=== PATIENT | female | born 1935 | race Caucasian/White ===

== ENCOUNTER 2020-12-23 12:19 | Outpatient (RCR) | payer MEDICARE, SELFPAY ==
[2020-12-23] MEDS: COVID-19 VACC, MRNA(PFIZER)/PF 30 MCG/0.3 ML SYRINGE IM (11:43)
== END 2021-03-24 23:59 ==
LOC: IMMUN 12:19
PROVIDERS: PCP Family Medicine; Visit Provider Family Medicine
DX: Z23 Encounter for immunization (principal)
CPT/HCPCS: 0001A; 91300

== ENCOUNTER → 2021-07-22 | Outpatient (CLI) | payer MEDICARE, SELFPAY ==
[2021-07-22 15:43] LABS: Absolute Lymphocyte Count 1.56 X10^3/uL (0.83-4.51); Absolute Neutrophil Count 4.2 X10^3/uL (2.0-7.7); Basophil# 0.03 X10^3/uL; Basophil% 0.5 % (0-1); Eosinophil# 0.26 X10^3/uL; Eosinophils% 4.1 % (0-5); Hematocrit 38.4 % (37-47); Hemoglobin 12.7 g/dL (12.0-15.0); Lymphocyte # 1.56 X10^3/ul (0.83-4.51); Lymphocyte % 24.4 % (19-41); Mean Corp Hgb Conc 33.1 g/dL (32-36); Mean Corpuscular Hgb 28.9 pg (27.0-32.0); Mean Corpuscular Volume 87.5 fL (81-99); Mean Platelet Vol. 11.3 fl (6.2-12.0); Monocyte# 0.39 X10^3/uL; Monocyte% 6.1 % (0-10); NRBC Flagged by Analyzer 0 % (0-5); Neutrophil # 4.15 X10^3/uL (2.7-7.7); Neutrophil % 64.7 % (47-70); POSITIVE COUNT YES; Platelet Count 252 K/mm3 (150-450); RBC Distribution Width CV 12.6 % (11.6-14.6); RBC Distribution Width SD 40.6 fl (35.1-43.9); Red Blood Count 4.39 M/mm3 (4.2-5.4); White Blood Count 6.4 K/mm3 (4.4-11.0)
[2021-07-22 15:53] LABS: AST(SGOT) 15 U/L (15-37); Alanine Aminotransfer ALT/SGPT 14 U/L (13-56); Albumin, Serum 3.3 g/dL (3.2-5.0); Alkaline Phosphatase 60 U/L (45-117); Anion Gap 8 (5-15); BUN 19 mg/dL (7-18); BUN/Creat Ratio 17.6 RATIO (10-20); Calcium,Total 9.2 mg/dL (8.5-10.1); Chloride 96 mmol/L (98-107); Creatinine, Serum 1.08 mg/dL (0.55-1.02); EST Glomerular Filtration Rate 51 mL/min (>60); Est Glom Filt Rate - Afr Amer 62 mL/min (>60); Globulin 3.2 g/dL (2.2-4.2); Glucose 154 mg/dL (74-106); Potassium 2.9 mmol/L (3.5-5.1); Protein, Total 6.5 g/dL (6.4-8.2); Sodium Level 138 mmol/L (136-145)
[2021-07-22 15:55] LABS: Differential Indicated SCAN CRITERIA MET
[2021-07-22 15:58] LABS: Hemoglobin A1c 6.5 % (3.8-5.6)
[2021-07-22 16:59] LABS: Platelet Estimate ADEQUATE (ADEQ); Red Cell Morphology NORM C+C NORMAL (NORM C&C)
== END | disposition home or self-care (01) ==
LOC: LABSPEC 14:52
PROVIDERS: PCP Family Medicine; Referring Provider Family Medicine; Visit Provider Family Medicine
DX: E11.9 Type 2 diabetes mellitus without complications (principal)
CPT/HCPCS: 80053; 83036; 85025

== ENCOUNTER 2023-11-25 08:58 | Inpatient (IN) | payer MEDICARE, MEDICAID, SELFPAY ==
[2023-11-25] VITALS (11 sets, daily range): BP systolic 129–168; BP diastolic 59–84; PULSE 65–86; RESP 12–21; TEMP 36.2–37.1; O2SAT 93–100; BMI 37.9; BMI 37.0
--- NOTE | 2023-11-25 09:15 | RAD_ITS ---
STUDY: X-RAY - LEFT KNEE REASON FOR EXAM: Female, 88 years old. Injury. Patient fell out of chair yesterday, left ankle pain, swelling, discoloring. TECHNIQUE: 2 views of the left knee. COMPARISON: None. FINDINGS: There is diffuse osteopenia. There is a fracture of the lateral aspect of the lateral tibial plateau. There is also a nondisplaced fracture of the proximal fibular metadiaphysis. Normal visualized distal femur. Normal proximal tibiofibular articulation. Normal medial femorotibial compartment. Normal lateral femorotibial compartment. Normal patellofemoral articulation. There is a large joint effusion. There are atherosclerotic calcifications. RAD/Knee 1 or 2 Views IMPRESSION: Diffuse osteopenia. Fracture of the lateral aspect of the lateral tibial plateau. Nondisplaced fracture of the proximal fibular metadiaphysis. Large joint effusion. Electronically Signed: Mio Schroeder MD at 10:29 EST ,
--- NOTE | 2023-11-25 09:15 | RAD_ITS ---
STUDY: X-RAY - LEFT ANKLE REASON FOR EXAM: Female, 88 years old. Injury. TECHNIQUE: 3 views of the left ankle. COMPARISON: None. FINDINGS: There is a suspected fracture of the medial malleolus of the distal tibia. There is an oblique fracture of the distal fibula. Intact visualized talus and calcaneus. There are plantar and posterior calcaneal spurs. The visualized subtalar, talonavicular, calcaneocuboid and tarsal articulations are normal. There is soft tissue swelling around the ankle. RAD/Ankle min 3 Views IMPRESSION: Suspected fracture of the medial malleolus of the distal tibia. Oblique fracture of the distal fibula. Plantar and posterior calcaneal spurs. Soft tissue swelling around the ankle. Electronically Signed: Mio Schroeder MD at 10:32 EST ,
[2023-11-25] MEDS: Ondansetron 4 MG/2 ML Vial IV (10:14)
[2023-11-25] MEDS: fentaNYL 100 MCG/2 ML Ampul 50 MCG IV (10:14)
--- NOTE | 2023-11-25 10:15 | EDS_ITS ---
HPI History of Present Illness Chief Complaint: Lower Extremity Injury Informant: patient and EMS Narrative Narrative: Patient had a injury home, where she lives with her , injuring her left ankle and she also has some pain up to her left knee. This occurred last night, while she was attempting to get in to her [id number] chair, after which her usually uses her Michael lift to help her get into bed, etc. She does not walk. She transitions though and she can use her legs to stand and help her self get from a sitting position to standing with the assistance of this chair. She was attempting to get into it when she slipped, did not know she injured anything, called paramedics so that they could get a lift assist, and there were no issues. This morning, they noticed that her left ankle is swollen, bruised, and very painful. She is on no anticoagulants. She did not injure anything else but unable to stand or move the left leg due to the pain. States no prodromal symptoms that she was well prior to this. PFSH PFSH Home Medications carvedilol 3.125 mg tablet 3.125 mg PO Q12H 11/25/23 [History Last Taken 11/24/23] enalapril maleate 20 mg tablet 20 mg PO Q12H 11/25/23 [History Last Taken 11/24/23] fluticasone 500 mcg-salmeterol 50 mcg/dose blistr powdr for inhalation 1 inh inhalation Q12H 11/25/23 [History Last Taken 11/24/23] furosemide 40 mg tablet 40 mg PO DAILY 11/25/23 [History Last Taken 11/24/23] glimepiride 1 mg tablet 1 mg PO DAILY 11/25/23 [History Last Taken 11/24/23] hydralazine 25 mg tablet 25 mg PO Q8H 11/25/23 [History Last Taken 11/24/23] multivitamin (Daily Multi-Vitamin tablet) 1 tab PO DAILY 11/25/23 [History Last Taken 11/24/23] nystatin 100,000 unit/gram topical cream 1 applic topical DAILY 11/25/23 [H istory Last Taken Unknown] omeprazole 40 mg capsule,delayed release 40 mg PO DAILY 11/25/23 [History Last Taken 11/24/23] rosuvastatin 10 mg tablet 10 mg PO DAILY 11/25/23 [History Last Taken 11/24/23] Allergy/AdvReac Type Severity Reaction Status Date / Time acetaminophen [From Tylenol] Allergy Rash Verified 11/25/23 09:06 Penicillins Allergy Other Verified 11/25/23 09:[address] [facility] ED Constitutional Constitutional ED: Denies chills or fever(s) Eyes Eyes: Denies change in vision or diplopia ENT ENT ED: Denies ear pain, epistaxis, facial pain or rhinorrhea Cardiovascular Cardiovascular: Denies chest pain or palpitations Respiratory/Chest Respiratory/Chest: Denies cough or dyspnea Gastrointestinal Gastrointestinal: Denies abdominal pain, diarrhea, melena, nausea or vomiting Genitourinary Genitourinary ED: Denies dysuria or hematuria Musculoskeletal Musculoskeletal: Reports extremity pain; Denies back pain or neck pain Integumentary Denies abscess, Abrasions, laceration or rash Neurologic Neurologic: Denies confusion, headache(s), paresthesias or weakness EXAM Physical Exam Const Vital Signs: 11/25/23 09:00 Temperature 97.2 F L Temperature Source Temporal Pulse Rate 68 Respiratory Rate 21 H Blood Pressure 159/75 H Blood Pressure Mean 103 Pulse Ox 93 Oxygen Delivery Method Room Air Positive well nourished, well developed and obese General Appearance ED: well developed and NAD Nutritional Appearance: obese HEENT Reports TM's clear and nasal mucous membranes and turbinates normal atraumatic Face and Sinus: Negative for facial tenderness Tympanic Membrane ED: Yes TM's clear Eyes PERRL and EOMs intact bilaterally Visual Acuity: other Other Details: no entrapment or pain with extraocular mo vements Neck full ROM and supple General: Negative for tenderness Chest Wall inspection of chest normal and palpation of chest normal Chest: symmetrical chest wall rise; Negative for crepitus or tenderness Resp normal respiratory effort and clear to auscultation bilaterally Percussion: other equal BS bilat Cardio no murmurs Rate: regular rate Rhythm: regular rhythm GI normal to inspection, nondistended, normoactive bowel sounds, soft to palpation and non-tender Back/Spine normal ROM Cervical Spine: Negative for cervical spine tenderness Thoracic Spine / Upper Back: Negative for thoracic spinal tenderness Lumbar Spine / Lower Back: Negative for lumbar spinal tenderness Extremity Extremity Narrative: Significant swelling and ecchymosis along with diffuse tenderness left ankle. No gross deformity. Neurovascular intact distally with brisk cap refill but I cannot feel pulses because of the edema. There is no foot tenderness proper. She does have tenderness in the lateral aspect of the left knee and limited range of motion there. I am having trouble ranging her left hip to check it for pain due to pain in the knee and the ankle, however she does not have any pain or tenderness there, nor the pelvis. She can move the other 3 extremities without any pain anywhere. There is no laceration of the left lower extremity or bleeding externally. General Extremety ED: Yes tenderness Neuro oriented x3, CN's II-XII intact bilaterally, moves all extremities, no focal motor deficits and no sensory deficits noted Ania Coma Scale: document GCS findings Spontaneous Obeys Commands Oriented 15 Sensorium / Orientation: awake and alert Psych mental status grossly normal and thought process normal Skin no wounds Lesions: no lesions Rashes: no rashes MDM MDM MDM Narrative Medical decision making narrative: Three-view x-ray series of the left ankle shows a bimalleolar fracture, there is no significant displacement. 2 view x-ray series of the left knee shows a proximal fibula fracture, concerning for Maison[place]uve injury. Patient is not able to go home with this, she can barely move much less walk on her right lower extremity without bearing weight on the left. Preoperative testing was obtained and I discussed with orthopedics, Dr. Ochoa was on for unassigned patients. Discussed with him, he states he is happy to consult, this may actually be a patient thatends up being casted without surgery . Will admit. Splinted see the procedure note. Lab Data Attestation: I reviewed the patient's lab results. Labs: Laboratory Results - last 24 hr 11/25/23 10:31 WBC 13.0 H RBC 3.99 L Hgb 11.3 L Hct 34.7 L MCV 87.0 MCH 28.3 MCHC 32.6 RDW Std Deviation 41.4 RDW Coeff of Yasir 13.1 Plt Count 280 MPV 10.5 Immature Gran % (Auto) 0.300 Neut % (Auto) 80.4 H Lymph % (Auto) 11.7 L [place] % (Auto) 6.6 Eos % (Auto) 0.7 Baso % (Auto) 0.3 Absolute Neuts (auto) 10.4 H Absolute Lymphs (auto) 1.51 Nucleated RBC % 0 Sodium 138 Potassium 3.2 L Chloride 100 Carbon Dioxide 33.0 H Anion Gap 5 BUN 13 Creatinine 0.96 Est GFR (MDRD) Af Amer 70 Est GFR (MDRD) Non-Af 58 L BUN/Creatinine Ratio 13.5 Glucose 207 H Calcium 9.3 Radiography Diagnostic Testing: Clinical Impression(s) from Imaging Studies Ankle X-Ray 11/25/23 09:15 IMPRESSION: Suspected fracture of the medial malleolus of the distal tibia. Oblique fracture of the distal fibula. Plantar and posterior calcaneal spurs. Soft tissue swelling around the ankle. Electronically Signed: Mio Schroeder MD at 10:32 EST , Knee X-Ray 11/25/23 09:15 IMPRESSION: Diffuse osteopenia. Fracture of the lateral aspect of the lateral tibial plateau. Nondisplaced fracture of the proximal fibular metadiaphysis. Large joint effusion. Electronically Signed: Mio Schroeder MD at 10:29 EST , Chest X-Ray 11/25/23 10:45 IMPRESSION: Borderline cardiomegaly. The lungs are clear. Electronically Signed: Edgardo Lennon MD at 10:58 EST , Rhythm Strip Rhythm Strip: Sinus Rhythm Rate: 75 Ectopy: PVC(s) EKG Initial EKG: Attestation: I personally reviewed and interpreted this EKG as follows: Interpretation: Sinus Rhythm, No Acute Injury Pattern, LBBB and Inverted T-Waves (1, aVL only) Prior EKG tracings: not available for review Prior: No Prior Management Discussion w/another healthcare provider: Hospitalist and Test Manager (Elham Ochoa) Procedures Lower Extremity Splints Lower Extremity Splint: Orthoglass and Long leg (With sugar-tong) Splint Fabrication: Fabricated (Neurovascular intact distally after placement) Location: Left Discharge Plan Dx/Rx/DC Orders Clinical Impression: Bimalleolar fracture of left ankle, Closed Maisonneuve fracture of left fibula Disposition Disposition: Acute Care Hospital [facility]
[2023-11-25 10:45] LABS: Absolute Lymphocyte Count 1.51 X10^3/uL (0.83-4.51); Absolute Neutrophil Count 10.4 X10^3/uL (2.0-7.7); Basophil# 0.04 X10^3/uL; Basophil% 0.3 % (0-1); Eosinophil# 0.09 X10^3/uL; Eosinophils% 0.7 % (0-5); Hematocrit 34.7 % (37-47); Hemoglobin 11.3 g/dL (12.0-15.0); Lymphocyte # 1.51 X10^3/ul (0.83-4.51); Lymphocyte % 11.7 % (19-41); Mean Corp Hgb Conc 32.6 g/dL (32-36); Mean Corpuscular Hgb 28.3 pg (27.0-32.0); Mean Platelet Vol. 10.5 fl (6.2-12.0); Monocyte# 0.85 X10^3/uL; Monocyte% 6.6 % (0-10); NRBC Flagged by Analyzer 0 % (0-5); Neutrophil # 10.43 X10^3/uL (2.7-7.7); Neutrophil % 80.4 % (47-70); Platelet Count 280 K/mm3 (150-450); RBC Distribution Width CV 13.1 % (11.6-14.6); RBC Distribution Width SD 41.4 fl (35.1-43.9); Red Blood Count 3.99 M/mm3 (4.2-5.4)
--- NOTE | 2023-11-25 10:45 | RAD_ITS ---
STUDY: X-RAY CHEST REASON FOR EXAM: Female, 88 years old. Preop clearance TECHNIQUE: Single AP portable view of the chest. COMPARISON: None. FINDINGS: EKG electrodes are seen. The lungs are clear and expanded. There is no demonstrated pleural abnormality. There is borderline cardiomegaly. Normal mediastinum and augustina. Normal visualized pulmonary arteries. There is atherosclerotic calcification of the aortic arch with tortuosity. Normal visualized thoracic spine. There is degenerative osteoarthritis of the bilateral shoulders. There is no demonstrated abnormality of the visualized soft tissue structures of the upper abdomen. RAD/Chest 1 View (Portable) IMPRESSION: Borderline cardiomegaly. The lungs are clear. Electronically Signed: Edgardo Lennon MD at 10:58 EST ,
[2023-11-25 10:51] LABS: Anion Gap 5 (5-15); BUN 13 mg/dL (7-18); BUN/Creat Ratio 13.5 RATIO (10-20); Calcium,Total 9.3 mg/dL (8.5-10.1); Chloride 100 mmol/L (98-107); Creatinine, Serum 0.96 mg/dL (0.55-1.02); EST Glomerular Filtration Rate 58 mL/min (>60); Est Glom Filt Rate - Afr Amer 70 mL/min (>60); Glucose 207 mg/dL (74-106); Potassium 3.2 mmol/L (3.5-5.1); Sodium Level 138 mmol/L (136-145)
--- NOTE | 2023-11-25 10:52 | ED.RN ---
NO OLD EKG
--- NOTE | 2023-11-25 11:42 | PCM.HP.STD ---
HPI - General General Date of Admission: 11/25/23 Date of Service: 11/25/23 Chief Complaint: Left lower extremity swelling and pain HPI Narrative JEANNETTE PATEL, is a 88 F with multiple comorbidities Including obesity with BMI of 37, dyslipidemia and GERD, who is hardly ambulatory at home brought to the emergency department by the . Patient apparently fell a day prior to her admission was tried to get into her sit to stand chair. She apparently twisted her left ankle which was straightened by the . Patient however could not lift patient of the floor not had to call EMS to assist. later noticed significant swelling in the evening he did apply ice without much improvement decision was therefore made for patient to present to the emergency department. Imaging studies obtained in the ED did show diffuse osteopenia, fracture of the lateral aspect of the lateral tibial plateau. Nondisplaced fracture of the proximal fibular metadiaphysis. Large joint effusion. Suspected fracture of the medial malleolus of the distal tibia. Oblique fracture of the distal fibula. Plantar and posterior calcaneal spurs. Soft tissue swelling around the ankle. Patient underwent immobilization in the ED orthopedic surgeon on-call Dr. Toledo was notified prior to patient being admitted to regular nursing floor [facility] Medical History (Updated 11/25/23 @ 14:[address] Stevan Alexander MD) Anxiety Asthma Chest pain CHF (congestive heart failure) COPD (chronic obstructive pulmonary disease) Coronary artery disease DVT (deep venous thrombosis) Former smoker HTN (hypertension) Osteoporosis Stroke/cerebrovascular accident Home Medications albuterol sulfate 90 mcg/actuation aerosol inhaler 2 puff inhalation Q6H PRN shortness of breath or wheezing 11/25/23 [History Last Taken Unknown] carvedilol 3.125 mg tablet 3.125 mg PO Q12H 11/25/23 [History Last Taken 11/24/23] enalapril maleate 20 mg tablet 20 mg PO Q12H 11/25/23 [History Last Taken 11/24/23] fluticasone 500 mcg-salmeterol 50 mcg/dose blistr powdr for inhalation 1 inh inhalation Q12H 11/25/23 [History Last Taken 11/24/23] furosemide 40 mg tablet 40 mg PO DAILY 11/25/23 [History Last Taken 11/24/23] glimepiride 1 mg tablet 1 mg PO DAILY 11/25/23 [History Last Taken 11/24/23] multivitamin (Daily Multi-Vitamin tablet) 1 tab PO DAILY 11/25/23 [History Last Taken 11/24/23] nystatin 100,000 unit/gram topical cream 1 applic topical DAILY 11/25/23 [History Last Taken Unknown] omeprazole 40 mg capsule,delayed release 40 mg PO DAILY 11/25/23 [History Last Taken 11/24/23] rosuvastatin 10 mg tablet 10 mg PO DAILY 11/25/23 [History Last Taken 11/24/23] Allergy/AdvReac Type Severity Reaction Status Date / Time acetaminophen [From Tylenol] Allergy Rash Verified 11/25/23 09:06 Penicillins Allergy Other Verified 11/25/23 09:06 Surgical History (Updated 11/25/23 @ 13:45 by Catalina Avila) History of appendectomy Social History Smoking Status: Former smoker ROS ROS Narrative GENERAL: denies fever, chills, night sweats, weight loss, anorexia HEENT: denies headache, sinus congestion, or drainage, dysphagia RESPIRATORY: denies cough, sputum production, shortness of breath, dyspnea on exertion CARDIAC: denies chest pain, palpitations, orthopnea, PND GASTROINTESTINAL: denies abdominal pain, nausea, vomiting, melena, GENITOURINARY: denies dysuria, urgency, frequency, heamaturia EXTREMITY: denies swelling MUSCULOSKELETAL: Left ankle and knee pain and swelling NEUROLOGIC: denies focal numbness, weakness, tingling HEMATOLOGIC: denies easy bruising and/or hemorrhage INTEGUMENT: denies rashes PSYCHIATRIC: denies suicidal or homicidal ideation Vital Signs Vital Signs Vital Signs: 11/25/23 09:00 Temperature 97.2 F L Temperature Source Temporal Pulse Rate 68 Respiratory Rate 21 H Blood Pressure 159/75 H Blood Pressure Mean 103 Pulse Ox 93 Oxygen Delivery Method Room Air Physical Exam Narrative GENERAL: cooperative HEENT: Atraumatic; normocephalic EYES; Anicteric, Normal Conjunctiva NECK; supple, normal thyroid, RESPIRATORY: Diminished to auscultation CARDIOVASCULAR: Regular S1 S2, GI: soft, normoactive bowel sounds, : No Renal angle tenderness; EXTREMITIES: No edema, no clubbing, MUSCULOSKELETAL: Left lower extremity immobilized from the knee to the ankle NEURO: Awake; no lateralizing signs. SKIN: No Rash PSYCH; Flat affect Results Lab / Micro Data 11/25/23 10:31 11/25/23 10:31 Labs: Laboratory Results - last 24 hr 11/25/23 10:31: WBC 13.0 H, RBC 3.99 L, Hgb 11.3 L, Hct 34.7 L, MCV 87.0, MCH 28.3, MCHC 32.6, RDW Std Deviation 41.4, RDW Coeff of Yasir 13.1, Plt Count 280, MPV 10.5, Immature Gran % (Auto) 0.300, Neut % (Auto) 80.4 H, Lymph % (Auto) 11.7 L, [place] % (Auto) 6.6, Eos % (Auto) 0.7, Baso % (Auto) 0.3, Absolute Neuts (auto) 10.4 H, Absolute Lymphs (auto) 1.51, Nucleated RBC % 0, Sodium 138, Potassium 3.2 L, Chloride 100, Carbon Dioxide 33.0 H, Anion Gap 5, BUN 13, Creatinine 0.96, Est GFR (MDRD) Af Amer 70, Est GFR (MDRD) Non-Af 58 L, BUN/Creatinine Ratio 13.5, Glucose 207 H, Calcium 9.3 Rhythm Strip Rhythm Strip: Sinus Rhythm Rate: 75 Ectopy: PVC(s) Imaging Radiology Impression Ankle X-Ray 11/25/23 09:15 IMPRESSION: Suspected fracture of the medial malleolus of the distal tibia. Oblique fracture of the distal fibula. Plantar and posterior calcaneal spurs. Soft tissue swelling around the ankle. Electronically Signed: Mio Schroeder MD at 10:32 EST , Knee X-Ray 11/25/23 09:15 IMPRESSION: Diffuse osteopenia. Fracture of the lateral aspect of the lateral tibial plateau. Nondisplaced fracture of the proximal fibular metadiaphysis. Large joint effusion. Electronically Signed: Mio Schroeder MD at 10:29 EST , Chest X-Ray 11/25/23 10:45 IMPRESSION: Borderline cardiomegaly. The lungs are clear. Electronically Signed: Edgardo Lennon MD at 10:58 EST , Assessment & Plan Assessment/Plan (1) Bimalleolar fracture of left ankle: QUALIFIERS: Encounter type: initial encounter Fracture type: closed Qualified Code(s): S82.842A - Displaced bimalleolar fracture of left lower leg, initial encounter for closed fracture (2) Fracture of left tibial plafond with involvement of fibula: QUALIFIERS: Encounter type: initial encounter Fracture type: closed Qualified Code(s): S82.872A - Displaced pilon fracture of left tibia, initial encounter for closed fracture; S82.832A - Other fracture of upper and lower end of left fibula, initial encounter for closed fracture PLAN: Plan Patient is an 88-year-old lady admitted following a fall 1. Fall with left knee and ankle fracture ? Imaging studies demonstrated fracture of the lateral aspect of the lateral tibial plateau. Nondisplaced fracture of the proximal fibular metadiaphysis. Large joint effusion. Suspected fracture of the medial malleolus of the distal tibia. Oblique fracture of the distal fibula. Plantar and posterior calcaneal spurs. Soft tissue swelling around the ankle. Patient underwent immobilization in the ED orthopedic surgeon on-call Dr. Toledo was notified prior to patient being admitted to regular nursing floor 2. GERD ? On PPI 3. Dyslipidemia -Patient is on statin therapy, continued at home dose 4. Diabetes mellitus type II -patient's oral hypoglycemics held. Placed on long acting insulin, Accu-Cheks a.c. and at bedtime and covered with sliding scale insulin 5. Chronic congestive heart failure ? Suspected heart failure with preserved ejection fraction; Patient is on furosemide did continue 6. Mild intermittent asthma ? Patient is on bronchodilator treatment at home did continue 7. Class II obesity with BMI 37 ? Complicating care, weight loss advised 8. Hypertension - Blood pressure controlled, home medications continued with dose adjustment as needed 9. Hypokalemia ? Corrected per protocol 10. Mild anemia ? Secondary to anemia of chronic disorder monitoring H&H with plans to transfuse if patient becomes symptomatic or hemoglobin falls below 7 11. DVT prophylaxis ? SC heparin Time spent in the patient's overall evaluation,decision-making process, review of diagnostic data, adjustment of management, discussion with other providers, nursing nursing and ancillary staff involved in patient's care documentation, 75 Minutes Advance planning; did discuss with the patient and family regarding advanced directives as well as CODE STATUS. Did explain the various scenarios involved ( FULL CODE, DNR CCA, DNR CCA with no intubation, and DNR CC and what each meant) patient elected to remain full code with CPR and intubation if needed. Order was placed. Time spent on discussion 18 minutes. Charges/Coding Visit Charges Inpatient E&M: 51866 Init Hosp L3 Procedures Hospitalists Procedures: 42331 Advncd Care Plan 30 Min
--- OUTSIDE RECORDS SUMMARY | 2023-11-25 12:58 | XMS RPT_ITS | CCD ---
Author Name Unknown Address [address] [place] [address] Organization [facility] Care Team Providers Care Data Collection Associate Name Role Phone Kirby Dukes Primary Care Provider KIRBY DUKES Primary Care Unavailable ERNST, KIRBY Attending Unavailable ERNST, KIRBY Primary Care Unavailable LISSETTE BAER Attending Unavailable PETRILLA, KIRBY Primary Care Unavailable CANDY TORRES Attending Unavailable PETRILLA, KIRBY Primary Care Unavailable LOURDES LOW Attending Unavailable PETRILLA, KIRBY Attending Unavailable PETRILLA, KIRBY Primary Care Unavailable PETRILLA, KIRBY Primary Care Unavailable PETRIBETSYA, KIRBY Attending Unavailable PETRILLA, KIRBY Primary Care Unavailable PETRIBETSYA, KIRBY Primary Care Unavailable PETRIBETSYA, KIRBY Attending Unavailable PETRILLA, KIRBY Attending Unavailable PETRILLA, KIRBY Primary Care Unavailable PETRILLA, KIRBY Primary Care Unavailable PETRILLA, KIRBY Attending Unavailable Allergies Allergy Classification Reported Allergen(s) Allergy Type Date of Onset Reaction(s) Facility Acetaminophen (1 source) Acetaminophen Drug Allergy 02-26-20 15 Hives, Shortness Of Breath [facility] Aztreonam (1 source) Aztreonam Drug Allergy 11-05-19 16 [facility] Doxycycline (1 source) Doxycycline Drug Allergy 02-26-20 15 Hives [facility] Latex (1 source) Latex Substance Allergy 02-26-20 15 Hives [facility] nickel sulfate (1 source) nickel sulfate Drug Allergy 11-05-19 16 [facility] NSAIDs (1 source) celecoxib Drug Allergy 11-05-19 16 Other (See Comments) [facility] Work Phone: Opioid Agonists (1 source) Codeine Drug Allergy 02-26-20 15 Hives [facility] Penicillins (antibiotic) (1 source) Penicillins Drug Allergy 11-05-19 16 [facility] phenacetin (1 source) [facility] 11-05-[facility] Saccharin Drug Allergy 11-05-19 16 [facility] Sulfamethoxazole / Trimethoprim (1 source) Sulfamethoxazole / Trimethoprim Drug Allergy 02-26-20 15 Hives [facility] (5 sources) Acetaminophen Drug Allergy 02-26-20 15 Hives, Shortness Of Breath [place] (20 sources) Aztreonam Drug Allergy 11-05-19 16 [place] ([place] sources) celecoxib Drug Allergy 11-05-19 16 Other (See Comments) [place] ([place] sources) Codeine Drug Allergy 02-26-20 15 [place] ([place] sources) Doxycycline Drug Allergy 02-26-20 15 [place] ([place] sources[place] Latex Propensity to adverse reactions to drug 02-26-20 15 [place] ([place] sources) nickel sulfate Drug Allergy 11-05-19 16 [place] ([place] sources[place] Penicillins Propensity to adverse reactions to drug 11-05-19 16 [place] ([place] sources[place] Saccharin Drug Allergy 11-05-19 16 [place] ([place] sources[place] Sulfamethoxazole / Trimethoprim Drug Allergy 02-26-20 15 [place] (6 sources) Carbapenems Propensity to adverse reactions to drug 11-05-19 16 [place] ([place] sources[place] Amphetamines Propensity to adverse reactions to drug 11-05-19 16 [place] ([place] sources[place] Phenacetin Propensity to adverse reactions to drug 11-05-19 16 [place] ([place] sources[place] Propacetamol Propensity to adverse reactions to drug 11-05-19 16 [place]aphyl[place] ([place] sources) Acetaminophen Drug Allergy 02-26-20 15 Hives, Shortness of breath, Anaphylaxis [facility] (20 sources) Amphetamine Drug Allergy 01-21-20 23 [facility] (20 sources) Benzathine penicillin - chemical Allergy to substance 01-21-20 23 [facility] (20 sources) Carbamazepine Allergy to substance 02-15-20 17 [facility] (20 sources) celecoxib Drug Allergy 11-05-19 16 [facility] (20 sources) EPINEPHrine Drug Allergy 02-15-20 17 [facility] (20 sources) Latex Allergy to substance 02-26-20 15 Hives [facility] (20 sources) Morphine Drug Allergy 02-15-20 17 [facility] (20 sources) Penicillins Drug Allergy 11-05-19 16 [facility] (20 sources) Pseudoephedrine Drug Allergy 01-21-20 23 [facility] (20 sources) Sulfonamides (Antibiotic) Drug Allergy 02-15-20 17 [facility] (20 sources) Naqck-Uqmebyff-Ko Grass-Hydran Drug Allergy 02-15-20 17 [facility] (20 sources) Carbapenems Drug Intolerance 11-05-19 16 [facility] (20 sources) Phenacetin Propensity to adverse reactions 11-05-19 16 Anaphylaxis [facility] (20 sources) Shellfish-Derived Products Drug Allergy 02-15-20 17 Swelling [facility] (20 sources) Wound Dressings Drug Allergy 01-21-20 23 Rash [facility] (19 sources) Propacetamol Propensity to adverse reactions 11-05-19 16 Anaphylaxis [facility] Medications Current Medications Medication Drug Class(es) Dates Sig (Normalized) Sig (Original) [id number] 200 actuat albuterol 0.09 mg/actuat metered dose inhaler (20 sources) beta2-Adrenergic Agonist Start: 09-13-2023 take 2 puff(s) by inhalation every six hours as needed albuterol 108 (90 Base) MCG/ACT inhaler Indications: Pulmonary emphysema, unspecified emphysema type (HCC) Inhale 2 puffs every 6 hours as needed for shortness of breath for up to 30 doses. 18 g 11 09/13/2023 Active Completed/Discontinued Medications Medication Drug Class(es) Dates Sig (Normalized) Sig (Original) 10 ml calcium gluconate 100 mg/ml injection (2 sources) Start: 10-16-2020 End: 10-16-2020 calcium gluconate 10 % injection 1 g cefdinir 300 mg oral capsule (2 sources) Cephalosporin Antibacterial Start: 10-16-2020 End: 10-19-2020 cefdinir (OMNICEF) capsule 300 mg cloNIDine hydrochloride 0.1 mg oral tablet (3 sources) Central alpha-2 Adrenergic Agonist Start: 10-15-2020 End: 10-21-2020 cloNIDine (CATAPRES) 0.1 MG tablet Decrease to one bid 180 tablet 1 10/15/2020 10/21/2020 Discontinued (Stop Taking at Discharge) Problems Active Problems Problem Classification Problem Date Documented Da te Episodic/Chronic Acute and unspecified renal failure (3 sources) Acute injury of kidney; Translations: [ISA (acute kidney injury)] Onset: 10-16-2020 10-16-2020 Asthma (20 sources) Asthma; Translations: [Unspecified asthma, uncomplicated] Onset: 02-25-2017 02-25-2017 Chronic Chronic kidney disease (20 sources) Chronic kidney disease stage 3; Translations: [Stage 3 chronic kidney disease] Onset: 01-11-2022 Resolved: 01-20-2023 01-20-2022 Chronic Chronic kidney disease (2 sources) Chronic kidney disease; Translations: [Chronic kidney disease, stage 3a (HCC)] Onset: 08-02-2022 Chronic obstructive pulmonary disease and bronchiectasis (20 sources) Chronic obstructive lung disease; Translations: [Chronic obstructive pulmonary disease, unspecified] Onset: 02-25-2017 02-25-2017 Chronic Chronic ulcer of skin (11 sources) Pressure ulcer of sacral region; Translations: [Pressure ulcer of sacral region, unspecified stage] Onset: 07-19-2023 07-08-2023 Chronic Congestive heart failure; nonhypertensive (20 sources) Heart failure with reduced ejection fraction; Translations: [Diastolic heart failure] Onset: 03-17-2020 Resolved: 07-06-2021 10-16-2020 Chronic Diabetes mellitus with complications (20 sources) Type 2 diabetes mellitus; Translations: [Type 2 diabetes mellitus with diabetic chronic kidney disease] Onset: 01-20-2022 Resolved: 03-24-2023 01-20-2022 Chronic Diabetes mellitus without complication (20 sources) Type 2 diabetes mellitus without complication; Translations: [Type 2 diabetes mellitus] Onset: 10-17-2010 Resolved: 07-06-2021 02-25-2017 Chronic Disorders of lipid metabolism (20 sources) Hypercholesterolemia ; Translations: [Pure hypercholesterolemia , unspecified] Onset: 01-20-2023 01-20-2023 Chronic Essential hypertension (20 sources) Hypertensive disorder; Translations: [Essential (primary) hypertension] Onset: 10-16-2020 02-25-2017 Chronic Malaise and fatigue (12 sources) Asthenia; Translations: [Other malaise] Onset: 10-16-2020 Resolved: 07-06-2021 10-16-2020 Episodic Open wounds of head; neck; and trunk (2 sources) Unspecified open wound of right buttock, subsequent encounter; Translations: [Unspecified open wound of right buttock, subsequent encounter] Onset: 11-01-2023 Episodic Osteoarthritis (20 sources) Osteoarthritis; Translations: [Unspecified osteoarthritis, unspecified site] Onset: 02-25-2017 02-25-2017 Chronic Other diseases of kidney and ureters (1 source) Renal impairment; Translations: [Renal insufficiency] Episodic Other diseases of kidney and ureters (4 sources) Cyst of kidney; Translations: [Renal cyst] 02-25-2017 Other hereditary and degenerative nervous system conditions (5 sources) Mild cognitive impairment, so stated; Translations: [Mild cognitive impairment, so stated] Onset: 11-01-2023 07-19-2023 Chronic Other hereditary and degenerative nervous system conditions (8 sources) Impaired cognition; Translations: [Mild cognitive impairment, so stated] Onset: 11-01-2023 11-01-2023 Chronic Other lower respiratory disease (2 sources) Dyspnea on exertion; Translations: [WRIGHT (dyspnea on exertion)] Episodic Other nutritional; endocrine; and metabolic disorders (20 sources) Morbid obesity; Translations: [Morbid (severe) obesity due to excess calories] Onset: 03-28-2020 03-28-2020 Chronic Other nutritional; endocrine; and metabolic disorders (2 sources) Morbid (severe) obesity due to excess calories; Translations: [Morbid (severe) obesity due to excess calories (HCC)] Onset: 08-02-2022 Chronic Other upper respiratory disease (20 sources) Allergic rhinitis; Translations: [Allergic rhinitis, unspecified] Onset: 02-25-2017 02-25-2017 Chronic Pulmonary heart disease (20 sources) Pulmonary arterial hypertension; Translations: [Secondary pulmonary arterial hypertension] Onset: 03-17-2020 04-13-2020 Chronic Residual codes; unclassified (20 sources) Obstructive sleep apnea syndrome; Translations: [Obstructive sleep apnea (adult) (pediatric)] Onset: 01-11-2022 01-20-2022 Chronic Spondylosis; intervertebral disc disorders; other back problems (20 sources) Degeneration of lumbar intervertebral disc; Translations: [Degeneration of cervical intervertebral disc] Onset: 02-25-2017 Resolved: 03-24-2023 03-09-2019 Chronic Past or Other Problems Problem Classification Problem Date Documented Date Episodic/Chronic Acute and unspecified renal failure (2 sources) Acute injury of kidney; Translations: [Acute kidney failure, unspecified] Onset: 10-16-2020 Resolved: 07-06-2021 10-16-2020 Episodic Allergic reactions (20 sources) Eczema; Translations: [Dermatitis, unspecified] Onset: 02-25-2017 02-25-2017 Episodic Biliary tract disease (20 sources) Biliary calculus; Translations: [Calculus of gallbladder without cholecystitis without obstruction] Onset: 10-17-2010 02-25-2017 Episodic Diabetes mellitus without complication (6 sources) Impaired glucose tolerance; Translations: [Impaired glucose tolerance (oral)] Resolved: 10-28-2016 10-28-2016 Episodic Fluid and electrolyte disorders (10 sources) Metabolic acidosis; Translations: [Hyperkalemia] Onset: 10-16-2020 Resolved: 07-06-2021 10-16-2020 Episodic Hypertension with complications and secondary hypertension (6 sources) Renovascular hypertension; Translations: [Renovascular hypertension] Onset: 10-17-2015 Resolved: 02-27-2018 02-27-2018 Chronic Other and unspecified benign neoplasm (20 sources) History of polyp of colon; Translations: [Personal history of colonic polyps] Onset: 02-25-2017 02-25-2017 Episodic Other diseases of kidney and ureters (20 sources) Cyst of kidney; Translations: [Cyst of kidney, acquired] Onset: 02-25-2017 02-25-2017 Episodic Other female genital disorders (20 sources) H/O gynecological disorder; Translations: [Personal history of other diseases of the female genital tract] Onset: 02-25-2017 02-25-2017 Episodic Other non-traumatic joint disorders (5 sources) Shoulder pain; Translations: [Pain in left shoulder] Onset: 10-16-2020 Resolved: 07-06-2021 10-16-2020 Episodic Viral infection (20 sources) Disease caused by 2019-nCoV; Translations: [COVID-19] Onset: 07-02-2023 Resolved: 11-01-2023 07-19-2023 Episodic Results Test Name Value Interpretation Reference Range Facil ity Vital Signs Date Time Vital Sign Value Performing Clinician Faci mirlande 08-29-2023 13:39-0500 Body height 152.4 cm Candy Torres MD Work Phone: [facility] [place] 08-29-2023 13:39-0500 Body mass index (BMI) [Ratio] 36.13 kg/m2 Candy Torres MD Work Phone: [facility] 08-29-2023 13:39-0500 Body weight 83.92 kg Candy Torres MD Work Phone: [facility] 08-29-2023 13:39-0500 Diastolic blood pressure 70 mm[Hg] Candy Torres MD Work Phone: [facility] 08-29-2023 13:39-0500 Heart rate 57 /min Candy Torres MD Work Phone: [facility] 08-29-2023 13:39-0500 SaO2% (BldA) [Mass fraction] 93 % Candy Torres MD Work Phone: [facility] 08-29-2023 13:39-0500 Systolic blood pressure 140 mm[Hg] Candy Torres MD Work Phone: [facility] [place] 07-26-2023 10:06-0400 Body height 154.9 cm Lissette Keyur PA-C Work Phone: [facility] 07-26-2023 10:06-0400 Body mass index (BMI) [Ratio] 34.65 kg/m2 Lissette Keyur PA-C Work Phone: [facility] [place] 07-26-2023 10:06-0400 Body weight 83.19 kg Lissette Keyur PA-C Work Phone: [facility] [place] 07-26-2023 10:06-0400 Diastolic blood pressure 64 mm[Hg] Lissette Keyur PA-C Work Phone: [facility] 07-26-2023 10:06-0400 Heart rate 64 /min Lissette Keyur PA-C Work Phone: [facility] 07-26-2023 10:06-0400 Respiratory rate 16 /min Lissette Keyur PA-C Work Phone: [employer] 07-26-2023 10:06-0400 SaO2% (BldA) [Mass fraction] 93 % Lissette Keyur PA-C Work Phone: [employer] [place] 07-26-2023 10:06-0400 Systolic blood pressure 102 mm[Hg] Lissette Keyur PA-C Work Phone: [employer] [place] 07-19-2023 14:12-0400 Body height 154.9 cm Kirby Castellanosa DO Work Phone: [employer] 07-19-2023 14:12-0400 Body temperature 97.5 [degF] Kirby Dukes DO Work Phone: [employer] 07-19-2023 14:12-0400 Diastolic blood pressure 66 mm[Hg] Kirby Dukes DO Work Phone: [employer] 07-19-2023 14:12-0400 Heart rate 61 /min Kirby Dukes DO Work Phone: [employer] 07-19-2023 14:12-0400 SaO2% (BldA) [Mass fraction] 92 % Kirby Dukes DO Work Phone: [employer] [place] 07-19-2023 14:12-0400 Systolic blood pressure 110 mm[Hg] Kirby Dukes DO Work Phone: [employer] [place] 12-02-2020 20:32-0500 BP Diastolic 94 mm[Hg] JAROCHO PHILLIPS Work Phone: 12-02-2020 20:32-0500 BP Systolic 189 mm[Hg] JAROCHO BRANDONA Work Phone: 12-02-2020 20:32-0500 Pulse (Heart Rate) 61 /min JAROCHO PHILLIPS Work Phone: 12-02-2020 20:32-0500 Pulse Oximetry 96 % JAROCHO PHILLIPS Work Phone: 12-02-2020 17:23-0500 Body Temperature 97.11 [degF] JAROCHO PHILLIPS Work Phone: 12-02-2020 17:23-0500 Respiratory Rate 18 /min JAROCHO PHILLIPS Work Phone: 12-02-2020 17:17-0500 BMI (Body Mass Index) 35.35 kg/m2 JAROCHO Hughes [employer] Work Phone: 12-02-2020 17:17-0500 Body weight 82.1 kg JAROCHO Hughes [employer] Work Phone: 12-02-2020 17:17-0500 Height 152.4 cm JAROCHO Hughes [employer] Work Phone: 10-22-2020 11:25-0500 Body Temperature 97.11 [degF] [place] 10-22-2020 11:25-0500 BP Diastolic 86 mm[Hg] [place] 10-22-2020 11:25-0500 BP Systolic 172 mm[Hg] [place] 10-22-2020 11:25-0500 Pulse (Heart Rate) 65 /min [place] 10-22-2020 11:25-0500 Pulse Oximetry 98 % [place] 10-22-2020 11:25-0500 Respiratory Rate 20 /min [place] 10-22-2020 03:19-0500 BMI (Body Mass Index) 39.1 kg/m2 [place] 10-22-2020 03:19-0500 Body weight 87.8 kg [place] 10-16-2020 04:17-0500 Height 149.9 cm [place] Encounters Encounter Date Encounter Type Care Provider Facility Start: 11-21-2023 End: 11-21-2023 ambulatory KIRBY DUKES [facility] Start: 11-21-2023 End: 11-21-2023 Office outpatient visit 15 minutes Kirby Dukes DO Work Phone: [facility] Procedures Date Procedure Procedure Detail Performing Clinician Start: 09-13-2023 Adult depression scr eening assessment Kirby Dukes DO Work Phone: Start: 08-29-2023 Follow-up visit Follow-up CANDY TORRES Start: 07-26-2023 Ecg routine ecg w/le ast 12 lds trcg only w/o i&r Candy Torres MD Work Phone: Start: 09-16-2021 Lipid 1996 panel - S gonzalez or Plasma Kirby Dukes DO Work Phone: Start: 05-06-2021 Radiologic exam swal low function contrast study Kirby Dukes DO Work Phone: Start: 05-06-2021 LABORATORY COORDINATOR MODIFIED BARIUM SWALLOW STUDY (MBS) Kirby Dukes DO Work Phone: Start: 12-02-2020 Blood count complete auto&auto difrntl wbc Horacio Das Work Phone: Start: 12-02-2020 Assay of troponin quantitative Horacio Das Work Phone: Start: 12-02-2020 Comprehensive metabo lic panel Horacio Das Work Phone: Start: 12-02-2020 Radiologic exam ches t single view Horacio Das Work Phone: Start: 12-02-2020 Ecg routine ecg w/le ast 12 lds w/i&r Horacio Das Work Phone: Start: 10-22-2020 Gluc bld gluc mntr d ev cleared fda spec home use Imola K Osapay Work Phone: Start: 10-22-2020 Gluc bld gluc mntr d ev cleared fda spec home use Imola K Osapay Work Phone: Start: 10-22-2020 Assay of magnesium Nenae r Jose Work Phone: Start: 10-22-2020 [facility] Work [facility]: Start: 10-22-2020 Blood count complete auto&auto difrntl wbc Bren Acierno Work Phone: Start: 10-21-2020 Gluc bld gluc mntr d ev cleared fda spec home use Imola K Osapay Work Phone: Start: 10-21-2020 Gluc bld gluc mntr d ev cleared fda spec home use Imola K Osapay Work Phone: Start: 10-21-2020 Gluc bld gluc mntr d ev cleared fda spec home use Imola K Osapay Work Phone: Start: 10-21-2020 RESPIRATORY PANEL, MOLECULAR, WITH COVID-19 Bj Prattodi Work Phone: Start: 10-21-2020 Gluc bld gluc mntr d ev cleared fda spec home use Imola K Osapay Work Phone: Start: 10-21-2020 Assay of magnesium Ambe r Acierno Work Phone: Start: 10-21-2020 Basic metabolic pane l calcium total [facility] Work Phone: Start: 10-21-2020 Blood count complete auto&auto difrntl wbc Bren Acierno Work Phone: Start: 10-20-2020 Gluc bld gluc mntr d ev cleared fda spec home use Imola K Osapay Work Phone: Start: 10-20-2020 Gluc bld gluc mntr d ev cleared fda spec home use Imola K Osapay Work Phone: Start: 10-20-2020 Gluc bld gluc mntr d ev cleared fda spec home use Imola K Osapay Work Phone: Start: 10-20-2020 Gluc bld gluc mntr d ev cleared fda spec home use Imola K Osapay Work Phone: Start: 10-20-2020 Assay of magnesium Ambe r Acierno Work Phone: Start: 10-20-2020 Basic metabolic pane l calcium total Shay Hsu Work Phone: Start: 10-20-2020 Blood count complete auto&auto difrntl wbc Bren Acierno Work Phone: Start: 10-19-2020 Gluc bld gluc mntr d ev cleared fda spec home use Imola K Osapay Work Phone: Start: 10-19-2020 Basic metabolic pane l calcium total Delbert Diaz Work Phone: Start: 10-19-2020 Gluc bld gluc mntr d ev cleared fda spec home use Imola K Osapay Work Phone: Start: 10-19-2020 Gluc bld gluc mntr d ev cleared fda spec home use Imola K Osapay Work Phone: Start: 10-19-2020 Gluc bld gluc mntr d ev cleared fda spec home use Imola K Osapay Work Phone: Start: 10-19-2020 Assay of magnesium Ambe r Aciertrang Work Phone: Start: 10-19-2020 Basic metabolic pane l calcium total Delbert Diaz Work Phone: Start: 10-19-2020 Blood count complete auto&auto difrntl wbc Bren Garcia Work Phone: Start: 10-18-2020 Gluc bld gluc mntr d ev cleared fda spec home use Imola K Osapay Work Phone: Start: 10-18-2020 Gluc bld gluc mntr d ev cleared fda spec home use Imola K Osapay Work Phone: Start: 10-18-2020 Basic metabolic pane l calcium total Delbert Diaz Work Phone: Start: 10-18-2020 Gluc bld gluc mntr d ev cleared fda spec home use Imola K Osapay Work Phone: Start: 10-18-2020 Dup-scan xtr veins unilateral/limited study Delbert Diaz Work Phone: Start: 10-18-2020 Gluc bld gluc mntr d ev cleared fda spec home use Imola K Osapay Work Phone: Start: 10-18-2020 Gluc bld gluc mntr d ev cleared fda spec home use Imola K Osapay Work Phone: Start: 10-18-2020 Assay of magnesium Ambe r Acierno Work Phone: Start: 10-18-2020 Assay of phosphorus inorganic Dewey P Schmorteza Work Phone: Start: 10-18-2020 Basic metabolic pane l calcium total Bren Acierno Work Phone: Start: 10-18-2020 Blood count complete auto&auto difrntl wbc Bren [employer] Work Phone: Start: 10-18-2020 Calcium ionized Dewey P Apollo Work Phone: Start: 10-17-2020 Gluc bld gluc mntr d ev cleared fda spec home use Imola K Osapay Work Phone: Start: 10-17-2020 Gluc bld gluc mntr d ev cleared fda spec home use Imola K Osapay Work Phone: Start: 10-17-2020 Gluc bld gluc mntr d ev cleared fda spec home use Imola K Osapay Work Phone: Start: 10-17-2020 Basic metabolic pane l calcium total Bren Acierno Work Phone: Start: 10-17-2020 Gluc bld gluc mntr d ev cleared fda spec home use Ludwin Aly Work Phone: Start: 10-17-2020 Gluc bld gluc mntr d ev cleared fda spec home use Lourdes Manuel Work Phone: Start: 10-17-2020 Ecg routine ecg w/le ast 12 lds w/i&r Bren Acierno Work Phone: Start: 10-17-2020 Assay of blood/uric acid Evangelista Sue Work Phone: Start: 10-17-2020 Assay of ferritin Gareth Sue Work Phone: Start: 10-17-2020 Assay of folic acid serum Evangelista Sue Work Phone: Start: 10-17-2020 Assay of free thyroxine Evangelista Sue Work Phone: Start: 10-17-2020 Assay of haptoglobin quantitative Evangelista Sue Work Phone: Start: 10-17-2020 Assay of magnesium Nenae r Jose Work Phone: Start: 10-17-2020 Assay of phosphorus inorganic Dewey P Apollo Work Phone: Start: 10-17-2020 Assay of thyroid stimulating hormone tsh Evangelista Sue Work Phone: Start: 10-17-2020 Basic metabolic pane l calcium total Dewey P Schnick Work Phone: Start: 10-17-2020 Blood count complete auto&auto difrntl wbc Bren Jose Work Phone: Start: 10-17-2020 Calcium ionized Dewey P Schnick Work Phone: Start: 10-17-2020 Cyanocobalamin vitamin b-12 Evangelista Sue Work Phone: Start: 10-17-2020 Iron binding capacity A kalli Sue Work Phone: Start: 10-17-2020 Lactate dehydrogenase ldh Evangelista Sue Work Phone: Start: 10-17-2020 Gluc bld gluc mntr d ev cleared fda spec home use Ludwin PabloHeladio Sheeba Work Phone: Start: 10-17-2020 Basic metabolic pane l calcium total Dewey P Schnick Work Phone: Start: 10-16-2020 Gluc bld gluc mntr d ev cleared fda spec home use Ludwin Aly Work Phone: Start: 10-16-2020 Basic metabolic pane l calcium total Dewey P Schnick Work Phone: Start: 10-16-2020 Basic metabolic pane l calcium total Dewey P Schnick Work Phone: Start: 10-16-2020 Gluc bld gluc mntr d ev cleared fda spec home use Ludwin Aly Work Phone: Start: 10-16-2020 Basic metabolic pane l calcium total Dewey P Schnick Work Phone: Start: 10-16-2020 Gluc bld gluc mntr d ev cleared fda spec home use Lourdes Manuel Work Phone: Start: 10-16-2020 Assay of urine sodium T imothy P Schnick Work Phone: Start: 10-16-2020 Chloride urine Dewey P Schnick Work Phone: Start: 10-16-2020 Potassium urine Dewey P Schnick Work Phone: Start: 10-16-2020 Basic metabolic pane l calcium total Dewey P Schnick Work Phone: Start: 10-16-2020 Gluc bld gluc mntr d ev cleared fda spec home use Lourdes Manuel Work Phone: Start: 10-16-2020 Radex shoulder compl ete minimum 2 views Dewey P Schnick Work Phone: Start: 10-16-2020 Radiologic exam ches t single view Bren Acierno Work Phone: Start: 10-16-2020 Assay of lactate Timoth y P Schnick Work Phone: Start: 10-16-2020 Assay of magnesium Atif thy P Schnick Work Phone: Start: 10-16-2020 Assay of phosphorus inorganic Dewey P Schnick Work Phone: Start: 10-16-2020 Basic metabolic pane l calcium total Dewey P Schnick Work Phone: Start: 10-16-2020 Blood count complete auto&auto difrntl wbc Bren Acierno Work Phone: Start: 10-16-2020 Calcium ionized Dewey Bustillos Work Phone: Start: 10-16-2020 Hemoglobin glycosylated a1c Dewey Bustillos Work Phone: Start: 10-16-2020 Ketone bodies serum quantitative Dewey Bustillos Work Phone: Start: 10-16-2020 POCT ARTERIAL Ludwin Aly Work Phone: Start: 10-16-2020 ADD ON LAB TEST Dewey Bustillos Work Phone: Start: 10-16-2020 Ct abdomen & pelvis w/o contrast material Ludwin Aly Work Phone: Start: 10-16-2020 End: 10-16-2020 Gluc bld gluc mntr dev cleared fda spec home use Ludwin Aly Work Phone: Start: 10-16-2020 Culture bacterial quanttative colony count urine Dewey Bustillos Work Phone: Start: 10-16-2020 Urnls dip stick/tabl et rgnt auto w/o microscopy Dewey Bustillos Work Phone: Start: 10-16-2020 ADD ON LAB TEST Dewey Bustillos Work Phone: Start: 10-16-2020 Radiologic exam ches t single view Ludwin Aly Work Phone: Start: 10-16-2020 Gluc bld gluc mntr d ev cleared fda spec home use Ludwin Aly Work Phone: Start: 10-16-2020 Assay of magnesium Miri n Ledy Aly Work Phone: Start: 10-16-2020 Assay of troponin quantitative Ludwin Aly Work Phone: Start: 10-16-2020 Basic metabolic pane l calcium total Ludwin Aly Work Phone: Start: 10-16-2020 Hepatic function panel Ludwin Aly Work Phone: Start: 10-16-2020 Ecg routine ecg w/le ast 12 lds w/i&r Ludwin Aly Work Phone: Start: 04-08-2020 Echo tthrc r-t 2d w/wom-mode compl spec&colr d Kirby Dukes Work Phone: Start: 04-01-2020 Radiologic exam ches t 2 views Kirby Dukes Work Phone: Plan of Treatment Date Care Activity Detail Author Start: 10-13-2024 Medicare Annual Wellness (AWV) Medicare Annual Wellness (AWV) [facility] Start: 09-13-2024 Depression Screening Depression Screening [facility] Start: 08-16-2024 Creatinine measurement Creatinine Level [facility] Start: 08-16-2024 Potassium measurement Potassium Level [facility] Start: 01-21-2024 Creatinine measurement Creatinine Level [facility] Start: 01-21-2024 Potassium measurement Potassium Level [facility] Start: 12-14-2023 End: 12-14-2023 Patient encounter procedure 12/14/2023 1:30 PM EST Office Visit [facility] [address] [place] [address] Kirby Dukes, DO [address] [place] [address] [facility] Start: 12-06-2023 End: 12-06-2023 Patient encounter procedure 12/06/2023 2:15 PM EST Office Visit [facility] [address] [place] [address] Alysia Don, COURT REPORTER - MANAGER OF CORPORATE [address] [facility] [place] [address] [facility] Start: 11-22-2023 End: 11-22-2023 Patient encounter procedure 11/22/2023 2:15 PM EST Office Visit [facility] [address] [place] [address] Alysia Don, COURT REPORTER - MANAGER OF CORPORATE 1 [facility] [address] [place] [address] [facility] Start: 10-07-2023 End: 10-07-2023 Patient encounter procedure 10/07/2023 1:00 PM EST Appointment [facility] Non-Invasive Cardiology [address] [place] [address] Candy Torres MD [address] [place], [place] [id number] [facility] Card[facility] Start: 09-22-2023 Diabetic foot examination Diabetes: Foot Exam [facility] Start: 09-13-2023 End: 09-13-2023 Patient encounter procedure 09/13/2023 2:20 PM EST Office Visit [facility] [address] [place] [address] Lourdes Low PA-C [address] [place] [address] [facility] Start: 08-29-2023 End: 08-29-2023 Patient encounter procedure 08/29/2023 2:00 PM EST Office Visit [facility] [address] [place] [address] Candy Torres MD [address] [place], [place] [id number] [facility] Start: 08-29-2023 End: 08-29-2025 US Heart Transthoracic Transthoracic echocardiogram (TTE) complete with contrast, bubble, strain, and 3D PRN CV Echocardiography Routine Chronic systolic (congestive) heart failure (HCC) Expected: 08/29/2023 (Approximate), Expires: 08/29/2025 [facility] Work Phone: Immunizations Immunization Date Immunization Notes Care Provider Charles nicolealanna 07-19-2023 influenza, high dose seasonal, preservative-free Kirby Dukes DO Work Phone: [facility] 09-22-2022 influenza, high dose seasonal, preservative-free Kirby Dukes DO Work Phone: [facility] 09-22-2022 influenza virus vacc ine, unspecified formulation Kirby Dukes DO Work Phone: [facility] 03-11-2022 Covid-19, Pfizer Gra y Top, Do Not Dilute, (Age 12 Y+), Im, L Kirby Dukes DO Work Phone: [facility] 09-22-2021 Pfizer SARS-CoV-2 Vaccination Kirby CastellanosArcametrics Systems[employer] DO Work Phone: [facility] 07-30-2021 Influenza, FLUAD, (a ge 65 y+), Adjuvanted Kirby Dukes DO Work Phone: [facility] 12-23-2020 COVID-19, Pfizer, PF , 30mcg/0.3mL Kirby TaverasAntibe [employer]rapeuticssabrina DO Work Phone: [facility] 11-12-2020 COVID-19, Pfizer, PF , 30mcg/0.3mL Kirby Dukes DO [facility] Phone[facility] Work Phone: 07-21-2020 Influenza, FLUAD, (a ge 65 y+), Adjuvanted Kirby Castellanosa DO Work Phone: [facility] Work Phone: 07-21-2020 influenza, high dose seasonal, preservative-free Ludwin [facility] [place] 08-16-2019 Seasonal trivalent influenza vaccine, adjuvanted, preservative free Kirby Castellanosa DO Work Phone: [facility] Work Phone: 08-07-2018 Influenza Vaccine, unspecified formulation Kirby Dukes [facility] 08-07-2018 influenza, seasonal, injectable Kirby Dukes DO Work Phone: [facility] 08-07-2018 Seasonal trivalent influenza vaccine, adjuvanted, preservative free Kirby Dukes DO [facility] Phone[facility] Work Phone: 07-30-2017 Seasonal trivalent influenza vaccine, adjuvanted, preservative free Kirby Dukes DO [facility] Work Phone: 10-27-2015 pneumococcal conjuga te vaccine, 13 valent [facility] 09-14-2015 influenza, high dose seasonal, preservative-free Kirby Dukes DO [facility] Phone[facility] Work Phone: 09-14-2015 pneumococcal conjuga te vaccine, 13 valent Kirby Dukes DO Work Phone[facility] Work Phone: 08-27-2015 influenza virus vacc ine, unspecified formulation [facility] , [place] 08-27-2015 influenza virus vacc ine, whole virus Kirby Dukes DO Work Phone[facility] Work Phone: 08-19-2013 influenza virus vacc ine, unspecified formulation [facility] , [place] 06-22-2005 pneumococcal polysaccharide vaccine, 23 valent Kirby Ernst [facility] Payers Date Payer Category Payer Medicaid [id number] 2021 Medicaid MEDICAID - [facility] [place] [place] [id number] 2021-Present [address] [place] [address] Medicaid [id number] 2015 Stefan STONE RN [facility] [id number] 2015-Present [address] [place] [address] [id number] 2015 Medicare xxxxxxxxxxx [id number] 2001 Medicare [id number] 2001 Medicare MEDICARE MEDICAR E PART A AND B [id number] 2001-Present [address] [place] [address] Medicare [id number] Social History Date Type Detail Facility Start: 03-28-2020 End: 08-29-2023 Tobacco smoking status [facility] Former smoker [facility] Start: [birth year]-16-1957 End: 08-16-1994 History of tobacco use Current smoker [place] Start: 08-16-1957 End: 08-16-1994 History of tobacco use Cigarette [place] Start: 03-28-2020 End: 09-13-2023 Cigarettes smoked current (pack per day) - Reported [place] Start: 03-28-2020 End: 11-21-2023 Alcohol intake Current non-drinker of alcohol (finding) [place] Start: 03-28-2020 End: 05-05-2022 History SDOH Alcohol Frequency 1 [place] Start: 08-16-2019 End: 10-15-2020 History SDOH Social Connections Phone 2 [place] Start: 08-16-2019 History SDOH Social Connections Zoroastrian 3 [place] Start: 08-16-2019 History SDOH Physica l Activity DPW 0 [place] Start: 08-16-2019 End: 05-05-2022 History SDOH Financial 5 [place] Start: 1935 Sex [facility]igned At [facility] Exposure to SARS-CoV -2 (event) Unable to assess [facility] AYLA GALARZA Start: 12-02-2020 End: 08-29-2023 Tobacco use and exposure Never used [facility] Aguilera Start: 01-10-2023 End: 03-24-2023 Exposure to SARS-CoV-2 (event) Not sure [facility] AYLA GALARZA Start: 01-20-2023 End: 09-13-2023 Tobacco use panel [facility] Frequency of Alcohol Consumption Not on file [facility] Medical Equipment Procedure Code Equipment Code Equipment Origin al Text Equipment Identifier Dates by Other route 1 (one) time per week. Test once weekly E11.9 use Free Style Lite Test stripes. [id number] Start: 08-22-2023 Clinical Notes 10-21-2020 to 11-21-2023 Kirby Dukes, - 11/21/2023 12:30 PM ESTTelephone Encounter - Radha Baugh LPN - 11/17/2023 1:39 PM ESTTelephone Encounter - Radha Baugh AUTO DESIGN CHECKER - 11/17/2023 1:39 PM EST Note Date & Type Note Facility 11-21-2023 History of Present illness Narrative Images from the original note were not included. [facility] [address] [place] [address] [address] [facility] [address] Dept: [phone] Dept Loc: [phone] Patient was identified and seen today via Telehealth by agreement and consent. I used the following Telehealth technology: Audio and video capabilities. Patient location: Patient Location: Home. This patient encounter is appropriate and reasonable under the circumstances: too sick to leave home . The patient has been advised of the potential risks and limitations of this mode of treatment (including but not limited to the absence of in-person examination) and has agreed to be treated in a remote fashion in spite of them. Any and all of the patient's/patient's family's questions on this issue have been answered and I have made no promises or guarantees to the patient. The patient has also been advised to contact this office for worsening conditions or problems, and seek emergency medical treatment and/or call 911 if the patient deems either necessary. The patient stated that they are currently in the state [facility]. If the patient is a minor, permission has been obtained by the parent or guardian for the patient to receive medical care at this visit. Assessment/Plan Diagnoses and all orders for this visit: Pressure injury of skin of buttock, unspecified injury stage, unspecified laterality (Primary) Mild cognitive impairment Chronic systolic (congestive) heart failure (HCC) Type 2 diabetes mellitus with chronic kidney disease, without long-term current use of insulin, unspecified CKD stage (HCC) Debility Other orders - nystatin (Mycostatin) cream; Apply topically 2 times daily for 7 days. On the video patient was alert and a good color. She she was quiet and reserved that she always is. Had good color without pallor or cyanosis and has not send there is no edema. She was able to answer some questions with short answers. 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 Will reach out to [facility] for treatment of her sacral decubitus and overall health. No follow-ups on file. 3 months on diabetic care sooner as needed Subjective Halle Charlie Bette is a 88 y.o. who presents on the video for a remote visit. Chief complaint: No chief complaint on file. Painful buttock sore for months. HPI Elderly type II diabetic with decent control with history of COPD, CHF, cognitive loss and overall debility presents with her for a video conferencing. Recurrent bilateral buttock bedsore is not healing despite his care. Has tried Calmoseptine and antifungal's. 1 area was involved 4 months ago now involving both sides. About a quarter size is slightly painful. No obvious intense redness or induration or pus. is asking for more intensive aide assistance due to her overall debility of shortness of breath weakness and risk for dyspnea due to her heart failure and COPD. Mild cognitive loss is about the same. Glucose levels in the 1 50-200 range. Intermittent nausea and vomiting earlier in the month resolved. Had diarrhea also. Taking Pepto with good relief. She denies specific abdominal pain or dysphagia. No melena or mucus or blood. Takes omeprazole daily. History of gallstones but no right upper quadrant colicky pain. No recent antibiotic use. Difficulty getting around. Uses a walker and wheelchair. is very supportive but is presently not giving her the extra care she needs. Allergies Allergen Reactions Acetaminophen Anaphylaxis, Hives and Shortness of breath anaphylaxis Celecoxib ISA Phenacetin Anaphylaxis Propacetamol Anaphylaxis Amphetamine Other reaction(s): Unknown Amphetamines Other reaction(s): Unknown Aztreonam Other reaction(s): Unknown Xnotc-Ogixqikw-Aw Grass-Hydran Other reaction(s): Unknown Carbamazepine Other reaction(s): Unknown Carbapenems Tolerated cefdinir 09/2020 Codeine Hives Other reaction(s): Unknown Doxycycline Hives Epinephrine Other reaction(s): Unknown Latex Hives Other reaction(s): Unknown Morphine Other reaction(s): Unknown Nickel Other reaction(s): Unknown Penicillin G Benzathine Other reaction(s): Unknown Penicillins Tolerated cefdinir 09/2020 Pseudoephedrine Other reaction(s): Unknown Saccharin Other reaction(s): Unknown Shellfish-Derived Products Swelling Other reaction(s): Unknown Sulfa Antibiotics Other reaction(s): Unknown Other reaction(s): Unknown Sulfamethoxazole-Trimethoprim Hives Wound Dressings Rash [] PMH, allergies, and social history reviewed and updated as appropriate [] Medication list reviewed/updated [] Allergies reviewed/updated [] Problem list reviewed/updated [] Patient requests medication refills, see below for orders. Kirby Dukes DO 11/21/2023 12:49 PM documented in this encounter [facility] 11-17-2023 Telephone encounter Note was in today and set up with My Chart so he can do a Face to Face with doctor for patient. Appointment is being set up for patient. [facility] 11-17-2023 Miscellaneous Notes was in today and set up with My Chart so he can do a Face to Face with doctor for patient. Appointment is being set up for patient. Placed call to patient to discuss getting them set up to do a FaceTime appointment on his iphone so it will be a Face to Face appointment for patient to get approved for Home Care. Message left on voicemail to return call. Name of caller: Mica Contact phone number: [phone] Relationship to Patient: spouse/SO Provider: Dr Dukes Practice: [facility] Chief Complaint/Reason for Call: Caller stated he doesn't know how to work mychart and dosent have anyone available to help him. And he is unable to bring the patient in to office for the F2F. Please advise Best time of day caller can be reached: any Patient advised that office/PCP has 24-48 business hours to return their call: N/A Name of caller: Mica Contact phone number: [phone] Relationship to Patient: spouse/SO Provider: Practice: [facility] Chief Complaint/Reason for Call: Mica is requesting a call back in regards to questions about the face to face appointment. Please advise Best time of day caller can be reached: Any Patient advised that office/PCP has 24-48 business hours to return their call: Yes documented in this encounter [facility] 11-17-2023 Telephone encounter Note Placed call to patient to discuss getting them set up to do a FaceTime appointment on his iphone so it will be a Face to Face appointment for patient to get approved for Home Care. Message left on voicemail to return call. [facility] 11-16-2023 Telephone encounter Note Name of caller: Mica Contact phone number: [phone] Relationship to Patient: spouse/SO Provider: Dr Dukes Practice: [facility] Chief Complaint/Reason for Call: Caller stated he doesn't know how to work mychart and dosent have anyone available to help him. And he is unable to bring the patient in to office for the F2F. Please advise Best time of day caller can be reached: any Patient advised that office/PCP has 24-48 business hours to return their call: N/A [employer] 11-16-2023 Note Called patient and w as connected to , Radha has made several outreached on this issue. Left detailed message that patient has to be either seen face to face with Dr Dukes or scheduled for a VV and they Must have camera enabled this cannot be a telephone visit only. Please schedule patient accordingly if calling back [employer] [facility] 11-16-2023 History of Present illness Narrative Called patient and was connected to , Radha has made several outreached on this issue. Left detailed message that patient has to be either seen face to face with Dr Dukes or scheduled for a VV and they Must have camera enabled this cannot be a telephone visit only. Please schedule patient accordingly if calling back documented in this encounter [employer] 11-16-2023 Telephone encounter Note Name of caller: Mica Contact phone number: [phone] Relationship to Patient: spouse/SO Provider: Practice: [facility] Chief Complaint/Reason for Call: Mica is requesting a call back in regards to questions about the face to face appointment. Please advise Best time of day caller can be reached: Any Patient advised that office/PCP has 24-48 business hours to return their call: Yes [employer] 11-07-2023 Telephone encounter Note Rx loaded [facility] 11-07-2023 Miscellaneous Notes Rx loaded Ordering provider: Ernst Date of last office visit: 09/13/23 Date of next office visit: 12/14/23 Updated/Validated preferred pharmacy: Yes Patient instructed to contact the pharmacy prior to picking up the medication: Yes (1) Medication name: carvedilol Medication dosage: 3.125 mg (Miligrams Monthly quantity needed: 180 How many day supply requestin days Medication route: oral (PO) Medication administration time(s): 2 times a day (BID) If taking medication PRN, reason for taking medication: N/A If this is a controlled substance do you receive this or any other controlled medication from any other doctor or facility: No Date of last refill (see medication tab): 10/26/23 States new script is needed (2) Medication name: omeprazole Medication dosage: 40 mg (Miligrams Monthly quantity needed: 90 How many day supply requestin days Medication route: oral (PO) Medication administration time(s): daily If taking medication PRN, reason for taking medication: N/A If this is a controlled substance do you receive this or any other controlled medication from any other doctor or facility: No Date of last refill (see medication tab): 05/05/23 documented in this encounter [facility] 11-04-2023 Telephone encounter Note Ordering provider: Ernst Date of last office visit: 09/13/23 Date of next office visit: 12/14/23 Updated/Validated preferred pharmacy: Yes Patient instructed to contact the pharmacy prior to picking up the medication: Yes (1) Medication name: carvedilol Medication dosage: 3.125 mg (Miligrams Monthly quantity needed: 180 How many day supply requestin days Medication route: oral (PO) Medication administration time(s): 2 times a day (BID) If taking medication PRN, reason for taking medication: N/A If this is a controlled substance do you receive this or any other controlled medication from any other doctor or facility: No Date of last refill (see medication tab): 10/26/23 States new script is needed (2) Medication name: omeprazole Medication dosage: 40 mg (Miligrams Monthly quantity needed: 90 How many day supply requestin days Medication route: oral (PO) Medication administration time(s): daily If taking medication PRN, reason for taking medication: N/A If this is a controlled substance do you receive this or any other controlled medication from any other doctor or facility: No Date of last refill (see medication tab): 05/05/23 [facility] 11-01-2023 Note ----- Message from Judi Dukes DO sent at 11/01/2023 12:33 PM EST ----- Staff to post referral to [facility] medical group visiting nurse service for assessment and treatment of buttock decubitus, chronic debility due to COPD and CHF and mild cognitive loss. Today's virtual appointment should satisfy the [id number] evaluation. [facility] 11-01-2023 Telephone encounter Note Home Care nurse order pended to be signed. [facility] 11-01-2023 Miscellaneous Notes Home Care nurse order pended to be signed. documented in this encounter [facility] 10-26-2023 Telephone encounter Note Detailed message left on voicemail and can call back with any other questions. [facility] 10-26-2023 Miscellaneous Notes Detailed message left on voicemail and can call back with any other questions. Order pended to be signed for Home Care nurse. Name of caller: Mica Contact phone number: [phone] Relationship to Patient: spouse/SO Provider: Dr. Dukes [facility] Chief Complaint/Reason for Call: Mica called back, stated that the problems/ symptoms are that Pt has Open sores on bottom, also has large rash on groin area. Please advise Best time of day caller can be reached: ANY Patient advised that office/PCP has 24-48 business hours to return their call: Yes Placed call to patient to discuss questions of: For what symptoms or problems? Message left on voicemail to return call. Placed call to patient to discuss questions of: For what symptoms or problems? Message left on voicemail to return call. Name of caller: Mica Contact phone number: [phone] Relationship to Patient: spouse/SO Provider: Dr. Dukes Practice: [facility] Chief Complaint/Reason for Call: Mica calling in stating that he has requested a referral be placed for the pt to have a nurse come out to the home. Please Advise. Best time of day caller can be reached: ANY Patient advised that office/PCP has 24-48 business hours to return their call: No documented in this encounter [facility] 10-26-2023 Telephone encounter Note Order pended to be signed for Home Care nurse. [employer] 10-26-2023 Telephone encounter Note Name of caller: Mica Contact phone number: [phone] Relationship to Patient: spouse/SO Provider: Dr. Dukes Practice: [facility] Chief Complaint/Reason for Call: Mica called back, stated that the problems/ symptoms are that Pt has Open sores on bottom, also has large rash on groin area. Please advise Best time of day caller can be reached: ANY Patient advised that office/PCP has 24-48 business hours to return their call: Yes [facility] 10-25-2023 Telephone encounter Note Placed call to patient to discuss questions of: For what symptoms or problems? Message left on voicemail to return call. [facility] 10-24-2023 Telephone encounter Note Placed call to patient to discuss questions of: For what symptoms or problems? Message left on voicemail to return call. [facility] 10-21-2023 Telephone encounter Note Name of caller: Mica Contact phone number: [phone] Relationship to Patient: spouse/SO Provider: Dr. Dukes Practice: [facility] Chief Complaint/Reason for Call: Mica calling in stating that he has requested a referral be placed for the pt to have a nurse come out to the home. Please Advise. Best time of day caller can be reached: ANY Patient advised that office/PCP has 24-48 business hours to return their call: No [facility] [facility] [employer] 10-18-2023 Telephone encounter Note Left a detailed message on 's voicemail and can call us back with any other questions. Orders for Home Care nurse pended to be signed. [facility] 10-18-2023 Miscellaneous Notes Left a detailed message on 's voicemail and can call us back with any other questions. Orders for Home Care nurse pended to be signed. S: Patient spoke with [facility] nurse regarding groin rash and single buttocks open area. B: Onset of symptoms/concern 3 - 4 days for rash and ongoing single buttocks wound A: Patients states has a red itchy rash in the groin and lap fold area plus a single sore on buttocks that was closed and now reopened. No fever Home health and transportation assistance was removed September 15, 2023. Single buttocks wound was healed when they had a caregiver come to the home to bathe patient. Patient is weak and up with assist of two. He is the only one caring for her now. states he cannot put her in the car for an office visit. R: Patient declined office and VV visit. Requests office order home health caregiver. Patient advised to keep area clean and dry, check patient briefs at least every 3 hours, change and clean area when moist, apply antifungal cream or A and D ointment. Keep patient weight off of single buttock wound. Patient understands care advice. No further needs at this time. Patient instructed to call back with new or worsening symptoms. Reason for Disposition Jock Itch suspected (i.e., itchy rash on inner thighs near genital area) Female Protocols used: Rash or Redness - [id number]-ZH, Jock [id number]-BN documented in this encounter [facility] 10-18-2023 Telephone encounter Note S: Patient spoke with [facility] nurse regarding groin rash and single buttocks open area. B: Onset of symptoms/concern 3 - 4 days for rash and ongoing single buttocks wound A: Patients states has a red itchy rash in the groin and lap fold area plus a single sore on buttocks that was closed and now reopened. No fever Home health and transportation assistance was removed September 15, 2023. Single buttocks wound was healed when they had a caregiver come to the home to bathe patient. Patient is weak and up with assist of two. He is the only one caring for her now. states he cannot put her in the car for an office visit. R: Patient declined office and VV visit. Requests office order home health caregiver. Patient advised to keep area clean and dry, check patient briefs at least every 3 hours, change and clean area when moist, apply antifungal cream or A and D ointment. Keep patient weight off of single buttock wound. Patient understands care advice. No further needs at this time. Patient instructed to call back with new or worsening symptoms. Reason for Disposition Jock Itch suspected (i.e., itchy rash on inner thighs near genital area) Female Protocols used: Rash or Redness - [id number]-DPVFS-LF, Jock [id number] [facility] [employer] 09-26-2023 Telephone encounter Note Rx loaded [facility] [employer] 09-26-2023 Miscellaneous Notes Rx loaded Ordering provider: Dr. Dukes Date of last office visit: 09.13.23 Date of next office visit: 12.14.23 Updated/Validated preferred pharmacy: Yes Patient instructed to contact the pharmacy prior to picking up the medication: Yes (1) Medication name: furosemide (Lasix) 40 MG tablet Medication dosage: 40 mg (Miligrams Monthly quantity needed: 30 How many day supply requestin days Medication route: oral (PO) Medication administration time(s): daily If taking medication PRN, reason for taking medication: N/A If this is a controlled substance do you receive this or any other controlled medication from any other doctor or facility: No Date of last refill (see medication tab): 03.24.23 (2) Medication name: rosuvastatin (Crestor) 10 MG tablet Medication dosage: 10 mg (Miligrams Monthly quantity needed: 30 How many day supply requestin days Medication route: oral (PO) Medication administration time(s): bedtime (HS) If taking medication PRN, reason for taking medication: N/A If this is a controlled substance do you receive this or any other controlled medication from any other doctor or facility: No Date of last refill (see medication tab): 03.30.23 (3) Medication name: glimepiride (Amaryl) 1 MG tablet Medication dosage: 1 mg (Miligrams Monthly quantity needed: 30 How many day supply requestin days Medication route: oral (PO) Medication administration time(s): daily If taking medication PRN, reason for taking medication: N/A If this is a controlled substance do you receive this or any other controlled medication from any other doctor or facility: No Date of last refill (see medication tab): 05.05.23 documented in this encounter [facility] 09-26-2023 Telephone encounter Note Ordering provider: Dr. Dukes Date of last office visit: 09.13.23 Date of next office visit: 12.14.23 Updated/Validated preferred pharmacy: Yes Patient instructed to contact the pharmacy prior to picking up the medication: Yes (1) Medication name: furosemide (Lasix) 40 MG tablet Medication dosage: 40 mg (Miligrams Monthly quantity needed: 30 How many day supply requestin days Medication route: oral (PO) Medication administration time(s): daily If taking medication PRN, reason for taking medication: N/A If this is a controlled substance do you receive this or any other controlled medication from any other doctor or facility: No Date of last refill (see medication tab): 03.24.23 (2) Medication name: rosuvastatin (Crestor) 10 MG tablet Medication dosage: 10 mg (Miligrams Monthly quantity needed: 30 How many day supply requestin days Medication route: oral (PO) Medication administration time(s): bedtime (HS) If taking medication PRN, reason for taking medication: N/A If this is a controlled substance do you receive this or any other controlled medication from any other doctor or facility: No Date of last refill (see medication tab): 03.30.23 (3) Medication name: glimepiride (Amaryl) 1 MG tablet Medication dosage: 1 mg (Miligrams Monthly quantity needed: 30 How many day supply requestin days Medication route: oral (PO) Medication administration time(s): daily If taking medication PRN, reason for taking medication: N/A If this is a controlled substance do you receive this or any other controlled medication from any other doctor or facility: No Date of last refill (see medication tab): 05.05.23 [facility] 08-29-2023 History of Present illness Narrative [facility] [address] [facility] [address] Dept: [phone] Dept Visit type: Established : 1935 Chief Complaint: Chief Complaint Patient presents with Follow-up Congestive Heart Failure History of Present Illness: Halle Patel is a 87 y.o. female with a history of HFrEF (EF 35% per 03/2020 echo) ,hx of DVT and PE post-op 2010, hypertension, COPD, and diabetes. Patient was previously known to Dr Epps; last seen by Dr Epps 01/11/2022. She saw SCOTTIE Rain on 07/26/23 as her had an appointment and she presents today to establish care. She denies chest pain,sob,orthopnea or pnd. No syncope or presyncope. Past Medical History: Past Medical History: Diagnosis Date Allergic rhinitis Asthma Cholelithiases 2019 asx Colon cancer screening 06/2019 neg Cologuard COPD (chronic obstructive pulmonary disease) (HCC) 2011 Mild per PFTs- exsmoker since 1993 COVID-19 07/02/2023 Paxlovid rx DDD (degenerative disc disease), cervical Diastolic heart failure (HCC) 03/2020 EF 35 %- Supriya consult DVT (deep venous thrombosis) ([facility]) 06/2011 and PE post op oophorectomy Eczema Ex-smoker 1993 Gallstones 2010 asymptomatic H/O colonoscopy with polypectomy 2013 Dr. 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 PAH (pulmonary artery hypertension) (HCC) 03/2020 Renal cyst Type 2 diabetes mellitus (HCC) 2010 diet controlled till 2014, DR TREJO Past Surgical History Past Surgical History: Procedure Laterality Date APPENDECTOMY BREAST SURGERY Left 1979 breast bx BUNIONECTOMY Bilateral 1993 [place] CATARACT EXTRACTION W/ INTRAOCULAR LENS IMPLANT, BILATERAL [address] Connor -Small Polyp EXPLORATORY LAPAROTOMY 2010 Mass removal -Serous lesin vs adeno ca?? Post op DVT & PE EXPLORATORY LAPAROTOMY 2011 Abdominal Scar & Ventral Hernia Repair Dr. Norris TONSILLECTOMY (HISTORICAL) TOTAL ABDOMINAL HYSTERECTOMY 1986 Family History Family History Problem Relation Name Age of Onset Lung cancer Brother Sunil Baez age 79 mets to Brain from Lung, in 2018 Heart disease Brother Sunil Baez 65.00 CABG and defib /pacer High Blood Pressure Mother High Blood Pressure Sister Diabetes Brother Sunil Baez oral rx Lung cancer Mother age 79 Other (252[address]) Father TB at age 53 Social History Social History Tobacco Use Smoking status: Former Packs/day: 1 Types: Cigarettes Start date: 08/16/1958 Quit date: 08/16/1994 Years since quittin.0 Smokeless tobacco: Never Substance Use Topics Alcohol use: No Alcohol/week: 0.0 standard drinks of alcohol Drug use: Never Allergies: Allergies Allergen Reactions Acetaminophen Anaphylaxis, Hives and Shortness of breath anaphylaxis Celecoxib ISA Phenacetin Anaphylaxis Propacetamol Anaphylaxis Amphetamine Other reaction(s): Unknown Amphetamines Other reaction(s): Unknown Aztreonam Other reaction(s): Unknown Fecji-Vcpfrppw-Xs Grass-Hydran Other reaction(s): Unknown Carbamazepine Other reaction(s): Unknown Carbapenems Tolerated cefdinir 09/2020 Codeine Hives Other reaction(s): Unknown Doxycycline Hives Epinephrine Other reaction(s): Unknown Latex Hives Other reaction(s): Unknown Morphine Other reaction(s): Unknown Nickel Other reaction(s): Unknown Penicillin G Benzathine Other reaction(s): Unknown Penicillins Tolerated cefdinir 09/2020 Pseudoephedrine Other reaction(s): Unknown Saccharin Other reaction(s): Unknown Shellfish-Derived Products Swelling Other reaction(s): Unknown Sulfa Antibiotics Other reaction(s): Unknown Other reaction(s): Unknown Sulfamethoxazole-Trimethoprim Hives Wound Dressings Rash Medications: Current Outpatient Medications: albuterol 108 (90 Base) MCG/ACT inhaler, Inhale 2 puffs every 6 hours as needed for shortness of breath for up to 30 doses., Disp: 18 g, Rfl: 11 Ascorbic Acid (vitamin C) 1000 MG tablet, Take 1 tablet (1,000 mg) by mouth daily., Disp: 30 tablet, Rfl: 11 aspirin 81 MG EC tablet, Take 1 tablet by mouth every morning., Disp: , Rfl: carvedilol (Coreg) 3.125 MG tablet, Take 1 tablet (3.125 mg) by mouth in the morning and 1 tablet (3.125 mg) in the evening. Take with meals., Disp: 180 tablet, Rfl: 1 cholecalciferol (Vitamin D-3) 10 MCG (400 UNIT) capsule, 1 capsule Every 24 hours., Disp: , Rfl: Cranberry 1000 MG capsule, Take by mouth daily., Disp: , Rfl: enalapril (Vasotec) 20 MG tablet, Take 1 tablet (20 mg) by mouth 2 times daily., Disp: 180 tablet, Rfl: 1 Fluticasone-Salmeterol (Advair Diskus) 500-50 MCG/ACT aerosol powder , INHALE 1 PUFF INTO THE LUNGS IN THE MORNING AND 1 PUFF IN THE EVENING, Disp: 1 each, Rfl: 11 furosemide (Lasix) 40 MG tablet, Take 1 tablet (40 mg) by mouth daily., Disp: 90 tablet, Rfl: 1 glimepiride (Amaryl) 1 MG tablet, Take 1 tablet (1 mg) by mouth every morning (before breakfast)., Disp: 90 tablet, Rfl: 1 glucose blood test strip, by Other route 1 (one) time per week. Test once weekly E11.9 use Free Style Lite Test stripes., Disp: 100 strip, Rfl: 3 hydrALAZINE (Apresoline) 25 MG tablet, Take 1 tablet (25 mg) by mouth 3 times daily. (Patient taking differently: Take 25 mg by mouth in the morning and 25 mg in the evening.), Disp: 270 tablet, Rfl: 1 ipratropium-albuterol (Duo-Neb) 0.5-2.5 mg/3 mL nebulizer solution, Use unit dose 4 times daily routine, Disp: 360 mL, Rfl: 11 Nebulizers [facility] [place], Dispense 1 machine with appropriate tubing mask. Use 4 times daily with DuoNeb aerosol mixture, Disp: 1 Device, Rfl: 1 omeprazole (PriLOSEC) [address] capsule, Take 1 capsule (40 mg) by mouth every morning (before breakfast)., Disp: 90 capsule, Rfl: 1 polyethylene glycol, PEG, 3350 (Glycolax) 17 GM/SCOOP powder, Take 17 g by mouth Daily as needed., Disp: , Rfl: rosuvastatin (Crestor) 10 MG tablet, Take 1 tablet (10 mg) by mouth Nightly., Disp: 90 tablet, Rfl: 1 Review of Systems: Review of Systems Constitutional: Negative for activity change, chills, diaphoresis, fatigue and fever. HENT: Negative for nosebleeds and trouble swallowing. Eyes: Negative for discharge and visual disturbance. Respiratory: Negative for apnea, cough, chest tightness, shortness of breath and wheezing. Cardiovascular: Negative for chest pain, palpitations and leg swelling. Gastrointestinal: Negative for abdominal distention, abdominal pain, blood in stool, diarrhea, nausea and vomiting. Endocrine: Negative for cold intolerance and heat intolerance. Genitourinary: Negative for hematuria. Musculoskeletal: Negative for gait problem and myalgias. Skin: Negative for color change and rash. Neurological: Negative for dizziness, seizures, syncope, facial asymmetry, speech difficulty, weakness, light-headedness, numbness and headaches. Hematological: Does not bruise/bleed easily. Psychiatric/Behavioral: Negative for dysphoric mood. Physical Examination: Vitals: Vitals: 08/29/23 1339 BP: (!) 140/70 BP Location: Right arm Patient Position: Sitting BP Cuff Size: Adult Pulse: 57 SpO2: 93% Weight: 185 lb (83.9 kg) Height: 5' (1.524 m) Body mass index is 36.13 kg/m . Physical Exam Constitutional: Appearance: Normal appearance. HENT: Head: Normocephalic. Mouth/Throat: Pharynx: No oropharyngeal exudate. Eyes: General: No scleral icterus. Right eye: No discharge. Left eye: No discharge. Cardiovascular: Rate and Rhythm: Normal rate and regular rhythm. Heart sounds: No murmur heard. No gallop. Pulmonary: Effort: No respiratory distress. Abdominal: General: There is no distension. Tenderness: There is no abdominal tenderness. Musculoskeletal: General: Normal range of motion. Cervical back: Normal range of motion. Right lower leg: No edema. Left lower leg: No edema. Skin: General: Skin is warm and dry. Neurological: Mental Status: She is alert and oriented to person, place, and time. Laboratory Tests: Lab Results Component Value Date WBC 9.3 08/16/2023 HGB 12.5 08/16/2023 HCT 37.8 08/16/2023 MCV 89.4 08/16/2023 PLT 344 08/16/2023 Lab Results Component Value Date GLUCOSE 267 (H) 08/16/2023 CALCIUM 9.4 08/16/2023 NA 136 05/27/2022 K 3.3 (L) 05/27/2022 CO2 33 (H) 08/16/2023 CL 98 05/27/2022 BUN 18 08/16/2023 CREATININE 0.95 08/16/2023 @LASTCMP@ Lab Results Component Value Date CHOL 214 (A) 09/16/2021 Lab Results Component Value Date TRIG 208 (A) 09/16/2021 Lab Results Component Value Date HDL 46 09/16/2021 No results found for: LDLCALC NT PRO BNP Date Value Ref Range Status 05/27/2022 517 (H) 0 - 450 pg/mL Final Cardiac Tests: Last Echo 04/08/2020: SUMMARY: 1. Procedure narrative: Image quality was suboptimal. The study was technically limited due to body habitus and respiratory interference. Intravenous imaging enhancement (Definity) was administered to opacify the chamber and enhance Doppler signals. 2. Left ventricle: Systolic function is moderately decreased by visual assessment. The estimated ejection fraction is 35%. There are no regional wall motion abnormalities. Features are consistent with a pseudonormal left ventricular filling pattern, with concomitant abnormal relaxation and increased filling pressure (grade 2 diastolic dysfunction). 3. Right ventricle: The RV pressure during systole by Doppler is 53 mm Hg. 4. Left atrium: The atrium is mildly dilated. 5. Right atrium: Central venous pressure (est): 8 mm Hg. 6. Signs of increased volume and pulmonary hypertension and elevated left sided filling pressures. Assessment and Plan: HFrEF EF 35% per Echo 03/2020 [facility] class II She is currently on carvedilol, enalapril, hydralazine and lasix She is euvolemic. Of note, she has 24 allergies to various medications and hence I am hesitant to really add any medications now as she is feeling well. I will repeat an echo to see what her LVEF is now since last echo Is from 2019. If still remains low then we could consider addition of aldactone . Hypertension Controlled; mostly ok at home. Continue with current medication regimen RTC in 3 months documented in this encounter [facility] 08-24-2023 Telephone encounter Note Rx loaded Next ov 09/13/23 [facility] 08-24-2023 Miscellaneous Notes Rx loaded Next ov 09/13/23 documented in this encounter [facility] 08-09-2023 Telephone encounter Note Spoke with Amara from [facility]. All documentation has been received. No other information needed. [facility] 08-09-2023 Miscellaneous Notes Spoke with Amara from [facility]. All documentation has been received. No other information needed. Please assist. Pt had face to face on 07/19/23 Noted. Message released to patient as written. yes Patient's further questions if applicable: none Were all questions from office addressed or relayed to the patient from encounter: Yes- Mica called back and stated the appt 07/19 230 will work out with transportation for pt. Please advise Called patient and left a detailed message for them to return my call to get patient an appointment made sooner than her 07/28/23 for knee evaluation. Name of caller: Amara Contact phone number: [phone] Relationship to Patient: [facility] Provider: Dr. Dukes Practice: [facility] Chief Complaint/Reason for Call: Amara from [facility] called to inform the provider that the patient will need a face to face visit for documentation of the patient's knee for homecare. Amara stated that the patient has not been seen since 03/24/2023. Amara stated she will inform the . Please advise. Best time of day caller can be reached: Any Patient advised that office/PCP has 24-48 business hours to return their call: Yes documented in this encounter [facility] 08-08-2023 Telephone encounter Note Last OV:07/19/23 Scheduled:n/a [facility] 08-08-2023 Miscellaneous Notes Last OV:07/19/23 Scheduled:n/a Name of caller: Lilo Contact phone number: [phone] Relationship to Patient: Home health Provider: Dr Dukes Practice: [facility] Chief Complaint/Reason for Call: Caller requested the following be noted for provider -- [facility]. PT evaluate and treat. Mepilex and dressing to sacral area. Need wound care orders. Best time of day caller can be reached: AM Patient advised that office/PCP has 24-48 business hours to return their call: No documented in this encounter [facility] 08-05-2023 Telephone encounter Note Name of caller: Lilo Contact phone number: [phone] Relationship to Patient: Home health Provider: Dr Dukes Practice: [facility] Chief Complaint/Reason for Call: Caller requested the following be noted for provider -- [facility]. PT evaluate and treat. Mepilex and dressing to sacral area. Need wound care orders. Best time of day caller can be reached: AM Patient advised that office/PCP has 24-48 business hours to return their call: No [facility] 08-05-2023 Telephone encounter Note Orders pended for doctor signature [facility] 08-05-2023 Miscellaneous Notes Orders pended for doctor signature Please add to Home care per [facility] nurse: the orders do not have disciplines listed can you ask the Dr to add Nurse and PT and a diagnosis of COPD, CHF per his note has documented, please call Amara [phone] with any questions Please cancel yesterday's Home Health order and sign the new pended order. Thank you. documented in this encounter [facility] 08-04-2023 Telephone encounter Note Please add to Home care per [facility] nurse: the orders do not have disciplines listed can you ask the Dr to add Nurse and PT and a diagnosis of COPD, CHF per his note has documented, please call Amara [phone] with any questions Please cancel yesterday's Home Health order and sign the new pended order. Thank you. [facility] 08-03-2023 Telephone encounter Note Talked to [facility] nurse and she stated that is asking for patient to get an order for Home Healthcare. Please advise. Orders pending for signature. [facility] 08-03-2023 Miscellaneous Notes Talked to [facility] nurse and she stated that is asking for patient to get an order for Home Healthcare. Please advise. Orders pending for signature. documented in this encounter [facility] 07-28-2023 Telephone encounter Note Please assist. Pt had face to face on 07/19/23 [facility] 07-28-2023 Miscellaneous Notes Please assist. Pt had face to face on 07/19/23 Noted. Message released to patient as written. yes Patient's further questions if applicable: none Were all questions from office addressed or relayed to the patient from encounter: Yes- Mica called back and stated the appt 07/19 230 will work out with transportation for pt. Please advise Called patient and left a detailed message for them to return my call to get patient an appointment made sooner than her 07/28/23 for knee evaluation. Name of caller: Amara Contact phone number: [phone] Relationship to Patient: [facility] Provider: Dr. Dukes Practice: [facility] Chief Complaint/Reason for Call: Amara from [facility] called to inform the provider that the patient will need a face to face visit for documentation of the patient's knee for homecare. Amara stated that the patient has not been seen since 03/24/2023. Amara stated she will inform the . Please advise. Best time of day caller can be reached: Any Patient advised that office/PCP has 24-48 business hours to return their call: Yes documented in this encounter [facility] 07-26-2023 History of Present illness Narrative [facility] Note DATE of SERVICE:07/26/23 TIME of SERVICE: 10:19 AM Chief Complaint: Chief Complaint Patient presents with Follow-up History of PresentIllness: Halle Patel is a 87 y.o. female with a history of heart failure reduced ejection fraction ,hypertension, COPD, and diabetes. She has not been seen in the office since January 2021. She came in today with her who was recently admitted to the hospital. We saw her as well. Overall she seems stable. She is in a wheelchair here, and states she spends most of her time in a recliner at home. She sleeps in the recliner for comfort. She denies orthopnea or PND. She denies chest pain or shortness of breath. She has a health aide that comes to help with her care for 4 hours daily. Past Medical History: Past Medical History: Diagnosis Date Allergic rhinitis Asthma Cholelithiases 2019 asx Colon cancer screening 06/2019 neg Cologuard COPD (chronic obstructive pulmonary disease) ([facility]) 2011 Mild per PFTs- exsmoker since 1993 COVID-19 07/02/2023 Paxlovid rx DDD (degenerative disc disease), cervical Diastolic heart failure (HCC) 03/2020 EF 35 %- Supriya consult DVT (deep venous thrombosis) ([facility]) 06/2011 and PE post op oophorectomy Eczema Ex-smoker 1993 Gallstones 2010 asymptomatic H/O colonoscopy with polypectomy 2013 Dr. 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 PAH (pulmonary artery hypertension) ([facility]) 03/2020 Renal cyst Type 2 diabetes mellitus ([facility]) 2010 diet controlled till 2014, DR TREJO Past Surgical History Past Surgical History: Procedure Laterality Date APPENDECTOMY BREAST SURGERY Left 1979 breast bx BUNIONECTOMY Bilateral 1993 [facility] CATARACT EXTRACTION W/ INTRAOCULAR LENS IMPLANT, BILATERAL [address] Connor -Small Polyp EXPLORATORY LAPAROTOMY 2010 Mass removal -Serous lesin vs adeno ca?? Post op DVT & PE EXPLORATORY LAPAROTOMY 2011 Abdominal Scar & Ventral Hernia Repair Dr. Norris TONSILLECTOMY (HISTORICAL) TOTAL ABDOMINAL HYSTERECTOMY 1986 Family History Family History Problem Relation Name Age of Onset Lung cancer Brother Sunil Baez age 79 mets to Brain from Lung, in 2018 Heart disease Brother Sunil Baez 65.00 CABG and defib /pacer High Blood Pressure Mother High Blood Pressure Sister Diabetes Brother Sunil Baez oral rx Lung cancer Mother age 79 Other (98[address]) Father TB at age 53 Social History Social History Tobacco Use Smoking status: Former Packs/day: 1 Types: Cigarettes Start date: 08/16/1958 Quit date: 08/16/1994 Years since quittin.9 Smokeless tobacco: Never Substance Use Topics Alcohol use: No Alcohol/week: 0.0 standard drinks of alcohol Drug use: Never Allergies: Allergies Allergen Reactions Acetaminophen Hives, Shortness of breath and Anaphylaxis Other reaction(s): Unknown Other reaction(s): anaphylaxis Other reaction(s): anaphylaxis Other reaction(s): Unknown Celecoxib Other reaction(s): Other (See Comments), Other: See Comments, Unknown ISA ISA Other reaction(s): Other (See Comments), Other (See Comments) Other reaction(s): Unknown Phenacetin Anaphylaxis Propacetamol Anaphylaxis Amphetamine Other reaction(s): Unknown Amphetamines Other reaction(s): Unknown Aztreonam Other reaction(s): Unknown Other reaction(s): Unknown Other reaction(s): Unknown Other reaction(s): Unknown Tqqmn-Ygxgojme-Ji Grass-Hydran Other reaction(s): Unknown Carbamazepine Other reaction(s): Unknown Other reaction(s): Unknown Carbapenems Other reaction(s): Unknown Tolerated cefdinir 09/2020 Tolerated cefdinir 09/2020 Codeine Hives Other reaction(s): Unknown Other reaction(s): Unknown Other reaction(s): Unknown Other reaction(s): Unknown Doxycycline Hives Epinephrine Other reaction(s): Unknown Other reaction(s): Unknown Latex Hives Other reaction(s): Unknown Other reaction(s): Unknown Morphine Other reaction(s): Unknown Other reaction(s): Unknown Nickel Other reaction(s): Unknown Other reaction(s): Unknown Penicillin G Benzathine Other reaction(s): Unknown Penicillins Other reaction(s): Unknown Tolerated cefdinir 09/2020 Tolerated cefdinir 09/2020 Pseudoephedrine Other reaction(s): Unknown Saccharin Other reaction(s): Unknown Shellfish-Derived Products Swelling Other reaction(s): Unknown Sulfa Antibiotics Other reaction(s): Unknown Other reaction(s): Unknown Sulfamethoxazole-Trimethoprim Hives Wound Dressings Rash Medications: Current Outpatient Medications: albuterol 108 (90 Base) MCG/ACT inhaler, Inhale 2 puffs every 6 hours as needed for shortness of breath for up to 30 doses., Disp: 18 g, Rfl: 11 Ascorbic Acid (vitamin C) 1000 MG tablet, Take 1 tablet (1,000 mg) by mouth daily., Disp: 30 tablet, Rfl: 11 aspirin 81 MG EC tablet, Take 1 tablet by mouth every morning., Disp: , Rfl: carvedilol (Coreg) 3.125 MG tablet, Take 1 tablet (3.125 mg) by mouth in the morning and 1 tablet (3.125 mg) in the evening. Take with meals., Disp: 180 tablet, Rfl: 1 cholecalciferol (Vitamin D-3) 10 MCG (400 UNIT) capsule, 1 capsule Every 24 hours., Disp: , Rfl: enalapril (Vasotec) 20 MG tablet, Take 1 tablet (20 mg) by mouth 2 times daily., Disp: 180 tablet, Rfl: 1 Fluticasone-Salmeterol (Advair Diskus) 500-50 MCG/ACT aerosol powder , INHALE 1 PUFF INTO THE LUNGS IN THE MORNING AND 1 PUFF IN THE EVENING, Disp: 1 each, Rfl: 11 furosemide (Lasix) 40 MG tablet, Take 1 tablet (40 mg) by mouth daily., Disp: 90 tablet, Rfl: 1 glimepiride (Amaryl) 1 MG tablet, Take 1 tablet (1 mg) by mouth every morning (before breakfast)., Disp: 90 tablet, Rfl: 1 hydrALAZINE (Apresoline) 25 MG tablet, Take 1 tablet (25 mg) by mouth in the morning and 1 tablet (25 mg) at noon and 1 tablet (25 mg) before bedtime., Disp: 270 tablet, Rfl: 1 ipratropium-albuterol (Duo-Neb) 0.5-2.5 mg/3 mL nebulizer solution, Use unit dose 4 times daily routine, Disp: 360 mL, Rfl: 11 Nebulizers [facility] [place], Dispense 1 machine with appropriate tubing mask. Use 4 times daily with DuoNeb aerosol mixture, Disp: 1 Device, Rfl: 1 omeprazole (PriLOSEC) [address] capsule, Take 1 capsule (40 mg) by mouth every morning (before breakfast)., Disp: 90 capsule, Rfl: 1 polyethylene glycol, PEG, 3350 (Glycolax) 17 GM/SCOOP powder, Take 17 g by mouth daily., Disp: , Rfl: rosuvastatin (Crestor) 10 MG tablet, Take 1 tablet (10 mg) by mouth Nightly., Disp: 90 tablet, Rfl: 1 Review of Systems: Review of Systems Constitutional: Negative for chills, diaphoresis and fever. HENT: Negative for congestion. Eyes: Negative for visual disturbance. Respiratory: Negative for chest tightness and shortness of breath. Cardiovascular: Negative for chest pain and palpitations. Gastrointestinal: Negative for abdominal pain, constipation, diarrhea and nausea. Endocrine: Negative for cold intolerance and heat intolerance. Genitourinary: Negative for dysuria and hematuria. Musculoskeletal: Negative for arthralgias. Skin: Negative for rash. Neurological: Negative for dizziness and syncope. Physical Examination: Vitals: Vitals: 07/26/23 1006 BP: 102/64 BP Location: Left arm Patient Position: Sitting BP Cuff Size: Large adult Pulse: 64 Resp: 16 SpO2: 93% Weight: 183 lb 6.4 oz (83.2 kg) Height: 5' 1 (1.549 m) Body mass index is 34.65 kg/m . Physical Exam Constitutional: General: She is not in acute distress. Appearance: She is not diaphoretic. Comments: In wheelchair HENT: Head: Normocephalic. Eyes: General: Right eye: No discharge. Left eye: No discharge. Conjunctiva/sclera: Conjunctivae normal. Cardiovascular: Rate and Rhythm: Normal rate and regular rhythm. Pulmonary: Breath sounds: No wheezing or rales. Abdominal: General: Bowel sounds are normal. Palpations: Abdomen is soft. Musculoskeletal: Right lower leg: Edema present. Left lower leg: Edema present. Comments: Trace edema Skin: General: Skin is warm and dry. Findings: No erythema or rash. Neurological: Mental Status: She is oriented to person, place, and time. Psychiatric: Mood and Affect: Mood normal. Laboratory Tests: Lab Results Component Value Date WBC 9.0 01/20/2023 HGB 12.2 01/20/2023 HCT 36.2 01/20/2023 MCV 86.4 01/20/2023 PLT 325 01/20/2023 Lab Results Component Value Date GLUCOSE 216 (H) 01/20/2023 CALCIUM 9.4 01/20/2023 NA 136 05/27/2022 K 3.3 (L) 05/27/2022 CO2 31 01/20/2023 CL 98 05/27/2022 BUN 21 01/20/2023 CREATININE 1.10 (H) 01/20/2023 @LASTCMP@ Lab Results Component Value Date CHOL 214 (A) 09/16/2021 Lab Results Component Value Date TRIG 208 (A) 09/16/2021 Lab Results Component Value Date HDL 46 09/16/2021 No results found for: LDLCALC , LDLDIRECT No components found for: LVEF , LVEFMODE Assessment and Plan: Heart failure with reduced ejection fraction. Last echocardiogram was March 2020 noting an EF of 35%. She has been lost to care since January 2021. She has an appointment to establish with Dr. Torres on August 29. She presently appears euvolemic. She continues on carvedilol, enalapril, Lasix, and hydralazine. She has orders for a BMP through Dr. Dukes's office. Hypertension. Blood pressure is well controlled. At this time she will continue carvedilol, enalapril, and hydralazine. Again she has an order for BMP to be completed. Hyperlipidemia. She remains on Crestor therapy. This is monitored closely by Dr. Dukes's office. documented in this encounter [facility] 07-19-2023 History of Present illness Narrative Images from the original note were not included. [facility] [address] [place] [address] [address] [facility] [id number] Visit type: Established Patient Reason for Visit: face to face Assessment / Plan: Halle was seen today for face to face. Diagnoses and all orders for this visit: Pressure injury of skin of sacral region, unspecified injury stage (Primary) Comments: Recurrent but mild blanching. No open sores. Will benefit from home nursing and educin getting this patient turned to her sides, education for her and Type 2 diabetes mellitus without complication, without long-term current use of insulin ([facility]) ([facility]) Comments: Stable, continue glimepiride, urged to check her glucose once weekly Orders: - CBC auto differential; Future - Comprehensive metabolic panel; Future - Hemoglobin A1c; Future - CBC auto differential - Comprehensive metabolic panel - Hemoglobin A1c Chronic systolic (congestive) heart failure ([facility]) Comments: Stable, continue hydralazine, Lasix, Vasotec and carvedilol Pulmonary emphysema, unspecified emphysema type ([facility]) Comments: Stable, continue present meds including Advair, DuoNeb aerosols Hypercholesterolemia Comments: Stable, encouraged Crestor and low-fat meals Morbidly obese ([facility]) Comments: Urged to do range of motion exercises to prevent further decline in her overall health MCI (mild cognitive impairment) with memory loss Comments: Stable, continue all current meds Other orders - Ascorbic Acid (vitamin C) 1000 MG tablet; Take 1 tablet (1,000 mg) by mouth daily. - Flu vaccine, high dose seasonal, preservative free 35 minutes reviewing chart, patient exam and interview and discussion of diagnosis and treatment options with and patient. We will reach out to [facility] and hopefully they can get him some support. They have some financial restrictions but he is adamant about not putting her in a shelter. Subjective: Patient ID: Halle Patel is a 87 y.o. female. HPI obese ex-smoker with history of COPD, congestive heart failure, mild cognitive loss and well-controlled diabetes presents with her is concerned about ongoing pressure on her buttocks and sacrum. Intermittently there has been an open sore but that is presently closed. It always seems blue and pink. He would like that assessed and have home nursing into his home to help prevent overall decline of that area. Of note patient was COVID-positive and took Paxlovid therapy beginning August 01 but she improved quickly. Minimal cough and no green fever. No substantial shortness of breath or mental decline or diarrhea. Patient is very elderly obese and has stiff legs. Barely walks around the house. He is trying to do his best at home for her overall care. Rare fecal incontinence but some urinary incontinence. She wears adult diapers. Of note he is not checking glucose levels but her A1c has been stable and her weight is stable. Nutritionally she does pretty well. Review of Systems history of mild memory loss but overall has done fairly well she just gets stiff and aching does not want to move a lot. There is been no recurrent cough since her COVID. No vomiting or diarrhea. No abdominal pain. Her hip and back and knees are stiff. No NSAID use. No hallucinations or combativeness. Allergies Allergen Reactions Acetaminophen Hives, Shortness of breath and Anaphylaxis Other reaction(s): Unknown Other reaction(s): anaphylaxis Other reaction(s): anaphylaxis Other reaction(s): Unknown Celecoxib Other reaction(s): Other (See Comments), Other: See Comments, Unknown ISA ISA Other reaction(s): Other (See Comments), Other (See Comments) Other reaction(s): Unknown Phenacetin Anaphylaxis Propacetamol Anaphylaxis Amphetamine Other reaction(s): Unknown Amphetamines Other reaction(s): Unknown Aztreonam Other reaction(s): Unknown Other reaction(s): Unknown Other reaction(s): Unknown Other reaction(s): Unknown Qshja-Vfgamiqt-Co Grass-Hydran Other reaction(s): Unknown Carbamazepine Other reaction(s): Unknown Other reaction(s): Unknown Carbapenems Other reaction(s): Unknown Tolerated cefdinir 09/2020 Tolerated cefdinir 09/2020 Codeine Hives Other reaction(s): Unknown Other reaction(s): Unknown Other reaction(s): Unknown Other reaction(s): Unknown Doxycycline Hives Epinephrine Other reaction(s): Unknown Other reaction(s): Unknown Latex Hives Other reaction(s): Unknown Other reaction(s): Unknown Morphine Other reaction(s): Unknown Other reaction(s): Unknown Nickel Other reaction(s): Unknown Other reaction(s): Unknown Penicillin G Benzathine Other reaction(s): Unknown Penicillins Other reaction(s): Unknown Tolerated cefdinir 09/2020 Tolerated cefdinir 09/2020 Pseudoephedrine Other reaction(s): Unknown Saccharin Other reaction(s): Unknown Shellfish-Derived Products Swelling Other reaction(s): Unknown Sulfa Antibiotics Other reaction(s): Unknown Other reaction(s): Unknown Sulfamethoxazole-Trimethoprim Hives Wound Dressings Rash Current Outpatient Medications on File Prior to Visit Medication Sig Dispense Refill albuterol 108 (90 Base) MCG/ACT inhaler Inhale 2 puffs every 6 hours as needed for shortness of breath for up to 30 doses. 18 g 11 aspirin 81 MG EC tablet Take 1 tablet by mouth every morning. carvedilol (Coreg) 3.125 MG tablet Take 1 tablet (3.125 mg) by mouth in the morning and 1 tablet (3.125 mg) in the evening. Take with meals. 180 tablet 1 cholecalciferol (Vitamin D-3) 10 MCG (400 UNIT) capsule 1 capsule Every 24 hours. enalapril (Vasotec) 20 MG tablet Take 1 tablet (20 mg) by mouth 2 times daily. 180 tablet 1 Fluticasone-Salmeterol (Advair Diskus) 500-50 MCG/ACT aerosol powder INHALE 1 PUFF INTO THE LUNGS IN THE MORNING AND 1 PUFF IN THE EVENING 1 each 11 furosemide (Lasix) 40 MG tablet Take 1 tablet (40 mg) by mouth daily. 90 tablet 1 glimepiride (Amaryl) 1 MG tablet Take 1 tablet (1 mg) by mouth every morning (before breakfast). 90 tablet 1 hydrALAZINE (Apresoline) 25 MG tablet Take 1 tablet (25 mg) by mouth in the morning and 1 tablet (25 mg) at noon and 1 tablet (25 mg) before bedtime. 270 tablet 1 ipratropium-albuterol (Duo-Neb) 0.5-2.5 mg/3 mL nebulizer solution Use unit dose 4 times daily routine 360 mL 11 Nebulizers [facility] [place] Dispense 1 machine with appropriate tubing mask. Use 4 times daily with DuoNeb aerosol mixture 1 Device 1 omeprazole (PriLOSEC) [address] capsule Take 1 capsule (40 mg) by mouth every morning (before breakfast). 90 capsule 1 polyethylene glycol, PEG, 3350 (Glycolax) 17 GM/SCOOP powder Take 17 g by mouth daily. rosuvastatin (Crestor) 10 MG tablet Take 1 tablet (10 mg) by mouth Nightly. 90 tablet 1 No current facility-administered medications on file prior to visit. Patient Active Problem List Diagnosis Cholelithiasis Eczema DDD (degenerative disc disease), cervical Osteoarthritis Asthma Hypertension Renal cyst COPD (chronic obstructive pulmonary disease) (HCC) Type 2 diabetes mellitus without complication, without long-term current use of insulin (CMS/HCC) (HCC) Allergic rhinitis History of colonic polyps History of ovarian cyst Morbidly obese (HCC) PAH (pulmonary artery hypertension) (HCC) RAFAT (obstructive sleep apnea) Chronic systolic (congestive) heart failure (HCC) Stage 3 chronic kidney disease (HCC) Hypercholesterolemia COVID-19 Social History Tobacco Use Smoking status: Former Packs/day: 1 Types: Cigarettes Start date: 08/16/1958 Quit date: 08/16/1994 Years since quittin.9 Smokeless tobacco: Never Substance Use Topics Alcohol use: No Alcohol/week: 0.0 standard drinks of alcohol Past Surgical History: Procedure Laterality Date APPENDECTOMY BREAST SURGERY Left 1979 breast bx BUNIONECTOMY Bilateral 1993 [place] CATARACT EXTRACTION W/ INTRAOCULAR LENS IMPLANT, BILATERAL [address] Connor -Small Polyp EXPLORATORY LAPAROTOMY 2011 Mass removal -Serous lesin vs adeno ca?? Post op DVT & PE EXPLORATORY LAPAROTOMY 2012 Abdominal Scar & Ventral Hernia Repair Dr. Norris TONSILLECTOMY (HISTORICAL) TOTAL ABDOMINAL HYSTERECTOMY 1986 Family History Problem Relation Name Age of Onset Lung cancer Brother Sunil Baez age 79 mets to Brain from Lung, in 2019 Heart disease Brother Sunil Baez 65.00 CABG and defib /pacer High Blood Pressure Mother High Blood Pressure Sister Diabetes Brother Sunil Baez oral rx Lung cancer Mother age 79 Other ([address]) Father TB at age 53 Objective: BP 110/66 Pulse 61 Temp 36.4 C (97.5 F) (Temporal) Ht 5' 1 (1.549 m) SpO2 92% BMI 34.96 kg/m Physical Exam pleasant and cooperative. Nontoxic. Well-hydrated. Normal eardrums and oropharynx. No JVD adenopathy carotid bruits. Heart is regular without gallops or new murmurs or ectopy. Lungs have crackles bibasilar which is chronic. No egophony or wheezing. Abdomen obese nontender without pain hepatosplenomegaly or ascites. Extremities 1+ edema which is chronic. She can move her legs and feet and toes without unilateral neurologic deficit. She is able to stand but with 2 person assist. The sacrum or buttocks does not have any open sores. There is pale blue blanching and pinkness of the sacrum and buttock. No pustules erythema induration or vesicles. documented in this encounter [employer] 07-11-2023 Telephone encounter Note Noted. [employer] 07-11-2023 Telephone encounter Note Message released to patient as written. yes Patient's further questions if applicable: none Were all questions from office addressed or relayed to the patient from encounter: Yes- Mica called back and stated the appt 07/19 230 will work out with transportation for pt. [facility] Called patient and l eft a detailed message for them to return my call to get patient an appointment made sooner than her 07/28/23 for knee evaluation. [facility] 07-11-2023 Telephone encounter Note Called patient and left a detailed message for them to return my call to get patient an appointment made sooner than her 07/28/23 for knee evaluation. [facility] 07-08-2023 Telephone encounter Note Name of caller: Amara Contact phone number: [phone] Relationship to Patient: [facility] Provider: Dr. Dukes Practice: [facility] Chief Complaint/Reason for Call: Amara from [facility] called to inform the provider that the patient will need a face to face visit for documentation of the patient's knee for homecare. Amara stated that the patient has not been seen since 03/24/2023. Amara stated she will inform the . Please advise. Best time of day caller can be reached: Any Patient advised that office/PCP has 24-48 business hours to return their call: Yes [facility] 07-08-2023 Note Pt needs this home c are consultation for this pt for decubitus care till healed [facility] 07-08-2023 Telephone encounter Note Orders for home care to evaluate for wound are pended to be signed. [facility] 07-08-2023 Miscellaneous Notes Orders for home care to evaluate for wound are pended to be signed. Pt needs this home care consultation for this pt for decubitus care till healed documented in this encounter [facility] 07-08-2023 Telephone encounter Note Pt needs this home care consultation for this pt for decubitus care till healed [employer] 07-06-2023 Telephone encounter Note Name of caller: Alee Contact phone number: [phone] Relationship to Patient: patient and spouse Provider: Dr. Dukes Practice: [facility] Chief Complaint/Reason for Call: Alee called together and states Celi Lee has really helped but they both have Covid and he has been waiting for a call to have someone come out to see Halle. Mica stated yesterday a [facility] gentlemen came out but would not help Halle because she is not their patient yet. Mica is very concerned about getting his some help right away. See Nurse triage notes yesterday. Halle is getting better somewhat but does not know for sure. Please help with getting home health care. Best time of day caller can be reached: any Patient advised that office/PCP has 24-48 business hours to return their call: Yes [employer] [facility] 07-06-2023 Miscellaneous Notes Name of caller: Alee Contact phone number: [phone] Relationship to Patient: patient and spouse Provider: Dr. Dukes Practice: [facility] Chief Complaint/Reason for Call: Alee called together and states Celi Lee has really helped but they both have Covid and he has been waiting for a call to have someone come out to see Halle. Mica stated yesterday a [facility] gentlemen came out but would not help Halle because she is not their patient yet. Mica is very concerned about getting his some help right away. See Nurse triage notes yesterday. Halle is getting better somewhat but does not know for sure. Please help with getting home health care. Best time of day caller can be reached: any Patient advised that office/PCP has 24-48 business hours to return their call: Yes documented in this encounter [facility] 07-03-2023 Telephone encounter Note S: Patient's spoke with [facility] nurse regarding: tested positive for Covid today B: Onset of symptoms/concern: last night A: Pt's states pt tested positive for Covid today. Has been very fatigued, c/o upset stomach and some nausea. Denies chest pain, shortness of breath, vomiting. Current temp 98.6 F and O2 93%. R: Pt's aware of message to provider and call back. train caller paged. Per reymundo Christiansen to prescribed normal Paxlovid dose (300/100). Advised to hold Crestor x5 days while taking Paxlovid. Rx called into pt's pharmacy. Pt's called back and notified of rx and directions for Crestor. Advised to take OTC pain reliever for headache, fever as needed as directed. Encouraged increased water intake. Also advised pt of current CDC guidelines. Pt amendable to all advice. Advised pt's that if pt is not feeling better by the end of the 5 day course of medication, to call back. understands all care advice. No further needs at this time. Instructed to call back with questions or concerns. Per CDC guidelines, if you test + for COVID 19, should isolate/stay home for 5 days- you may end the isolation if have no symptoms after day 5 or if symptoms are improving and have been fever free for 24 hours ( without fever reducing medications), but you should wear a well fitted mask for an additional 5 days. If your symptoms are not improving or still with a fever continue at day 5 to isolate until symptoms do improve and you are fever free for 24 hours ( without fever reducing medications). Advised if develops severe/constant chest pain, unable to speak in sentences, confusion or sats below 90% should call 911 or go to ED immediately. Reason for Disposition [1] HIGH RISK for severe COVID complications (e.g., weak immune system, age > 64 years, obesity with BMI > 25, , chronic lung disease or other chronic medical condition) AND [2] COVID symptoms (e.g., cough, fever) (Exceptions: Already seen by PCP and no new or worsening symptoms.) Protocols used: Coronavirus (COVID-19) Diagnosed or [id number] [facility] 07-03-2023 Miscellaneous Notes S: Patient's spoke with [facility] nurse regarding: tested positive for Covid today B: Onset of symptoms/concern: last night A: Pt's states pt tested positive for Covid today. Has been very fatigued, c/o upset stomach and some nausea. Denies chest pain, shortness of breath, vomiting. Current temp 98.6 F and O2 93%. R: Pt's aware of message to provider and call back. train caller paged. Per Dr Dukes, ok to prescribed normal Paxlovid dose (300/100). Advised to hold Crestor x5 days while taking Paxlovid. Rx called into pt's pharmacy. Pt's called back and notified of rx and directions for Crestor. Advised to take OTC pain reliever for headache, fever as needed as directed. Encouraged increased water intake. Also advised pt of current CDC guidelines. Pt amendable to all advice. Advised pt's that if pt is not feeling better by the end of the 5 day course of medication, to call back. understands all care advice. No further needs at this time. Instructed to call back with questions or concerns. Per CDC guidelines, if you test + for COVID 19, should isolate/stay home for 5 days- you may end the isolation if have no symptoms after day 5 or if symptoms are improving and have been fever free for 24 hours ( without fever reducing medications), but you should wear a well fitted mask for an additional 5 days. If your symptoms are not improving or still with a fever continue at day 5 to isolate until symptoms do improve and you are fever free for 24 hours ( without fever reducing medications). Advised if develops severe/constant chest pain, unable to speak in sentences, confusion or sats below 90% should call 911 or go to ED immediately. Reason for Disposition [1] HIGH RISK for severe COVID complications (e.g., weak immune system, age > 64 years, obesity with BMI > 25, , chronic lung disease or other chronic medical condition) AND [2] COVID symptoms (e.g., cough, fever) (Exceptions: Already seen by PCP and no new or worsening symptoms.) Protocols used: Coronavirus (COVID-19) Diagnosed or [id number] documented in this encounter [facility] 06-01-2023 Telephone encounter Note Rx loaded For Handicap placard [facility] 06-01-2023 Miscellaneous Notes Rx loaded For Handicap placard documented in this encounter [facility] 05-05-2023 Telephone encounter Note Rx loaded [facility] 05-05-2023 Miscellaneous Notes Rx loaded Ordering provider: Ernst Date of last office visit: 03.24.23 Date of next office visit: 07.28.23 Updated/Validated preferred pharmacy: Yes Patient instructed to contact the pharmacy prior to picking up the medication: No (1) Medication name: carvedilol (Coreg) 3.125 MG tablet Medication dosage: 3.125 mg (Miligrams Monthly quantity needed: 60 How many day supply requestin year Medication route: oral (PO) Medication administration time(s): Take 1 tablet (3.125 mg) by mouth in the morning and 1 tablet (3.125 mg) in the evening. Take with meals If taking medication PRN, reason for taking medication: N/A If this is a controlled substance do you receive this or any other controlled medication from any other doctor or facility: No Date of last refill (see medication tab): 09.29.23 (2) Medication name: enalapril (Vasotec) 20 MG tablet Medication dosage: 20 mg (Miligrams Monthly quantity needed: 60 How many day supply requestin days Medication route: oral (PO) Medication administration time(s): Take 1 tablet (20 mg) by mouth in the morning and 1 tablet (20 mg) before bedtime If taking medication PRN, reason for taking medication: N/A If this is a controlled substance do you receive this or any other controlled medication from any other doctor or facility: No Date of last refill (see medication tab): (3) Medication name: glimepiride (Amaryl) 1 MG tablet Medication dosage: 1 mg (Miligrams Monthly quantity needed: 30 How many day supply requestin days Medication route: oral (PO) Medication administration time(s): daily If taking medication PRN, reason for taking medication: N/A If this is a controlled substance do you receive this or any other controlled medication from any other doctor or facility: Yes Date of last refill (see medication tab): 12.20.22 (4) Medication name: omeprazole (PriLOSEC) [address] capsule Medication dosage: 40 mg (Miligrams Monthly quantity needed: 30 How many day supply requestin days Medication route: oral (PO) Medication administration time(s): Take 1 capsule (40 mg) by mouth every morning (before breakfast)., If taking medication PRN, reason for taking medication: N/A If this is a controlled substance do you receive this or any other controlled medication from any other doctor or facility: No Date of last refill (see medication tab): 03.24.23 Rx for egg crate hand written out for doctor signature. Will reach out to Celi Howard for other assistance. Name of caller: MARIAN Contact phone number: [phone] Relationship to Patient: FRIEND Provider: DR. DUKES Practice: [facility] Chief Complaint/Reason for Call: MARIAN CALLING AND STATES SHE MOVED THE PATIENTS HOSPITAL BED TO THE LIVING ROOM BECAUSE SHE WAS SLEEPING IN THE CHAIR. MARIAN REQUESTING AN ORDER FOR AN EGG CRATE FOR HER BED AND CHAIR. MARIAN WOULD ALSO LIKE TO KNOW WHY THE PATIENT DOES NOT HAVE A ELECTRIC METER TESTER? PATIENT NEEDS AN AID AND THE [employer] AT [facility] STATES THERE IS NO ONE IN [facility] TO BE AN AID. MARIAN STATES SHE CAN NEVER GET A HOLD OF PASSPORT AND THEY NEVER CALL HER BACK. PLEASE ADVISE. Best time of day caller can be reached: ANY Patient advised that office/PCP has 24-48 business hours to return their call: NO documented in this encounter [facility] 05-05-2023 Telephone encounter Note Ordering provider: Ernst Date of last office visit: 03.24.23 Date of next office visit: 07.28.23 Updated/Validated preferred pharmacy: Yes Patient instructed to contact the pharmacy prior to picking up the medication: No (1) Medication name: carvedilol (Coreg) 3.125 MG tablet Medication dosage: 3.125 mg (Miligrams Monthly quantity needed: 60 How many day supply requestin year Medication route: oral (PO) Medication administration time(s): Take 1 tablet (3.125 mg) by mouth in the morning and 1 tablet (3.125 mg) in the evening. Take with meals If taking medication PRN, reason for taking medication: N/A If this is a controlled substance do you receive this or any other controlled medication from any other doctor or facility: No Date of last refill (see medication tab): 09.29.23 (2) Medication name: enalapril (Vasotec) 20 MG tablet Medication dosage: 20 mg (Miligrams Monthly quantity needed: 60 How many day supply requestin days Medication route: oral (PO) Medication administration time(s): Take 1 tablet (20 mg) by mouth in the morning and 1 tablet (20 mg) before bedtime If taking medication PRN, reason for taking medication: N/A If this is a controlled substance do you receive this or any other controlled medication from any other doctor or facility: No Date of last refill (see medication tab): (3) Medication name: glimepiride (Amaryl) 1 MG tablet Medication dosage: 1 mg (Miligrams Monthly quantity needed: 30 How many day supply requestin days Medication route: oral (PO) Medication administration time(s): daily If taking medication PRN, reason for taking medication: N/A If this is a controlled substance do you receive this or any other controlled medication from any other doctor or facility: Yes Date of last refill (see medication tab): 12.20.22 (4) Medication name: omeprazole (PriLOSEC) [address] capsule Medication dosage: 40 mg (Miligrams Monthly quantity needed: 30 How many day supply requestin days Medication route: oral (PO) Medication administration time(s): Take 1 capsule (40 mg) by mouth every morning (before breakfast)., If taking medication PRN, reason for taking medication: N/A If this is a controlled substance do you receive this or any other controlled medication from any other doctor or facility: No Date of last refill (see medication tab): 03.24.23 [facility] 05-04-2023 Telephone encounter Note Rx for egg crate hand written out for doctor signature. Will reach out to Celi Howard for other assistance. [facility] 05-04-2023 Telephone encounter Note Name of caller: MARIAN Contact phone number: [phone] Relationship to Patient: FRIEND Provider: DR. DUKES Practice: [facility] Chief Complaint/Reason for Call: MARIAN CALLING AND STATES SHE MOVED THE PATIENTS HOSPITAL BED TO THE LIVING ROOM BECAUSE SHE WAS SLEEPING IN THE CHAIR. MARIAN REQUESTING AN ORDER FOR AN EGG CRATE FOR HER BED AND CHAIR. MARIAN WOULD ALSO LIKE TO KNOW WHY THE PATIENT DOES NOT HAVE A ELECTRIC METER TESTER? PATIENT NEEDS AN AID AND THE [employer]ER AT [facility] STATES THERE IS NO ONE IN [facility] TO BE AN AID. MARIAN STATES SHE CAN NEVER GET A HOLD OF PASSPORT AND THEY NEVER CALL HER BACK. PLEASE ADVISE. Best time of day caller can be reached: ANY Patient advised that office/PCP has 24-48 business hours to return their call: NO [facility] 03-30-2023 Telephone encounter Note Rx loaded [facility] 03-30-2023 Miscellaneous Notes Rx loaded Medication name: rosuvastatin (Crestor) 10 MG tablet Medication dosage: 10 mg tablet Monthly quantity needed: 30 How many day supply requestin days Medication route: oral (PO) Medication administration time(s): daily If taking medication PRN, reason for taking medication: N/A If this is a controlled substance do you receive this or any other controlled medication from any other doctor or facility: No Ordering provider: Wes Dukes Date of last office visit: 03/17/23 Date of next office visit: 07/28/23 Date of last refill: (see medication tab): 09/22/22 Updated/Validated preferred pharmacy: Yes Patient instructed to contact the pharmacy prior to picking up the medication: Yes documented in this encounter [facility] 03-30-2023 Telephone encounter Note Medication name: rosuvastatin (Crestor) 10 MG tablet Medication dosage: 10 mg tablet Monthly quantity needed: 30 How many day supply requestin days Medication route: oral (PO) Medication administration time(s): daily If taking medication PRN, reason for taking medication: N/A If this is a controlled substance do you receive this or any other controlled medication from any other doctor or facility: No Ordering provider: Wes Dukes Date of last office visit: 03/17/23 Date of next office visit: 07/28/23 Date of last refill: (see medication tab): 09/22/22 Updated/Validated preferred pharmacy: Yes Patient instructed to contact the pharmacy prior to picking up the medication: Yes [facility] 03-17-2023 History of Present illness Narrative Spoke to patients spouse and he is picking up nebulizer today from pharmacy and will come to office for teaching. documented in this encounter [facility] 03-11-2023 Telephone encounter Note Talked to and he is in need of someone to help train him on how to use their Nebulizer machine for patient. They have been trying to get home healthcare but haven't been having much luck. [facility] 03-11-2023 Miscellaneous Notes Talked to and he is in need of someone to help train him on how to use their Nebulizer machine for patient. They have been trying to get home healthcare but haven't been having much luck. documented in this encounter [facility] 02-22-2023 Telephone encounter Note Last appointment 01/20/2023 , Next appointment is Visit date not found Last filled 05/27/22 #60 each with 5 refills [facility] 02-22-2023 Miscellaneous Notes Last appointment 01/20/2023 , Next appointment is Visit date not found Last filled 05/27/22 #60 each with 5 refills documented in this encounter [facility] 02-12-2023 Telephone encounter Note Orders faxed to [facility] 02-12-2023 Miscellaneous Notes Orders faxed to [facility] Order pended to be signed. Patient would like homecare. Pt called and wanted one of our nurses to come to his home to check out his wifes bruise that she has on her buttock. I told him we don't do that and that it sounds like she needs an at home agency to come out and access. Can we set that up it seems like she had [facility] at one time. Notify Mica at as to what we are going to do. documented in this encounter [facility] 02-11-2023 Telephone encounter Note Order pended to be signed. [facility] 02-11-2023 Telephone encounter Note Patient would like homecare. [facility] 02-11-2023 Telephone encounter Note Pt called and wanted one of our nurses to come to his home to check out his wifes bruise that she has on her buttock. I told him we don't do that and that it sounds like she needs an at home agency to come out and access. Can we set that up it seems like she had [facility] at one time. Notify Mica at as to what we are going to do. [facility] 02-07-2023 Telephone encounter Note Name of caller: Mica Contact phone number: [phone] Relationship to Patient: spouse/SO Provider: Dr Dukes Practice: [facility] Chief Complaint/Reason for Call: Caller is asking for a referral for [facility]. He stated that patient is in a wheelchair and just recently discovered a wound on right buttock. Patient c/o pain in that area. Please adivise. Best time of day caller can be reached: any Patient advised that office/PCP has 24-48 business hours to return their call: Yes [facility] 02-07-2023 Miscellaneous Notes Name of caller: Mica Contact phone number: [phone] Relationship to Patient: spouse/SO Provider: Dr Dukes Practice: [facility] Chief Complaint/Reason for Call: Caller is asking for a referral for [facility]. He stated that patient is in a wheelchair and just recently discovered a wound on right buttock. Patient c/o pain in that area. Please adivise. Best time of day caller can be reached: any Patient advised that office/PCP has 24-48 business hours to return their call: Yes documented in this encounter [facility] 11-30-2022 Note Referral was done to [facility] in [place] per 's request. Please verify with where pt want this referral to. Will need name and address. [facility] 11-08-2022 Telephone encounter Note refaxed [facility] 11-08-2022 Miscellaneous Notes refaxed Name of caller: Aimee Contact phone number: [phone] Relationship to Patient: From [facility] Provider: Ernst Practice: [facility] Chief Complaint/Reason for Call:Aimee says that Dr Dukes sent over a fax to them but they were not able to see most of the pages, please refax to [phone] Best time of day caller can be reached: Any Patient advised that office/PCP has 24-48 business hours to return their call: Yes documented in this encounter [facility] 11-05-2022 Telephone encounter Note Name of caller: Aimee Contact phone number: [phone] Relationship to Patient: From [facility] Provider: Ernst Practice: [facility] Chief Complaint/Reason for Call:Aimee says that Dr Dukes sent over a fax to them but they were not able to see most of the pages, please refax to [phone] Best time of day caller can be reached: Any Patient advised that office/PCP has 24-48 business hours to return their call: Yes [facility] 08-20-2021 Note HNO ID: [id number] Author: Donna Omalley PA-C Service: ? Author Type: Physician Birth Attendant Type: Progress Notes Filed: 08/20/2021 2:46 PM Note Text: CHIEF COMPLAINT: Patient presents with: Procedure Follow Up: Oropharyngeal dysphagia. EGD 07/24/21 HPI Accompanied by spouse Mica. Halle Patel is a 85 year old female PMHx positive for asthma, COPD, HF, HTN, PAH, DM II here today for Procedure Follow Up (Oropharyngeal dysphagia. EGD 07/24/21). EGD 07/21/2021 demonstrated chronic inflammation at GEJ w/o metaplasia. Includes that since procedure she has had improvement in dysphagia. BMs are currently one per day normal consistency, no blood. Taking Miralax every other day, prune juice with good relief. OV 06/18/2021 Accompanied by spouse Mica and sister in law. ? Halle Patel is a 85 year old female with PMHx positive for asthma, COPD, HF, HTN, PAH, DM II who presents for swallowing issues (cookie swallow 05/06/21). Patient's cookie swallow 05/06/2021 demonstrated findings of oropharyngeal dysphagia. Was recommended to see GI to obtain EGD to rule out possible esophageal narrowing/schatzki's rings. CBC from 03/04/2021 demonstrated mild anemia with Hgb at 11.9. CMP revealed evidence of CKD, decreased kidney function, hyponatremia, LFTs bili WNL. States she has had dysphagia with solids for several months. Admits to episodes of regurgitating phlegm . Feels as though foods are getting stuck in mid-esophagus. Takes Prilosec 40 mg daily for the past few months and feels as though this works well for GERD sx but has not been helping dysphagia. Takes Miralax every other day as every day was causing diarrhea. BMs are currently every other day, normal consistency, no blood. Also drinking prune juice. Denies regurgitation of solid foods, family hx of GI related cancers. ? Cookie swallow 05/06/2021 ? FINDINGS: Patient has?diminished oral bolus formation with tongue rocking. There is diminished propulsion of the disorganized oral bolus. There is laryngeal penetration with multiple consistencies transiently but no aspiration was witnessed. ? ? Current Outpatient Medications Medication Sig - ofloxacin (OCUFLOX) 0.3 % ophthalmic solution - PROLENSA 0.07 % drop - CRANBERRY FRUIT, BULK, MISC 4,200 mg once daily. - Ca comb no.1/vit D3/B6/FA/B12 (VITAMIN D3, CALCIUM CIT-PHOS, ORAL) Take 2,000 mg by mouth once daily. - hydrALAZINE (APRESOLINE) 25 mg tablet Increase to one tab 3 times a day - omeprazole (PRILOSEC) 40 mg capsule Take 40 mg by mouth. - albuterol HFA (PROVENTIL HFA, VENTOLIN HFA) 90 mcg/actuation inhaler Inhale 2 Puffs as instructed. - ascorbic acid, vitamin C, (VITAMIN C) 250 mg tablet Take 1,000 mg by mouth. - aspirin, enteric coated (ASPIRIN, ENTERIC COATED) 325 mg EC tablet Take 325 mg by mouth. - carvedilol (COREG) 6.25 mg tablet Take 6.25 mg by mouth. - cetirizine (ZYRTEC) 10 mg tablet Take 10 mg by mouth. - enalapril (VASOTEC) 20 mg tablet - fluticasone-salmeterol (ADVAIR, WIXELA) 250-50 mcg/dose inhaler Inhale 1 Puff as instructed. - FLOVENT HFA 44 mcg/actuation inhaler - furosemide (LASIX) 40 mg tablet Take 40 mg by mouth. - glimepiride (AMARYL) 1 mg tablet Take 1 mg by mouth. - polyethylene glycol 3350 (MIRALAX, GLYCOLAX) 17 gram/dose powder Take 17 g by mouth. No current facility-administered medications for this visit. ALLERGIES Allergen Reactions - Acetaminophen Hives, Shortness of Breath, Unknown Other reaction(s): anaphylaxis - Celecoxib Other: See Comments, Unknown ISA - Amphetamine Sulfate Unknown - Aztreonam Unknown Other reaction(s): Unknown - Uegtm-Agkclodz-Ed G* Unknown - Carbamazepine Unknown - Carbapenems Unknown Tolerated cefdinir 09/2020 - Codeine Hives, Unknown Other reaction(s): Unknown - Doxycycline Hives - Epinephrine Hcl Unknown - Latex Hives, Unknown - Morphine Sulfate Unknown - Nickel Unknown - Penicillins Unknown Tolerated cefdinir 09/2020 - Phenacetin Anaphylaxis - Propacetamol Anaphylaxis - Saccharin Unknown - Shellfish Containin* Swelling - Sulfa (Sulfonamide * Unknown Social History Tobacco Use - Smoking status: Former Smoker Packs/day: 1.00 Years: 37.00 Pack years: 37.00 Quit date: 1993 Years since quittin.8 - Smokeless tobacco: Never Used Vaping Use - Vaping Use: Never used Substance Use Topics - Alcohol use: Not Currently - Drug use: Never PAST MEDICAL HISTORY Diagnosis Date - Asthma - COPD (chronic obstructive pulmonary disease) (HCC) - Diastolic heart failure (HCC) - HTN (hypertension) - PAH (pulmonary artery hypertension) (HCC) - Type 2 diabetes (HCC) PAST SURGICAL HISTORY Procedure Laterality Date - APPENDECTOMY - COLONOSCOPY GEN ANES 01/14/2014 inflammatory polyp, hemorrhoids, pancolonic diverticulosis - EGD 07/24/2021 Grade A esophagitis - TOTAL ABDOM HYSTERECTOMY 1986 FAMILY HISTORY Problem Relation Age (more content not included)... [facility] 06-18-2021 Note HNO ID: [id number] Author: Donna Omalley PA-C Service: ? Author Type: Physician Birth Attendant Type: Progress Notes Filed: 06/18/2021 1:29 PM Note Text: CHIEF COMPLAINT: Patient presents with: swallowing issues: cookie swallow 05/06/21 HPI: Accompanied by spouse Mica and sister in law. Halle Patel is a 85 year old female with PMHx positive for asthma, COPD, HF, HTN, PAH, DM II who presents for swallowing issues (cookie swallow 05/06/21). Patient's cookie swallow 05/06/2021 demonstrated findings of oropharyngeal dysphagia. Was recommended to see GI to obtain EGD to rule out possible esophageal narrowing/schatzki's rings. CBC from 03/04/2021 demonstrated mild anemia with Hgb at 11.9. CMP revealed evidence of CKD, decreased kidney function, hyponatremia, LFTs bili WNL. States she has had dysphagia with solids for several months. Admits to episodes of regurgitating phlegm . Feels as though foods are getting stuck in mid-esophagus. Takes Prilosec 40 mg daily for the past few months and feels as though this works well for GERD sx but has not been helping dysphagia. Takes Miralax every other day as every day was causing diarrhea. BMs are currently every other day, normal consistency, no blood. Also drinking prune juice. Denies regurgitation of solid foods, family hx of GI related cancers. Cookie swallow 05/06/2021 FINDINGS: Patient has?diminished oral bolus formation with tongue rocking. There is diminished propulsion of the disorganized oral bolus. There is laryngeal penetration with multiple consistencies transiently but no aspiration was witnessed. Record Review: [facility] / Outside records reviewed. PAST MEDICAL HISTORY Diagnosis Date - Asthma - COPD (chronic obstructive pulmonary disease) (HCC) - Diastolic heart failure (HCC) - HTN (hypertension) - PAH (pulmonary artery hypertension) (HCC) - Type 2 diabetes (HCC) PAST SURGICAL HISTORY Procedure Laterality Date - APPENDECTOMY - COLONOSCOPY GEN ANES 01/14/2014 inflammatory polyp, hemorrhoids, pancolonic diverticulosis - TOTAL ABDOM HYSTERECTOMY 1986 Allergies: ALLERGIES Allergen Reactions - Acetaminophen Hives, Shortness of Breath, Unknown Other reaction(s): anaphylaxis - Celecoxib Other: See Comments, Unknown ISA - Amphetamine Sulfate Unknown - Aztreonam Unknown Other reaction(s): Unknown - Ybxxk-Fgkgyltu-Jk G* Unknown - Carbamazepine Unknown - Carbapenems Unknown Tolerated cefdinir 09/2020 - Codeine Hives, Unknown Other reaction(s): Unknown - Doxycycline Hives - Epinephrine Hcl Unknown - Latex Hives, Unknown - Morphine Sulfate Unknown - Nickel Unknown - Penicillins Unknown Tolerated cefdinir 09/2020 - Phenacetin Anaphylaxis - Propacetamol Anaphylaxis - Saccharin Unknown - Shellfish Containin* Swelling - Sulfa (Sulfonamide * Unknown Medications: hydrALAZINE (APRESOLINE) 25 mg tablet Increase to one tab 3 times a day omeprazole (PRILOSEC) 40 mg capsule Take 40 mg by mouth. albuterol HFA (PROVENTIL HFA, VENTOLIN HFA) 90 mcg/actuation inhaler Inhale 2 Puffs as instructed. ascorbic acid, vitamin C, (VITAMIN C) 250 mg tablet Take 1,000 mg by mouth. aspirin, enteric coated (ASPIRIN, ENTERIC COATED) 325 mg EC tablet Take 325 mg by mouth. carvedilol (COREG) 6.25 mg tablet Take 6.25 mg by mouth. cetirizine (ZYRTEC) 10 mg tablet Take 10 mg by mouth. chlorthalidone (HYGROTON) 50 mg tablet 1 tablet in the morning enalapril (VASOTEC) 20 mg tablet fluticasone-salmeterol (ADVAIR, WIXELA) 250-50 mcg/dose inhaler Inhale 1 Puff as instructed. FLOVENT HFA 44 mcg/actuation inhaler furosemide (LASIX) 40 mg tablet Take 40 mg by mouth. glimepiride (AMARYL) 1 mg tablet Take 1 mg by mouth. losartan (COZAAR) 50 mg tablet 1 tab polyethylene glycol 3350 (MIRALAX, GLYCOLAX) 17 gram/dose powder Take 17 g by mouth. spironolactone (ALDACTONE) 25 mg tablet Take 25 mg by mouth. FAMILY HISTORY Problem Relation Age of Onset - Colon Cancer No Family History Employer And Job Title: None on file Years Of Education Completed: Not specified Marital Status: Social History Tobacco Use - Smoking status: Former Smoker - Smokeless tobacco: Never Used Vaping Use - Vaping Use: Never used Substance Use Topics - Alcohol use: Not Currently - Drug use: Never Review of Systems: Review of Systems Respiratory: Positive for cough and shortness of breath. Cardiovascular: Positive for leg swelling. Gastrointestinal: Positive for constipation and vomiting. Gas, heartburn, trouble swallowing All other systems reviewed and are negative. Are you taking any blood thinners? No Physical Examination: BP 117/66 Ht 152.4 cm (5') Wt 80.7 kg (178 lb) BMI 34.76 kg/m? Physical Exam Constitutional: General: She is not in acute distress. Appearance: Normal appearance. She is normal weight. She is not ill-appearing, toxic-appearing or diaphoretic. HENT: Head: Normocephalic (more content not included)... [facility] 05-06-2021 History of Present illness Narrative Speech Language Pathology An OP Modified Barium Swallow Study (MBSS) evaluation was completed. The full Speech Pathology report is located under the Chart Review section of [facility]. Click on the Procedure tab to locate the Speech Pathologist MBSS results and recommendations titled LABORATORY COORDINATOR video swallow on this date. SHARI Ford M.A. [facility]-LABORATORY COORDINATOR documented in this encounter [facility] Work Phone: 10-22-2020 Note Hospitalist Discharg e Summary Halle Patel : 1935 Admit date: 10/15/2020 Discharge date: 10/22/2020 Admitting Physician: Lourdes Manuel MD Primary Care Physician: Kirby Dukes DO Visit Status: Admission Code Status: Full Code < today. Patient also hypokalemic so will replace prior to discharge>> Discharge Diagnoses: 1. Acute Severe Hyperkalemia - Resolved 2. Hyponatremia - Resolved 3. ISA 2/2 ATN (NSAIDs, SCOOBY, hypotension) 4. CKD stage 2/3 5. NAGMA - Resolved 6. Acute Respiratory Insufficiency s/s COPD - On room air 7. COPD 8. E.coli UTI 9. Anemia -Stable 10. Left arm pain/ swelling 11. HTN 12. HFrEF 13. DM II 14. Obesity Diagnosis Date ? Allergic rhinitis ? Asthma ? Colon cancer screening 06/2019 neg Cologuard ? COPD (chronic obstructive pulmonary disease) (HCC) 2011 Mild per PFTs- exsmoker since 1993 ? DDD (degenerative disc disease), cervical ? Diastolic heart failure (HCC) 03/2020 EF 35 %- [place] consult ? DVT (deep venous thrombosis) (HCC) 06/2011 and PE post op oophorectomy ? Eczema ? Ex-smoker 1993 ? Gallstones 2010 asymptomatic ? H/O colonoscopy with polypectomy 2013 Dr. Connor ? HFrEF (heart failure with reduced ejection fraction) ([facility]) ? 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 Hypertension 2010 TIA- 10/28 Ct Head , eeg & echo all WNL ? Osteoarthritis hip and knee, L/S spine. ? PAH (pulmonary artery hypertension) ([facility]) 03/2020 workup pnd ? Renal cyst ? Type 2 diabetes mellitus (HCC) 2010 diet controlled till 2014, DR TREJO Procedures: UE US, CT(abd,pelvis) Hospital Course: 85 year old female who was sent to ER for abnormal labs of K+ (8.2) and creatinine(2.65). Found to be hypotensive, hyperkalemic, and renal insufficiency. Admitted to ICU level of care. Stabilized and transferred to hospitalist service. Therapy recommended post acute care facility at discharge. See medication adjustments below in med rec.The patient is discharged in improved and stable condition. Consults: IP CONSULT TO NEPHROLOGY IP CONSULT TO PALLIATIVE CARE IP CONSULT TO HEM/ONC IP CONSULT TO CARDIOLOGY Discharge Instructions: Diet: DIET RENAL; Carb Control: 4 carb choices (60 gms)/meal Activity: as tolerated Recommended Outpatient Tests: repeat CBC and BMP in 3 days Disposition: Patient discharged in stable condition to SNF. Greater than 30 minutes spent discharging the patient and coming up with patient discharge plan. Vitals: BP (!) 148/58 Pulse 65 Temp 96.7 ?F (35.9 ?C) (Temporal) Resp 18 Ht 4' 11 (1.499 m) Wt 193 lb 9 oz (87.8 kg) SpO2 96% BMI 39.10 kg/m? Pulse Ox: SpO2 Av.4 % Min: 95 % Max: 96 % Supplemental O2: General appearance: No apparent distress, appears stated age and cooperative with exam HEENT: Normal cephalic, atraumatic without obvious deformity. Pupils equal, round, and reactive to light. Extra ocular muscles intact. Conjunctivae/corneas clear. Neck: Supple, with full range of motion. No jugular venous distention. Trachea midline. No lymphadenopathy. Respiratory: Normal respiratory effort. Clear to auscultation, bilaterally without Rales/Wheezes/Rhonchi. Cardiovascular: Regular rate and rhythm with normal S1/S2 without murmurs, rubs or gallops. Abdomen: Soft, non-tender, non-distended with normal bowel sounds. No rebound or guarding. Musculoskeletal: No clubbing, cyanosis or edema bilaterally. Full range of motion without deformity. Skin: Skin color, texture, turgor normal. No rashes or lesions. Neurologic: Neurovascularly intact without any focal sensory/motor deficits. Cranial nerves: II-XII intact, grossly non-focal. Discharge Medications: Halle Patel Home Medication Instructions RANDY:[id number] Printed on:10/22/20 8436 Medication Information albuterol sulfate HFA (PROVENTIL HFA) 108 (90 Base) MCG/ACT inhaler Inhale 2 puffs into the lungs every 6 hours as needed for Wheezing carvedilol (COREG) 6.25 MG tablet Take 1 tablet by mouth 2 times daily for 180 doses cetirizine (ZYRTEC) 10 MG tablet Take 10 mg by mouth daily Cholecalciferol (VITAMIN D-3 PO) Take 2,000 Units by mouth daily CRANBERRY FRUIT CONCENTRATE PO Take 4,200 mg by mouth daily enalapril (VASOTEC) 20 MG tablet take 1 tablet by mouth twice a day epoetin dave-epbx (RETACRIT) 44558 UNIT/ML SOLN injection Inject 1 mL into the skin every 7 days fluticasone (FLOVENT HFA) 44 MCG/ACT inhaler Inhale 2 puffs into the lungs 2 times daily furosemide (LASIX) 40 MG tablet Take 1 tablet by mouth daily Handicap Placard MISC by Does not apply route DX: knee osteoarthritis Duration: 5 years ipratropium-albuterol (DUONEB) 0.5-2.5 (3) MG/3ML SOLN nebulizer solution Inhale 3 mLs into the lungs every 4 hours as needed for Shortness of Breath Multiple Vitamin (MULTI-DAY VITAMINS PO) Take by mouth daily potassium (more content not included)... [facility] 10-21-2020 Note Hospitalist Discharg e Summary Halle Patel : 1935 Admit date: 10/15/2020 Discharge date: 10/21/2020 Admitting Physician: Lourdes Manuel MD Primary Care Physician: Kirby Dukes DO Visit Status: Admission Code Status: Full Code Discharge Diagnoses: 1. Acute Severe Hyperkalemia - Resolved 2. Hyponatremia - Resolved 3. ISA 2/2 ATN (NSAIDs, SCOOBY, hypotension) 4. NAGMA - Resolved 5. Acute Respiratory Insufficiency s/s COPD - On room air 6. COPD 7. E.coli UTI 8. Anemia -Stable 9. Left arm pain/ swelling 10. HTN 11. HFrEF 12. DM II 13. Obesity Diagnosis Date ? Allergic rhinitis ? Asthma ? Colon cancer screening 06/2019 neg Cologuard ? COPD (chronic obstructive pulmonary disease) ([facility]) 2011 Mild per PFTs- exsmoker since 1993 ? DDD (degenerative disc disease), cervical ? Diastolic heart failure (HCC) 03/2020 EF 35 %- Supriya consult ? DVT (deep venous thrombosis) ([facility]) 06/2011 and PE post op oophorectomy ? Eczema ? Ex-smoker 1993 ? Gallstones 2010 asymptomatic ? H/O colonoscopy with polypectomy 2013 Dr. Connor ? HFrEF (heart failure with reduced ejection fraction) ([facility]) ? 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 Hypertension 2011 TIA- 10/28 Ct Head , eeg & echo all WNL ? Osteoarthritis hip and knee, L/S spine. ? PAH (pulmonary artery hypertension) ([facility]) 03/2020 workup pnd ? Renal cyst ? Type 2 diabetes mellitus (HCC) 2010 diet controlled till 2014, DR TREJO Procedures: UE US, CT(abd,pelvis) Hospital Course: 85 year old female who was sent to ER for abnormal labs of K+ (8.2) and creatinine(2.65). Found to be hypotensive, hyperkalemic, and renal insufficiency. Admitted to ICU level of care. Stabilized and transferred to hospitalist service. Therapy recommended post acute care facility at discharge. See medication adjustments below in med rec.The patient is discharged in improved and stable condition. Consults: IP CONSULT TO NEPHROLOGY IP CONSULT TO PALLIATIVE CARE IP CONSULT TO HEM/ONC IP CONSULT TO CARDIOLOGY Discharge Instructions: Diet: DIET RENAL; Carb Control: 4 carb choices (60 gms)/meal Activity: as tolerated Recommended Outpatient Tests: repeat CBC and BMP in 3 days Disposition: Patient discharged in stable condition to SNF. Greater than 30 minutes spent discharging the patient and coming up with patient discharge plan. Vitals: BP 113/83 Pulse 77 Temp 98.5 ?F (36.9 ?C) (Temporal) Resp 20 Ht 4' 11 (1.499 m) Wt 196 lb 12.8 oz (89.3 kg) SpO2 92% BMI 39.75 kg/m? Pulse Ox: SpO2 Av.9 % Min: 90 % Max: 97 % Supplemental O2: General appearance: No apparent distress, appears stated age and cooperative with exam HEENT: Normal cephalic, atraumatic without obvious deformity. Pupils equal, round, and reactive to light. Extra ocular muscles intact. Conjunctivae/corneas clear. Neck: Supple, with full range of motion. No jugular venous distention. Trachea midline. No lymphadenopathy. Respiratory: Normal respiratory effort. Clear to auscultation, bilaterally without Rales/Wheezes/Rhonchi. Cardiovascular: Regular rate and rhythm with normal S1/S2 without murmurs, rubs or gallops. Abdomen: Soft, non-tender, non-distended with normal bowel sounds. No rebound or guarding. Musculoskeletal: No clubbing, cyanosis or edema bilaterally. Full range of motion without deformity. Skin: Skin color, texture, turgor normal. No rashes or lesions. Neurologic: Neurovascularly intact without any focal sensory/motor deficits. Cranial nerves: II-XII intact, grossly non-focal. Discharge Medications: Halle Patel Home Medication Instructions RANDY:[id number] Printed on:10/21/20 1031 Medication Information albuterol sulfate HFA (PROVENTIL HFA) 108 (90 Base) MCG/ACT inhaler Inhale 2 puffs into the lungs every 6 hours as needed for Wheezing carvedilol (COREG) 6.25 MG tablet Take 1 tablet by mouth 2 times daily for 180 doses cetirizine (ZYRTEC) 10 MG tablet Take 10 mg by mouth daily Cholecalciferol (VITAMIN D-3 PO) Take 2,000 Units by mouth daily CRANBERRY FRUIT CONCENTRATE PO Take 4,200 mg by mouth daily enalapril (VASOTEC) 20 MG tablet take 1 tablet by mouth twice a day epoetin dave-epbx (RETACRIT) 92660 UNIT/ML SOLN injection Inject 1 mL into the skin every 7 days fluticasone (FLOVENT HFA) 44 MCG/ACT inhaler Inhale 2 puffs into the lungs 2 times daily furosemide (LASIX) 40 MG tablet Take 1 tablet by mouth daily Handicap Placard MISC by Does not apply route DX: knee osteoarthritis Duration: 5 years ipratropium-albuterol (DUONEB) 0.5-2.5 (3) MG/3ML SOLN nebulizer solution Inhale 3 mLs into the lungs every 4 hours as needed for Shortness of Breath Multiple Vitamin (MULTI-DAY VITAMINS PO) Take by mouth daily Recommended Follow-up: Alysia oDn, COURT REPORTER - MANAGER OF CORPORATE [address] [address] (more content not included)... [facility] Diagnosis Pulmonary emphysema, unspecified emphysema type (HCC) [facility]* Diagnosis Pulmonary emphysema, unspecified emphysema type (HCC)- Primary Lumbar degenerative disc disease Chronic systolic (congestive) heart failure (HCC) documented [facility]* Diagnosis Morbidly obese (HCC)- Primary Morbid obesity Type 2 diabetes mellitus with chronic kidney disease, without long-term current use of insulin, unspecified CKD stage (HCC) Chronic systolic (congestive) heart failure (HCC) Pressure injury of skin of sacral region, unspecified injury stage Debility Unspecified debility documented in [facility] encounter [facility]* Diagnosis Pressure injury of skin of sacral region, unspecified injury stage- Primary Type 2 diabetes mellitus without complication, without long-term current use of insulin (CMS/HCC) (HCC) Chronic systolic (congestive) heart failure (HCC) Pulmonary emphysema, unspecified emphysema type (HCC) Hypercholesterolemia Pure hypercholesterolemia Morbidly obese (HCC) Morbid obesity MCI (mild cognitive impairment) with memory loss Mild cognitive impairment, so stated [facility]* Diagnosis Primary hypertension Unspecified essential hypertension [facility]* Diagnosis Chronic systolic (congestive) heart failure (HCC)- Primary Pressure injury of skin of sacral region, unspecified injury stage Type 2 diabetes mellitus without complication, without long-term current use of insulin ([facility]) (HCC) MCI (mild cognitive impairment) with memory loss Mild cognitive impairment, so stated documented [facility]* Diagnosis Debility Unspecified debility Chronic obstructive pulmonary disease, unspecified COPD type (HCC) Congestive heart failure, unspecified HF chronicity, unspecified heart failure type ([facility]) documented [facility]* Diagnosis Chronic systolic (congestive) heart failure (HCC)- Primary documented in this encounter [facility]* Diagnosis Pulmonary emphysema, unspecified emphysema type (HCC)- Primary Chronic systolic (congestive) heart failure (HCC) Pressure injury of skin, unspecified injury stage, unspecified location [facility]* Diagnosis Mild cognitive impairment- Primary Mild cognitive impairment, so stated Chronic systolic (congestive) heart failure (HCC) Debility Unspecified debility Pulmonary emphysema, unspecified emphysema type (HCC) Pressure injury of skin of right buttock, unspecified injury stage documented [facility]* Diagnosis Pressure injury of skin of buttock, unspecified injury stage, unspecified laterality- Primary Mild cognitive impairment Mild cognitive impairment, so stated Chronic systolic (congestive) heart failure (HCC) Type 2 diabetes mellitus with chronic kidney disease, without long-term current use of insulin, unspecified CKD stage ([facility]) Debility Unspecified debility documented in this encounter [facility] Diagnosis WRIGHT (dyspnea on exertion) Other dyspnea and respiratory abnormality Chronic obstructive pulmonary disease, unspecified COPD type ([facility]) Diagnosis WRIGHT (dyspnea on exertion) Other dyspnea and respiratory abnormality Diagnosis Hypertension, unspecified type- Primary Diagnosis Hyperkalemia- Primary Hyperpotassemia Renal insufficiency Unspecified disorder of kidney and ureter Hypertension Unspecified essential hypertension Type 2 diabetes mellitus (HCC) Type II or unspecified type diabetes mellitus without mention of complication, not stated as uncontrolled HFrEF (heart failure with reduced ejection fraction) ([facility]) Metabolic acidosis Acidosis ISA (acute kidney injury) (HCC) Acute kidney failure, unspecified Acute pain of left shoulder Debility Debility, unspecified Advance Directives No Advanced Directives Records FoundDocuments on File Type Date Recorded Patient Doctor Naturopathic Expl anation Advance Directives and Living Will Power of Registration Rep Documents on File Type Date Recorded Patient Doctor Naturopathic Expl anation Advance Directives and Living Will Power of Registration Rep Documents on File Type Date Recorded Patient Doctor Naturopathic Expl anation ACP-Advance Directive ACP-Power of Registration Rep Latest Code Status on File Code Status Date Activated Date Inactivated Comments Full Code 10/16/2020 4:55 AM 10/22/2020 4:52 PM Latest Code Status on File Code Status Date Activated Date Inactivated Comments Full Code 10/16/2020 4:55 AM Reason for Referral Status Reason Specialty Diagnoses / Procedures Referre d By Contact Referred To Contact [facility] Diagnoses WRIGHT (dyspnea on exertion) Procedures ECHO Complete 2D W Doppler W Color Kirby Dukse, DO [address] [place] [address] Specialty Diagnoses / Procedures Referred By Contac t Referred To Contact Home Health Services Diagnoses Chronic systolic (congestive) heart failure (HCC) Debility Pulmonary emphysema, unspecified emphysema type (HCC) Type 2 diabetes mellitus without complication, without long-term current use of insulin (CMS/HCC) (HCC) Procedures DC OFFICE/OUTPATIENT NEW HIGH MDM 60-74 MINUTES Kirby Dukes, DO [address] [place] [address] Referral ID Status Reason Start Date Expiration Date Visits Requested Visits Authorized [id number] Pending Review Specialty Services Required 02/11/2023 08/10/2023 [id number] Specialty Diagnoses / Procedures Referred By Contac t Referred To Contact Home Health Services / Alarm Signaler Diagnoses Morbidly obese (HCC) Type 2 diabetes mellitus with chronic kidney disease, without long-term current use of insulin, unspecified CKD stage (HCC) Chronic systolic (congestive) heart failure (HCC) Pressure injury of skin of sacral region, unspecified injury stage Debility Procedures DC OFFICE/OUTPATIENT NEW HIGH MDM 60-74 MINUTES Kirby Dukes F, DO [address] [place] [address] [phone] Referral ID Status Reason Start Date Expiration Date V isits Requested Visits Authorized [id number] Closed Specialty Services Required 07/08/2023 01/04/2024 [id number] Specialty Diagnoses / Procedures Referred By Contac t Referred To Contact Home Health Services Diagnoses Pressure injury of skin of sacral region, unspecified injury stage Procedures DC OFFICE/OUTPATIENT NEW [facility]IGH [facility] 60-74 MINUTES Kirby Dukes F, DO [address] [place] [address] Referral ID Status Reason Start Date Expiration Date Visits Requested Visits Authorized [id number] Pending Review Specialty Services Required 01/30/2024 [id number] Specialty Diagnoses / Procedures Referred By Contac t Referred To Contact Home Health Services / Alarm Signaler Diagnoses Debility Chronic obstructive pulmonary disease, unspecified COPD type (HCC) Congestive heart failure, unspecified HF chronicity, unspecified heart failure type (HCC) Procedures DC OFFICE/OUTPATIENT [facility] 60-74 MINUTES Kirby Dukes F, DO [address] [place] [phone] [phone] Referral ID Status Reason Start Date Expiration Date V isits Requested Visits Authorized [id number] Closed Specialty Services Required 08/05/2023 02/01/2024 [id number] Specialty Diagnoses / Procedures Referred By Contac t Referred To Contact Cardiology Diagnoses Chronic systolic (congestive) heart failure (HCC) Procedures Transthoracic echocardiogram (TTE) complete with contrast, bubble, strain, and 3D PRN DC ECHO TTHRC R-T 2D W/WOM-MODE COMPL SPEC&COLR D DC TTE W OR WO FOL WCON,Candy Zambrano MD [address] [place] [address] [place] [id number] Referral ID Status Reason Start Date Expiration Date V isits Requested Visits Authorized [id number] Pending Review 08/29/2023 08/28/2024 1 1 Specialty Diagnoses / Procedures Referred By Contac t Referred To Contact Home Health Services Diagnoses Pulmonary emphysema, unspecified emphysema type (HCC) Chronic systolic (congestive) heart failure (HCC) Pressure injury of skin, unspecified injury stage, unspecified location Procedures DC OFFICE/OUTPATIENT NEW HIGH MDM 60 MINUTES EmanuelKirby alva, [address] [place] [address] Referral ID Status Reason Start Date Expiration Date Visits Requested Visits Authorized [id number] Pending Review Specialty Services Required 10/26/2023 10/20/2024 [id number] Specialty Diagnoses / Procedures Referred By Adis milner Referred To Contact Home Health Services / Case Management Diagnoses Pressure injury of skin of right buttock, unspecified injury stage Procedures DC OFFICE/OUTPATIENT NEW HIGH MDM 60 MINUTES ErnstKirby, [address] [place] [address] [facility] Case Management [address] [place] [phone] Referral ID Status Reason Start Date Expiration Date Visits Requested Visits Authorized [id number] Pending Review Specialty Services Required 11/01/2023 10/26/[phone] Discharge Instructions * Instructions* Horacio Das PA - 12/02/2020 Please take medication as prescribed Please follow up with your Physicians as instructed in this discharge paperwork Thank you for choosing [facility] I appreciate your patience Please return to the emergency department if your symptoms worsen, or new symptoms develop as discussed * Attachments The following attachments cannot be sent through Care Everywhere. * Hypertension: General Info (Italian) documented in this encounter* Discharge Instr - Activity* Bj Castillo DO - 10/21/2020 10:30 AM EST As tolerated * Discharge Instr - Diet* Horacio Soto RN - 10/21/2020 10:30 AM EST ? Good nutrition is important when healing from an illness, injury, or surgery. Follow any nutrition recommendations given to you during your hospital stay. ? If you were given an oral nutrition supplement while in the hospital, continue to take this supplement at home. You can take it with meals, in-between meals, and/or before bedtime. These supplements can be purchased at most local grocery stores, pharmacies, and chain super-stores. ? If you have any questions about your diet or nutrition, call the hospital and ask for the dietitian. Renal Diet/Carb control * Discharge Instr - RADHA* Horacio Soto RN - 10/21/2020 10:30 AM EST Continuity of Care Form Patient Name: Halle Patel : 1935 Admit date: 10/15/2020 Discharge date: Code Status Order: Full Code Advance Directives: Advance Care Flowsheet Documentation Date/Time Healthcare Directive Type of Healthcare Directive Copy in Chart Healthcare Agent Appointed Healthcare Agent's Name Healthcare Agent's Phone Number 10/16/20 0635 No, patient does not have an advance directive for healthcare treatment -- -- -- -- -- Admitting Physician: Lourdes Manuel MD PCP: Kirby Dukes DO Discharging Nurse: Discharging Hospital Unit/Room#: 253/2532 Discharging Unit Phone Number: Emergency Contact: Extended Emergency Contact Information Primary Emergency Contact: Mica Patel [facility] Relation: Spouse Secondary Emergency Contact: Malika Persaud [facility] Relation: Child Past Surgical History: Past Surgical History: Procedure Laterality Date APPENDECTOMY BREAST SURGERY Left 1979 breast bx BUNIONECTOMY Bilateral 1993 [place] COLONOSCOPY 12/[address] Connor -Small Polyp HYSTERECTOMY, TOTAL ABDOMINAL 1987 LAPAROTOMY 2010 Mass removal -Serous lesin vs adeno ca?? Post op DVT & PE LAPAROTOMY 2011 Abdominal Scar & Ventral Hernia Repair Dr. Norris TONSILLECTOMY Immunization History: Immunization History Administered Date(s) Administered Influenza Vaccine, unspecified formulation 08/07/2018 Influenza Virus Vaccine 08/19/2013, 08/27/2015 Influenza, High Dose (Fluzone 65 yrs and older) 07/21/2020 Pneumococcal Conjugate 13-valent ([id number]) 10/27/2015 Pneumococcal Polysaccharide ([id number]) 06/22/2005 Active Problems: Patient Active Problem List Diagnosis Code Hypertension I10 COPD (chronic obstructive pulmonary disease) (HCC) J44.9 Allergic rhinitis J30.9 History of colonic polyps Z86.010 Renal cyst N28.1 History of ovarian cyst Z87.42 Osteoarthritis M19.90 Eczema L30.9 DDD (degenerative disc disease), cervical M50.30 Cholelithiasis K80.20 Asthma J45.909 Type 2 diabetes mellitus without complication, without long-term current use of insulin (HCC) E11.9 Lumbar degenerative disc disease M51.36 Type 2 diabetes mellitus ([facility]) E11.9 Morbidly obese ([facility]) E66.01 Diastolic heart failure ([facility]) I50.30 PAH (pulmonary artery hypertension) ([facility]) I27.21 Chronic systolic heart failure ([facility]) I50.22 Hyperkalemia E87.5 HFrEF (heart failure with reduced ejection fraction) ([facility]) I50.20 Metabolic acidosis E87.2 ISA (acute kidney injury) ([facility]) N17.9 Acute pain of left shoulder M25.512 Debility R53.81 Isolation/Infection: Isolation No Isolation Patient Infection Status Infection Onset Added Last Indicated Last Indicated By Review Planned Expiration Resolved Resolved By COVID-19 Rule Out 10/21/20 10/21/20 10/21/20 Respiratory Panel, Molecular, with COVID-19 (Restricted: peds pts or suitable admitted adults) (Ordered) 10/28/20 11/04/20 Nurse Assessment: Last Vital Signs: BP 113/83 Pulse 77 Temp 98.5 F (36.9 C) (Temporal) Resp 20 Ht 4' 11 (1.499 m) Wt 196 lb 12.8 oz (89.3 kg) SpO2 92% BMI 39.75 kg/m Last documented pain score (0-10 scale): Pain Level: 0 Last Weight: Wt Readings from Last 1 Encounters: 10/21/20 196 lb 12.8 oz (89.3 kg) Mental Status: oriented IV Access: - None Nursing Mobility/ADLs: Walking Assisted Transfer Assisted Bathing Assisted Dressing Assisted Toileting Assisted Feeding Independent Customer Advisor Independent Med Delivery whole and 1 pill at a time Wound Care Documentation and Therapy: Elimination: Continence: Bowel: Yes Bladder: No Urinary Catheter: None Colostomy/Ileostomy/Ileal Conduit: No Date of Last BM: 10/20/2020 Intake/Output Summary (Last 24 hours) at 10/21/2020 1030 Last data filed at 10/21/2020 0818 Gross per 24 hour Intake 500 ml Output 380 ml Net 120 ml I/O last 3 completed shifts: In: 320 [P.O.:320] Out: 380 [Urine:380] Safety Concerns: At Risk for Falls Impairments/Disabilities: None Nutrition Therapy: Current Nutrition Therapy: - Oral Diet: Carb Control 4 carbs/meal (1800kcals/day) and Renal Routes of Feeding: Oral Liquids: No Restrictions Daily Fluid Restriction: no Last Modified Barium Swallow with Video (Video Swallowing Test): not done Treatments at the Time of Hospital Discharge: Respiratory Treatments: Oxygen Therapy: is not on home oxygen therapy. Ventilator: - No ventilator support Rehab Therapies: Physical Therapy and Occupational Therapy Weight Bearing Status/Restrictions: No weight bearing restirctions Other Medical Equipment (for information only, NOT a DME order): rollator walker Other Treatments: Patient's personal belongings (please select all that are sent with patient): Dentures partials upper and lower, clothes, cell phone, rollator walker RN SIGNATURE: CASE MANAGEMENT/SOCIAL WORK SECTION Inpatient Status Date: Readmission Risk Assessment Score: Readmission Risk Risk of Unplanned Readmission: 16 Discharging to Facility/ Agency Name: [place] Address: [facility] D[facility] Facility (if applicable) Name: Address: Dialysis Schedule: Phone: Fax: [employer] Lab[employer]/Post Framer signature: PHYSICIAN SECTION Prognosis: Good Condition at Discharge: Stable Rehab Potential (if transferring to Rehab): Good Recommended Labs or Other Treatments After Discharge: CBC and BMP in 3 days Physician Certification: I certify the above information and transfer of Halle Patel is necessary for the continuing treatment of the diagnosis listed and that she requires Snf Facility for 30 days. Update Admission H&P: No change in H&P PHYSICIAN SIGNATURE: * Additional Instructions* Bj Castillo DO - 10/21/2020 GENERAL SIGNS AND SYMPTOMS GREEN ZONE: All Clear- Your Symptoms Are Under Control No recurrence of symptoms that led to hospitalization Able to do usual activities No fever No chest pain No shortness of breath This Means You Should: Continue taking your medications as prescribed Continue activity as tolerated Keep all doctor appointments YELLOW ZONE: Caution as Your Health may be Worsening Recurrence of symptoms that led to hospitalization Fever of 100 degrees or higher Increased fatigue or restlessness Intolerant side-effects of medications Uneasy feeling or that something is wrong This Means You Should: Call your doctor for further instructions RED ZONE: Medical Alert Severe or unrelieved shortness of breath at rest Unrelieved chest pain Confusion or you can't think clearly This Means You Should Call 911 Immediately documented in this encounter Hospital Course * Bj CastilloDO - 10/22/2020 8:33 AM EST Hospitalist Discharge Summary Halle Patel : 1935 Admit date: 10/15/2020 Discharge date: 10/22/2020 Admitting Physician: Lourdes Manuel MD Primary Care Physician: Kirby Dukes DO Visit Status: Admission Code Status: Full Code <<Discharge did not occur due to bed availability at facility. Should have a bed today. Patient also hypokalemic so will replace prior to discharge>> Discharge Diagnoses: 1. Acute Severe Hyperkalemia - Resolved 2. Hyponatremia - Resolved 3. ISA 2/2 ATN (NSAIDs, SCOOBY, hypotension) 4. NAGMA - Resolved 5. Acute Respiratory Insufficiency s/s COPD - On room air 6. COPD 7. E.coli UTI 8. Anemia -Stable 9. Left arm pain/ swelling 10. HTN 11. HFrEF 12. DM II 13. Obesity Diagnosis Date Allergic rhinitis Asthma Colon cancer screening 06/2019 neg Cologuard COPD (chronic obstructive pulmonary disease) ([facility]) 2011 Mild per PFTs- exsmoker since 1993 DDD (degenerative disc disease), cervical Diastolic heart failure (HCC) 03/2020 EF 35 %- Supriya consult DVT (deep venous thrombosis) ([facility]) 06/2011 and PE post op oophorectomy Eczema Ex-smoker 1993 Gallstones 2010 asymptomatic H/O colonoscopy with polypectomy 2013 Dr. 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 PAH (pulmonary artery hypertension) (HCC) 03/2020 workup pnd Renal cyst Type 2 diabetes mellitus (HCC) 2010 diet controlled till 2014, DR TREJO Procedures: UE US, CT(abd,pelvis) Hospital Course: 85 year old female who was sent to ER for abnormal labs of K+ (8.2) and creatinine(2.65). Found to be hypotensive, hyperkalemic, and renal insufficiency. Admitted to ICU level of care. Stabilized and transferred to hospitalist service. Therapy recommended post acute care facility at discharge. See medication adjustments below in med rec.The patient is discharged in improved and stable condition. Consults: IP CONSULT TO NEPHROLOGY IP CONSULT TO PALLIATIVE CARE IP CONSULT TO HEM/ONC IP CONSULT TO CARDIOLOGY Discharge Instructions: Diet: DIET RENAL; Carb Control: 4 carb choices (60 gms)/meal Activity: as tolerated Recommended Outpatient Tests: repeat CBC and BMP in 3 days Disposition: Patient discharged in stable condition to SNF. Greater than 30 minutes spent discharging the patient and coming up with patient discharge plan. Vitals: BP (!) 148/58 Pulse 65 Temp 96.7 F (35.9 C) (Temporal) Resp 18 Ht 4' 11 (1.499 m) Wt 193 lb 9 oz (87.8 kg) SpO2 96% BMI 39.10 kg/m Pulse Ox: SpO2 Av.4 % Min: 95 % Max: 96 % Supplemental O2: General appearance: No apparent distress, appears stated age and cooperative with exam HEENT: Normal cephalic, atraumatic without obvious deformity. Pupils equal, round, and reactive to light. Extra ocular muscles intact. Conjunctivae/corneas clear. Neck: Supple, with full range of motion. No jugular venous distention. Trachea midline. No lymphadenopathy. Respiratory: Normal respiratory effort. Clear to auscultation, bilaterally without Rales/Wheezes/Rhonchi. Cardiovascular: Regular rate and rhythm with normal S1/S2 without murmurs, rubs or gallops. Abdomen: Soft, non-tender, non-distended with normal bowel sounds. No rebound or guarding. Musculoskeletal: No clubbing, cyanosis or edema bilaterally. Full range of motion without deformity. Skin: Skin color, texture, turgor normal. No rashes or lesions. Neurologic: Neurovascularly intact without any focal sensory/motor deficits. Cranial nerves: II-XIIintact, grossly non-focal. Discharge Medications: Halle Patel Home Medication Instructions RANDY:[id number] Printed on:10/22/20 0763 Medication Information albuterol sulfate HFA (PROVENTIL HFA) 108 (90 Base) MCG/ACT inhaler Inhale 2 puffs into the lungs every 6 hours as needed for Wheezing carvedilol (COREG) 6.25 MG tablet Take 1 tablet by mouth 2 times daily for 180 doses cetirizine (ZYRTEC) 10 MG tablet Take 10 mg by mouth daily Cholecalciferol (VITAMIN D-3 PO) Take 2,000 Units by mouth daily CRANBERRY FRUIT CONCENTRATE PO Take 4,200 mg by mouth daily enalapril (VASOTEC) 20 MG tablet take 1 tablet by mouth twice a day epoetin dave-epbx (RETACRIT) 68444 UNIT/ML SOLN injection Inject 1 mL into the skin every 7 days fluticasone (FLOVENT HFA) 44 MCG/ACT inhaler Inhale 2 puffs into the lungs 2 times daily furosemide (LASIX) 40 MG tablet Take 1 tablet by mouth daily Handicap Placard MISC by Does not apply route DX: knee osteoarthritis Duration: 5 years ipratropium-albuterol (DUONEB) 0.5-2.5 (3) MG/3ML SOLN nebulizer solution Inhale 3 mLs into the lungs every 4 hours as needed for Shortness of Breath Multiple Vitamin (MULTI-DAY VITAMINS PO) Take by mouth daily potassium chloride (KLOR-CON M) 20 MEQ extended release tablet Take 1 tablet by mouth daily (with breakfast) Recommended Follow-up: Alysia Don, ARPAN - MANAGER OF CORPORATE [address] [facility] [id number] Go on 11/04/2020 cardiology follow-up at 9:45am Kirby Dukes DO [address] [place] [id number] In 1 week post hospital fu appt Shay Hsu MD [address] [place] [phone] Schedule an appointment as soon as possible for a visit in 3 weeks Acute kidney failure and high potassium CM [place] [address] [place] [phone] Readmission Risk Risk of Unplanned Readmission: 16 Complexity of Follow up: [] Moderate Complexity: follow up within 7-14 calendar days (22525) [x] Severe Complexity: follow up within 7 calendar days (67448) Follow up Testing, Pending results or Referrals at Transitional Care Visit: [x] yes [] no Instructions to MA: Please call patient on day after discharge (must document patient contacted within 2 business days of discharge). Follow up questions for MA: 1. Did you get medications filled and taking them as instructed from discharge? 2. Are you following your discharge instructions from your hospital stay? 3. Please confirm patient is scheduled for a follow up appointment within the above time frame. Signed: Bj Castillo DO Division of Hospitalist Medicine Inpatient Medical Services 10/22/2020, 8:33 AM * Bj Castillo DO - 10/21/2020 10:31 AM EST Hospitalist Discharge Summary Halle Patel : 1935 Admit date: 10/15/2020 Discharge date: 10/21/2020 Admitting Physician: Lourdes Manuel MD Primary Care Physician: Kirby Dukes DO Visit Status: Admission Code Status: Full Code Discharge Diagnoses: 1. Acute Severe Hyperkalemia - Resolved 2. Hyponatremia - Resolved 3. ISA 2/2 ATN (NSAIDs, SCOOBY, hypotension) 4. NAGMA - Resolved 5. Acute Respiratory Insufficiency s/s COPD - On room air 6. COPD 7. E.coli UTI 8. Anemia -Stable 9. Left arm pain/ swelling 10. HTN 11. HFrEF 12. DM II 13. Obesity Diagnosis Date Allergic rhinitis Asthma Colon cancer screening 06/2019 neg Cologuard COPD (chronic obstructive pulmonary disease) (HCC) 2011 Mild per PFTs- exsmoker since 1993 DDD (degenerative disc disease), cervical Diastolic heart failure (HCC) 03/2020 EF 35 %- Supriya consult DVT (deep venous thrombosis) ([facility]) 06/2011 and PE post op oophorectomy Eczema Ex-smoker 1993 Gallstones 2010 asymptomatic H/O colonoscopy with polypectomy 2013 Dr. 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 PAH (pulmonary artery hypertension) ([facility]) 03/2020 workup pnd Renal cyst Type 2 diabetes mellitus ([facility]) 2010 diet controlled till 2014, DR TREJO Procedures: UE US, CT(abd,pelvis) Hospital Course: 85 year old female who was sent to ER for abnormal labs of K+ (8.2) and creatinine(2.65). Found to be hypotensive, hyperkalemic, and renal insufficiency. Admitted to ICU level of care. Stabilized and transferred to hospitalist service. Therapy recommended post acute care facility at discharge. See medication adjustments below in med rec.The patient is discharged in improved and stable condition. Consults: IP CONSULT TO NEPHROLOGY IP CONSULT TO PALLIATIVE CARE IP CONSULT TO HEM/ONC IP CONSULT TO CARDIOLOGY Discharge Instructions: Diet: DIET RENAL; Carb Control: 4 carb choices (60 gms)/meal Activity: as tolerated Recommended Outpatient Tests: repeat CBC and BMP in 3 days Disposition: Patient discharged in stable condition to SNF. Greater than 30 minutes spent discharging the patient and coming up with patient discharge plan. Vitals: BP 113/83 Pulse 77 Temp 98.5 F (36.9 C) (Temporal) Resp 20 Ht 4' 11 (1.499 m) Wt196 lb 12.8 oz (89.3 kg) SpO2 92% BMI 39.75 kg/m Pulse Ox: SpO2 Av.9 % Min: 90 % Max: 97 % Supplemental O2: General appearance: No apparent distress, appears stated age and cooperative with exam HEENT: Normal cephalic, atraumatic without obvious deformity. Pupils equal, round, and reactive to light. Extra ocular muscles intact. Conjunctivae/corneas clear. Neck: Supple, with full range of motion. No jugular venous distention. Trachea midline. No lymphadenopathy. Respiratory: Normal respiratory effort. Clear to auscultation, bilaterally without Rales/Wheezes/Rhonchi. Cardiovascular: Regular rate and rhythm with normal S1/S2 without murmurs, rubs or gallops. Abdomen: Soft, non-tender, non-distended with normal bowel sounds. No rebound or guarding. Musculoskeletal: No clubbing, cyanosis or edema bilaterally. Full range of motion without deformity. Skin: Skin color, texture, turgor normal. No rashes or lesions. Neurologic: Neurovascularly intact without any focal sensory/motor deficits. Cranial nerves: II-XIIintact, grossly non-focal. Discharge Medications: Halle Patel Home Medication Instructions RANDY:[id number] Printed on:10/21/20 1031 Medication Information albuterol sulfate HFA (PROVENTIL HFA) 108 (90 Base) MCG/ACT inhaler Inhale 2 puffs into the lungs every 6 hours as needed for Wheezing carvedilol (COREG) 6.25 MG tablet Take 1 tablet by mouth 2 times daily for 180 doses cetirizine (ZYRTEC) 10 MG tablet Take 10 mg by mouth daily Cholecalciferol (VITAMIN D-3 PO) Take 2,000 Units by mouth daily CRANBERRY FRUIT CONCENTRATE PO Take 4,200 mg by mouth daily enalapril (VASOTEC) 20 MG tablet take 1 tablet by mouth twice a day epoetin dave-epbx (RETACRIT) 66428 UNIT/ML SOLN injection Inject 1 mL into the skin every 7 days fluticasone (FLOVENT HFA) 44 MCG/ACT inhaler Inhale 2 puffs into the lungs 2 times daily furosemide (LASIX) 40 MG tablet Take 1 tablet by mouth daily Handicap Placard MISC by Does not apply route DX: knee osteoarthritis Duration: 5 years ipratropium-albuterol (DUONEB) 0.5-2.5 (3) MG/3ML SOLN nebulizer solution Inhale 3 mLs into the lungs every 4 hours as needed for Shortness of Breath Multiple Vitamin (MULTI-DAY VITAMINS PO) Take by mouth daily Recommended Follow-up: Alysia Don, COURT REPORTER - MANAGER OF CORPORATE [address] [facility] [phone] Go on 11/04/2020 cardiology follow-up at 9:45am Kirby Dukes DO [address] [place] [address] In 1 week post hospital fu appt Readmission Risk Risk of Unplanned Readmission: 16 Complexity of Follow up: [] Moderate Complexity: follow up within 7-14 calendar days (22404) [x] Severe Complexity: follow up within 7 calendar days (09557) Follow up Testing, Pending results or Referrals at Transitional Care Visit: [x] yes [] no Instructions to MA: Please call patient on day after discharge (must document patient contacted within 2 business days of discharge). Follow up questions for MA: 1. Did you get medications filled and taking them as instructed from discharge? 2. Are you following your discharge instructions from your hospital stay? 3. Please confirm patient is scheduled for a follow up appointment within the above time frame. Signed: Bj Castillo DO [facility] Medical [facility] 10/21/2020, 10:31 AM documented in this encounter History of Present Illness * Horacio Soto RN - 10/22/2020 1:07 PM EST Report given to Aimee Melgar * Danelle Shay APRN - [facility] - 10/22/2020 11:46 AM EST CARDIOLOGY PROGRESS NOTE Chart and interval events reviewed. Reason for Visit HFrEF- f/u SUBJECTIVE: Halle Patel states feeling OK. She is sleepy but answers questions appropriately. She has no present complaints. She is awaiting a rehabilitation bed for discharge. SCHEDULED MEDICATIONS: enalapril 20 mg Oral BID potassium chloride 20 mEq Oral Daily with breakfast furosemide 40 mg Oral Daily carvedilol 6.25 mg Oral BID WC sodium chloride flush 10 mL Intravenous 2 times per day heparin (porcine) 5,000 Units Subcutaneous 3 times per day sodium chloride flush 10 mL Intracatheter Q8H epoetin dave-epbx 40,000 Units Subcutaneous Q7 Days polyethylene glycol 17 g Oral Daily insulin lispro 0-6 Units Subcutaneous TID WC ipratropium-albuterol 1 ampule Inhalation BID Active Problems: Hypertension Type 2 diabetes mellitus (HCC) Hyperkalemia HFrEF (heart failure with reduced ejection fraction) (HCC) Metabolic acidosis ISA (acute kidney injury) (HCC) Acute pain of left shoulder Debility Resolved Problems: * No resolved hospital problems. * Review of Systems: Review of Systems Constitutional: Negative for chills, diaphoresis and fever. Pt sleepy but appropriate, she is awaiting a Rehab bed for DC, appears deconditioned Respiratory: Negative for cough, shortness of breath and wheezing. Denies shortness of breath Cardiovascular: Negative for chest pain, palpitations and leg swelling. Denies chest pain or palpitations Gastrointestinal: Negative for abdominal distention, abdominal pain, blood in stool, constipation, diarrhea, nausea and vomiting. Genitourinary: Negative for hematuria. Neurological: Negative for dizziness and syncope. Denies dizziness or lightheadedness VITAL SIGNS: Vitals: 10/21/20 2317 10/22/20 0319 10/22/20 0741 10/22/20 1125 BP: (!) 149/74 (!) 150/75 (!) 148/58 (!) 172/86 Pulse: 70 64 65 65 Resp: 22 18 18 20 Temp: 97.1 F (36.2 C) 97.2 F (36.2 C) 96.7 F (35.9 C) 97.1 F (36.2 C) TempSrc: Temporal Temporal Temporal Temporal SpO2: 95% 96% 96% 98% Weight: 193 lb 9 oz (87.8 kg) Height: Intake/Output Summary (Last 24 hours) at 10/22/2020 1146 Last data filed at 10/22/2020 1036 Gross per 24 hour Intake 430 ml Output Net 430 ml Patient Vitals for the past 96 hrs (Last 3 readings): Weight 10/22/20 0319 193 lb 9 oz (87.8 kg) 10/21/20 0353 196 lb 12.8 oz (89.3 kg) 10/20/20 0436 196 lb 4.8 oz (89 kg) Physical Exam: Physical Exam Constitutional: General: She is not in acute distress. Appearance: Normal appearance. She is well-developed. She is not diaphoretic. Comments: Appears compensated HENT: Mouth/Throat: Pharynx: No oropharyngeal exudate. Eyes: General: No scleral icterus. Right eye: No discharge. Left eye: No discharge. Neck: Thyroid: No thyromegaly. Vascular: No JVD. Cardiovascular: Rate and Rhythm: Normal rate and regular rhythm. Chest Wall: PMI is not displaced. Pulses: Normal pulses. Heart sounds: Normal heart sounds. No murmur. No gallop. Comments: Regular, heart tones distant, no murmurs detected on exam Pulmonary: Effort: No accessory muscle usage or respiratory distress. Breath sounds: Normal breath sounds. Comments: Diminished anteriorly, clear Abdominal: General: Bowel sounds are normal. There is no distension or abdominal bruit. Palpations: Abdomen is soft. There is no shifting dullness or hepatomegaly. Tenderness: There is no abdominal tenderness. Comments: Obese, nondistended Musculoskeletal: Normal range of motion. Comments: Bilateral lower extremities are nonedematous Skin: General: Skin is warm and dry. Neurological: Mental Status: She is alert and oriented to person, place, and time. Data: Scheduled Meds: Reviewed Continuous Infusions: dextrose CBC: Recent Labs 10/21/20 0418 10/22/20 0452 WBC 14.4* 11.8* HGB 8.8* 8.4* HCT 26.1* 25.0* PLT 336 290 BMP: Recent Labs 10/21/20 0418 10/22/20 0452 NA 135 135 K 3.6 3.3* CL 99 101 CO2 31* 31* BUN 12 13 CREATININE 0.98 1.06 INR:No results for input(s): INR in the last 72 hours. No results for input(s): BNP in the last 72 hours. TSH: Lab Results Component Value Date TSH 2.501 10/17/2020 Cardiac Injury Profile: No results for input(s): CKTOTAL, CKMB, TROPONINI in the last 72 hours. Lipid Profile: Lab Results Component Value Date TRIG 108 06/23/2017 HDL 72 06/23/2017 CHOL 215 06/23/2017 EKG: See Report Telemetry Reviewed: SR- 61 Last Echo: 04/08/2020- SUMMARY: 1. Procedure narrative: Image quality was suboptimal. The study was technically limited due to body habitus and respiratory interference. Intravenous imaging enhancement (Definity) was administered to opacify the chamber and enhance Doppler signals. 2. Left ventricle: Systolic function is moderately decreased by visual assessment. The estimated ejection fraction is 35%. There are no regional wall motion abnormalities. Features are consistent with a pseudonormal left ventricular filling pattern, with concomitant abnormal relaxation and increased filling pressure (grade 2 diastolic dysfunction). 3. Right ventricle: The RV pressure during systole by Doppler is 53 mm Hg. 4. Left atrium: The atrium is mildly dilated. 5. Right atrium: Central venous pressure (est): 8 mm Hg. 6. Signs of increased volume and pulmonary hypertension and elevated left sided filling pressures. IMPRESSIONS/RECOMMENDATIONS: 1. HFrEF, uncertain etiology, EF 25-35%. Stage C, Class II. Euvolemic - Will continue present GDMT including Coreg 6.25 mg twice daily and lasix 40 mg daily - will remain off Aldactone, may consider starting in the outpatient setting - pt will continue to be encouraged regarding daily weights and how to recognize early s/s of heartfailure 2. ISA with hyperkalemia 2/2 ACEi, spironolactone, diuretics and NSAID use-improved - Creatinine 1.06 today - Peak Creatinine while admitted- 2.65 - will remain off aldactone for now as stated above - to remain off NSAIDS indefinitely - potassium now normal 3. HTN- Well controlled -labile at times, will continue to monitor outpatient 4. Disp- OK to DC from a Cardiac standpoint- f/u has been arranged Electronicallysigned by ARPAN Ceron CNP on 10/22/2020 at 11:46 AM * Alexander Baugh DTR - 10/22/2020 7:41 AM EST Nutrition update completed. Pt doing well with meals, continue to follow. * Raya Salmon OTA - 10/21/2020 2:52 PM EST Occupational Therapy Facility/Department: [facility] 2E TELEMETRY Daily Treatment Note NAME: Halle Patel : 1935 Date of Service: 10/21/2020 Discharge Recommendations: Subacute/Snf Facility Assessment Performance deficits / Impairments: Decreased functional mobility ;Decreased balance;Decreased safeawareness;Decreased ADL status;Decreased endurance;Decreased strength Assessment: Pt is progressing with her transfers, toileting and ADL goals. Pt declined attempting AE for LE dressing to increase independence since she has assist at home. Pt unsteady in standing andhad difficulty releasing the FWW for LE dressing and toileting tasks. Pt is expected to benefit from continued OT to increase strength and activity tolerance for ADL and transfer independence. Treatment Diagnosis: renal failure OT Education: OT Role;Plan of Care;Transfer Training;Equipment;ADL Adaptive Strategies Barriers to Learning: none. REQUIRES OT FOLLOW UP: Yes Activity Tolerance Activity Tolerance: Patient limited by fatigue Safety Devices Safety Devices in place: Yes Type of devices: All fall risk precautions in place;Gait belt;Patient at risk for falls;Call light within reach;Left in bed;Nurse notified Patient Diagnosis(es): The primary encounter diagnosis was Hyperkalemia. A diagnosis of Renal insufficiency was also pertinent to this visit. has a past medical history of Allergic rhinitis, Asthma, Colon cancer screening, COPD (chronic obstructive pulmonary disease) ([facility]), DDD (degenerative disc disease), cervical, Diastolic heart failure(HCC), DVT (deep venous thrombosis) ([facility]), Eczema, Ex-smoker, Gallstones, H/O colonoscopy with polypectomy, HFrEF (heart failure with reduced ejection fraction) ([facility]), History of ovarian cyst, Hypertension, Osteoarthritis, PAH (pulmonary artery hypertension) (HCC), Renal cyst, and Type 2 diabetes mellitus (HCC). has a past surgical history that includes Tonsillectomy; Appendectomy; Breast surgery (Left, 1979);Colonoscopy (12/2013); Hysterectomy, total abdominal (1986); Bunionectomy (Bilateral, 1993); laparotomy (2010); and laparotomy (2011). Restrictions Restrictions/Precautions Restrictions/Precautions: General Precautions, Fall Risk Required Braces or Orthoses?: No Subjective General Chart Reviewed: Yes Patient assessed for rehabilitation services?: Yes Family / Caregiver Present: No Subjective Subjective: Pt awake in bed and agreeable to OT. Pt states that she has belly pain that comes and goes . General Comment Comments: Nursing reports OK to treat. Pain Assessment Pain Assessment: 0-10 Pain Level: 2 Pain Type: Acute pain;Chronic pain Pain Location: Abdomen Pain Orientation: Lower Non-Pharmaceutical Pain Intervention(s): Ambulation/Increased Activity;Repositioned(once standing pt passed gas which relieved some of her pain) Response to Pain Intervention: Patient Satisfied Vital Signs Patient Currently in Pain: Yes Objective ADL UE Dressing: Minimal assistance(to doff/don gown while seated on BSC.) LE Dressing: Maximum assistance(to doff/don Depends. Pt unable to release the FWW to manage pants over hips and unable to reach her feet. Pt decline AE because she has help at home) Toileting: Maximum assistance(for clothing management and hygiene) Additional Comments: Pt able to stand to FWW with min assist during LE dressing and toileting taskstoday. However, pt unable to release the FWW to pull pants over hips or for toilet hygiene in standing for fear of falling and LOB. Pt has difficulty reaching her feet with pants and declined using AE as or aide assists at home. Pt fatigued easily with basic toileting today. Balance Sitting Balance: Supervision Standing Balance: Minimal assistance Standing Balance Time: 1-2 minutes Activity: LE ADLs, toileting tasks, marching in place Comment: Pt stood EOB and completed 5 shuffling marching steps with very little floor clearance with L>R. Pt unsteady in standing with each step. Pt also attempted to don pants and complete toilethygiene in standing without success. Pt unable to release the FWW for fear of falling and LOB Toilet Transfers Toilet - Technique: Stand step Equipment Used: Standard bedside commode Toilet Transfer: Minimal assistance Toilet Transfers Comments: Pt cued for hand placement with all transfers and required min assist torise from the bed and BSC to complete the transfer with FWW. Pt moved slowly with shuffling steps. Pt very unsteady Bed mobility Supine to Sit: Moderate assistance(to move BLE off the bed and to raise her trunk from the bed.) Sit to Supine: Moderate assistance(to raise BLE onto the bed) Scooting: Moderate assistance Comment: Pt denied dizziness with bed mobility and required cues for technique. Transfers Stand Step Transfers: Minimal assistance Sit to stand: Minimal assistance Stand to sit: Minimal assistance Transfer Comments: with FWW Plan Plan Specific instructions for Next Treatment: Address AE for LB dressing to improve independence. Current Treatment Recommendations: Safety Education & Training, Balance Training, Patient/Caregiver Education & Training, Self-Care / ADL, Functional Mobility Training, Endurance Training, Equipment Evaluation, Education, & procurement Plan Comment: POC and goals created in collaboration with pt. Goals Short term goals Time Frame for Short term goals: 4 visits Short term goal 1: Pt will perform functional mobility and transfers with CGA and FWW. Progressing Short term goal 2: Pt will perform bed mobility with Mod I. Progressing Short term goal 3: Pt will tolerate > 15 minutes of EOB activity. Not attempted today Short term goal 4: Pt will perform UB ADLs and self-care with Mod I. Not attempted today Short term goal 5: Pt will perform LB ADLs using AE as necessary with Mod I. Progressing Short term goal 6: Pt will perform toileting with Mod I. Progressing Short term goal 7: Pt will tolerate > 4 minutes of standing during functional activity. Progressing Patient Goals Patient goals : to get more independent Therapy Time Individual Concurrent Group Co-treatment Time In 1400 Time Out 1435 Minutes 35 Timed Code Treatment Minutes: 30 Minutes(2x ADL) SHERIDAN [place] * Evangelista Sue Jr., MD - 10/21/2020 1:42 PM EST Patient seen and chart reviewed. No bleed or thrombosis. Remains afebrile. Baseline mentation. Examotherwise stable X 5 systems. Hgb increased to 8.8 WBC 14.4 K ANC 11,700 Platelets 336 K Creatinine0.98 GFR 53 cc/min. K + 3.6 Ongoing arrangements for ECF, hopefully, completed today. Will give 2nddose of Venofer today. Discussed with patient and rn staffing. Total visit time > 35 minutes. * Shay Hsu MD - 10/21/2020 12:44 PM EST [facility] Progress Note Subjective/ 85 y.o. year old female who we are seeing in consultation for ISA. Made good urine. NAEON Some SOB +. Denies any new issues. ROS otherwise negative. No change in pfsh. Objective/ Vitals: 10/21/20 0315 10/21/20 0353 10/21/20 0725 10/21/20 1137 BP: 125/82 113/83 (!) 145/73 Pulse: 76 77 74 Resp: 18 24 Temp: 96.1 F (35.6 C) 98.5 F (36.9 C) 97.1 F (36.2 C) TempSrc: Temporal Temporal Temporal SpO2: 90% 92% 95% Weight: 196 lb 12.8 oz (89.3 kg) Height: 24HR INTAKE/OUTPUT: Intake/Output Summary (Last 24 hours) at 10/21/2020 1244 Last data filed at 10/21/2020 0818 Gross per 24 hour Intake 500 ml Output 380 ml Net 120 ml Constitutional: Alert, awake, no apparent distress Head: AT NC Neck: No JVD, no thyromegaly Cardiovascular: S1, S2 without m/r/g Respiratory: Reduced BS at b/l bases posteriorly, no wheezing Abdomen: soft, nt Ext: 1+ b/l LE edema, no tremor. Current Facility-Administered Medications Medication Dose Route Frequency Provider Last Rate Last Admin enalapril (VASOTEC) tablet 20 mg 20 mg Oral BID Lissette Baer PA-C 20 mg at 10/21/20 0751 potassium chloride (KLOR-CON M) extended release tablet 20 mEq 20 mEq Oral Daily with breakfast Shay Hsu MD 20 mEq at 10/21/20 0752 furosemide (LASIX) tablet 40 mg 40 mg Oral Daily Shay Hsu MD 40 mg at 10/21/20 0953 carvedilol (COREG) tablet 6.25 mg 6.25 mg Oral BID Amari Melvin, DO 6.25 mg at 10/21/20 0752 glucose (GLUTOSE) 40 % oral gel 15 g 15 g Oral PRN Bren Acierno, COURT REPORTER - MANAGER OF CORPORATE dextrose 50 % IV solution 12.5 g Intravenous PRN Bren Acierno, COURT REPORTER - MANAGER OF CORPORATE glucagon (rDNA) injection 1 mg 1 mg Intramuscular PRN Bren Acierno, COURT REPORTER - MANAGER OF CORPORATE dextrose 5 % solution 100 mL/hr Intravenous PRN Bren Acierno, COURT REPORTER - MANAGER OF CORPORATE sodium chloride flush 0.9 % injection 10 mL 10 mL Intravenous 2 times per day Bren Acierno, COURT REPORTER -MANAGER OF CORPORATE 10 mL at 10/21/20 0751 sodium chloride flush 0.9 % injection 10 mL 10 mL Intravenous PRN Bren Acierno, COURT REPORTER - MANAGER OF CORPORATE heparin (porcine) injection 5,000 Units 5,000 Units Subcutaneous 3 times per day Bren Jose COURT REPORTER - MANAGER OF CORPORATE 5,000 Units at 10/21/20 0549 albuterol (PROVENTIL) nebulizer solution 2.5 mg 2.5 mg Nebulization Q6H PRN Bren Acierno, COURT REPORTER - MANAGER OF CORPORATE sodium chloride flush 0.9 % injection 10 mL 10 mL Intracatheter Q8H Bren Acierno, COURT REPORTER - MANAGER OF CORPORATE 10 mLat 10/21/20 0935 sodium chloride flush 0.9 % injection 10 mL 10 mL Intracatheter PRN Bren Aciertrang, COURT REPORTER - MANAGER OF CORPORATE epoetin dave-epbx (RETACRIT) injection 40,000 Units 40,000 Units Subcutaneous Q7 Days Bren Jose COURT REPORTER - MANAGER OF CORPORATE 40,000 Units at 10/16/20 1342 polyethylene glycol (GLYCOLAX) packet 17 g 17 g Oral Daily Bren Jose, COURT REPORTER - MANAGER OF CORPORATE 17 g at 10/21/20 0753 insulin lispro (HUMALOG) injection vial 0-6 Units 0-6 Units Subcutaneous TID WC Bren Garcia COURT REPORTER- MANAGER OF CORPORATE 1 Units at 10/20/20 1328 ipratropium-albuterol (DUONEB) nebulizer solution 1 ampule 1 ampule Inhalation Q4H PRN Bren Acdwain COURT REPORTER - MANAGER OF CORPORATE ipratropium-albuterol (DUONEB) nebulizer solution 1 ampule 1 ampule Inhalation BID Bren Jose COURT REPORTER - MANAGER OF CORPORATE 1 ampule at 10/20/20 2333 dextrose Data/ Recent Labs 10/19/20 0337 10/20/20 0412 10/21/20 0418 WBC 11.5* 14.8* 14.4* HGB 8.6* 8.6* 8.8* HCT 25.6* 26.1* 26.1* MCV 89.3 89.4 89.4 PLT 316 312 336 Recent Labs 10/19/20 0337 10/19/20 1715 10/20/20 0412 10/21/20 0418 NA 136 136 134* 135 K 3.3* 3.7 3.3* 3.6 CL 101 100 100 99 CO2 32* 28 28 31* GLUCOSE 129* 124* 133* 136* MG 1.5* -- 1.4* 1.3* BUN 26* 19 15 12 CREATININE 1.15 1.08 1.03 0.98 Assessment/ 1. Acute severe hyperkalemia. 2. ISA 2/2 ATN (hypotension, nsaids, scooby, diuresis) 3. NAGMA 4. 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 Hyponatremia- improving. 6. Obesity BMI 36 7. Bradycardia. 8. Anemia. Plan/ Cr stable. C/w lasix Lasix should keep hyperkalemia in check. Needs to be avoiding nsaids (indefinitely) and be cautiouswith K supplementation. Eventually may start spironolactone as well. May need reduction in lasix to 20mg qday when spironolactone eventually started. Okay to use additional diuretic prn (I/V lasix 40mg prn) for resp distress if needed here. Complicated MDM. No hydronephrosis on CT abd/pelvis. Will follow Okay to discharge from renal standpoint. Shay Hsu MD [facility] * Rachel Menon APRN - MANAGER OF CORPORATE - 10/21/2020 11:27 AM EST Palliative Progress Note Chief Complaint: Halle Patel is a 85 y.o. female who was sent in for abnormal labs of K and creatinine. Assessment/Plan Assessment/Plan Goals of care Pt is alert and oriented and able to make her own medical decisions Pt has chosen to remain a full code - potential complications have been explained to pt Pt has chosen to go to a facility for additional therapy needs. Abnormal electrolytes - resolved Hyperkalemia 8.0, Hyponatremia 130 Management per primary and nephrology Anemia Pt is [employer] and does not want to have any blood products Hematology following ISA - resolved 10-16 CT abd showed no contour abnormality or renal lesion, no calculi, hydronephrosis or ureteral dilation Avoid nephrotoxic medication Keep MAP >65 Nephrology following Left shoulder pain XR shoulder was negative for osseous abnormality. 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 HFrEF 03/2020 ECHO showed EF 35% Management per HICU At risk for constipation Pt has a history of constipation at home, using MIralax daily Debility Pt uses walker and wheelchair at home PT/OT following Pt to dc to SNF Palliative Care Encounter Full code -per pt and spouse Explained palliative medicine and its philosophy as well as the differences with palliative and hospice services Ongoing counseling of patient and family regarding diagnoses of heart failure , Determining prognosis in serious illness of heart failure COVID-19 Risk Screening Tool: Has patient been tested for COVID-19 this admission? no Is the patient admitted from a nursing facility? no Has the patient been in close contact with a COVID-19 positive patient? unknown COVID-19 ROS: Fever no Cough no Shortness of Breath no Myalgia no Loss of Taste/Smell no Diarrhea/GI Symptoms no If yes, to any of the above questions and patient has not had a negative test this admission consider COVID-19 testing. Active Hospital Problems Diagnosis Date Noted Hyperkalemia [E87.5] 10/16/2020 HFrEF (heart failure with reduced ejection fraction) ([facility]) [I50.20] 10/16/2020 Metabolic acidosis [E87.2] 10/16/2020 ISA (acute kidney injury) ([facility]) [N17.9] 10/16/2020 Acute pain of left shoulder [M25.512] 10/16/2020 Debility [R53.81] 10/16/2020 Hypertension [I10] Type 2 diabetes mellitus (HCC) [E11.9] 10/17/2010 Greater than 51% of time spent, total 35 minutes in counseling and coordination of care at the bedside and calls to spouse and daughter x2 each regarding Goals of Care and See Above Discharge planning: SNF Patient meets criteria for general inpatient hospice care including the following: N/A- Palliative Care Patient Referrals to: none today Discussed patient and the plan of care with the other IDT membersof Palliative Care, and with Patient and Floor Nurse I have discussed the patient's case and plan of care with my collaborating physician Dr. Kendrick Subjective: Brief History 85 year old female who was sent to ER for abnormal labs of K+ (8.2) and creatinine(2.65). She has been having weakness, nausea and fatigue for a few days prior to admission. ER- XRC showed no acute abnormality. Found to be hypotensive, hyperkalemic, and renal insufficiency. Admitted to ICU level of care. Medical history includes DM, HTM, ISA hx, asthma, COPD, former smoker (quit 1993), PAH, OA with hips, knees and lumbar sacral spine, HFrEF -35% 03/2020, and obesity. Palliative medicine has beenconsulted for goals of care. 10-21-2020 KN95 mask worn through this visit along with protective eyewear Met with pt at bedside this am. She a/o x3. No c/o pain, no sob, no anxiety, no insomnia. Pt reports discharging to SNF for additional rehab. Initially she wanted to return home but tells me her spouse would not be able to care for her as he isnt well himself. Will sign off today as goals are clear, code status clarified and she has no unmanaged symptoms Pain Assessment (If Pain Scale >0) No pain Goals of care:Live Longer, Improve or Maintain Function/Quality of Life, Remain at Home, Preserve [place]/Autonomy/Control and Continue Current Management Advance Directives: full code spouse to call in with living Surrogate: Spouse Prognosis: unknown Spiritualassessment: No spiritual distress identified Bereavement and grief: Grief Issues Not Identified Past Medical History: Diagnosis Date Allergic rhinitis Asthma Colon cancer screening 06/2019 neg Cologuard COPD (chronic obstructive pulmonary disease) ([facility]) 2011 Mild per PFTs- exsmoker since 1993 DDD (degenerative disc disease), cervical Diastolic heart failure ([facility]) 03/2020 EF 35 %- [place] consult DVT (deep venous thrombosis) ([facility]) 06/2011 and PE post op oophorectomy Eczema Ex-smoker 1993 Gallstones 2010 asymptomatic H/O colonoscopy with polypectomy 2013 Dr. 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 PAH (pulmonary artery hypertension) ([facility]) 03/2020 workup pnd Renal cyst Type 2 diabetes mellitus ([facility]) 2010 diet controlled till 2014, DR TREJO Past Surgical History: Procedure Laterality Date APPENDECTOMY BREAST SURGERY Left 1979 breast bx BUNIONECTOMY Bilateral 1993 [place] COLONOSCOPY 12/[address] Connor -Small Polyp HYSTERECTOMY, TOTAL ABDOMINAL 1987 LAPAROTOMY 2010 Mass removal -Serous lesin vs adeno ca?? Post op DVT & PE LAPAROTOMY 2012 Abdominal Scar & Ventral Hernia Repair Dr. Norris TONSILLECTOMY Family History Problem Relation Age of Onset High Blood Pressure Mother Lung Cancer Mother age 79 Other Father TB at age 53 High Blood Pressure Sister Heart Disease Brother 65 CABG and defib /pacer Diabetes Brother oral rx Lung Cancer Brother ? mets to Brain from Lung, age 78 in 07/05 Allergies Allergen Reactions Latex Hives Acetaminophen Hives and Shortness Of Breath Other reaction(s): anaphylaxis Amphetamines Aztreonam Other reaction(s): Unknown Bactrim [Sulfamethoxazole-Trimethoprim] Hives Carbapenems Tolerated cefdinir 09/2020 Celecoxib Other reaction(s): Unknown Codeine Hives Other reaction(s): Unknown Doxycycline Hives Nickel Pcn [Penicillins] Tolerated cefdinir 09/2020 Phenacetin Propacetamol Saccharin ROS: See palliative care ROS/ESAS below; see HPI Family Meeting: Participants:No Family Meeting Held Today Family meeting was held to discuss: Objective: Physical Exam BP 113/83 Pulse 77 Temp 98.5 F (36.9 C) (Temporal) Resp 20 Ht 4' 11 (1.499 m) Wt 196 lb 12.8 oz (89.3 kg) SpO2 92% BMI 39.75 kg/m Physical Exam Vitals signs and nursing note reviewed. Constitutional: Appearance: Normal appearance. HENT: Head: Atraumatic. Nose: Nose normal. Mouth/Throat: Mouth: Mucous membranes are dry. Eyes: General: Right eye: No discharge. Left eye: No discharge. Neck: Musculoskeletal: Normal range of motion. Cardiovascular: Rate and Rhythm: Bradycardia present. Pulses: Normal pulses. Pulmonary: Effort: Pulmonary effort is normal. Abdominal: Palpations: Abdomen is soft. Musculoskeletal: Comments: Uses walker and w/c at home Skin: General: Skin is warm and dry. Neurological: Mental Status: She is alert and oriented to person, place, and time. Psychiatric: Mood and Affect: Mood normal. Behavior: Behavior normal. Behavior is cooperative. Thought Content: Thought content normal. Delano Symptom Assessment Score Delano Score Pain Score 0 Tiredness Score 4 Nausea Score 0 Depression Score 0 Anxiety Score 0 Drowsiness Score 0 Anorexia Score (0= eating well, 10= not eating) 4 Wellbeing Score (10= worst sense of well-being) 2 Constipation 0 Dyspnea Score (0= no shortness of breath) 0 FLACC Scale (For Pain Assessment of the Non-Verbal Patient) Pt is verbal CurrentMedications: Inpatient medications reviewed: yes Home Medications reviewed: yes 24 Hour PRN Meds: no PRN medications in 24 hours Results/Verification of Data Review Objective data reviewed: labs, images, records, medication use, vitals and chart Data in Support of Terminal Illness: Halle Patel is a 85 y.o. female who was seen for [id number] on 10/16/20 who is hospice appropriate with an expected prognosis of 6 months or less due to the following: Not applicable * Danelle Shay APRN - CNP - 10/21/2020 10:59 AM EST CARDIOLOGY PROGRESS NOTE Chart and interval events reviewed. Reason for Visit CHF- f/u SUBJECTIVE: Halle Patel states feeling OK, denies SOB, but states she now has a cough. Denies chest pain or palpitations. SCHEDULED MEDICATIONS: enalapril 20 mg Oral BID potassium chloride 20 mEq Oral Daily with breakfast furosemide 40 mg Oral Daily carvedilol 6.25 mg Oral BID WC sodium chloride flush 10 mL Intravenous 2 times per day heparin (porcine) 5,000 Units Subcutaneous 3 times per day sodium chloride flush 10 mL Intracatheter Q8H epoetin dave-epbx 40,000 Units Subcutaneous Q7 Days polyethylene glycol 17 g Oral Daily insulin lispro 0-6 Units Subcutaneous TID WC ipratropium-albuterol 1 ampule Inhalation BID Active Problems: Hypertension Type 2 diabetes mellitus (HCC) Hyperkalemia HFrEF (heart failure with reduced ejection fraction) ([facility]) Metabolic acidosis ISA (acute kidney injury) ([facility]) Acute pain of left shoulder Debility Resolved Problems: * No resolved hospital problems. * Review of Systems: Review of Systems Constitutional: Negative for chills, diaphoresis and fever. Pt states feeling OK Respiratory: Negative for cough, shortness of breath and wheezing. Denies specific symptoms of SOB, but now has a cough at times which she states is new since her admission. States she is trying to cough up phlem Cardiovascular: Negative for chest pain, palpitations and leg swelling. Denies CP or palpitations Gastrointestinal: Negative for abdominal pain, blood in stool, constipation, diarrhea, nausea and vomiting. Genitourinary: Negative for hematuria. Musculoskeletal: Positive for back pain. States she has chronic low back pain Neurological: Negative for dizziness and syncope. Denies dizziness or light headedness VITAL SIGNS: Vitals: 10/20/20 2349 10/21/20 0315 10/21/20 0353 10/21/20 0725 BP: (!) 170/72 125/82 113/83 Pulse: 70 76 77 Resp: 18 18 20 Temp: 97.1 F (36.2 C) 96.1 F (35.6 C) 98.5 F (36.9 C) TempSrc: Temporal Temporal Temporal SpO2: 97% 90% 92% Weight: 196 lb 12.8 oz (89.3 kg) Height: Intake/Output Summary (Last 24 hours) at 10/21/2020 1059 Last data filed at 10/21/2020 0818 Gross per 24 hour Intake 500 ml Output 380 ml Net 120 ml Patient Vitals for the past 96 hrs (Last 3 readings): Weight 10/21/20 0353 196 lb 12.8 oz (89.3 kg) 10/20/20 0436 196 lb 4.8 oz (89 kg) 10/19/20 0259 195 lb 14.4 oz (88.9 kg) Physical Exam: Physical Exam Constitutional: General: She is not in acute distress. Appearance: Normal appearance. She is well-developed. She is not diaphoretic. HENT: Mouth/Throat: Pharynx: No oropharyngeal exudate. Eyes: General: No scleral icterus. Right eye: No discharge. Left eye: No discharge. Neck: Thyroid: No thyromegaly. Vascular: No JVD. Cardiovascular: Rate and Rhythm: Normal rate and regular rhythm. Chest Wall: PMI is not displaced. Pulses: Normal pulses. Heart sounds: Normal heart sounds. No murmur. No gallop. Comments: Denies CP or palpitations Pulmonary: Effort: No accessory muscle usage or respiratory distress. Breath sounds: Normal breath sounds. Comments: Clear, mildly diminished bilateral bases Abdominal: General: Bowel sounds are normal. There is no distension or abdominal bruit. Palpations: Abdomen is soft. There is no shifting dullness or hepatomegaly. Tenderness: There is no abdominal tenderness. Comments: Soft, obese, nondistended Musculoskeletal: Normal range of motion. Comments: BLE are nonedmatous Skin: General: Skin is warm and dry. Neurological: Mental Status: She is alert and oriented to person, place, and time. Data: Scheduled Meds: Reviewed Continuous Infusions: dextrose CBC: Recent Labs 10/20/20 0412 10/21/208 WBC 14.8* 14.4* HGB 8.6* 8.8* HCT 26.1* 26.1* PLT 312 336 BMP: Recent Labs 10/20/20 0412 10/21/208 NA 134* 135 K 3.3* 3.6 CL 100 99 CO2 28 31* BUN 15 12 CREATININE 1.03 0.98 INR:No results for input(s): INR in the last 72 hours. No results for input(s): BNP in the last 72 hours. TSH: Lab Results Component Value Date TSH 2.501 10/17/2020 Cardiac Injury Profile: No results for input(s): CKTOTAL, CKMB, TROPONINI in the last 72 hours. Lipid Profile: Lab Results Component Value Date TRIG 108 06/23/2017 HDL 72 06/23/2017 CHOL 215 06/23/2017 EKG: See Report Telemetry Reviewed: SR- 79 bpm Echo: 04/08/2020- SUMMARY: 1. Procedure narrative: Image quality was suboptimal. The study was technically limited due to body habitus and respiratory interference. Intravenous imaging enhancement (Definity) was administered to opacify the chamber and enhance Doppler signals. 2. Left ventricle: Systolic function is moderately decreased by visual assessment. The estimated ejection fraction is 35%. There are no regional wall motion abnormalities. Features are consistent with a pseudonormal left ventricular filling pattern, with concomitant abnormal relaxation and increased filling pressure (grade 2 diastolic dysfunction). 3. Right ventricle: The RV pressure during systole by Doppler is 53 mm Hg. 4. Left atrium: The atrium is mildly dilated. 5. Right atrium: Central venous pressure (est): 8 mm Hg. 6. Signs of increased volume and pulmonary hypertension and elevated left sided filling pressures. IMPRESSIONS/RECOMMENDATIONS: 1. HFrEF, uncertain etiology, EF 25-35%. Stage C, Class II. Euvolemic. - enalapril increased yesterday to 20 mg BID- will continue - Coreg 6.25 mg twice daily and lasix 40 mg daily continues - will remain off aldactone for now- will consider starting when seen and evaluated out patient. - will continue to encourage daily weights and how to recognize early s/s of heart failure 2. ISA with hyperkalemia 2/2 ACEi, spironolactone, diuretics and NSAID use-improved - today creatinine 0.98 - baseline creatinine 0.7 - peak creatinine 2.65 - will continue to monitor with resuming ACEi - will remain off aldactone for now as stated above - to remain off NSAIDS indefinitely - potassium now normal 3. HTN- Well controlled -labile at times, will continue to monitor outpatient 4. Disp- OK to DC from a Cardiac standpoint- f/u has been arranged - pt is presently being ruled out for COVID prior to DC Electronicallysigned by ARPAN Ceron CNP on 10/21/2020 at 10:59 AM * Shay Hsu MD - 10/20/2020 5:59 PM EST [facility] Progress Note Subjective/ 85 y.o. year old female who we are seeing in consultation for ISA. Made good urine. NAEON Some SOB +. ROS otherwise negative. No change in pfsh. Objective/ Vitals: 10/20/20 0743 10/20/20 1101 10/20/20 1125 10/20/20 1454 BP: 116/71 (!) 142/75 124/75 Pulse: 69 68 70 Resp: 20 20 20 Temp: 96.4 F (35.8 C) 97 F (36.1 C) 98.4 F (36.9 C) TempSrc: Temporal Temporal Temporal SpO2: 94% 96% 94% 93% Weight: Height: 24HR INTAKE/OUTPUT: Intake/Output Summary (Last 24 hours) at 10/20/2020 1759 Last data filed at 10/20/2020 1750 Gross per 24 hour Intake 420 ml Output 200 ml Net 220 ml Constitutional: Alert, awake, no apparent distress Head: AT NC Neck: No JVD, no thyromegaly Cardiovascular: S1, S2 without m/r/g Respiratory: Reduced BS at b/l bases posteriorly, no wheezing Abdomen: soft, nt Ext: 1+ b/l LE edema, no tremor. Current Facility-Administered Medications Medication Dose Route Frequency Provider Last Rate Last Admin enalapril (VASOTEC) tablet 20 mg 20 mg Oral BID Lissette Baer PA-C potassium chloride (KLOR-CON M) extended release tablet 20 mEq 20 mEq Oral Daily with breakfast Shay Hsu MD 20 mEq at 10/20/20 1338 furosemide (LASIX) tablet 20 mg 20 mg Oral Daily Shay Hsu MD 20 mg at 10/20/20 0834 carvedilol (COREG) tablet 6.25 mg 6.25 mg Oral BID Amari Melvin DO 6.25 mg at 10/20/20 1736 glucose (GLUTOSE) 40 % oral gel 15 g 15 g Oral PRN Bren Acierno, COURT REPORTER - MANAGER OF CORPORATE dextrose 50 % IV solution 12.5 g Intravenous PRN Bren Acierno, COURT REPORTER - MANAGER OF CORPORATE glucagon (rDNA) injection 1 mg 1 mg Intramuscular PRN Bren Acierno, COURT REPORTER - MANAGER OF CORPORATE dextrose 5 % solution 100 mL/hr Intravenous PRN Bren Acierno, COURT REPORTER - MANAGER OF CORPORATE sodium chloride flush 0.9 % injection 10 mL 10 mL Intravenous 2 times per day Bren Acierno, COURT REPORTER -MANAGER OF CORPORATE 10 mL at 10/20/20 0835 sodium chloride flush 0.9 % injection 10 mL 10 mL Intravenous PRN Bren Acierno, COURT REPORTER - MANAGER OF CORPORATE heparin (porcine) injection 5,000 Units 5,000 Units Subcutaneous 3 times per day Bren Acierno, COURT REPORTER - MANAGER OF CORPORATE 5,000 Units at 10/20/20 1523 albuterol (PROVENTIL) nebulizer solution 2.5 mg 2.5 mg Nebulization Q6H PRN Bren Acierno, COURT REPORTER - MANAGER OF CORPORATE sodium chloride flush 0.9 % injection 10 mL 10 mL Intracatheter Q8H Bren Acierno, COURT REPORTER - MANAGER OF CORPORATE 10 mLat 10/20/20 1738 sodium chloride flush 0.9 % injection 10 mL 10 mL Intracatheter PRN Bren Acierno, COURT REPORTER - MANAGER OF CORPORATE epoetin dave-epbx (RETACRIT) injection 40,000 Units 40,000 Units Subcutaneous Q7 Days Bren Acierno, COURT REPORTER - MANAGER OF CORPORATE 40,000 Units at 10/16/20 1342 polyethylene glycol (GLYCOLAX) packet 17 g 17 g Oral Daily ARPAN Foster CNP 17 g at 10/20/20 0833 insulin lispro (HUMALOG) injection vial 0-6 Units 0-6 Units Subcutaneous TID WC ROB Foster MANAGER OF CORPORATE 1 Units at 10/20/20 1328 ipratropium-albuterol (DUONEB) nebulizer solution 1 ampule 1 ampule Inhalation Q4H PRN Bren Garcia APRN - MANAGER OF CORPORATE ipratropium-albuterol (DUONEB) nebulizer solution 1 ampule 1 ampule Inhalation BID ARPAN Foster CNP 1 ampule at 10/20/20 1101 dextrose Data/ Recent Labs 10/18/20 0514 10/19/20 0337 10/20/20 0412 WBC 8.8 11.5* 14.8* HGB 8.6* 8.6* 8.6* HCT 25.1* 25.6* 26.1* MCV 88.8 89.3 89.4 PLT 287 316 312 Recent Labs 10/18/20 0514 10/18/20 0514 10/19/20 0337 10/19/20 1715 10/20/20 0412 NA 139 < > 136 136 134* K 3.9 < > 3.3* 3.7 3.3* CL 104 < > 101 100 100 CO2 31* < > 32* 28 28 GLUCOSE 106* < > 129* 124* 133* PHOS 3.7 -- -- -- -- MG 1.7 -- 1.5* -- 1.4* BUN 37* < > 26* 19 15 CREATININE 1.36* < > 1.15 1.08 1.03 < > = values in this interval not displayed. Assessment/ 1. Acute severe hyperkalemia. 2. ISA 2/2 ATN (hypotension, nsaids, scooby, diuresis) 3. NAGMA 4. 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 Hyponatremia- improving. 6. Obesity BMI 36 7. Bradycardia. 8. Anemia. Plan/ Cr stable. Increase Lasix po Okay with SCOOBY Inhibitor, noted started by cardiology Lasix should keep hyperkalemia in check. Needs to be avoiding nsaids (indefinitely) and be cautiouswith K supplementation. Eventually may start spironolactone as well. May need reduction in lasix to 20mg qday when spironolactone eventually started. Okay to use additional diuretic prn (I/V lasix 40mg prn) for resp distress if needed. Complicated MDM. No hydronephrosis on CT abd/pelvis. Will follow D/w Dr. Diaz with IMS. Shay Hsu MD [facility] * Evangelista Sue Jr., MD - 10/20/2020 10:58 AM EST Patient seen and chart reviewed. No current bleed or thrombosis. Remains afebrile. Baseline mentation. Exam stable X 5 systems. Hgb unchanged at 8.6 WBC 14.8 K ANC 12,100 Platelets 312 K Creatinine down to 1.03 GFR 49.9 cc/min. Tentative plan is discharge to [facility] for rehab. Will give 2nd dose of Venofer prior to transfer. Discussed with patient and rn staffing. Will continue to monitor. Total visit time > 35 minutes. * Lissette Baer PA-C - 10/20/2020 7:32 AM EST CARDIOLOGY PROGRESS NOTE Chart and interval events reviewed. Reason for Visit follow-up HF and ISA SUBJECTIVE: Halle Patel states she wants to go home. Understands she would benefit from short term rehab and seems willing. Denies chest pain or dyspnea. SCHEDULED MEDICATIONS: enalapril 10 mg Oral BID furosemide 20 mg Oral Daily carvedilol 6.25 mg Oral BID WC sodium chloride flush 10 mL Intravenous 2 times per day heparin (porcine) 5,000 Units Subcutaneous 3 times per day sodium chloride flush 10 mL Intracatheter Q8H epoetin dave-epbx 40,000 Units Subcutaneous Q7 Days polyethylene glycol 17 g Oral Daily insulin lispro 0-6 Units Subcutaneous TID WC ipratropium-albuterol 1 ampule Inhalation BID Active Problems: Hypertension Type 2 diabetes mellitus (HCC) Hyperkalemia HFrEF (heart failure with reduced ejection fraction) (HCC) Metabolic acidosis ISA (acute kidney injury) (HCC) Acute pain of left shoulder Debility Resolved Problems: * No resolved hospital problems. * Review of Systems: Review of Systems Constitutional: Negative for chills, diaphoresis and fever. HENT: Negative for congestion. Eyes: Negative for visual disturbance. Respiratory: Negative for chest tightness and shortness of breath. Cardiovascular: Negative for chest pain and leg swelling. Gastrointestinal: Negative for abdominal pain, constipation, diarrhea and nausea. Endocrine: Negative for cold intolerance and heat intolerance. Genitourinary: Negative for dysuria and hematuria. Musculoskeletal: Negative for arthralgias. Skin: Negative for rash. Neurological: Negative for dizziness and syncope. VITAL SIGNS: Vitals: 10/19/20 2338 10/20/20 0102 10/20/20 0252 10/20/20 0436 BP: (!) 161/84 (!) 155/79 Pulse: 72 72 77 Resp: 18 16 Temp: 98.6 F (37 C) 98.6 F (37 C) TempSrc: Temporal Temporal Temporal SpO2: 93% 96% Weight: 196 lb 4.8 oz (89 kg) Height: Intake/Output Summary (Last 24 hours) at 10/20/2020 0732 Last data filed at 10/19/2020 2300 Gross per 24 hour Intake 400 ml Output 200 ml Net 200 ml Patient Vitals for the past 96 hrs (Last 3 readings): Weight 10/20/20 0436 196 lb 4.8 oz (89 kg) 10/19/20 0259 195 lb 14.4 oz (88.9 kg) 10/18/20 0311 188 lb 14.4 oz (85.7 kg) Physical Exam: Physical Exam Vitals signs reviewed. Constitutional: General: She is not in acute distress. Appearance: Normal appearance. She is well-developed. She is obese. HENT: Head: Normocephalic and atraumatic. Eyes: General: No scleral icterus. Extraocular Movements: Extraocular movements intact. Neck: Musculoskeletal: Normal range of motion and neck supple. Vascular: No hepatojugular reflux or JVD. Cardiovascular: Rate and Rhythm: Normal rate and regular rhythm. Pulses: Dorsalis pedis pulses are 2+ on the right side and 2+ on the left side. Posterior tibial pulses are 2+ on the right side and 2+ on the left side. Heart sounds: S1 normal and S2 normal. Heart sounds are distant. No murmur. No friction rub. No gallop. No S3 or S4 sounds. Pulmonary: Effort: No accessory muscle usage or respiratory distress. Breath sounds: Normal breath sounds. No wheezing, rhonchi or rales. Abdominal: General: Bowel sounds are normal. There is no distension. Palpations: Abdomen is soft. Tenderness: There is no abdominal tenderness. Musculoskeletal: Normal range of motion. Right lower leg: Edema present. Left lower leg: Edema present. Comments: Trace LE edema Skin: General: Skin is warm and dry. Coloration: Skin is not pale. Findings: No erythema or rash. Neurological: Mental Status: She is alert and oriented to person, place, and time. Data: Scheduled Meds: Reviewed Continuous Infusions: dextrose CBC: Recent Labs 10/19/20 0337 10/20/20 0412 WBC 11.5* 14.8* HGB 8.6* 8.6* HCT 25.6* 26.1* PLT 316 312 BMP: Recent Labs 10/19/20 1715 10/20/20 0412 NA 136 134* K 3.7 3.3* CL 100 100 CO2 28 28 BUN 19 15 CREATININE 1.08 1.03 INR:No results for input(s): INR in the last 72 hours. No results for input(s): BNP in the last 72 hours. TSH: Lab Results Component Value Date TSH 2.501 10/17/2020 Cardiac Injury Profile: No results for input(s): CKTOTAL, CKMB, TROPONINI in the last 72 hours. Lipid Profile: Lab Results Component Value Date TRIG 108 06/23/2017 HDL 72 06/23/2017 CHOL 215 06/23/2017 EKG: See Report Telemetry Reviewed: SR Echo: See Report Echo: 04/08/2020 1. Procedure narrative: Image quality was suboptimal. The study was technically limited due to body habitus and respiratory interference. Intravenous imaging enhancement (Definity) was administered to opacify the chamber and enhance Doppler signals. 2. Left ventricle: Systolic function is moderately decreased by visual assessment. The estimated ejection fraction is 35%. There are no regional wall motion abnormalities. Features are consistent with a pseudonormal left ventricular filling pattern, with concomitant abnormal relaxation and increased filling pressure (grade 2 diastolic dysfunction). 3. Right ventricle: The RV pressure during systole by Doppler is 53 mm Hg. 4. Left atrium: The atrium is mildly dilated. 5. Right atrium: Central venous pressure (est): 8 mm Hg. 6. Signs of increased volume and pulmonary hypertension and elevated left sided filling pressures. IMPRESSIONS/RECOMMENDATIONS: HFrEF, uncertain etiology, EF 25-35%. Stage C, Class II. Euvolemic. - continue coreg - Back on enalapril 10 mg po BID, will increase to 20 mg po bid - close monitoring of renal fxn and K - hydralazine/nitrates stopped when SCOOBY resumed - add spironolactone as OP if renal function/K+ remains stable - continue po lasix ISA with hyperkalemia 2/2 ACEi, spironolactone, diuretics and NSAID use - baseline creatinine 0.7 - peak creatinine 2.65 - creatinine today 1.03 (continues to improve) - ACEi resumed - no NSAIDS - K+ normalized HTN. BP labile - continue current meds Dispo: ok to discharge from cardiology standpoint. We will follow while she remains in the hospitalto titrate HF meds. Outpatient follow-up arranged with ONDINA Borja on 11/04/2020 at 9:45am Electronicallysigned by Lissette Baer PA-C on 10/20/2020 at 7:32 AM * Delbert Diaz MD - 10/20/2020 7:30 AM EST Hospitalist Progress Note 10/20/2020 7:30 AM [phone]: Please page hi [phone] for patient care issues. [phone]: Please page [facility] Hospitalist for any issues. Subjective: Admit Date: 10/15/2020 PCP: Kirby Dukes DO Interval History: No complaints today. Sitting in bed and seen with cardiology. PT understands she is weak and is now open to SNF. Requests somewhere in [place]. No overnight issues. Denies chest pain, sob, abdominal pain, nausea, vomiting, diarrhea, constipation, fevers, or chills. DIET RENAL; Carb Control: 4 carb choices (60 gms)/meal Patient Vitals for the past 96 hrs (Last 3 readings): Weight 10/20/20 0436 196 lb 4.8 oz (89 kg) 10/19/20 0259 195 lb 14.4 oz (88.9 kg) 10/18/20 0311 188 lb 14.4 oz (85.7 kg) In: 100 [P.O.:100] Out: 200 [Urine:200] Medications: dextrose enalapril 10 mg Oral BID furosemide 20 mg Oral Daily carvedilol 6.25 mg Oral BID WC sodium chloride flush 10 mL Intravenous 2 times per day heparin (porcine) 5,000 Units Subcutaneous 3 times per day sodium chloride flush 10 mL Intracatheter Q8H epoetin dave-epbx 40,000 Units Subcutaneous Q7 Days polyethylene glycol 17 g Oral Daily insulin lispro 0-6 Units Subcutaneous TID WC ipratropium-albuterol 1 ampule Inhalation BID LABS: CBC: Recent Labs 10/18/20 0514 10/19/20 0337 10/20/20 0412 WBC 8.8 11.5* 14.8* RBC 2.83* 2.87* 2.92* HGB 8.6* 8.6* 8.6* HCT 25.1* 25.6* 26.1* MCV 88.8 89.3 89.4 RDW 13.3 13.3 13.5 PLT 287 316 312 BMP: Recent Labs 10/19/20 0337 10/19/20 1715 10/20/20 0412 NA 136 136 134* K 3.3* 3.7 3.3* CL 101 100 100 CO2 32* 28 28 BUN 26* 19 15 CREATININE 1.15 1.08 1.03 GLUCOSE 129* 124* 133* CALCIUM 8.2* 8.4 8.5 ANIONGAP 4 7 6 LIVER PROFILE: No results for input(s): AST, ALT, BILITOT, ALKPHOS, LABALBU, PROT in the last 72 hours. PT/INR: No results for input(s): PROTIME, INR in the last 72 hours. CARDIAC ENZYMES: No results for input(s): TROPONINI in the last 72 hours. Procalcitonin: No results found for: PROCAL Glucose: Recent Labs 10/18/20 1941 10/19/20 0757 10/19/20 1143 10/19/20 1628 10/19/20201210/20/20 0718 POCGLU 168* 134* 167* 130* 177* 134* Objective: Vitals: BP (!) 155/79 Pulse 77 Temp 98.6 F (37 C) (Temporal) Resp 16 Ht 4' 11 (1.499 m) Wt 196 lb 4.8 oz (89 kg) SpO2 96% BMI 39.65 kg/m Pulse Ox: SpO2 Av.3 % Min: 93 % Max: 98 % Supplemental O2: General appearance: No apparent distress, appears stated age and cooperative with exam; Obese elderly female HEENT: Normal cephalic, atraumatic without obvious deformity. Pupils equal, round, and reactive to light. Extra ocular muscles intact. Conjunctivae/corneas clear. Neck: Supple, with full range of motion. No jugular venous distention. Trachea midline. No lymphadenopathy. Respiratory: Normal respiratory effort. Clear to auscultation, bilaterally without Rales/Wheezes/Rhonchi. Cardiovascular: Regular rate and rhythm with normal S1/S2 without murmurs, rubs or gallops. Abdomen: Soft, non-tender, non-distended with normal bowel sounds. No rebound or guarding. Musculoskeletal: No clubbing, cyanosis or edema bilaterally. Full range of motion without deformity. Skin: Left arm swollen with pain around previous IV sites; Otherwise, Skin color, texture, turgor normal. No rashes or lesions. Neurologic: Neurovascularly intact without any focal sensory/motor deficits. Cranial nerves: II-XIIintact, grossly non-focal. Assessment 1. Acute Severe Hyperkalemia - Resolved; Nephrology following; Now Hypokalemic; Minimal replacementdosing per Nephrology 2. Hyponatremia - Resolved 3. ISA 2/2 ATN (NSAIDs, SCOOBY, hypotension) - Nephrology following; Lasix today; SCOOBY resumed 4. NAGMA - Resolved 5. Acute Respiratory Insufficiency s/s COPD - On room air 6. COPD 7. E.coli UTI - Cefdinir for 3 days 8. Anemia -Stable 9. Left arm pain/ swelling - US without DVT/ phlebitis; Pain control 10. HTN 11. HFrEF 12. DM II 13. Obesity Diagnosis Date Allergic rhinitis Asthma Colon cancer screening 06/2019 neg Cologuard COPD (chronic obstructive pulmonary disease) ([facility]) 2011 Mild per PFTs- exsmoker since 1993 DDD (degenerative disc disease), cervical Diastolic heart failure ([facility]) 03/2020 EF 35 %- Supriya consult DVT (deep venous thrombosis) ([facility]) 06/2011 and PE post op oophorectomy Eczema Ex-smoker 1993 Gallstones 2010 asymptomatic H/O colonoscopy with polypectomy 2013 Dr. 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 PAH (pulmonary artery hypertension) ([facility]) 03/2020 workup pnd Renal cyst Type 2 diabetes mellitus ([facility]) 2010 diet controlled till 2014, DR TREJO Plan - Replace K - Placement - Adjust medications -am labs, replace lytes prn -increase activity -DVT prophylaxis: [] Lovenox [x] Heparin [] SCDs [x] Encourage ambulation [] Already on Anticoagulation Advance Directive: Full Code Discharge plannin-48 hours; If able to place somewhere in [place] ([facility] first choice) Delbert Diaz MD Division of Hospitalist Medicine Inpatient Medical Services PAGER: [phone] * Shay Hsu MD - 10/19/2020 7:03 PM EST [facility] Nephrology Progress Note Subjective/ 85 y.o. year old female who we are seeing in consultation for ISA. Made good urine. NAEON Some SOB +. ROS otherwise negative. No change in pfsh. Objective/ Vitals: 10/19/20 0732 10/19/20 1030 10/19/20 1049 10/19/20 1516 BP: (!) 155/82 (!) 165/78 (!) 176/78 Pulse: 75 66 68 Resp: 20 18 20 24 Temp: 98.9 F (37.2 C) 97.3 F (36.3 C) 96.8 F (36 C) TempSrc: Temporal Temporal Temporal SpO2: 95% 96% 96% 98% Weight: Height: 24HR INTAKE/OUTPUT: Intake/Output Summary (Last 24 hours) at 10/19/2020 1903 Last data filed at 10/19/2020 0859 Gross per 24 hour Intake 300 ml Output 400 ml Net -100 ml Constitutional: Alert, awake, no apparent distress Head: AT NC Neck: No JVD, no thyromegaly Cardiovascular: S1, S2 without m/r/g Respiratory: Reduced BS at b/l bases posteriorly, no wheezing Abdomen: soft, nt Ext: 1+ b/l LE edema, no tremor. Current Facility-Administered Medications Medication Dose Route Frequency Provider Last Rate Last Admin enalapril (VASOTEC) tablet 10 mg 10 mg Oral BID Alysia Don APRN - [facility] 10 mg at 10/19/20 0912 furosemide (LASIX) tablet 20 mg 20 mg Oral Daily Shay Hsu MD 20 mg at 10/19/20 0816 carvedilol (COREG) tablet 6.25 mg 6.25 mg Oral BID Amari Melvin DO 6.25 mg at 10/19/20 1714 glucose (GLUTOSE) 40 % oral gel 15 g 15 g Oral PRN Bren Aciertrang, COURT REPORTER - MANAGER OF CORPORATE dextrose 50 % IV solution 12.5 g Intravenous PRN Bren Acierno, COURT REPORTER - MANAGER OF CORPORATE glucagon (rDNA) injection 1 mg 1 mg Intramuscular PRN Bren Acierno, COURT REPORTER - MANAGER OF CORPORATE dextrose 5 % solution 100 mL/hr Intravenous PRN Bren Acierno, COURT REPORTER - MANAGER OF CORPORATE sodium chloride flush 0.9 % injection 10 mL 10 mL Intravenous 2 times per day Bren Acierno, COURT REPORTER -MANAGER OF CORPORATE 10 mL at 10/19/20 0816 sodium chloride flush 0.9 % injection 10 mL 10 mL Intravenous PRN Bren Acierno, COURT REPORTER - MANAGER OF CORPORATE heparin (porcine) injection 5,000 Units 5,000 Units Subcutaneous 3 times per day Bren Acierno, COURT REPORTER - MANAGER OF CORPORATE 5,000 Units at 10/19/20 1430 albuterol (PROVENTIL) nebulizer solution 2.5 mg 2.5 mg Nebulization Q6H PRN Bren Acierno, COURT REPORTER - MANAGER OF CORPORATE sodium chloride flush 0.9 % injection 10 mL 10 mL Intracatheter Q8H Bren Acierno, COURT REPORTER - MANAGER OF CORPORATE 10 mLat 10/18/20 1505 sodium chloride flush 0.9 % injection 10 mL 10 mL Intracatheter PRN Bren Garcia APRN - [facility] epoetin dave-epbx (RETACRIT) injection 40,000 Units 40,000 Units Subcutaneous Q7 Days Bren SHANTA GarciaN - MANAGER OF CORPORATE 40,000 Units at 10/16/20 1342 polyethylene glycol (GLYCOLAX) packet 17 g 17 g Oral Daily Bren ARPAN Garcia - MANAGER OF CORPORATE 17 g at 10/19/20 0816 insulin lispro (HUMALOG) injection vial 0-6 Units 0-6 Units Subcutaneous TID WC Bren Garcia APRN- MANAGER OF CORPORATE 1 Units at 10/19/20 1325 ipratropium-albuterol (DUONEB) nebulizer solution 1 ampule 1 ampule Inhalation Q4H PRN Bren Garcia APRN - [facility] ipratropium-albuterol (DUONEB) nebulizer solution 1 ampule 1 ampule Inhalation BID Bren Garcia APRN - [facility] 1 ampule at 10/19/20 1030 dextrose Data/ Recent Labs 10/17/20 0608 10/18/20 0514 10/19/20 0337 WBC 7.2 8.8 11.5* HGB 8.7* 8.6* 8.6* HCT 26.2* 25.1* 25.6* MCV 89.2 88.8 89.3 PLT 266 287 316 Recent Labs 10/17/20 0608 10/17/20 0608 10/18/20 0514 10/18/20 1522 10/19/20 0337 10/19/20 1715 NA 137 < > 139 137 136 136 K 5.7* < > 3.9 3.8 3.3* 3.7 CL 105 < > 104 102 101 100 CO2 27 < > 31* 33* 32* 28 GLUCOSE 99 < > 106* 130* 129* 124* PHOS 4.3 -- 3.7 -- -- -- MG 1.7 -- 1.7 -- 1.5* -- BUN 55* < > 37* 33* 26* 19 CREATININE 1.67* < > 1.36* 1.25 1.15 1.08 < > = values in this interval not displayed. Assessment/ 1. Acute severe hyperkalemia. 2. ISA 2/2 ATN (hypotension, nsaids, scooby, diuresis) 3. NAGMA 4. 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 Hyponatremia- improving. 6. Obesity BMI 36 7. Bradycardia. 8. Anemia. Plan/ Cr stable. C/w lasix, may need to up titrate. Okay with SCOOBY Inhibitor, noted started by cardiology Lasix should keep hyperkalemia in check. Needs to be avoiding nsaids (indefinitely) and be cautiouswith K supplementation. Eventually may start spironolactone as well. Okay to use additional diuretic prn (I/V lasix 40mg prn) for resp distress if needed. Complicated MDM. No hydronephrosis on CT abd/pelvis. Will follow Shay Hsu MD [facility] * Catherine Hoffmann, OT - 10/19/2020 3:10 PM EST Occupational Therapy Occupational Therapy Initial Assessment Date: 10/19/2020 Patient Name: Halle Patel : 1935 Date of Service: 10/19/2020 Discharge Recommendations: Subacute/Snf Facility OT Equipment Recommendations Equipment Needed: (TBD at next level of care) Assessment Performance deficits / Impairments: Decreased functional mobility ;Decreased balance;Decreased safeawareness;Decreased ADL status;Decreased endurance Assessment: Pt arrived at ED on 10/15/ routine blood work findings of renal failure. Prior to admission, pt lived with spouse and required assistance with ADLs and IADLs. Pt reported having a WELDING MACHINE OPERATOR GAS 2/wk to assist with bathing. Pt used a rollator for mobility. Upon eval, pt required Max A for LB ADLs and Mod A for functional mobility with FWW. Mod-Max A was required for bed mobility this date. Ptis expected to benefit from skilled services to increase independence with ADLs and functional mobility. Pt agreeable to recommendation of SNF for d/c. Treatment Diagnosis: renal failure Prognosis: Fair Decision Making: Medium Complexity History: Pt arrived at ED on 10/15 d/t routine blood work findings of renal failure. Exam: AM-PAC Assistance / Modification: MAX OT Education: OT Role;Plan of Care;Transfer Training Patient Education: Pt receptive to education and POC. Barriers to Learning: none. REQUIRES OT FOLLOW UP: Yes Activity Tolerance Activity Tolerance: Patient limited by fatigue Safety Devices Safety Devices in place: Yes Type of devices: All fall risk precautions in place;Gait belt;Patient at risk for falls;Call light within reach;Left in bed;Nurse notified Patient Diagnosis(es): The primary encounter diagnosis was Hyperkalemia. A diagnosis of Renal insufficiency was also pertinent to this visit. has a past medical history of Allergic rhinitis, Asthma, Colon cancer screening, COPD (chronic obstructive pulmonary disease) (HCC), DDD (degenerative disc disease), cervical, Diastolic heart failure(HCC), DVT (deep venous thrombosis) (HCC), Eczema, Ex-smoker, Gallstones, H/O colonoscopy with polypectomy, HFrEF (heart failure with reduced ejection fraction) (HCC), History of ovarian cyst, Hypertension, Osteoarthritis, PAH (pulmonary artery hypertension) (HCC), Renal cyst, and Type 2 diabetes mellitus (HCC). has a past surgical history that includes Tonsillectomy; Appendectomy; Breast surgery (Left, 1979);Colonoscopy (12/2013); Hysterectomy, total abdominal (1986); Bunionectomy (Bilateral, 1993); laparotomy (2010); and laparotomy (2011). Treatment Diagnosis: renal failure Restrictions Restrictions/Precautions Restrictions/Precautions: General Precautions, Fall Risk Required Braces or Orthoses?: No Subjective General Chart Reviewed: Yes Patient assessed for rehabilitation services?: Yes Family / Caregiver Present: No Subjective Subjective: Pt in bed upon arrival, agreeable to OT eval. General Comment Comments: Per NSG, pt OK to see. Patient Currently in Pain: Denies Vital Signs Patient Currently in Pain: Denies Social/Functional History Social/Functional History Lives With: Spouse Type of Home: Trailer Home Layout: One level Home Access: Ramped entrance Bathroom Shower/Tub: Tub/Shower unit Bathroom Toilet: Standard Bathroom Equipment: Grab bars in shower, Grab bars around toilet, Shower chair Bathroom Accessibility: Accessible Home Equipment: Rolling walker(Transport WC.) Receives Help From: Family ADL Assistance: Needs assistance Homemaking Assistance: Needs assistance Homemaking Responsibilities: No Ambulation Assistance: Needs assistance Transfer Assistance: Needs assistance Active Computing Architect: No Additional Comments: Pt reports that her will help her with whatever she needs and that a WELDING MACHINE OPERATOR GAS comes twice per week to assist with bathing. Objective Vision: Impaired Vision Exceptions: Wears glasses at all times Hearing: Within functional limits Orientation Overall Orientation Status: Within Functional Limits Observation/Palpation Posture: Fair Observation: No lines or tubes. Balance Sitting Balance: Stand by assistance Standing Balance: Minimal assistance Standing Balance Time: ~ 1 minute Activity: Static standing at bedside Comment: Pt stood at bedside with Min A, FWW, and VCs for posture. Functional Mobility Functional - Mobility Device: Rolling Walker Activity: Other(A few steps at bedside) Assist Level: Moderate assistance Functional Mobility Comments: Prior to functional mobility, pt received education regarding hand placement for walker safety. Pt then walked a few steps at bedside using a FWW with Mod A progressing to Min A. Pt steps were small shuffles and pt required Mod encouragement to perform the task. Additionally, pt required additional time. No overt LOB this date. ADL Feeding: Independent Grooming: Setup(bed-level) UE Bathing: Minimal assistance LE Bathing: Maximum assistance UE Dressing: Minimal assistance LE Dressing: Maximum assistance Toileting: Maximum assistance Additional Comments: Pt reported that the WELDING MACHINE OPERATOR GAS helps her with bathing at home. During eval, pt sat at EOB and attempted to don pants. Pt unable to thread B LEs and required assistance to don pants over hips when standing at FWW d/t balance deficits resulting in inability to remove hands from walker.Overall, pt required Max A for LB dressing this date. Bed mobility Rolling to Left: Moderate assistance Rolling to Right: Moderate assistance Supine to Sit: Maximum assistance Sit to Supine: Maximum assistance Scooting: Moderate assistance Comment: Pt required assistance to move B LEs and some assistance to position trunk requiring overall Max A for supine to sit. Once seated at EOB pt was able use therapist's hand to scoot forward resulting in Mod A. When attempting to reposition in bed, pt performed rolling requiring Mod A and use of therapists hand/bed rail. Transfers Sit to stand: Moderate assistance Stand to sit: Minimal assistance Transfer Comments: Pt required Mod A to perform sit to stand with FWW. Pt attempted to sit prematurely and impulsively however was redirected with VCs. No c/o dizziness with positional changes. Cognition Overall Cognitive Status: Exceptions Arousal/Alertness: Appropriate responses to stimuli Following Commands: Follows all commands without difficulty Attention Span: Appears intact Memory: Appears intact Safety Judgement: Decreased awareness of need for safety Problem Solving: Assistance required to identify errors made;Assistance required to correct errors made;Decreased awareness of errors Insights: Fully aware of deficits Initiation: Does not require cues Sequencing: Does not require cues Cognition Comment: Pt was provided with pants that were inside-out. Pt required VC to notice the problem. Pt attempted to fix the problem but was unsuccessful requiring physical assistance. Perception Overall Perceptual Status: WFL Sensation Overall Sensation Status: WFL(no c/o numbness or tingling.) LUE AROM (degrees) LUE AROM : WNL Left Hand AROM (degrees) Left Hand AROM: WNL Right Hand PROM (degrees) Right Hand PROM: WNL Right Hand AROM (degrees) Right Hand AROM: WNL LUE Strength Gross LUE Strength: WFL RUE Strength Gross RUE Strength: WFL Plan Plan 4 visits Specific instructions for Next Treatment: Address AE for LB dressing to improve independence. Current Treatment Recommendations: Safety Education & Training, Balance Training, Patient/Caregiver Education & Training, Self-Care / ADL, Functional Mobility Training, Endurance Training, Equipment Evaluation, Education, & procurement Plan Comment: POC and goals created in collaboration with pt. AM-PAC Score [facility] Inpatient Daily Activity Raw Score: 12 (10/19/201509) [facility] Inpatient ADL T-Scale Score : 30.6 (10/19/201509) ADL Inpatient [facility] 0-100% Score: 66.57 (10/19/201509) ADL Inpatient [facility] G-Code Modifier : CL (10/19/201509) Goals Short term goals Time Frame for Short term goals: 4 visits Short term goal 1: Pt will perform functional mobility and transfers with CGA and FWW. Short term goal 2: Pt will perform bed mobility with Mod I. Short term goal 3: Pt will tolerate > 15 minutes of EOB activity. Short term goal 4: Pt will perform UB ADLs and self-care with Mod I. Short term goal 5: Pt will perform LB ADLs using AE as necessary with Mod I. Short term goal 6: Pt will perform toileting with Mod I. Short term goal 7: Pt will tolerate > 4 minutes of standing during functional activity. Patient Goals Patient goals : to get more independent Therapy Time Individual Concurrent Group Co-treatment Time In 1415 Time Out 1429 Minutes 14 Patient's occupational therapy plan of care supervision is transferred to Inpatient Therapy Services Department Occupational Therapist Cahterine Hoffmann OT * Merlyn Robertson RN - 10/19/2020 2:14 PM EST Pt gives permission to discuss plan of care and medical information with sister in law, Anita. SW sister in law, she feels that pt would benefit from rehab to get stronger before going home. May call her with any questions or to discuss plan [phone]. Merlyn * Evangelista Sue Jr., MD - 10/19/2020 12:23 PM EST Patient seen and chart reviewed. No current bleed or thrombosis. Remains afebrile. Baseline mentation. Exam stable X 5 systems. Hgb 8.6 WBC 11.5 K ANC 8,800 Platelets 316 K Creatinine 1.15 GFR 43.6 cc/min K+ 3.3 LUE Venous Doppler is negative for DVT. Tolerated Venofer without incident. Discussed with patient and rn staffing. Will continue to monitor. Total visit time > 35 minutes. * Ting Rene, PT - 10/19/2020 10:31 AM EST Physical Therapy Facility/Department: [facility] 2E TELEMETRY Initial Assessment NAME: Halle Patel : 1935 Date of Service: 10/19/2020 Discharge Recommendations: Subacute/Snf Facility PT Equipment Recommendations Equipment Needed: No Assessment Assessment: Halle presents with impaired strength, endurance, posture, and balance, with associatedfunctional limitations to bed mobility, transfers, and gait. Her condition is evolving and requiresskilled PT to address functional limitations. Prognosis: Good Decision Making: Medium Complexity PT Education: Goals;PT Role;Plan of Care;General Safety Barriers to Learning: None. REQUIRES PT FOLLOW UP: Yes Activity Tolerance Activity Tolerance: Patient limited by endurance Patient Diagnosis(es): The primary encounter diagnosis was Hyperkalemia. A diagnosis of Renal insufficiency was also pertinent to this visit. has a past medical history of Allergic rhinitis, Asthma, Colon cancer screening, COPD (chronic obstructive pulmonary disease) (HCC), DDD (degenerative disc disease), cervical, Diastolic heart failure(HCC), DVT (deep venous thrombosis) (HCC), Eczema, Ex-smoker, Gallstones, H/O colonoscopy with polypectomy, HFrEF (heart failure with reduced ejection fraction) (HCC), History of ovarian cyst, Hypertension, Osteoarthritis, PAH (pulmonary artery hypertension) (HCC), Renal cyst, and Type 2 diabetes mellitus (HCC). has a past surgical history that includes Tonsillectomy; Appendectomy; Breast surgery (Left, 1979);Colonoscopy (12/2013); Hysterectomy, total abdominal (1986); Bunionectomy (Bilateral, 1993); laparotomy (2010); and laparotomy (2011). Restrictions Restrictions/Precautions Restrictions/Precautions: General Precautions, Fall Risk Required Braces or Orthoses?: No Vision/Hearing Vision: Impaired Vision Exceptions: Wears glasses at all times Hearing: Within functional limits Subjective General Chart Reviewed: Yes Patient assessed for rehabilitation services?: Yes Family / Caregiver Present: No Follows Commands: Within Functional Limits Subjective Subjective: Halle was pleasent and agreeable to PT evaluation. Orientation Orientation Overall Orientation Status: Within Normal Limits Social/Functional History Social/Functional History Lives With: Spouse Type of Home: Trailer Home Layout: One level Home Access: Ramped entrance Bathroom Shower/Tub: Tub/Shower unit Bathroom Toilet: Standard Bathroom Equipment: Grab bars in shower Bathroom Accessibility: Accessible Home Equipment: Rolling walker(Transport WC.) Receives Help From: Family ADL Assistance: Needs assistance Homemaking Assistance: Needs assistance Homemaking Responsibilities: No Ambulation Assistance: Needs assistance Transfer Assistance: Needs assistance Active Computing Architect: No Cognition Cognition Overall Cognitive Status: [facility] Objective Observation/Palpation Posture: Fair AROM RLE (degrees) RLE AROM: WFL AROM LLE (degrees) LLE AROM : WFL Strength RLE Comment: 3-/5 Strength LLE Comment: 3-/5 Tone RLE RLE Tone: Normotonic Tone LLE LLE Tone: Normotonic Motor Control Gross Motor?: WNL Sensation Overall Sensation Status: [facility] Bed mobility Rolling to Left: Moderate assistance Rolling to Right: Moderate assistance Supine to Sit: Moderate assistance Sit to Supine: Moderate assistance Scooting: Moderate assistance Transfers Sit to Stand: Moderate Assistance Stand to sit: Moderate Assistance Bed to Chair: Moderate assistance Comment: Bed to BSC using FWW. Ambulation Ambulation?: No Stairs/Curb Stairs?: No Balance Posture: Fair Sitting - Static: Fair;+ Sitting - Dynamic: Fair;+ Standing - Static: Fair Standing - Dynamic: Fair Plan Plan Times per week: 5 Times per day: Daily Plan weeks: 1 Current Treatment Recommendations: Strengthening, Transfer Training, Endurance Training, Neuromuscular Re-education, Patient/Caregiver Education & Training, Safety Education & Training, Functional Mobility Training, Balance Training, Gait Training, Home Exercise Program Safety Devices Type of devices: All fall risk precautions in place, Nurse notified, Patient at risk for falls, Bedalarm in place, Left in bed, Call light within reach Restraints Initially in place: No Goals and/or treatment plan was established in collaboration with Halle. Plan of Care supervision transferred to Rehab Service Department Physical Therapist. AM-PAC Score [facility] Inpatient Mobility Raw Score : 10 (10/19/20 1026) AM-PAC Inpatient T-Scale Score : 32.29 (10/19/20 1026) Mobility Inpatient CMS 0-100% Score: 76.75 (10/19/20 1026) Mobility Inpatient CMS G-Code Modifier : CL (10/19/201025) Goals Short term goals Time Frame for Short term goals: 1 week. Short term goal 1: Halle will perform all bed mobility with minimum assistance. Short term goal 2: Halle will perform all transfers with minimum assistance. Short term goal 3: Halle will ambulate 10 feet using a FWW with maximum assistance. Patient Goals Patient goals : Would like to go home. Therapy Time Individual Concurrent Group Co-treatment Time In 0815 Time Out 0830 Minutes 15 Rene Maguire PT * Delbert Diaz MD - 10/19/2020 7:22 AM EST Hospitalist Progress Note 10/19/2020 7:22 AM [phone]: Please page hi [phone] for patient care issues. [phone]: Please page IMS night Hospitalist for any issues. Subjective: Admit Date: 10/15/2020 PCP: Kirby Dukes DO Interval History: No complaints today. Discussed US findings with patient. No overnight issues. Denies chest pain, sob, abdominal pain, nausea, vomiting, diarrhea, constipation, fevers, or chills. DIET RENAL; Carb Control: 4 carb choices (60 gms)/meal Patient Vitals for the past 96 hrs (Last 3 readings): Weight 10/19/20 0259 195 lb 14.4 oz (88.9 kg) 10/18/20 0311 188 lb 14.4 oz (85.7 kg) 10/16/20 0417 183 lb (83 kg) In: 240 [P.O.:240] Out: 600 [Urine:600] Medications: dextrose enalapril 10 mg Oral BID furosemide 20 mg Oral Daily carvedilol 6.25 mg Oral BID WC sodium chloride flush 10 mL Intravenous 2 times per day heparin (porcine) 5,000 Units Subcutaneous 3 times per day sodium chloride flush 10 mL Intracatheter Q8H epoetin dave-epbx 40,000 Units Subcutaneous Q7 Days cefdinir 300 mg Oral Daily polyethylene glycol 17 g Oral Daily insulin lispro 0-6 Units Subcutaneous TID WC ipratropium-albuterol 1 ampule Inhalation BID LABS: CBC: Recent Labs 10/17/20 0608 10/18/20 0514 10/19/20 0337 WBC 7.2 8.8 11.5* RBC 2.93* 2.83* 2.87* HGB 8.7* 8.6* 8.6* HCT 26.2* 25.1* 25.6* MCV 89.2 88.8 89.3 RDW 13.1 13.3 13.3 PLT 266 287 316 BMP: Recent Labs 10/18/20 0514 10/18/20 1522 10/19/20 0337 NA 139 137 136 K 3.9 3.8 3.3* CL 104 102 101 CO2 31* 33* 32* BUN 37* 33* 26* CREATININE 1.36* 1.25 1.15 GLUCOSE 106* 130* 129* CALCIUM 8.3* 8.1* 8.2* ANIONGAP 4 2 4 LIVER PROFILE: No results for input(s): AST, ALT, BILITOT, ALKPHOS, LABALBU, PROT in the last 72 hours. PT/INR: No results for input(s): PROTIME, INR in the last 72 hours. CARDIAC ENZYMES: No results for input(s): TROPONINI in the last 72 hours. Procalcitonin: No results found for: PROCAL Glucose: Recent Labs 10/17/20 1947 10/18/20 0718 10/18/20 1157 10/18/20 1439 10/18/20 1642 10/18/20 194 POCGLU 188* 116* 199* 146* 156* 168* Objective: Vitals: BP (!) 164/75 Pulse 77 Temp 99.5 F (37.5 C) (Temporal) Resp 20 Ht 4' 11 (1.499 m) Wt 195 lb 14.4 oz (88.9 kg) SpO2 92% BMI 39.57 kg/m Pulse Ox: SpO2 Av.9 % Min: 92 % Max: 98 % Supplemental O2: General appearance: No apparent distress, appears stated age and cooperative with exam; Obese elderly female HEENT: Normal cephalic, atraumatic without obvious deformity. Pupils equal, round, and reactive to light. Extra ocular muscles intact. Conjunctivae/corneas clear. Neck: Supple, with full range of motion. No jugular venous distention. Trachea midline. No lymphadenopathy. Respiratory: Normal respiratory effort. Clear to auscultation, bilaterally without Rales/Wheezes/Rhonchi. Cardiovascular: Regular rate and rhythm with normal S1/S2 without murmurs, rubs or gallops. Abdomen: Soft, non-tender, non-distended with normal bowel sounds. No rebound or guarding. Musculoskeletal: No clubbing, cyanosis or edema bilaterally. Full range of motion without deformity. Skin: Left arm swollen with pain around previous IV sites; Otherwise, Skin color, texture, turgor normal. No rashes or lesions. Neurologic: Neurovascularly intact without any focal sensory/motor deficits. Cranial nerves: II-XIIintact, grossly non-focal. Assessment 1. Acute Severe Hyperkalemia - Resolved; Nephrology following; Now Hypokalemic 2. Hyponatremia - Resolved 3. ISA 2/2 ATN (NSAIDs, SCOOBY, hypotension) - Nephrology following; Lasix today; SCOOBY resumed 4. NAGMA - Resolved 5. Acute Respiratory Insufficiency s/s COPD - On room air 6. COPD 7. E.coli UTI - Cefdinir for 3 days 8. Anemia -Stable 9. Left arm pain/ swelling - US without DVT/ phlebitis; Pain control 10. HTN 11. HFrEF 12. DM II 13. Obesity Diagnosis Date Allergic rhinitis Asthma Colon cancer screening 06/2019 neg Cologuard COPD (chronic obstructive pulmonary disease) ([facility]) 2011 Mild per PFTs- exsmoker since 1993 DDD (degenerative disc disease), cervical Diastolic heart failure ([facility]) 03/2020 EF 35 %- Supriya consult DVT (deep venous thrombosis) ([facility]) 06/2011 and PE post op oophorectomy Eczema Ex-smoker 1993 Gallstones 2010 asymptomatic H/O colonoscopy with polypectomy 2013 Dr. 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 PAH (pulmonary artery hypertension) ([facility]) 03/2020 workup pnd Renal cyst Type 2 diabetes mellitus ([facility]) 2010 diet controlled till 2014, DR TREJO Plan - Replace K - PT/OT - Placement? - Adjust medications -am labs, replace lytes prn -increase activity -DVT prophylaxis: [] Lovenox [x] Heparin [] SCDs [x] Encourage ambulation [] Already on Anticoagulation Advance Directive: Full Code Discharge planning: TBD Delbert Diaz MD Division of Hospitalist Medicine Inpatient Medical Services PAGER: [phone] * Alysia Don APRN - MANAGER OF CORPORATE - 10/19/2020 7:22 AM EST CARDIOLOGY PROGRESS NOTE Chart and interval events reviewed. Reason for Visit follow-up HF and ISA SUBJECTIVE: Halle Patel states I am ready to get out of here . Denies CP, SPB, PND, orthopnea,edema, palpitations, syncope. Only complaint is difficulty urinating. SCHEDULED MEDICATIONS: enalapril 10 mg Oral BID furosemide 20 mg Oral Daily carvedilol 6.25 mg Oral BID WC sodium chloride flush 10 mL Intravenous 2 times per day heparin (porcine) 5,000 Units Subcutaneous 3 times per day sodium chloride flush 10 mL Intracatheter Q8H epoetin dave-epbx 40,000 Units Subcutaneous Q7 Days cefdinir 300 mg Oral Daily polyethylene glycol 17 g Oral Daily insulin lispro 0-6 Units Subcutaneous TID WC ipratropium-albuterol 1 ampule Inhalation BID Active Problems: Hypertension Type 2 diabetes mellitus (HCC) Hyperkalemia HFrEF (heart failure with reduced ejection fraction) ([facility]) Metabolic acidosis ISA (acute kidney injury) ([facility]) Acute pain of left shoulder Debility Resolved Problems: * No resolved hospital problems. * Review of Systems: Review of Systems Constitutional: Negative for activity change, appetite change, fever and unexpected weight change. Rarely walking, uses walker HENT: Negative for congestion and mouth sores. Eyes: Negative for visual disturbance. Respiratory: Negative for choking, shortness of breath and wheezing. Cardiovascular: Negative for chest pain, palpitations and leg swelling. Gastrointestinal: Negative for diarrhea and vomiting. Genitourinary: Positive for difficulty urinating. Negative for dysuria and frequency. Musculoskeletal: Positive for arthralgias and back pain. Skin: Negative for rash and wound. Neurological: Negative for weakness. VITAL SIGNS: Vitals: 10/18/20 1939 10/18/20 2237 10/18/20 2347 10/19/20 0259 BP: (!) 147/73 (!) 142/96 (!) 164/75 Pulse: 71 72 77 Resp: 20 16 18 20 Temp: 98.7 F (37.1 C) 98.7 F (37.1 C) 99.5 F (37.5 C) TempSrc: Temporal Temporal Temporal SpO2: 96% 96% 94% 92% Weight: 195 lb 14.4 oz (88.9 kg) Height: Intake/Output Summary (Last 24 hours) at 10/19/2020 0722 Last data filed at 10/18/2020 2139 Gross per 24 hour Intake 600 ml Output 600 ml Net 0 ml Patient Vitals for the past 96 hrs (Last 3 readings): Weight 10/19/20 0259 195 lb 14.4 oz (88.9 kg) 10/18/20 0311 188 lb 14.4 oz (85.7 kg) 10/16/20 0417 183 lb (83 kg) Physical Exam: Physical Exam Vitals signs reviewed. Constitutional: General: She is not in acute distress. Appearance: Normal appearance. She is well-developed. She is obese. HENT: Head: Normocephalic and atraumatic. Eyes: General: No scleral icterus. Extraocular Movements: Extraocular movements intact. Neck: Musculoskeletal: Normal range of motion and neck supple. Vascular: No hepatojugular reflux or JVD. Cardiovascular: Rate and Rhythm: Normal rate and regular rhythm. Pulses: Dorsalis pedis pulses are 2+ on the right side and 2+ on the left side. Posterior tibial pulses are 2+ on the right side and 2+ on the left side. Heart sounds: S1 normal and S2 normal. Heart sounds are distant. No murmur. No friction rub. No gallop. No S3 or S4 sounds. Pulmonary: Effort: No accessory muscle usage or respiratory distress. Breath sounds: Normal breath sounds. No wheezing, rhonchi or rales. Abdominal: General: Bowel sounds are normal. There is no distension. Palpations: Abdomen is soft. Tenderness: There is no abdominal tenderness. Musculoskeletal: Normal range of motion. Right lower leg: No edema. Left lower leg: No edema. Skin: General: Skin is warm and dry. Coloration: Skin is not pale. Findings: No erythema or rash. Neurological: Mental Status: She is alert and oriented to person, place, and time. Data: Scheduled Meds: Reviewed Continuous Infusions: dextrose CBC: Recent Labs 10/18/20 0514 10/19/20 0337 WBC 8.8 11.5* HGB 8.6* 8.6* HCT 25.1* 25.6* PLT 287 316 BMP: Recent Labs 10/18/20 1522 10/19/20 0337 NA 137 136 K 3.8 3.3* CL 102 101 CO2 33* 32* BUN 33* 26* CREATININE 1.25 1.15 INR:No results for input(s): INR in the last 72 hours. No results for input(s): BNP in the last 72 hours. TSH: Lab Results Component Value Date TSH 2.501 10/17/2020 Cardiac Injury Profile: No results for input(s): CKTOTAL, CKMB, TROPONINI in the last 72 hours. Lipid Profile: Lab Results Component Value Date TRIG 108 06/23/2017 HDL 72 06/23/2017 CHOL 215 06/23/2017 EKG: See Report Telemetry Reviewed: SR Echo: See Report Echo: 04/08/2020 1. Procedure narrative: Image quality was suboptimal. The study was technically limited due to body habitus and respiratory interference. Intravenous imaging enhancement (Definity) was administered to opacify the chamber and enhance Doppler signals. 2. Left ventricle: Systolic function is moderately decreased by visual assessment. The estimated ejection fraction is 35%. There are no regional wall motion abnormalities. Features are consistent with a pseudonormal left ventricular filling pattern, with concomitant abnormal relaxation and increased filling pressure (grade 2 diastolic dysfunction). 3. Right ventricle: The RV pressure during systole by Doppler is 53 mm Hg. 4. Left atrium: The atrium is mildly dilated. 5. Right atrium: Central venous pressure (est): 8 mm Hg. 6. Signs of increased volume and pulmonary hypertension and elevated left sided filling pressures. IMPRESSIONS/RECOMMENDATIONS: HFrEF, uncertain etiology, EF 25-35%. Stage C, Class II. Euvolemic. - continue coreg - resume enalapril per nephrology, will start 10 mg po BID and titrate according to BP - stop hydralazine/nitrates - add spironolactone as OP if renal function/K+ remains stable - continue po lasix ISA with hyperkalemia 2/2 ACEi, spironolactone, diuretics and NSAID use - baseline creatinine 0.7 - peak creatinine 2.65 - creatinine today 1.15 (continues to improve) - Ok to resume ACEi per nephrology (see above) - no NSAIDS - K+ normalized HTN. BP labile - continue current meds Dispo: ok to discharge from cardiology standpoint. We will follow while she remains in the hospitalto titrate HF meds. Outpatient follow-up arranged with ONDINA Borja on 11/04/2020 at 9:45am Electronicallysigned by ARPAN Fitzpatrick CNP on 10/19/2020 at 7:22 AM * Evangelista Sue Jr., MD - 10/18/2020 2:00 PM EST Hematology/Oncology Attending Progress Note SUBJECTIVE: Patient seen and chart reviewed. No current bleed or thrombosis. Clinically better today. More alert with less confusion. OBJECTIVE BP 135/64 Pulse 63 Temp 97.4 F (36.3 C) (Temporal) Resp 18 Ht 4' 11 (1.499 m) Wt 188 lb 14.4 oz (85.7 kg) SpO2 98% BMI 38.15 kg/m Physical CONSTITUTIONAL: fatigued NECK: Supple, symmetrical, trachea midline, no adenopathy, thyroid symmetric, not enlarged and no tenderness, skin normal HEMATOLOGIC/LYMPHATICS: no cervical lymphadenopathy and no supraclavicular lymphadenopathy LUNGS: no increased work of breathing CARDIOVASCULAR: bradycardic with regular rhythm ABDOMEN: soft, distended and tenderness noted diffusely NEUROLOGIC: No focal signs. SKIN: no rashes Data Lab Results Component Value Date WBC 8.8 10/18/2020 HGB 8.6 (L) 10/18/2020 HCT 25.1 (L) 10/18/2020 MCV 88.8 10/18/2020 PLT 287 10/18/2020 Lab Results Component Value Date FERRITIN 233 10/17/2020 Lab Results Component Value Date IRON 98 10/17/2020 TIBC 295 10/17/2020 FERRITIN 233 10/17/2020 Lab Results Component Value Date [id number] 788 10/17/2020 Lab Results Component Value Date FOLATE >20.0 10/17/2020 Free T4 0.86 TSH 2.501 Uric Acid 5.3 Haptoglobin 120.8 LDH 327 ASSESSMENT AND PLAN No hemolysis. Tolerated Erythropoietin without incident. Will give Venofer today. Discussed with patient and rn staffing. Will continue to monitor. Total visit time > 35 minutes. * Shay Hsu MD - 10/18/2020 12:35 PM EST [facility] Progress Note Subjective/ 85 y.o. year old female who we are seeing in consultation for ISA. Made good urine. NAEON Some SOB +. ROS otherwise negative. No change in pfsh. Objective/ Vitals: 10/18/20 0311 10/18/20 0818 10/18/20 0903 10/18/20 1146 BP: 108/75 (!) 146/63 135/64 Pulse: 64 62 63 Resp: 26 18 18 18 Temp: 97.2 F (36.2 C) 97.3 F (36.3 C) 97.4 F (36.3 C) TempSrc: Temporal Temporal Temporal SpO2: 93% 96% 97% 98% Weight: 188 lb 14.4 oz (85.7 kg) Height: 24HR INTAKE/OUTPUT: Intake/Output Summary (Last 24 hours) at 10/18/2020 1235 Last data filed at 10/18/2020 1038 Gross per 24 hour Intake 360 ml Output 500 ml Net -140 ml Constitutional: Alert, awake, no apparent distress Head: AT NC Neck: No JVD, no thyromegaly Cardiovascular: S1, S2 without m/r/g Respiratory: Reduced BS at b/l bases posteriorly, no wheezing Abdomen: soft, nt Ext: No b/l LE edema, no tremor. Current Facility-Administered Medications Medication Dose Route Frequency Provider Last Rate Last Admin hydrALAZINE (APRESOLINE) tablet 25 mg 25 mg Oral 3 times per day Amari Melvin, DO 25 mg at 10/18/20 0500 isosorbide mononitrate (IMDUR) extended release tablet 30 mg 30 mg Oral Daily Amari Melvin, DO 30 mg at 10/18/20 0839 carvedilol (COREG) tablet 6.25 mg 6.25 mg Oral BID WC Amari Sorensontrstefanieo, DO 6.25 mg at 10/18/20 0839 glucose (GLUTOSE) 40 % oral gel 15 g 15 g Oral PRN Dewey P Apollo, COURT REPORTER - MANAGER OF CORPORATE dextrose 50 % IV solution 12.5 g Intravenous PRN Dewey P Apollo, COURT REPORTER - MANAGER OF CORPORATE glucagon (rDNA) injection 1 mg 1 mg Intramuscular PRN Deweyarmando Bustillos COURT REPORTER - MANAGER OF CORPORATE dextrose 5 % solution 100 mL/hr Intravenous PRN Dewey P Apollo COURT REPORTER - MANAGER OF CORPORATE sodium chloride flush 0.9 % injection 10 mL 10 mL Intravenous 2 times per day Dewey P Apollo COURT REPORTER - MANAGER OF CORPORATE 10 mL at 10/18/20 0841 sodium chloride flush 0.9 % injection 10 mL 10 mL Intravenous PRN DeweyARPAN Betancourt CNP heparin (porcine) injection 5,000 Units 5,000 Units Subcutaneous 3 times per day ARPAN Allison CNP 5,000 Units at 10/18/20 0500 albuterol (PROVENTIL) nebulizer solution 2.5 mg 2.5 mg Nebulization Q6H PRN ROB Allison CNP sodium chloride flush 0.9 % injection 10 mL 10 mL Intracatheter Q8H Bren Garcia APRN - MANAGER OF CORPORATE 10 mLat 10/17/20 1735 sodium chloride flush 0.9 % injection 10 mL 10 mL Intracatheter PRN ARPAN Foster CNP epoetin dave-epbx (RETACRIT) injection 40,000 Units 40,000 Units Subcutaneous Q7 Days Evangelista Cuevas MD 40,000 Units at 10/16/20 1342 cefdinir (OMNICEF) capsule 300 mg 300 mg Oral Daily Bren Garcia APRN - MANAGER OF CORPORATE 300 mg at 10/18/20 0840 polyethylene glycol (GLYCOLAX) packet 17 g 17 g Oral Daily Rachel Menon APRN - MANAGER OF CORPORATE 17 g at 10/18/20 0840 insulin lispro (HUMALOG) injection vial 0-6 Units 0-6 Units Subcutaneous TID WC Bren Garcia APRN- MANAGER OF CORPORATE 1 Units at 10/17/20 1247 ipratropium-albuterol (DUONEB) nebulizer solution 1 ampule 1 ampule Inhalation Q4H PRN Bren Garcia APRN - MANAGER OF CORPORATE ipratropium-albuterol (DUONEB) nebulizer solution 1 ampule 1 ampule Inhalation BID Bren Garcia APRN - MANAGER OF CORPORATE 1 ampule at 10/18/20 0859 dextrose Data/ Recent Labs 10/16/20 0719 10/17/20 0608 10/18/20 0514 WBC 7.4 7.2 8.8 HGB 8.1* 8.7* 8.6* HCT 24.6* 26.2* 25.1* MCV 89.0 89.2 88.8 PLT 278 266 287 Recent Labs 10/16/20 0719 10/16/20 0719 10/17/20 0608 10/17/20 1435 10/18/20 0514 NA 140 < > 137 139 139 K 6.4* < > 5.7* 4.9 3.9 CL 108* < > 105 104 104 CO2 22 < > 27 32* 31* GLUCOSE 147* < > 99 117* 106* PHOS 4.4 -- 4.3 -- 3.7 MG 1.7 -- 1.7 -- 1.7 BUN 63* < > 55* 45* 37* CREATININE 2.07* < > 1.67* 1.46* 1.36* < > = values in this interval not displayed. Assessment/ 1. Acute severe hyperkalemia. 2. ISA 2/2 ATN (hypotension, nsaids, scooby, diuresis) 3. NAGMA 4. 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 Hyponatremia- improving. 6. Obesity BMI 36 7. Bradycardia. 8. Anemia. Plan/ K and cr continues to improve. Overall better HR and BP as well. Start low dose lasix 20mg qday. Given okay BP, can start SCOOBY inhibitor as well if desired by cardiology. Lasix should keep hyperkalemia in check. Needs to be avoiding nsaids (indefinitely) and be cautiouswith K supplementation. Eventually may start spironolactone as well. / Okay to use additional diuretic prn (I/V lasix 40mg prn) for resp distress if needed. Complicated MDM. No hydronephrosis on CT abd/pelvis. Will follow Shay Hsu MD [facility] * Delbert Diaz MD - 10/18/2020 8:51 AM EST Hospitalist Progress Note 10/18/2020 8:51 AM [phone]: Please page hi [phone] for patient care issues. [phone]: Please page [facility] night Hospitalist for any issues. Subjective: Admit Date: 10/15/2020 PCP: Kirby Dukes DO Interval History: Transferred out of ICU yesterday. Doing well. Complaining of pain and swelling inthe left arm. No overnight issues. Denies chest pain, sob, abdominal pain, nausea, vomiting, diarrhea, constipation, fevers, or chills. DIET RENAL; Carb Control: 4 carb choices (60 gms)/meal Patient Vitals for the past 96 hrs (Last 3 readings): Weight 10/18/20 0311 188 lb 14.4 oz (85.7 kg) 10/16/20 0417 183 lb (83 kg) 10/15/20 2357 183 lb (83 kg) In: - Out: 500 [Urine:500] Medications: dextrose hydrALAZINE 25 mg Oral 3 times per day isosorbide mononitrate 30 mg Oral Daily carvedilol 6.25 mg Oral BID WC sodium chloride flush 10 mL Intravenous 2 times per day heparin (porcine) 5,000 Units Subcutaneous 3 times per day sodium chloride flush 10 mL Intracatheter Q8H epoetin dave-epbx 40,000 Units Subcutaneous Q7 Days cefdinir 300 mg Oral Daily polyethylene glycol 17 g Oral Daily insulin lispro 0-6 Units Subcutaneous TID WC ipratropium-albuterol 1 ampule Inhalation BID LABS: CBC: Recent Labs 10/16/20 0719 10/17/20 0608 10/18/20 0514 WBC 7.4 7.2 8.8 RBC 2.76* 2.93* 2.83* HGB 8.1* 8.7* 8.6* HCT 24.6* 26.2* 25.1* MCV 89.0 89.2 88.8 RDW 13.2 13.1 13.3 PLT 278 266 287 BMP: Recent Labs 10/17/20 0608 10/17/20 1435 10/18/20 0514 NA 137 139 139 K 5.7* 4.9 3.9 CL 105 104 104 CO2 27 32* 31* BUN 55* 45* 37* CREATININE 1.67* 1.46* 1.36* GLUCOSE 99 117* 106* CALCIUM 8.2* 8.3* 8.3* ANIONGAP 5 3 4 LIVER PROFILE: Recent Labs 10/15/20 1436 10/16/20 0029 AST 18 22 ALT 10 10 BILITOT 0.3 0.2 ALKPHOS 56 57 LABALBU 3.9 3.6 PROT 6.5 6.3 PT/INR: No results for input(s): PROTIME, INR in the last 72 hours. CARDIAC ENZYMES: Recent Labs 10/16/20 0029 TROPONINI <0.012 Procalcitonin: No results found for: PROCAL Glucose: Recent Labs 10/17/20 0731 10/17/20 1149 10/17/20 1620 10/17/20 1723 10/17/20 1947 10/18/20 0718 POCGLU 109* 156* 106* 119* 188* 116* Objective: Vitals: BP (!) 146/63 Pulse 62 Temp 97.3 F (36.3 C) (Temporal) Resp 18 Ht 4' 11 (1.499 m) Wt 188 lb 14.4 oz (85.7 kg) SpO2 96% BMI 38.15 kg/m Pulse Ox: SpO2 Av.3 % Min: 93 % Max: 99 % Supplemental O2: General appearance: No apparent distress, appears stated age and cooperative with exam; Obese elderly female HEENT: Normal cephalic, atraumatic without obvious deformity. Pupils equal, round, and reactive to light. Extra ocular muscles intact. Conjunctivae/corneas clear. Neck: Supple, with full range of motion. No jugular venous distention. Trachea midline. No lymphadenopathy. Respiratory: Normal respiratory effort. Clear to auscultation, bilaterally without Rales/Wheezes/Rhonchi. Cardiovascular: Regular rate and rhythm with normal S1/S2 without murmurs, rubs or gallops. Abdomen: Soft, non-tender, non-distended with normal bowel sounds. No rebound or guarding. Musculoskeletal: No clubbing, cyanosis or edema bilaterally. Full range of motion without deformity. Skin: Left arm swollen with pain around previous IV sites; Otherwise, Skin color, texture, turgor normal. No rashes or lesions. Neurologic: Neurovascularly intact without any focal sensory/motor deficits. Cranial nerves: II-XIIintact, grossly non-focal. Assessment 1. Acute Severe Hyperkalemia - Resolved; Nephrology following 2. Hyponatremia - Resolved 3. ISA 2/2 ATN (NSAIDs, SCOOBY, hypotension) - Nephrology following; Lasix today; SCOOBY when cardiology approves 4. NAGMA - Resolved 5. Acute Respiratory Insufficiency s/s COPD - On room air 6. COPD 7. E.coli UTI - Cefdinir for 3 days 8. Anemia -Stable 9. Left arm pain/ swelling - Check LUE US for phlebitis/ DVT 10. HTN 11. HFrEF 12. DM II 13. Obesity Diagnosis Date Allergic rhinitis Asthma Colon cancer screening 06/2019 neg Cologuard COPD (chronic obstructive pulmonary disease) ([facility]) 2011 Mild per PFTs- exsmoker since 1993 DDD (degenerative disc disease), cervical Diastolic heart failure ([facility]) 03/2020 EF 35 %- Supriya consult DVT (deep venous thrombosis) ([facility]) 06/2011 and PE post op oophorectomy Eczema Ex-smoker 1993 Gallstones 2010 asymptomatic H/O colonoscopy with polypectomy 2013 Dr. 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 PAH (pulmonary artery hypertension) ([facility]) 03/2020 workup pnd Renal cyst Type 2 diabetes mellitus ([facility]) 2010 diet controlled till 2014, DR MAYA HILL Doppler - PT/OT - Adjust medications -am labs, replace lytes prn -increase activity -DVT prophylaxis: [] Lovenox [x] Heparin [] SCDs [x] Encourage ambulation [] Already on Anticoagulation Advance Directive: Full Code Discharge plannin-48 hours Delbert Diaz MD Division of Hospitalist Medicine Inpatient Medical Services PAGER: [phone] * Alysia Don, ARPAN - MANAGER OF CORPORATE - 10/18/2020 8:39 AM EST CARDIOLOGY PROGRESS NOTE Chart and interval events reviewed. Reason for Visit follow-up HF, ISA SUBJECTIVE: Halle Patel states she has some mild lower abdominal pain this morning with gurgling . DeniesCP, SOB, PND, orthopnea, edema, palpitations, syncope. SCHEDULED MEDICATIONS: hydrALAZINE 25 mg Oral 3 times per day isosorbide mononitrate 30 mg Oral Daily carvedilol 6.25 mg Oral BID WC sodium chloride flush 10 mL Intravenous 2 times per day heparin (porcine) 5,000 Units Subcutaneous 3 times per day sodium chloride flush 10 mL Intracatheter Q8H epoetin dave-epbx 40,000 Units Subcutaneous Q7 Days cefdinir 300 mg Oral Daily polyethylene glycol 17 g Oral Daily insulin lispro 0-6 Units Subcutaneous TID ipratropium-albuterol 1 ampule Inhalation BID Active Problems: Hypertension Type 2 diabetes mellitus ([facility]) Hyperkalemia HFrEF (heart failure with reduced ejection fraction) ([facility]) Metabolic acidosis ISA (acute kidney injury) ([facility]) Acute pain of left shoulder Debility Resolved Problems: * No resolved hospital problems. * Review of Systems: Review of Systems Constitutional: Negative for activity change, appetite change, fever and unexpected weight change. Rarely walking, uses walker HENT: Negative for congestion and mouth sores. Eyes: Negative for visual disturbance. Respiratory: Negative for choking, shortness of breath and wheezing. Cardiovascular: Negative for chest pain, palpitations and leg swelling. Gastrointestinal: Negative for diarrhea and vomiting. Genitourinary: Positive for frequency. Negative for dysuria. Musculoskeletal: Positive for arthralgias and back pain. Skin: Negative for rash and wound. Neurological: Positive for weakness. VITAL SIGNS: Vitals: 10/17/20 2126 10/18/20 0003 10/18/20 0311 10/18/20 0818 BP: (!) 145/57 108/75 (!) 146/63 Pulse: 59 64 62 Resp: 20 26 18 Temp: 97.2 F (36.2 C) 97.2 F (36.2 C) 97.3 F (36.3 C) TempSrc: Temporal Temporal Temporal SpO2: 95% 93% 93% 96% Weight: 188 lb 14.4 oz (85.7 kg) Height: Intake/Output Summary (Last 24 hours) at 10/18/2020 0839 Last data filed at 10/18/2020 0526 Gross per 24 hour Intake 2184 ml Output 750 ml Net 1434 ml Patient Vitals for the past 96 hrs (Last 3 readings): Weight 10/18/20 0311 188 lb 14.4 oz (85.7 kg) 10/16/20 0417 183 lb (83 kg) 10/15/20 2357 183 lb (83 kg) Physical Exam: Physical Exam Vitals signs reviewed. Constitutional: General: She is not in acute distress. Appearance: Normal appearance. She is well-developed. She is obese. HENT: Head: Normocephalic and atraumatic. Eyes: General: No scleral icterus. Extraocular Movements: Extraocular movements intact. Neck: Musculoskeletal: Normal range of motion and neck supple. Vascular: No hepatojugular reflux or JVD. Cardiovascular: Rate and Rhythm: Normal rate and regular rhythm. Pulses: Dorsalis pedis pulses are 2+ on the right side and 2+ on the left side. Posterior tibial pulses are 2+ on the right side and 2+ on the left side. Heart sounds: S1 normal and S2 normal. Heart sounds are distant. No murmur. No friction rub. No gallop. No S3 or S4 sounds. Pulmonary: Effort: No accessory muscle usage or respiratory distress. Breath sounds: Normal breath sounds. No wheezing, rhonchi or rales. Abdominal: General: Bowel sounds are normal. There is no distension. Palpations: Abdomen is soft. Tenderness: There is no abdominal tenderness. Musculoskeletal: Normal range of motion. Right lower leg: No edema. Left lower leg: No edema. Skin: General: Skin is warm and dry. Coloration: Skin is not pale. Findings: No erythema or rash. Neurological: Mental Status: She is alert and oriented to person, place, and time. Data: Scheduled Meds: Reviewed Continuous Infusions: dextrose CBC: Recent Labs 10/17/20 0608 10/18/20 0514 WBC 7.2 8.8 HGB 8.7* 8.6* HCT 26.2* 25.1* PLT 266 287 BMP: Recent Labs 10/17/20 1435 10/18/20 0514 NA 139 139 K 4.9 3.9 CL 104 104 CO2 32* 31* BUN 45* 37* CREATININE 1.46* 1.36* INR:No results for input(s): INR in the last 72 hours. No results for input(s): BNP in the last 72 hours. TSH: Lab Results Component Value Date TSH 2.501 10/17/2020 Cardiac Injury Profile: Recent Labs 10/16/20 0029 TROPONINI <0.012 Lipid Profile: Lab Results Component Value Date TRIG 108 06/23/2017 HDL 72 06/23/2017 CHOL 215 06/23/2017 EKG: See Report Telemetry Reviewed: SR/SB Echo: 04/08/2020 1. Procedure narrative: Image quality was suboptimal. The study was technically limited due to body habitus and respiratory interference. Intravenous imaging enhancement (Definity) was administered to opacify the chamber and enhance Doppler signals. 2. Left ventricle: Systolic function is moderately decreased by visual assessment. The estimated ejection fraction is 35%. There are no regional wall motion abnormalities. Features are consistent with a pseudonormal left ventricular filling pattern, with concomitant abnormal relaxation and increased filling pressure (grade 2 diastolic dysfunction). 3. Right ventricle: The RV pressure during systole by Doppler is 53 mm Hg. 4. Left atrium: The atrium is mildly dilated. 5. Right atrium: Central venous pressure (est): 8 mm Hg. 6. Signs of increased volume and pulmonary hypertension and elevated left sided filling pressures. IMPRESSIONS/RECOMMENDATIONS: HFrEF, uncertain etiology, EF 25-35%. Stage C, Class II. Euvolemic. - continue coreg - continue hydralazine/nitrates - continue to hold lasix ISA with hyperkalemia 2/2 ACEi, spironolactone, diuretics and NSAID use - baseline creatinien 0.7 - peak creatinine 2.65 - creatinine today 1.36 (continues to improve) - continue to hold nephrotoxic agents - may consider adding back ACEi/spironolactone and diuretics as OP - no NSAIDS - continue hydralazine/nitrates - K+ normalized HTN. BP labile - continue current meds Dispo: will continue to follow Electronicallysigned by ARPAN Fitzpatrick CNP on 10/18/2020 at 8:39 AM * Reyna Najera RN - 10/17/2020 11:50 AM EST Report called to KETAN Ramos. Transfer to [facility] at this time. * Shay Hsu MD - 10/17/2020 11:47 AM EST [facility] Nephrology Progress Note Subjective/ 85 y.o. year old female who we are seeing in consultation for ISA. Made good urine. Vomiting x1 earlier today. Some SOB +. ROS otherwise negative. No change in pfsh. Objective/ Vitals: 10/17/20 0303 10/17/20 0700 10/17/20 1024 10/17/20 1101 BP: 106/77 Pulse: 57 Resp: 17 19 Temp: 98.2 F (36.8 C) 98.3 F (36.8 C) 98.1 F (36.7 C) TempSrc: Oral Oral Oral SpO2: 95% 99% Weight: Height: 24HR INTAKE/OUTPUT: Intake/Output Summary (Last 24 hours) at 10/17/2020 1147 Last data filed at 10/17/2020 1111 Gross per 24 hour Intake 4273 ml Output 2245 ml Net 2028 ml Constitutional: Alert, awake, no apparent distress Head: AT NC Neck: No JVD, no thyromegaly Cardiovascular: S1, S2 without m/r/g Respiratory: Reduced BS at b/l bases posteriorly, no wheezing Abdomen: soft, nt Ext: No b/l LE edema, no tremor. Current Facility-Administered Medications Medication Dose Route Frequency Provider Last Rate Last Admin glucose (GLUTOSE) 40 % oral gel 15 g 15 g Oral PRN Dewey Bustillos, COURT REPORTER - MANAGER OF CORPORATE dextrose 50 % IV solution 12.5 g Intravenous PRN Dewey Bustillos, COURT REPORTER - MANAGER OF CORPORATE glucagon (rDNA) injection 1 mg 1 mg Intramuscular PRN Dewey P Apollo, COURT REPORTER - MANAGER OF CORPORATE dextrose 5 % solution 100 mL/hr Intravenous PRN Dewey P Apollo COURT REPORTER - MANAGER OF CORPORATE sodium chloride flush 0.9 % injection 10 mL 10 mL Intravenous 2 times per day Deweyarmando Bustillos, COURT REPORTER - MANAGER OF CORPORATE 10 mL at 10/17/20 0740 sodium chloride flush 0.9 % injection 10 mL 10 mL Intravenous PRN Dewey Bustillos COURT REPORTER - MANAGER OF CORPORATE heparin (porcine) injection 5,000 Units 5,000 Units Subcutaneous 3 times per day Dewey Bustillos,COURT REPORTER - MANAGER OF CORPORATE 5,000 Units at 10/17/20 0612 albuterol (PROVENTIL) nebulizer solution 2.5 mg 2.5 mg Nebulization Q6H PRN Dewey Bustillos, COURT REPORTER- MANAGER OF CORPORATE sodium chloride flush 0.9 % injection 10 mL 10 mL Intracatheter Q8H Bren Acierno, COURT REPORTER - MANAGER OF CORPORATE 10 mLat 10/17/20 0738 sodium chloride flush 0.9 % injection 10 mL 10 mL Intracatheter PRN Bren Acierno, COURT REPORTER - MANAGER OF CORPORATE epoetin dave-epbx (RETACRIT) injection 40,000 Units 40,000 Units Subcutaneous Q7 Days Evangelista Cuevas MD 40,000 Units at 10/16/20 1342 cefdinir (OMNICEF) capsule 300 mg 300 mg Oral Daily Bren Howedwain COURT REPORTER - MANAGER OF CORPORATE 300 mg at 10/17/20 0751 polyethylene glycol (GLYCOLAX) packet 17 g 17 g Oral Daily Rachel Menon COURT REPORTER - MANAGER OF CORPORATE 17 g at 10/17/20 0948 insulin lispro (HUMALOG) injection vial 0-6 Units 0-6 Units Subcutaneous TID Bren Acierno, COURT REPORTER- MANAGER OF CORPORATE ipratropium-albuterol (DUONEB) nebulizer solution 1 ampule 1 ampule Inhalation Q4H PRN Bren Acierno, COURT REPORTER - MANAGER OF CORPORATE ipratropium-albuterol (DUONEB) nebulizer solution 1 ampule 1 ampule Inhalation BID Bren HoweierSHANTA costelloN - MANAGER OF CORPORATE 1 ampule at 10/17/20 1024 dextrose Data/ Recent Labs 10/15/20 1436 10/16/20 0719 10/17/20 0608 WBC 8.1 7.4 7.2 HGB 9.8* 8.1* 8.7* HCT 29.7* 24.6* 26.2* MCV 91.9 89.0 89.2 PLT 334 278 266 Recent Labs 10/16/20 0029 10/16/20 0719 10/16/20 0719 10/16/20 2211 10/17/20 0203 10/17/20 0608 NA 130* 140 < > 137 137 137 K 8.0* 6.4* < > 5.4* 5.4* 5.7* CL 108* 108* < > 104 104 105 CO2 16* 22 < > 29 29 27 GLUCOSE 87 147* < > 88 96 99 PHOS -- 4.4 -- -- -- 4.3 MG 2.0 1.7 -- -- -- 1.7 BUN 69* 63* < > 62* 57* 55* CREATININE 2.56* 2.07* < > 1.88* 1.82* 1.67* < > = values in this interval not displayed. Assessment/ 1. Acute severe hyperkalemia. 2. ISA 2/2 ATN (hypotension, nsaids, scooby, diuresis) 3. NAGMA 4. 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 Hyponatremia- improving. 6. Obesity BMI 36 7. Bradycardia. 8. Anemia. Plan/ K levels improving with medical management but still high. Repeating bicarb, kayexalate, insulin today for hyperkalemia. Got IVF since admission, appears to be starting to go into CHF. D/C IVF. D/C garcia catheter. Okay to diuretic prn (I/V lasix 40mg prn) for resp distress if needed. D/w ICU and patient's RN. Okay to transfer to the floors. Complicated MDM. No hydronephrosis on CT abd/pelvis. Will follow Shya Hsu MD [facility] * Alirio Monique MD - 10/17/2020 9:50 AM EST Patient transferred out of ICU onto hospitalist service. * Bren Garcia APRN - CNP - 10/17/2020 9:47 AM EST ICU TRANSFER CHECKLIST Transfer Med Reconciliation (resume home meds if able, convert to PO if able) Complete Antibiotics (name, indication, duration, convert to PO if able) Yes, addressed in today's progress note--for UTI Steroid (indication, duration, convert to PO if able) None Anticipated [place] Medications (ICU initiated) or Dose Changes and Indication No Permanently Discontinued Home Medications and Reason for medication contraindication No Garcia Catheter (please remove if able) Yes, indication accurate I&Os Central Line (please remove if able) No Transfer Discussed with: Dr. Monique ([facility]) If additional questions for ICU team within 24 hours of ICU transfer, page for clarifications. * Bren Garcia APRN - CNP - 10/17/2020 9:30 AM EST CRITICAL CARE DAILY PROGRESS NOTE Admit Date: 10/15/2020 PCP: Kirby Dukes DO Subjective Interval History: 85 yo F with PMHx DM2, HFrEF (35% 03/2020), prev ISA, COPD, HTN, Jehovah's wtinesspresented to PCP 10/15 for a medication check & lab work. Pt was hypotensive in office and coreg & clonidine were decreased at that time. Pt called and told to go to ED for ISA/Hyperkalemia. In ED Cr 2. 65, K+ 8.2, and pt bradycardic with HR 40s. Pt admitted to ICU for Acute renal failure with nephro c/s. EVENTS OF LAST 24 HOURS: Kidney fx improving, making good UO. Pt did pull out left IJ CVC last night while asleep per nursing--no complications thus far. Pt resting in bed denies pain, cp, palpitations, SOB at present. . Diet: DIET RENAL; Carb Control: 4 carb choices (60 gms)/meal Medications: Scheduled Meds: sodium chloride flush 10 mL Intravenous 2 times per day heparin (porcine) 5,000 Units Subcutaneous 3 times per day sodium chloride flush 10 mL Intracatheter Q8H epoetin dave-epbx 40,000 Units Subcutaneous Q7 Days cefdinir 300 mg Oral Daily polyethylene glycol 17 g Oral Daily insulin lispro 0-6 Units Subcutaneous TID WC ipratropium-albuterol 1 ampule Inhalation BID Continuous Infusions: dextrose sodium chloride 100 mL/hr at 10/16/20 2310 Objective: Vitals: BP 106/77 Pulse 57 Temp 98.3 F (36.8 C) (Oral) Resp 17 Ht 4' 11 (1.499 m) Wt 183lb (83 kg) SpO2 95% BMI 36.96 kg/m Intake/Output Summary (Last 24 hours) at 10/17/2020 0930 Last data filed at 10/17/2020 0809 Gross per 24 hour Intake 2089 ml Output 2345 ml Net -256 ml Date 10/16/20 0701 - 10/17/20 0700 10/17/20 0701 - 10/18/20 0700 Shift 5407-1174 5482-0064 5386-6299 24 Hour Total 9791-1097 7685-7764 5276-9304 24 Hour Total INTAKE P.O. 225 100 325 I.V. 1732 22 1754 10 10 Shift Total 9732 342 3809 10 10 OUTPUT Urine 9246 150 3204 2670 200 200 Shift Total 3054 211 1839 2670 200 200 [facility] 722 -313 -1000 -591 -190 -190 [facility] I/O: -1.4L Results: ABG: Recent Labs 10/16/20 0719 10/17/20 0608 PH 7.27* 7.37 CBC: Recent Labs 10/16/20 0719 10/17/20 0608 WBC 7.4 7.2 HGB 8.1* 8.7* PLT 278 266 BMP: Recent Labs 10/16/20 2211 10/17/20 0203 10/17/20 0608 NA 137 137 137 K 5.4* 5.4* 5.7* CL 104 104 105 CO2 29 29 27 BUN 62* 57* 55* CREATININE 1.88* 1.82* 1.67* GLUCOSE 88 96 99 . Ionized Calcium: Lab Results Component Value Date IONCA 4.30 10/17/2020 IONCA 4.70 10/16/2020 Hepatic: Recent Labs 10/15/20 1436 10/16/20 0029 AST 18 22 ALT 10 10 BILITOT 0.3 0.2 ALKPHOS 56 57 Troponin: Recent Labs 10/16/20 0029 TROPONINI <0.012 Lactate: Lab Results Component Value Date LACTA 0.8 10/16/2020 UA: Recent Labs 10/16/20 0209 COLORU Yellow WBCUA >100* RBCUA 11-25* BACTERIA Moderate* LEUKOCYTESUR 500* UROBILINOGEN Normal BILIRUBINUR Negative GLUCOSEU Normal AMORPHOUS Few* CULTURES: 10/16 Urine Cx: Pending Physical Exam Constitutional: Appearance: She is obese. Comments: Obese elderly female resting in bed in [facility] HENT: Head: Normocephalic and atraumatic. Nose: Nose normal. Mouth/Throat: Mouth: Mucous membranes are dry. Eyes: General: No scleral icterus. Pupils: Pupils are equal, round, and reactive to light. Neck: Musculoskeletal: Normal range of motion and neck supple. Cardiovascular: Rate and Rhythm: Regular rhythm. Bradycardia present. Heart sounds: No murmur. No friction rub. No gallop. Comments: No edema noted Pulmonary: Comments: CTA throughout lung menon, no use of accessory muscles on NC. Abdominal: General: Abdomen is flat. Bowel sounds are normal. Hernia: No hernia is present. Musculoskeletal: Comments: No digital clubbing, no cyanosis, CR<3secs Neurological: Mental Status: She is alert. Psychiatric: Comments: A&Ox3. Calm and cooperative Films: CXR: Results for orders placed during the hospital encounter of 10/15/20 XR CHEST PORTABLE Narrative Patient Name: HALLE PATEL Diagnostic Radiology ACCESSION EXAM DATE/TIME PROCEDURE ORDERING PROVIDER [id number] 10/16/2020 00:59 EST CR Chest Portable MD ALY KEVIN G CPT code 85385 Reason For Exam (CR Chest Portable) heart failure Report PORTABLE CHEST CLINICAL INDICATION: Heart failure TECHNIQUE: Portable AP COMPARISON: 04/01/2020 FINDINGS: Exam quality: EKG leads obscure small portions of the chest. The heart size is normal. Uncoiling of the thoracic aorta is noted. The lungs are clear. Costophrenic angles are sharp. Degenerative changes noted about the thoracic spine and shoulders. IMPRESSION: No acute abnormality Report Dictated on Workstation: [id number]-[id number] --- Final --- Dictating Physician: MD LAUREANO JEFFREY Signed Date and Time: 10/16/2020 1:12 am Signed by: MD LAUREANO JEFFREY Transcribed Date and Time: 10/16/2020 1:13 ECHO 04/08/20: 1. Procedure narrative: Image quality was suboptimal. The study was technically limited due to body habitus and respiratory interference. Intravenous imaging enhancement (Definity) was administered to opacify the chamber and enhance Doppler signals. 2. Left ventricle: Systolic function is moderately decreased by visual assessment. The estimated ejection fraction is 35%. There are no regional wall motion abnormalities. Features are consistent with a pseudonormal left ventricular filling pattern, with concomitant abnormal relaxation and increased filling pressure (grade 2 diastolic dysfunction). 3. Right ventricle: The RV pressure during systole by Doppler is 53 mm Hg. 4. Left atrium: The atrium is mildly dilated. 5. Right atrium: Central venous pressure (est): 8 mm Hg. 6. Signs of increased volume and pulmonary hypertension and elevated left sided filling pressures. CT A/P 10/16: 1. Cholelithiasis 2. No other acute abnormality throughout the abdomen and pelvis Assessment and Plan: ISA/Hyperkalemia/NAGMA/Hx ISA in past- Baseline Cr 0.62 in April. Insult likely 2/2 HF & DM meds+ daily Ibuprofen. Cr, K+, Bicarb all improving. Decrease MIVF to 75ml/hr, bmps to q8hrs, holding home meds, nephro following. Resp Insufficiency/Hx COPD- Stable on 2Lnc--Wean as able, cont prn meds Bradycardia- Improving. Likely 2/2 Home meds--hold at present. TSH nml. EKG with SB with wide QRS--in Jun 05 had wide qrs as well. Repeat EKG this AM unchanged. UTI- UA with 500 leuks, neg nitrates, mod bacteria. Per IDS change antibx to cefdinir x3 days (through 10/19/20). UC pending. Anemia: Nc/Nc- Hgb 8.7--hgb 11.4 on admit but was very dry at that time. No S&S of active bleeding. Pt is Denominational-- hem/onc following pt started on weekly epogen. Irons studies stable. Left shoulder pain- Per pt fall ~1months ago and has pain ever since. Has decreased ROM on exam. Films with no acute processes Hx HTN/HFrEF- Most recent ECHO 03/2020 with EF 35%, grade 2 DD, pHTN. 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 Will reconsult cards for medication adjust upon restarting Hx DM2- BGT controlled at present <180. Cont SSI & hold home amaryl. Hgb A1C 6.0. FEN- Tolerating PO diet without N/V. Replace electrolytes prn DVT prophy- heparin sq, scds Debility- Walker/wheelchair usage at home. PT/OT Obesity- BMI 36. Educated on need for weight loss reduction in order to optimize overall health. Code Status-full code at present. PC c/s--appreciate recs Dispo-Improving, transfer to tele today Plan discussed with Dr. Teran Associated attestation - Chino Teran MD - 10/17/2020 11:04 AM EST I have evaluated the patient and reviewed the case with the RELIGIOUS EDUCATOR. I agree with the current plan of care including the workup, evaluation, management, and diagnosis. Care plan has been discussed. I independently examined and evaluated the patient. The documentation below has been reviewed and edited as needed to reflect the findings of my evaluation. ISA/Severe hyperkalemia/NAGMA- Improving with IVF-Discussed with nephrology- Kayexalate-monitor BMP UTI-On PO ABX COPD- bd DM II-Monitor BS HTN/HFrEF(EF 35%)-hold antihypertensives due to lowish blood pressures, monitor blood pressure closely Anemia, normochromic normocytic hemoglobin is 8.1, probably hemodilution patient is a Yarsani * Alexander Baugh DTR - 10/17/2020 8:19 AM EST Nutrition rescreen complete. Pt assigned a level one for nutrition care. * Chela Brown, [facility] - 10/16/2020 9:30 PM EST Patient Evaluation Form The patient is currently receiving DUONEB Q4H Points 0 1 2 3 4 Points Totals Pulmonary Status (-/+) History Smoking history < 20 pack years Smoking history > 20 pack years Pulmonary Disorder (acute or chronic) Severe or Chronic with Exacerbation 3 Surgical Status No Surgery Trach PEG General Surgery Lower Abdominal Thoracic or Upper Abdominal Thoracic with Pulmonary Disorder 0 Chest X-ray Clear None Ordered Chronic Changes CXR results Pending Infiltrates, atelectasis, pleural effusion, or edema Infiltrates in more than one lobe Infiltrate + Atelectasis, &/or pleural effusion 0 Respiratory Pattern Regular, RR = 12-20 Increased, RR = 21-25 WRIGHT, irregular, or RR = 26-30 Decreased FEV1 or RR = 31-35 Severe SOB, used of of accessory muscles, or RR = > 35 0 Mental Status Alert, oriented, cooperative Confused, but follows commands Lethargic or un-able to follow commands Obtunded Comatose 0 Breath Sounds Clear to auscultation Decreased unilaterally or in bases only Decreased bilaterally Crackles or intermittent wheezes Wheezes 2 Cough Strong, spontaneous, & nonproductive Strong, spontaneous, & productive Weak, nonproductive Weak, productive or with wheezes No spontaneous cough or may require suctioning 0 Level of Activity Ambulatory Ambulatory with Assist Non-ambulatroy Paraplegic Quadriplegic 1 Triage 1 > 20 pts Triage 2 16-20 pts Triage 3 11- 15 pts Triage 4 6 - 10 pts Triage 5 0 - 5 pts TOTAL POINTS = 6 Triage Score = 4 Changing Therapy to DUONEB BID and PRN * Shyamdwain Bren, [facility] - MANAGER OF CORPORATE - 10/16/2020 12:13 PM EST CRITICAL CARE DAILY PROGRESS NOTE Admit Date: 10/15/2020 PCP: Kirby Dukes DO Subjective Interval History: 85 yo F with PMHx DM2, HFrEF (35% 03/2020), prev ISA, COPD, HTN, Jehovah's wtinesspresented to PCP 10/15 for a medication check & lab work. Pt was hypotensive in office and coreg & clonidine were decreased at that time. Pt called and told to go to ED for ISA/Hyperkalemia. In ED Cr 2. 65, K+ 8.2, and pt bradycardic with HR 40s. Pt admitted to ICU for Acute renal failure with nephro c/s on bicarb gtt. EVENTS OF LAST 24 HOURS: Hyperkalemia & acidosis improving this AM with good UO. Pt resting in bed denies CP, palpitations, SOB, lightheadedness, dizziness at present. Diet: DIET RENAL; Carb Control: 4 carb choices (60 gms)/meal Medications: Scheduled Meds: sodium chloride flush 10 mL Intravenous 2 times per day heparin (porcine) 5,000 Units Subcutaneous 3 times per day insulin lispro 0-6 Units Subcutaneous TID WC insulin lispro 0-3 Units Subcutaneous Nightly sodium chloride flush 10 mL Intracatheter Q8H cefdinir 300 mg Oral Daily epoetin dave-epbx 40,000 Units Subcutaneous Q7 Days Continuous Infusions: dextrose sodium chloride Objective: Vitals: BP (!) 122/90 Pulse 58 Temp 97.8 F (36.6 C) (Oral) Resp 14 Ht 4' 11 (1.499 m) Wt183 lb (83 kg) SpO2 95% BMI 36.96 kg/m Intake/Output Summary (Last 24 hours) at 10/16/2020 1214 Last data filed at 10/16/2020 1101 Gross per 24 hour Intake Output 1750 ml Net -1750 ml Date 10/15/20 0701 - 10/16/20 0700 10/16/20 0701 - 10/17/20 0700 Shift 0451-6307 4054-8989 1043-3681 24 Hour Total 9001-4113 4703-9541 9049-0063 24 Hour Total INTAKE Shift Total OUTPUT Urine 875 875 875 875 Shift Total 875 875 875 875 NET -875 -875 -875 -875 Invasive Lines: CVC Left IJ TLC (Placed 10/16) Results: ABG: Recent Labs 10/16/20 0719 PH 7.27* CBC: Recent Labs 10/15/20 1436 10/16/20 0719 WBC 8.1 7.4 HGB 9.8* 8.1* PLT 334 278 BMP: Recent Labs 10/16/20 0029 10/16/20 0719 10/16/20 1103 NA 130* 140 137 K 8.0* 6.4* 5.4* CL 108* 108* 101 CO2 16* 22 28 BUN 69* 63* 64* CREATININE 2.56* 2.07* 2.08* GLUCOSE 87 147* 231* . Ionized Calcium: Lab Results Component Value Date IONCA 4.70 10/16/2020 Hepatic: Recent Labs 10/15/20 1436 10/16/20 0029 AST 18 22 ALT 10 10 BILITOT 0.3 0.2 ALKPHOS 56 57 Troponin: Recent Labs 10/16/20 0029 TROPONINI <0.012 Lactate: Lab Results Component Value Date LACTA 0.8 10/16/2020 UA: Recent Labs 10/16/20 0209 COLORU Yellow WBCUA >100* RBCUA 11-25* BACTERIA Moderate* LEUKOCYTESUR 500* UROBILINOGEN Normal BILIRUBINUR Negative GLUCOSEU Normal AMORPHOUS Few* CULTURES: 10/16 Urine Cx: Pending Physical Exam Constitutional: Appearance: She is obese. Comments: Obese elderly female resting in bed in NAD HENT: Head: Normocephalic and atraumatic. Nose: Nose normal. Mouth/Throat: Mouth: Mucous membranes are dry. Eyes: General: No scleral icterus. Pupils: Pupils are equal, round, and reactive to light. Neck: Musculoskeletal: Normal range of motion and neck supple. Cardiovascular: Rate and Rhythm: Regular rhythm. Bradycardia present. Heart sounds: No murmur. No friction rub. No gallop. Comments: No edema noted Pulmonary: Comments: CTA throughout lung menon, no use of accessory muscles on NC. Abdominal: General: Abdomen is flat. Bowel sounds are normal. Hernia: No hernia is present. Musculoskeletal: Comments: No digital clubbing, no cyanosis, CR<3secs Neurological: Mental Status: She is alert. Psychiatric: Comments: A&Ox3. Calm and cooperative Films: CXR: Results for orders placed during the hospital encounter of 10/15/20 XR CHEST PORTABLE Narrative Patient Name: HALLE PATEL Diagnostic Radiology ACCESSION EXAM DATE/TIME PROCEDURE ORDERING PROVIDER [id number] 10/16/2020 00:59 EST CR Chest Portable MD ALY KEVIN G CPT code 59992 Reason For Exam (CR Chest Portable) heart failure Report PORTABLE CHEST CLINICAL INDICATION: Heart failure TECHNIQUE: Portable AP COMPARISON: 04/01/2020 FINDINGS: Exam quality: EKG leads obscure small portions of the chest. The heart size is normal. Uncoiling of the thoracic aorta is noted. The lungs are clear. Costophrenic angles are sharp. Degenerative changes noted about the thoracic spine and shoulders. IMPRESSION: No acute abnormality Report Dictated on Workstation: [facility]-REMOTE --- Final --- Dictating Physician: MD LAUREANO JEFFREY Signed Date and Time: 10/16/2020 1:12 am Signed by: MD LAUREANO JEFFREY Transcribed Date and Time: 10/16/2020 1:13 ECHO 04/08/20: 1. Procedure narrative: Image quality was suboptimal. The study was technically limited due to body habitus and respiratory interference. Intravenous imaging enhancement (Definity) was administered to opacify the chamber and enhance Doppler signals. 2. Left ventricle: Systolic function is moderately decreased by visual assessment. The estimated ejection fraction is 35%. There are no regional wall motion abnormalities. Features are consistent with a pseudonormal left ventricular filling pattern, with concomitant abnormal relaxation and increased filling pressure (grade 2 diastolic dysfunction). 3. Right ventricle: The RV pressure during systole by Doppler is 53 mm Hg. 4. Left atrium: The atrium is mildly dilated. 5. Right atrium: Central venous pressure (est): 8 mm Hg. 6. Signs of increased volume and pulmonary hypertension and elevated left sided filling pressures. CT A/P 10/16: 1. Cholelithiasis 2. No other acute abnormality throughout the abdomen and pelvis Assessment and Plan: ISA/Hyperkalemia/NAGMA/Hx ISA in past- Baseline Cr 0.62 in April. Insult likely 2/2 HF & DM meds+ daily Ibuprofen. Cr, K+, Bicarb all improving. Check urine gap/lyts, change MIVF to NS, continue serial bmps, holding home meds, nephro following-- Likely will not need HD if continues to improve Resp Insufficiency/Hx COPD- Stable on 2Lnc--Wean as able, cont prn meds Bradycardia- likely 2/2 Home meds--hold at present, check tsh/uric acid. EKG with SB with wide QRS--in Jun 05 had wide qrs, HR 64. Repeat EKG in AM. UTI- UA with 500 leuks, neg nitrates, mod bacteria. Per IDS change antibx to cefdinir x3 days. UC pending. Anemia: Nc/Nc- Hgb 8.1--hgb 11.4 on admit but was very dry at that time. No S&S of active bleeding. Pt is Denominational--c/s hem/onc on opinion for ?Epogen. Check iron studies, haptoglobin, folate Left shoulder pain- Per pt fall ~1months ago and has pain ever since. Has decreased ROM on exam. F/u on films Hx HTN/HFrEF- Most recent ECHO 03/2020 with EF 35%, grade 2 DD, pHTN. 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 Hx DM2- BGT uncontrolled at present >180. Increase to moderate SSI. Continue to hold home amaryl. Hgb A1C 6.0. FEN- Tolerating PO diet without N/V. Replace electrolytes prn DVT prophy- heparin sq, scds Debility- Walker/wheelchair usage at home. PT/OT Obesity- BMI 36. Educated on need for weight loss reduction in order to optimize overall health. Code Status-full code at present. PC c/s--appreciate recs Dispo- Pt to remain in icu for ongoing care Plan discussed with Dr. Teran Associated attestation - Chino Teran MD - 10/16/2020 3:07 PM EST I have evaluated the patient and reviewed the case with the RELIGIOUS EDUCATOR. I agree with the current plan of care including the workup, evaluation, management, and diagnosis. Care plan has been discussed. I independently examined and evaluated the patient. The documentation below has been reviewed and edited as needed to reflect the findings of my evaluation. Issues ISA/Severe hyperkalemia/NAGMA- Improving with IVF-Discussed with nephrology UTI-On PO ABX COPD- bd DM II-Monitor BS HTN/HFrEF(EF 35%)-hold antihypertensives due to lowish blood pressures, monitor blood pressure closely Anemia, normochromic normocytic hemoglobin is 8.1, probably hemodilution L patient is a Yarsani if further disease degrees and he will hemoglobin may consider Epogen if okay with patient documented in this encounter Summary Purpose Family History No Family History Records FoundNo Family History Records FoundNo Family History Records FoundNo Family History Records FoundNo Family History Records Found Additional Source Comments Reason for Visit (unrecogniz ed section and content) Reason Comments Other abnormal labs Reason Onset Date Comments Other 11/05/2022 Reason Onset Date Comments OTHER 02/07/2023 Reason Onset Date Comments home healthaid nurse 02/11/2023 Reason Comments Med Refill Reason Onset Date Comments Copd Outreach 03/11/2023 Reason Onset Date Comments Med Refill 03/30/2023 Reason Onset Date Comments Med Refill 05/04/2023 Reason Onset Date Comments Med Refill 06/01/2023 Reason Onset Date Comments really needs home care help since January has been working 07/06/2023 Reason Comments face to face Reason Comments Follow-up Reason Onset Date Comments Appointment 07/08/2023 Reason Onset Date Comments Orders 08/03/2023 Reason Onset Date Comments Orders 08/04/2023 Reason Onset Date Comments Med Refill 08/24/2023 Reason Comments Follow-up Congestive Heart Failure Reason Onset Date Comments Med Refill 09/26/2023 Reason Onset Date Comments Rash 10/18/2023 Reason Onset Date Comments Referral 10/21/2023 Reason Onset Date Comments Med Refill 11/04/2023 Reason Onset Date Comments Epidemic Concern 07/03/2023 Reason Onset Date Comments Appointment 11/16/2023 Ordered Prescriptions (unrec ognized section and content) INFORMATION SOURCE (unrecogn ized section and content) DATE CREATED AUTHOR AUTHOR'S ORGANIZ ATION 10/01/2021 [facility] DATE CREATED AUTHOR AUTHOR'S ORGANIZ ATION 11/18/2021 [facility] DATE CREATED AUTHOR AUTHOR'S ORGANIZ ATION 06/12/2022 [facility] DATE CREATED AUTHOR AUTHOR'S ORGANIZ ATION 11/22/2023 [facility] Care Teams (unrecognized sec tion and content) Data Collection Associate Relationship Specialty Start Date End Date Kirby Dukes, DO [address] [place] [address] PCP - General 03/17/19 Data Collection Associate Relationship Specialty Start Date End Date Ernst Kirby Rossi, DO [address] [place] [address] PCP - General 03/17/19 Data Collection Associate Relationship Specialty Start Date End Date Ernst Kirby Enid, DO [address] [place] [address] PCP - General 03/17/19 Data Collection Associate Relationship Specialty Start Date End Date Kirby Dukes, DO [address] [place] [address] PCP - General 03/17/19 Data Collection Associate Relationship Specialty Start Date End Date Kirby Dukes, DO [address] [place] [address] PCP - General 03/17/19 Data Collection Associate Relationship Specialty Start Date End Date Kirby Dukes DO [address] [place] [address] PCP - General 03/17/19 Data Collection Associate Relationship Specialty Start Date End Date Kiryb Dukes DO [address] [place] [address] PCP - General 03/17/19 Data Collection Associate Relationship Specialty Start Date End Date Kirby Dukes, [address] [place] [address] PCP - General 03/17/19 Data Collection Associate Relationship Specialty Start Date End Date Kirby Dukes, [address] [place] [address] PCP - General 03/17/19 Data Collection Associate Relationship Specialty Start Date End Date Kirby Dukes, [address] [place] [address] PCP - General 03/17/19 Data Collection Associate Relationship Specialty Start Date End Date Kirby Dukes DO [address] [place] [address] PCP - General 03/17/19 Data Collection Associate Relationship Specialty Start Date End Date Kirby Dukes, [address] [place] [address] PCP - General 03/17/19 Data Collection Associate Relationship Specialty Start Date End Date Kirby Dukes, [address] [place] [address] PCP - General 03/17/19 Data Collection Associate Relationship Specialty Start Date End Date Kirby Dukes, DO [address] [place] [address] PCP - General 03/17/19 Data Collection Associate Relationship Specialty Start Date End Date Kirby Dukes, DO [address] [place] [phone] PCP - General 03/17/19 Data Collection Associate Relationship Specialty Start Date End Date Kirby Dukes, DO [address] [place] [phone] PCP - General 03/17/19 Data Collection Associate Relationship Specialty Start Date End Date Kirby Dukes, DO [address] [place] [phone] PCP - General 03/17/19 Data Collection Associate Relationship Specialty Start Date End Date Kirby Dukes, DO [address] [place] [phone] PCP - General 03/17/19 Data Collection Associate Relationship Specialty Start Date End Date Kirby Dukes, DO [address] [place] [phone] PCP - General 03/17/19 Data Collection Associate Relationship Specialty Start Date End Date Kirby Dukes DO [address] [place] [phone] PCP - General 03/17/19 Data Collection Associate Relationship Specialty Start Date End Date Kirby Dukes DO [address] [place] [address] PCP - General 03/17/19 Data Collection Associate Relationship Specialty Start Date End Date Kirby Dukes DO [address] [place] [address] PCP - General 03/17/19 Data Collection Associate Relationship Specialty Start Date End Date Kirby Dukes DO [address] [place] [phone] PCP - General 03/17/19 Data Collection Associate Relationship Specialty Start Date End Date Kirby Dukes DO [address] [place] [phone] PCP - General 03/17/19 Data Collection Associate Relationship Specialty Start Date End Date Kirby Dukes DO [address] [place] [phone] PCP - General 03/17/19 FOR RECORDS PERTAINING TO PATIENTS WHO ARE OR HAVE BEEN ENROLLED IN A CHEMICAL DEPENDENCY/SUBSTANCEABUSE PROGRAM, SOME INFORMATION MAY BE OMITTED. This clinical summary was aggregated from multiple sources. Caution should be exercised in using it in the provision of clinical care. This summary normalizes information from multiple sources, and as a consequence, information in this document may materially change the coding, format and clinical context of patient data. In addition, data may be omitted in some cases. CLINICAL DECISIONS SHOULD BE BASED ON THE PRIMARY CLINICAL RECORDS. [facility], [employer] [facility]. provides no warranty or guarantee of the accuracy or completeness of information in this document.
[2023-11-25] MEDS: hydrALAZINE 25 MG Tablet PO ×2 (14:09→21:28)
[2023-11-25] MEDS: Potassium Chloride Oral Tablet 20 MEQ 40 MEQ PO (14:09)
[2023-11-25] MEDS: Lisinopril 20 MG Tablet PO ×2 (14:09→21:28)
[2023-11-25] MEDS: Albuterol 2.5 MG/3 ML VIAL.NEB. INHALATION ×2 (14:27→19:19)
--- NOTE | 2023-11-25 14:29 | CPS ---
Pt was wheezing in throat. RT does not hear wheezing in lungs
--- NOTE | 2023-11-25 14:47 | CASEMGMT ---
RN CM Face to Face with patient for initial transition planning/care coordination assessment. RN CM introduced self and role at [facility]. Patient lying in bed, alert and oriented, at bedside. Patient and willing to participate in assessment and are able to answer all questions appropriately. Care providers, pharmacy, and demographics verified. wishes for patient to discharge home, will monitor for HHC vs SNF pending course of treatment and progress with therapy. states he has no further needs or concerns at this time. CM to follow for discharge planning needs that may arise. PCP: Ernst Specialists: Nabor Alvarez Mold Maker Helper; Preferred Pharmacy: [facility] Insurance: [employer] Prescription Benefit: yes Living Will/HPOA: yes, Kaiden Amos LNOK: , daughter Living Arrangements: Patient lives with in a mobile home with ramp to enter. assists patient with ADLs. Transportation: , [place] [facility]: Patient has shower chair, BSC, lift chair, grab bars., rollator, transport wheelchair, electric wheelchair, pulse ox, glucometer, and sit to stand. [facility] Patient [facility]. Disposition Plan: TBD, anticipate HHC vs SNF pending course or treatment and progress with therapy. Jessica ANGELES, RN, CM
--- NOTE | 2023-11-25 15:11 | CASEMGMT ---
Social Work Pt has services through [facility]. Phone call to the coverage line at [facility] and updated Stevan on pt's admission. Pt's nurse wound care is Yareli Ashton. Pt has home health aid services through [facility] thru for 4 hours and 5 hours on Tuesday. Pt also have 7 home delivered meals a week and an emergency response system. Pt has been approved for [facility], but uncertain if she attends. SW to update [facility] at time of discharge. LIONEL Galvan
[2023-11-25] MEDS: Carvedilol 3.125 MG TABLET PO (16:31)
[2023-11-25] MEDS: Insulin Lispro 100 UNIT/ML INSULN.PEN SC (16:32)
[2023-11-25] MEDS: Insulin Glargine-YFGN 100 UNIT/ML Pen 10 UNIT SC (16:32)
[2023-11-25 16:45] LABS: Bedside Glucose 241 mg/dL (74-106)
[2023-11-25] MEDS: Ibuprofen 600 MG Tablet PO (18:38)
[2023-11-25] MEDS: Budesonide Respules 0.5 MG/2 ML AMPUL.NEB. INHALATION (19:19)
[2023-11-25] MEDS: oxyCODONE 5 MG Tablet 10 MG PO (20:30)
[2023-11-25] MEDS: Heparin Injection (Vial) 5,000 UNIT/ML VIAL 5000 UNIT SC (21:30)
[2023-11-25] MEDS: Atorvastatin Calcium 20 MG Tablet PO (21:31)
[2023-11-25 22:27] LABS: Bedside Glucose 142 mg/dL (74-106)
[2023-11-26] VITALS (11 sets, daily range): BP systolic 106–138; BP diastolic 46–62; PULSE 53–66; RESP 16–19; TEMP 36.3–37.3; O2SAT 90–99; BMI 37.2
[2023-11-26] MEDS: hydrALAZINE 25 MG Tablet PO ×2 (05:31→22:10)
[2023-11-26] MEDS: Insulin Lispro 100 UNIT/ML INSULN.PEN SC ×4 (06:39→22:11)
[2023-11-26 06:58] LABS: Bedside Glucose 165 mg/dL (74-106)
[2023-11-26] MEDS: Budesonide Respules 0.5 MG/2 ML AMPUL.NEB. INHALATION ×2 (07:29→19:32)
[2023-11-26] MEDS: Albuterol 2.5 MG/3 ML VIAL.NEB. INHALATION ×3 (07:29→19:32)
--- NOTE | 2023-11-26 08:20 | PCM.PN.HOSP ---
Reason for Visit Reason for Visit: Diagnoses Other fracture of upper and lower end of left fibula, initial encounter for closed fracture (11/25/23) Displaced bimalleolar fracture of left lower leg, initial encounter for closed fracture (11/25/23) Displaced pilon fracture of left tibia, initial encounter for closed fracture (11/25/23) Subjective Subjective Patient seen breathing is more labored than the day prior. Auscultation of the lungs demonstrated bilateral crackles. Requested for checks x-ray. Patient potassium is 3.2 additional replacement given Objective Data Objective Data Vital Signs: Vital Signs Temp Pulse Resp BP Pulse Ox O2 Del Method O2 Flow Rate 97.4 F L 53 L 19 H 138/56 H 99 Nasal Cannula 2 11/26/23 02:40 11/26/23 07:22 11/26/23 07:22 11/26/23 05:31 11/26/23 07:22 11/26/23 07:22 11/26/23 07:22 Oxygen Flow Rate (L/min) 2 Oxygen Delivery Method Nasal Cannula Weight: 86 kg Body Mass Index (BMI) 37.2 Intake & Output: Intake and Output for Last 24 Hours 11/24/23 11/25/23 11/26/23 23:59 23:59 23:59 Intake Total 250 / 250 Output Total 350 / 500 200 / 200 Balance -350 / -350 50 / 50 Lab / Micro Data 11/25/23 10:31 11/25/23 10:31 Labs: Laboratory Results - last 24 hr 11/25/23 10:31: WBC 13.0 H, RBC 3.99 L, Hgb 11.3 L, Hct 34.7 L, MCV 87.0, MCH 28.3, MCHC 32.6, RDW Std Deviation 41.4, RDW Coeff of Yasir 13.1, Plt Count 280, MPV 10.5, Immature Gran % (Auto) 0.300, Neut % (Auto) 80.4 H, Lymph % (Auto) 11.7 L, Whiteside % (Auto) 6.6, Eos % (Auto) 0.7, Baso % (Auto) 0.3, Absolute Neuts (auto) 10.4 H, Absolute Lymphs (auto) 1.51, Nucleated RBC % 0, Sodium 138, Potassium 3.2 L, Chloride 100, Carbon Dioxide 33.0 H, Anion Gap 5, BUN 13, Creatinine 0.96, Est GFR (MDRD) Af Amer 70, Est GFR (MDRD) Non-Af 58 L, BUN/Creatinine Ratio 13.5, Glucose 207 H, Calcium 9.3 11/25/23 16:23: POC Glucose 241 H 11/25/23 21:34: POC Glucose 142 H 11/26/23 06:38: POC Glucose 165 H Radiography Diagnostic Testing: Radiology Impression Ankle X-Ray 11/25/23 09:15 IMPRESSION: Suspected fracture of the medial malleolus of the distal tibia. Oblique fracture of the distal fibula. Plantar and posterior calcaneal spurs. Soft tissue swelling around the ankle. Electronically Signed: Mio Schroeder MD at 10:32 EST , Knee X-Ray 11/25/23 09:15 IMPRESSION: Diffuse osteopenia. Fracture of the lateral aspect of the lateral tibial plateau. Nondisplaced fracture of the proximal fibular metadiaphysis. Large joint effusion. Electronically Signed: Mio Schroeder MD at 10:29 EST , Chest X-Ray 11/25/23 10:45 IMPRESSION: Borderline cardiomegaly. The lungs are clear. Electronically Signed: Edgardo Lennon MD at 10:58 EST , Rhythm Strip Rhythm Strip: Sinus Rhythm Rate: 75 Ectopy: PVC(s) Physical Exam Narrative GENERAL: cooperative HEENT: Atraumatic; normocephalic EYES; Anicteric, Normal Conjunctiva NECK; supple, normal thyroid, RESPIRATORY: Diminished to auscultation with bilateral crackles CARDIOVASCULAR: Regular S1 S2, GI: soft, normoactive bowel sounds, : No Renal angle tenderness; EXTREMITIES: edema, no clubbing, MUSCULOSKELETAL: Left lower extremity immobilized from the knee to the ankle NEURO: Awake; no lateralizing signs. SKIN: No Rash PSYCH; Flat affect Assessment & Plan Assessment/Plan (1) Bimalleolar fracture of left ankle: QUALIFIERS: Encounter type: initial encounter Fracture type: closed Qualified Code(s): S82.842A - Displaced bimalleolar fracture of left lower leg, initial encounter for closed fracture (2) Fracture of left tibial plafond with involvement of fibula: QUALIFIERS: Encounter type: initial encounter Fracture type: closed Qualified Code(s): S82.872A - Displaced pilon fracture of left tibia, initial encounter for closed fracture; S82.832A - Other fracture of upper and lower end of left fibula, initial encounter for closed fracture PLAN: Plan Patient is an 88-year-old lady admitted following a fall 1. Fall with left knee and ankle fracture ? Imaging studies demonstrated fracture of the lateral aspect of the lateral tibial plateau. Nondisplaced fracture of the proximal fibular metadiaphysis. Large joint effusion. Suspected fracture of the medial malleolus of the distal tibia. Oblique fracture of the distal fibula. Plantar and posterior calcaneal spurs. Soft tissue swelling around the ankle. Patient underwent immobilization in the ED orthopedic surgeon on-call Dr. Toeldo was notified prior to patient being admitted to regular nursing floor 11/26/2023; patient pain relatively well-controlled awaiting Ortho consult 2. GERD ? On PPI 3. Dyslipidemia -Patient is on statin therapy, continued at home dose 4. Diabetes mellitus type II -patient's oral hypoglycemics held. Placed on long acting insulin, Accu-Cheks a.c. and at bedtime and covered with sliding scale insulin 5. Acute on chronic chronic congestive heart failure ? Suspected heart failure with preserved ejection fraction; Patient is on furosemide did continue ? 11/26/2023 patient appears to be in acute congestive heart failure, IV Lasix given. Ordered checks x-ray and a 2D echo 6. Mild intermittent asthma ? Patient is on bronchodilator treatment at home did continue 7. Class II obesity with BMI 37 ? Complicating care, weight loss advised 8. Hypertension - Blood pressure controlled, home medications continued with dose adjustment as needed 9. Hypokalemia ? Corrected per protocol ? 11/26/2023; potassium 3.2 additional replacement given 10. Mild anemia ? Secondary to anemia of chronic disorder monitoring H&H with plans to transfuse if patient becomes symptomatic or hemoglobin falls below 7 11. DVT prophylaxis ? SC heparin Time spent in the patient's overall evaluation,decision-making process, review of diagnostic data, adjustment of management, discussion with other providers, nursing nursing and ancillary staff involved in patient's care documentation, 50 Charges/Coding Visit Charges Inpatient E&M: 75857 Subs Hosp L3
--- NOTE | 2023-11-26 08:27 | ECHOCS_ITS ---
Reason For Study: CONGESTIVE HEART FAILURE Procedure This was a 2D Doppler, Color Flow transthoracic echocardiogram. The study was technically difficult. Patient was scanned in supine position during reflux assessment. Contrast injection was performed. Exam performed portable in patient room. Left Ventricle Normal LV size. Mild concentric left ventricular hypertrophy. The left ventricular ejection fraction is 55 %. Normal diastology for age. Right Ventricle Normal right ventricle. Atria The left and right atria are normal. Mitral Valve Mild focal mitral valve calcification. Trivial mitral valve insufficiency. Tricuspid Valve Mild tricuspid valve insufficiency. Right ventricular systolic pressure estimated to be 40 mmHg. Aortic Valve Mild focal aortic valve calcification. There is no aortic stenosis. No aortic valve insufficiency. Pulmonic Valve The pulmonic valve is not well visualized. Great Vessels Normal sized aortic root. Pericardium/Pleural No pericardial effusion. Medication Diluted definity 2ml given slow IV push to enhance endocardial definition. MMode/2D Measurements & Calculations LVIDd: 4.3 cm IVSd: 1.2 cm LVOT diam: 2.0 cm LVIDs: 2.8 cm LVPWd: 1.1 cm RVDd: 3.2 cm FS: 35.0 % LVOT area: 3.2 cm2 Ao root diam: 3.0 cm LAV(MOD-bp): 41.2 ml LVAd ap4: 26.0 cm2 LAV(MOD-bp) Indexed: 22.6 ml/m2 LVLd ap4: 7.5 cm LAV(MOD-sp2): 37.1 ml EDV(MOD-sp4): 76.3 ml LAV(MOD-sp4): 39.4 ml EDV(sp4-el): 76.2 ml LVAs ap4: 15.8 cm2 LVLs ap4: 6.4 cm ESV(MOD-sp4): 34.0 ml ESV(sp4-el): 33.5 ml EF(MOD-sp4): 55.4 % EF(sp4-el): 56.1 % LVAd ap2: 30.6 cm2 SV(MOD-sp4): 42.3 ml SV(MOD-sp2): 59.3 ml LVLd ap2: 8.1 cm EDV(MOD-sp2): 97.0 ml EDV(sp2-el): 98.4 ml LVAs ap2: 17.2 cm2 LVLs ap2: 6.9 cm ESV(MOD-sp2): 37.7 ml ESV(sp2-el): 36.6 ml EF(MOD-sp2): 61.1 % SV(sp4-el): 42.8 ml LA dimension(2D): 3.7 cm LA A4 area: 16.7 cm2 RA A4 area: 17.8 cm2 TAPSE: 2.2 cm Time Measurements MV dec time: 0.29 sec Doppler Measurements & Calculations MV E max luis: 67.1 cm/sec Lat Peak E' Luis: 6.9 cm/sec Med Peak E' Luis: 9.2 cm/sec MV A max luis: 77.4 cm/sec E/E' lat: 9.8 E/E' med: 7.3 MV E/A: 0.87 Ao V2 max: 138.4 cm/sec LV V1 max: 106.9 cm/sec MV dec slope: 231.4 cm/sec2 Ao max P.7 mmHg LV V1 max P.6 mmHg Ao V2 mean: 97.8 cm/sec LV V1 mean P.6 mmHg Ao mean P.2 mmHg LV V1 mean: 78.2 cm/sec Ao V2 VTI: 30.1 cm LV V1 VTI: 23.2 cm AV (velocity ratio): 0.77 DANIEL(I,D): 2.4 cm2 DANIEL(V,D): 2.4 cm2 SV(LVOT): 73.4 ml PA V2 max: 89.0 cm/sec TR max luis: 253.0 cm/sec PA max PG (full): 0.99 mmHg TR max P.6 mmHg ECHO/Echo Complete W/ Contrast Interpretation Summary Mild concentric left ventricular hypertrophy. The left ventricular ejection fraction is 55 %. Mild tricuspid valve insufficiency. Right ventricular systolic pressure estimated to be 40 mmHg. The study was technically difficult. Ordering Physician: Stevan Alexander Performed By: Carolyn Etienne RDCS
[2023-11-26 08:47] LABS: Absolute Neutrophil Count 8.2 X10^3/uL (2.0-7.7); Basophil# 0.05 X10^3/uL; Basophil% 0.5 % (0-1); Eosinophil# 0.29 X10^3/uL; Eosinophils% 2.6 % (0-5); Hemoglobin 10.1 g/dL (12.0-15.0); Lymphocyte % 16.2 % (19-41); Mean Corp Hgb Conc 32.6 g/dL (32-36); Mean Corpuscular Hgb 29.6 pg (27.0-32.0); Mean Corpuscular Volume 90.9 fL (81-99); Mean Platelet Vol. 10.7 fl (6.2-12.0); Monocyte# 0.72 X10^3/uL; Monocyte% 6.5 % (0-10); NRBC Flagged by Analyzer 0 % (0-5); Neutrophil # 8.21 X10^3/uL (2.7-7.7); Neutrophil % 73.9 % (47-70); Platelet Count 241 K/mm3 (150-450); RBC Distribution Width CV 13.2 % (11.6-14.6); RBC Distribution Width SD 43.8 fl (35.1-43.9); Red Blood Count 3.41 M/mm3 (4.2-5.4); White Blood Count 11.1 K/mm3 (4.4-11.0)
[2023-11-26] MEDS: Carvedilol 3.125 MG TABLET PO (08:51)
[2023-11-26] MEDS: Multivitamins,Therapeutic Tablet 1 TABLET PO (08:52)
[2023-11-26] MEDS: Lisinopril 20 MG Tablet PO ×2 (08:52→22:11)
[2023-11-26] MEDS: Pantoprazole Sodium 40 MG Tablet PO (08:52)
[2023-11-26] MEDS: Heparin Injection (Vial) 5,000 UNIT/ML VIAL 5000 UNIT SC ×2 (08:52→22:10)
[2023-11-26] MEDS: Insulin Glargine-YFGN 100 UNIT/ML Pen 10 UNIT SC ×2 (08:56→17:53)
[2023-11-26] MEDS: Potassium Chloride Oral Tablet 20 MEQ 40 MEQ PO (08:56)
[2023-11-26] MEDS: Furosemide 100 MG/10 ML Vial 60 MG IV (08:56)
[2023-11-26 09:00] LABS: Anion Gap 4 (5-15); BUN 15 mg/dL (7-18); BUN/Creat Ratio 13.8 RATIO (10-20); Calcium,Total 9.1 mg/dL (8.5-10.1); Chloride 103 mmol/L (98-107); Creatinine, Serum 1.09 mg/dL (0.55-1.02); EST Glomerular Filtration Rate 51 mL/min (>60); Est Glom Filt Rate - Afr Amer 61 mL/min (>60); Estimated Creatinine Clearance 35.42 ml/min; Glucose 171 mg/dL (74-106); Magnesium 2.3 mg/dL (1.6-2.6); Potassium 3.6 mmol/L (3.5-5.1); Sodium Level 139 mmol/L (136-145)
[2023-11-26] MEDS: Nystatin Ointment 1 APPLIC TOPICAL (09:03)
--- NOTE | 2023-11-26 09:38 | RAD_ITS ---
HISTORY: CHF. TECHNIQUE: XR Chest 1 View. COMPARISON: Prior day. FINDINGS: LINES/TUBES: None. CARDIOMEDIASTINAL BORDERS: Stable. LUNGS: Mild bibasilar atelectasis or pulmonary vascular congestion. PLEURA: No pleural effusion or pneumothorax. RAD/Chest 1 View (Portable) IMPRESSION: No significant interval change. Electronically Signed: Althea Pascal MD at 11:54 EST ,
[2023-11-26 11:31] LABS: Bedside Glucose 175 mg/dL (74-106)
[2023-11-26] MEDS: Senna/Docusate Sodium 1 Tablet 2 TABLET PO (14:19)
[2023-11-26 16:36] LABS: Bedside Glucose 203 mg/dL (74-106)
[2023-11-26] MEDS: Potassium Chloride Oral Tablet 20 MEQ PO (17:53)
[2023-11-26 21:26] LABS: Bedside Glucose 152 mg/dL (74-106)
[2023-11-26] MEDS: Atorvastatin Calcium 20 MG Tablet PO (22:11)
[2023-11-27] VITALS (15 sets, daily range): BP systolic 96–143; BP diastolic 44–60; PULSE 63–71; RESP 16–20; TEMP 36.8–37.4; O2SAT 87–98; BMI 36.9
[2023-11-27] MEDS: HYDROmorphone 1 MG/ML Syringe IV (04:39)
[2023-11-27] MEDS: Insulin Lispro 100 UNIT/ML INSULN.PEN SC ×4 (06:27→22:09)
[2023-11-27] MEDS: hydrALAZINE 25 MG Tablet PO ×3 (06:29→22:08)
[2023-11-27] MEDS: Albuterol 2.5 MG/3 ML VIAL.NEB. INHALATION ×3 (06:53→19:43)
[2023-11-27] MEDS: Budesonide Respules 0.5 MG/2 ML AMPUL.NEB. INHALATION ×2 (06:53→19:43)
[2023-11-27 07:10] LABS: Bedside Glucose 199 mg/dL (74-106)
--- NOTE | 2023-11-27 07:25 | PCM.PN.HOSP ---
Reason for Visit Reason for Visit: Diagnoses Other fracture of upper and lower end of left fibula, initial encounter for closed fracture (11/25/23) Displaced bimalleolar fracture of left lower leg, initial encounter for closed fracture (11/25/23) Displaced pilon fracture of left tibia, initial encounter for closed fracture (11/25/23) Subjective Subjective Patient seen breathing improved. Chest x-ray the day prior demonstrated vascular congestion. 2D echo demonstrated mild concentric left ventricular hypertrophy with EF of 55% and RVSP of 40 mmHg. Patient seen in consultation by Dr. Toledo, ecommended nonoperative treatment for her fractures Objective Data Objective Data Vital Signs: Vital Signs Temp Pulse Resp BP Pulse Ox O2 Del Method O2 Flow Rate 98.4 F 71 18 107/60 94 Nasal Cannula 2 11/27/23 01:05 11/27/23 06:53 11/27/23 06:53 11/27/23 06:29 11/27/23 06:53 11/27/23 06:53 11/27/23 03:00 Oxygen Flow Rate (L/min) 2 Oxygen Delivery Method Nasal Cannula Weight: 85.4 kg Body Mass Index (BMI) 36.9 Intake & Output: Intake and Output for Last 24 Hours 11/25/23 11/26/23 11/27/23 23:59 23:59 23:59 Intake Total 1300 / 1300 200 / 200 Output Total 350 / 500 750 / 750 400 / 400 Balance -350 / -350 550 / 550 -200 / -200 Lab / Micro Data 11/27/23 06:17 11/27/23 06:27 Labs: Laboratory Results - last 24 hr 11/26/23 08:01: WBC 11.1 H, RBC 3.41 L, Hgb 10.1 L, Hct 31.0 L, MCV 90.9, MCH 29.6, MCHC 32.6, RDW Std Deviation 43.8, RDW Coeff of Yasir 13.2, Plt Count 241, MPV 10.7, Immature Gran % (Auto) 0.300, Neut % (Auto) 73.9 H, Lymph % (Auto) 16.2 L, Garrard % (Auto) 6.5, Eos % (Auto) 2.6, Baso % (Auto) 0.5, Absolute Neuts (auto) 8.2 H, Absolute Lymphs (auto) 1.80, Nucleated RBC % 0, Sodium 139, Potassium 3.6, Chloride 103, Carbon Dioxide 32.0, Anion Gap 4 L, BUN 15, Creatinine 1.09 H, Estim Creat Clear Calc 35.42, Est GFR (MDRD) Af Amer 61, Est GFR (MDRD) Non-Af 51 L, BUN/Creatinine Ratio 13.8, Glucose 171 H, Calcium 9.1, Magnesium 2.3 11/26/23 11:11: POC Glucose 175 H 11/26/23 16:17: POC Glucose 203 H 11/26/23 21:08: POC Glucose 152 H 11/27/23 06:23: POC Glucose 199 H Radiography Diagnostic Testing: Radiology Impression Echocardiogram 11/26/23 08:27 Interpretation Summary Mild concentric left ventricular hypertrophy. The left ventricular ejection fraction is 55 %. Mild tricuspid valve insufficiency. Right ventricular systolic pressure estimated to be 40 mmHg. The study was technically difficult. Ordering Physician: Stevan Alexander Performed By: Carolyn Etienne [facility] Chest X-Ray 11/26/23 09:38 IMPRESSION: No significant interval change. Electronically Signed: Althea Pascal MD at 11:54 EST , Rhythm Strip Rhythm Strip: Sinus Rhythm Rate: 75 Ectopy: PVC(s) Physical Exam Narrative GENERAL: cooperative HEENT: Atraumatic; normocephalic EYES; Anicteric, Normal Conjunctiva NECK; supple, normal thyroid, RESPIRATORY: Diminished to auscultation with bilateral crackles CARDIOVASCULAR: Regular S1 S2, GI: soft, normoactive bowel sounds, : No Renal angle tenderness; EXTREMITIES: edema, no clubbing, MUSCULOSKELETAL: Left lower extremity immobilized from the knee to the ankle NEURO: Awake; no lateralizing signs. SKIN: No Rash PSYCH; Flat affect Assessment & Plan Assessment/Plan (1) Bimalleolar fracture of left ankle: QUALIFIERS: Encounter type: initial encounter Fracture type: closed Qualified Code(s): S82.842A - Displaced bimalleolar fracture of left lower leg, initial encounter for closed fracture (2) Fracture of left tibial plafond with involvement of fibula: QUALIFIERS: Encounter type: initial encounter Fracture type: closed Qualified Code(s): S82.872A - Displaced pilon fracture of left tibia, initial encounter for closed fracture; S82.832A - Other fracture of upper and lower end of left fibula, initial encounter for closed fracture PLAN: Plan Patient is an 88-year-old lady admitted following a fall 1. Fall with left knee and ankle fracture ? Imaging studies demonstrated fracture of the lateral aspect of the lateral tibial plateau. Nondisplaced fracture of the proximal fibular metadiaphysis. Large joint effusion. Suspected fracture of the medial malleolus of the distal tibia. Oblique fracture of the distal fibula. Plantar and posterior calcaneal spurs. Soft tissue swelling around the ankle. Patient underwent immobilization in the ED orthopedic surgeon on-call Dr. Toledo was notified prior to patient being admitted to regular nursing floor 11/26/2023; patient pain relatively well-controlled awaiting Ortho consult ? 11/27/2023; patient was seen by Dr. Toledo recommended nonsurgical treatment. 2. GERD ? On PPI 3. Dyslipidemia -Patient is on statin therapy, continued at home dose 4. Diabetes mellitus type II -patient's oral hypoglycemics held. Placed on long acting insulin, Accu-Cheks a.c. and at bedtime and covered with sliding scale insulin 5. Acute on chronic chronic congestive heart failure ? Suspected heart failure with preserved ejection fraction; Patient is on furosemide did continue ? 11/26/2023 patient appears to be in acute congestive heart failure, IV Lasix given. Ordered chest x-ray and a 2D echo ? 11/27/2022;Mild concentric left ventricular hypertrophy. The left ventricular ejection fraction is 55 %. Mild tricuspid valve insufficiency. Right ventricular systolic pressure estimated to be 40 mmHg. 6. Mild intermittent asthma ? Patient is on bronchodilator treatment at home did continue 7. Class II obesity with BMI 37 ? Complicating care, weight loss advised 8. Hypertension - Blood pressure controlled, home medications continued with dose adjustment as needed 9. Hypokalemia ? Corrected per protocol ? 11/26/2023; potassium 3.2 additional replacement given 10. Mild anemia ? Secondary to anemia of chronic disorder monitoring H&H with plans to transfuse if patient becomes symptomatic or hemoglobin falls below 7 11. DVT prophylaxis ? SC heparin Time spent in the patient's overall evaluation,decision-making process, review of diagnostic data, adjustment of management, discussion with other providers, nursing nursing and ancillary staff involved in patient's care documentation, 35 minutes Charges/Coding Visit Charges Inpatient E&M: 59928 Subs Hosp L2
[2023-11-27 07:33] LABS: Absolute Lymphocyte Count 1.94 X10^3/uL (0.83-4.51); Absolute Neutrophil Count 8.4 X10^3/uL (2.0-7.7); Basophil# 0.04 X10^3/uL; Basophil% 0.3 % (0-1); Eosinophil# 0.38 X10^3/uL; Eosinophils% 3.3 % (0-5); Hematocrit 31.1 % (37-47); Lymphocyte # 1.94 X10^3/ul (0.83-4.51); Lymphocyte % 16.8 % (19-41); Mean Corp Hgb Conc 32.2 g/dL (32-36); Mean Corpuscular Hgb 28.9 pg (27.0-32.0); Mean Corpuscular Volume 89.9 fL (81-99); Mean Platelet Vol. 10.9 fl (6.2-12.0); Monocyte# 0.71 X10^3/uL; Monocyte% 6.1 % (0-10); NRBC Flagged by Analyzer 0 % (0-5); Neutrophil # 8.44 X10^3/uL (2.7-7.7); Neutrophil % 73.1 % (47-70); Platelet Count 270 K/mm3 (150-450); RBC Distribution Width CV 13.2 % (11.6-14.6); RBC Distribution Width SD 43.7 fl (35.1-43.9); Red Blood Count 3.46 M/mm3 (4.2-5.4); White Blood Count 11.6 K/mm3 (4.4-11.0)
[2023-11-27] MEDS: Furosemide 40 MG Tablet PO (07:51)
[2023-11-27] MEDS: Pantoprazole Sodium 40 MG Tablet PO (07:51)
[2023-11-27] MEDS: Multivitamins,Therapeutic Tablet 1 TABLET PO (07:51)
[2023-11-27] MEDS: Nystatin Ointment 1 APPLIC TOPICAL (07:51)
[2023-11-27] MEDS: Heparin Injection (Vial) 5,000 UNIT/ML VIAL 5000 UNIT SC ×2 (07:51→22:09)
[2023-11-27] MEDS: Insulin Glargine-YFGN 100 UNIT/ML Pen 10 UNIT SC ×2 (07:52→17:24)
[2023-11-27] MEDS: Potassium Chloride Oral Tablet 20 MEQ PO ×2 (07:54→17:23)
[2023-11-27 08:09] LABS: Anion Gap 6 (5-15); BUN 26 mg/dL (7-18); BUN/Creat Ratio 24.1 RATIO (10-20); Calcium,Total 8.7 mg/dL (8.5-10.1); Chloride 100 mmol/L (98-107); Creatinine, Serum 1.08 mg/dL (0.55-1.02); EST Glomerular Filtration Rate 51 mL/min (>60); Est Glom Filt Rate - Afr Amer 62 mL/min (>60); Estimated Creatinine Clearance 35.61 ml/min; Glucose 193 mg/dL (74-106); Sodium Level 138 mmol/L (136-145)
--- NOTE | 2023-11-27 09:52 | CON.PCM.OR_ITS ---
HPI Consult Data Date of Consult: 11/27/23 HPI Narrative HPI Narrative: JEANNETTE PATEL, is a 88 [address] [facility] ED after a fall at home. her states that she is essentially a non-ambulator who is primarily bedfast. They use a lift at home to transfer her. 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 At this time she reports left ankle and knee pain. [facility] Medical History (Updated 11/27/23 @ 10:[address] Delbert Toledo, ) Anxiety Asthma Chest pain CHF (congestive heart failure) COPD (chronic obstructive pulmonary disease) Coronary artery disease DVT (deep venous thrombosis) Former smoker HTN (hypertension) Osteoporosis Stroke/cerebrovascular accident Home Medications albuterol sulfate 90 mcg/actuation aerosol inhaler 2 puff inhalation Q6H PRN shortness of breath or wheezing 11/25/23 [History Last Taken Unknown] carvedilol 3.125 mg tablet 3.125 mg PO Q12H 11/25/23 [History Last Taken 11/24/23] enalapril maleate 20 mg tablet 20 mg PO Q12H 11/25/23 [History Last Taken 11/24/23] fluticasone 500 mcg-salmeterol 50 mcg/dose blistr powdr for inhalation 1 inh inhalation Q12H 11/25/23 [History Last Taken 11/24/23] furosemide 40 mg tablet 40 mg PO DAILY 11/25/23 [History Last Taken 11/24/23] glimepiride 1 mg tablet 1 mg PO DAILY 11/25/23 [History Last Taken 11/24/23] multivitamin (Daily Multi-Vitamin tablet) 1 tab PO DAILY 11/25/23 [History Last Taken 11/24/23] nystatin 100,000 unit/gram topical cream 1 applic topical DAILY 11/25/23 [History Last Taken Unknown] omeprazole 40 mg capsule,delayed release 40 mg PO DAILY 11/25/23 [History Last Taken 11/24/23] rosuvastatin 10 mg tablet 10 mg PO DAILY 11/25/23 [History Last Taken 11/24/23] Allergy/AdvReac Type Severity Reaction Status Date / Time acetaminophen [From Tylenol] Allergy Rash Verified 11/25/23 09:06 Penicillins Allergy Other Verified 11/25/23 09:06 Surgical History (Updated 11/25/23 @ 13:45 by Catalina Avila) History of appendectomy Social History Smoking Status: Former smoker ROS Musculoskeletal Musculoskeletal: Reports as per HPI Neurologic Neurologic: Reports as per HPI Vital Signs Vital Signs Vital Signs: 11/26/23 11:29 11/26/23 12:57 11/26/23 15:17 Temperature 98.2 F Temperature Source Oral Pulse Rate 58 L 56 L Pulse Strength Respiratory Rate 16 17 Respiratory Effort Normal Respiratory Depth Normal Respiratory Pattern Normal Normal Blood Pressure 106/49 L Blood Pressure Mean 68 Blood Pressure Source Monitor Blood Pressure Position Semi-Fowlers Blood Pressure Location Right Arm Pulse Ox 98 Oxygen Delivery Method Nasal Cannula Nasal Cannula Oxygen Flow Rate (L/min) 2 2 11/26/23 15:17 11/26/23 15:21 11/26/23 19:35 Temperature 98.5 F Temperature Source Oral Pulse Rate 62 63 Pulse Strength Respiratory Rate 16 16 Respiratory Effort Respiratory Depth Respiratory Pattern Normal Blood Pressure 106/52 L Blood Pressure Mean 70 Blood Pressure Source Monitor Blood Pressure Position Semi-Fowlers Blood Pressure Location Right Arm Pulse Ox 99 90 Oxygen Delivery Method Room Air Room Air Oxygen Flow Rate (L/min) 11/26/23 19:35 11/26/23 19:46 11/26/23 19:56 Temperature 99.2 F H Temperature Source Oral Pulse Rate 66 Pulse Strength Respiratory Rate 16 Respiratory Effort Normal Respiratory Depth Normal Respiratory Pattern Normal Blood Pressure 118/55 L Blood Pressure Mean 76 Blood Pressure Source Monitor Blood Pressure Position Semi-Fowlers Blood Pressure Location Right Arm Pulse Ox 97 99 Oxygen Delivery Method Nasal Cannula Room Air Nasal Cannula Oxygen Flow Rate (L/min) 1 1 11/26/23 22:10 11/26/23 22:00 11/27/23 01:00 Temperature 98.4 F Temperature Source Oral Pulse Rate 66 64 Pulse Strength Normal (2+) Respiratory Rate 16 Respiratory Effort Respiratory Depth Respiratory Pattern Blood Pressure 118/55 L 120/48 L Blood Pressure Mean 72 Blood Pressure Source Monitor Blood Pressure Position Semi-Fowlers Blood Pressure Location Right Arm Pulse Ox 87 Oxygen Delivery Method Room Air Oxygen Flow Rate (L/min) 11/27/23 01:05 11/27/23 03:00 11/27/23 06:29 Temperature 98.4 F Temperature Source Oral Pulse Rate 64 67 Pulse Strength Respiratory Rate 16 Respiratory Effort Normal Respiratory Depth Normal Respiratory Pattern Normal Blood Pressure 120/48 L 107/60 Blood Pressure Mean 72 Blood Pressure Source Monitor Blood Pressure Position Semi-Fowlers Blood Pressure Location Right Arm Pulse Ox 95 Oxygen Delivery Method Nasal Cannula Nasal Cannula Oxygen Flow Rate (L/min) 2 2 11/27/23 06:53 11/27/23 06:53 11/27/23 08:42 Temperature 99.4 F H Temperature Source Oral Pulse Rate 71 66 Pulse Strength Respiratory Rate 18 16 Respiratory Effort Respiratory Depth Respiratory Pattern Normal Blood Pressure 96/44 L Blood Pressure Mean 61 Blood Pressure Source Monitor Blood Pressure Position Semi-Fowlers Blood Pressure Location Left Arm Pulse Ox 94 95 Oxygen Delivery Method Nasal Cannula Nasal Cannula Oxygen Flow Rate (L/min) 2 11/27/23 08:42 11/27/23 08:42 Temperature Temperature Source Pulse Rate Pulse Strength Normal (2+) Respiratory Rate Respiratory Effort Normal Respiratory Depth Normal Respiratory Pattern Normal Blood Pressure Blood Pressure Mean Blood Pressure Source Blood Pressure Position Blood Pressure Location Pulse Ox Oxygen Delivery Method Nasal Cannula Oxygen Flow Rate (L/min) 2 Weight Weight: 188 lb 4.396 oz Body Mass Index (BMI) 36.9 Physical Exam Eyes PERRL and EOMs intact bilaterally Lymph Lymphatic: no lymphadenopathy noted Resp normal respiratory effort Cardio regular rate Extremity Extremity Narrative: LLE splinted at knee and ankle secondary to fracture. She has moderate pain to palpation at the knee and ankle. ROM not tested due to splint and known fracture. Neuro CN's II-XII intact bilaterally Psych Mood & Affect: anxious Lab / Micro Data 11/27/23 06:17 11/27/23 06:27 Labs: Laboratory Results - last 24 hr 11/26/23 11:11: POC Glucose 175 H 11/26/23 16:17: POC Glucose 203 H 11/26/23 21:08: POC Glucose 152 H 11/27/23 06:17: WBC 11.6 H, RBC 3.46 L, Hgb 10.0 L, Hct 31.1 L, MCV 89.9, MCH 28.9, MCHC 32.2, RDW Std Deviation 43.7, RDW Coeff of Yasir 13.2, Plt Count 270, MPV 10.9, Immature Gran % (Auto) 0.400, Neut % (Auto) 73.1 H, Lymph % (Auto) 16.8 L, [place] % (Auto) 6.1, Eos % (Auto) 3.3, Baso % (Auto) 0.3, Absolute Neuts (auto) 8.4 H, Absolute Lymphs (auto) 1.94, Nucleated RBC % 0 11/27/23 06:23: POC Glucose 199 H 11/27/23 06:27: Sodium 138, Potassium 4.0, Chloride 100, Carbon Dioxide 32.0, Anion Gap 6, BUN 26 H, Creatinine 1.08 H, Estim Creat Clear Calc 35.61, Est GFR (MDRD) Af Amer 62, Est GFR (MDRD) Non-Af 51 L, BUN/Creatinine Ratio 24.1 H, Glucose 193 H, Calcium 8.7 Rhythm Strip Rhythm Strip: Sinus Rhythm Rate: 75 Ectopy: PVC(s) Imaging Radiology Impression Echocardiogram 11/26/23 08:27 Interpretation Summary Mild concentric left ventricular hypertrophy. The left ventricular ejection fraction is 55 %. Mild tricuspid valve insufficiency. Right ventricular systolic pressure estimated to be 40 mmHg. The study was technically difficult. Ordering Physician: Stevan Alexander Performed By: Carolyn Etienne, [facility] Chest X-Ray 11/26/23 09:38 IMPRESSION: No significant interval change. Electronically Signed: Althea Pascal MD at 11:54 EST , Assessment & Plan Assessment/Plan (1) Fracture of left tibial plafond with involvement of fibula: QUALIFIERS: Encounter type: initial encounter Fracture type: closed Qualified Code(s): S82.872A - Displaced pilon fracture of left tibia, initial encounter for closed fracture; S82.832A - Other fracture of upper and lower end of left fibula, initial encounter for closed fracture (2) Closed Maisonneuve fracture of left fibula: QUALIFIERS: Encounter type: initial encounter Fracture alignment: displaced Qualified Code(s): S82.862A - Displaced Maisonneuve's fracture of left leg, initial encounter for closed fracture (3) Bimalleolar fracture of left ankle: QUALIFIERS: Encounter type: initial encounter Fracture type: closed Qualified Code(s): S82.842A - Displaced bimalleolar fracture of left lower leg, initial encounter for closed fracture (4) Tibial plateau fracture, left: PLAN: Plan Given the minimal displacement of her fractures and other underlying medical conditions, I recommend non-operative treatment for these fractures. I recommend a PT consult for transfers with TTWB on the leftI recommend an OT consult for ADLs. Maintain current splint and DVT prophylaxis as ordered by the admitting physician. I recommend X-Rays of the left ankle and left knee on 12/12/2023 to assess position of the fractures.
[2023-11-27 11:34] LABS: Bedside Glucose 224 mg/dL (74-106)
[2023-11-27 17:06] LABS: Bedside Glucose 180 mg/dL (74-106)
[2023-11-27] MEDS: Carvedilol 3.125 MG TABLET PO (17:23)
[2023-11-27] MEDS: Atorvastatin Calcium 20 MG Tablet PO (22:09)
[2023-11-27] MEDS: Lisinopril 20 MG Tablet PO (22:10)
[2023-11-27] MEDS: 0.9% Saline Lock 10 ML Syringe IV (22:11)
[2023-11-27 23:01] LABS: Bedside Glucose 186 mg/dL (74-106)
[2023-11-28] VITALS (12 sets, daily range): BP systolic 95–122; BP diastolic 38–56; PULSE 58–70; RESP 14–20; TEMP 36.6–37.1; O2SAT 82–98; BMI 36.6
[2023-11-28] MEDS: oxyCODONE 5 MG Tablet 10 MG PO ×2 (01:39→19:50)
[2023-11-28] MEDS: Ibuprofen 600 MG Tablet PO ×2 (05:29→20:50)
[2023-11-28] MEDS: hydrALAZINE 25 MG Tablet PO (05:30)
[2023-11-28] MEDS: Insulin Lispro 100 UNIT/ML INSULN.PEN SC ×4 (06:04→20:55)
[2023-11-28] MEDS: 0.9% Saline Lock 10 ML Syringe IV (06:05)
[2023-11-28] MEDS: Budesonide Respules 0.5 MG/2 ML AMPUL.NEB. INHALATION ×2 (07:09→19:16)
[2023-11-28] MEDS: Albuterol 2.5 MG/3 ML VIAL.NEB. INHALATION ×2 (07:09→19:17)
[2023-11-28 07:13] LABS: Bedside Glucose 180 mg/dL (74-106)
[2023-11-28 07:45] LABS: Absolute Lymphocyte Count 1.77 X10^3/uL (0.83-4.51); Absolute Neutrophil Count 5.9 X10^3/uL (2.0-7.7); Basophil# 0.03 X10^3/uL; Basophil% 0.4 % (0-1); Eosinophil# 0.29 X10^3/uL; Eosinophils% 3.4 % (0-5); Hematocrit 31.2 % (37-47); Hemoglobin 9.8 g/dL (12.0-15.0); Lymphocyte # 1.77 X10^3/ul (0.83-4.51); Lymphocyte % 20.7 % (19-41); Mean Corp Hgb Conc 31.4 g/dL (32-36); Mean Corpuscular Hgb 28.1 pg (27.0-32.0); Mean Corpuscular Volume 89.4 fL (81-99); Mean Platelet Vol. 10.8 fl (6.2-12.0); Monocyte# 0.57 X10^3/uL; Monocyte% 6.7 % (0-10); NRBC Flagged by Analyzer 0 % (0-5); Neutrophil # 5.87 X10^3/uL (2.7-7.7); Neutrophil % 68.4 % (47-70); Platelet Count 258 K/mm3 (150-450); RBC Distribution Width SD 42.5 fl (35.1-43.9); Red Blood Count 3.49 M/mm3 (4.2-5.4); White Blood Count 8.6 K/mm3 (4.4-11.0)
[2023-11-28 08:35] LABS: Anion Gap 7 (5-15); BUN 26 mg/dL (7-18); BUN/Creat Ratio 23.6 RATIO (10-20); Calcium,Total 9.5 mg/dL (8.5-10.1); Chloride 99 mmol/L (98-107); EST Glomerular Filtration Rate 50 mL/min (>60); Est Glom Filt Rate - Afr Amer 60 mL/min (>60); Estimated Creatinine Clearance 34.78 ml/min; Glucose 176 mg/dL (74-106); Potassium 3.8 mmol/L (3.5-5.1); Sodium Level 138 mmol/L (136-145)
[2023-11-28] MEDS: Heparin Injection (Vial) 5,000 UNIT/ML VIAL 5000 UNIT SC ×2 (09:07→20:51)
[2023-11-28] MEDS: Nystatin Ointment 1 APPLIC TOPICAL (09:07)
[2023-11-28] MEDS: Multivitamins,Therapeutic Tablet 1 TABLET PO ×2 (09:11→09:30)
[2023-11-28] MEDS: Potassium Chloride Oral Tablet 20 MEQ PO ×2 (09:12→17:31)
[2023-11-28] MEDS: Insulin Glargine-YFGN 100 UNIT/ML Pen 10 UNIT SC ×2 (09:14→17:30)
[2023-11-28] MEDS: Pantoprazole Sodium 40 MG Tablet PO (09:14)
[2023-11-28] MEDS: Senna/Docusate Sodium 1 Tablet 2 TABLET PO (09:30)
[2023-11-28] MEDS: Carvedilol 3.125 MG TABLET PO ×2 (09:31→17:30)
[2023-11-28] MEDS: Furosemide 40 MG Tablet PO (09:33)
--- NOTE | 2023-11-28 11:42 | CASEMGMT ---
Social Work SW spoke w/pt's in the room as pt is sleeping. We spoke about d/c plan. agreeable for pt to go somewhere for rehab. He would like a referral sent to [facility]. SW did provide to a list via [facility] of penitentiary facilities in network w/insurance, pt's preferred geographic area, and complete w/quality and resource use data. SW explained we will send referral to [facility], but if they are not able to take pt may need more choices. states understanding. Frances, d/c land planner, will send referral. JUNI Obrien
--- NOTE | 2023-11-28 11:49 | CASEMGMT ---
Addendum entered by Frances Gómez 11/28/23 14:03: Referral declined by [facility] d/t no bed availability. SW updated. Frances Gómez, Discharge Planning Asst. Original Note: Discharge Planning Referral sent via [facility] to [facility]. Frances Gómez, Discharge Planning Asst.
[2023-11-28 12:45] LABS: Bedside Glucose 204 mg/dL (74-106)
--- NOTE | 2023-11-28 14:16 | PN.ORTHO_ITS ---
Subjective Subjective Patient lying in bed sleeping. Patient's at her bedside. Patient easy to awake. Patient has no complaints at this time. Patient has painful with any movement of her leg. Objective Data Objective Data Vital Signs: Vital Signs Temp Pulse Resp BP Pulse Ox O2 Del Method O2 Flow Rate 97.8 F 58 L 14 95/38 L 97 Nasal Cannula 2 11/28/23 08:57 11/28/23 08:57 11/28/23 08:57 11/28/23 08:57 11/28/23 08:57 11/28/23 08:57 11/28/23 13:00 FiO2 97 11/28/23 08:42 Oxygen Flow Rate (L/min) 2 Oxygen Delivery Method Nasal Cannula Weight: 84.6 kg Body Mass Index (BMI) 36.6 Intake & Output: Intake and Output for Last 24 Hours 11/26/23 11/27/23 11/28/23 23:59 23:59 23:59 Intake Total 1300 / 1300 1650 / 1650 120 / 120 Output Total 750 / 750 1800 / 1800 1250 / 1250 Balance 550 / 550 -150 / -150 -1130 / -1130 Lab / Micro Data 11/28/23 06:32 11/28/23 06:32 Labs: Laboratory Results - last 24 hr 11/27/23 15:34: POC Glucose 180 H 11/27/23 21:59: POC Glucose 186 H 11/28/23 06:02: POC Glucose 180 H 11/28/23 06:32: WBC 8.6, RBC 3.49 L, Hgb 9.8 L, Hct 31.2 L, MCV 89.4, MCH 28.1, MCHC 31.4 L, RDW Std Deviation 42.5, RDW Coeff of Yasir 13.0, Plt Count 258, MPV 10.8, Immature Gran % (Auto) 0.400, Neut % (Auto) 68.4, Lymph % (Auto) 20.7, [place] % (Auto) 6.7, Eos % (Auto) 3.4, Baso % (Auto) 0.4, Absolute Neuts (auto) 5.9, Absolute Lymphs (auto) 1.77, Nucleated RBC % 0, Sodium 138, Potassium 3.8, Chloride 99, Carbon Dioxide 32.0, Anion Gap 7, BUN 26 H, Creatinine 1.10 H, Estim Creat Clear Calc 34.78, Est GFR (MDRD) Af Amer 60, Est GFR (MDRD) Non-Af 50 L, BUN/Creatinine Ratio 23.6 H, Glucose 176 H, Calcium 9.5 11/28/23 12:21: POC Glucose 204 H Rhythm Strip Rhythm Strip: Sinus Rhythm Rate: 75 Ectopy: PVC(s) Physical Exam Narrative Patient sleeping in bed. Easy to awake. Patient complains of pain with any motion of the left leg. Patient is in a full leg posterior splint. Patient has good cap refill in toes. Const General Appearance: cooperative Eyes PERRL Resp normal respiratory effort Extremity normal capillary refill Assessment & Plan Assessment/Plan (1) Tibial plateau fracture, left: QUALIFIERS: Encounter type: subsequent encounter Fracture type: closed PLAN: 1. Continue all pain medications as prescribed. 2. Continue ice to left knee and ankle. 3. Patient splint will be changed into a knee immobilizer and pneumatic foam walking boot for the ankle. 4. Patient is otherwise orthopedically stable. (2) Fracture of left tibial plafond with involvement of fibula: QUALIFIERS: Encounter type: initial encounter Fracture type: closed Qualified Code(s): S82.872A - Displaced pilon fracture of left tibia, initial encounter for closed fracture; S82.832A - Other fracture of upper and lower end of left fibula, initial encounter for closed fracture (3) Closed Maisonneuve fracture of left fibula: QUALIFIERS: Encounter type: initial encounter Fracture alignment: displaced Qualified Code(s): S82.862A - Displaced Maisonneuve's fracture of left leg, initial encounter for closed fracture (4) Bimalleolar fracture of left ankle: QUALIFIERS: Encounter type: initial encounter Fracture type: kali sed Qualified Code(s): S82.842A - Displaced bimalleolar fracture of left lower leg, initial encounter for closed fracture
--- NOTE | 2023-11-28 15:01 | CHAPLAIN ---
Type of Pastoral Visit _x__ Initial Visit ___ Follow-up Visit ___ On-call Visit ___ General Patient Visit ___ Spiritual Assessment ___ Family Conference ___ Bereavement ___ Rapid Response ___ Code Blue ___ Other (describe below) Pastoral Care Referral From ___ Patient _x__ Family ___ Nurse ___ Physician ___ Grails Web Application Developer ___ Banquet Manager ___ Other (describe below) Sacrament/Intervention _x__ Active listening ___ Anointing ___ Adventism ___ Bereavement ___ Communion ___ Angelita exploration ___ ___ Life review ___ Prayer ___ Reconciliation ___ Sacrament of Sick _x__ Supportive presence ___ Wedding ___ Other (describe below) Pastoral Comments patient appears to be sleeping and spouse is awake in the chair; offer of support to spouse and the patient awakens; spouse does most of the talking and pt goes in and out of sleep during the visit; spouse is concerned for pt's care 'after her stroke two years ago' and not much improvement; pt admits to pain in her areas of injury; spouse wants support for pt's meal times and the decision about where to go next; pt gets support from her Mosque community; time given to listen and offer respectful care;
--- NOTE | 2023-11-28 15:23 | CASEMGMT ---
Discharge Planning VM left for patients to request additional snf preference. Awaiting response. Frances Gómez, Discharge Planning Asst.
[2023-11-28 17:17] LABS: Bedside Glucose 199 mg/dL (74-106)
--- NOTE | 2023-11-28 18:03 | PCM.PN.HOSP ---
Reason for Visit Reason for Visit: Diagnoses Displaced bicondylar fracture of left tibia, initial encounter for closed fracture (11/25/23) Other fracture of upper and lower end of left fibula, initial encounter for closed fracture (11/25/23) Displaced bimalleolar fracture of left lower leg, initial encounter for closed fracture (11/25/23) Displaced Maisonneuve's fracture of left leg, initial encounter for closed fracture (11/25/23) Displaced pilon fracture of left tibia, initial encounter for closed fracture (11/25/23) Subjective Subjective Patient was seen and examined today, she does not complain of any left leg pain at rest today. We are currently awaiting for insurance approval for for the patient to go to an extended care facility for short-term rehab services. Objective Data Objective Data Vital Signs: Vital Signs Temp Pulse Resp BP Pulse Ox O2 Del Method O2 Flow Rate 98.1 F 61 20 H 115/53 L 98 Nasal Cannula 2 11/28/23 15:11 11/28/23 15:11 11/28/23 15:11 11/28/23 15:11 11/28/23 15:11 11/28/23 15:11 11/28/23 15:11 FiO2 2 11/28/23 15:04 Oxygen Flow Rate (L/min) 2 Oxygen Delivery Method Nasal Cannula Weight: 84.6 kg Body Mass Index (BMI) 36.6 Intake & Output: Intake and Output for Last 24 Hours 11/26/23 11/27/23 11/28/23 23:59 23:59 23:59 Intake Total 1300 / 1300 1650 / 1650 120 / 120 Output Total 750 / 750 1800 / 1800 1250 / 1250 Balance 550 / 550 -150 / -150 -1130 / -1130 Lab / Micro Data 11/28/23 06:32 11/28/23 06:32 Labs: Laboratory Results - last 24 hr 11/27/23 21:59: POC Glucose 186 H 11/28/23 06:02: POC Glucose 180 H 11/28/23 06:32: WBC 8.6, RBC 3.49 L, Hgb 9.8 L, Hct 31.2 L, MCV 89.4, MCH 28.1, MCHC 31.4 L, RDW Std Deviation 42.5, RDW Coeff of Yasir 13.0, Plt Count 258, MPV 10.8, Immature Gran % (Auto) 0.400, Neut % (Auto) 68.4, Lymph % (Auto) 20.7, [place] % (Auto) 6.7, Eos % (Auto) 3.4, Baso % (Auto) 0.4, Absolute Neuts (auto) 5.9, Absolute Lymphs (auto) 1.77, Nucleated RBC % 0, Sodium 138, Potassium 3.8, Chloride 99, Carbon Dioxide 32.0, Anion Gap 7, BUN 26 H, Creatinine 1.10 H, Estim Creat Clear Calc 34.78, Est GFR (MDRD) Af Amer 60, Est GFR (MDRD) Non-Af 50 L, BUN/Creatinine Ratio 23.6 H, Glucose 176 H, Calcium 9.5 11/28/23 12:21: POC Glucose 204 H 11/28/23 16:59: POC Glucose 199 H Rhythm Strip Rhythm Strip: Sinus Rhythm Rate: 75 Ectopy: PVC(s) Physical Exam Const alert, oriented x3, no apparent distress and average body habitus General Appearance: cooperative, well kempt and well developed Orientation / Consciousness: awake, oriented to person, oriented to place and oriented to time HEENT normocephalic, head/scalp atraumatic and moist oral mucous membranes Eyes PERRL, EOMs intact bilaterally and conjunctivae normal Neck supple, no JVD, thyroid normal and no carotid bruits General: trachea midline Resp normal respiratory effort, no retractions, no use of accessory muscles and clear to auscultation bilaterally Auscultation: Negative for rales, rhonchi or wheezes Cardio regular rate, regular rhythm, S1 normal heart sound, S2 normal heart sound, no murmurs, no rub and no gallops GI normal to inspection, nondistended, normoactive bowel sounds, soft to palpation, non-tender and non-distended Extremity no clubbing, cyanosis or edema Skin no rashes or lesions noted General Skin Exam: no breakdown Neuro oriented x3, CN's II-XII intact bilaterally, no focal motor deficits and no sensory deficits noted Sensorium / Orientation: awake and alert Speech: speech normal Psych affect normal Assessment & Plan Assessment/Plan (1) Tibial plateau fracture, left: QUALIFIERS: Encounter type: subsequent encounter Fracture type: closed PLAN: Plan 1. Left tibial plateau fracture-this is nondisplaced and no surgery is planned for this fracture. Patient will need short-term placement in a penitentiary facility for short-term skilled services. #2 fracture of the medial malleolus of the left distal tibia, oblique fracture of the left distal fibula-continued immobility of the area, no surgery is planned for her ankle fracture #3 essential hypertension-patient will remain on current medication #4 type 2 diabetes-patient will remain on sliding scale insulin per fingerstick blood sugars #5 hyperlipidemia-patient is on Crestor Total clinical time spent by myself addressing the patient's medical issues, reviewing all of her data, and collaborating with patient's care team: 25 minutes Charges/Coding Visit Charges Inpatient E&M: 18446 Subs Hosp L1
[2023-11-28] MEDS: Atorvastatin Calcium 20 MG Tablet PO (20:51)
[2023-11-28 21:16] LABS: Bedside Glucose 259 mg/dL (74-106)
[2023-11-29] VITALS (11 sets, daily range): BP systolic 115–162; BP diastolic 48–71; PULSE 49–66; RESP 16–22; TEMP 35.9–37.1; O2SAT 98–100; BMI 37.9
[2023-11-29 01:34] LABS: Bedside Glucose 211 mg/dL (74-106)
[2023-11-29] MEDS: Insulin Lispro 100 UNIT/ML INSULN.PEN SC ×4 (06:54→20:17)
[2023-11-29] MEDS: Insulin Glargine-YFGN 100 UNIT/ML Pen 10 UNIT SC ×2 (06:55→16:40)
[2023-11-29] MEDS: Albuterol 2.5 MG/3 ML VIAL.NEB. INHALATION ×3 (07:02→19:25)
[2023-11-29] MEDS: Budesonide Respules 0.5 MG/2 ML AMPUL.NEB. INHALATION ×2 (07:06→19:25)
[2023-11-29 07:17] LABS: Bedside Glucose 171 mg/dL (74-106)
[2023-11-29] MEDS: 0.9% Saline Lock 10 ML Syringe IV ×4 (07:40→21:34)
[2023-11-29] MEDS: HYDROmorphone 1 MG/ML Syringe IV (07:40)
--- NOTE | 2023-11-29 07:48 | NURSING ---
PRN dilaudid given to pt before applying air cast to manage pain. Cast applied.
--- NOTE | 2023-11-29 07:53 | PN.ORTHO_ITS ---
Subjective Subjective Patient lying in bed sleeping. Patient easy to awake. Patient reports her pain has been well-managed. She does feel the splint has been very uncomfortable. Denies any calf pain. Denies chest pain, shortness of breath, or any other complaint. Objective Data Objective Data Vital Signs: Vital Signs Temp Pulse Resp BP Pulse Ox O2 Del Method O2 Flow Rate 96.7 F L 59 L 16 162/71 H 100 Nasal Cannula 2 11/29/23 07:35 11/29/23 07:35 11/29/23 07:35 11/29/23 07:35 11/29/23 07:35 11/29/23 07:35 11/29/23 07:35 FiO2 2 11/28/23 15:04 Oxygen Flow Rate (L/min) 2 Oxygen Delivery Method Nasal Cannula Weight: 87.7 kg Body Mass Index (BMI) 37.9 Intake & Output: Intake and Output for Last 24 Hours 11/27/23 11/28/23 11/29/23 23:59 23:59 23:59 Intake Total 1650 / 1650 920 / 920 Output Total 1800 / 1800 1750 / 1750 900 / 900 Balance -150 / -150 -830 / -830 -900 / -900 Lab / Micro Data 11/28/23 06:32 11/28/23 06:32 Labs: Laboratory Results - last 24 hr 11/28/23 06:32: Sodium 138, Potassium 3.8, Chloride 99, Carbon Dioxide 32.0, Anion Gap 7, BUN 26 H, Creatinine 1.10 H, Estim Creat Clear Calc 34.78, Est GFR (MDRD) Af Amer 60, Est GFR (MDRD) Non-Af 50 L, BUN/Creatinine Ratio 23.6 H, Glu cose 176 H, Calcium 9.5 11/28/23 12:21: POC Glucose 204 H 11/28/23 16:59: POC Glucose 199 H 11/28/23 20:55: POC Glucose 259 H 11/29/23 01:15: POC Glucose 211 H 11/29/23 06:53: POC Glucose 171 H Rhythm Strip Rhythm Strip: Sinus Rhythm Rate: 75 Ectopy: PVC(s) Physical Exam Narrative Patient lying in bed sleeping was easy to awake. Patient was alert. Pleasant. Patient's left leg was in a modified posterior splint and sugar-tong type splint placed by the emergency department. It was noted patient did have no padding on the splint material. There was no tissue breakdown appreciated when the splint was removed. Patient did have noted swelling with protrusion of tissue between the splints. Patient's knee was then approximate 10 degree flexion. Patient had no calf tenderness. Patient was exquisitely tender to palpation over the proximal fibula. Patient also had noted swelling and ecchymosis of the ankle with tenderness over the distal fibular region. Patient did have good posterior tibial pulse. Patient has good sensation to the plantar surface of her foot and was able to move her toes without pain. Patient was placed into a well-padded knee immobilizer with the knee in extension. Patient was also placed into a Aircast with a cotton sleeve placed prior to placement of the Aircast. Patient tolerated this very well. This provided excellent immobilization of the ankle. Patient's leg was elevated a blanket was placed under the distal calf ankle allowing the heel to be off the bed and the leg in extension. Patient states this made her knee feel much better. Post splinting neurovascular she was otherwise intact. Const alert and oriented x3 General Appearance: cooperative Eyes PERRL Resp normal respiratory effort Effort and Inspection: able to speak in complete sentences Extremity normal capillary refill Skin no rashes or lesions noted Neuro CN's II-XII intact bilaterally Psych mental status grossly normal and affect normal Assessment & Plan Assessment/Plan (1) Tibial plateau fracture, left: QUALIFIERS: Encounter type: subsequent encounter Fracture type: closed PLAN: 1. Continue all pain medications as prescribed 2. Continue anticoagulation for DVT prophylaxis as directed by medicine 3. Patient to remain nonweightbearing 4. Ice to knee and ankle 5. Patient is to wear the knee immobilizer Aircast at all times except for personal hygiene. 6. Patient is orthopedically stable 7. Patient to follow-up with Dr. Toledo in 2 weeks 8. Patient be discharged to ECF when cleared with medicine (2) Fracture of left tibial plafond with involvement of fibula: QUALIFIERS: Encounter type: initial encounter Fracture type: closed Qualified Code(s): S82.872A - Displaced pilon fracture of left tibia, initial encounter for closed fracture; S82.832A - Other fracture of upper and lower end of left fibula, initial encounter for closed fracture (3) Bimalleolar fracture of left ankle: QUALIFIERS: Encounter type: initial encounter Fracture type: closed Qualified Code(s): S82.842A - Displaced bimalleolar fracture of left lower leg, initial encounter for closed fracture
--- NOTE | 2023-11-29 09:02 | CASEMGMT ---
Addendum entered by Frances Gómez 11/29/23 10:56: Patient was accepted by [facility]. [facility] declined d/t no bed availability. updated and left for patients . Frances Gómez, Discharge Planning Asst. Original Note: Discharge Planning Referral sent via [facility] to [facility]. Frances Gómez, Discharge Planning Asst.
[2023-11-29] MEDS: Carvedilol 3.125 MG TABLET PO ×2 (09:51→16:51)
[2023-11-29] MEDS: Furosemide 40 MG Tablet PO (09:52)
[2023-11-29] MEDS: Potassium Chloride Oral Tablet 20 MEQ PO ×2 (09:52→16:39)
[2023-11-29] MEDS: Heparin Injection (Vial) 5,000 UNIT/ML VIAL 5000 UNIT SC ×2 (09:53→20:17)
[2023-11-29] MEDS: Nystatin Ointment 1 APPLIC TOPICAL (09:53)
[2023-11-29] MEDS: Pantoprazole Sodium 40 MG Tablet PO (09:54)
[2023-11-29] MEDS: Ondansetron 4 MG/2 ML Vial IV ×2 (10:08→13:00)
[2023-11-29] MEDS: Lactulose 20 GM/30 ML UDC 30 GM PO (11:20)
[2023-11-29] MEDS: Bisacodyl 5 MG Tablet 10 MG PO (11:21)
[2023-11-29 11:47] LABS: Bedside Glucose 197 mg/dL (74-106)
--- NOTE | 2023-11-29 12:21 | CASEMGMT ---
Social Work [facility] accepted pt, SW let and pt know, both agreeable. SW will let physician know. JUNI Obrien
--- NOTE | 2023-11-29 14:44 | PCM.TXEXTCAR ---
Diet Diet Order/Speech Therapy: 11/25/23 13:27 Diet: Consistent Carb - Calorie Controlled Food consistency:: Easy to Chew Liquid Consistency:: Regular/Thin Dietary Modifications:: Cardiac / Heart Healthy Diet Comments: distant supervision How many daily calories?: 1600 calorie Routine Orders/Code Status O2 Liters per Minute: 2 O2 Frequency: Continuous Keep PO Greater than or Equal to (%): 88 Routine Lab Work: - (Fingerstick blood sugars AC nightly, Humalog subcu per sliding scale: 200-250: 5 units, 251-300: 8 units, 301-350: 12 units) Code Status: Full Code Wound(s) Lt ankle fracture non-surgical: Wound Type: fracture non-surgical Therapies Weight Bearing: Non weight bearing (Left leg) Physical Therapy: Eval and Treat Occupational Therapy: Eval and Treat Problem/Diagnosis (1) Tibial plateau fracture, left: Status: Acute Code(s): S82.142A - Displaced bicondylar fracture of left tibia, initial encounter for closed fracture (2) Fracture of left tibial plafond with involvement of fibula: Status: Acute Code(s): S82.872A - Displaced pilon fracture of left tibia, initial encounter for closed fracture; S82.832A - Other fracture of upper and lower end of left fibula, initial encounter for closed fracture (3) Bimalleolar fracture of left ankle: Status: Acute Code(s): S82.842A - Displaced bimalleolar fracture of left lower leg, initial encounter for closed fracture Plan 1. Left tibial plateau fracture-this is nondisplaced and no surgery is planned for this fracture. Patient will need short-term placement in a [place] [facility] facility for short-term skilled services. #2 fracture of the medial malleolus of the left distal tibia, oblique fracture of the left distal fibula-continued immobility of the area, no surgery is planned for her ankle fracture #3 essential hypertension-patient will remain on current medication #4 type 2 diabetes-patient will remain on sliding scale insulin per fingerstick blood sugars #5 hyperlipidemia-patient is on Crestor Total clinical time spent by myself addressing the patient's medical issues, reviewing all of her data, and collaborating with patient's care team: 25 minutes Allergies/Procedures Done in Hospital Allergies acetaminophen [From Tylenol] Allergy (Verified 11/25/23 09:06) Rash Penicillins Allergy (Verified 11/25/23 09:06) Other puffs me up Procedures: None Type of Care/Length of Stay Estimated LOS: Convalescent Care Less Than 30 days Type of Care Needed: Skilled Rehab Potential: Good Prognosis: Good Additional Orders/Day of Discharge H&P will serve as current which was dated: 11/25/23 Day of Discharge: 11/29/23 Dietary and Speech Recommendations Dietitian Recommendations/Changes: Will adjust diet to 1600 calorie, consistent carbohydrate; cardiac/sodium-restricted with [id number] food/thin liquids and supervised meals. Fluid Restriction as needed per physician. ONS if PO declines below 50% meals. Discharge Plan Admission Admit Date/Time: 11/25/23 12:18 Primary Reason for Your Visit: Left tibial plateau fracture, fracture of the left ankle Attending Provider: Sami Carney Primary Care Provider: Kirby Dukes Consulting Providers: Delbert Toledo; Stevan Alexander Instructions Additional Instructions / Restrictions: Ice to knee and ankle as needed, patient to wear knee immobilizer Aircast at all times except for personal hygiene, patient is to remain nonweightbearing left leg Discharge Orders/Prescriptions Prescriptions: New heparin (porcine) 5,000 unit/mL Solution 5,000 unit subcut Q12 Qty: 1 0RF alum-mag hydroxide-simeth [Mag-Al Plus Extra Strength] 400-400-40 mg/5 mL Suspension 30 ml PO Q6H PRN PRN (Reason: Gastric Burning) Qty: 0 0RF oxycodone 5 mg Tablet 10 mg PO Q4H PRN PRN (Reason: Pain Score 4-10) 2 Days Qty: 10 0RF insulin glargine-yfgn 100 unit/mL (3 mL) Insulin Pen 10 unit subcut DINNER Qty: 0 0RF insulin glargine-yfgn 100 unit/mL (3 mL) Insulin Pen 10 unit subcut BREAKFAST Qty: 0 0RF sennosides-docusate sodium [Stool Softener-Stimulant Laxat] 8.6-50 mg Tablet 2 tab PO BID PRN PRN (Reason: Constipation) Qty: 0 0RF potassium chloride 20 mEq Tablet,Er Particles/Crystals 20 meq PO BIDCM Qty: 0 0RF ondansetron HCl 8 mg tablet 8 mg PO Q6H PRN PRN (Reason: nausea and vomiting) Qty: 1 0RF Continued carvedilol 3.125 mg tablet 3.125 mg PO Q12H enalapril maleate 20 mg tablet 20 mg PO Q12H fluticasone propion-salmeterol 500-50 mcg/dose blister with device 1 inh INHALATION Q12H furosemide 40 mg tablet 40 mg PO DAILY nystatin 100,000 unit/gram cream 1 applic TOPICAL DAILY omeprazole 40 mg capsule,delayed release(DR/EC) 40 mg PO DAILY rosuvastatin 10 mg tablet 10 mg PO DAILY multivitamin [Daily Multi-Vitamin] Tablet 1 tab PO DAILY albuterol sulfate 90 mcg/actuation HFA aerosol inhaler 2 puff INHALATION Q6H PRN (Reason: shortness of breath or wheezing) Patient Comments: inhale 2 puffs by mouth and INTO THE LUNGS every 6 hours if needed Discontinued glimepiride 1 mg tablet 1 mg PO DAILY Referrals / Follow Up: Kirby Dukes DO [Primary Care Provider] - Delbert Toledo DO [Med Staff - Active Staff] - See Referral Note (In 2 weeks) Disposition Disposition (needs filled in before D/C Order can be placed): Retirement Facility (1) Tibial plateau fracture, left Qualifiers: Encounter type: subsequent encounter Fracture type: closed (2) Fracture of left tibial plafond with involvement of fibula Qualifiers: Encounter type: initial encounter Fracture type: closed Qualified Code(s): S82.872A - Displaced pilon fracture of left tibia, initial encounter for closed fracture; S82.832A - Other fracture of upper and lower end of left fibula, initial encounter for closed fracture (3) Bimalleolar fracture of left ankle Qualifiers: Encounter type: initial encounter Fracture type: closed Qualified Code(s): S82.842A - Displaced bimalleolar fracture of left lower leg, initial encounter for closed fracture
[2023-11-29] MEDS: Ibuprofen 600 MG Tablet PO ×2 (14:59→21:33)
--- NOTE | 2023-11-29 15:03 | CASEMGMT ---
Social Work SW spoke w/physician, he is going to send pt to [facility] today. SW called pt's , message left to let him know that pt is going to go to [facility] today. SW will try again once transport is set up. JUNI Obrien
--- NOTE | 2023-11-29 15:16 | PCM.DC.SUM ---
Providers Date of Admission: 11/25/23 Date of Discharge: 11/29/23 Primary Care Physician: Dr. Kirby Dukes, Consultations 11/25/23 13:27 Consult: Orthopedics Routine Consulting Provider: Delbert Toledo Reason for Consult: Left tibial plateau fracture EMERGENT Consult: No MD Notified: Yes Date Notified: 11/25/23 Time Notified: 12:27 Method of Notification: ED Physician Initiated Reason For Visit: LEFT ANKLE FRACTURE Diagnosis Discharge Diagnosis (1) Tibial plateau fracture, left: Status: Acute Code(s): S82.142A - Displaced bicondylar fracture of left tibia, initial encounter for closed fracture Qualifiers: Encounter type: subsequent encounter Fracture type: closed (2) Fracture of left tibial plafond with involvement of fibula: Status: Acute Code(s): S82.872A - Displaced pilon fracture of left tibia, initial encounter for closed fracture; S82.832A - Other fracture of upper and lower end of left fibula, initial encounter for closed fracture Qualifiers: Encounter type: initial encounter Fracture type: closed Qualified Code(s): S82.872A - Displaced pilon fracture of left tibia, initial encounter for closed fracture; S82.832A - Other fracture of upper and lower end of left fibula, initial encounter for closed fracture (3) Bimalleolar fracture of left ankle: Status: Acute Code(s): S82.842A - Displaced bimalleolar fracture of left lower leg, initial encounter for closed fracture Qualifiers: Encounter type: initial encounter Fracture type: closed Qualified Code(s): S82.842A - Displaced bimalleolar fracture of left lower leg, initial encounter for closed fracture Plan 1. Left tibial plateau fracture-this is nondisplaced and no surgery is planned for this fracture. Patient will [facility] for [facility]-term skilled services. #2 fracture of the medial malleolus of the left distal tibia, oblique fracture of the left distal fibula-continued immobility of the area, no surgery is planned for her ankle fracture #3 essential hypertension-patient will remain on current medication #4 type 2 diabetes-patient will remain on sliding scale insulin per fingerstick blood sugars #5 hyperlipidemia-patient is on Crestor #6 achalasia #7 acute duodenitis #8 acute gastritis Total clinical time spent by myself addressing the patient's medical issues, reviewing all of her data, and collaborating with patient's care team: 25 minutes Medications at Discharge Home Medications albuterol sulfate 90 mcg/actuation aerosol inhaler 2 puff inhalation Q6H PRN shortness of breath or wheezing 11/25/23 carvedilol 3.125 mg tablet 3.125 mg PO Q12H 11/25/23 enalapril maleate 20 mg tablet 20 mg PO Q12H 11/25/23 fluticasone 500 mcg-salmeterol 50 mcg/dose blistr powdr for inhalation 1 inh inhalation Q12H 11/25/23 furosemide 40 mg tablet 40 mg PO DAILY 11/25/23 multivitamin (Daily Multi-Vitamin tablet) 1 tab PO DAILY 11/25/23 nystatin 100,000 unit/gram topical cream 1 applic topical DAILY 11/25/23 omeprazole 40 mg capsule,delayed release 40 mg PO DAILY 11/25/23 rosuvastatin 10 mg tablet 10 mg PO DAILY 11/25/23 aluminum-mag hydroxide-simethicone 400 mg-400 mg-40 mg/5 mL oral susp (Mag-Al Plus Extra Strength) 30 ml PO Q6H PRN PRN Gastric Burning #0 mL 11/29/23 heparin (porcine) 5,000 unit/mL injection solution 5,000 unit subcut Q12 #1 mL 11/29/23 insulin glargine-yfgn 100 unit/mL (3 mL) subcutaneous pen 10 unit (0.1 mL) subcut BREAKFAST #0 mL 11/29/23 insulin glargine-yfgn 100 unit/mL (3 mL) subcutaneous pen 10 unit (0.1 mL) subcut DINNER #0 mL 11/29/23 ondansetron HCl 8 mg tablet 8 mg PO Q6H PRN PRN nausea and vomiting #1 TAB 11/29/23 oxycodone 5 mg tablet 10 mg (2 x 5 mg) PO Q4H PRN PRN Pain Score 4-10 2 days #10 tabs 11/29/23 potassium chloride 20 mEq tablet,extended release(part/cryst) 20 meq PO BIDCM #0 tabs 11/29/23 sennosides 8.6 mg-docusate sodium 50 mg tablet (Stool Softener-Stimulant Laxative) 2 tab PO BID PRN PRN Constipation #0 tabs 02/13/24 Hospital Course Operations None Procedures 2-D Echocardiogram and EGD Summary of Care Provided Minutes Spent on Discharge: 33 Hospital Course: This 88-year-old white female was seen in the emergency room at [facility] after she sustained a fall injuring her left ankle and left knee, this happened while the patient was trying to transition to sit in a chair.. The fall had occurred the night before, patient does not normally ambulate however. Workup in the ER included x-rays which showed a bimalleolar fracture and a tibial plateau fracture on the left. Patient was not able to be discharged home and was admitted to [place] [address] and seen by PT and OT, she was also seen by orthopedic surgery who felt that she did not need surgical intervention due to the fact that she was nonambulatory at baseline. Arrangements were made for the patient to go to a skilled care facility. Patient underwent an EGD due to complaints of intermittent persistent vomiting, it showed acute gastritis and acute duodenitis, there is abnormal esophageal motility suspicious for achalasia and the patient's esophagus was dilated. On 11/29/2023, patient was seen and examined:alert and no apparent distress General Appearance: cooperative, well kempt and well developed Orientation / Consciousness: awake, oriented to person and oriented to place HEENT normocephalic, head/scalp atraumatic and moist oral mucous membranes Eyes PERRL, EOMs intact bilaterally and conjunctivae normal Neck supple, no JVD, thyroid normal and no carotid bruits General: trachea midline Resp normal respiratory effort, no retractions, no use of accessory muscles and clear to auscultation bilaterally Auscultation: Negative for rales, rhonchi or wheezes Cardio regular rate, regular rhythm, S1 normal heart sound, S2 normal heart sound, no murmurs, no rub and no gallops GI normal to inspection, nondistended, normoactive bowel sounds, soft to palpation, non-tender and non-distended Extremity no clubbing, cyanosis or edema Skin no rashes or lesions noted General Skin Exam: no breakdown Neuro CN's II-XII intact bilaterally, no focal motor deficits and no sensory deficits noted Sensorium / Orientation: awake and alert Speech: speech normal Psych affect normal Patient was discharged to skilled care facility on 12/01/2023 in stable condition Weight / BMI Weight Weight: 87.7 kg Body Mass Index (BMI) 37.9 ABG / Lab / Microbiology Data 11/28/23 06:32 11/28/23 06:32 Laboratory: Laboratory Results - last 24 hr 11/28/23 16:59: POC Glucose 199 H 11/28/23 20:55: POC Glucose 259 H 11/29/23 01:15: POC Glucose 211 H 11/29/23 06:53: POC Glucose 171 H 11/29/23 11:24: POC Glucose 197 H Meaningful Use Info Meaningful Use Diagnoses (Choose all that apply): None applicable Discharge Plan Admission Admit Date/Time: 11/25/23 12:18 Primary Reason for Your Visit: Left tibial plateau fracture, fracture of the left ankle Attending Provider: Sami Carney Primary Care Provider: Kirby Dukes Consulting Providers: Delbert Toledo; Stevan Alexander Instructions Additional Instructions / Restrictions: Ice to knee and ankle as needed, patient to wear knee immobilizer Aircast at all times except for personal hygiene, patient is to remain nonweightbearing left leg Discharge Orders/Prescriptions Prescriptions: New heparin (porcine) 5,000 unit/mL Solution 5,000 unit subcut Q12 Qty: 1 0RF alum-mag hydroxide-simeth [Mag-Al Plus Extra Strength] 400-400-40 mg/5 mL Suspension 30 ml PO Q6H PRN PRN (Reason: Gastric Burning) Qty: 0 0RF oxycodone 5 mg Tablet 10 mg PO Q4H PRN PRN (Reason: Pain Score 4-10) 2 Days Qty: 10 0RF insulin glargine-yfgn 100 unit/mL (3 mL) Insulin Pen 10 unit subcut DINNER Qty: 0 0RF insulin glargine-yfgn 100 unit/mL (3 mL) Insulin Pen 10 unit subcut BREAKFAST Qty: 0 0RF sennosides-docusate sodium [Stool Softener-Stimulant Laxat] 8.6-50 mg Tablet 2 tab PO BID PRN PRN (Reason: Constipation) Qty: 0 0RF potassium chloride 20 mEq Tablet,Er Particles/Crystals 20 meq PO BIDCM Qty: 0 0RF ondansetron HCl 8 mg tablet 8 mg PO Q6H PRN PRN (Reason: nausea and vomiting) Qty: 1 0RF Continued carvedilol 3.125 mg tablet 3.125 mg PO Q12H enalapril maleate 20 mg tablet 20 mg PO Q12H fluticasone propion-salmeterol 500-50 mcg/dose blister with device 1 inh INHALATION Q12H furosemide 40 mg tablet 40 mg PO DAILY nystatin 100,000 unit/gram cream 1 applic TOPICAL DAILY omeprazole 40 mg capsule,delayed release(DR/EC) 40 mg PO DAILY rosuvastatin 10 mg tablet 10 mg PO DAILY multivitamin [Daily Multi-Vitamin] Tablet 1 tab PO DAILY albuterol sulfate 90 mcg/actuation HFA aerosol inhaler 2 puff INHALATION Q6H PRN (Reason: shortness of breath or wheezing) Patient Comments: inhale 2 puffs by mouth and INTO THE LUNGS every 6 hours if needed Discontinued glimepiride 1 mg tablet 1 mg PO DAILY Referrals / Follow Up: Kirby Dukes DO [Primary Care Provider] - Delbert Toledo DO [Med Staff - Active Staff] - See Referral Note (In 2 weeks) Disposition Disposition (needs filled in before D/C Order can be placed): Senior Living Facility Charges/Coding Visit Charges Inpatient E&M: 53514 Disch Hosp >30min
--- NOTE | 2023-11-29 15:58 | PHA.DC.MR.R ---
Pharmacy [place] Med Reconciliation Pharmacy Service has performed discharge medication reconciliation for this patient. The patient's discharge medication list was reviewed for discrepancies and discrepancies were resolved. Medications at Discharge Home Medications albuterol sulfate 90 mcg/actuation aerosol inhaler 2 puff inhalation Q6H PRN shortness of breath or wheezing 11/25/23 carvedilol 3.125 mg tablet 3.125 mg PO Q12H 11/25/23 enalapril maleate 20 mg tablet 20 mg PO Q12H 11/25/23 fluticasone 500 mcg-salmeterol 50 mcg/dose blistr powdr for inhalation 1 inh inhalation Q12H 11/25/23 furosemide 40 mg tablet 40 mg PO DAILY 11/25/23 multivitamin (Daily Multi-Vitamin tablet) 1 tab PO DAILY 11/25/23 nystatin 100,000 unit/gram topical cream 1 applic topical DAILY 11/25/23 omeprazole 40 mg capsule,delayed release 40 mg PO DAILY 11/25/23 rosuvastatin 10 mg tablet 10 mg PO DAILY 11/25/23 aluminum-mag hydroxide-simethicone 400 mg-400 mg-40 mg/5 mL oral susp (Mag-Al Plus Extra Strength) 30 ml PO Q6H PRN PRN Gastric Burning #0 mL 11/29/23 heparin (porcine) 5,000 unit/mL injection solution 5,000 unit subcut Q12 #1 mL 11/29/23 insulin glargine-yfgn 100 unit/mL (3 mL) subcutaneous pen 10 unit (0.1 mL) subcut BREAKFAST #0 mL 11/29/23 insulin glargine-yfgn 100 unit/mL (3 mL) subcutaneous pen 10 unit (0.1 mL) subcut DINNER #0 mL 11/29/23 ondansetron HCl 8 mg tablet 8 mg PO Q6H PRN PRN nausea and vomiting #1 TAB 11/29/23 oxycodone 5 mg tablet 10 mg (2 x 5 mg) PO Q4H PRN PRN Pain Score 4-10 2 days #10 tabs 11/29/23 potassium chloride 20 mEq tablet,extended release(part/cryst) 20 meq PO BIDCM #0 tabs 11/29/23 sennosides 8.6 mg-docusate sodium 50 mg tablet (Stool Softener-Stimulant Laxative) 2 tab PO BID PRN PRN Constipation #0 tabs 11/29/23
--- NOTE | 2023-11-29 16:04 | CASEMGMT ---
Addendum entered by Dori Darling 11/29/23 16:19: Social Work SW did get a hold of daughter and let her know pt is not being discharged today. JUNI Obrien Original Note: Social Work SW completed the hospital exemption in [facility], set up 5pm ambulance. SW let pt know time of transport. SW called to let him know pt will be discharged today. not in agreement w/discharge. SW asked physician to call , he did, discharge delayed at this time and pt to have an EGD tomorrow. SW called pt's daughter earlier to let her know pt would be discharged, SW called her back to let her know she is not getting discharged today, got her voicemail that was not set up. SW cancelled transport, let pt know that she is not going today. MARGO also sent a message to [facility] in [facility] stating pt is not going today. JUNI Obrien
--- NOTE | 2023-11-29 16:09 | PCM.PN.HOSP ---
Reason for Visit Reason for Visit: Diagnoses Displaced bicondylar fracture of left tibia, initial encounter for closed fracture (11/25/23) Other fracture of upper and lower end of left fibula, initial encounter for closed fracture (11/25/23) Displaced bimalleolar fracture of left lower leg, initial encounter for closed fracture (11/25/23) Displaced Maisonneuve's fracture of left leg, initial encounter for closed fracture (11/25/23) Displaced pilon fracture of left tibia, initial encounter for closed fracture (11/25/23) Subjective Subjective Patient was seen and examined today, I talked to her by phone today, her is concerned because she has had episodic vomiting over the last 3 to 4 weeks, he states he was not able to bring her into her doctor's office because of transportation issues, he did not tell me why he did not take her to the emergency room for evaluation however. After discussion with him, I elected to keep her in the hospital and have gastroenterology see her for possible EGD in case she has esophageal stenosis or neoplasm in the esophagus. Objective Data Objective Data Vital Signs: Vital Signs Temp Pulse Resp BP Pulse Ox O2 Del Method O2 Flow Rate 97.7 F L 55 L 16 115/48 L 98 Nasal Cannula 2 11/29/23 14:58 11/29/23 14:58 11/29/23 14:58 11/29/23 14:58 11/29/23 15:39 11/29/23 14:59 11/29/23 15:39 FiO2 2 11/28/23 15:04 Oxygen Flow Rate (L/min) 2 Oxygen Delivery Method Nasal Cannula Weight: 87.7 kg Body Mass Index (BMI) 37.9 Intake & Output: Intake and Output for Last 24 Hours 11/27/23 11/28/23 11/29/23 23:59 23:59 23:59 Intake Total 1650 / 1650 920 / 920 Output Total 1800 / 1800 1750 / 1750 1200 / 1200 Balance -150 / -150 -830 / -830 -1200 / -1200 Lab / Micro Data 11/28/23 06:32 11/28/23 06:32 Labs: Laboratory Results - last 24 hr 11/28/23 16:59: POC Glucose 199 H 11/28/23 20:55: POC Glucose 259 H 11/29/23 01:15: POC Glucose 211 H 11/29/23 06:53: POC Glucose 171 H 11/29/23 11:24: POC Glucose 197 H Rhythm Strip Rhythm Strip: Sinus Rhythm Rate: 75 Ectopy: PVC(s) Physical Exam Const alert and no apparent distress General Appearance: cooperative, well kempt and well developed Orientation / Consciousness: awake, oriented to person and oriented to place HEENT normocephalic, head/scalp atraumatic and moist oral mucous membranes Eyes PERRL, EOMs intact bilaterally and conjunctivae normal Neck supple, no JVD, thyroid normal and no carotid bruits General: trachea midline Resp normal respiratory effort, no retractions, no use of accessory muscles and clear to auscultation bilaterally Auscultation: Negative for rales, rhonchi or wheezes Cardio regular rate, regular rhythm, S1 normal heart sound, S2 normal heart sound, no murmurs, no rub and no gallops GI normal to inspection, nondistended, normoactive bowel sounds, soft to palpation, non-tender and non-distended Extremity no clubbing, cyanosis or edema Skin no rashes or lesions noted General Skin Exam: no breakdown Neuro CN's II-XII intact bilaterally, no focal motor deficits and no sensory deficits noted Sensorium / Orientation: awake and alert Speech: speech normal Psych affect normal Assessment & Plan Assessment/Plan (1) Tibial plateau fracture, left: QUALIFIERS: Encounter type: subsequent encounter Fracture type: closed (2) Fracture of left tibial plafond with involvement of fibula: QUALIFIERS: Encounter type: initial encounter Fracture type: closed Qualified Code(s): S82.872A - Displaced pilon fracture of left tibia, initial encounter for closed fracture; S82.832A - Other fracture of upper and lower end of left fibula, initial encounter for closed fracture (3) Bimalleolar fracture of left ankle: QUALIFIERS: Encounter type: initial encounter Fracture type: closed Qualified Code(s): S82.842A - Displaced bimalleolar fracture of left lower leg, initial encounter for closed fracture PLAN: Plan 1. Left tibial plateau fracture-this is nondisplaced and no surgery is planned for this fracture. Patient will need short-term placement in a group home facility for short-term skilled services. #2 fracture of the medial malleolus of the left distal tibia, oblique fracture of the left distal fibula-continued immobility of the area, no surgery is planned for her ankle fracture #3 essential hypertension-patient will remain on current medication #4 type 2 diabetes-patient will remain on sliding scale insulin per fingerstick blood sugars #5 hyperlipidemia-patient is on Crestor #6 episodic nausea and vomiting over the last several weeks-I will change the patient's diet to clear liquids and have gastroenterology see the patient for possible EGD, her senior living transfer will be on hold at this point. Patient is on a PPI currently. Total clinical time spent by myself addressing the patient's medical issues, reviewing all of her data, and collaborating with patient's care team: 25 minutes Charges/Coding Visit Charges Inpatient E&M: 59779 Subs Hosp L1
[2023-11-29 16:57] LABS: Bedside Glucose 195 mg/dL (74-106)
[2023-11-29] MEDS: oxyCODONE 5 MG Tablet 10 MG PO (17:52)
[2023-11-29] MEDS: Atorvastatin Calcium 20 MG Tablet PO (20:17)
[2023-11-29 20:36] LABS: Bedside Glucose 156 mg/dL (74-106)
[2023-11-30] VITALS (10 sets, daily range): BP systolic 105–143; BP diastolic 42–82; PULSE 52–59; RESP 16–18; TEMP 36.6–37.2; O2SAT 85–99; BMI 38.1
[2023-11-30] MEDS: Budesonide Respules 0.5 MG/2 ML AMPUL.NEB. INHALATION ×2 (07:12→19:20)
[2023-11-30] MEDS: Albuterol 2.5 MG/3 ML VIAL.NEB. INHALATION ×3 (07:12→19:20)
[2023-11-30 07:25] LABS: Bedside Glucose 137 mg/dL (74-106)
[2023-11-30] MEDS: Carvedilol 3.125 MG TABLET PO ×2 (08:15→16:36)
[2023-11-30] MEDS: Nystatin Ointment 1 APPLIC TOPICAL (08:15)
[2023-11-30] MEDS: Furosemide 40 MG Tablet PO (08:15)
[2023-11-30] MEDS: Multivitamins,Therapeutic Tablet 1 TABLET PO (08:15)
[2023-11-30] MEDS: Pantoprazole Sodium 40 MG Tablet PO (08:15)
[2023-11-30] MEDS: Insulin Glargine-YFGN 100 UNIT/ML Pen 10 UNIT SC ×2 (08:16→16:36)
[2023-11-30] MEDS: Heparin Injection (Vial) 5,000 UNIT/ML VIAL 5000 UNIT SC ×2 (08:16→22:42)
[2023-11-30] MEDS: Potassium Chloride Oral Tablet 20 MEQ PO ×2 (08:20→16:36)
[2023-11-30 11:43] LABS: Bedside Glucose 186 mg/dL (74-106)
--- NOTE | 2023-11-30 17:01 | EX.PCM.CON.G ---
HPI Consult Data Date of Consult: 11/30/23 HPI Narrative Reason for Consultation: Nausea vomiting with esophageal dysphagia HPI Narrative: JEANNETTE PATEL, is a 88 F with multiple comorbidities Including obesity with BMI of 37, dyslipidemia and GERD, who is hardly ambulatory at home brought to the emergency department by the . Patient apparently fell a day prior to her admission was tried to get into her sit to stand chair. She apparently twisted her left ankle which was straightened by the . Patient however could not lift patient of the floor not had to call EMS to assist. later noticed significant swelling in the evening he did apply ice without much improvement decision was therefore made for patient to present to the emergency department. Imaging studies obtained in the ED did show diffuse osteopenia, fracture of the lateral aspect of the lateral tibial plateau . Nondisplaced fracture of the proximal fibular metadiaphysis. Large joint effusion. Suspected fracture of the medial malleolus of the distal tibia. Oblique fracture of the distal fibula. Plantar and posterior calcaneal spurs. Soft tissue swelling around the ankle. Patient underwent immobilization in the ED orthopedic surgeon on-call Dr. Toledo was notified prior to patient being admitted to regular nursing floor. She was seen by orthopedic surgery and a nonsurgical treatment was recommended for tibial plateau fracture and fracture of the fibula. I was asked to see her due to some intermittent nausea vomiting that she experiences. [facility] Medical History (Updated 11/30/23 @ 17:[address] Velasquez Friend, DO) Anxiety Asthma Chest pain CHF (congestive heart failure) COPD (chronic obstructive pulmonary disease) Coronary artery disease DVT (deep venous thrombosis) Former smoker HTN (hypertension) Osteoporosis Stroke/cerebrovascular accident Home Medications albuterol sulfate 90 mcg/actuation aerosol inhaler 2 puff inhalation Q6H PRN shortness of breath or wheezing 11/25/23 [History Last Taken Unknown] carvedilol 3.125 mg tablet 3.125 mg PO Q12H 11/25/23 [History Last Taken 11/24/23] enalapril maleate 20 mg tablet 20 mg PO Q12H 11/25/23 [History Last Taken 11/24/23] fluticasone 500 mcg-salmeterol 50 mcg/dose blistr powdr for inhalation 1 inh inhalation Q12H 11/25/23 [History Last Taken 11/24/23] furosemide 40 mg tablet 40 mg PO DAILY 11/25/23 [History Last Taken 11/24/23] multivitamin (Daily Multi-Vitamin tablet) 1 tab PO DAILY 11/25/23 [History Last Taken 11/24/23] nystatin 100,000 unit/gram topical cream 1 applic topical DAILY 11/25/23 [History Last Taken Unknown] omeprazole 40 mg capsule,delayed release 40 mg PO DAILY 11/25/23 [History Last Taken 11/24/23] rosuvastatin 10 mg tablet 10 mg PO DAILY 11/25/23 [History Last Taken 11/24/23] aluminum-mag hydroxide-simethicone 400 mg-400 mg-40 mg/5 mL oral susp (Mag-Al Plus Extra Strength) 30 ml PO Q6H PRN PRN Gastric Burning #0 mL 11/29/23 [Rx Last Taken Unknown] heparin (porcine) 5,000 unit/mL injection solution 5,000 unit subcut Q12 #1 mL 11/29/23 [Rx Last Taken Unknown] insulin glargine-yfgn 100 unit/mL (3 mL) subcutaneous pen 10 unit (0.1 mL) subcut BREAKFAST #0 mL 11/29/23 [Rx Last Taken Unknown] insulin glargine-yfgn 100 unit/mL (3 mL) subcutaneous pen 10 unit (0.1 mL) subcut DINNER #0 mL 11/29/23 [Rx Last Taken Unknown] ondansetron HCl 8 mg tablet 8 mg PO Q6H PRN PRN nausea and vomiting #1 TAB 11/29/23 [Rx Last Taken Unknown] oxycodone 5 mg tablet 10 mg (2 x 5 mg) PO Q4H PRN PRN Pain Score 4-10 2 days #10 tabs 11/29/23 [Rx Last Taken Unknown] potassium chloride 20 mEq tablet,extended release(part/cryst) 20 meq PO BIDCM #0 tabs 11/29/23 [Rx Last Taken Unknown] sennosides 8.6 mg-docusate sodium 50 mg tablet (Stool Softener-Stimulant Laxative) 2 tab PO BID PRN PRN Constipation #0 tabs 11/29/23 [Rx Last Taken Unknown] Allergy/AdvReac Type Severity Reaction Status Date / Time acetaminophen [From Tylenol] Allergy Rash Verified 11/25/23 09:06 Penicillins Allergy Other Verified 11/25/23 09:06 Surgical History (Updated 11/25/23 @ 13:45 by Catalina Avila) History of appendectomy Social History Smoking Status: Former smoker ROS ROS Narrative GENERAL: denies fever, chills, night sweats, weight loss, anorexia HEENT: denies headache, sinus congestion, or drainage, dysphagia RESPIRATORY: denies cough, sputum production, shortness of breath, dyspnea on exertion CARDIAC: denies chest pain, palpitations, orthopnea, PND GASTROINTESTINAL: denies abdominal pain, nausea, vomiting, melena, GENITOURINARY: denies dysuria, urgency, frequency, heamaturia EXTREMITY: denies swelling MUSCULOSKELETAL: Left ankle and knee pain and swelling NEUROLOGIC: denies focal numbness, weakness, tingling HEMATOLOGIC: denies easy bruising and/or hemorrhage INTEGUMENT: denies rashes PSYCHIATRIC: denies suicidal or homicidal ideation Physical Exam Const alert and no apparent distress General Appearance: cooperative, well kempt and well developed Orientation / Consciousness: awake, oriented to person and oriented to place HEENT normocephalic, head/scalp atraumatic and moist oral mucous membranes Eyes PERRL, EOMs intact bilaterally and conjunctivae normal Neck supple, no JVD, thyroid normal and no carotid bruits General: trachea midline Resp normal respiratory effort, no retractions, no use of accessory muscles and clear to auscultation bilaterally Auscultation: Negative for rales, rhonchi or wheezes Cardio regular rate, regular rhythm, S1 normal heart sound, S2 normal heart sound, no murmurs, no rub and no gallops GI normal to inspection, nondistended, normoactive bowel sounds, soft to palpation, non-tender and non-distended Extremity no clubbing, cyanosis or edema Skin no rashes or lesions noted General Skin Exam: no breakdown Neuro CN's II-XII intact bilaterally, no focal motor deficits and no sensory deficits noted Sensorium / Orientation: awake and alert Speech: speech normal Psych affect normal Lab / Micro Data 11/28/23 06:32 11/28/23 06:32 Labs: Laboratory Results - last 24 hr 11/29/23 20:16: POC Glucose 156 H 11/30/23 06:57: POC Glucose 137 H 11/30/23 11:22: POC Glucose 186 H Rhythm Strip Rhythm Strip: Sinus Rhythm Rate: 75 Ectopy: PVC(s) Assessment & Plan Assessment/Plan (1) Nausea & vomiting: (2) Dysphagia: PLAN: Plan 88-year-old with multiple medical problems including gastroesophageal reflux disease, COPD, high blood pressure, hypercholesterolemia and a recent tib-fib fracture whose had prolonged episodes of nausea vomiting along with some intermittent esophageal dysphagia. After looking at her chest x-ray she does have a hiatal hernia which could be contributing to her symptoms and actually causing intermittent esophageal dysphagia through esophageal stricture. Also give diagnosis does include eosinophilic esophagitis, or esophagitis, Schatzki's ring, gastritis, duodenitis, gastroparesis. She should undergo an upper endoscopy for evaluation of her upper GI tract. Please give as needed p.o. and we will do an upper endoscopy on 12/01/2023. Charges/Coding Visit Charges Inpatient E&M: 81669 Init Hosp L3
[2023-11-30 17:06] LABS: Bedside Glucose 120 mg/dL (74-106)
--- NOTE | 2023-11-30 19:10 | PN.HOSP_ITS ---
Reason for Visit Reason for Visit: Diagnoses Nausea with vomiting, unspecified (11/25/23) Dysphagia, unspecified (11/25/23) Displaced bicondylar fracture of left tibia, initial encounter for closed fracture (11/25/23) Other fracture of upper and lower end of left fibula, initial encounter for closed fracture (11/25/23) Displaced bimalleolar fracture of left lower leg, initial encounter for closed fracture (11/25/23) Displaced Maisonneuve's fracture of left leg, initial encounter for closed fracture (11/25/23) Displaced pilon fracture of left tibia, initial encounter for closed fracture (11/25/23) Subjective Subjective Patient was seen and examined today, I talked briefly with her who was in the room at the time my examination. Patient was not able to undergo an EGD today, it will be performed tomorrow. Patient has no complaints of nausea and vomiting this morning. Objective Data Objective Data Vital Signs: Vital Signs Temp Pulse Resp BP Pulse Ox O2 Del Method O2 Flow Rate 98.5 F 59 L 18 118/45 L 97 Nasal Cannula 2 11/30/23 14:49 11/30/23 14:49 11/30/23 14:49 11/30/23 14:49 11/30/23 14:49 11/30/23 14:49 11/30/23 14:49 FiO2 2 11/28/23 15:04 Oxygen Flow Rate (L/min) 2 Oxygen Delivery Method Nasal Cannula Weight: 88.1 kg Body Mass Index (BMI) 38.1 Intake & Output: Intake and Output for Last 24 Hours 11/28/23 11/29/23 11/30/23 23:59 23:59 23:59 Intake Total 920 / 920 Output Total 1750 / 1750 1350 / 1600 1200 / 1200 Balance -830 / -830 -1350 / -1600 -1200 / -1200 Lab / Micro Data 11/28/23 06:32 11/28/23 06:32 Labs: Laboratory Results - last 24 hr 11/29/23 20:16: POC Glucose 156 H 11/30/23 06:57: POC Glucose 137 H 11/30/23 11:22: POC Glucose 186 H 11/30/23 16:32: POC Glucose 120 H Rhythm Strip Rhythm Strip: Sinus Rhythm Rate: 75 Ectopy: PVC(s) Physical Exam Narrative alert and no apparent distress General Appearance: cooperative, well kempt and well developed Orientation / Consciousness: awake, oriented to person and oriented to place HEENT normocephalic, head/scalp atraumatic and moist oral mucous membranes Eyes PERRL, EOMs intact bilaterally and conjunctivae normal Neck supple, no JVD, thyroid normal and no carotid bruits General: trachea midline Resp normal respiratory effort, no retractions, no use of accessory muscles and clear to auscultation bilaterally Auscultation: Negative for rales, rhonchi or wheezes Cardio regular rate, regular rhythm, S1 normal heart sound, S2 normal heart sound, no murmurs, no rub and no gallops GI normal to inspection, nondistended, normoactive bowel sounds, soft to palpation, non-tender and non-distended Extremity no clubbing, cyanosis or edema Skin no rashes or lesions noted General Skin Exam: no breakdown Neuro CN's II-XII intact bilaterally, no focal motor deficits and no sensory deficits noted Sensorium / Orientation: awake and alert Speech: speech normal Psych affect normal Assessment & Plan Assessment/Plan (1) Tibial plateau fracture, left: QUALIFIERS: Encounter type: subsequent encounter Fracture type: closed (2) Fracture of left tibial plafond with involvement of fibula: QUALIFIERS: Encounter type: initial encounter Fracture type: closed Qualified Code(s): S82.872A - Displaced pilon fracture of left tibia, initial encounter for closed fracture; S82.832A - Other fracture of upper and lower end of left fibula, initial encounter for closed fracture (3) Bimalleolar fracture of left ankle: QUALIFIERS: Encounter type: initial encounter Fracture type: closed Qualified Code(s): S82.842A - Displaced bimalleolar fracture of left lower leg, initial encounter for closed fracture PLAN: Plan 1. Left tibial plateau fracture-this is nondisplaced and no surgery is planned for this fracture. Patient will need short-term placement in a nursing home facility for short-term skilled services. #2 fracture of the medial malleolus of the left distal tibia, oblique fracture of the left distal fibula-continued immobility of the area, no surgery is planned for her ankle fracture #3 essential hypertension-patient will remain on current medication #4 type 2 diabetes-patient will remain on sliding scale insulin per fingerstick blood sugars #5 hyperlipidemia-patient is on Crestor #6 episodic nausea and vomiting over the last several weeks-patient remains on a PPI at this time and clear liquids, she will have an EGD performed tomorrow Total clinical time spent by myself addressing the patient's medical issues, reviewing all of her data, and collaborating with patient's care team: 25 minutes Charges/Coding Visit Charges Inpatient E&M: 96706 Subs Hosp L1
[2023-11-30] MEDS: Atorvastatin Calcium 20 MG Tablet PO (22:42)
[2023-11-30] MEDS: oxyCODONE 5 MG Tablet 10 MG PO (22:46)
[2023-11-30 23:17] LABS: Bedside Glucose 134 mg/dL (74-106)
[2023-12-01] VITALS (12 sets, daily range): BP systolic 87–151; BP diastolic 46–68; PULSE 56–69; RESP 16–18; TEMP 36.1–37.1; O2SAT 94–100; BMI 36.6; BMI 36.3
[2023-12-01] MEDS: Albuterol 2.5 MG/3 ML VIAL.NEB. INHALATION ×2 (07:00→13:50)
[2023-12-01] MEDS: Budesonide Respules 0.5 MG/2 ML AMPUL.NEB. INHALATION (07:00)
[2023-12-01 07:16] LABS: Bedside Glucose 159 mg/dL (74-106)
[2023-12-01] MEDS: oxyCODONE 5 MG Tablet 10 MG PO (07:25)
[2023-12-01] MEDS: Pantoprazole Sodium 40 MG Tablet PO (08:08)
[2023-12-01] MEDS: Lactated Ringers 1,000 ML 15 ML IV (11:46)
[2023-12-01 11:51] LABS: Bedside Glucose 174 mg/dL (74-106)
--- NOTE | 2023-12-01 12:45 | IMM_PTH ---
PATHOLOGY RESULTS PATIENT: JEANNETTE PATEL LOC: MS3 U#:[id number] AGE/SX: 88/F ROOM: [facility] RE11/25/[address]: Dr. Sami Carney DO : 1935 BED: 1 DIS: 12/01/2023 SPEC #: [id number] RECD: 12/01/23 14:17 STATUS: JOSE REQ #: [id number] MEGHA: 12/01/23 12:[address]: Ron Land DEPT: IMMUNOHISTOCHEMISTRY RECD BY: More Ol[place] ENTERED: 12/01/23 14:18 SP TYPE: IMMUNO OTHR DR: MD Dr. Kirby Sams DO Dr. Michael Knapic, DO Dr. Sami Carney, Tissues: Stomach, NOS Procedures: H Pylori (initial) PHYSICIAN & INSTITUTION [place] [id number] SPECIMEN INFORMATION: Tissue Source: A - Gastric body Clinical Info: Dysphagia, nausea and vomiting Specimen Number: [id number] CPT code: 08186 METHODOLOGY: Deparaffinized sections of prefer/formalin-fixed tissue or PAP/DQ stained slides are incubated with monoclonal/polyclonal antibodies/oligonucleotide probes. Localization is made via biotin free immunoperoxidase method. Appropriate controls are performed and reacted as expected. Results on target cell population are indicated in the following table: RESULTS: ANTIBODY / CLONE RESULT Block A H Pylori (polyclonal) negative These tests were developed and their performance characteristics determined by [facility]. They may not have been cleared or approved by the U.S. Food and Drug Administration. The FDA has determined that such clearance or approval is not necessary. The above immunohistochemical/dualISH markers are ordered and reviewed by the Pathologist. INTERPRETATION: A. Gastric body, biopsy: Negative for Helicobacter pylori organisms. NIKKI:lorenzo 12/05/2023
--- NOTE | 2023-12-01 12:45 | EGD_PTH ---
PATHOLOGY RESULTS PATIENT: JEANNETTE PATEL LOC: MS3 U#:[id number] AGE/SX: 88/F ROOM: [facility] RE11/25/[address]: Dr. Sami Carney DO : 1935 BED: 1 DIS: 12/01/2023 SPEC #: [id number] RECD: 12/01/23 13:22 STATUS: JOSE HICKEY #: [id number] MEGHA: 12/01/23 12:[address]: Ron Land DEPT: SURGICAL PATHOLOGY RECD BY: Shaniqua Ayala ENTERED: 12/01/23 13:43 SP TYPE: EGD BIOPSY OTHR DR: MD Dr. Kirby Sams DO Dr. Michael Knapic, DO Dr. Mark Tereletsky, Tissues: Gastric mucous membrane Duodenum, NOS Procedures: Surgery Specimen Level IV Comments: @ Ordering doctor for SUIV edited from to @ by MANJULA at 12/01/23 1418 @ Submitting doctor edited from to @ by MANJULA at 12/01/23 1418 HEADER OPERATION: EGD with dilation with biopsy PRE-OP DIAGNOSIS: Dysphagia, nausea and vomiting TISSUE SUBMITTED: A - Gastric body, B - Duodenum biopsy MICROSCOPIC DIAGNOSIS A. Gastric body, biopsy: Mild gastritis. See microscopic description and comment. B. Duodenum, biopsy: Fragments of duodenal mucosa with focal villous blunting and mild nonspecific chronic inflammation. SJ:lorenzo 12/05/2023 COMMENT A. The results of immunohistochemistry for Helicobacter pylori will be reported separately ([id number]). MICROSCOPIC DESCRIPTION Slides are reviewed. A. The specimen shows fragments of gastric mucosa with chronic inflammatory cell infiltrates in the lamina propria consisting of lymphocytes and plasma cells, consistent with mild chronic gastritis. GROSS DESCRIPTION A - Received in fixative is one container labeled with the patient's name and designated gastric body. The specimen consists of two irregular fragments of light childers soft tissue that in aggregate measure 0.8 x 0.2 x 0.1 cm. The specimen is totally submitted in one cassette. B - Received in fixative is one container labeled with the patient's name and designated duodenum biopsy. The specimen consists of one irregular fragment of light childers soft tissue that measures 0.3 x 0.3 x 0.1 cm. The specimen is totally submitted in one cassette. SJ/bl 12/01/23 TC:3 CPT: 22704 x2
--- NOTE | 2023-12-01 13:20 | OP.CCLET_ITS ---
12/01/2023 Kirby Dukes Re : Upper GI endoscopy procedure for Halle Amos Dear Ernst This procedure was performed on November. My impressions and recommendations are as follows: Impressions : - Abnormal esophageal motility, suspicious for achalasia. Dilated. - Acute gastritis. Biopsied. - Acute duodenitis. Biopsied. Recommendations : - Await pathology results. - Continue present medications. My findings are described in the full procedure note, which is enclosed. If I can be of further assistance, please feel free to contact me at . Sincerely, Ron Land, 12/01/2023 1:19:42 PM This report has been signed electronically.
--- NOTE | 2023-12-01 13:20 | OP.EGD_ITS ---
Patient Name: Halle Amos Procedure Date: 12/01/2023 12:18 PM Date of : 1935 Age: 88 Procedure: Upper GI endoscopy Indications: Dysphagia Providers: Ron Land DO Medicines: Monitored Anesthesia Care Patient Profile: This is an 88 year old female. Refer to note in patient chart for documentation of history and physical. Patient has symptoms of acute dysphagia, dysphagia with both liquids and solids and chronic nausea. Complications: No immediate complications. Procedure: Pre-Anesthesia Assessment: - Prior to the procedure, a History and Physical was performed, and patient medications and allergies were reviewed. The patient is competent. The risks and benefits of the procedure and the sedation options and risks were discussed with the patient. All questions were answered and informed consent was obtained. Patient identification and proposed procedure were verified in the pre-procedure area. Mental Status Examination: alert and oriented. Airway Examination: normal oropharyngeal airway and neck mobility. Respiratory Examination: clear to auscultation. CV Examination: normal. Prophylactic Antibiotics: The patient does not require prophylactic antibiotics. Prior Anticoagulants: The patient has taken no anticoagulant or antiplatelet agents. ASA Grade Assessment: III - A patient with severe systemic disease. After reviewing the risks and benefits, the patient was deemed in satisfactory condition to undergo the procedure. The anesthesia plan was to use monitored anesthesia care (MAC). Immediately prior to administration of medications, the patient was re-assessed for adequacy to receive sedatives. The heart rate, respiratory rate, oxygen saturations, blood pressure, adequacy of pulmonary ventilation, and response to care were monitored throughout the procedure. The physical status of the patient was re-assessed after the procedure. After obtaining informed consent, the endoscope was passed under direct vision. Throughout the procedure, the patient's blood pressure, pulse, and oxygen saturations were monitored continuously. The gastroscope was introduced through the mouth, and advanced to the second part of duodenum. The upper GI endoscopy was accomplished with ease. The patient tolerated the procedure well. Scope In: 12:27:32 PM Scope Out: 12:32:08 PM Total Procedure Duration Time 0 hours 4 minutes 36 seconds Findings: Abnormal motility was noted at the cricopharyngeus. The cricopharyngeus was abnormal. There is spasticity of the esophageal body. The distal esophagus/lower esophageal sphincter is spastic, but gives up passage to the endoscope. Tertiary peristaltic waves are noted. A guidewire was placed and the scope was withdrawn. Dilation was performed with a Savary dilator with no resistance at 45 Fr. A guidewire was placed and the scope was withdrawn. Dilation was performed with a Savary dilator with no resistance at 51 Fr. The dilation site was examined following endoscope reinsertion and showed moderate mucosal disruption. Estimated blood loss was minimal. Localized moderate inflammation characterized by erosions and erythema was found in the gastric body. Biopsies were taken with a cold forceps for histology. Verification of patient identification for the specimen was done. Biopsies were taken with a cold forceps for Helicobacter pylori testing. Verification of patient identification for the specimen was done. Estimated blood loss was minimal. Localized moderate inflammation characterized by congestion (edema), erosions and erythema was found in the duodenal bulb. Biopsies were taken with a cold forceps for histology. Impression: - Abnormal esophageal motility, suspicious for achalasia. Dilated. - Acute gastritis. Biopsied. - Acute duodenitis. Biopsied. Recommendation: - Await pathology results. - Continue present medications. Procedure Code(s): --- Professional --- 77717, Esophagogastroduodenoscopy, flexible, transoral; with insertion of guide wire followed by passage of dilator(s) through esophagus over guide wire 24984, 59,51, Esophagogastroduodenoscopy, flexible, transoral; with biopsy, single or multiple CPT copyright 2021 [employer]. All rights reserved. The codes documented in this report are preliminary and upon clinical coder review may be revised to meet current compliance requirements. Ron Land DO 12/01/2023 1:19:42 PM This report has been signed electronically. Number of Addenda: 0 Note Initiated On: 12/01/2023 12:18 PM
--- NOTE | 2023-12-01 14:21 | TREXTCAR_ITS ---
Diet Diet Order/Speech Therapy: 12/01/23 13:51 Carb [Diet: Carbohydrate Controlled]-1600 minesh Food consistency:: Soft & Bite Sized Dietary Modifications:: Cardiac / Heart Healthy Consistent Carbohydrate Is pt able to select menu?: No Diet Comments: distant supervision Routine Orders/Code Status O2 Liters per Minute: 2 O2 Frequency: Continuous Keep PO Greater than or Equal to (%): 88 Routine Lab Work: - (Fingerstick blood sugars AC nightly, Humalog subcu per sliding scale: 200-250: 5 units, 251-300: 8 units, 301-350: 12 units) Code Status: Full Code Wound(s) Lt ankle fracture non-surgical: Wound Type: fracture non-surgical Blister L Groin: Wound Type: Blister-Intact Blister Left buttock x 2: Wound Type: Blister Therapies Weight Bearing: Non weight bearing (left leg) Physical Therapy: Eval and Treat Occupational Therapy: Eval and Treat Problem/Diagnosis (1) Tibial plateau fracture, left: Status: Acute Code(s): S82.142A - Displaced bicondylar fracture of left tibia, initial encounter for closed fracture (2) Fracture of left tibial plafond with involvement of fibula: Status: Acute Code(s): S82.872A - Displaced pilon fracture of left tibia, initial encounter for closed fracture; S82.832A - Other fracture of upper and lower end of left fibula, initial encounter for closed fracture (3) Bimalleolar fracture of left ankle: Status: Acute Code(s): S82.842A - Displaced bimalleolar fracture of left lower leg, initial encounter for closed fracture Plan 1. Left tibial plateau fracture-this is nondisplaced and no surgery is planned for this fracture. Patient will need short-term placement in a half-way facility for short-term skilled services. #2 fracture of the medial malleolus of the left distal tibia, oblique fracture of the left distal fibula-continued immobility of the area, no surgery is planned for her ankle fracture #3 essential hypertension-patient will remain on current medication #4 type 2 diabetes-patient will remain on sliding scale insulin per fingerstick blood sugars #5 hyperlipidemia-patient is on Crestor #6 episodic nausea and vomiting over the last several weeks-patient remains on a PPI at this time and clear liquids, she will have an EGD performed tomorrow #7 Achalasia-esophagus dilated with endoscopy #8 Duodenitis and gastritis Total clinical time spent by myself addressing the patient's medical issues, reviewing all of her data, and collaborating with patient's care team: 25 minutes Allergies/Procedures Done in Hospital Allergies acetaminophen [From Tylenol] Allergy (Verified 11/25/23 09:06) Rash Penicillins Allergy (Verified 11/25/23 09:06) Other puffs me up Procedures: EGD (With esophageal dilation) Type of Care/Length of Stay Estimated LOS: Convalescent Care Less Than 30 days Type of Care Needed: Skilled Rehab Potential: Good Prognosis: Good Additional Orders/Day of Discharge H&P will serve as current which was dated: 11/25/23 Day of Discharge: 11/29/23 Dietary and Speech Recommendations Dietitian Recommendations/Changes: Will adjust diet to 1600 calorie, consistent carbohydrate; cardiac/sodium-restricted with [id number] food/thin liquids and supervised meals. Fluid Restriction as needed per physician. ONS if PO declines below 50% meals. Discharge Plan Admission Admit Date/Time: 11/25/23 12:18 Primary Reason for Your Visit: Left tibial plateau fracture, fracture of the left ankle Attending Provider: Sami Carney Primary Care Provider: Kirby Dukes Consulting Providers: Delbert Toledo; Stevan Alexander Instructions Additional Instructions / Restrictions: Ice to knee and ankle as needed, patient to wear knee immobilizer Aircast at all times except for personal hygiene, patient is to remain nonweightbearing left leg Discharge Orders/Prescriptions Prescriptions: New heparin (porcine) 5,000 unit/mL Solution 5,000 unit subcut Q12 Qty: 1 0RF alum-mag hydroxide-simeth [Mag-Al Plus Extra Strength] 400-400-40 mg/5 mL Suspension 30 ml PO Q6H PRN PRN (Reason: Gastric Burning) Qty: 0 0RF oxycodone 5 mg Tablet 10 mg PO Q4H PRN PRN (Reason: Pain Score 4-10) 2 Days Qty: 10 0RF insulin glargine-yfgn 100 unit/mL (3 mL) Insulin Pen 10 unit subcut DINNER Qty: 0 0RF insulin glargine-yfgn 100 unit/mL (3 mL) Insulin Pen 10 unit subcut BREAKFAST Qty: 0 0RF sennosides-docusate sodium [Stool Softener-Stimulant Laxat] 8.6-50 mg Tablet 2 tab PO BID PRN PRN (Reason: Constipation) Qty: 0 0RF potassium chloride 20 mEq Tablet,Er Particles/Crystals 20 meq PO BIDCM Qty: 0 0RF ondansetron HCl 8 mg tablet 8 mg PO Q6H PRN PRN (Reason: nausea and vomiting) Qty: 1 0RF Continued carvedilol 3.125 mg tablet 3.125 mg PO Q12H enalapril maleate 20 mg tablet 20 mg PO Q12H fluticasone propion-salmeterol 500-50 mcg/dose blister with device 1 inh INHALATION Q12H furosemide 40 mg tablet 40 mg PO DAILY nystatin 100,000 unit/gram cream 1 applic TOPICAL DAILY omeprazole 40 mg capsule,delayed release(DR/EC) 40 mg PO DAILY rosuvastatin 10 mg tablet 10 mg PO DAILY multivitamin [Daily Multi-Vitamin] Tablet 1 tab PO DAILY albuterol sulfate 90 mcg/actuation HFA aerosol inhaler 2 puff INHALATION Q6H PRN (Reason: shortness of breath or wheezing) Patient Comments: inhale 2 puffs by mouth and INTO THE LUNGS every 6 hours if needed Discontinued glimepiride 1 mg tablet 1 mg PO DAILY Referrals / Follow Up: Kirby Dukes DO [Primary Care Provider] - Delbert Toledo DO [Med Staff - Active Staff] - See Referral Note (In 2 weeks) Disposition Disposition (needs filled in before D/C Order can be placed): [facility] (1) Tibial plateau fracture, left Qualifiers: Encounter type: subsequent encounter Fracture type: closed (2) Fracture of left tibial plafond with involvement of fibula Qualifiers: Encounter type: initial encounter Fracture type: closed Qualified Code(s): S82.872A - Displaced pilon fracture of left tibia, initial encounter for closed fracture; S82.832A - Other fracture of upper and lower end of left fibula, initial encounter for closed fracture (3) Bimalleolar fracture of left ankle Qualifiers: Encounter type: initial encounter Fracture type: closed Qualified Code(s): S82.842A - Displaced bimalleolar fracture of left lower leg, initial encounter for closed fracture
--- NOTE | 2023-12-01 14:31 | DS.PCM_ITS ---
Providers Date of Admission: 11/25/23 Date of Discharge: 12/01/23 Primary Care Physician: Dr. Kirby Dukes, Consultations 11/25/23 13:27 Consult: Orthopedics Routine Consulting Provider: Delbert Toledo Reason for Consult: Left tibial plateau fracture EMERGENT Consult: No Notified: Yes Date Notified: 11/25/23 Time Notified: 12:27 Method of Notification: ED Physician Initiated 11/29/23 16:00 Consult: Gastroenterology Routine Consulting Provider: [facility] Reason for Consult: need for EGD, episodic vomiting times 4 weeks, trouble swallowing EMERGENT Consult: No MD Notified: Yes Date Notified: 11/29/23 Time Notified: 18:29 Method of Notification: Text Reason For Visit: LEFT ANKLE FRACTURE Diagnosis Discharge Diagnosis (1) Tibial plateau fracture, left: Status: Acute Code(s): S82.142A - Displaced bicondylar fracture of left tibia, initial encounter for closed fracture Qualifiers: Encounter type: subsequent encounter Fracture type: closed (2) Fracture of left tibial plafond with involvement of fibula: Status: Acute Code(s): S82.872A - Displaced pilon fracture of left tibia, initial encounter for closed fracture; S82.832A - Other fracture of upper and lower end of left fibula, initial encounter for closed fracture Qualifiers: Encounter type: initial encounter Fracture type: closed Qualified Code(s): S82.872A - Displaced pilon fracture of left tibia, initial encounter for closed fracture; S82.832A - Other fracture of upper and lower end of left fibula, initial encounter for closed fracture (3) Bimalleolar fracture of left ankle: Status: Acute Code(s): S82.842A - Displaced bimalleolar fracture of left lower leg, initial encounter for closed fracture Qualifiers: Encounter type: initial encounter Fracture type: closed Qualified Code(s): S82.842A - Displaced bimalleolar fracture of left lower leg, initial encounter for closed fracture Plan 1. Left tibial plateau fracture-this is nondisplaced and no surgery is planned for this fracture. Patient will need short-term placement in a half-way facility for short-term skilled services. #2 fracture of the medial malleolus of the left distal tibia, oblique fracture of the left distal fibula-continued immobility of the area, no surgery is planned for her ankle fracture #3 essential hypertension-patient will remain on current medication #4 type 2 diabetes-patient will remain on sliding scale insulin per fingerstick blood sugars #5 hyperlipidemia-patient is on Crestor #6 episodic nausea and vomiting over the last several weeks-patient remains on a PPI at this time and clear liquids, she will have an EGD performed tomorrow #7 Achalasia-esophagus dilated with endoscopy #8 Duodenitis and gastritis Total clinical time spent by myself addressing the patient's medical issues, reviewing all of her data, and collaborating with patient's care team: 25 minutes Medications at Discharge Home Medications albuterol sulfate 90 mcg/actuation aerosol inhaler 2 puff inhalation Q6H PRN shortness of breath or wheezing 11/25/23 carvedilol 3.125 mg tablet 3.125 mg PO Q12H 11/25/23 enalapril maleate 20 mg tablet 20 mg PO Q12H 11/25/23 fluticasone 500 mcg-salmeterol 50 mcg/dose blistr powdr for inhalation 1 inh inhalation Q12H 11/25/23 furosemide 40 mg tablet 40 mg PO DAILY 11/25/23 multivitamin (Daily Multi-Vitamin tablet) 1 tab PO DAILY 11/25/23 nystatin 100,000 unit/gram topical cream 1 applic topical DAILY 11/25/23 omeprazole 40 mg capsule,delayed release 40 mg PO DAILY 11/25/23 rosuvastatin 10 mg tablet 10 mg PO DAILY 11/25/23 aluminum-mag hydroxide-simethicone 400 mg-400 mg-40 mg/5 mL oral susp (Mag-Al Plus Extra Strength) 30 ml PO Q6H PRN PRN Gastric Burning #0 mL 11/29/23 heparin (porcine) 5,000 unit/mL injection solution 5,000 unit subcut Q12 #1 mL 11/29/23 insulin glargine-yfgn 100 unit/mL (3 mL) subcutaneous pen 10 unit (0.1 mL) subcut BREAKFAST #0 mL 11/29/23 insulin glargine-yfgn 100 unit/mL (3 mL) subcutaneous pen 10 unit (0.1 mL) subcut DINNER #0 mL 11/29/23 ondansetron HCl 8 mg tablet 8 mg PO Q6H PRN PRN nausea and vomiting #1 TAB 11/29/23 oxycodone 5 mg tablet 10 mg (2 x 5 mg) PO Q4H PRN PRN Pain Score 4-10 2 days #10 tabs 11/29/23 potassium chloride 20 mEq tablet,extended release(part/cryst) 20 meq PO BIDCM #0 tabs 11/29/23 sennosides 8.6 mg-docusate sodium 50 mg tablet (Stool Softener-Stimulant Laxative) 2 tab PO BID PRN PRN Constipation #0 tabs 11/29/23 Hospital Course Operations None Procedures None Weight / BMI Weight Weight: 84.567 kg Body Mass Index (BMI) 36.3 ABG / Lab / Microbiology Data 11/28/23 06:32 11/28/23 06:32 Laboratory: Laboratory Results - last 24 hr 11/30/23 16:32: POC Glucose 120 H 11/30/23 22:28: POC Glucose 134 H 12/01/23 06:59: POC Glucose 159 H 12/01/23 11:20: POC Glucose 174 H Discharge Plan Admission Admit Date/Time: 11/25/23 12:18 Primary Reason for Your Visit: Left tibial plateau fracture, fracture of the left ankle Attending Provider: Sami Carney Primary Care Provider: Kirby Dukes Consulting Providers: Delbert Toledo; Stevan Alexander Instructions Additional Instructions / Restrictions: Ice to knee and ankle as needed, patient to wear knee immobilizer Aircast at all times except for personal hygiene, patient is to remain nonweightbearing left leg Discharge Orders/Prescriptions Prescriptions: New heparin (porcine) 5,000 unit/mL Solution 5,000 unit subcut Q12 Qty: 1 0RF alum-mag hydroxide-simeth [Mag-Al Plus Extra Strength] 400-400-40 mg/5 mL Suspension 30 ml PO Q6H PRN PRN (Reason: Gastric Burning) Qty: 0 0RF oxycodone 5 mg Tablet 10 mg PO Q4H PRN PRN (Reason: Pain Score 4-10) 2 Days Qty: 10 0RF insulin glargine-yfgn 100 unit/mL (3 mL) Insulin Pen 10 unit subcut DINNER Qty: 0 0RF insulin glargine-yfgn 100 unit/mL (3 mL) Insulin Pen 10 unit subcut BREAKFAST Qty: 0 0RF sennosides-docusate sodium [Stool Softener-Stimulant Laxat] 8.6-50 mg Tablet 2 tab PO BID PRN PRN (Reason: Constipation) Qty: 0 0RF potassium chloride 20 mEq Tablet,Er Particles/Crystals 20 meq PO BIDCM Qty: 0 0RF ondansetron HCl 8 mg tablet 8 mg PO Q6H PRN PRN (Reason: nausea and vomiting) Qty: 1 0RF Continued carvedilol 3.125 mg tablet 3.125 mg PO Q12H enalapril maleate 20 mg tablet 20 mg PO Q12H fluticasone propion-salmeterol 500-50 mcg/dose blister with device 1 inh INHALATION Q12H furosemide 40 mg tablet 40 mg PO DAILY nystatin 100,000 unit/gram cream 1 applic TOPICAL DAILY omeprazole 40 mg capsule,delayed release(DR/EC) 40 mg PO DAILY rosuvastatin 10 mg tablet 10 mg PO DAILY multivitamin [Daily Multi-Vitamin] Tablet 1 tab PO DAILY albuterol sulfate 90 mcg/actuation HFA aerosol inhaler 2 puff INHALATION Q6H PRN (Reason: shortness of breath or wheezing) Patient Comments: inhale 2 puffs by mouth and INTO THE LUNGS every 6 hours if needed Discontinued glimepiride 1 mg tablet 1 mg PO DAILY Referrals / Follow Up: Kirby Dukes DO [Primary Care Provider] - Delbert Toledo DO [Med Staff - Active Staff] - See Referral Note (In 2 weeks) Disposition Disposition (needs filled in before D/C Order can be placed): [facility]
--- NOTE | 2023-12-01 15:19 | PHA.DC_ITS ---
Pharmacy ID Med Reconciliation Pharmacy Service has performed discharge medication reconciliation for this patient upon transfer to [facility]. The patient's discharge medication list was reviewed for discrepancies and discrepancies were resolved. Medications at Discharge Home Medications albuterol sulfate 90 mcg/actuation aerosol inhaler 2 puff inhalation Q6H PRN shortness of breath or wheezing 11/25/23 carvedilol 3.125 mg tablet 3.125 mg PO Q12H 11/25/23 enalapril maleate 20 mg tablet 20 mg PO Q12H 11/25/23 fluticasone 500 mcg-salmeterol 50 mcg/dose blistr powdr for inhalation 1 inh inhalation Q12H 11/25/23 furosemide 40 mg tablet 40 mg PO DAILY 11/25/23 multivitamin (Daily Multi-Vitamin tablet) 1 tab PO DAILY 11/25/23 nystatin 100,000 unit/gram topical cream 1 applic topical DAILY 11/25/23 omeprazole 40 mg capsule,delayed release 40 mg PO DAILY 11/25/23 rosuvastatin 10 mg tablet 10 mg PO DAILY 11/25/23 aluminum-mag hydroxide-simethicone 400 mg-400 mg-40 mg/5 mL oral susp (Mag-Al Plus Extra Strength) 30 ml PO Q6H PRN PRN Gastric Burning #0 mL 11/29/23 heparin (porcine) 5,000 unit/mL injection solution 5,000 unit subcut Q12 #1 mL 11/29/23 insulin glargine-yfgn 100 unit/mL (3 mL) subcutaneous pen 10 unit (0.1 mL) subcut BREAKFAST #0 mL 11/29/23 insulin glargine-yfgn 100 unit/mL (3 mL) subcutaneous pen 10 unit (0.1 mL) subcut DINNER #0 mL 11/29/23 ondansetron HCl 8 mg tablet 8 mg PO Q6H PRN PRN nausea and vomiting #1 TAB 11/29/23 oxycodone 5 mg tablet 10 mg (2 x 5 mg) PO Q4H PRN PRN Pain Score 4-10 2 days #10 tabs 11/29/23 potassium chloride 20 mEq tablet,extended release(part/cryst) 20 meq PO BIDCM #0 tabs 11/29/23 sennosides 8.6 mg-docusate sodium 50 mg tablet (Stool Softener-Stimulant Laxative) 2 tab PO BID PRN PRN Constipation #0 tabs 11/29/23
--- NOTE | 2023-12-01 15:20 | CASEMGMT ---
Social Work Per physician, pt is ready for discharge today. Discharge orders and completed 7000 sent to [facility] via [facility]. 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 Pt's spouse, nurse and [facility] notified of discharge time. Disposition: [facility], skilled level of care under convalescent stay LIONEL Galvan
[2023-12-01] MEDS: Insulin Glargine-YFGN 100 UNIT/ML Pen 10 UNIT SC (16:23)
[2023-12-01] MEDS: Insulin Lispro 100 UNIT/ML INSULN.PEN SC (16:23)
[2023-12-01] MEDS: Carvedilol 3.125 MG TABLET PO (16:24)
[2023-12-01] MEDS: Potassium Chloride Oral Tablet 20 MEQ PO (16:25)
[2023-12-01 16:48] LABS: Bedside Glucose 166 mg/dL (74-106)
--- NOTE | 2023-12-01 17:20 | EX.PCM.PN.GI ---
Subjective Subjective Patient is doing very well. She has minimal pain in her fractured leg. She denies any chest pain or shortness of breath. Objective Data Objective Data Vital Signs: Vital Signs Temp Pulse Resp BP Pulse Ox O2 Del Method O2 Flow Rate 97.5 F L 58 L 16 116/55 L 100 Nasal Cannula 2 12/01/23 13:22 12/01/23 13:50 12/01/23 13:50 12/01/23 13:22 12/01/23 13:22 12/01/23 13:22 12/01/23 13:22 FiO2 2 11/28/23 15:04 Oxygen Flow Rate (L/min) 2 Oxygen Delivery Method Nasal Cannula Weight: 186 lb 7 oz Body Mass Index (BMI) 36.3 Intake & Output: Intake and Output for Last 24 Hours 11/29/23 11/30/23 12/01/23 23:59 23:59 23:59 Intake Total 25 / 25 Output Total 1350 / 1600 1450 / 1450 450 / 450 Balance -1350 / -1600 -1450 / -1450 -425 / -425 Lab / Micro Data 11/28/23 06:32 11/28/23 06:32 Labs: Laboratory Results - last 24 hr 11/30/23 22:28: POC Glucose 134 H 12/01/23 06:59: POC Glucose 159 H 12/01/23 11:20: POC Glucose 174 H 12/01/23 16:20: POC Glucose 166 H Rhythm Strip Rhythm Strip: Sinus Rhythm Rate: 75 Ectopy: PVC(s) Assessment & Plan Assessment/Plan (1) Nausea & vomiting: (2) Dysphagia: PLAN: Plan 88-year-old with multiple medical problems including gastroesophageal reflux disease, COPD, high blood pressure, hypercholesterolemia and a recent tib-fib fracture whose had prolonged episodes of nausea vomiting along with some intermittent esophageal dysphagia. After looking at her chest x-ray she does have a hiatal hernia which could be contributing to her symptoms and actually causing intermittent esophageal dysphagia through esophageal stricture. Also give diagnosis does include eosinophilic esophagitis, or esophagitis, Schatzki's ring, gastritis, duodenitis, gastroparesis. She should undergo an upper endoscopy for evaluation of her upper GI tract. Please give as needed p.o. and we will do an upper endoscopy on 12/01/2023. -Gastroesophageal reflux disease with esophageal stricture. She is status post dilation without any nausea vomiting or diarrhea. She is doing well and is able to take in more substantial food on a daily basis.
== END 2023-12-01 20:05 | disposition skilled nursing facility (03) | DRG 563 ==
LOC: ED 11:48 → MS3 12:32
PROVIDERS: Internal Medicine Gastroenterology; Admitting Provider Internal Medicine; Emergency Provider Emergency Medicine; PCP Family Medicine; Visit Provider Internal Medicine
PROC: 0DJ08ZZ Inspection of Upper Intestinal Tract, Via Natural or Artificial Opening Endoscopic (ICD-10-PCS; CPT 43235; principal; 2023-12-01 12:40)
DX: S82.832A Other fracture of upper and lower end of left fibula, initial encounter for closed fracture (principal); I69.352 Hemiplegia and hemiparesis following cerebral infarction affecting left dominant side; K22.0 Achalasia of cardia; I11.0 Hypertensive heart disease with heart failure; E11.9 Type 2 diabetes mellitus without complications; D64.9 Anemia, unspecified; E66.9 Obesity, unspecified; I50.9 Heart failure, unspecified; J44.9 Chronic obstructive pulmonary disease, unspecified; Z79.4 Long term (current) use of insulin; S82.872A Displaced pilon fracture of left tibia, initial encounter for closed fracture; S82.142A Displaced bicondylar fracture of left tibia, initial encounter for closed fracture; W17.89XA Other fall from one level to another, initial encounter; S82.842A Displaced bimalleolar fracture of left lower leg, initial encounter for closed fracture; I25.10 Atherosclerotic heart disease of native coronary artery without angina pectoris; E87.6 Hypokalemia; J45.20 Mild intermittent asthma, uncomplicated; K44.9 Diaphragmatic hernia without obstruction or gangrene; E78.00 Pure hypercholesterolemia, unspecified; K29.80 Duodenitis without bleeding; K29.00 Acute gastritis without bleeding; I69.398 Other sequelae of cerebral infarction; S82.862A Displaced Maisonneuve's fracture of left leg, initial encounter for closed fracture; R11.2 Nausea with vomiting, unspecified; K22.89 Other specified disease of esophagus; K21.00 Gastro-esophageal reflux disease with esophagitis, without bleeding; Z79.84 Long term (current) use of oral hypoglycemic drugs; Z87.891 Personal history of nicotine dependence; R13.10 Dysphagia, unspecified; Z68.37 Body mass index [BMI] 37.0-37.9, adult; Z79.899 Other long term (current) drug therapy; Z79.51 Long term (current) use of inhaled steroids
CPT/HCPCS: 36415; 71045; 73560; 73610; 80048; 82962; 83735; 85025; 88305; 88342; 92526; 92610; 93005; 93306; 94640; 94668; 94762; 97162; 97166; 97530; 97535; 99284; J7120; Q9957; A4216; C1769; C8929; J1940; J2405

== ENCOUNTER 2023-12-27 17:02 | Inpatient (IN) | payer MEDICARE, MEDICAID, SELFPAY ==
[2023-12-27] VITALS (9 sets, daily range): BP systolic 113–128; BP diastolic 60–93; PULSE 71–89; RESP 18–30; TEMP 36.4–37.2; O2SAT 87–99; BMI 37.3; BMI 34.6
[2023-12-27] MEDS: Ondansetron 4 MG/2 ML Vial IV (17:31)
[2023-12-27 17:50] LABS: Absolute Lymphocyte Count 1.13 X10^3/uL (0.83-4.51); Absolute Neutrophil Count 22.6 X10^3/uL (2.0-7.7); Basophil# 0.04 X10^3/uL; Basophil% 0.2 % (0-1); Hematocrit 35.6 % (37-47); Hemoglobin 11.8 g/dL (12.0-15.0); Lymphocyte # 1.13 X10^3/ul (0.83-4.51); Lymphocyte % 4.3 % (19-41); Mean Corp Hgb Conc 33.1 g/dL (32-36); Mean Corpuscular Hgb 28.9 pg (27.0-32.0); Mean Platelet Vol. 10.5 fl (6.2-12.0); Monocyte# 2.31 X10^3/uL; Monocyte% 8.8 % (0-10); NRBC Flagged by Analyzer 0 % (0-5); Neutrophil # 22.64 X10^3/uL (2.7-7.7); Neutrophil % 86.3 % (47-70); POSITIVE DIFFERENTIAL YES; Platelet Count 326 K/mm3 (150-450); RBC Distribution Width CV 14.1 % (11.6-14.6); RBC Distribution Width SD 45.1 fl (35.1-43.9); Red Blood Count 4.09 M/mm3 (4.2-5.4); White Blood Count 26.2 K/mm3 (4.4-11.0)
[2023-12-27 17:52] LABS: Differential Indicated SCAN CRITERIA MET
--- NOTE | 2023-12-27 18:04 | RAD_ITS ---
INDICATION: DISTENTION,NAUSEA VOMITING EXAMINATION/TECHNIQUE: X-RAY - 5 views XR Abdomen Series W/ Chest 1 View COMPARISON: FINDINGS: --Chest: LINES/DEVICES: None. LUNGS: No consolidation, edema or effusion. Interstitial prominence. No pneumothorax. MEDIASTINUM AND CARDIOVASCULAR STRUCTURES: Cardiac silhouette not enlarged. Central airways and mediastinal contour are unremarkable. BONES AND SOFT TISSUES: No acute findings. Degenerative vertebral changes. --Abdomen: BOWEL GAS PATTERN: Non-obstructive. No bowel or stomach distention. Mild colonic fecal retention. FREE AIR: None visualized. ORGANOMEGALY: Not seen. CALCIFICATIONS: No abnormal calcifications observed. RAD/Acute Abdomen Inc Chest IMPRESSION: No sign of bowel obstruction. Mild colonic fecal retention. Electronically Signed: Cezar Webber DO at 19:06 EDT ,
[2023-12-27 18:14] LABS: ALB/GLOB Ratio 0.9 RATIO (0.9-2.4); AST(SGOT) 14 U/L (15-37); Alanine Aminotransfer ALT/SGPT 18 U/L (13-56); Albumin, Serum 3.2 g/dL (3.2-5.0); Alkaline Phosphatase 81 U/L (45-117); Anion Gap 8 (5-15); BUN 27 mg/dL (7-18); BUN/Creat Ratio 20.3 RATIO (10-20); Calcium,Total 9.3 mg/dL (8.5-10.1); Chloride 98 mmol/L (98-107); Creatinine, Serum 1.33 mg/dL (0.55-1.02); EST Glomerular Filtration Rate 40 mL/min (>60); Est Glom Filt Rate - Afr Amer 49 mL/min (>60); Estimated Creatinine Clearance 29.18 ml/min; Globulin 3.6 g/dL (2.2-4.2); Glucose 270 mg/dL (74-106); Potassium 4.6 mmol/L (3.5-5.1); Protein, Total 6.8 g/dL (6.4-8.2); Sodium Level 132 mmol/L (136-145)
--- NOTE | 2023-12-27 18:30 | CT_ITS ---
STUDY: CT ABDOMEN AND PELVIS WITH CONTRAST REASON FOR EXAM: Female, 88 years old. Distention, nausea and vomiting, WBC 26,000 RADIATION DOSAGE (If Supplied By Facility): CTDIvol = ( 18.12 ) mGy, DLP = ( 1155.58 ) mGycm TECHNIQUE: Transaxial images were obtained from the dome of the diaphragm to the symphysis pubis without oral contrast. IV 100mL Isovue-370 was administered. Sagittal and coronal images were reconstructed. Individualized dose optimization techniques were used for this CT. COMPARISON: None. FINDINGS: The visualized lung bases are unremarkable. The visualized portions of the heart are within normal limits. Normal liver. Distended gallbladder with cholelithiasis and edematous gallbladder wall/pericholecystic fluid. Mild pericholecystic mesenteric stranding. No significant dilatation of the extrahepatic biliary system. Normal spleen. Normal pancreas. Normal bilateral adrenal glands. Normal right kidney. Normal left kidney. Normal visualized stomach. Normal small intestine. Fecal retention in the colon with moderate distention of the rectum. The appendix is not visualized. Calcified abdominal aorta. Normal inferior vena cava. 2 cm node in the left retroperitoneum. Normal urinary bladder. Right adnexal 3.7 cm cystic lesion. Mild pelvic fluid. Normal abdominal wall. Normal osseous structures. CT/Abdomen/Pelvis W IV Cont ONLY IMPRESSION: Distended gallbladder with cholelithiasis and edematous gallbladder wall/pericholecystic fluid. Mild pericholecystic mesenteric stranding. Cholecystitis is suspected in the proper clinical settings. Fecal retention with distention of the rectum. Right adnexal cystic lesion. Mild pelvic flow. Left retroperitoneal prominent node. Electronically Signed: Cezar Webber DO at 19:35 EDT ,
--- NOTE | 2023-12-27 18:31 | EDS_ITS ---
HPI HPI - GI History of Present Illness Chief Complaint: Nausea/Vomiting Detail of Chief Complaint: Nausea and vomiting. EMS in transfer sheet. Left ankle pain per patient Informant: patient, spouse/S.O. and SNF Abdominal Pain/Flank Pain Onset: Today (Nausea and vomiting) Context: Sudden Onset Timing: Intermittent Quality: Aching Location: Epigastric Current Severity: Gone Maximum Severity: Moderate Worsened by: - (Uncertain. Patient is not a good informant) Relieved by: - (Uncertain) Nausea/Vomiting/Emesis GI Symptom: Positive for Nausea and Vomiting Onset: Today Quality: Negative for Nonbilious, Blood streaks, Coffee ground or Hematemesis Diarrhea/Melena/Hematochezia GI Symptom: Negative for Diarrhea, Melena or Hematochezia Associated Symptoms LMP: Not applicable Narrative Narrative: Patient is an 88-year-old woman who resides at a nursing facility. She was transferred from nursing facility from [facility] after sustaining a pilon fracture and bimalleolar fracture that was treated nonoperatively. She is not a good informant. Her chief complaint is ankle pain. She denied nausea or vomiting even though [facility]. states she has had problems with her memory for approximately 4 months. She She denies headache visual ocular auditory symptoms. She denies chest pain. She denies shortness of breath. She denies abdominal pain. Denies nausea or vomiting. She denies urologic symptoms. She does complain of ankle pain. Prior similar symptoms: No Recent Illness/Hospitalization: Yes PFSH PFSH Medical History Anxiety Asthma Chest pain CHF (congestive heart failure) COPD (chronic obstructive pulmonary disease) Coronary artery disease DVT (deep venous thrombosis) Former smoker HTN (hypertension) Osteoporosis Stroke/cerebrovascular accident Home Medications albuterol sulfate 90 mcg/actuation aerosol inhaler 2 puff inhalation Q6H PRN shortness of breath or wheezing 11/25/23 [History Last Taken Unknown] carvedilol 3.125 mg tablet 3.125 mg PO Q12H 11/25/23 [History Last Taken 12/27/23] enalapril maleate 20 mg tablet 20 mg PO Q12H 11/25/23 [History Last Taken 0 12/27/23] fluticasone 500 mcg-salmeterol 50 mcg/dose blistr powdr for inhalation 1 inh inhalation Q12H 11/25/23 [History Last Taken 11/24/23] furosemide 40 mg tablet 40 mg PO DAILY 11/25/23 [History Last Taken 12/27/23] multivitamin (Daily Multi-Vitamin tablet) 1 tab PO DAILY 11/25/23 [History Last Taken 12/27/23] nystatin 100,000 unit/gram topical cream 1 applic topical DAILY 11/25/23 [History Last Taken 12/27/23] omeprazole 40 mg capsule,delayed release 40 mg PO DAILY 11/25/23 [History Last Taken 11/24/23] aluminum-mag hydroxide-simethicone 400 mg-400 mg-40 mg/5 mL oral susp (Mag-Al Plus Extra Strength) 30 ml PO Q6H PRN PRN Gastric Burning #0 mL 11/29/23 [Rx Last Taken Unknown] heparin (porcine) 5,000 unit/mL injection solution 5,000 unit subcut Q12 #1 mL 11/29/23 [Rx Last Taken 12/27/23] insulin glargine-yfgn 100 unit/mL (3 mL) subcutaneous pen 10 unit (0.1 mL) subcut BREAKFAST #0 mL 11/29/23 [Rx Last Taken 12/27/23] insulin glargine-yfgn 100 unit/mL (3 mL) subcutaneous pen 10 unit (0.1 mL) subcut DINNER #0 mL 11/29/23 [Rx Last Taken 12/26/23] ondansetron HCl 8 mg tablet 8 mg PO Q6H PRN PRN nausea and vomiting #1 TAB 11/29/23 [Rx Last Taken 12/27/23] oxycodone 5 mg tablet 10 mg (2 x 5 mg) PO Q4H PRN PRN Pain Score 4-10 2 days #10 tabs 11/29/23 [Rx Last Taken 12/27/23] potassium chloride 20 mEq tablet,extended release(part/cryst) 20 meq PO BIDCM #0 tabs 11/29/23 [Rx Last Taken 12/27/23] sennosides 8.6 mg-docusate sodium 50 mg tablet (Stool Softener-Stimulant Laxative) 2 tab PO BID PRN PRN Constipation #0 tabs 11/29/23 [Rx Last Taken 12/27/23] atorvastatin 20 mg tablet 20 mg PO QHS 12/27/23 [History Last Taken 12/26/23] bisacodyl 10 mg rectal suppository 10 mg ND DAILY PRN constipation 12/27/23 [History Last Taken 12/26/23] Allergy/AdvReac Type Severity Reaction Status Date / Time acetaminophen [From Tylenol] Allergy Rash Verified 11/25/23 09:06 Penicillins Allergy Other Verified 11/25/23 09:06 Surgical History History of appendectomy Social History household members: spouse housing: senior living Smoking Status: Former smoker ROS ROS ED Review of Systems ROS Unobtainable: due to mental status EXAM Physical Exam Const Vital Signs: 12/27/23 17:06 12/27/23 17:06 12/27/23 19:03 Temperature 97.8 F 97.8 F Temperature Source Temporal Temporal Pulse Rate 89 79 Respiratory Rate 25 H 18 30 H Blood Pressure 113/77 113/77 122/63 H Blood Pressure Mean 89 89 82 Pulse Ox 93 93 91 Oxygen Delivery Method Room Air Room Air Room Air Oxygen Flow Rate (L/min) 12/27/23 20:55 Temperature Temperature Source Pulse Rate 76 Respiratory Rate 29 H Blood Pressure 125/72 H Blood Pressure Mean 89 Pulse Ox 98 Oxygen Delivery Method Nasal Cannula Oxygen Flow Rate (L/min) 2 Positive well nourished, well developed and obese General Appearance ED: well developed, NAD and pallor Nutritional Appearance: obese HEENT Reports TM's clear and dry mucous membranes normocephalic and atraumatic Tympanic Membrane ED: Yes TM's clear Mouth ED: Yes dry mucous membranes Mouth: dry mucous membranes Eyes PERRL and EOMs intact bilaterally General Eye ED: Negative for pale conjunctiva or scleral icterus Neck no lymphadenopathy, supple and no JVD Resp normal respiratory effort and clear to auscultation bilaterally Cardio regular rate, regular rhythm, S1 normal heart sound, S2 normal heart sound and no murmurs GI no masses; Negative for non-tender or non-distended GI Narrative: There is tympany to percussion. There is pain palpation the epigastric area. Inspection: abdominal distention Auscultation: hyperactive bowel sounds Palpation: soft and tender epigastric; Negative for guarding, rigid, hepatomegaly, splenomegaly, hernia, mass, pulsatile mass or rebound tenderness present Back/Spine no CVA tenderness Extremity full ROM General Extremety ED: Yes edema General Extremity: edema Neuro CN's II-XII intact bilaterally and moves all extremities Sensorium / Orientation: oriented to person and confused; Negative for alert or oriented to time Psych Mood & Affect: depressed Skin no wounds General Skin Exam: pallor; Negative for jaundice Lesions: no lesions Rashes: no rashes MDM MDM MDM Narrative Medical decision making narrative: Need to evaluate for metabolic or infectious cause. With patient having recent dilation of her esophagus due to achalasia and the fact that she is now nauseous with vomiting and distention prior abdominal surgery obtain x-ray to assess for notice of gas pattern versus obstructive pattern. White count was obtained to assess white count as well as differential. Renal function was obtained in the event that a CAT scan is needed. Lab Data Attestation: I reviewed the patient's lab results. Lab results narrative: White count is elevated 26.2 thousand with shift. There is no bandemia. She does have mild anemia with an H&H 11.8 and 35.6 with normal indices. Comprehensive metabolic panel is marked for BUN 27 creatinine 1.33 which is the patient's baseline. Glucose is elevated 270 with a normal CO2 anion gap. Transaminases, bilirubin and alkaline phosphatase are normal. Labs: Laboratory Results - last 24 hr 12/27/23 17:31 WBC 26.2 H RBC 4.09 L Hgb 11.8 L Hct 35.6 L MCV 87.0 MCH 28.9 MCHC 33.1 RDW Std Deviation 45.1 H RDW Coeff of Yasir 14.1 Plt Count 326 MPV 10.5 Immature Gran % (Auto) 0.400 Neut % (Auto) 86.3 H Lymph % (Auto) 4.3 L [place] % (Auto) 8.8 Eos % (Auto) 0.0 Baso % (Auto) 0.2 Absolute Neuts (auto) 22.6 H Absolute Lymphs (auto) 1.13 Nucleated RBC % 0 Differential Comment SCANNED Diff Path Review May foll Sodium 132 L Potassium 4.6 Chloride 98 Carbon Dioxide 26.0 Anion Gap 8 BUN 27 H Creatinine 1.33 H Estim Creat Clear Calc 29.18 Est GFR (MDRD) Af Amer 49 L Est GFR (MDRD) Non-Af 40 L BUN/Creatinine Ratio 20.3 H Glucose 270 H Calcium 9.3 Total Bilirubin 0.90 AST 14 L ALT 18 Alkaline Phosphatase 81 Total Protein 6.8 Albumin 3.2 Globulin 3.6 Albumin/Globulin Ratio 0.9 Radiography Chest X-Ray - ED: Read by ED Physician (Three-view x-ray of the abdomen reveals no severe gas pattern with slight increase in fecal matter. Chest portion is unremarkable. There is no evidence of pneumo peritoneum. This was then plan reviewed interpreted by me at 06/03/2029.) Diagnostic Testing: Clinical Impression(s) from Imaging Studies Acute Abdomen Series 12/27/23 18:04 IMPRESSION: No sign of bowel obstruction. Mild colonic fecal retention. Electronically Signed: Cezar Webber DO at 19:06 EDT , Abdomen/Pelvis CT 12/27/23 18:30 IMPRESSION: Distended gallbladder with cholelithiasis and edematous gallbladder wall/pericholecystic fluid. Mild pericholecystic mesenteric stranding. Cholecystitis is suspected in the proper clinical settings. Fecal retention with distention of the rectum. Right adnexal cystic lesion. Mild pelvic flow. Left retroperitoneal prominent node. Electronically Signed: Cezar Webber DO at 19:35 EDT , Management Discussion w/another healthcare provider: Hospitalist and [facility] Specialist (Dr. Herrera saw patient. She declined surgery. She preferred to be treated with a 2. He is requesting that patient be admitted to medicine. He will contact Dr. Newsome. I will page him as well.) Treatment and Re-Evaluation :: With a white count of 26.2 thousand abdominal distention nonseptic x-ray of the abdomen will obtain CT. CT reveals evidence of acute cholecystitis. Patient is not on an oral anticoagulant. She is on heparin. Subcu heparin can be reversed with protamine if needed. Because of her white count being elevated she was treated with meropenem. She is not oriented to tell me what her reaction is.. Will have surgeon on-call Dr. Javier burgos. Discharge Plan Dx/Rx/DC Orders Clinical Impression: Acute calculous cholecystitis, Bimalleolar fracture of left ankle, Tibial plateau fracture, left, Nausea & vomiting, Sepsis with acute organ dysfunction without septic shock, Current use of anticoagulant therapy Disposition Disposition: Acute Care Hospital [facility]
[2023-12-27 18:37] LABS: Differential Comment SCANNED
[2023-12-27] MEDS: VIAFLEX IV (18:44)
[2023-12-27] MEDS: NORMAL SALINE IV (18:44)
--- NOTE | 2023-12-27 20:00 | US_ITS ---
INDICATION: Cholelithiasis on CAT scan, need to evaluate the c EXAMINATION: Ultrasound US Abdomen RUQ (limited) TECHNIQUE: Luong-scale and color Doppler imaging was performed of the abdomen. COMPARISON: FINDINGS: LIVER: There is normal echotexture measuring 20.6 cm. No focal hepatic lesion. No intrahepatic biliary ductal dilatation. There is no free fluid. GALLBLADDER AND BILIARY TREE: Moderately distended gallbladder with cholelithiasis and mild sludge. No pericholecystic fluid. Gallbladder wall thickening is demonstrated measuring 6 mm. The proximal common bile duct measures 7, which is borderline in size. SONOGRAPHIC TRAORE''S SIGN: Positive. PANCREAS: Limited visualization of the pancreas. No pancreatic ductal dilatation. RIGHT KIDNEY: 10.0 x 3.9 x 4.5 cm. The cortex is 15 mm. There is no hydronephrosis. No shadowing calculus, focal lesion, or perinephric collection is demonstrated. VESSELS: Submitted longitudinal images of the intra-abdominal aorta demonstrate no gross abnormalities and are unremarkable. The IVC is patent. US/Gallbladder IMPRESSION: Moderately distended gallbladder with cholelithiasis and sludge. There is wall thickening of the gallbladder. Positive sonographic Traore''s sign. Electronically Signed: Cezar Webber DO at 21:56 EDT Reading Location ID and State: [facility] / [place] Tel [phone], Service support ,
--- NOTE | 2023-12-27 20:44 | HP.PCM.HOS_ITS ---
[facility] - General General Date of Admission: 12/27/23 Date of Service: 12/27/23 Chief Complaint: Nausea and Vomiting. HPI Narrative JEANNETTE AMOS, is a 88 F with a past medical history of essential hypertension, hyperlipidemia, obesity; with BMI of 37.4 this admission, DM-2; of unknown control, CAD, history of DVT, history of CHF, chronic Left hemiparesis; with patient non-ambulatory for the past three years, poor memory for the past ~4 mon ths, history of tobacco abuse; with subsequent asthma/COPD, history of ventral hernia; s/p repair with mesh, history of open appendectomy, GERD; with recent history of esophageal dilation due to achalasia, osteoporosis, OA and recent history of a tibial plateau/bimalleolar fracture; being treated non-operatively with patient currently residing at [facility] who presents to [facility] ER complaining of nausea and vomiting. Mrs. Amos is not a fully-reliable historian at this time so information was gathered from chart, medical staff and computer. According to the records she began to have nausea and vomiting earlier today with intermittent abdominal pain focused in the epigastrium and RUQ. There is no report of fever, hypotension or other significant complaint other than ankle pain which is chronic. In the ER her CT scan of the abdomen and pelvis was positive for a distended gallbladder with cholelithiasis and pericholecystic fluid consistent with Acute Calculous Cholecystitis along with fecal retention with distention of the rectum complicated by severe leukocytosis of 26.2 present on admission complicated by clinical evidence of acute delirium in the setting of suspected chronic dementia with remote CVA and residual Left hemiparesis with the hospitalist service asked to admit and help to medically optimize this very high surgical risk patient with recommendation made to pursue cholecystostomy drain at with CT scan of the head pending to confirm evidence of previous CVA. She was then admitted to the general medical floor for ongoing care for a stay that is expected to be greater than 48 hours. [facility] Medical History Anxiety Asthma Chest pain CHF (congestive heart failure) COPD (chronic obstructive pulmonary disease) Coronary artery disease DVT (deep venous thrombosis) Former smoker HTN (hypertension) Osteoporosis Stroke/cerebrovascular accident Home Medications albuterol sulfate 90 mcg/actuation aerosol inhaler 2 puff inhalation Q6H PRN shortness of breath or wheezing 11/25/23 [History Last Taken Unknown] carvedilol 3.125 mg tablet 3.125 mg PO Q12H 11/25/23 [History Last Taken 12/27/23] enalapril maleate 20 mg tablet 20 mg PO Q12H 11/25/23 [History Last Taken 12/26] fluticasone 500 mcg-salmeterol 50 mcg/dose blistr powdr for inhalation 1 inh inhalation Q12H 11/25/23 [History Last Taken 11/24/23] furosemide 40 mg tablet 40 mg PO DAILY 11/25/23 [History Last Taken 12/27/23] multivitamin (Daily Multi-Vitamin tablet) 1 tab PO DAILY 11/25/23 [History Last Taken 12/27/23] nystatin 100,000 unit/gram topical cream 1 applic topical DAILY 11/25/23 [History Last Taken 12/27/23] omeprazole 40 mg capsule,delayed release 40 mg PO DAILY 11/25/23 [History Last Taken 11/24/23] aluminum-mag hydroxide-simethicone 400 mg-400 mg-40 mg/5 mL oral susp (Mag-Al Plus Extra Strength) 30 ml PO Q6H PRN PRN Gastric Burning #0 mL 11/29/23 [Rx Last Taken Unknown] heparin (porcine) 5,000 unit/mL injection solution 5,000 unit subcut Q12 #1 mL 11/29/23 [Rx Last Taken 12/27/23] insulin glargine-yfgn 100 unit/mL (3 mL) subcutaneous pen 10 unit (0.1 mL) subcut BREAKFAST #0 mL 11/29/23 [Rx Last Taken 12/27/23] insulin glargine-yfgn 100 unit/mL (3 mL) subcutaneous pen 10 unit (0.1 mL) subcut DINNER #0 mL 11/29/23 [Rx Last Taken 12/26/23] ondansetron HCl 8 mg tablet 8 mg PO Q6H PRN PRN nausea and vomiting #1 TAB 11/29/23 [Rx Last Taken 12/27/23] oxycodone 5 mg tablet 10 mg (2 x 5 mg) PO Q4H PRN PRN Pain Score 4-10 2 days #10 tabs 11/29/23 [Rx Last Taken 12/27/23] potassium chloride 20 mEq tablet,extended release(part/cryst) 20 meq PO BIDCM #0 tabs 11/29/23 [Rx Last Taken 12/27/23] sennosides 8.6 mg-docusate sodium 50 mg tablet (Stool Softener-Stimulant Laxative) 2 tab PO BID PRN PRN Constipation #0 tabs 11/29/23 [Rx Last Taken 12/27/23] atorvastatin 20 mg tablet 20 mg PO QHS 12/27/23 [History Last Taken 12/26/23] bisacodyl 10 mg rectal suppository 10 mg GA DAILY PRN constipation 12/27/23 [History Last Taken 12/26/23] Allergy/AdvReac Type Severity Reaction Status Date / Time acetaminophen [From Tylenol] Allergy Rash Verified 11/25/23 09:06 Penicillins Allergy Other Verified 11/25/23 09:06 Surgical History History of appendectomy Social History household members: spouse housing: custodial Smoking Status: Former smoker ROS ROS Narrative Full ROS was not possible due to patient's acute delirium in the setting of likely chronic dementia. Review of Systems ROS Unobtainable: due to encephalopathy Vital Signs Vital Signs Vital Signs: 12/27/23 17:06 12/27/23 17:06 12/27/23 19:03 Temperature 97.8 F 97.8 F Temperature Source Temporal Temporal Pulse Rate 89 79 Respiratory Rate 25 H 18 30 H Blood Pressure 113/77 113/77 122/63 H Blood Pressure Mean 89 89 82 Pulse Ox 93 93 91 Oxygen Delivery Method Room Air Room Air Room Air Weight Weight: 191 lb 5.78 oz Body Mass Index (BMI) 37.3 Physical Exam Const alert Constitutional Narrative: Severely obese. Orientation / Consciousness: confused HEENT normocephalic, head/scalp atraumatic and hearing grossly normal bilaterally HEENT Narrative: Mucous membranes dry. Eyes PERRL and EOMs intact bilaterally Neck no lymphadenopathy Resp normal respiratory effort, no retractions and no use of accessory muscles Cardio regular rate and regular rhythm GI GI Narrative: RUQ TTP with positive Traore's sign. Extremity no clubbing, cyanosis or edema Skin Skin Narrative: Patient has no evidence of rash. Neuro CN's II-XII intact bilaterally Sensorium / Orientation: awake, alert and oriented to person Speech: speech normal Psych affect normal Results Medical Records Data Attestation: I reviewed the patient's medical records Lab / Micro Data Attestation: I reviewed the patient's lab results. 12/27/23 17:31 12/27/23 17:31 Labs: Laboratory Results - last 24 hr 12/27/23 17:31: WBC 26.2 H, RBC 4.09 L, Hgb 11.8 L, Hct 35.6 L, MCV 87.0, MCH 2 8.9, MCHC 33.1, RDW Std Deviation 45.1 H, RDW Coeff of Yasir 14.1, Plt Count 326, MPV 10.5, Immature Gran % (Auto) 0.400, Neut % (Auto) 86.3 H, Lymph % (Auto) 4.3 L, Dillingham % (Auto) 8.8, Eos % (Auto) 0.0, Baso % (Auto) 0.2, Absolute Neuts (auto) 22.6 H, Absolute Lymphs (auto) 1.13, Nucleated RBC % 0, Differential Comment SCANNED, Diff Path Review February, Sodium 132 L, Potassium 4.6, Chloride 98, Carbon Dioxide 26.0, Anion Gap 8, BUN 27 H, Creatinine 1.33 H, Estim Creat Clear Calc 29.18, Est GFR (MDRD) Af Amer 49 L, Est GFR (MDRD) Non-Af 40 L, BUN/Creatinine Ratio 20.3 H, Glucose 270 H, Calcium 9.3, Total Bilirubin 0.90, AST 14 L, ALT 18, Alkaline Phosphatase 81, Total Protein 6.8, Albumin 3.2, Globulin 3.6, Albumin/Globulin Ratio 0.9 Imaging Radiology Impression Acute Abdomen Series 12/27/23 18:04 IMPRESSION: No sign of bowel obstruction. Mild colonic fecal retention. Electronically Signed: Cezar Webber DO at 19:06 EDT , Abdomen/Pelvis CT 12/27/23 18:30 IMPRESSION: Distended gallbladder with cholelithiasis and edematous gallbladder wall/pericholecystic fluid. Mild pericholecystic mesenteric stranding. Cholecystitis is suspected in the proper clinical settings. Fecal retention with distention of the rectum. Right adnexal cystic lesion. Mild pelvic flow. Left retroperitoneal prominent node. Electronically Signed: Cezar Webber DO at 19:35 EDT , [facility] Imaging Services [address] [place] [id number] Brain/Head without Contrast MR#: [id number] Acct: [id number] Name: JEANNETTE AMOS Rep #: [id number] : 1935 F 88 From: Cezar Webber DO PCP: Dr. Kirby Dukes DO Status: ADM IN Study: Brain/Head without Contrast Date of Exam: 12/27/23 Exam# [id number] Ordering Dr: Stevan Quijano DO STUDY: CT BRAIN WITHOUT CONTRAST REASON FOR EXAM: Female, 88 years old. Altered Mental Status RADIATION DOSAGE (If Supplied By Facility): CTDIvol = ( 44.99 ) mGy, DLP = ( 748.30 ) mGycm TECHNIQUE: Transaxial CT imaging of the brain was performed without administration of intravenous contrast material. Individualized dose optimization techniques were used for this CT. COMPARISON: No relevant priors. FINDINGS: Normal soft tissue structures. Normal calvarium. Prominent ventricles and extra-axial spaces with atrophy. Old right occipital infarct. Bilateral white matter microangiopathy ischemic changes of the cerebral hemispheres. Old lacunar infarct in the right basal ganglia. Normal thalami. Normal brainstem. Normal cerebellum. There is no intracranial hemorrhage. There are no findings of an acute ischemic infarction. Normal visualized paranasal sinuses. Possible right otitis media and right mastoiditis. CT/Brain/Head without Contrast IMPRESSION: Old right occipital infarct and age-related changes of the brain. Electronically Signed: Cezar Webber DO at 23:17 EDT Reading Location ID and State: [facility] / [place] Tel [phone], Service support , CC: Dr. Stevan Quijano, DO; Dr. Kirby Dukes DO ~ Retort Operator: Signed Assessment & Plan Assessment/Plan (1) Acute calculous cholecystitis: (2) Nausea & vomiting: QUALIFIERS: Vomiting type: unspecified Qualified Code(s): R11.2 - Nausea with vomiting, unspecified (3) Altered mental status: QUALIFIERS: Altered mental status type: transient alteration of awareness Qualified Code(s): R40.4 - Transient alteration of awareness (4) Tibial plateau fracture, left: QUALIFIERS: Encounter type: subsequent encounter Fracture healing: with delayed healing Fracture type: closed Qualified Code(s): S82.142G - Displaced bicondylar fracture of left tibia, subsequent encounter for closed fracture with delayed healing (5) Fracture of left tibial plafond with involvement of fibula: QUALIFIERS: Encounter type: initial encounter Fracture type: closed Qualified Code(s): S82.872A - Displaced pilon fracture of left tibia, initial encounter for closed fracture; S82.832A - Other fracture of upper and lower end of left fibula, initial encounter for closed fracture (6) Bimalleolar fracture of left ankle: QUALIFIERS: Encounter type: initial encounter Fracture type: closed Qualified Code(s): S82.842A - Displaced bimalleolar fracture of left lower leg, initial encounter for closed fracture PLAN: Plan 1. Acute Calculous Cholecystitis along with fecal retention with distention of the rectum complicated by severe leukocytosis of 26.2 present on admission - Admit to general medical floor. Continue broad-spectrum antibiotics and await culture and sensitivity data. Patient refusing surgery so we will refer to IR for cholecystostomy drain placement this admission with help appreciated in advance. 2. Intractable Nausea and Vomiting attributable to #1 - Give IV Zofran prn nausea/vomiting and place on aspiration precautions. 3. Acute delirium in the setting of suspected chronic dementia with remote CVA and residual Left hemiparesis with patient non-ambulatory for the past ~3 years and confused for the past ~4 months compounding #1 & #2 - Checked CT scan of the head to confirm suspicion of old CVA with evidence of old Right occipital CVA. Check TSH, B12 and Folate levels to evaluate for potentially reversible causes of confusion. Minimize TAX MANAGER CPA-active medications. Otherwise continue supportive care and monitor for improvement. 4. Recent history of a tibial plateau/bimalleolar fracture; being treated non- operatively with patient currently residing at [facility] and non-ambulatory at baseline - Stable. PT/OT and Case Management to consult and treat on-rounds in the AM with help appreciated in advance. 5. Essential hypertension - Hold scheduled antihypertensives in light of #1. Give IV Hydralazine prn for systolic blood pressure > 160 mm Hg. 6. Hyperlipidemia - Resume statin when patient can reliably tolerate oral intake. 7. Obesity; with BMI of 37.4 this admission - Weight loss will be recommended. 8. DM-2; of unknown control - Keep NPO for now. FSBS q. 6 hours plus lowest intensity SSI. Check HgbA1c. 9. CAD - Stable. Serialize troponin. 10. History of DVT - Noted. 11. History of CHF - Stable. 12. History of tobacco abuse; with subsequent asthma/COPD - Stable and without evidence of acute flare. Give nebulizers prn. 13. History of ventral hernia; s/p repair with mesh - Noted. 14. History of open appendectomy - Noted. 15. GERD; with recent history of esophageal dilation due to achalasia - Stable. Continue PPI IV. 16. Osteoporosis - Stable. 17. OA - Noted. 18. DVT prophylaxis - Heparin 5,000 units sq TID. Total time: Approximately 55 minutes. Charges/Coding Visit Charges Inpatient E&M: 71345 Init Hosp L2
--- NOTE | 2023-12-27 20:44 | PCM.HP.STD ---
[facility] - General General Date of Service: 12/27/23 Chief Complaint: Nausea and vomiting HPI Narrative JEANNETTE PATEL, is a 88 F who presents to [facility] from [facility] where she is recovering from a tibial plateau fracture undergoing nonoperative management. She presents today with her . He states that his has experienced nausea and vomiting for the last 2 to 3 months. He shares that he initially reported this to providers last month during her admission and workup for her lower extremity fracture and this resulted in an upper endoscopy investigation with Dr. Land of gastroenterology. Mr. Guevara shares that he was never told the results firsthand but thereafter learned that his likely had a hiatal hernia. He shares that today's presentation is occasioned by recurrent vomiting at mealtime at her nursing facility. He also shares that she has complained of her stomach hurting for the last 4 to 5 months. He was unable to get greater detail because he shares that his has been confused for roughly that same time. He has a difficult time truly assessing what she understands and what she has lost memory for. In addition to her confusion he reports that his has intermittently been requiring supplemental oxygen and she is requiring it at today's visit. Beyond the above changes Mr. Guevara reports that his is nonambulatory and the last time she walked was at least 3 years ago. He states her left side is like she had a stroke and that she has weakness of both her left upper extremity as well as her left lower extremity. He has been trying to use mobility aids to maneuver her at home but after her fracture she became too much for him to handle. Patient's ER workup was notable for CBC with leukocytosis of greater than 26,000. CT imaging of the abdomen pelvis is performed showing a distended and edematous gallbladder suggestive of cholecystitis with a gallstone located in the gallbladder infundibulum. Additional findings include significant fecal impaction of the rectum. Patient's surgical history includes section, oophorectomy, ventral hernia repair with mesh, and open appendectomy. [facility] Medical History Anxiety Asthma Chest pain CHF (congestive heart failure) COPD (chronic obstructive pulmonary disease) Coronary artery disease DVT (deep venous thrombosis) Former smoker HTN (hypertension) Osteoporosis Stroke/cerebrovascular accident Home Medications albuterol sulfate 90 mcg/actuation aerosol inhaler 2 puff inhalation Q6H PRN shortness of breath or wheezing 11/25/23 [History Last Taken Unknown] carvedilol 3.125 mg tablet 3.125 mg PO Q12H 11/25/23 [History Last Taken 12/27/23] enalapril maleate 20 mg tablet 20 mg PO Q12H 11/25/23 [History Last Taken 12/27/23] fluticasone 500 mcg-salmeterol 50 mcg/dose blistr powdr for inhalation 1 inh inhalation Q12H 11/25/23 [History Last Taken 11/24/23] furosemide 40 mg tablet 40 mg PO DAILY 11/25/23 [History Last Taken 12/27/23] multivitamin (Daily Multi-Vitamin tablet) 1 tab PO DAILY 11/25/23 [History Last Taken 12/27/23] nystatin 100,000 unit/gram topical cream 1 applic topical DAILY 11/25/23 [History Last Taken 12/27/23] omeprazole 40 mg capsule,delayed release 40 mg PO DAILY 11/25/23 [History Last Taken 11/24/23] aluminum-mag hydroxide-simethicone 400 mg-400 mg-40 mg/5 mL oral susp (Mag-Al Plus Extra Strength) 30 ml PO Q6H PRN PRN Gastric Burning #0 mL 11/29/23 [Rx Last Taken Unknown] heparin (porcine) 5,000 unit/mL injection solution 5,000 unit subcut Q12 #1 mL 11/29/23 [Rx Last Taken 12/27/23] insulin glargine-yfgn 100 unit/mL (3 mL) subcutaneous pen 10 unit (0.1 mL) subcut BREAKFAST #0 mL 11/29/23 [Rx Last Taken 12/27/23] insulin glargine-yfgn 100 unit/mL (3 mL) subcutaneous pen 10 unit (0.1 mL) subcut DINNER #0 mL 11/29/23 [Rx Last Taken 12/26/23] ondansetron HCl 8 mg tablet 8 mg PO Q6H PRN PRN nausea and vomiting #1 TAB 11/29/23 [Rx Last Taken 12/27/23] oxycodone 5 mg tablet 10 mg (2 x 5 mg) PO Q4H PRN PRN Pain Score 4-10 2 days #10 tabs 11/29/23 [Rx Last Taken 12/27/23] potassium chloride 20 mEq tablet,extended release(part/cryst) 20 meq PO BIDCM #0 tabs 11/29/23 [Rx Last Taken 12/27/23] sennosides 8.6 mg-docusate sodium 50 mg tablet (Stool Softener-Stimulant Laxative) 2 tab PO BID PRN PRN Constipation #0 tabs 11/29/23 [Rx Last Taken 12/27/23] atorvastatin 20 mg tablet 20 mg PO QHS 12/27/23 [History Last Taken 12/26/23] bisacodyl 10 mg rectal suppository 10 mg DE DAILY PRN constipation 12/27/23 [History Last Taken 12/26/23] Allergy/AdvReac Type Severity Reaction Status Date / Time acetaminophen [From Tylenol] Allergy Rash Verified 11/25/23 09:06 Penicillins Allergy Other Verified 11/25/23 09:06 Surgical History History of appendectomy Social History (Updated 12/27/23 @ 19:[address] Abhay Miller MD) household members: spouse housing: half-way Smoking Status: Former smoker Vital Signs Vital Signs Vital Signs: 12/27/23 17:06 12/27/23 17:06 12/27/23 19:03 Temperature 97.8 F 97.8 F Temperature Source Temporal Temporal Pulse Rate 89 79 Respiratory Rate 25 H 18 30 H Blood Pressure 113/77 113/77 122/63 H Blood Pressure Mean 89 89 82 Pulse Ox 93 93 91 Oxygen Delivery Method Room Air Room Air Room Air Weight Weight: 191 lb 5.78 oz Body Mass Index (BMI) 37.3 Physical Exam Const alert Constitutional Narrative: Oriented to person and place Resp Resp Narrative: Tachypneic and breathy with responses GI GI Narrative: Distended with bruising across much of the abdomen, midline laparotomy scar (with some visible suture spitting), lower Pfannenstiel scar, Gabriel-Nikolas incision in the right lower quadrant all well-healed. Right upper quadrant tenderness with positive Traore sign Inspection: abdominal distention Palpation: tender Results Lab / Micro Data 12/27/23 17:31 12/27/23 17:31 Labs: Laboratory Results - last 24 hr 12/27/23 17:31: WBC 26.2 H, RBC 4.09 L, Hgb 11.8 L, Hct 35.6 L, MCV 87.0, MCH 28.9, MCHC 33.1, RDW Std Deviation 45.1 H, RDW Coeff of Yasir 14.1, Plt Count 326, MPV 10.5, Immature Gran % (Auto) 0.400, Neut % (Auto) 86.3 H, Lymph % (Auto) 4.3 L, Young % (Auto) 8.8, Eos % (Auto) 0.0, Baso % (Auto) 0.2, Absolute Neuts (auto) 22.6 H, Absolute Lymphs (auto) 1.13, Nucleated RBC % 0, Differential Comment SCANNED, Diff Path Review February, Sodium 132 L, Potassium 4.6, Chloride 98, Carbon Dioxide 26.0, Anion Gap 8, BUN 27 H, Creatinine 1.33 H, Estim Creat Clear Calc 29.18, Est GFR (MDRD) Af Amer 49 L, Est GFR (MDRD) Non-Af 40 L, BUN/Creatinine Ratio 20.3 H, Glucose 270 H, Calcium 9.3, Total Bilirubin 0.90, AST 14 L, ALT 18, Alkaline Phosphatase 81, Total Protein 6.8, Albumin 3.2, Globulin 3.6, Albumin/Globulin Ratio 0.9 Imaging Radiology Impression Acute Abdomen Series 12/27/23 18:04 IMPRESSION: No sign of bowel obstruction. Mild colonic fecal retention. Electronically Signed: Cezar Webber DO at 19:06 EDT , Abdomen/Pelvis CT 12/27/23 18:30 IMPRESSION: Distended gallbladder with cholelithiasis and edematous gallbladder wall/pericholecystic fluid. Mild pericholecystic mesenteric stranding. Cholecystitis is suspected in the proper clinical settings. Fecal retention with distention of the rectum. Right adnexal cystic lesion. Mild pelvic flow. Left retroperitoneal prominent node. Electronically Signed: Cezar Webber DO at 19:35 EDT , Assessment & Plan Assessment/Plan (1) Acute calculous cholecystitis: PLAN: Patient is an 88-year-old female with multiple comorbidities currently recovering from the orthopedic injury of her lower extremity who presents with signs and symptoms of acute calculus cholecystitis. I held a lengthy conversation with both her and her regarding her history, her diagnosis, and proposed treatment options. Based on her frailty and numerous comorbidities I find her a rather prohibitive operative candidate and it is my recommendation that she consider percutaneous cholecystostomy. Prior to my independent evaluation I applied patient's metrics to the new prescription surgical risk calculator and found her to be at least a 17% risk for serious complication following surgery and over an 87% rate of functional decline. These are likely underestimates as patient's history detailed further systemic this function than initially anticipated. After explaining the risks and benefits of both treatment options is patient's wish to avoid surgery and proceed with cholecystostomy as recommended. For the interim would recommend admission with IV antibiotic therapy and n.p.o. past midnight. Patient is now pending a formal ultrasound in addition to her CAT scan imaging to better evaluate her biliary tree. Additionally, patient presents with signs of fecal impaction and recommend a bowel regimen to begin to address this latter issue as well. Will continue to follow. Charges/Coding Visit Charges Inpatient E&M: 15622 Subs Hosp L2
[2023-12-27] MEDS: Meropenem 1 GM in 0.9% Normal Saline (100mL MB+) 100 ML IV (20:48)
--- NOTE | 2023-12-27 22:06 | CT_ITS ---
STUDY: CT BRAIN WITHOUT CONTRAST REASON FOR EXAM: Female, 88 years old. Altered Mental Status RADIATION DOSAGE (If Supplied By Facility): CTDIvol = ( 44.99 ) mGy, DLP = ( 748.30 ) mGycm TECHNIQUE: Transaxial CT imaging of the brain was performed without administration of intravenous contrast material. Individualized dose optimization techniques were used for this CT. COMPARISON: No relevant priors. FINDINGS: Normal soft tissue structures. Normal calvarium. Prominent ventricles and extra-axial spaces with atrophy. Old right occipital infarct. Bilateral white matter microangiopathy ischemic changes of the cerebral hemispheres. Old lacunar infarct in the right basal ganglia. Normal thalami. Normal brainstem. Normal cerebellum. There is no intracranial hemorrhage. There are no findings of an acute ischemic infarction. Normal visualized paranasal sinuses. Possible right otitis media and right mastoiditis. CT/Brain/Head without Contrast IMPRESSION: Old right occipital infarct and age-related changes of the brain. Electronically Signed: Cezar Webber DO at 23:17 EDT ,
[2023-12-27] MEDS: 0.9% Saline Lock 10 ML Syringe IV (23:09)
[2023-12-27] MEDS: Heparin Injection (Vial) 5,000 UNIT/ML VIAL 5000 UNIT SC (23:09)
[2023-12-27 23:10] LABS: Hemoglobin A1c 7.4 % (3.8-5.6)
[2023-12-27] MEDS: Insulin Lispro 100 UNIT/ML INSULN.PEN SC (23:12)
[2023-12-27] MEDS: 0.9% Normal Saline (1000mL) 1,000 ML 75 ML IV (23:18)
[2023-12-28] VITALS (65 sets, daily range): BP systolic 72–159; BP diastolic 25–81; PULSE 74–107; RESP 14–32; TEMP 36.2–37.1; O2SAT 89–100; BMI 34.8
[2023-12-28 00:50] LABS: Bedside Glucose 199 mg/dL (74-106)
--- NOTE | 2023-12-28 06:00 | EKG12_ITS ---
Test Reason : AM EKG Blood Pressure : / mmHG Vent. Rate : 085 BPM Atrial Rate : 085 BPM P-R Int : 206 ms QRS Dur : 140 ms QT Int : 394 ms P-R-T Axes : 080 -63 077 degrees QTc Int : 468 ms Sinus rhythm with occasional Premature ventricular complexes Left bundle branch block Abnormal ECG When compared with ECG of 25-NOV-2023 10:23, Premature ventricular complexes are now Present Aberrant conduction is no longer Present Confirmed by BERRY GARCIA, QUYNH ([id number]), editor producer CASSANDRA DIAZ ([id number]) on 12/29/2023 6:28:24 AM Referred By: ELEANOR Confirmed By:QUYNH SMART MD
[2023-12-28] MEDS: Insulin Lispro 100 UNIT/ML INSULN.PEN SC ×2 (06:29→20:35)
[2023-12-28] MEDS: Heparin Injection (Vial) 5,000 UNIT/ML VIAL 5000 UNIT SC ×2 (06:29→20:31)
[2023-12-28] MEDS: Budesonide Respules 0.5 MG/2 ML AMPUL.NEB. INHALATION ×2 (07:19→19:12)
[2023-12-28] MEDS: Albuterol 2.5 MG/3 ML VIAL.NEB. INHALATION ×3 (07:20→19:12)
[2023-12-28 07:32] LABS: Absolute Lymphocyte Count 1.06 X10^3/uL (0.83-4.51); Absolute Neutrophil Count 24.7 X10^3/uL (2.0-7.7); Basophil# 0.06 X10^3/uL; Basophil% 0.2 % (0-1); Hematocrit 32.8 % (37-47); Hemoglobin 10.8 g/dL (12.0-15.0); Lymphocyte # 1.06 X10^3/ul (0.83-4.51); Lymphocyte % 3.8 % (19-41); Mean Corp Hgb Conc 32.9 g/dL (32-36); Mean Corpuscular Hgb 28.8 pg (27.0-32.0); Mean Corpuscular Volume 87.5 fL (81-99); Mean Platelet Vol. 10.5 fl (6.2-12.0); Monocyte% 7.1 % (0-10); NRBC Flagged by Analyzer 0 % (0-5); Neutrophil # 24.73 X10^3/uL (2.7-7.7); Neutrophil % 87.9 % (47-70); POSITIVE DIFFERENTIAL YES; Platelet Count 270 K/mm3 (150-450); RBC Distribution Width CV 14.5 % (11.6-14.6); RBC Distribution Width SD 46.5 fl (35.1-43.9); Red Blood Count 3.75 M/mm3 (4.2-5.4); White Blood Count 28.1 K/mm3 (4.4-11.0)
[2023-12-28 07:38] LABS: Differential Indicated SCAN CRITERIA MET
[2023-12-28 07:51] LABS: Bedside Glucose 186 mg/dL (74-106)
--- NOTE | 2023-12-28 08:05 | PN.SURG_ITS ---
Subjective Subjective Patient seen and examined during AM rounds. She is found resting in bed. She reports that her abdominal pain is not necessarily better than yesterday. She has been held n.p.o. since midnight for possible procedure today. Objective Data Objective Data Vital Signs: Vital Signs Temp Pulse Resp BP Pulse Ox O2 Del Method O2 Flow Rate 98.7 F 85 18 130/70 H 99 Nasal Cannula 2 12/28/23 04:27 12/28/23 05:57 12/28/23 04:27 12/28/23 04:27 12/28/23 05:57 12/28/23 05:57 12/28/23 05:57 Oxygen Flow Rate (L/min) 2 Oxygen Delivery Method Nasal Cannula Weight: 177 lb 7.554 oz Body Mass Index (BMI) 34.8 Intake & Output: Intake and Output for Last 24 Hours 12/26/23 12/27/23 12/28/23 23:59 23:59 23:59 Intake Total 260 / 260 120 / 120 Output Total 300 / 300 Balance 260 / 260 -180 / -180 Lab / Micro Data 12/28/23 07:10 12/28/23 07:10 Labs: Laboratory Results - last 24 hr 12/27/23 17:31: WBC 26.2 H, RBC 4.09 L, Hgb 11.8 L, Hct 35.6 L, MCV 87.0, MCH 28.9, MCHC 33.1, RDW Std Deviation 45.1 H, RDW Coeff of Yasir 14.1, Plt Count 326, MPV 10.5, Immature Gran % (Auto) 0.400, Neut % (Auto) 86.3 H, Lymph % (Auto) 4.3 L, Forest % (Auto) 8.8, Eos % (Auto) 0.0, Baso % (Auto) 0.2, Absolute Neuts (auto) 22.6 H, Absolute Lymphs (auto) 1.13, Nucleated RBC % 0, Differential Comment SCANNED, Diff Path Review February, Sodium 132 L, Potassium 4.6, Chloride 98, Carbon Dioxide 26.0, Anion Gap 8, BUN 27 H, Creatinine 1.33 H, Estim Creat Clear Calc 29.18, Est GFR (MDRD) Af Amer 49 L, Est GFR (MDRD) Non-Af 40 L, BUN/Creati nine Ratio 20.3 H, Glucose 270 H, Hemoglobin A1c 7.4 H, Calcium 9.3, Total Bilirubin 0.90, AST 14 L, ALT 18, Alkaline Phosphatase 81, Total Protein 6.8, Albumin 3.2, Globulin 3.6, Albumin/Globulin Ratio 0.9, Folate 28.50 12/27/23 23:07: POC Glucose 199 H 12/28/23 06:27: POC Glucose 186 H 12/28/23 07:10: WBC 28.1 H, RBC 3.75 L, Hgb 10.8 L, Hct 32.8 L, MCV 87.5, MCH 28.8, MCHC 32.9, RDW Std Deviation 46.5 H, RDW Coeff of Yasir 14.5, Plt Count 270, MPV 10.5, Immature Gran % (Auto) 1.000 H, Neut % (Auto) 87.9 H, Lymph % (Auto) 3.8 L, Forest % (Auto) 7.1, Eos % (Auto) 0.0, Baso % (Auto) 0.2, Absolute Neuts (auto) 24.7 H, Absolute Lymphs (auto) 1.06, Nucleated RBC % 0 Radiography Diagnostic Testing: Radiology Impression Acute Abdomen Series 12/27/23 18:04 IMPRESSION: No sign of bowel obstruction. Mild colonic fecal retention. Electronically Signed: Cezar Webber DO at 19:06 EDT , Abdomen/Pelvis CT 12/27/23 18:30 IMPRESSION: Distended gallbladder with cholelithiasis and edematous gallbladder wall/pericholecystic fluid. Mild pericholecystic mesenteric stranding. Cholecystitis is suspected in the proper clinical settings. Fecal retention with distention of the rectum. Right adnexal cystic lesion. Mild pelvic flow. Left retroperitoneal prominent node. Electronically Signed: Cezar Webber DO at 19:35 EDT , Gallbladder Ultrasound 12/27/23 20:00 IMPRESSION: Moderately distended gallbladder with cholelithiasis and sludge. There is wall thickening of the gallbladder. Positive sonographic Traore''s sign. 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 Electronically Signed: Cezar Webber DO at 23:17 EDT , Physical Exam Const Constitutional Narrative: Patient is oriented to person, place, and time but she does not immediately provide her attention when questioned GI GI Narrative: Patient's abdomen remains modestly distended, soft, and tender to palpation in the right upper quadrant with positive Traore sign. Assessment & Plan Assessment/Plan (1) Acute calculous cholecystitis: PLAN: Patient is hospital day 2 for admission for acute cholecystitis. She was admitted overnight with complaints of months of abdominal pain, nausea, and vomiting. Patient is both elderly and frail from many years of being nonambulatory/experiencing declining neurologic status as well as a recent orthopedic injury for which she is undergoing nonoperative management. Additionally she has a rather complex past surgical history inclusive of at least 4 significant open operations. Taken together, patient is a very high risk surgical candidate and I thus discussed nonoperative management with percutaneous cholecystostomy tube. Upon this discussion of procedural risks and treatment recommendations patient and her readily excepted recommendation to proceed with cholecystostomy tube. Radiology consult is pending. PT/INR was obtained this morning to confirm patient's appropriateness for procedure. Will continue to follow to manage this issue. In the meantime, as stated in consultation, recommend ongoing bowel regimen given significant fecal impaction seen on CT imaging. Charges/Coding Visit Charges Inpatient E&M: 17824 Subs Hosp L2
[2023-12-28 08:09] LABS: Vitamin B12 415 pg/mL (211-911)
--- NOTE | 2023-12-28 08:43 | PCM.PN.HOSP ---
Reason for Visit Reason for Visit: Nausea and vomiting Subjective Subjective Patient is an 88-year-old white female who presented to the emergency department at [facility] from [facility] where she was recovering from a tibial plateau fracture undergoing nonoperative management. Her presented to the emergency department with her and reported that his had been experiencing some nausea and vomiting for about 2 to 3 months intermittently. She had an EGD done on 12/01/2023 that showed abnormal esophageal motility that was suspicious for achalasia and dilation was performed, acute gastritis and acute duodenitis. Biopsies were taken and pathology is consistent with inflammation of the gastric body and focal villous blunting and mild nonspecific chronic inflammation in the duodenum. H. pylori was negative. He reported that her recurrent vomiting typically occurs at mealtime while she has been at the nursing facility and she is complained of some stomach pain for about 4 to 5 months. Greater detail has been difficult as she has some dementia with memory loss. She has been nonambulatory for about 3 years and reports that she has some left-sided weakness in the upper and lower extremity which has chronically been a problem. She had been trying to use mobility aids at home to maneuver her but after her fracture she became too much for him to handle and went to the nursing facility. Vital signs on presentation showed a temperature of 97.8, blood pressure was 113/77, respiratory was 25 and oxygen saturations were 93% on room air however her oxygen has required up titration to 2.5 L due to worsening oxygen saturations. CBC showed a leukocytosis with a white count of 26.8, anemia with a hemoglobin of 11.8, and a left shift with an 86.3% neutrophilia. Her chemistry panel showed hyponatremia with a sodium of 132, elevated serum creatinine at 1.33 which appears to be her baseline and hyperglycemia with a blood sugar of 270. We did obtain a hemoglobin A1c of 7.4 so her acute elevation of glucose is likely related to acute stress from illness. Her liver functions and bilirubin were normal. Alk phos was normal. B12 and folate were unremarkable. Acute abdominal series was unremarkable other than showing some mild colonic fecal retention. CT of the abdomen pelvis showed a distended gallbladder with cholelithiasis and an edematous gallbladder wall/pericholecystic fluid and mild pericholestatic mesenteric stranding with suspected cholecystitis, fecal retention in the rectum and a left retroperitoneal prominent lymph node. Gallbladder ultrasound was then obtained and demonstrated a moderately distended gallbladder with cholelithiasis and sludge as well as gallbladder thickening and a positive sonographic Traore sign. CT of the brain shows an old right occipital infarct and age-related changes but was otherwise unremarkable for any acute findings. Diagnosis is acute calculus cholecystitis and she was seen by general surgery who recommended percutaneous cholecystostomy tube in interventional radiology. Patient is confused and lying flat in bed. No nausea or vomiting recently. Does complain of right upper quadrant pain on abdominal examination. has not yet arrived. Objective Data Objective Data Vital Signs: Vital Signs Temp Pulse Resp BP Pulse Ox O2 Del Method O2 Flow Rate 98.7 F 85 18 130/70 H 99 Nasal Cannula 2 12/28/23 04:27 12/28/23 05:57 12/28/23 04:27 12/28/23 04:27 12/28/23 05:57 12/28/23 05:57 12/28/23 05:57 Oxygen Flow Rate (L/min) 2 Oxygen Delivery Method Nasal Cannula Weight: 80.5 kg Body Mass Index (BMI) 34.8 Intake & Output: Intake and Output for Last 24 Hours 12/26/23 12/27/23 12/28/23 23:59 23:59 23:59 Intake Total 260 / 260 120 / 120 Output Total 300 / 300 Balance 260 / 260 -180 / -180 Lab / Micro Data 12/28/23 07:10 12/28/23 07:10 Labs: Laboratory Results - last 24 hr 12/27/23 17:31: WBC 26.2 H, RBC 4.09 L, Hgb 11.8 L, Hct 35.6 L, MCV 87.0, MCH 28.9, MCHC 33.1, RDW Std Deviation 45.1 H, RDW Coeff of Yasir 14.1, Plt Count 326, MPV 10.5, Immature Gran % (Auto) 0.400, Neut % (Auto) 86.3 H, Lymph % (Auto) 4.3 L, Robeson % (Auto) 8.8, Eos % (Auto) 0.0, Baso % (Auto) 0.2, Absolute Neuts (auto) 22.6 H, Absolute Lymphs (auto) 1.13, Nucleated RBC % 0, Differential Comment SCANNED, Diff Path Review February, Sodium 132 L, Potassium 4.6, Chloride 98, Carbon Dioxide 26.0, Anion Gap 8, BUN 27 H, Creatinine 1.33 H, Estim Creat Clear Calc 29.18, Est GFR (MDRD) Af Amer 49 L, Est GFR (MDRD) Non-Af 40 L, BUN/Creatinine Ratio 20.3 H, Glucose 270 H, Hemoglobin A1c 7.4 H, Calcium 9.3, Total Bilirubin 0.90, AST 14 L, ALT 18, Alkaline Phosphatase 81, Total Protein 6.8, Albumin 3.2, Globulin 3.6, Albumin/Globulin Ratio 0.9, Folate 28.50 12/27/23 23:07: POC Glucose 199 H 12/28/23 06:27: POC Glucose 186 H 12/28/23 07:10: WBC 28.1 H, RBC 3.75 L, Hgb 10.8 L, Hct 32.8 L, MCV 87.5, MCH 28.8, MCHC 32.9, RDW Std Deviation 46.5 H, RDW Coeff of Yasir 14.5, Plt Count 270, MPV 10.5, Immature Gran % (Auto) 1.000 H, Neut % (Auto) 87.9 H, Lymph % (Auto) 3.8 L, Robeson % (Auto) 7.1, Eos % (Auto) 0.0, Baso % (Auto) 0.2, Absolute Neuts (auto) 24.7 H, Absolute Lymphs (auto) 1.06, Nucleated RBC % 0, Diff Path Review May foll, Vitamin B12 415 Radiography Diagnostic Testing: Radiology Impression Acute Abdomen Series 12/27/23 18:04 IMPRESSION: No sign of bowel obstruction. Mild colonic fecal retention. Electronically Signed: Cezar Webber DO at 19:06 EDT Reading Location ID and State: [facility] / [place] Tel [phone], Service support , Abdomen/Pelvis CT 12/27/23 18:30 IMPRESSION: Distended gallbladder with cholelithiasis and edematous gallbladder wall/pericholecystic fluid. Mild pericholecystic mesenteric stranding. Cholecystitis is suspected in the proper clinical settings. Fecal retention with distention of the rectum. Right adnexal cystic lesion. Mild pelvic flow. Left retroperitoneal prominent node. Electronically Signed: Cezar Webber DO at 19:35 EDT , Gallbladder Ultrasound 12/27/23 20:00 IMPRESSION: Moderately distended gallbladder with cholelithiasis and sludge. There is wall thickening of the gallbladder. Positive sonographic Traore''s sign. 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 Electronically Signed: Cezar Webber DO at 23:17 EDT , Physical Exam Const alert and no apparent distress; Negative for average body habitus or healthy appearing Constitutional Narrative: Obese, elderly, white female, lying flat in bed, currently appears comfortable, confused, nontoxic, chronically ill-appearing HEENT head/scalp atraumatic HEENT Narrative: Dentition is poor, Mallampati is 3, no thrush Head and Scalp: normocephalic Resp normal respiratory effort, no retractions, no use of accessory muscles and clear to auscultation bilaterally Resp Narrative: Diminished at bases bilaterally Auscultation: Negative for rales, rhonchi or wheezes Cardio regular rate, regular rhythm, S1 normal heart sound, S2 normal heart sound, no murmurs, no rub, no gallops and no clicks GI normal to inspection, nondistended, normoactive bowel sounds and soft to palpation GI Narrative: Tenderness on right upper quadrant palpation Extremity no clubbing, cyanosis or edema Extremity Narrative: Pedal pulses are 2+, radial pulses are 2+ Neuro Neuro Narrative: Patient with focalized weakness on left side both upper and lower extremity Sensorium / Orientation: awake, alert and oriented to person Speech: speech normal Psych Psych Narrative: Affect is flat Assessment & Plan Assessment/Plan (1) Acute calculous cholecystitis: (2) Altered mental status: QUALIFIERS: Altered mental status type: transient alteration of awareness Qualified Code(s): R40.4 - Transient alteration of awareness (3) Leukocytosis: (4) Tibial plateau fracture, left: QUALIFIERS: Encounter type: subsequent encounter Fracture healing: with delayed healing Fracture type: closed Qualified Code(s): S82.142G - Displaced bicondylar fracture of left tibia, subsequent encounter for closed fracture with delayed healing (5) Nausea & vomiting: QUALIFIERS: Vomiting type: unspecified Qualified Code(s): R11.2 - Nausea with vomiting, unspecified (6) Dysphagia: PLAN: Plan Acute calculus cholecystitis with nausea and vomiting -Continue meropenem -PERC Shruti tube is pending and IR -Continue IV fluids but decrease rate to 50 cc/h -As needed pain medication -As needed antiemetics -N.p.o. 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 once able Toxic/metabolic encephalopathy on chronic dementia -Likely related to the above -Suspect possible vascular dementia with previous strokes -CT of the brain does showed old infarct -TSH is pending -B12 and folate are unremarkable -Will add low-dose risperidone at night to help with sundowning and agitation Anemia chronic normocytic -Mild and appears to be chronic and stable at this time -Continue to monitor Constipation -Continue ordered bowel regimen DM-2 -Fairly well-controlled with a hemoglobin A1c of 7.4 on admission -Acute elevation is likely related to acute illness -Continue 6 units of basal insulin -SSI every 6 for now -Accu-Cheks as ordered HTN/HPL/CAD -Hold home atorvastatin -Continue home carvedilol -Hold home enalapril -Hold home Lasix Debility/nonambulatory at baseline/tibial plateau fracture -PT/OT consultation for bed mobility -Will likely need placement again at discharge CKD stage IIIb -Serum creatinine appears to be stable -Will continue to hold Lasix for now -Gentle hydration as patient is n.p.o. -Avoid nephrotoxins as able -Continue to monitor Obesity -BMI 37.7 -Recommend weight loss -Complicates treatment, prognosis, outcomes DVT prophylaxis -Continue subcu heparin CODE STATUS -Listed as full code but unverified -Will have to have further discussion with patient/family is overall goals of care seem more consistent with DNR CCA--> patient is not able to make this decision had not yet arrived at the bedside will discuss when he arrives Charges/Coding Visit Charges Inpatient E&M: 06526 Subs Hosp L2
--- NOTE | 2023-12-28 08:50 | WOUNDNOTE ---
wound photo: sacrum
[2023-12-28 08:55] LABS: ALB/GLOB Ratio 0.7 RATIO (0.9-2.4); AST(SGOT) 10 U/L (15-37); Alanine Aminotransfer ALT/SGPT 15 U/L (13-56); Albumin, Serum 2.6 g/dL (3.2-5.0); Alkaline Phosphatase 74 U/L (45-117); Anion Gap 10 (5-15); BUN 25 mg/dL (7-18); BUN/Creat Ratio 20.3 RATIO (10-20); Calcium,Total 8.7 mg/dL (8.5-10.1); Chloride 102 mmol/L (98-107); Creatinine, Serum 1.23 mg/dL (0.55-1.02); EST Glomerular Filtration Rate 44 mL/min (>60); Est Glom Filt Rate - Afr Amer 53 mL/min (>60); Estimated Creatinine Clearance 30.27 ml/min; Globulin 3.5 g/dL (2.2-4.2); Glucose 188 mg/dL (74-106); Magnesium 1.6 mg/dL (1.6-2.6); Phosphorus 3.6 mg/dL (2.5-4.9); Potassium 3.9 mmol/L (3.5-5.1); Protein, Total 6.1 g/dL (6.4-8.2); Sodium Level 136 mmol/L (136-145); Thyroid Stim Hormone (TSH) 1.19 uIU/mL (0.358-3.74)
[2023-12-28 09:30] LABS: International Normalized Ratio 1.4; Prothrombin Time (Protime)PT. 16.7 SECONDS (11.7-14.9)
[2023-12-28] MEDS: Pantoprazole Sodium 40 MG in 0.9% Normal Saline (100mL MB+) 100 ML 330 MG IV (09:53)
[2023-12-28] MEDS: Meropenem 1 GM in 0.9% Normal Saline (100mL MB+) 100 ML IV ×2 (09:56→20:31)
[2023-12-28] MEDS: 0.9% Normal Saline (250mL Bag) 250 ML 15 ML IV (11:20)
[2023-12-28] MEDS: Midazolam 2 MG/2 ML Syringe IV ×2 (11:24→11:42)
[2023-12-28] MEDS: fentaNYL 100 MCG/2 ML Ampul IV ×2 (11:27→11:41)
[2023-12-28] MEDS: Lidocaine 2% (20 ml mdv) 20 ML Vial INFILT (11:32)
--- NOTE | 2023-12-28 12:00 | PCM.OP.PRO ---
Procedure Report Date of Procedure: 12/28/23 Assessment & Plan Assessment/Plan (1) Acute calculous cholecystitis: PLAN: PROCEDURE: CT DIRECTED PERCUTANEOUS CHOLECYSTOSTOMY DRAINAGE, PERITONEAL ORDERING PROVIDER: Didi Almaraz PA-C INDICATION: Female, 88 years old. Cholecystitis. PROVIDER: ONDINA Matta CONSENT: Written informed consent was obtained having explained the risks, benefits and alternatives in detail with the patient's POA, her , who accepted the risks and agreed to proceed. Laboratory review and clinical assessment was performed. The patient's last dose of subcutaneous heparin was 12/28/23 0629. SIR Guidelines recommend a 4 hour hold time prior to a high bleeding risk procedure, and a hold time of 8 hours following. Procedure start time was 1124. Hold order has been entered. PRE-PROCEDURE SEDATION ASSESSMENT: Current history and physical dictated by referring physician and reviewed. No clinical changes since date of exam. Patient has an ASA Class of 3. PROCEDURAL SEDATION PROTOCOL: The Drugs used were: 2 mg Versed, IV, and 50 mcg Fentanyl, IV. The sedation time was: 26 minutes, starting at 1124 and terminated at 1150. The procedural sedation protocol was independently monitored by the department nurse. RADIATION DOSAGE (If Supplied By Facility): CTDIvol = 19.79 mGy, DLP = 1059.37 mGycm Individualized dose optimization techniques were used for this CT. CONSENT: Written informed consent was obtained having explained the risks, benefits and alternatives in detail with the patient who accepted the risks and agreed to proceed. Laboratory review and clinical assessment was performed. TECHNIQUE: CT sections were made through the abdomen and pelvis revealing acute cholecystitis and dilated gallbladder. The skin surface was prepped with betadine and draped in a sterile fashion. Puncture of this collection was performed with a 5 Argentine catheter and brown fluid began to drain. Placement was confirmed with image documentation. The drainage catheter was then inserted into the collection and formed into position by the pigtail fastener. Additional fluid was aspirated for a total of approximately 130 ml of viscous, dark brown colored fluid. A Iglesia-Henry drain was attached to the catheter, and the catheter was secured with a StayFIX dress to allow for continued drainage. Followup CT sections reveals good position of the catheter. IMPRESSION: 1. CT directed drainage of dilated gallbladder with drain placement using CT image guidance and image documentation as described. 2. Procedural Sedation protocol utilized with independent monitoring by the department nurse. Procedures Radiology Radiology US Procedures: Other Procedure See Report (Percutaneous Cholecystostomy Tube Placement 09349)
[2023-12-28] MEDS: fentaNYL 100 MCG/2 ML Ampul 25 MCG IV (12:08)
--- NOTE | 2023-12-28 12:14 | CASEMGMT ---
Discharge Planning Updates sent via [facility] to [facility]. Frances Gómez, Discharge Planning Asst.
[2023-12-28] MEDS: Naloxone 0.4 MG/ML Syringe IV (12:38)
--- NOTE | 2023-12-28 12:40 | CT_ITS ---
STUDY: CT ABDOMEN AND PELVIS WITHOUT CONTRAST REASON FOR EXAM: Female, 88 years old. Percutaneous cholecystostomy. RADIATION DOSAGE (If Supplied By Facility): CTDIvol = ( 20.59 ) mGy, DLP = ( 1188.46 ) mGycm TECHNIQUE: Transaxial images were obtained from the dome of the diaphragm to the symphysis pubis without oral contrast, and without intravenous contrast. Sagittal and coronal images were reconstructed. Individualized dose optimization techniques were used for this CT. COMPARISON: None. FINDINGS: Under direct CT guidance, a percutaneous cholecystostomy catheter was placed. Solitary gallstone. CT/Abdomen/Pelvis without Cont IMPRESSION: Successful percutaneous cholecystostomy. Electronically Signed: Edgardo Lennon MD at 13:04 EDT ,
[2023-12-28] MEDS: 0.9% Normal Saline (1000mL) 1,000 ML 999 ML IV ×3 (13:30→16:18)
[2023-12-28 14:00] LABS: Allen Test Positive; Base Excess -6 mmol/L (-2 to +2); Bicarbonate 18.9 mmol/L (22-26); Blood Gas Specimen Type ART; Mode Not entered; O2 Delivery Device Cannula; PO2 77 mmHG (75-100); SITE R Radial; SO2 95 % (95-99); Total Carbon Dioxide 20 mmol/L; pCO2 32.4 mmHg (35-45); pH 7.37 (7.35-7.45)
[2023-12-28 14:20] LABS: Absolute Lymphocyte Count 0.14 X10^3/uL (0.83-4.51); Absolute Neutrophil Count 10.9 X10^3/uL (2.0-7.7); Basophil# 0.04 X10^3/uL; Basophil% 0.4 % (0-1); Hematocrit 34.4 % (37-47); Hemoglobin 10.7 g/dL (12.0-15.0); Lymphocyte # 0.14 X10^3/ul (0.83-4.51); Lymphocyte % 1.2 % (19-41); Mean Corp Hgb Conc 31.1 g/dL (32-36); Mean Corpuscular Hgb 28.1 pg (27.0-32.0); Mean Corpuscular Volume 90.3 fL (81-99); Mean Platelet Vol. 10.4 fl (6.2-12.0); Monocyte# 0.07 X10^3/uL; Monocyte% 0.6 % (0-10); NRBC Flagged by Analyzer 0 % (0-5); Neutrophil # 10.91 X10^3/uL (2.7-7.7); Neutrophil % 97.2 % (47-70); POSITIVE DIFFERENTIAL YES; POSITIVE MORPHOLOGY YES; Platelet Count 235 K/mm3 (150-450); RBC Distribution Width CV 14.6 % (11.6-14.6); RBC Distribution Width SD 48.1 fl (35.1-43.9); Red Blood Count 3.81 M/mm3 (4.2-5.4); White Blood Count 11.2 K/mm3 (4.4-11.0)
[2023-12-28 14:23] LABS: Differential Indicated SCAN CRITERIA MET
--- NOTE | 2023-12-28 14:25 | NURSING ---
At approx 1222 KETAN Chaney consulted [facility] for pt becoming tachycardic and having snoring respirations. Pt's left hand was clenched. [facility] orders Narcan (see MAR) and CT imaging.
--- NOTE | 2023-12-28 14:31 | CASEMGMT ---
Social Work Pt is admitted from [facility]. They are able to accept pt back and pt was at the facility under her Medicare Skilled Benefit. Pt is out of room today at procedure. SW will followup with pt and family tomorrow to confirm plans to return to [facility]. LIONEL Galvan
[2023-12-28 14:45] LABS: ALB/GLOB Ratio 0.7 RATIO (0.9-2.4); AST(SGOT) 16 U/L (15-37); Alanine Aminotransfer ALT/SGPT 18 U/L (13-56); Albumin, Serum 2.4 g/dL (3.2-5.0); Alkaline Phosphatase 148 U/L (45-117); Anion Gap 10 (5-15); BUN 25 mg/dL (7-18); BUN/Creat Ratio 15.7 RATIO (10-20); Calcium,Total 8.3 mg/dL (8.5-10.1); Chloride 105 mmol/L (98-107); Creatinine, Serum 1.59 mg/dL (0.55-1.02); EST Glomerular Filtration Rate 33 mL/min (>60); Est Glom Filt Rate - Afr Amer 40 mL/min (>60); Estimated Creatinine Clearance 23.41 ml/min; Globulin 3.4 g/dL (2.2-4.2); Glucose 185 mg/dL (74-106); Protein, Total 5.8 g/dL (6.4-8.2); Sodium Level 137 mmol/L (136-145)
[2023-12-28 15:08] LABS: Lactic Acid 3.9 mmol/L (0.4-1.9)
--- NOTE | 2023-12-28 15:12 | PCM.HOSP.N ---
Hospitalist Note Percutaneous colostomy tube was placed and the patient decompensated following having hypotension, increased lethargy and she developed an elevated lactic acidosis. She was given IV fluids bolus at 30 cc/kg of actual body weight. She is already receiving IV antibiotics and this will continue. I suspect seeding after drain placement due to infected gallbladder. We will cycle her lactate and see how she responds IV fluids if she has not fluid responsive hypotension she will likely need pressors. Will hold home blood pressure medicine. and daughter were at the bedside and updated. When I arrived, the was giving her water despite being told no to do so by the nursing staff. I explained to the daughter and that I am concerned that she is aspirating and that is why she is probably fluctuating with her O2 requirements at the assisted. I also discussed the resultant sepsis after the perc beto drain placement and the overall POC. Code status was discussed and explained what would occur in the event of a respiratory or cardiac arrest and that with her being very sick, her overall chronic medical conditions, and her severe debility she is at risk for this to happen and they elected to make her a DNR CCA without intubation. The order was placed. Sepsis Attestation Sepsis Alert: Yes Sepsis Attestation: Agree w/Sepsis Date exam was performed: 12/28/23 Time exam was performed: 13:45 Possible Source of Sepsis: GI tract/intra-abdominal Sepsis Organ Dysfunction Criteria Present: SBP < 90 mmHg or MAP < 65 mmHg, Lactic Acid > 2 mmol/L and New/Unexplained change in mental status Fluid Resuscitation Fluid resuscitation indicated?: Yes Fluid Resuscitation ordered: 30 ml/kg fluid bolus ordered Amount of fluid ordered: 2,500
[2023-12-28 15:32] LABS: Differential Comment SCANNED
[2023-12-28 16:18] LABS: Bedside Glucose 142 mg/dL (74-106)
[2023-12-28] MEDS: Lactulose 20 GM/30 ML UDC 10 GM PO (16:31)
--- NOTE | 2023-12-28 16:40 | NURSING ---
All documentation by Samina SHARIF reviewed by nursing scheduler Joellen Gabriel RN
[2023-12-28 18:17] LABS: Reflex Lactate? Y
--- NOTE | 2023-12-28 18:33 | PCM.HOSP.N ---
Sepsis Attestation Sepsis Note Date exam was performed: 12/28/23 Time exam was performed: 18:33 Sepsis Attestation: Sepsis re-evaluation was performed Response to fluids: Non Fluid responsive hypotension and Vasopressors started (levophed)
[2023-12-28] MEDS: Norepinephrine 8 MG in 0.9% Normal Saline (250mL Bag) 242 ML 9.4 MG CONT INF (18:34)
[2023-12-28 19:50] LABS: Lactic Acid 3.8 mmol/L (0.4-1.9)
[2023-12-28] MEDS: Menthol/Lanolin/Calamine/Znox 113 GM Tube 1 APPLIC TOPICAL (20:31)
[2023-12-28 20:56] LABS: Bedside Glucose 185 mg/dL (74-106)
[2023-12-29] VITALS (46 sets, daily range): BP systolic 81–132; BP diastolic 38–76; PULSE 63–86; RESP 16–25; TEMP 36.6–37.8; O2SAT 92–100; BMI 37.0
[2023-12-29 04:34] LABS: Absolute Neutrophil Count 22.5 X10^3/uL (2.0-7.7); Basophil# 0.07 X10^3/uL; Basophil% 0.3 % (0-1); Eosinophils% 0.8 % (0-5); Hematocrit 30.8 % (37-47); Hemoglobin 9.7 g/dL (12.0-15.0); Lymphocyte % 3.2 % (19-41); Mean Corp Hgb Conc 31.5 g/dL (32-36); Mean Corpuscular Hgb 28.5 pg (27.0-32.0); Mean Corpuscular Volume 90.6 fL (81-99); Mean Platelet Vol. 10.4 fl (6.2-12.0); Monocyte# 1.29 X10^3/uL; Monocyte% 5.1 % (0-10); NRBC Flagged by Analyzer 0 % (0-5); Neutrophil # 22.45 X10^3/uL (2.7-7.7); Neutrophil % 89.2 % (47-70); POSITIVE DIFFERENTIAL YES; Platelet Count 233 K/mm3 (150-450); RBC Distribution Width CV 14.6 % (11.6-14.6); RBC Distribution Width SD 49.1 fl (35.1-43.9); White Blood Count 25.2 K/mm3 (4.4-11.0)
[2023-12-29 04:40] LABS: Differential Indicated SCAN CRITERIA MET
[2023-12-29 04:52] LABS: ALB/GLOB Ratio 0.7 RATIO (0.9-2.4); AST(SGOT) 21 U/L (15-37); Alanine Aminotransfer ALT/SGPT 21 U/L (13-56); Albumin, Serum 2.3 g/dL (3.2-5.0); Alkaline Phosphatase 100 U/L (45-117); Anion Gap 10 (5-15); BUN 33 mg/dL (7-18); BUN/Creat Ratio 16.9 RATIO (10-20); Calcium,Total 8.1 mg/dL (8.5-10.1); Chloride 109 mmol/L (98-107); Creatinine, Serum 1.95 mg/dL (0.55-1.02); EST Glomerular Filtration Rate 26 mL/min (>60); Est Glom Filt Rate - Afr Amer 31 mL/min (>60); Estimated Creatinine Clearance 19.09 ml/min; Globulin 3.4 g/dL (2.2-4.2); Glucose 198 mg/dL (74-106); Magnesium 1.5 mg/dL (1.6-2.6); Phosphorus 4.7 mg/dL (2.5-4.9); Potassium 3.5 mmol/L (3.5-5.1); Protein, Total 5.7 g/dL (6.4-8.2); Sodium Level 141 mmol/L (136-145)
[2023-12-29] MEDS: Magnesium Sulfate 4gm/100mL 4 GM/100 ML IV.SOLN. IV (05:55)
[2023-12-29] MEDS: Heparin Injection (Vial) 5,000 UNIT/ML VIAL 5000 UNIT SC ×3 (05:55→20:13)
--- NOTE | 2023-12-29 06:42 | CON.PCM.CC_ITS ---
Assessment & Plan Assessment/Plan (1) Acute calculous cholecystitis: (2) Altered mental status: QUALIFIERS: Altered mental status type: transient alteration of awareness Qualified Code(s): R40.4 - Transient alteration of awareness (3) Septic shock: PLAN: Plan RECOMMENDATIONS: 1. Continue empiric antibiotics pending cultures 2. Wean oxygen and pressors as tolerated 3. Swallow evaluation 4. Encourage pulmonary recruitment such as incentive spirometer IMPRESSIONS: 1. Septic shock secondary to acute calculus cholecystitis Cultures are currently pending. Clinical suspicion for bacteremia following drain placement. Patient has stabilized at this time. Patient is on appropriate antibiotics. Surgery has been involved, but patient reportedly has refused any surgical interventions. Continue pain medications as necessary. 2. Chronic hypoxic respiratory insufficiency Unclear etiology. Patient does have some dementia, so atelectasis may be an issue. Patient also recently diagnosed with achalasia and this could be leading to mild aspiration. Patient appears to be stable on 2 L/min at this time. Given goals of therapy, it is unclear if patient would require an extensive outpatient workup, but this can be discussed once patient stabilizes. 3. Toxic/metabolic encephalopathy on chronic dementia Workup is currently pending. Patient does have a slightly decreased magnesium that will be replaced. Patient does have chronic kidney disease increasing risk for toxic metabolites. Patient does have previous strokes, so vascular dementia would also be a concern. 4. Diabetes mellitus type 2/hypertension/hyperlipidemia/CAD/debility/recent falls/fracture/CKD stage IIIb Complicates care, management, recovery and prognosis. Blood sugars are adequate at this time. Antihypertensives have been held secondary to problem #1. Conservative therapy for fractures will be continued. HPI Consult Data Date of Consult: 12/29/23 HPI Narrative HPI Narrative: JEANNETTE PATEL is an 88 F, with past medical history listed below, who presents to [facility] on 12/27/2023 secondary to nausea and vomiting. Patient reportedly resides in a nursing facility after sustaining a pilon and bimalleolar fracture that was treated conservatively. Patient reportedly has issues with memory and was not able to provide much additional history. Per ER report, patient was transported by nursing facility secondary to nausea and vomiting. In the ER, patient was afebrile and tolerating room air. Patient was normotensive at 113/77. Laboratory data showed a white blood cell count of 26.2, hemoglobin of 11.8 and platelets of 326. Patient did have a left shift noted. Chemistry showed a bicarbonate of 26, creatinine of 1.3 and a glucose of 270. Liver enzymes were relatively normal. An x-ray of the abdomen showed mild fecal retention. A subsequent CT of the abdomen showed a distended gallbladder that was edematous with pericolic fluid and stranding. There was discussion a bout going for cholecystectomy, but patient refused surgery. Patient was admitted to the [facility] unit for further evaluation. Yesterday on [facility], patient had a cholecystostomy tube placed and had significant hypotension following the procedure, so she was transferred to the intensive care unit for further evaluation. Patient has been on pressors for the majority of her time in the intensive care unit, but this is improving. Patient is a very poor informant and not able to provide much additional information. Patient is reporting a dry mouth. Nursing had reported that there was some concerns about her swallow. Patient is not reporting significant nausea or vomiting, but does have abdominal pain. Review of systems was limited secondary to patient's baseline mental status. Patient does wake up easily, but then falls asleep [facility] Medical History Anemia Anxiety Asthma Chest pain CHF (congestive heart failure) COPD (chronic obstructive pulmonary disease) Coronary artery disease DVT (deep venous thrombosis) Former smoker HTN (hypertension) Osteoporosis Stroke/cerebrovascular accident Home Medications albuterol sulfate 90 mcg/actuation aerosol inhaler 2 puff inhalation Q6H PRN shortness of breath or wheezing 11/25/23 [History Last Taken Unknown] carvedilol 3.125 mg tablet 3.125 mg PO Q12H 11/25/23 [History Last Taken 12/27/23] enalapril maleate 20 mg tablet 20 mg PO Q12H 11/25/23 [History Last Taken 12/27/23] fluticasone 500 mcg-salmeterol 50 mcg/dose blistr powdr for inhalation 1 inh inhalation Q12H 11/25/23 [History Last Taken 11/24/23] furosemide 40 mg tablet 40 mg PO DAILY 11/25/23 [History Last Taken 12/27/23] multivitamin (Daily Multi-Vitamin tablet) 1 tab PO DAILY 11/25/23 [History Last Taken 12/27/23] nystatin 100,000 unit/gram topical cream 1 applic topical DAILY 11/25/23 [History Last Taken 12/27/23] omeprazole 40 mg capsule,delayed release 40 mg PO DAILY 11/25/23 [History Last Taken 11/24/23] aluminum-mag hydroxide-simethicone 400 mg-400 mg-40 mg/5 mL oral susp (Mag-Al Plus Extra Strength) 30 ml PO Q6H PRN PRN Gastric Burning #0 mL 11/29/23 [Rx Last Taken Unknown] heparin (porcine) 5,000 unit/mL injection solution 5,000 unit subcut Q12 #1 mL 11/29/23 [Rx Last Taken 12/27/23] insulin glargine-yfgn 100 unit/mL (3 mL) subcutaneous pen 10 unit (0.1 mL) subcut BREAKFAST #0 mL 11/29/23 [Rx Last Taken 12/27/23] insulin glargine-yfgn 100 unit/mL (3 mL) subcutaneous pen 10 unit (0.1 mL) subcut DINNER #0 mL 11/29/23 [Rx Last Taken 12/26/23] ondansetron HCl 8 mg tablet 8 mg PO Q6H PRN PRN nausea and vomiting #1 TAB 11/29/23 [Rx Last Taken 12/27/23] oxycodone 5 mg tablet 10 mg (2 x 5 mg) PO Q4H PRN PRN Pain Score 4-10 2 days #10 tabs 11/29/23 [Rx Last Taken 12/27/23] potassium chloride 20 mEq tablet,extended release(part/cryst) 20 meq PO BIDCM #0 tabs 11/29/23 [Rx Last Taken 12/27/23] sennosides 8.6 mg-docusate sodium 50 mg tablet (Stool Softener-Stimulant Laxative) 2 tab PO BID PRN PRN Constipation #0 tabs 11/29/23 [Rx Last Taken 12/27/23] atorvastatin 20 mg tablet 20 mg PO QHS 12/27/23 [History Last Taken 12/26/23] bisacodyl 10 mg rectal suppository 10 mg ND DAILY PRN constipation 12/27/23 [History Last Taken 12/26/23] Allergy/AdvReac Type Severity Reaction Status Date / Time acetaminophen [From Tylenol] Allergy Rash Verified 11/25/23 09:06 Penicillins Allergy Other Verified 11/25/23 09:06 Surgical History History of appendectomy Social History household members: spouse housing: [facility] Smoking Status: Former smoker ROS ROS Narrative See HPI Review of Systems ROS Unobtainable: due to mental status Physical Exam Const alert and no apparent distress Constitutional Narrative: Obese. Oriented to self only. HEENT normocephalic and head/scalp atraumatic HEENT Narrative: Mallampati 3. Poor dentition. Dry mucous membranes Head and Scalp: normocephalic Eyes PERRL, EOMs intact bilaterally and conjunctivae normal Neck full ROM Resp normal respiratory effort, no retractions, no use of accessory muscles and clear to auscultation bilaterally Resp Narrative: Diminished at bases bilaterally Auscultation: Negative for rales, rhonchi or wheezes Cardio regular rate, regular rhythm, S1 normal heart sound, S2 normal heart sound, no murmurs, no rub, no gallops and no clicks GI normal to inspection, nondistended, normoactive bowel sounds and soft to palpation GI Narrative: Tenderness on right upper quadrant palpation. Drain appears to be in good position with serosanguineous output Extremity no clubbing, cyanosis or edema Skin no rashes or lesions noted Neuro Neuro Narrative: Patient with focalized weakness on left side both upper and lower extremity Speech: speech normal Psych Mood & Affect: flat affect Medical Records Data Attestation: I reviewed the patient's medical records Medical records narrative: Patient did have an echocardiogram in November 2023 showing an EF of 55% with normal diastology for age. Patient did have an elevated pulmonary artery pressure of 40 mmHg along with mild focal aortic valve calcification. Patient's baseline creatinine appears to be approximately 1.2-1.3 most recently, but did have a creatinine around 1 in November. Patient does not have any previous culture results to suggest MDRO. Patient did have an EGD in November showing abnormal esophageal motility that was suspicious for achalasia along with acute gastritis and duodenitis. Biopsies showed no H. pylori, but chronic inflammation. Lab / Micro Data Attestation: I reviewed the patient's lab results. 12/29/23 04:25 12/29/23 04:25 Labs: Laboratory Results - last 24 hr 12/28/23 06:27: POC Glucose 186 H 12/28/23 07:10: WBC 28.1 H, RBC 3.75 L, Hgb 10.8 L, Hct 32.8 L, MCV 87.5, MCH 28.8, MCHC 32.9, RDW Std Deviation 46.5 H, RDW Coeff of Yasir 14.5, Plt Count 270, MPV 10.5, Immature Gran % (Auto) 1.000 H, Neut % (Auto) 87.9 H, Lymph % (Auto) 3.8 L, Morton % (Auto) 7.1, Eos % (Auto) 0.0, Baso % (Auto) 0.2, Absolute Neuts (auto) 24.7 H, Absolute Lymphs (auto) 1.06, Nucleated RBC % 0, Diff Path Review February, Sodium 136, Potassium 3.9, Chloride 102, Carbon Dioxide 24.0, Anion Gap 10, BUN 25 H, Creatinine 1.23 H, Estim Creat Clear Calc 30.27, Est GFR (MDRD) Af Amer 53 L, Est GFR (MDRD) Non-Af 44 L, BUN/Creatinine Ratio 20.3 H, Glucose 188 H, Calcium 8.7, Phosphorus 3.6, Magnesium 1.6, Total Bilirubin 0.80, AST 10 L, ALT 15, Alkaline Phosphatase 74, Total Protein 6.1 L, Albumin 2.6 L, Globulin 3.5, Albumin/Globulin Ratio 0.7 L, Vitamin B12 415, TSH 1.19 12/28/23 08:50: PT 16.7 H, INR 1.4 12/28/23 14:05: WBC 11.2 H, RBC 3.81 L, Hgb 10.7 L, Hct 34.4 L, MCV 90.3, MCH 28.1, MCHC 31.1 L D, RDW Std Deviation 48.1 H, RDW Coeff of Yasir 14.6, Plt Count 235, MPV 10.4, Immature Gran % (Auto) 0.600, Neut % (Auto) 97.2 H, Lymph % (Auto) 1.2 L, Morton % (Auto) 0.6, Eos % (Auto) 0.0, Baso % (Auto) 0.4, Absolute Neuts (auto) 10.9 H, Absolute Lymphs (auto) 0.14 L, Nucleated RBC % 0, Differential Comment SCANNED, Sodium 137, Potassium 4.0, Chloride 105, Carbon Dioxide 22.0, Anion Gap 10, BUN 25 H, Creatinine 1.59 H, Estim Creat Clear Calc 23.41, Est GFR (MDRD) Af Amer 40 L, Est GFR (MDRD) Non-Af 33 L, BUN/Creatinine Ratio 15.7, Glucose 185 H, Lactic Acid 3.9 H*, Calcium 8.3 L, Total Bilirubin 0.80, AST 16, ALT 18, Alkaline Phosphatase 148 H, Total Protein 5.8 L, Albumin 2.4 L, Globulin 3.4, Albumin/Globulin Ratio 0.7 L 12/28/23 16:00: POC Glucose 142 H 12/28/23 18:40: Lactic Acid 3.8 H* 12/28/23 20:34: POC Glucose 185 H 12/29/23 04:25: WBC 25.2 H, RBC 3.40 L, Hgb 9.7 L, Hct 30.8 L, MCV 90.6, MCH 28.5, MCHC 31.5 L, RDW Std Deviation 49.1 H, RDW Coeff of Yasir 14.6, Plt Count 233, MPV 10.4, Immature Gran % (Auto) 1.400 H, Neut % (Auto) 89.2 H, Lymph % (Auto) 3.2 L, Morton % (Auto) 5.1, Eos % (Auto) 0.8, Baso % (Auto) 0.3, Absolute Neuts (auto) 22.5 H, Absolute Lymphs (auto) 0.80 L, Nucleated RBC % 0, Sodium 141, Potassium 3.5, Chloride 109 H, Carbon Dioxide 22.0, Anion Gap 10, BUN 33 H, Creatinine 1.95 H, Estim Creat Clear Calc 19.09, Est GFR (MDRD) Af Amer 31 L, Est GFR (MDRD) Non-Af 26 L, BUN/Creatinine Ratio 16.9, Glucose 198 H, Calcium 8.1 L, Phosphorus 4.7, Magnesium 1.5 L, Total Bilirubin 0.50, AST 21, ALT 21, Alkaline Phosphatase 100, Total Protein 5.7 L, Albumin 2.3 L, Globulin 3.4, Albumin/Globulin Ratio 0.7 L ABG Data ABG results: ABG 12/28/23 13:55 Specimen Type ART Sample Site R Radial pH 7.37 Bicarbonate Actual 18.9 L Total CO2 20 Base Excess -6 L O2 Saturation 95 O2 % 3.0 ABG pCO2 32.4 L ABG pO2 77 Corby Test Positive O2 Delivery Device Cannula Vent Mode Not entered Attestation: I personally reviewed and interpreted this ABG as follows: (Mild metabolic acidosis with partial respiratory compensation and an increased AA gradient) Imaging Radiology Impression Acute Abdomen Series 12/27/23 18:04 IMPRESSION: No sign of bowel obstruction. Mild colonic fecal retention. Electronically Signed: Cezar Webber DO at 19:06 EDT , Abdomen/Pelvis CT 12/27/23 18:30 IMPRESSION: Distended gallbladder with cholelithiasis and edematous gallbladder wall/pericholecystic fluid. Mild pericholecystic mesenteric stranding. Cholecystitis is suspected in the proper clinical settings. Fecal retention with distention of the rectum. Right adnexal cystic lesion. Mild pelvic flow. Left retroperitoneal prominent node. Electronically Signed: Cezar Webber DO at 19:35 EDT , Gallbladder Ultrasound 12/27/23 20:00 IMPRESSION: Moderately distended gallbladder with cholelithiasis and sludge. There is wall thickening of the gallbladder. Positive sonographic Traore''s sign. 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 Electronically Signed: Cezar Webber DO at 23:17 EDT , Abdomen/Pelvis CT 12/28/23 12:40 IMPRESSION: Successful percutaneous cholecystostomy. Electronically Signed: Edgardo Lennon MD at 13:04 EDT , Charges/Coding Visit Charges Inpatient E&M: 60353 Init Hosp L3
[2023-12-29] MEDS: Albuterol 2.5 MG/3 ML VIAL.NEB. INHALATION ×3 (07:07→19:45)
[2023-12-29] MEDS: Budesonide Respules 0.5 MG/2 ML AMPUL.NEB. INHALATION ×2 (07:07→19:45)
--- NOTE | 2023-12-29 07:31 | PN.SURG_ITS ---
Subjective Subjective Patient seen and examined during AM rounds. She is found sitting upright in bed. Yesterday she required transfer to the ICU due to hemodynamic instability following cholecystostomy tube placement. Today she reports ongoing abdominal pain, but also reports thirst and an appetite. She denies any bowel movements o vernight Objective Data Objective Data Vital Signs: Vital Signs Temp Pulse Resp BP Pulse Ox O2 Del Method O2 Flow Rate 99.0 F 72 19 H 92/60 99 Nasal Cannula 3 12/29/23 05:00 12/29/23 07:08 12/29/23 07:08 12/29/23 07:00 12/29/23 07:08 12/29/23 07:08 12/29/23 07:08 Oxygen Flow Rate (L/min) 3 Oxygen Delivery Method Nasal Cannula Weight: 188 lb 14.978 oz Body Mass Index (BMI) 37.0 Intake & Output: Intake and Output for Last 24 Hours 12/27/23 12/28/23 12/29/23 23:59 23:59 23:59 Intake Total 260 / 260 4369.72 / 4388.52 223.88 / 223.88 Output Total 635 / 635 0 / 0 Balance 260 / 260 3734.72 / 3753.52 223.88 / 223.88 Lab / Micro Data 12/29/23 04:25 12/29/23 04:25 Labs: Laboratory Results - last 24 hr 12/28/23 06:27: POC Glucose 186 H 12/28/23 07:10: WBC 28.1 H, RBC 3.75 L, Hgb 10.8 L, Hct 32.8 L, MCV 87.5, MCH 28.8, MCHC 32.9, RDW Std Deviation 46.5 H, RDW Coeff of Yasir 14.5, Plt Count 270, MPV 10.5, Immature Gran % (Auto) 1.000 H, Neut % (Auto) 87.9 H, Lymph % (Auto) 3.8 L, Coleman % (Auto) 7.1, Eos % (Auto) 0.0, Baso % (Auto) 0.2, Absolute Neuts (auto) 24.7 H, Absolute Lymphs (auto) 1.06, Nucleated RBC % 0, Diff Path Review February, Sodium 136, Potassium 3.9, Chloride 102, Carbon Dioxide 24.0, Anion Gap 10, BUN 25 H, Creatinine 1.23 H, Estim Creat Clear Calc 30.27, Est GFR (MDR D) Af Amer 53 L, Est GFR (MDRD) Non-Af 44 L, BUN/Creatinine Ratio 20.3 H, Glucose 188 H, Calcium 8.7, Phosphorus 3.6, Magnesium 1.6, Total Bilirubin 0.80, AST 10 L, ALT 15, Alkaline Phosphatase 74, Total Protein 6.1 L, Albumin 2.6 L, Globulin 3.5, Albumin/Globulin Ratio 0.7 L, Vitamin B12 415, TSH 1.19 12/28/23 08:50: PT 16.7 H, INR 1.4 12/28/23 14:05: WBC 11.2 H, RBC 3.81 L, Hgb 10.7 L, Hct 34.4 L, MCV 90.3, MCH 28.1, MCHC 31.1 L D, RDW Std Deviation 48.1 H, RDW Coeff of Yasir 14.6, Plt Count 235, MPV 10.4, Immature Gran % (Auto) 0.600, Neut % (Auto) 97.2 H, Lymph % (Auto) 1.2 L, Coleman % (Auto) 0.6, Eos % (Auto) 0.0, Baso % (Auto) 0.4, Absolute Neuts (auto) 10.9 H, Absolute Lymphs (auto) 0.14 L, Nucleated RBC % 0, Differe ntial Comment SCANNED, Sodium 137, Potassium 4.0, Chloride 105, Carbon Dioxide 22.0, Anion Gap 10, BUN 25 H, Creatinine 1.59 H, Estim Creat Clear Calc 23.41, Est GFR (MDRD) Af Amer 40 L, Est GFR (MDRD) Non-Af 33 L, BUN/Creatinine Ratio 15.7, Glucose 185 H, Lactic Acid 3.9 H*, Calcium 8.3 L, Total Bilirubin 0.80, AST 16, ALT 18, Alkaline Phosphatase 148 H, Total Protein 5.8 L, Albumin 2.4 L, Globulin 3.4, Albumin/Globulin Ratio 0.7 L 12/28/23 16:00: POC Glucose 142 H 12/28/23 18:40: Lactic Acid 3.8 H* 12/28/23 20:34: POC Glucose 185 H 12/29/23 04:25: WBC 25.2 H, RBC 3.40 L, Hgb 9.7 L, Hct 30.8 L, MCV 90.6, MCH 28.5, MCHC 31.5 L, RDW Std Deviation 49.1 H, RDW Coeff of Yasir 14.6, Plt Count 233, MPV 10.4, Immature Gran % (Auto) 1.400 H, Neut % (Auto) 89.2 H, Lymph % (Auto) 3.2 L, Coleman % (Auto) 5.1, Eos % (Auto) 0.8, Baso % (Auto) 0.3, Absolute Neuts (auto) 22.5 H, Absolute Lymphs (auto) 0.80 L, Nucleated RBC % 0, Sodium 141, Potassium 3.5, Chloride 109 H, Carbon Dioxide 22.0, Anion Gap 10, BUN 33 H, Creatinine 1.95 H, Estim Creat Clear Calc 19.09, Est GFR (MDRD) Af Amer 31 L, Est GFR (MDRD) Non-Af 26 L, BUN/Creatinine Ratio 16.9, Glucose 198 H, Calcium 8.1 L, Phosphorus 4.7, Magnesium 1.5 L, Total Bilirubin 0.50, AST 21, ALT 21, Alkaline Phosphatase 100, Total Protein 5.7 L, Albumin 2.3 L, Globulin 3.4, Albumin/Globulin Ratio 0.7 L ABG Data ABG results: ABG 12/28/23 13:55 Specimen Type ART Sample Site R Radial pH 7.37 Bicarbonate Actual 18.9 L Total CO2 20 Base Excess -6 L O2 Saturation 95 O2 % 3.0 ABG pCO2 32.4 L ABG pO2 77 Corby Test Positive O2 Delivery Device Cannula Vent Mode Not entered Radiography Diagnostic Testing: Radiology Impression Acute Abdomen Series 12/27/23 18:04 IMPRESSION: No sign of bowel obstruction. Mild colonic fecal retention. Electronically Signed: Cezar Webber DO at 19:06 EDT Reading Location ID and State: [facility] / [place] Tel [phone], Service support , Abdomen/Pelvis CT 12/27/23 18:30 IMPRESSION: Distended gallbladder with cholelithiasis and edematous gallbladder wall/pericholecystic fluid. Mild pericholecystic mesenteric stranding. Cholecystitis is suspected in the proper clinical settings. Fecal retention with distention of the rectum. Right adnexal cystic lesion. Mild pelvic flow. Left retroperitoneal prominent node. Electronically Signed: Cezar WebebrDO at 19:35 EDT , Gallbladder Ultrasound 12/27/23 20:00 IMPRESSION: Moderately distended gallbladder with cholelithiasis and sludge. There is wall thickening of the gallbladder. Positive sonographic Traore''s sign. 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 Electronically Signed: Cezar Webber DO at 23:17 EDT , Abdomen/Pelvis CT 12/28/23 12:40 IMPRESSION: Successful percutaneous cholecystostomy. Electronically Signed: Edgardo Lennon MD at 13:04 EDT , Physical Exam Const Constitutional Narrative: Oriented to person and place Resp normal respiratory effort Resp Narrative: Currently receiving a nebulized breathing treatment GI GI Narrative: Moderately distended, soft, tender to palpation about the cholecystostomy tube exit site in the right upper quadrant. Cholecystostomy tube is draining brown bile. There is no evidence of clots within the tubing Assessment & Plan Assessment/Plan (1) Acute calculous cholecystitis: PLAN: Patient is hospital day 3 for admission for acute cholecystitis. Yesterday she underwent percutaneous cholecystostomy tube placement, but post procedurally required transfer to the ICU due to hemodynamic instability and evidence of sepsis. Tube placement was confirmed with a formal CT and upon my independent review I agree with the radiologic interpretation that the placement was successful. Today the tube continues to drain bile appropriately. Pressor support initiated yesterday is weaned today. Patient is also less tachypneic appearing. She denies any improvement in her abdominal exam, but clinically does look improved. Given the fluid resuscitation patient received during her period of hypotension her hemoglobin is not markedly decreased. A workup is ongoing for patient's aspiration risk, but if she remains both hemodynamically stable and improved from a respiratory standpoint I would recommend reinitiation of a diet as approved by speech therapy. Additionally, treatment should continue for patient's significant constipation and I have requested a soapsuds enema. Patient is noted to be somewhat oliguric with evidence of acute kidney injury. Agree with orders by hospitalist service to place a Garcia for accurate ins and outs monitoring. Charges/Coding Visit Charges Inpatient E&M: 33878 Subs Hosp L2
[2023-12-29 08:38] LABS: Bedside Glucose 149 mg/dL (74-106)
--- NOTE | 2023-12-29 08:47 | PN.HOSP_ITS ---
Reason for Visit Reason for Visit: Abdominal pain/nausea/vomiting Subjective Subjective No significant issues overnight. The patient was able to be weaned off Levophed early this morning and clinically is doing better. Stating she is having some abdominal pain today at the drain site. No significant urine output overnight however patient has a pure wick. Will place Garcia. Objective Data Objective Data Vital Signs: Vital Signs Temp Pulse Resp BP Pulse Ox O2 Del Method O2 Flow Rate 99.0 F 72 19 H 92/60 99 Nasal Cannula 3 12/29/23 05:00 12/29/23 07:08 12/29/23 07:08 12/29/23 07:00 12/29/23 07:08 12/29/23 07:08 12/29/23 07:08 Oxygen Flow Rate (L/min) 3 Oxygen Delivery Method Nasal Cannula Weight: 85.7 kg Body Mass Index (BMI) 37.0 Intake & Output: Intake and Output for Last 24 Hours 12/27/23 12/28/23 12/29/23 23:59 23:59 23:59 Intake Total 260 / 260 4369.72 / 4388.52 223.88 / 223.88 Output Total 635 / 635 0 / 0 Balance 260 / 260 3734.72 / 3753.52 223.88 / 223.88 Lab / Micro Data 12/29/23 04:25 12/29/23 04:25 Labs: Laboratory Results - last 24 hr 12/28/23 07:10: Sodium 136, Potassium 3.9, Chloride 102, Carbon Dioxide 24.0, Anion Gap 10, BUN 25 H, Creatinine 1.23 H, Estim Creat Clear Calc 30.27, Est GFR (MDRD) Af Amer 53 L, Est GFR (MDRD) Non-Af 44 L, BUN/Creatinine Ratio 20.3 H, Glucose 188 H, Calcium 8.7, Phosphorus 3.6, Magnesium 1.6, Total Bilirubin 0.80, AST 10 L, ALT 15, Alkaline Phosphatase 74, Total Protein 6.1 L, Albumin 2.6 L, Globulin 3.5, Albumin/Globulin Ratio 0.7 L, TSH 1.19 12/28/23 08:50: PT 16.7 H, INR 1.4 12/28/23 14:05: WBC 11.2 H, RBC 3.81 L, Hgb 10.7 L, Hct 34.4 L, MCV 90.3, MCH 28.1, MCHC 31.1 L D, RDW Std Deviation 48.1 H, RDW Coeff of Yasir 14.6, Plt Count 235, MPV 10.4, Immature Gran % (Auto) 0.600, Neut % (Auto) 97.2 H, Lymph % (Auto) 1.2 L, [place] % (Auto) 0.6, Eos % (Auto) 0.0, Baso % (Auto) 0.4, Absolute Neuts (auto) 10.9 H, Absolute Lymphs (auto) 0.14 L, Nucleated RBC % 0, Differential Comment SCANNED, Sodium 137, Potassium 4.0, Chloride 105, Carbon Dioxide 22.0, Anion Gap 10, BUN 25 H, Creatinine 1.59 H, Estim Creat Clear Calc 23.41, Est GFR (MDRD) Af Amer 40 L, Est GFR (MDRD) Non-Af 33 L, BUN/Creatinine Ratio 15.7, Glucose 185 H, Lactic Acid 3.9 H*, Calcium 8.3 L, Total Bilirubin 0.80, AST 16, ALT 18, Alkaline Phosphatase 148 H, Total Protein 5.8 L, Albumin 2.4 L, Globulin 3.4, Albumin/Globulin Ratio 0.7 L 12/28/23 16:00: POC Glucose 142 H 12/28/23 18:40: Lactic Acid 3.8 H* 12/28/23 20:34: POC Glucose 185 H 12/29/23 04:25: WBC 25.2 H, RBC 3.40 L, Hgb 9.7 L, Hct 30.8 L, MCV 90.6, MCH 28.5, MCHC 31.5 L, RDW Std Deviation 49.1 H, RDW Coeff of Yasir 14.6, Plt Count 233, MPV 10.4, Immature Gran % (Auto) 1.400 H, Neut % (Auto) 89.2 H, Lymph % (Au to) 3.2 L, [place] % (Auto) 5.1, Eos % (Auto) 0.8, Baso % (Auto) 0.3, Absolute N euts (auto) 22.5 H, Absolute Lymphs (auto) 0.80 L, Nucleated RBC % 0, Sodium 141, Potassium 3.5, Chloride 109 H, Carbon Dioxide 22.0, Anion Gap 10, BUN 33 H, Creatinine 1.95 H, Estim Creat Clear Calc 19.09, Est GFR (MDRD) Af Amer 31 L, Est GFR (MDRD) Non-Af 26 L, BUN/Creatinine Ratio 16.9, Glucose 198 H, Calcium 8. 1 L, Phosphorus 4.7, Magnesium 1.5 L, Total Bilirubin 0.50, AST 21, ALT 21, Alkaline Phosphatase 100, Total Protein 5.7 L, Albumin 2.3 L, Globulin 3.4, Albumin/Globulin Ratio 0.7 L 12/29/23 07:59: POC Glucose 149 H ABG Data ABG results: ABG 12/28/23 13:55 Specimen Type ART Sample Site R Radial pH 7.37 Bicarbonate Actual 18.9 L Total CO2 20 Base Excess -6 L O2 Saturation 95 O2 % 3.0 ABG pCO2 32.4 L ABG pO2 77 [place] Test Positive O2 Delivery Device Cannula Vent Mode Not entered Radiography Diagnostic Testing: Radiology Impression Acute Abdomen Series 12/27/23 18:04 IMPRESSION: No sign of bowel obstruction. Mild colonic fecal retention. Electronically Signed: Cezar Webber DO at 19:06 EDT , Abdomen/Pelvis CT 12/27/23 18:30 IMPRESSION: Distended gallbladder with cholelithiasis and edematous gallbladder wall/pericholecystic fluid. Mild pericholecystic mesenteric stranding. Cholecystitis is suspected in the proper clinical settings. Fecal retention with distention of the rectum. Right adnexal cystic lesion. Mild pelvic flow. Left retroperitoneal prominent node. Electronically Signed: Cezar Webber DO at 19:35 EDT , Gallbladder Ultrasound 12/27/23 20:00 IMPRESSION: Moderately distended gallbladder with cholelithiasis and sludge. There is wall thickening of the gallbladder. Positive sonographic Traore''s sign. 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 Electronically Signed: Cezar Webber at 23:17 EDT , Abdomen/Pelvis CT 12/28/23 12:40 IMPRESSION: Successful percutaneous cholecystostomy. Electronically Signed: Edgardo Lennon MD at 13:04 EDT , Physical Exam Const alert and no apparent distress; Negative for average body habitus or healthy appearing Constitutional Narrative: Ill-appearing obese, elderly, white female, sitting up in bed currently appears comfortable, confused, nontoxic, chronically ill-appearing, general surgery physician at bedside Orientation / Consciousness: confused HEENT normocephalic and head/scalp atraumatic HEENT Narrative: Mild hearing loss, Mallampati 3-4, no thrush Resp normal respiratory effort, no retractions, no use of accessory muscles and clear to auscultation bilaterally Resp Narrative: Diminished at bases bilaterally Auscultation: Negative for rales, rhonchi or wheezes Cardio regular rate, regular rhythm, S1 normal heart sound, S2 normal heart sound, no murmurs, no rub, no gallops and no clicks GI normal to inspection, nondistended, normoactive bowel sounds and soft to palpation GI Narrative: Tenderness on right upper quadrant palpation, drain in place which is currently empty Extremity no clubbing, cyanosis or edema Extremity Narrative: Pedal pulses are 2+, radial pulses are 2+ Skin Skin Narrative: Neuro Neuro Narrative: Patient with focalized weakness on left side both upper and lower extremity Sensorium / Orientation: awake, alert and oriented to person Speech: speech normal Psych Psych Narrative: Affect is flat, patient appears fatigued Assessment & Plan Assessment/Plan (1) Acute calculous cholecystitis: (2) Altered mental status: QUALIFIERS: Altered mental status type: transient alteration of awareness Qualified Code(s): R40.4 - Transient alteration of awareness (3) Leukocytosis: (4) Tibial plateau fracture, left: QUALIFIERS: Encounter type: subsequent encounter Fracture type: closed Fracture healing: with delayed healing Qualified Code(s): S82.142G - Displaced bicondylar fracture of left tibia, subsequent encounter for closed fracture with delayed healing (5) Nausea & vomiting: QUALIFIERS: Vomiting type: unspecified Qualified Code(s): R11.2 - Nausea with vomiting, unspecified (6) Dysphagia: (7) Septic shock: (8) Hypomagnesemia: PLAN: Plan Septic shock secondary to acute calculus cholecystitis with nausea and vomiting -Patient had SIRS response that deteriorated to septic shock after PERC Shruti tube was placed -Patient was fluid resuscitated at 30 cc/kg of body weight but required initiation of pressors -Patient was on Levophed 10 throughout most of the night but was able to be weaned and now off as of 615 this morning -Continue meropenem -Hold IV fluids for now -As needed pain medication -As needed antiemetics -N.p.o. for now -Surgery is following-appreciate input ISA on CKD stage IIIb secondary to ischemic ATN from hypotension -Baseline serum creatinine appears to run between 1.1 and 1.3 -Now up to 1.95 -Continue to hold antihypertensives -Will hold off on fluids for now as she has received a marked amount of fluids -Place Garcia catheter -Current no need for renal replacement therapy but will continue to monitor and consult nephrology if her creatinine continues to worsen without plateauing and trending back down -Avoid nephrotoxins as able -Continue to monitor Leukocytosis -Likely related to the above -Blood cultures are pending -Gallbladder cultures are pending -Continue antibiotics Chronic hypoxia secondary to suspected aspiration -Oxygen requirements have been fluctuating in the nursing facility -Currently stable on 2 to 3 L nasal cannula -Continue to monitor -Speech therapy consultation as I highly suspect her respiratory status at [facility] is related to chronic aspiration Dysphagia and achalasia -Dilation done on EGD from November 2023 -Recommend outpatient follow-up -Will have speech therapy see patient - reports she was on a mechanical soft thin liquid diet at the facility Hypomagnesemia -IV replacement given -Repeat in a.m. Gastritis/duodenitis -This too was recognized and EGD -Continue PPI IV for now and transition to p.o. once able Toxic/metabolic encephalopathy on chronic dementia -Likely related to the above -Suspect possible vascular dementia with previous strokes -CT of the brain does showed old infarct -TSH is pending -B12 and folate are unremarkable -Will add low-dose risperidone at night to help with sundowning and agitation Anemia chronic normocytic -Patient with 1 g drop in the last 24 hours however she has received significant mount of fluid and I suspect this is hemodilution -Will continue to monitor but should improve if hemodilution is the etiology -Repeat CBC in a.m. Constipation -Continue ordered bowel regimen as ordered by general surgery DM-2 -Fairly well-controlled with a hemoglobin A1c of 7.4 on admission -Acute elevation is likely related to acute illness -Increase basal insulin to 10 units -SSI every 6 for now -Accu-Cheks as ordered HTN/HPL/CAD -Hold home atorvastatin -Continue home carvedilol -Hold home enalapril -Hold home Lasix Debility/nonambulatory at baseline/tibial plateau fracture -PT/OT consultation for bed mobility -Will likely need placement again at discharge Obesity -BMI 37.7 -Recommend weight loss -Complicates treatment, prognosis, outcomes DVT prophylaxis -Continue subcu heparin CODE STATUS -DNR CCA per discussion yesterday with family Charges/Coding Visit Charges Inpatient E&M: 62163 Subs Hosp L2
[2023-12-29] MEDS: Bisacodyl 10 MG Suppository RC (09:29)
[2023-12-29] MEDS: Nystatin Ointment 1 APPLIC TOPICAL (09:29)
[2023-12-29] MEDS: Menthol/Lanolin/Calamine/Znox 113 GM Tube 1 APPLIC TOPICAL ×2 (09:29→20:13)
--- NOTE | 2023-12-29 09:59 | CASEMGMT ---
Social Work Pt is admitted from [facility]. Updates sent to [facility] and pt can return and is currently there under Medicare Skilled benefit. Phone call to pt's spouse Kaiden Amos and discussed discharge plan. Per Kaiden, pt will return to [facility] when medically ready. Plan: Return to [facility], when medically ready LIONEL Galvan
[2023-12-29] MEDS: Pantoprazole Sodium 40 MG in 0.9% Normal Saline (100mL MB+) 100 ML 330 MG IV (10:03)
[2023-12-29] MEDS: 0.9% Saline Lock 10 ML Syringe IV (10:04)
[2023-12-29] MEDS: Meropenem 500 MG in 0.9% Normal Saline (50mL MB+) 50 ML 100 MG IV ×2 (10:28→20:14)
[2023-12-29 11:27] LABS: Bedside Glucose 146 mg/dL (74-106)
[2023-12-29] MEDS: oxyCODONE 5 MG Tablet PO ×2 (11:44→20:14)
[2023-12-29] MEDS: Lidocaine 1% (20 ml mdv) 20 ML Vial 5 ML INFILT (13:33)
[2023-12-29] MEDS: Midodrine HCl 5 MG Tablet 10 MG PO (16:09)
[2023-12-29 16:33] LABS: Bedside Glucose 138 mg/dL (74-106)
[2023-12-29] MEDS: RisperiDONE 0.5 MG Tablet PO (20:14)
[2023-12-29] MEDS: Insulin Lispro 100 UNIT/ML INSULN.PEN SC (20:17)
[2023-12-29] MEDS: Norepinephrine 8 MG in 0.9% Normal Saline (250mL Bag) 242 ML 5.6 MG CONT INF (20:27)
[2023-12-29 20:48] LABS: Bedside Glucose 165 mg/dL (74-106)
[2023-12-30] VITALS (37 sets, daily range): BP systolic 92–153; BP diastolic 45–69; PULSE 51–76; RESP 11–23; TEMP 36.3–37.4; O2SAT 87–98; BMI 36.6
[2023-12-30 03:54] LABS: Absolute Lymphocyte Count 0.91 X10^3/uL (0.83-4.51); Absolute Neutrophil Count 13.5 X10^3/uL (2.0-7.7); Basophil# 0.04 X10^3/uL; Basophil% 0.3 % (0-1); Eosinophil# 0.12 X10^3/uL; Eosinophils% 0.8 % (0-5); Hematocrit 29.1 % (37-47); Hemoglobin 9.4 g/dL (12.0-15.0); Lymphocyte # 0.91 X10^3/ul (0.83-4.51); Lymphocyte % 5.8 % (19-41); Mean Corp Hgb Conc 32.3 g/dL (32-36); Mean Corpuscular Hgb 28.5 pg (27.0-32.0); Mean Corpuscular Volume 88.2 fL (81-99); Mean Platelet Vol. 10.8 fl (6.2-12.0); Monocyte# 0.98 X10^3/uL; Monocyte% 6.3 % (0-10); NRBC Flagged by Analyzer 0 % (0-5); Neutrophil # 13.47 X10^3/uL (2.7-7.7); Neutrophil % 86.1 % (47-70); Platelet Count 255 K/mm3 (150-450); RBC Distribution Width CV 14.6 % (11.6-14.6); RBC Distribution Width SD 47.1 fl (35.1-43.9); White Blood Count 15.6 K/mm3 (4.4-11.0)
[2023-12-30 04:12] LABS: ALB/GLOB Ratio 0.7 RATIO (0.9-2.4); AST(SGOT) 19 U/L (15-37); Alanine Aminotransfer ALT/SGPT 21 U/L (13-56); Albumin, Serum 2.2 g/dL (3.2-5.0); Alkaline Phosphatase 88 U/L (45-117); Anion Gap 10 (5-15); BUN 41 mg/dL (7-18); BUN/Creat Ratio 26.1 RATIO (10-20); Calcium,Total 8.3 mg/dL (8.5-10.1); Chloride 110 mmol/L (98-107); Creatinine, Serum 1.57 mg/dL (0.55-1.02); EST Glomerular Filtration Rate 33 mL/min (>60); Est Glom Filt Rate - Afr Amer 40 mL/min (>60); Estimated Creatinine Clearance 24.54 ml/min; Globulin 3.3 g/dL (2.2-4.2); Glucose 145 mg/dL (74-106); Magnesium 2.9 mg/dL (1.6-2.6); Potassium 3.6 mmol/L (3.5-5.1); Protein, Total 5.5 g/dL (6.4-8.2); Sodium Level 141 mmol/L (136-145)
[2023-12-30] MEDS: Heparin Injection (Vial) 5,000 UNIT/ML VIAL 5000 UNIT SC ×3 (05:46→20:22)
--- NOTE | 2023-12-30 06:36 | PCM.PN.INT ---
Assessment & Plan Assessment/Plan (1) Acute calculous cholecystitis: (2) Altered mental status: QUALIFIERS: Altered mental status type: transient alteration of awareness Qualified Code(s): R40.4 - Transient alteration of awareness (3) Septic shock: PLAN: Plan RECOMMENDATIONS: 1. Continue empiric antibiotics pending cultures 2. Wean oxygen and pressors as tolerated 3. Swallow study later today with possible advancement of diet 4. Encourage pulmonary recruitment such as incentive spirometer IMPRESSIONS: 1. Septic shock secondary to acute calculus cholecystitis Cultures are currently pending, but growing gram-negative's. Clinical suspicion for bacteremia following drain placement. Patient has stabilized at this time. Patient is on appropriate antibiotics. Anticipate recurrent need for pressors secondary to manipulation of drain. Continue pain medications as necessary. Leukocytosis is much improved compared to yesterday. 2. Chronic hypoxic respiratory insufficiency Unclear etiology. Patient does have some dementia, so atelectasis may be an issue. Patient also recently diagnosed with achalasia and this could be leading to mild aspiration. Patient appears to be stable on minimal nasal cannula oxygen at this time. Given goals of therapy, it is unclear if patient would require an extensive outpatient workup, but this can be discussed once patient stabilizes. 3. Toxic/metabolic encephalopathy on chronic dementia Workup is currently pending. Magnesium has been repleted. Patient does have chronic kidney disease increasing risk for toxic metabolites. Patient does have previous strokes, so vascular dementia would also be a concern. 4. Diabetes mellitus type 2/hypertension/hyperlipidemia/CAD/debility/recent falls/fracture/CKD stage IIIb Complicates care, management, recovery and prognosis. Blood sugars are adequate at this time. Antihypertensives have been held secondary to problem #1. Conservative therapy for fractures will be continued. Creatinine has improved with supportive hemodynamics. Glucoses are acceptable at this time TIME: 32 minutes critical care time spent addressing patient's septic shock, hypoxia, encephalopathy, diabetes mellitus, review of all data and collaboration with care team Subjective Subjective Patient did okay overnight. Patient did have a manipulation of the Evelyn tube yesterday with resultant hypotension. Patient still on Levophed this morning. Patient reporting right upper quadrant abdominal pain with no significant change compared to yesterday. Nursing had reported some concerns of coughing associated with sips, so she has been n.p.o. overnight awaiting speech therapy evaluation. Patient is reporting a dry mouth. Objective Data Objective Data Vital Signs: Vital Signs Temp Pulse Resp BP Pulse Ox O2 Del Method O2 Flow Rate 36.7 C 61 15 110/52 L 95 Nasal Cannula 1 12/30/23 06:00 12/30/23 06:00 12/30/23 06:00 12/30/23 06:00 12/30/23 06:00 12/30/23 06:00 12/30/23 06:00 Oxygen Flow Rate (L/min) 1 Oxygen Delivery Method Nasal Cannula Weight: 84.5 kg Body Mass Index (BMI) 36.6 Intake & Output: Intake and Output for Last 24 Hours 12/28/23 12/29/23 12/30/23 23:59 23:59 23:59 Intake Total 4369.72 / 4388.52 768.16 / 773.76 39.2 / 39.2 Output Total 635 / 635 620 / 620 595 / 595 Balance 3734.72 / 3753.52 148.16 / 153.76 -555.8 / -555.8 Lab / Micro Data Attestation: I reviewed the patient's lab results. 12/30/23 03:40 12/30/23 03:40 Labs: Laboratory Results - last 24 hr 12/29/23 07:59: POC Glucose 149 H 12/29/23 11:09: POC Glucose 146 H 12/29/23 16:07: POC Glucose 138 H 12/29/23 20:17: POC Glucose 165 H 12/30/23 03:40: WBC 15.6 H, RBC 3.30 L, Hgb 9.4 L, Hct 29.1 L, MCV 88.2, MCH 28.5, MCHC 32.3, RDW Std Deviation 47.1 H, RDW Coeff of Yasir 14.6, Plt Count 255, MPV 10.8, Immature Gran % (Auto) 0.700, Neut % (Auto) 86.1 H, Lymph % (Auto) 5.8 L, [place] % (Auto) 6.3, Eos % (Auto) 0.8, Baso % (Auto) 0.3, Absolute Neuts (auto) 13.5 H, Absolute Lymphs (auto) 0.91, Nucleated RBC % 0, Sodium 141, Potassium 3.6, Chloride 110 H, Carbon Dioxide 21.0, Anion Gap 10, BUN 41 H, Creatinine 1.57 H, Estim Creat Clear Calc 24.54, Est GFR (MDRD) Af Amer 40 L, Est GFR (MDRD) Non-Af 33 L, BUN/Creatinine Ratio 26.1 H, Glucose 145 H, Calcium 8.3 L, Magnesium 2.9 H, Total Bilirubin 0.50, AST 19, ALT 21, Alkaline Phosphatase 88, Total Protein 5.5 L, Albumin 2.2 L, Globulin 3.3, Albumin/Globulin Ratio 0.7 L Micro: Microbiology 12/28/23 11:50 [facility] Drainage Gram Stain - Final 12/28/23 11:50 [facility] Drainage Wound Culture - Preliminary GNR lactose slitter service and setter Physical Exam Const alert and no apparent distress Constitutional Narrative: Obese. Oriented to self only. Asking for water frequently HEENT normocephalic and head/scalp atraumatic Eyes PERRL, EOMs intact bilaterally and conjunctivae normal Neck full ROM Resp normal respiratory effort, no retractions, no use of accessory muscles and clear to auscultation bilaterally Resp Narrative: Diminished at bases bilaterally Auscultation: Negative for rales, rhonchi or wheezes Cardio regular rate, regular rhythm, S1 normal heart sound, S2 normal heart sound, no murmurs, no rub, no gallops and no clicks GI normal to inspection, nondistended, normoactive bowel sounds and soft to palpation GI Narrative: Tenderness on right upper quadrant palpation. Drain appears to be in good position with serosanguineous output Extremity no clubbing, cyanosis or edema Skin no rashes or lesions noted Neuro Neuro Narrative: Patient with focalized weakness on left side both upper and lower extremity Speech: speech normal Psych Mood & Affect: flat affect Charges/Coding Procedures Hospitalists Procedures: 30525 Critical Care 1st Hr
[2023-12-30] MEDS: Budesonide Respules 0.5 MG/2 ML AMPUL.NEB. INHALATION ×2 (06:40→19:11)
[2023-12-30] MEDS: Albuterol 2.5 MG/3 ML VIAL.NEB. INHALATION ×3 (06:40→19:11)
--- NOTE | 2023-12-30 08:21 | PCM.PN.HOSP ---
Reason for Visit Reason for Visit: Abdominal pain/nausea/vomiting Subjective Subjective No issues overnight. Patient did end up back on Levophed yesterday afternoon but is currently only at 2-3 mics per minute. White count is trending down. We did add some midodrine hopefully this helps get her off pressors. Modified barium swallow planned for today. Patient is asking for some ice as she states her mouth is dry. We will have nursing clean out her mouth to moisten it for her until we can allow her to eat. Hoping to start some sort of diet later today. Patient denying any significant abdominal pain at this time. Objective Data Objective Data Vital Signs: Vital Signs Temp Pulse Resp BP Pulse Ox O2 Del Method O2 Flow Rate 98.0 F 63 14 142/54 H 92 Room Air 1 12/30/23 06:00 12/30/23 07:00 12/30/23 07:00 12/30/23 07:00 12/30/23 07:00 12/30/23 07:00 12/30/23 06:00 Oxygen Flow Rate (L/min) 1 Oxygen Delivery Method Room Air Weight: 84.5 kg Body Mass Index (BMI) 36.6 Intake & Output: Intake and Output for Last 24 Hours 12/28/23 12/29/23 12/30/23 23:59 23:59 23:59 Intake Total 4369.72 / 4388.52 768.16 / 773.76 44.8 / 44.8 Output Total 635 / 635 620 / 620 595 / 595 Balance 3734.72 / 3753.52 148.16 / 153.76 -550.2 / -550.2 Lab / Micro Data 12/30/23 03:40 12/30/23 03:40 Labs: Laboratory Results - last 24 hr 12/29/23 07:59: POC Glucose 149 H 12/29/23 11:09: POC Glucose 146 H 12/29/23 16:07: POC Glucose 138 H 12/29/23 20:17: POC Glucose 165 H 12/30/23 03:40: WBC 15.6 H, RBC 3.30 L, Hgb 9.4 L, Hct 29.1 L, MCV 88.2, MCH 28.5, MCHC 32.3, RDW Std Deviation 47.1 H, RDW Coeff of Yasir 14.6, Plt Count 255, MPV 10.8, Immature Gran % (Auto) 0.700, Neut % (Auto) 86.1 H, Lymph % (Auto) 5.8 L, [place] % (Auto) 6.3, Eos % (Auto) 0.8, Baso % (Auto) 0.3, Absolute Neuts (auto) 13.5 H, Absolute Lymphs (auto) 0.91, Nucleated RBC % 0, Sodium 141, Potassium 3.6, Chloride 110 H, Carbon Dioxide 21.0, Anion Gap 10, BUN 41 H, Creatinine 1.57 H, Estim Creat Clear Calc 24.54, Est GFR (MDRD) Af Amer 40 L, Est GFR (MDRD) Non-Af 33 L, BUN/Creatinine Ratio 26.1 H, Glucose 145 H, Calcium 8.3 L, Magnesium 2.9 H, Total Bilirubin 0.50, AST 19, ALT 21, Alkaline Phosphatase 88, Total Protein 5.5 L, Albumin 2.2 L, Globulin 3.3, Albumin/Globulin Ratio 0.7 L Micro: Microbiology 12/27/23 20:07 Blood Culture (Wb) - Left Hand Blood Culture - Preliminary No growth in 48 hours. 12/28/23 11:50 Iglesia Henry Drainage Gram Stain - Final 12/28/23 11:50 Iglesia Ehnry Drainage Wound Culture - Preliminary GNR lactose director of strategic sales 12/28/23 11:50 Iglesia Henry Drainage Anaerobic Culture - Preliminary Physical Exam Const alert and no apparent distress; Negative for average body habitus or healthy appearing Constitutional Narrative: Obese, elderly, white female, sitting up in bed, general surgeon at bedside, patient appears brighter and appears as if she is feeling much better, looks comfortable at this time, nontoxic Orientation / Consciousness: confused HEENT normocephalic, head/scalp atraumatic and hearing grossly normal bilaterally Eyes PERRL and EOMs intact bilaterally Neck no lymphadenopathy Resp normal respiratory effort, no retractions, no use of accessory muscles and clear to auscultation bilaterally Resp Narrative: Diminished at bases bilaterally Auscultation: Negative for rales, rhonchi or wheezes Cardio regular rate, regular rhythm, S1 normal heart sound, S2 normal heart sound, no murmurs, no rub, no gallops and no clicks GI normal to inspection, nondistended, normoactive bowel sounds and soft to palpation GI Narrative: Tenderness on right upper quadrant palpation, drain in place which is currently empty Extremity no clubbing, cyanosis or edema Extremity Narrative: Pedal pulses are 2+, radial pulses are 2+ Skin Skin Narrative: Neuro CN's II-XII intact bilaterally Neuro Narrative: Patient with focalized weakness on left side both upper and lower extremity Sensorium / Orientation: awake, alert and oriented to person Speech: speech normal Psych affect normal Psych Narrative: Affect is flat, patient appears fatigued Assessment & Plan Assessment/Plan (1) Acute calculous cholecystitis: (2) Altered mental status: QUALIFIERS: Altered mental status type: transient alteration of awareness Qualified Code(s): R40.4 - Transient alteration of awareness (3) Leukocytosis: (4) Tibial plateau fracture, left: QUALIFIERS: Encounter type: subsequent encounter Fracture healing: with delayed healing Fracture type: closed Qualified Code(s): S82.142G - Displaced bicondylar fracture of left tibia, subsequent encounter for closed fracture with delayed healing (5) Nausea & vomiting: QUALIFIERS: Vomiting type: unspecified Qualified Code(s): R11.2 - Nausea with vomiting, unspecified (6) Dysphagia: (7) Septic shock: (8) Hypomagnesemia: PLAN: Plan Septic shock secondary to acute calculus cholecystitis with nausea and vomiting -Patient had SIRS response that deteriorated to septic shock after PERC Shruti tube was placed -Patient was fluid resuscitated at 30 cc/kg of body weight but required initiation of pressors -Patient was off Levophed some yesterday however had to be restarted in the afternoon -Currently on 3 mcg/min -Midodrine 10 mg 3 times daily added yesterday to assist getting off pressors -Continue meropenem -As needed pain medication -As needed antiemetics -N.p.o. until can find a safe diet -Surgery is following-appreciate input ISA on CKD stage IIIb secondary to ischemic ATN from hypotension -Baseline serum creatinine appears to run between 1.1 and 1.3 -1.95 yesterday but now trending down and 1.57 today -Continue to hold antihypertensives -Try to keep maps above 65 -Continue Garcia catheter for now -Avoid nephrotoxins as able -Continue to monitor Leukocytosis -Trending down -Blood cultures are pending -Gallbladder cultures are pending -Continue antibiotics Chronic hypoxia secondary to suspected aspiration -Oxygen requirements have been fluctuating in the nursing facility -Patient has been weaned to room air at 92% at this time -Continue to monitor -Suspect aspiration is likely a component Dysphagia and achalasia -Dilation done on EGD from November 2023 -Recommend outpatient follow-up -Speech therapy is following -Plan for MBS today Hypomagnesemia -Resolved Gastritis/duodenitis -Continue PPI IV for now and transition to p.o. once able Toxic/metabolic encephalopathy on chronic dementia -Likely related to the above -Mental status seems to be improving significantly -Suspect possible vascular dementia with previous strokes -CT of the brain does showed old infarct -TSH was within normal limits -B12 and folate are unremarkable -Continue risperidone Anemia chronic normocytic -Patient with 1 g drop in the last 24 hours however she has received significant mount of fluid and I suspect this is hemodilution -Will continue to monitor but should improve if hemodilution is the etiology -Repeat CBC in a.m. Constipation -Continue ordered bowel regimen as ordered by general surgery -No significant bowel movement as of yet DM-2 -Fairly well-controlled with a hemoglobin A1c of 7.4 on admission -Acute elevation is likely related to acute illness--> a.m. fasting sugar was 145 this morning -Continue basal insulin at 10 units -SSI every 6 for now -Accu-Cheks as ordered HTN/HPL/CAD -Hold home atorvastatin -hold carvedilol -Hold home enalapril -Hold home Lasix Debility/nonambulatory at baseline/tibial plateau fracture -PT/OT following -Will likely need placement again at discharge Obesity -BMI 36.4 -Recommend weight loss -Complicates treatment, prognosis, outcomes DVT prophylaxis -Continue subcu heparin CODE STATUS -DNR CCA per discussion with family Charges/Coding Visit Charges Inpatient E&M: 77084 Subs Hosp L2
--- NOTE | 2023-12-30 08:29 | PCM.PN.SRG ---
Subjective Subjective Patient seen and examined during AM rounds. She is found resting in bed but easily arouses. She reports that her abdominal discomfort is improved. She is uncertain whether or not she had a bowel movement overnight. She complains of dry mouth and thirst. Objective Data Objective Data Vital Signs: Vital Signs Temp Pulse Resp BP Pulse Ox O2 Del Method O2 Flow Rate 98.0 F 63 14 142/54 H 92 Room Air 1 12/30/23 06:00 12/30/23 07:00 12/30/23 07:00 12/30/23 07:00 12/30/23 07:00 12/30/23 07:00 12/30/23 06:00 Oxygen Flow Rate (L/min) 1 Oxygen Delivery Method Room Air Weight: 186 lb 4.65 oz Body Mass Index (BMI) 36.6 Intake & Output: Intake and Output for Last 24 Hours 12/28/23 12/29/23 12/30/23 23:59 23:59 23:59 Intake Total 4369.72 / 4388.52 768.16 / 773.76 44.8 / 44.8 Output Total 635 / 635 620 / 620 595 / 595 Balance 3734.72 / 3753.52 148.16 / 153.76 -550.2 / -550.2 Lab / Micro Data 12/30/23 03:40 12/30/23 03:40 Labs: Laboratory Results - last 24 hr 12/29/23 07:59: POC Glucose 149 H 12/29/23 11:09: POC Glucose 146 H 12/29/23 16:07: POC Glucose 138 H 12/29/23 20:17: POC Glucose 165 H 12/30/23 03:40: WBC 15.6 H, RBC 3.30 L, Hgb 9.4 L, Hct 29.1 L, MCV 88.2, MCH 28.5, MCHC 32.3, RDW Std Deviation 47.1 H, RDW Coeff of Yasir 14.6, Plt Count 255, MPV 10.8, Immature Gran % (Auto) 0.700, Neut % (Auto) 86.1 H, Lymph % (Auto) 5.8 L, [place] % (Auto) 6.3, Eos % (Auto) 0.8, Baso % (Auto) 0.3, Absolute Neuts (auto) 13.5 H, Absolute Lymphs (auto) 0.91, Nucleated RBC % 0, Sodium 141, Potassium 3.6, Chloride 110 H, Carbon Dioxide 21.0, Anion Gap 10, BUN 41 H, Creatinine 1.57 H, Estim Creat Clear Calc 24.54, Est GFR (MDRD) Af Amer 40 L, Est GFR (MDRD) Non-Af 33 L, BUN/Creatinine Ratio 26.1 H, Glucose 145 H, Calcium 8.3 L, Magnesium 2.9 H, Total Bilirubin 0.50, AST 19, ALT 21, Alkaline Phosphatase 88, Total Protein 5.5 L, Albumin 2.2 L, Globulin 3.3, Albumin/Globulin Ratio 0.7 L Micro: Microbiology 12/27/23 20:07 Blood Culture (Wb) - Left Hand Blood Culture - Preliminary No growth in 48 hours. 12/28/23 11:50 Iglesia Henry Drainage Gram Stain - Final 12/28/23 11:50 Iglesia Henry Drainage Wound Culture - Preliminary GNR lactose music manager 12/28/23 11:50 Iglesia Hnery Drainage Anaerobic Culture - Preliminary Physical Exam Const no apparent distress Constitutional Narrative: Oriented to person and place Resp normal respiratory effort Resp Narrative: Nasal cannula in place GI GI Narrative: Somewhat improved abdominal distention, soft, decreased tenderness to palpation?particularly about cholecystostomy tube drain site in the right upper quadrant. Here the drain continues to actively drain thin brown?yellow bile. There are no kinks in the catheter and it remains affixed to the patient's abdominal wall with silk suture. Assessment & Plan Assessment/Plan (1) Acute calculous cholecystitis: PLAN: Patient is hospital day 4 for admission for acute cholecystitis. Yesterday her cholecystostomy tube was interrogated for minimal drainage and some clot in the tubing. I found the tubing to be kinked at the site of the patient's dressing so dressing was taken down and the tubing was secured at the skin with a suture. Today the drain appears to be well-functioning and patient reports improvements of her abdominal discomfort. She is uncertain as to whether or not she has had any further bowel activity but from the charting it does not appear that the main impaction of stool has moved through the lower GI tract. Pressor support was required at a lower dose overnight but patient's maps are improved today. Patient has pending a modified barium swallow with speech therapy today. Would recommend resuming maximum diet allowed by this swallow evaluation following this study. Kidney function is improved and patient continues to make clear urine. ? Follow-up speech therapy recommendations for diet and advance as tolerated ? Continue bowel regimen ? Continue vigilance around patient's cholecystostomy tube both with patient positioning to avoid accidental dislodgment and with simple monitoring for ongoing drainage Charges/Coding Visit Charges Inpatient E&M: 08916 [facility] Hosp L2
[2023-12-30] MEDS: Midodrine HCl 5 MG Tablet 10 MG PO ×3 (08:41→16:29)
[2023-12-30] MEDS: Menthol/Lanolin/Calamine/Znox 113 GM Tube 1 APPLIC TOPICAL ×2 (08:43→20:22)
[2023-12-30] MEDS: Nystatin Ointment 1 APPLIC TOPICAL (08:44)
[2023-12-30] MEDS: oxyCODONE 5 MG Tablet PO ×2 (08:49→13:28)
[2023-12-30] MEDS: Bisacodyl 10 MG Suppository RC (08:51)
--- NOTE | 2023-12-30 09:38 | ST.MBS ---
Modified Barium Swallow Patient Information Study Date: 12/30/23 Study Time: 13:00 Direct Billable Minutes: 95 Total Minutes procedure & reportin Diagnosis: Dysphagia R13.10, COPD J44.9 Referring Physician: Gabino Mercado Reason for Referral: Objectively assess swallow function, assess risk for aspiration, and determine recommendations for least restrictive diet textures and compensatory strategies to improve safety of swallow. Medical History: PMH: Anxiety, Asthma, Chest pain, CHF, COPD, Coronary artery disease, DVT, Former smoker, HTN, Osteoporosis, Hx of CVA, HLD, chronic Left hemiparesis, Hx of of ventral hernia, GERD, recent Hx of esophageal dilation d/t achalasia, recent Hx of a tibial plateau/bimalleolar fracture Patient presented to [facility] ED on 12/27/2023 with nausea and vomiting that started late afternoon on 12/27/2023 with intermittent abdominal pain. Pt is reported to have poor memory for the past ~4 months. D/t pt not being a reliable historian, medical information was gathered from charts and medical staff. Pt's abdomen and pelvis CT scan was positive for a distended gallbladder with cholelithiasis and pericholecystic fluid consistent with Acute Calculous Cholecystitis. Her abdomen and pelvis CT also revealed fecal retention with distention of the rectum complicated by severe leukocytosis complicated by acute delirium d/t suspected chronic dementia. Pt was admitted to the general medical floor 3 and had cholecystostomy tube placed 12/28/2023. Pt later admitted to ICU for further evaluation. ST was consulted for swallowing difficulty. BSE completed 12/29/23 with recommendation for NPO with sips and chips with plan for MBSS today. Per night assistant RN, patient was not tolerating sips and chips - she was made strict NPO prior to MBSS. Current Diet Ordered: NPO Mental Status: WNL Respiratory Status: Oxygenating on 2L/M nasal cannula Penetration-Aspiration Scale Penetration-Aspiration Scale: OBJECTIVE ASSESSMENT OF SWALLOW FUNCTION (QUANTITATIVE ? PER TRIAL): PENETRATION / ASPIRATION SCALE (CARRASCO): 1 = does not enter airway 2 = enters airway/above vocal folds/ejected 3 = enters airway/above vocal folds/not ejected 4 = enters airway/contacts vocal folds/ejected 5 = enters airway/contacts vocal folds/not ejected 6 = enters airway/below vocal folds/ejected 7 = enters airway/below vocal folds/not ejected despite effort 8 = enters airway/below vocal folds/no effort VIDEOFLOROSCOPIC SCALE SCORE (CARRASCO): Grade I = aspiration of material that has penetrated into the laryngeal vestibule, intact cough reflex Grade II = aspiration < 10 % of the bolus, intact cough reflex Grade III = aspiration of < 10 % of the bolus, reduced cough reflex or aspiration of > 10 % of the bolus, intact cough reflex Grade IV = aspiration of > 10 % of the bolus, reduced cough reflex Penetration-Aspiration Scale Score Thin Liquid via teaspoon: Result: 4= enters airway/contacts vocal folds/ejected Thin Liquid via teaspoon Trial 2: Result: 5= enters airways/contacts vocal folds/not ejected Thin Liquid via small single sip: cup: Result: 3= enters airways/above vocal folds/not ejected [place] Thick Liquid via small single sip: cup: Result: 2= enter airway/above vocal folds/ejected Pudding via teaspoon: Result: 5= enters airways/contacts vocal folds/not ejected Comment: Esophageal screen - Pudding retention in the upper esophagus. 1/4 Cookie: Result: 1= does not enter airway Thin Liquid via single sip: straw: Result: 2= enter airway/above vocal folds/ejected Comment: Cued cough and re-swallow. Cough was somewhat effective; however, patient was unable to re-swallow. Thin Liquid via single sip: straw Effortful swallow: Result: 3= enters airways/above vocal folds/not ejected Oral Phase Labial Seal: Escape progressing to mid-chin Tongue Control During Bolus Hold: Posterior escape of less than half of bolus Bolus Preparation/Mastication: Disorganized chewing/mashing with solid pieces of bolus unchewed (very prolonged mastication with >1/4 cookie) Bolus Transport/Lingual Motion: Repetitive/disorganized tongue motion Oral Residue: Residue collection on oral structures Pharyngeal Phase Initiation of Pharyngeal Swallow: Bolus head in pyriforms Soft Palate Elevation: Trace column of contrast/air between soft palate and pharyngeal wall Laryngeal Elevation: Partial superior movement thyroid cart/partial apprx aryt-epig petiole Anterior Hyoid Excursion: Partial anterior movement Epiglottic Movement: Partial inversion Laryngeal Vestibule Closure at Height of Swallow: Incomplete; narrow column of air/contrast in laryngeal vestibule Pharyngeal Stripping Wave: Present - diminished Pharyngoesophageal Segment Opening: Parital distension and partial duration; parital obstruction of flow Tongue Base Retraction: Wide column of contrast between tongue base & post. pharyngeal wall Pharyngeal Residue: Collection of residue within or on pharyngeal structures Esophageal Phase Esophageal Clearance: Esophageal retention Diagnosis/Impression Diagnosis: Moderate oropharyngeal dysphagia R13.12 Impression: The oral phase is primarily marked by... -Decreased labial closure evidenced by anterior loss escaping beyond mid-chin.? -Decreased bolus control with <1/2 of the bolus spilling posteriorly to the pyriforms prior to swallow onset observed with thin liquids especially. -Repetitive and disorganized tongue motion for A-P transport. -Mild oral residue after the swallow with large sips, which mostly cleared with independent initiation of a second swallow as needed. -Disorganized, slowed, but complete mastication of cookie trial. ? The pharyngeal phase is primarily marked by... -Decreased airway closure during the swallow due to mildly decreased anterior hyoid excursion, partial epiglottic inversion, and mildly decreased laryngeal elevation. -Moderately decreased tongue base retraction, mildly decreased UES opening/duration, and mildly decreased pharyngeal stripping wave with resulting mild-moderate pharyngeal residues after the swallow. -Consistent laryngeal penetration across thin and nectar thick liquid consistencies. Thin liquid trials did not reliably eject from the laryngeal vestibule after the swallow. Use of effortful swallow with thin liquids by cup was effective in decreasing the residues remaining in the laryngeal vestibule after the swallow. Use of cough and re-swallow was somewhat effective in decreasing residues remaining in the laryngeal vestibule to trace amounts. -Cannot definitively rule out aspiration for all of the above mentioned trials due to patient's body habitus. ? The esophageal phase is primarily marked by... -Mild esophageal retention of pudding in upper esophagus. Recommendations Diet: Puree Textures and Thin Liquids Compensatory Strategies: Small Bites, Small Sips (Effortful swallows), Slow Rate, Alternate bites/solids and sips/liquids, Sitting upright and Remain sitting upright for 30 minutes after PO intake Supervision: 1:1 Close Supervision (Ok for ice chips after oral care unsupervised) Recommend Repeat Modified Barium Swallow: TBD Need for Skilled Speech Therapy Services: Yes Comment: -Train the patient in use of strategies to decrease risk for aspiration. -Ongoing assessment of diet tolerance of recommended textures. -Train the patient oropharyngeal exercise program to improve bolus control, airway closure, and pharyngeal motility (lingual resistance, CTAR, Dara, Effortful). Education Completed: 1. Described result of evaluation. and 2. Pt understands evaluation & agrees with goals and treatment plan. Status Active ST Patient: Active Contact Information [facility] Speech Therapy:: Holli Mendez M.A. [facility] APPLICATION ARCHITECT? Speech-Language Pathologist?? [place] [id number]?? [place] [address]?? [email or web address]?? [phone]
[2023-12-30] MEDS: Pantoprazole Sodium 40 MG in 0.9% Normal Saline (100mL MB+) 100 ML 330 MG IV (09:39)
[2023-12-30] MEDS: Meropenem 500 MG in 0.9% Normal Saline (50mL MB+) 50 ML 100 MG IV ×2 (10:45→20:21)
[2023-12-30] MEDS: 0.9% Saline Lock 10 ML Syringe IV (10:52)
[2023-12-30 12:56] LABS: Pathologist Review Reviewed
[2023-12-30 12:57] LABS: Bedside Glucose 166 mg/dL (74-106)
[2023-12-30 12:59] LABS: Pathologist Review Reviewed
[2023-12-30] MEDS: Insulin Lispro 100 UNIT/ML INSULN.PEN SC ×2 (13:27→20:24)
--- NOTE | 2023-12-30 16:45 | RAD_ITS ---
STUDY: X-RAY - ABDOMEN/PELVIS REASON FOR EXAM: Female, 88 years old. Abd distention/constipation TECHNIQUE: Single AP view of the abdomen / pelvis. COMPARISON: CT scan 12/28/2023. FINDINGS: Normal visualized lung bases. Stable right mid abdominal percutaneous drain. Contrast seen in the GI tract from the stomach through the rectosigmoid with no dilated loops of bowel or evidence for obstruction. The visualized liver, spleen and kidneys are grossly normal in size and morphology. Normal soft tissue structures. Normal visualized osseous structures. RAD/Abdomen Single View IMPRESSION: No gross acute abnormality. No dilated loops of bowel or evidence for obstruction. Electronically Signed: Jared More MD at 18:08 EDT ,
[2023-12-30 16:49] LABS: Bedside Glucose 148 mg/dL (74-106)
[2023-12-30] MEDS: 0.9% Normal Saline (250mL Bag) 250 ML 15 ML IV (18:07)
[2023-12-30] MEDS: RisperiDONE 0.5 MG Tablet PO (20:22)
[2023-12-30 20:45] LABS: Bedside Glucose 152 mg/dL (74-106)
[2023-12-31] VITALS (22 sets, daily range): BP systolic 99–161; BP diastolic 45–75; PULSE 52–73; RESP 12–18; TEMP 36.1–36.9; O2SAT 93–100; BMI 36.1
[2023-12-31 03:36] LABS: Absolute Lymphocyte Count 1.12 X10^3/uL (0.83-4.51); Absolute Neutrophil Count 7.8 X10^3/uL (2.0-7.7); Basophil# 0.02 X10^3/uL; Basophil% 0.2 % (0-1); Eosinophil# 0.26 X10^3/uL; Eosinophils% 2.6 % (0-5); Hematocrit 27.4 % (37-47); Hemoglobin 8.9 g/dL (12.0-15.0); Lymphocyte # 1.12 X10^3/ul (0.83-4.51); Lymphocyte % 11.4 % (19-41); Mean Corp Hgb Conc 32.5 g/dL (32-36); Mean Corpuscular Hgb 28.5 pg (27.0-32.0); Mean Corpuscular Volume 87.8 fL (81-99); Mean Platelet Vol. 10.5 fl (6.2-12.0); Monocyte# 0.63 X10^3/uL; Monocyte% 6.4 % (0-10); NRBC Flagged by Analyzer 0 % (0-5); Neutrophil # 7.76 X10^3/uL (2.7-7.7); Neutrophil % 79.1 % (47-70); Platelet Count 233 K/mm3 (150-450); RBC Distribution Width CV 14.5 % (11.6-14.6); RBC Distribution Width SD 46.5 fl (35.1-43.9); Red Blood Count 3.12 M/mm3 (4.2-5.4); White Blood Count 9.8 K/mm3 (4.4-11.0)
[2023-12-31 03:55] LABS: ALB/GLOB Ratio 0.7 RATIO (0.9-2.4); AST(SGOT) 14 U/L (15-37); Alanine Aminotransfer ALT/SGPT 17 U/L (13-56); Albumin, Serum 2.1 g/dL (3.2-5.0); Alkaline Phosphatase 74 U/L (45-117); Anion Gap 5 (5-15); BUN 40 mg/dL (7-18); BUN/Creat Ratio 35.4 RATIO (10-20); Calcium,Total 8.2 mg/dL (8.5-10.1); Chloride 110 mmol/L (98-107); Creatinine, Serum 1.13 mg/dL (0.55-1.02); EST Glomerular Filtration Rate 48 mL/min (>60); Est Glom Filt Rate - Afr Amer 59 mL/min (>60); Estimated Creatinine Clearance 33.83 ml/min; Globulin 3.1 g/dL (2.2-4.2); Glucose 119 mg/dL (74-106); Magnesium 2.7 mg/dL (1.6-2.6); Potassium 3.3 mmol/L (3.5-5.1); Protein, Total 5.2 g/dL (6.4-8.2); Sodium Level 140 mmol/L (136-145)
[2023-12-31] MEDS: Heparin Injection (Vial) 5,000 UNIT/ML VIAL 5000 UNIT SC ×3 (05:07→21:31)
[2023-12-31 06:44] LABS: Bedside Glucose 106 mg/dL (74-106)
[2023-12-31] MEDS: Budesonide Respules 0.5 MG/2 ML AMPUL.NEB. INHALATION ×2 (07:09→20:25)
[2023-12-31] MEDS: Albuterol 2.5 MG/3 ML VIAL.NEB. INHALATION ×2 (07:09→13:47)
--- NOTE | 2023-12-31 09:59 | PCM.PN.TICU ---
Objective Data Objective Data Vital Signs: Vital Signs Last response Temperature 36.2 C L 12/31/23 07:00 Temperature Source Core 12/31/23 07:00 Pulse Rate 60 12/31/23 07:09 Pulse Strength Weak (1+) 12/30/23 19:48 Respiratory Rate 18 12/31/23 07:09 Respiratory Effort Normal, Non-Labored 12/31/23 03:35 Respiratory Depth Normal 12/31/23 03:35 Respiratory Pattern Normal 12/31/23 03:35 Blood Pressure 120/55 L 12/31/23 07:00 Blood Pressure Mean 76 12/31/23 07:00 Blood Pressure Source Monitor 12/31/23 07:00 Blood Pressure Position Semi-Fowlers 12/31/23 07:00 Blood Pressure Location Right Arm 12/31/23 07:00 Pulse Ox 96 12/31/23 07:09 Oxygen Delivery Method Nasal Cannula 12/31/23 07:09 Oxygen Flow Rate (L/min) 1 12/31/23 07:09 I&O: I&O Last 24 Hours 12/30/23 12/30/23 12/31/23 11:59 23:59 11:59 Intake Total 340.96 / 880.96 540 / 880.96 120 / 120 Output Total 880 / 1395 515 / 1395 480 / 480 Balance -539.04 / -514.04 25 / -514.04 -360 / -360 I&O: Total Stay 12/27/23 17:02 thru 12/31/23 08:00 Intake Total 6398.84 Output Total 3130 Balance 3268.84 Current Meds Ordered / Administered: Current meds ordered / Administered Generic Name Dose Route Start Last Admin Trade Name Freq PRN Reason Stop Dose Admin Albuterol Sulfate 2.5 mg 12/27/23 22:16 Albuterol 2.5 Mg/3 Ml Vial.Neb. INHALATION Q4H PRN PRN shortness of breath or wheezing Albuterol Sulfate 2.5 mg 12/27/23 22:30 12/31/23 07:09 Albuterol 2.5 Mg/3 Ml Vial.Neb. INHALATION 2.5 mg Q6HWA.RT DAVE Administration Bisacodyl 10 mg 12/29/23 10:00 12/30/23 08:51 Bisacodyl 10 Mg Suppository RC 10 mg DAILY DAVE Administration Budesonide 0.5 mg 12/27/23 22:30 12/31/23 07:09 Budesonide Respules 0.5 Mg/2 Ml Ampul.Neb. INHALATION 0.5 mg Q12H.RT DAVE Administration Calamine/Phenol 1 applic 12/28/23 10:00 12/30/23 20:22 Menthol/Lanolin/Calamine/Znox 113 Gm Tube TOPICAL 1 applic BID DAVE Administration Protocol Dextrose 0 gm 12/27/23 22:06 Dextrose 50%-Water 25 Gm/50 Ml Disp.Syrin IV X1 PRN HYPOGLYCEMIA Protocol Glucagon 1 mg 12/27/23 22:06 Glucagon 1 Mg/Ml Syringe IM X1 PRN HYPOGLYCEMIA Heparin Sodium (Porcine) 5,000 unit 12/27/23 22:06 12/31/23 05:07 Heparin Injection (Vial) 5,000 Unit/Ml Vial SC 5,000 unit Q8 DAVE Administration Pantoprazole Sodium 40 mg/ 110 mls @ 330 mls/hr 12/28/23 10:00 12/30/23 10:59 Sodium Chloride IV Infused Q24 DAVE Infusion Sodium Chloride 1,000 mls @ 50 mls/hr 12/27/23 22:06 12/28/23 13:00 IV Infused .Q20H DAVE Infusion Sodium Chloride 250 mls @ 15 mls/hr 12/27/23 22:07 IV .[id number] PRN Additional IVPB Infusion Sodium Chloride 250 mls @ 15 mls/hr 12/27/23 22:07 12/30/23 18:07 IV 15 mls/hr .[id number] PRN Administration Saline Flush Norepinephrine Bitartrate 8 mg 250 mls @ 9.375 mls/hr 12/28/23 15:15 12/30/23 16:52 / Sodium Chloride CONT INF Not Given .[id number] DAVE Protocol 5 MCG/MIN Meropenem 500 mg/ Sodium 60 mls @ 100 mls/hr 12/29/23 10:00 12/30/23 21:02 Chloride IV Infused Q12 DAVE Infusion Insulin Glargine 10 unit 12/29/23 17:00 12/30/23 16:29 Insulin Glargine-Yfgn 100 Unit/Ml Pen SC Not Given [facility] Insulin Human Lispro 0 unit 12/27/23 22:06 12/31/23 06:25 Insulin Lispro 100 Unit/Ml Insuln.Pen SC Not Given ACHS [facility] Protocol Midodrine 10 mg 12/29/23 17:00 12/30/23 16:29 Midodrine Hcl 5 Mg Tablet PO 10 mg TIDCM DAVE Administration Multivitamins 1 tablet 12/28/23 08:00 12/30/23 07:48 Multivitamins,Therapeutic Tablet PO [facility] Naloxone HCl 0.02 mg 12/28/23 12:30 12/28/23 12:38 Naloxone 0.4 Mg/Ml Syringe IV 0.02 mg Q2M PRN Administration Respirations <10 per minute Nystatin 1 applic 12/30/23 14:55 Nystatin Ointment TOPICAL DAILY PRN RASH/TOPICAL IRRITATION Ondansetron HCl 4 mg 12/27/23 22:06 Ondansetron 4 Mg/2 Ml Vial IV Q8H PRN PRN NAUSEA/VOMITING Oxycodone HCl 5 mg 12/29/23 11:17 12/30/23 13:28 Oxycodone 5 Mg Tablet PO 5 mg Q4H PRN PRN Administration Pain Score 6-10 Risperidone 0.5 mg 12/28/23 22:00 12/30/23 20:22 Risperidone 0.5 Mg Tablet PO 0.5 mg QHS [facility] Administration Protocol Sodium Chloride 10 - 40 ml 12/27/23 22:07 12/30/23 10:52 0.9% Saline Lock 10 Ml Syringe IV 40 ml UD PRN Administration SALINE FLUSH Lab / Micro Data 12/31/23 03:25 12/31/23 03:25 Labs: Laboratory Results - last 24 hr 12/27/23 17:31: Diff Path Review Reviewed 12/28/23 07:10: Diff Path Review Reviewed 12/30/23 12:40: POC Glucose 166 H 12/30/23 16:27: POC Glucose 148 H 12/30/23 20:24: POC Glucose 152 H 12/31/23 03:25: WBC 9.8, RBC 3.12 L, Hgb 8.9 L, Hct 27.4 L, MCV 87.8, MCH 28.5, MCHC 32.5, RDW Std Deviation 46.5 H, RDW Coeff of Yasir 14.5, Plt Count 233, MPV 10.5, Immature Gran % (Auto) 0.300, Neut % (Auto) 79.1 H, Lymph % (Auto) 11.4 L, [place] % (Auto) 6.4, Eos % (Auto) 2.6, Baso % (Auto) 0.2, Absolute Neuts (auto) 7.8 H, Absolute Lymphs (auto) 1.12, Nucleated RBC % 0, Sodium 140, Potassium 3.3 L, Chloride 110 H, Carbon Dioxide 25.0, Anion Gap 5, BUN 40 H, Creatinine 1.13 H, Estim Creat Clear Calc 33.83, Est GFR (MDRD) Af Amer 59 L, Est GFR (MDRD) Non-Af 48 L, BUN/Creatinine Ratio 35.4 H, Glucose 119 H, Calcium 8.2 L, Phosphorus 4.0, Magnesium 2.7 H, Total Bilirubin 0.40, AST 14 L, ALT 17, Alkaline Phosphatase 74, Total Protein 5.2 L, Albumin 2.1 L, Globulin 3.1, Albumin/Globulin Ratio 0.7 L 12/31/23 06:24: POC Glucose 106 Micro: Microbiology 12/28/23 11:50 Iglesia Henry Drainage Gram Stain - Final 12/28/23 11:50 Iglesia Henry Drainage Wound Culture - Final Enterobacter cloacae complex 12/28/23 11:50 Iglesia Henry Drainage Anaerobic Culture - Final No anaerobic bacteria isolated. 12/27/23 20:07 Blood Culture (Wb) - Left Hand Blood Culture - Preliminary No growth in 48 hours. Imaging Radiology Impression KUB X-Ray 12/30/23 16:45 IMPRESSION: No gross acute abnormality. No dilated loops of bowel or evidence for obstruction. Electronically Signed: Jared More MD at 18:08 EDT , Assessment and Plan . Assessment and plan: No acute events. BP 160s this AM. Doing well and denies N/V/abd pain. C-tube still draining well. Nonambulatory at baseline. PE: General: Well developed, obese chronically ill appearing female in no distress HEENT: anicteric Sclera, nl nose; supple neck, no masses Cardiovascular: S1/S2; No rubs, gallops; no displaced PM Respiratory: diminished; no crackles, wheezes, or rhonchi Abdominal: Non-tender; Non distended; hypoBS x 4; No Hepatosplenomegaly Extremities: Warm, well perfused; No clubbing, cyanosis; LLE heavy dressing/brace Skin: intact, no focal rashes Neurological: awake/alert; no new focal deficits appreciated Psych: pleasant affect; baseline dementia A/P: #Septic shock #Acute calculous cholecystitis #Acute encephalopathy #Dementia #Chronic bedbound status #Diabetes mellitus type 2/hypertension/hyperlipidemia/CAD/debility/recent falls/fracture/CKD stage IIIb -On/off low dose pressors after c-tube placement but hemodynamics appear much more stable now; can hold midodrine given AM vitals -Continue empiric antibiotics pending cultures; surgery on board & managing C-tube; pt is not surgical candidate -Wean oxygen and pressors as tolerated --> on 1L with sats 100% while awake but reportedly desats into low 80s/high 70s while sleeping; outpatient sleep study if appropriate otherwise wean to keep sats ~90-92%, encourage freq IS use, mobilize to chair or chair-like position in bed to minimize atelectasis/PNA risks -SP swallow study; diet per ST recommendations; chronic achalasia at baseline and will remain high risk for aspiration -Ortho recommendations re: LLE fractures -Insulin as needed for BG control -Strict I/Os Pt can be downgraded from my stand point. Will sign off but available as needed. The entirety of this encounter was completed via telemedicine.
[2023-12-31] MEDS: Multivitamins,Therapeutic Tablet 1 TABLET PO (10:41)
[2023-12-31] MEDS: Bisacodyl 10 MG Suppository RC (10:42)
[2023-12-31] MEDS: Pantoprazole Sodium 40 MG in 0.9% Normal Saline (100mL MB+) 100 ML 330 MG IV (11:00)
[2023-12-31] MEDS: Meropenem 500 MG in 0.9% Normal Saline (50mL MB+) 50 ML 100 MG IV ×2 (11:00→21:22)
[2023-12-31] MEDS: oxyCODONE 5 MG Tablet PO ×2 (11:07→22:27)
[2023-12-31] MEDS: Menthol/Lanolin/Calamine/Znox 113 GM Tube 1 APPLIC TOPICAL ×2 (13:08→21:32)
[2023-12-31] MEDS: Insulin Lispro 100 UNIT/ML INSULN.PEN SC ×2 (13:09→21:31)
--- NOTE | 2023-12-31 13:44 | PN.SURG_ITS ---
Subjective Subjective Patient seen and examined during AM rounds. She is found sitting upright in bed. She does not initially turn her head when I arrived to the room but does respond with addressed directly. Nursing and denies any events overnight. Objective Data Objective Data Vital Signs: Vital Signs Temp Pulse Resp BP Pulse Ox O2 Del Method O2 Flow Rate 97.2 F L 60 18 120/55 L 99 Nasal Cannula 1 12/31/23 07:00 12/31/23 07:09 12/31/23 07:09 12/31/23 07:00 12/31/23 12:50 12/31/23 07:09 12/31/23 07:09 Oxygen Flow Rate (L/min) 1 Oxygen Delivery Method Nasal Cannula Weight: 183 lb 13.848 oz Body Mass Index (BMI) 36.1 Intake & Output: Intake and Output for Last 24 Hours 12/29/23 12/30/23 12/31/23 23:59 23:59 23:59 Intake Total 768.16 / 773.76 880.96 / 880.96 120 / 120 Output Total 620 / 620 1395 / 1395 480 / 480 Balance 148.16 / 153.76 -514.04 / -514.04 -360 / -360 Lab / Micro Data 12/31/23 03:25 12/31/23 03:25 Labs: Laboratory Results - last 24 hr 12/30/23 16:27: POC Glucose 148 H 12/30/23 20:24: POC Glucose 152 H 12/31/23 03:25: WBC 9.8, RBC 3.12 L, Hgb 8.9 L, Hct 27.4 L, MCV 87.8, MCH 28.5, MCHC 32.5, RDW Std Deviation 46.5 H, RDW Coeff of Yasir 14.5, Plt Count 233, MPV 10.5, Immature Gran % (Auto) 0.300, Neut % (Auto) 79.1 H, Lymph % (Auto) 11.4 L, [place] % (Auto) 6.4, Eos % (Auto) 2.6, Baso % (Auto) 0.2, Absolute Neuts (auto) 7.8 H, Absolute Lymphs (auto) 1.12, Nucleated RBC % 0, Sodium 140, Potassium 3.3 L, Chloride 110 H, Carbon Dioxide 25.0, Anion Gap 5, BUN 40 H, Creatinine 1.13 H , Estim Creat Clear Calc 33.83, Est GFR (MDRD) Af Amer 59 L, Est GFR (MDRD) Non- Af 48 L, BUN/Creatinine Ratio 35.4 H, Glucose 119 H, Calcium 8.2 L, Phosphorus 4.0, Magnesium 2.7 H, Total Bilirubin 0.40, AST 14 L, ALT 17, Alkaline Phosphatase 74, Total Protein 5.2 L, Albumin 2.1 L, Globulin 3.1, Albumin/Globulin Ratio 0.7 L 12/31/23 06:24: POC Glucose 106 Micro: Microbiology 12/28/23 11:50 Iglesia Henry Drainage Gram Stain - Final 12/28/23 11:50 Iglesia Henry Drainage Wound Culture - Final Enterobacter cloacae complex 12/28/23 11:50 Iglesia Henry Drainage Anaerobic Culture - Final No anaerobic bacteria isolated. 12/27/23 20:07 Blood Culture (Wb) - Left Hand Blood Culture - Preliminary No growth in 48 hours. Radiography Diagnostic Testing: Radiology Impression KUB X-Ray 12/30/23 16:45 IMPRESSION: No gross acute abnormality. No dilated loops of bowel or evidence for obstruction. Electronically Signed: Jared More MD at 18:08 EDT , Physical Exam Const Constitutional Narrative: Oriented to person and place Resp normal respiratory effort Resp Narrative: Room air GI GI Narrative: Mildly improved abdominal distention and decreased tenderness on exam. There is no significant tenderness today about patient's cholecystostomy tube which is draining clear bile. Unfortunately there was some kinking noted in the tubing given its present configuration Assessment & Plan Assessment/Plan (1) Acute calculous cholecystitis: PLAN: Patient is hospital day 5 for admission for acute cholecystitis. Today patient's cholecystostomy tube remains draining well apart from having to kristen ect some kinking of the tubing. Her abdominal exam is much improved about this site. Yesterday nursing noted several additional bowel movements and patient's abdominal distention is improved today. She tried to objectively follow this KUB was obtained yesterday without significant finding of stool impaction. Pressor support was weaned yesterday morning and has not been required since. Patient is making slow progress with her diet as she was initially reluctant to eat for nursing. Kidney function is improved and patient continues to make clear urine. ? Continue vigilance around patient's cholecystostomy tube both with patient positioning to avoid accidental dislodgment and with simple monitoring for ongoing drainage Remainder of care per primary team
[2023-12-31 15:26] LABS: Bedside Glucose 160 mg/dL (74-106)
--- NOTE | 2023-12-31 15:55 | PN.HOSP_ITS ---
Reason for Visit Reason for Visit: Diagnoses Sepsis, unspecified organism (12/27/23) Elevated white blood cell count, unspecified (12/27/23) Hypomagnesemia (12/27/23) Calculus of gallbladder with acute cholecystitis without obstruction (12/27/23) Nausea with vomiting, unspecified (12/27/23) Dysphagia, unspecified (12/27/23) Transient alteration of awareness (12/27/23) Altered mental status, unspecified (12/27/23) Severe sepsis with septic shock (12/27/23) Displaced bicondylar fracture of left tibia, initial encounter for closed fracture (12/27/23) Displaced bicondylar fracture of left tibia, subsequent encounter for closed fracture with delayed healing (12/27/23) Other fracture of upper and lower end of left fibula, initial encounter for closed fracture (12/27/23) Displaced bimalleolar fracture of left lower leg, initial encounter for closed fracture (12/27/23) Displaced pilon fracture of left tibia, initial encounter for closed fracture (12/27/23) Subjective Subjective Patient was seen and examined today, she is currently on room air, I changed her status to [employer] 3 9 telemetry today. I talked briefly with her today who was present at the time of my examination. It appears the patient saw Dr. Toledo in November for her left ankle fracture, I will check on her follow-up visit at his office when she goes back to the extended care facility this coming week. I talked briefly with Dr. Herrera concerning her medical status, she appears to be doing well and has no abdominal discomfort at the time my examination. Objective Data Objective Data Vital Signs: Vital Signs Temp Pulse Resp BP Pulse Ox O2 Del Method O2 Flow Rate 97.2 F L 61 17 120/55 L 99 Room Air 1 12/31/23 07:00 12/31/23 13:49 12/31/23 13:49 12/31/23 07:00 12/31/23 13:49 12/31/23 13:49 12/31/23 07:09 Oxygen Flow Rate (L/min) 1 Oxygen Delivery Method Room Air Weight: 83.4 kg Body Mass Index (BMI) 36.1 Intake & Output: Intake and Output for Last 24 Hours 12/29/23 12/30/23 12/31/23 23:59 23:59 23:59 Intake Total 768.16 / 773.76 880.96 / 880.96 120 / 120 Output Total 620 / 620 1395 / 1395 480 / 480 Balance 148.16 / 153.76 -514.04 / -514.04 -360 / -360 Lab / Micro Data 12/31/23 03:25 12/31/23 03:25 Labs: Laboratory Results - last 24 hr 12/30/23 16:27: POC Glucose 148 H 12/30/23 20:24: POC Glucose 152 H 12/31/23 03:25: WBC 9.8, RBC 3.12 L, Hgb 8.9 L, Hct 27.4 L, MCV 87.8, MCH 28.5, MCHC 32.5, RDW Std Deviation 46.5 H, RDW Coeff of Yasir 14.5, Plt Count 233, MPV 10.5, Immature Gran % (Auto) 0.300, Neut % (Auto) 79.1 H, Lymph % (Auto) 11.4 L, [place] % (Auto) 6.4, Eos % (Auto) 2.6, Baso % (Auto) 0.2, Absolute Neuts (auto) 7.8 H, Absolute Lymphs (auto) 1.12, Nucleated RBC % 0, Sodium 140, Potassium 3.3 L, Chloride 110 H, Carbon Dioxide 25.0, Anion Gap 5, BUN 40 H, Creatinine 1.13 H , Estim Creat Clear Calc 33.83, Est GFR (MDRD) Af Amer 59 L, Est GFR (MDRD) Non- Af 48 L, BUN/Creatinine Ratio 35.4 H, Glucose 119 H, Calcium 8.2 L, Phosphorus 4.0, Magnesium 2.7 H, Total Bilirubin 0.40, AST 14 L, ALT 17, Alkaline Phosphatase 74, Total Protein 5.2 L, Albumin 2.1 L, Globulin 3.1, Albumin/Globulin Ratio 0.7 L 12/31/23 06:24: POC Glucose 106 12/31/23 13:06: POC Glucose 160 H Micro: Microbiology 12/28/23 11:50 Iglesia Henry Drainage Gram Stain - Final 12/28/23 11:50 [facility]les[facility] Henry Drainage Wound Culture - Final Enterobacter cloacae complex 12/28/23 11:50 Iglesia Henry Drainage Anaerobic Culture - Final No anaerobic bacteria isolated. 12/27/23 20:07 Blood Culture (Wb) - Left Hand Blood Culture - Preliminary No growth in 48 hours. Radiography Diagnostic Testing: Radiology Impression KUB X-Ray 12/30/23 16:45 IMPRESSION: No gross acute abnormality. No dilated loops of bowel or evidence for obstruction. Electronically Signed: Jared More MD at 18:08 EDT , Physical Exam Const alert, oriented x3 and no apparent distress General Appearance: cooperative, well kempt and well developed Orientation / Consciousness: awake, oriented to person, oriented to place and oriented to time HEENT normocephalic, head/scalp atraumatic and moist oral mucous membranes Eyes PERRL, EOMs intact bilaterally and conjunctivae normal Neck supple, no JVD, thyroid normal and no carotid bruits General: trachea midline Resp normal respiratory effort, no retractions and clear to auscultation bilaterally Auscultation: Negative for rales, rhonchi or wheezes Cardio regular rate, regular rhythm, S1 normal heart sound, S2 normal heart sound, no murmurs, no rub and no gallops GI normal to inspection, nondistended, normoactive bowel sounds, soft to palpation, non-tender and non-distended Extremity no clubbing, cyanosis or edema Skin no rashes or lesions noted General Skin Exam: no breakdown Neuro oriented x3, CN's II-XII intact bilaterally, moves all extremities, no focal motor deficits and no sensory deficits noted Sensorium / Orientation: awake and alert Speech: speech normal Psych affect normal Assessment & Plan Assessment/Plan (1) Septic shock: PLAN: Plan 1. Septic shock secondary to acute calculous cholecystitis-patient again has a cholecystostomy tube, she is no longer any pressors, continue present antibiotic coverage #2 acute calculous cholecystitis-surgery is participating in her care, continue present antibiotic coverage #3 recent tibial plateau fracture with bimalleolar fracture of the left ankle and closed fracture of the left fibula-treatment is nonsurgical at this point, nursing reported some abrasions underneath her leg immobilizer, I will have the wound nurse see the patient in consultation to examine these areas #4 generalized debility-patient will need to return to half-way facility at the conclusion of her hospitalization here #5 type 2 diabetes-patient's blood sugars will be monitored, sliding scale insulin will be administered as needed #6 essential hypertension-patient's blood pressure medications are being held at this time, blood pressure will be monitored and medicines may need to be started in the near future again #7 hyperlipidemia-patient will resume her atorvastatin Total clinical time spent by myself addressing the patient's medical issues, reviewing all of her data, and collaborating with patient's care team: 50 minutes Charges/Coding Visit Charges Inpatient E&M: 19380 Subs Hosp L3
[2023-12-31 17:23] LABS: Bedside Glucose 147 mg/dL (74-106)
[2023-12-31] MEDS: 0.9% Normal Saline (250mL Bag) 250 ML 15 ML IV (21:22)
[2023-12-31] MEDS: Atorvastatin Calcium 20 MG Tablet PO (21:31)
[2023-12-31] MEDS: RisperiDONE 0.5 MG Tablet PO (21:31)
[2023-12-31 22:22] LABS: Bedside Glucose 153 mg/dL (74-106)
[2024-01-01 01:00] VITALS: BP 143/65; PULSE 72; RESP 18; TEMP 36.6; O2SAT 97
[2024-01-01] MEDS: Heparin Injection (Vial) 5,000 UNIT/ML VIAL 5000 UNIT SC ×3 (06:15→21:20)
[2024-01-01 06:41] LABS: Bedside Glucose 120 mg/dL (74-106)
[2024-01-01 06:57] VITALS: PULSE 72; RESP 20; O2SAT 92
[2024-01-01] MEDS: Budesonide Respules 0.5 MG/2 ML AMPUL.NEB. INHALATION ×2 (06:57→20:12)
--- NOTE | 2024-01-01 09:09 | PCM.PN.SRG ---
Subjective Subjective Patient seen and examined during AM rounds. She is found sitting upright in bed. She greets me upon entry to the room, but states she knows only that she is in [facility] and is uncertain what led her to be here. She reports improvements in her abdominal discomfort. Objective Data Objective Data Vital Signs: Vital Signs Temp Pulse Resp BP Pulse Ox O2 Del Method O2 Flow Rate 97.8 F 72 20 H 143/65 H 92 Room Air 1 01/01/24 01:00 01/01/24 06:57 01/01/24 06:57 01/01/24 01:00 01/01/24 06:57 01/01/24 06:57 12/31/23 08:00 Oxygen Flow Rate (L/min) 1 Oxygen Delivery Method Room Air Weight: 183 lb 13.848 oz Body Mass Index (BMI) 36.1 Intake & Output: Intake and Output for Last 24 Hours 12/30/23 12/31/23 01/01/24 23:59 23:59 23:59 Intake Total 880.96 / 880.96 920 / 920 Output Total 1395 / 1395 710 / 760 80 / 80 Balance -514.04 / -514.04 210 / 160 -80 / -80 Lab / Micro Data 12/31/23 03:25 12/31/23 03:25 Labs: Laboratory Results - last 24 hr 12/31/23 13:06: POC Glucose 160 H 12/31/23 17:06: POC Glucose 147 H 12/31/23 21:30: POC Glucose 153 H 01/01/24 06:14: POC Glucose 120 H Micro: Microbiology 12/28/23 11:50 Iglesia Henry Drainage Gram Stain - Final 12/28/23 11:50 Iglesia Henry Drainage Wound Culture - Final Enterobacter cloacae complex 12/28/23 11:50 Igles[facility] Henry Drainage Anaerobic Culture - Final No anaerobic bacteria isolated. 12/27/23 20:07 Blood Culture (Wb) - Left Hand Blood Culture - Preliminary No growth in 48 hours. Physical Exam Const Constitutional Narrative: Oriented to person and place only Resp normal respiratory effort GI GI Narrative: Mild distention, soft, reports tenderness to palpation?particularly of the right upper quadrant. Here there is a cholecystostomy tube that is actively draining transparent brown?yellow bile Assessment & Plan Assessment/Plan (1) Acute calculous cholecystitis: PLAN: Patient is hospital day 6 for admission for acute cholecystitis. Today patient's cholecystostomy tube remains draining well apart from, again, having to correct some kinking of the tubing. Her abdominal exam remained stable. Patient was transition from the ICU to the [facility] floor yesterday and appears to be overall clinically stable. ? Continue vigilance around patient's cholecystostomy tube both with patient positioning to avoid accidental dislodgment and with simple monitoring for ongoing drainage. This tube would appear to be destination therapy for patient and should be planned for this indefinite duration of therapy. ? Could consider discontinuation of antibiotic therapy since patient has had 5 days since presumed source control with placement of her cholecystostomy Remainder of care per primary team Charges/Coding Visit Charges Inpatient E&M: 64585 [facility] Hosp L2
[2024-01-01] MEDS: Pantoprazole Sodium 40 MG in 0.9% Normal Saline (100mL MB+) 100 ML 330 MG IV (09:35)
[2024-01-01 09:37] VITALS: BP 124/56; PULSE 70; RESP 18; TEMP 36.9; O2SAT 93
[2024-01-01] MEDS: Bisacodyl 10 MG Suppository RC (09:46)
[2024-01-01] MEDS: Multivitamins,Therapeutic Tablet 1 TABLET PO (09:46)
[2024-01-01] MEDS: Menthol/Lanolin/Calamine/Znox 113 GM Tube 1 APPLIC TOPICAL ×2 (09:46→21:20)
[2024-01-01] MEDS: Meropenem 500 MG in 0.9% Normal Saline (50mL MB+) 50 ML 100 MG IV ×2 (09:52→21:20)
[2024-01-01] MEDS: oxyCODONE 5 MG Tablet PO (10:41)
[2024-01-01 12:19] LABS: Bedside Glucose 142 mg/dL (74-106)
[2024-01-01 14:53] VITALS: BP 136/61; PULSE 94; RESP 18; TEMP 36.6; O2SAT 94
[2024-01-01 17:22] LABS: Bedside Glucose 139 mg/dL (74-106)
--- NOTE | 2024-01-01 18:38 | PN.HOSP_ITS ---
Reason for Visit Reason for Visit: Diagnoses Sepsis, unspecified organism (12/27/23) Elevated white blood cell count, unspecified (12/27/23) Hypomagnesemia (12/27/23) Calculus of gallbladder with acute cholecystitis without obstruction (12/27/23) Nausea with vomiting, unspecified (12/27/23) Dysphagia, unspecified (12/27/23) Transient alteration of awareness (12/27/23) Altered mental status, unspecified (12/27/23) Severe sepsis with septic shock (12/27/23) Displaced bicondylar fracture of left tibia, initial encounter for closed fracture (12/27/23) Displaced bicondylar fracture of left tibia, subsequent encounter for closed fracture with delayed healing (12/27/23) Other fracture of upper and lower end of left fibula, initial encounter for closed fracture (12/27/23) Displaced bimalleolar fracture of left lower leg, initial encounter for closed fracture (12/27/23) Displaced pilon fracture of left tibia, initial encounter for closed fracture (12/27/23) Subjective Subjective Patient was seen and examined today, she does not appear to be in any distress from pain, I talked briefly with her who was in the room today. Objective Data Objective Data Vital Signs: Vital Signs Temp Pulse Resp BP Pulse Ox O2 Del Method O2 Flow Rate 98 F 94 18 136/61 H 94 Room Air 1 01/01/24 14:53 01/01/24 14:53 01/01/24 14:53 01/01/24 14:53 01/01/24 14:53 01/01/24 14:53 12/31/23 08:00 Oxygen Flow Rate (L/min) 1 Oxygen Delivery Method Room Air Weight: 83.4 kg Body Mass Index (BMI) 36.1 Intake & Output: Intake and Output for Last 24 Hours 12/30/23 12/31/23 01/01/24 23:59 23:59 23:59 Intake Total 880.96 / 880.96 920 / 920 358 / 358 Output Total 1395 / 1395 710 / 760 230 / 230 Balance -514.04 / -514.04 210 / 160 128 / 128 Lab / Micro Data 12/31/23 03:25 12/31/23 03:25 Labs: Laboratory Results - last 24 hr 12/31/23 21:30: POC Glucose 153 H 01/01/24 06:14: POC Glucose 120 H 01/01/24 11:59: POC Glucose 142 H 01/01/24 17:02: POC Glucose 139 H Micro: Microbiology 12/28/23 11:50 Iglesia Henry Drainage Gram Stain - Final 12/28/23 11:50 Iglesia Henry Drainage Wound Culture - Final Enterobacter cloacae complex 12/28/23 11:50 Iglesia Henry Drainage Anaerobic Culture - Final No anaerobic bacteria isolated. 12/27/23 20:07 Blood Culture (Wb) - Left Hand Blood Culture - Preliminary No growth in 48 hours. Physical Exam Narrative alert and no apparent distress General Appearance: cooperative, well kempt and well developed Orientation / Consciousness: awake, oriented to person, oriented to place HEENT normocephalic, head/scalp atraumatic and moist oral mucous membranes Eyes PERRL, EOMs intact bilaterally and conjunctivae normal Neck supple, no JVD, thyroid normal and no carotid bruits General: trachea midline Resp normal respiratory effort, no retractions and clear to auscultation bilaterally Auscultation: Negative for rales, rhonchi or wheezes Cardio regular rate, regular rhythm, S1 normal heart sound, S2 normal heart sound, no murmurs, no rub and no gallops GI normal to inspection, nondistended, normoactive bowel sounds, soft to palpation, non-tender and non-distended Extremity no clubbing, cyanosis or edema Skin no rashes Neuro CN's II-XII intact bilaterally, moves all extremities, no focal motor deficits and no sensory deficits noted Sensorium / Orientation: awake and alert Speech: speech normal Psych affect normal Assessment & Plan Assessment/Plan (1) Acute calculous cholecystitis: (2) Septic shock: PLAN: Plan 1. Septic shock secondary to acute calculous cholecystitis-drainage from the patient's Iglesia-Henry tube grew out Enterobacter cloacae I which is susceptible to many antibiotics, patient remains on meropenem at this time, I will obtain labs in the morning on the patient #2 acute calculous cholecystitis-surgery is participating in her care, continue present antibiotic coverage #3 recent tibial plateau fracture with bimalleolar fracture of the left ankle and closed fracture of the left fibula-treatment is nonsurgical at this point, nursing reported some abrasions underneath her leg immobilizer, wound nurse will see the patient tomorrow. #4 generalized debility-patient will need to return to group home facility at the conclusion of her hospitalization here #5 type 2 diabetes-patient's blood sugars will be monitored, sliding scale insulin will be administered as needed #6 essential hypertension-patient's blood pressure medications are being held at this time, blood pressure will be monitored and medicines may need to be started in the near future again #7 hyperlipidemia-patient will resume her atorvastatin Total clinical time spent by myself addressing the patient's medical issues, reviewing all of her data, and collaborating with patient's care team: 35 minutes Charges/Coding Visit Charges Inpatient E&M: 80224 Subs Hosp L2
[2024-01-01 20:12] VITALS: PULSE 66; RESP 16
[2024-01-01 20:30] VITALS: BP 154/75; PULSE 66; RESP 18; TEMP 36.6; O2SAT 99
[2024-01-01] MEDS: 0.9% Saline Lock 10 ML Syringe IV (21:20)
[2024-01-01] MEDS: Atorvastatin Calcium 20 MG Tablet PO (21:21)
[2024-01-01] MEDS: RisperiDONE 0.5 MG Tablet PO (21:21)
[2024-01-01 21:45] LABS: Bedside Glucose 149 mg/dL (74-106)
[2024-01-02 02:20] VITALS: BP 153/71; PULSE 67; RESP 16; TEMP 36.6; O2SAT 95
[2024-01-02 03:36] VITALS: BMI 35.9
[2024-01-02] MEDS: Heparin Injection (Vial) 5,000 UNIT/ML VIAL 5000 UNIT SC ×2 (05:54→15:09)
[2024-01-02 06:19] LABS: Bedside Glucose 144 mg/dL (74-106)
[2024-01-02 07:16] VITALS: PULSE 68; RESP 18; O2SAT 98
[2024-01-02] MEDS: Budesonide Respules 0.5 MG/2 ML AMPUL.NEB. INHALATION ×2 (07:16→19:26)
[2024-01-02 08:09] VITALS: BP 153/69; PULSE 64; RESP 16; TEMP 36.3; O2SAT 99
[2024-01-02] MEDS: Multivitamins,Therapeutic Tablet 1 TABLET PO (08:23)
--- NOTE | 2024-01-02 09:09 | PCM.PN.SRG ---
Subjective Subjective Patient evaluated resting comfortably in bed. She denies any abdominal pain/discomfort this morning. Objective Data Objective Data Vital Signs: Vital Signs Temp Pulse Resp BP Pulse Ox O2 Del Method O2 Flow Rate 97.3 F L 64 16 153/69 H 99 Room Air 1 01/02/24 08:09 01/02/24 08:09 01/02/24 08:09 01/02/24 08:09 01/02/24 08:09 01/02/24 08:09 12/31/23 08:00 Oxygen Flow Rate (L/min) 1 Oxygen Delivery Method Room Air Weight: 183 lb 3.266 oz Body Mass Index (BMI) 35.9 Intake & Output: Intake and Output for Last 24 Hours 12/31/23 01/01/24 01/02/24 23:59 23:59 23:59 Intake Total 920 / 920 418 / 418 Output Total 710 / 760 230 / 890 940 / 940 Balance 210 / 160 188 / -472 -940 / -940 Lab / Micro Data 12/31/23 03:25 12/31/23 03:25 Labs: Laboratory Results - last 24 hr 01/01/24 11:59: POC Glucose 142 H 01/01/24 17:02: POC Glucose 139 H 01/01/24 21:24: POC Glucose 149 H 01/02/24 05:54: POC Glucose 144 H Micro: Microbiology 12/27/23 20:07 Blood Culture (Wb) - Left Hand Blood Culture - Final No growth in 5 days. 12/28/23 11:50 Iglesia Henry Drainage Gram Stain - Final 12/28/23 11:50 Iglesia Henry Drainage Wound Culture - Final Enterobacter cloacae complex 12/28/23 11:50 Iglesia Henry Drainage Anaerobic Culture - Final No anaerobic bacteria isolated. Physical Exam GI GI Narrative: Abdomen- soft, non-tender. HAYDEN intact with no kink. Serous fluid noted within the bulb. No pain to palpation. Assessment & Plan Assessment/Plan (1) Acute calculous cholecystitis: PLAN: Plan I have evaluated this patient in conjunction with Dr. Herrera. Patient seems to be improving Patient is surgically stable to be discharged to the detention She will need a follow-up appointment in [address] Javier BLAKE drain will need to be emptied daily or more often and amount of drainage recorded Charges/Coding Visit Charges Inpatient E&M: 26814 Subs Hosp L1
[2024-01-02] MEDS: Meropenem 500 MG in 0.9% Normal Saline (50mL MB+) 50 ML 100 MG IV (10:06)
[2024-01-02] MEDS: Menthol/Lanolin/Calamine/Znox 113 GM Tube 1 APPLIC TOPICAL (10:10)
[2024-01-02] MEDS: Bisacodyl 10 MG Suppository RC (10:28)
[2024-01-02] MEDS: Pantoprazole Sodium 40 MG in 0.9% Normal Saline (100mL MB+) 100 ML 330 MG IV (11:06)
[2024-01-02] MEDS: Insulin Lispro 100 UNIT/ML INSULN.PEN SC (11:09)
[2024-01-02 11:31] LABS: Bedside Glucose 154 mg/dL (74-106)
--- NOTE | 2024-01-02 12:56 | CASEMGMT ---
Discharge Planning Updates sent to [facility] via [facility]. Frances Gómez, Discharge Planning Asst.
[2024-01-02 15:02] VITALS: BP 151/57; PULSE 66; RESP 16; TEMP 36.6; O2SAT 97
--- NOTE | 2024-01-02 15:54 | TREXTCAR_ITS ---
Diet Diet Order/Speech Therapy: 12/30/23 10:39 Diet: Regular - General Food consistency:: Pureed Liquid Consistency:: Regular/Thin Is pt able to select menu?: No Diet Comments: SMALL SIPS W/ EFFORTFUL SWALLOW, Direct supervision Routine Orders/Code Status Code Status: DNRCC-A (no intubation) Wound(s) R buttock: Wound Type: Pressure Injury sacrum: Wound Type: Pressure Injury L ankle/foot: Wound Type: Pressure Injury Therapies Weight Bearing: Non weight bearing (Left leg) Physical Therapy: Eval and Treat Occupational Therapy: Eval and Treat Problem/Diagnosis (1) Acute calculous cholecystitis: Status: Acute Code(s): K80.00 - Calculus of gallbladder with acute cholecystitis without obstruction Plan 1. Septic shock secondary to acute calculous cholecystitis-drainage from the patient's Iglesia-Henry tube grew out Enterobacter cloacae I which is ruiz sceptible to many antibiotics, patient remains on meropenem at this time, I will obtain labs in the morning on the patient #2 acute calculous cholecystitis-surgery is participating in her care, continue present antibiotic coverage #3 recent tibial plateau fracture with bimalleolar fracture of the left ankle and closed fracture of the left fibula-treatment is nonsurgical at this point, nursing reported some abrasions underneath her leg immobilizer, wound nurse will see the patient tomorrow. #4 generalized debility-patient will need to return to longterm facility at the conclusion of her hospitalization here #5 type 2 diabetes-patient's blood sugars will be monitored, sliding scale insulin will be administered as needed #6 essential hypertension-patient's blood pressure medications are being held at this time, blood pressure will be monitored and medicines may need to be started in the near future again #7 hyperlipidemia-patient will resume her atorvastatin Total clinical time spent by myself addressing the patient's medical issues, reviewing all of her data, and collaborating with patient's care team: 35 minutes Allergies/Procedures Done in Hospital Allergies acetaminophen [From Tylenol] Allergy (Verified 11/25/23 09:06) Rash Penicillins Allergy (Verified 11/25/23 09:06) Other puffs me up Procedures: - (CT directed percutaneous cholecystostomy drainage) Type of Care/Length of Stay Estimated LOS: Convalescent Care Less Than 30 days Type of Care Needed: Skilled Rehab Potential: Fair Prognosis: Fair Additional Orders/Day of Discharge H&P will serve as current which was dated: 12/27/23 Day of Discharge: 01/02/24 Dietary and Speech Recommendations Dietitian Recommendations/Changes: Continue regular diet, texture/consistency per [employer]; Will add 4 oz ensure plus high protein 4x/day w/ medpass for increased nutrition if consumed. Discharge Plan Admission Admit Date/Time: 12/27/23 21:38 Primary Reason for Your Visit: Cholecystitis Attending Provider: Sami Carney Primary Care Provider: Kirby Dukes Consulting Providers: Stevan Quijano; Cady Schroeder; Edgardo Lennon Instructions Additional Instructions / Restrictions: Empty Iglesia-Henry tube every 8 hours and monitor amount of drainage Patient is to wear the knee immobilizer Aircast at all times except for personal hygiene Discharge Orders/Prescriptions Prescriptions: New oxycodone 5 mg Tablet 5 mg PO Q4H PRN PRN (Reason: Pain Score 6-10) 2 Days Qty: 6 0RF insulin lispro [Humalog KwikPen Insulin] 100 unit/mL Insulin Pen See Protocol subcut ACHS Qty: 1 0RF Protocol: 3. Sliding Scale Insulin Med Dosing Condition: 150-189 mg/dl = 1 unit Condition: 190-229 mg/dl = 2 units Condition: 230-269 mg/dl = 3 units Condition: 270-309 mg/dl = 4 units Condition: 310-349 mg/dl = 5 units Condition: 350-399 mg/dl = 6 units Condition: 400-449 mg/dl = 7 units Condition: Greater than 449 call physician Protocol Text: - Use for Total Daily Dose of Insulin 37-55 units - Obsese, infected, or steroid patients MEDIUM DOSING ALGORITHIM menthol-zinc oxide [Calmoseptine] 0.44-20.6 % Ointment 1 applic topical BID Qty: 0 0RF Protocol: *Topical Application Instructions APPLICATION INSTRUCTIONS: buttocks Ensure Plus High Protein 0.08 gram-1.5 kcal/mL Liquid 120 ml PO 4X/DAY Qty: 0 0RF risperidone 0.5 mg Tablet 0.5 mg PO QHS Qty: 0 0RF lisinopril 10 mg tablet 10 mg PO DAILY Qty: 1 0RF metformin 500 mg tablet 500 mg PO BID Qty: 1 0RF Continued carvedilol 3.125 mg tablet 3.125 mg PO Q12H fluticasone propion-salmeterol 500-50 mcg/dose blister with device 1 inh INHALATION Q12H furosemide 40 mg tablet 40 mg PO DAILY nystatin 100,000 unit/gram cream 1 applic TOPICAL DAILY omeprazole 40 mg capsule,delayed release(DR/EC) 40 mg PO DAILY multivitamin [Daily Multi-Vitamin] Tablet 1 tab PO DAILY albuterol sulfate 90 mcg/actuation HFA aerosol inhaler 2 puff INHALATION Q6H PRN (Reason: shortness of breath or wheezing) Patient Comments: inhale 2 puffs by mouth and INTO THE LUNGS every 6 hours if needed heparin (porcine) 5,000 unit/mL Solution 5,000 unit subcut Q12 Qty: 1 0RF potassium chloride 20 mEq Tablet,Er Particles/Crystals 20 meq PO BIDCM Qty: 0 0RF ondansetron HCl 8 mg tablet 8 mg PO Q6H PRN PRN (Reason: nausea and vomiting) Qty: 1 0RF atorvastatin 20 mg tablet 20 mg PO QHS bisacodyl 10 mg suppository 10 mg [place] DAILY PRN (Reason: constipation) Discontinued enalapril maleate 20 mg tablet 20 mg PO Q12H alum-mag hydroxide-simeth [Mag-Al Plus Extra Strength] 400-400-40 mg/5 mL Suspension 30 ml PO Q6H PRN PRN (Reason: Gastric Burning) Qty: 0 0RF oxycodone 5 mg Tablet 10 mg PO Q4H PRN PRN (Reason: Pain Score 4-10) 2 Days Qty: 10 0RF insulin glargine-yfgn 100 unit/mL (3 mL) Insulin Pen 10 unit subcut DINNER Qty: 0 0RF insulin glargine-yfgn 100 unit/mL (3 mL) Insulin Pen 10 unit subcut BREAKFAST Qty: 0 0RF sennosides-docusate sodium [Stool Softener-Stimulant Laxat] 8.6-50 mg Tablet 2 tab PO BID PRN PRN (Reason: Constipation) Qty: 0 0RF Referrals / Follow Up: Kirby Dukes DO [Primary Care Provider] - Delbert Herrera MD [Med Staff - Active Staff] - See Referral Note (In 2 weeks- call for appointment) Delbert Toledo DO [Med Staff - Active Staff] - See Referral Note (Call to follow-up with Gerber Randall in the office and confirm the date of follow-up, and appointment should already be scheduled, if not, make the appointment for 2 weeks) Disposition Disposition (needs filled in before D/C Order can be placed): [facility] Facility
--- NOTE | 2024-01-02 16:19 | DS.PCM_ITS ---
Providers Date of Admission: 12/27/23 Date of Discharge: 01/02/24 Primary Care Physician: Dr. Kirby Dukes, Consultations 12/27/23 23:38 Consult: Onc/Wound/hydroelectric operator Routine Comment: Reason for Consult:: pressure injury on R buttock 12/28/23 05:35 Consult: Interventional Radiology Routine Consulting Provider: Edgardo Lennon Reason for Consult: Acute Cholecystitis with need for Cholecystostomy Drain EMERGENT Consult: No MD Notified: Yes Date Notified: 12/28/23 Time Notified: 08:53 Method of Notification: Answering Service Method of Consult:: In-Person Comments:: talked with [facility] dental resident 12/28/23 15:15 Consult: [place] / Pulmonary Medicine Routine Consulting Provider: Intensivists/Pulmonary Med Reason for Consult: sepsis EMERGENT Consult: No MD Notified: Yes Date Notified: 12/28/23 Time Notified: 15:16 Method of Notification: Verbal Reason For Visit: ACALCULOUS CHOLECYSTITIS, FECAL IMPACTION, N/V+ Diagnosis Discharge Diagnosis (1) Acute calculous cholecystitis: Status: Acute Code(s): K80.00 - Calculus of gallbladder with acute cholecystitis without obstruction Plan 1. Septic shock secondary to acute calculous cholecystitis-drainage from the patient's Iglesia-Henry tube grew out Enterobacter cloacae I which is susceptible to many antibiotics, patient remains on meropenem at this time, I will obtain labs in the morning on the patient #2 acute calculous cholecystitis-surgery is participating in her care, continue present antibiotic coverage #3 recent tibial plateau fracture with bimalleolar fracture of the left ankle and closed fracture of the left fibula-treatment is nonsurgical at this point, nursing reported some abrasions underneath her leg immobilizer, wound nurse will see the patient tomorrow. #4 generalized debility-patient will need to return to senior living facility at the conclusion of her hospitalization here #5 type 2 diabetes-patient's blood sugars will be monitored, sliding scale insulin will be administered as needed #6 essential hypertension-patient's blood pressure medications are being held at this time, blood pressure will be monitored and medicines may need to be started in the near future again #7 hyperlipidemia-patient will resume her atorvastatin Total clinical time spent by myself addressing the patient's medical issues, reviewing all of her data, and collaborating with patient's care team: 35 minutes Medications at Discharge Home Medications albuterol sulfate 90 mcg/actuation aerosol inhaler 2 puff inhalation Q6H PRN shortness of breath or wheezing 11/25/23 carvedilol 3.125 mg tablet 3.125 mg PO Q12H 11/25/23 fluticasone 500 mcg-salmeterol 50 mcg/dose blistr powdr for inhalation 1 inh inhalation Q12H 11/25/23 furosemide 40 mg tablet 40 mg PO DAILY 11/25/23 multivitamin (Daily Multi-Vitamin tablet) 1 tab PO DAILY 11/25/23 nystatin 100,000 unit/gram topical cream 1 applic topical DAILY 11/25/23 omeprazole 40 mg capsule,delayed release 40 mg PO DAILY 11/25/23 heparin (porcine) 5,000 unit/mL injection solution 5,000 unit subcut Q12 #1 mL 11/29/23 ondansetron HCl 8 mg tablet 8 mg PO Q6H PRN PRN nausea and vomiting #1 TAB 11/29/23 potassium chloride 20 mEq tablet,extended release(part/cryst) 20 meq PO BIDCM #0 tabs 11/29/23 atorvastatin 20 mg tablet 20 mg PO QHS 12/27/23 bisacodyl 10 mg rectal suppository 10 mg VA DAILY PRN constipation 12/27/23 food supplemt, lactose-reduced 0.08 gram-1.5 kcal/mL oral liquid (Ensure Plus High Protein) 120 ml PO 4X/DAY #0 mL 01/02/24 insulin lispro 100 unit/mL subcutaneous pen (Humalog KwikPen (U-100) Insulin) See Protocol subcut ACHS #1 mL 01/02/24 lisinopril 10 mg tablet 10 mg PO DAILY #1 TAB 01/02/24 menthol 0.44 %-zinc oxide 20.6 % topical ointment (Calmoseptine) 1 applic topical BID #0 grams 01/02/24 metformin 500 mg tablet 500 mg PO BID #1 TAB 01/02/24 oxycodone 5 mg tablet 5 mg PO Q4H PRN PRN Pain Score 6-10 2 days #6 tabs 01/02/24 risperidone 0.5 mg tablet 0.5 mg PO QHS #0 tabs 01/02/24 Hospital Course Operations None Procedures - (Cholecystostomy tube insertion percutaneously) Summary of Care Provided Minutes Spent on Discharge: 32 Hospital Course: This 88-year-old white female was seen in the emergency room at [facility] after being transferred from a senior living facility due to nausea and vomiting. Patient also complained of intermittent abdominal pain in the epigastrium and right upper quadrant. Workup in the emergency room included a CT scan of the abdomen and pelvis that was positive for distended gallbladder with cholelithiasis and pericholecystic fluid consistent with acute calculus cholecystitis along with fecal retention with distention of the rectum. White blood cell count was elevated at 26.2, general surgery was consulted to see the patient by the emergency room physician, patient was admitted to [facility] initially and kept on IV antibiotics. Patient had a cholecystostomy tube placed and afterwards had significant hypotension so she was transferred to the ICU unit and seen by critical care. Patient was felt to have septic shock. Patient stabilized in the ICU, she was seen by PT and OT, and transferred out to the medical floor for further care, on 01/02/2024, patient was seen and examined: alert and no apparent distress General Appearance: cooperative, well kempt and well developed Orientation / Consciousness: awake, oriented to person, oriented to place HEENT normocephalic, head/scalp atraumatic and moist oral mucous membranes Eyes PERRL, EOMs intact bilaterally and conjunctivae normal Neck supple, no JVD, thyroid normal and no carotid bruits General: trachea midline Resp normal respiratory effort, no retractions and clear to auscultation bilaterally Auscultation: Negative for rales, rhonchi or wheezes Cardio regular rate, regular rhythm, S1 normal heart sound, S2 normal heart sound, no murmurs, no rub and no gallops GI normal to inspection, nondistended, normoactive bowel sounds, soft to palpation, non-tender and non-distended Extremity no clubbing, cyanosis or edema Skin no rashes Neuro CN's II-XII intact bilaterally, moves all extremities, no focal motor deficits and no sensory deficits noted Sensorium / Orientation: awake and alert Speech: speech normal Psych affect normal On 01/02/2024, patient appears stable for discharge to her extended care facility for further care Weight / BMI Weight Weight: 83.1 kg Body Mass Index (BMI) 35.9 ABG / Lab / Microbiology Data 12/31/23 03:25 12/31/23 03:25 Laboratory: Laboratory Results - last 24 hr 01/01/24 17:02: POC Glucose 139 H 01/01/24 21:24: POC Glucose 149 H 01/02/24 05:54: POC Glucose 144 H 01/02/24 11:07: POC Glucose 154 H Microbiology: Microbiology 12/27/23 20:07 Blood Culture (Wb) - Left Hand Blood Culture - Final No growth in 5 days. 12/28/23 11:50 Iglesia Henry Drainage Gram Stain - Final 12/28/23 11:50 Iglesia Henry Drainage Wound Culture - Final Enterobacter cloacae complex 12/28/23 11:50 Iglesia Henry Drainage Anaerobic Culture - Final No anaerobic bacteria isolated. Meaningful Use Info Meaningful Use Diagnoses (Choose all that apply): None applicable Discharge Plan Admission Admit Date/Time: 12/27/23 21:38 Primary Reason for Your Visit: Cholecystitis Attending Provider: Sami Carney Primary Care Provider: Kirby Dukes Consulting Providers: Stevan Quijano; Cady Schroeder; Edgardo Lennon Instructions Additional Instructions / Restrictions: Empty Iglesia-Henry tube every 8 hours and monitor amount of drainage Patient is to wear the knee immobilizer Aircast at all times except for personal hygiene Discharge Orders/Prescriptions Prescriptions: New oxycodone 5 mg Tablet 5 mg PO Q4H PRN PRN (Reason: Pain Score 6-10) 2 Days Qty: 6 0RF insulin lispro [Humalog KwikPen Insulin] 100 unit/mL Insulin Pen See Protocol subcut ACHS Qty: 1 0RF Protocol: 3. Sliding Scale Insulin Med Dosing Condition: 150-189 mg/dl = 1 unit Condition: 190-229 mg/dl = 2 units Condition: 230-269 mg/dl = 3 units Condition: 270-309 mg/dl = 4 units Condition: 310-349 mg/dl = 5 units Condition: 350-399 mg/dl = 6 units Condition: 400-449 mg/dl = 7 units Condition: Greater than 449 call physician Protocol Text: - Use for Total Daily Dose of Insulin 37-55 units - Obsese, infected, or steroid patients MEDIUM DOSING ALGORITHIM menthol-zinc oxide [Calmoseptine] 0.44-20.6 % Ointment 1 applic topical BID Qty: 0 0RF Protocol: *Topical Application Instructions APPLICATION INSTRUCTIONS: buttocks Ensure Plus High Protein 0.08 gram-1.5 kcal/mL Liquid 120 ml PO 4X/DAY Qty: 0 0RF risperidone 0.5 mg Tablet 0.5 mg PO QHS Qty: 0 0RF lisinopril 10 mg tablet 10 mg PO DAILY Qty: 1 0RF metformin 500 mg tablet 500 mg PO BID Qty: 1 0RF Continued carvedilol 3.125 mg tablet 3.125 mg PO Q12H fluticasone propion-salmeterol 500-50 mcg/dose blister with device 1 inh INHALATION Q12H furosemide 40 mg tablet 40 mg PO DAILY nystatin 100,000 unit/gram cream 1 applic TOPICAL DAILY omeprazole 40 mg capsule,delayed release(DR/EC) 40 mg PO DAILY multivitamin [Daily Multi-Vitamin] Tablet 1 tab PO DAILY albuterol sulfate 90 mcg/actuation HFA aerosol inhaler 2 puff INHALATION Q6H PRN (Reason: shortness of breath or wheezing) Patient Comments: inhale 2 puffs by mouth and INTO THE LUNGS every 6 hours if needed heparin (porcine) 5,000 unit/mL Solution 5,000 unit subcut Q12 Qty: 1 0RF potassium chloride 20 mEq Tablet,Er Particles/Crystals 20 meq PO BIDCM Qty: 0 0RF ondansetron HCl 8 mg tablet 8 mg PO Q6H PRN PRN (Reason: nausea and vomiting) Qty: 1 0RF atorvastatin 20 mg tablet 20 mg PO QHS bisacodyl 10 mg suppository 10 mg VA DAILY PRN (Reason: constipation) Discontinued enalapril maleate 20 mg tablet 20 mg PO Q12H alum-mag hydroxide-simeth [Mag-Al Plus Extra Strength] 400-400-40 mg/5 mL Suspension 30 ml PO Q6H PRN PRN (Reason: Gastric Burning) Qty: 0 0RF oxycodone 5 mg Tablet 10 mg PO Q4H PRN PRN (Reason: Pain Score 4-10) 2 Days Qty: 10 0RF insulin glargine-yfgn 100 unit/mL (3 mL) Insulin Pen 10 unit subcut DINNER Qty: 0 0RF insulin glargine-yfgn 100 unit/mL (3 mL) Insulin Pen 10 unit subcut BREAKFAST Qty: 0 0RF sennosides-docusate sodium [Stool Softener-Stimulant Laxat] 8.6-50 mg Tablet 2 tab PO BID PRN PRN (Reason: Constipation) Qty: 0 0RF Referrals / Follow Up: Kirby Dukes DO [Primary Care Provider] - Delbert Herrera MD [Med Staff - Active Staff] - See Referral Note (In 2 weeks- call for appointment) Delbert Toledo DO [Med Staff - Active Staff] - See Referral Note (Call to follow-up with Gerber Randall in the office and confirm the date of follow-up, and appointment should already be scheduled, if not, make the appointment for 2 weeks) Disposition Disposition (needs filled in before D/C Order can be placed): Senior Living Facility Charges/Coding Visit Charges Inpatient E&M: 38134 Disch Hosp >30min
--- NOTE | 2024-01-02 16:59 | CASEMGMT ---
Social Work _er
--- NOTE | 2024-01-02 17:00 | CASEMGMT ---
Social Work Per physician, pt is ready for dc today. Phone call to [facility] notifying that pt will return today. Green sheet placed on chart to facilitate discharge. Disposition: Return to [facility], skilled level of care LIONEL Galvan
[2024-01-02 19:30] VITALS: PULSE 76; RESP 18; O2SAT 97
[2024-01-02 19:45] VITALS: BP 159/63; PULSE 78; RESP 20; TEMP 36.9; O2SAT 99
[2024-01-02 20:16] LABS: Bedside Glucose 121 mg/dL (74-106)
== END 2024-01-02 20:00 | DRG 871 ==
LOC: ED 20:44 → MS3 21:45 → ICU 12-28 15:21 → MS3 01-02 16:19
PROVIDERS: Internal Medicine; Physician Assistant; Admitting Provider Internal Medicine; Emergency Provider Emergency Medicine; PCP Family Medicine; Visit Provider Internal Medicine
DX: A41.9 Sepsis, unspecified organism (principal); G92.8 Other toxic encephalopathy; N17.0 Acute kidney failure with tubular necrosis; R65.21 Severe sepsis with septic shock; K80.00 Calculus of gallbladder with acute cholecystitis without obstruction; I13.0 Hypertensive heart and chronic kidney disease with heart failure and stage 1 through stage 4 chronic kidney disease, or unspecified chronic kidney disease; I69.354 Hemiplegia and hemiparesis following cerebral infarction affecting left non-dominant side; E87.20 Acidosis, unspecified; F03.90 Unspecified dementia, unspecified severity, without behavioral disturbance, psychotic disturbance, mood disturbance, and anxiety; J44.9 Chronic obstructive pulmonary disease, unspecified; E11.22 Type 2 diabetes mellitus with diabetic chronic kidney disease; N18.32 Chronic kidney disease, stage 3b; I50.9 Heart failure, unspecified; Z79.4 Long term (current) use of insulin; D64.9 Anemia, unspecified; E78.5 Hyperlipidemia, unspecified; I25.10 Atherosclerotic heart disease of native coronary artery without angina pectoris; K21.9 Gastro-esophageal reflux disease without esophagitis; M19.90 Unspecified osteoarthritis, unspecified site; K29.70 Gastritis, unspecified, without bleeding; K29.80 Duodenitis without bleeding; E83.42 Hypomagnesemia; K59.00 Constipation, unspecified; M81.0 Age-related osteoporosis without current pathological fracture; Z87.891 Personal history of nicotine dependence; S82.142D Displaced bicondylar fracture of left tibia, subsequent encounter for closed fracture with routine healing; R13.10 Dysphagia, unspecified; Z66 Do not resuscitate; Z79.01 Long term (current) use of anticoagulants; R09.02 Hypoxemia; R53.81 Other malaise; S82.142G Displaced bicondylar fracture of left tibia, subsequent encounter for closed fracture with delayed healing
CPT/HCPCS: 20501; 36415; 36600; 70450; 74018; 74022; 74176; 74177; 74230; 76705; 77012; 80053; 82607; 82746; 82803; 82962; 83036; 83605; 83735; 84100; 84443; 85025; 85610; 87040; 87070; 87075; 87077; 87186; 87205; 92526; 92610; 92611; 93005; 94640; 94668; 97110; 97162; 97166; 97530; 97535; 99156; 99285; J2185; J7030; J7050; Q9967; A4216; J2310; J2405

== ENCOUNTER 2024-01-24 14:13 | Inpatient (IN) | payer MEDICARE, MEDICAID, SELFPAY ==
[2024-01-24] VITALS (9 sets, daily range): BP systolic 103–146; BP diastolic 54–86; PULSE 61–75; RESP 16–28; TEMP 36.4–36.6; O2SAT 95–100; BMI 35.6
[2024-01-24] MEDS: 0.9% Normal Saline (1000mL) 1,000 ML 1000 ML IV (14:55)
[2024-01-24 14:59] LABS: Absolute Lymphocyte Count 1.59 X10^3/uL (0.83-4.51); Absolute Neutrophil Count 8.7 X10^3/uL (2.0-7.7); Basophil# 0.04 X10^3/uL; Basophil% 0.3 % (0-1); Eosinophils% 2.6 % (0-5); Hematocrit 32.6 % (37-47); Hemoglobin 10.5 g/dL (12.0-15.0); Lymphocyte # 1.59 X10^3/ul (0.83-4.51); Lymphocyte % 13.9 % (19-41); Mean Corp Hgb Conc 32.2 g/dL (32-36); Mean Corpuscular Hgb 28.6 pg (27.0-32.0); Mean Corpuscular Volume 88.8 fL (81-99); Mean Platelet Vol. 10.3 fl (6.2-12.0); Monocyte# 0.77 X10^3/uL; Monocyte% 6.7 % (0-10); NRBC Flagged by Analyzer 0 % (0-5); Neutrophil # 8.71 X10^3/uL (2.7-7.7); Neutrophil % 76.2 % (47-70); Platelet Count 356 K/mm3 (150-450); RBC Distribution Width CV 14.3 % (11.6-14.6); RBC Distribution Width SD 46.5 fl (35.1-43.9); Red Blood Count 3.67 M/mm3 (4.2-5.4); White Blood Count 11.5 K/mm3 (4.4-11.0)
[2024-01-24 15:21] LABS: AST(SGOT) 17 U/L (15-37); Alanine Aminotransfer ALT/SGPT 15 U/L (13-56); Albumin, Serum 3.2 g/dL (3.2-5.0); Alkaline Phosphatase 76 U/L (45-117); Anion Gap 7 (5-15); BUN 23 mg/dL (7-18); BUN/Creat Ratio 23.1 RATIO (10-20); Calcium,Total 9.5 mg/dL (8.5-10.1); Chloride 97 mmol/L (98-107); EST Glomerular Filtration Rate 56 mL/min (>60); Est Glom Filt Rate - Afr Amer 68 mL/min (>60); Globulin 3.6 g/dL (2.2-4.2); Glucose 163 mg/dL (74-106); Lipase 40 U/L (13-75); Potassium 4.5 mmol/L (3.5-5.1); Protein, Total 6.8 g/dL (6.4-8.2); Sodium Level 132 mmol/L (136-145)
[2024-01-24] MEDS: Morphine 4 MG/ML Syringe IV ×2 (15:27→17:30)
[2024-01-24] MEDS: Ondansetron 4 MG/2 ML Vial IV (15:27)
--- NOTE | 2024-01-24 15:42 | CT_ITS ---
EXAM: CT ABDOMEN AND PELVIS WITH INTRAVENOUS CONTRAST CLINICAL INDICATION: cholecystostomy tube TECHNIQUE: Helically acquired images were obtained of the abdomen and pelvis with intravenous contrast. This CT exam was performed using one or more of the following dose reduction techniques: automated exposure control, adjustment of the mA and/or kV according to patient size, and/or use of iterative reconstruction technique. CONTRAST: IV 100mL Isovue-370 COMPARISON: 12/28/2023 FINDINGS: LOWER THORAX: Unremarkable. Lung bases are clear. No cardiomegaly. No significant pericardial effusion. ABDOMEN: LIVER: Unremarkable. Homogeneous. No focal mass. GALLBLADDER AND BILE DUCTS: See below. PANCREAS: Unremarkable. No focal cystic or solid mass. SPLEEN: Unremarkable. Normal size without focal cystic or solid mass. ADRENALS: Unremarkable. No nodules. KIDNEYS AND URETERS: Unremarkable. Normal renal size and position. No hydronephrosis. STOMACH AND BOWEL: See below. PELVIS: APPENDIX: No evidence of acute appendicitis. BLADDER: Unremarkable. REPRODUCTIVE: Unremarkable as visualized. No mass. ABDOMEN and PELVIS: INTRAPERITONEAL SPACE: Unremarkable. No ascites or other fluid collection. No free air. BONES/JOINTS: Unremarkable. No suspicious lytic or blastic abnormality. SOFT TISSUES: Unremarkable. No discrete abdominal or pelvic wall hernia. VASCULATURE: Unremarkable. Abdominal aorta is non-dilated. LYMPH NODES: Unremarkable. No enlarged lymph nodes. TUBES, LINES AND DEVICES: There is a cholecystostomy in place. Signed there is stool seen throughout the colon compatible with constipation. There is a large amount stool in the distal sigmoid colon and rectum compatible with fecal impaction. CT/Abdomen/Pelvis W IV Cont ONLY IMPRESSION: 1. Cholecystostomy tube in stable position. There has been no significant change from the reference exam. 2. Large amount of stool in rectum compatible with fecal impaction. There is also stool seen throughout the colon compatible with constipation. Electronically Signed: Suleman Carolina MD at 16:42 EDT ,
--- NOTE | 2024-01-24 15:42 | EDS_ITS ---
HPI HPI - GI History of Present Illness Chief Complaint: Abd Pain Narrative Narrative: 88-year-old female with abdominal pain. She has a history of cholecystitis. She had a cholecystostomy tube placed by Dr. Herrera about a month ago. Followed up about 4 days ago and was doing well but notes over the last couple days she has increased pain. She states that her tube is kinked. She does not know when exactly it became kinked. She does equate it to be worsening pain. No fevers or chills. No nausea or vomiting. PFSH PFS Medical History Anemia Anxiety Asthma Chest pain CHF (congestive heart failure) COPD (chronic obstructive pulmonary disease) Coronary artery disease DVT (deep venous thrombosis) Former smoker HTN (hypertension) Osteoporosis Stroke/cerebrovascular accident Home Medications albuterol sulfate 90 mcg/actuation aerosol inhaler 2 puff inhalation Q6H PRN s hortness of breath or wheezing 11/25/23 [History Last Taken Unknown] carvedilol 3.125 mg tablet 3.125 mg PO Q12H 11/25/23 [History Last Taken 12/27/23] fluticasone 500 mcg-salmeterol 50 mcg/dose blistr powdr for inhalation 1 inh inhalation Q12H 11/25/23 [History Last Taken 11/24/23] furosemide 40 mg tablet 40 mg PO DAILY 11/25/23 [History Last Taken 12/27/23] multivitamin (Daily Multi-Vitamin tablet) 1 tab PO DAILY 11/25/23 [History Last Taken 12/27/23] nystatin 100,000 unit/gram topical cream 1 applic topical DAILY 11/25/23 [History Last Taken 12/27/23] omeprazole 40 mg capsule,delayed release 40 mg PO DAILY 11/25/23 [History Last Taken 11/24/23] heparin (porcine) 5,000 unit/mL injection solution 5,000 unit subcut Q12 #1 mL 11/29/23 [Rx Last Taken 12/27/23] ondansetron HCl 8 mg tablet 8 mg PO Q6H PRN PRN nausea and vomiting #1 TAB 11/29/23 [Rx Last Taken 12/27/23] atorvastatin 20 mg tablet 20 mg PO QHS 12/27/23 [History Last Taken 12/26/23] bisacodyl 10 mg rectal suppository 10 mg NC DAILY PRN constipation 12/27/23 [History Last Taken 12/26/23] insulin lispro 100 unit/mL subcutaneous pen (Humalog KwikPen (U-100) Insulin) See Protocol subcut ACHS #1 mL 01/02/24 [Rx Last Taken Unknown] lisinopril 10 mg tablet 10 mg PO DAILY #1 TAB 01/02/24 [Rx Last Taken Unknown] menthol 0.44 %-zinc oxide 20.6 % topical ointment (Calmoseptine) 1 applic topical BID #0 grams 01/02/24 [Rx Last Taken Unknown] metformin 500 mg tablet 500 mg PO BID #1 TAB 01/02/24 [Rx Last Taken Unknown] ascorbic acid (vitamin C) 1,000 mg tablet (Vitamin C) 1,000 mg PO DAILY 01/24/24 [History Last Taken Unknown] potassium chloride 20 mEq tablet,extended release(part/cryst) 20 meq PO DAILY 01/24/24 [History Last Taken Unknown] Allergy/AdvReac Type Severity Reaction Status Date / Time acetaminophen [From Tylenol] Allergy Rash Verified 01/24/24 14:40 amphetamine Allergy PT UNSURE Verified 01/24/24 14:40 OF REACTION aztreonam Allergy PT UNSURE Verified 01/24/24 14:40 OF REACTION carbamazepine Allergy PT UNSURE Verified 01/24/24 14:40 OF REACTION Carbapenems Allergy PT UNSURE Verified 01/24/24 14:40 OF REACTION celecoxib Allergy PT UNSURE Verified 01/24/24 14:40 OF REACTION codeine Allergy PT UNSURE Verified 01/24/24 14:40 OF REACTION doxycycline Allergy PT UNSURE Verified 01/24/24 14:40 OF REACTION epinephrine Allergy PT UNSURE Verified 01/24/24 14:40 OF REACTION latex Allergy PT UNSURE Verified 01/24/24 14:40 OF REACTION nickel Allergy PT UNSURE Verified 01/24/24 14:40 OF REACTION Penicillins Allergy Other Verified 01/24/24 14:40 pseudoephedrine Allergy PT UNSURE Verified 01/24/24 14:40 OF REACTION saccharin Allergy PT UNSURE Verified 01/24/24 14:40 OF REACTION Sulfa (Sulfonamide Allergy PT UNSURE Verified 01/24/24 14:40 Antibiotics) OF REACTION sulfamethoxazole Allergy PT UNSURE Verified 01/24/24 14:40 [From OF REACTION Sulfamethoxazole-Trimethoprim] trimethoprim Allergy PT UNSURE Verified 01/24/24 14:40 [From OF REACTION Sulfamethoxazole-Trimethoprim] Surgical History History of appendectomy Social History household members: spouse housing: long-term Smoking Status: Former smoker ROS ROS ED Constitutional Constitutional ED: Denies chills, fever(s) or sweats Eyes Eyes: Denies blurry vision or change in vision ENT ENT ED: Denies ear pain or sore throat Cardiovascular Cardiovascular: Denies chest pain, palpitations or racing heartbeat Respiratory/Chest Respiratory/Chest: Denies cough, dyspnea or sputum Gastrointestinal Gastrointestinal: Reports abdominal pain; Denies constipation, diarrhea, nausea or vomiting Genitourinary Genitourinary ED: Denies dysuria, hematuria or urinary frequency Musculoskeletal Musculoskeletal: Denies arthralgias, myalgias or neck pain Integumentary Denies abscess, Abrasions or rash Neurologic Neurologic: Denies headache(s), paresthesias or weakness Psychiatric Psychiatric: Denies anxiety, depression, suicidal ideation or suicidal thoughts Endocrine Endocrinology: Denies polydipsia or polyuria EXAM Physical Exam Const Vital Signs: 01/24/24 14:15 01/24/24 14:17 01/24/24 15:17 Temperature 98 F 98 F 98 F Temperature Source Oral Oral Oral Pulse Rate 69 69 75 Respiratory Rate 20 H 20 H 28 H Blood Pressure 135/58 H 135/58 H 132/70 H Blood Pressure Mean 83 83 90 Pulse Ox 96 96 98 Oxygen Delivery Method Nasal Cannula Nasal Cannula Room Air Oxygen Flow Rate (L/min) 3 3 01/24/24 16:00 Temperature 98 F Temperature Source Oral Pulse Rate 71 Respiratory Rate 19 H Blood Pressure 146/70 H Blood Pressure Mean 95 Pulse Ox 95 Oxygen Delivery Method Nasal Cannula Oxygen Flow Rate (L/min) 3 General Appearance ED: Negative for pallor HEENT Reports normocephalic, head/scalp atraumatic and moist mucous membranes Eyes PERRL and EOMs intact bilaterally Neck no lymphadenopathy and supple Chest Wall inspection of chest normal and palpation of chest normal Resp normal respiratory effort and clear to auscultation bilaterally Auscultation: Negative for rales, rhonchi or wheezes Cardio regular rate and regular rhythm GI GI Narrative: Cholecystostomy tube is kinked in [address] No drainage. No cellulitic change around the site of insertion. Palpation: tender RLQ Narrative: Deferred Back/Spine no CVA tenderness General Back: Negative for CVA tenderness Cervical Spine: Negative for cervical spine tenderness Extremity normal to inspection General Extremety ED: Yes edema and tenderness General Extremity: edema Neuro oriented x3 and CN's II-XII intact bilaterally Sensorium / Orientation: alert Motor Exam: strength 5/5 throughout Psych mental status grossly normal Attitude: No agitated Skin no rashes or lesions noted and no wounds General Skin Exam: Negative for jaundice or pallor MDM MDM MDM Narrative Medical decision making narrative: Patient presenting with pink cholecystostomy tube. Lab work was obtained to rule out infection. CBC to obtain white blood cell count, hemoglobin complaints. CMP to assess liver function and renal function, lites, glucose. Lipase to assess for pancreatitis. Patient given morphine, Zofran. Discussed the case with Dr. Elmore who came to evaluate the patient and unkinked the tube and noted that when he flushed it there was maru pus coming out of it. He recommended CT of the abdomen pelvis, Cipro/Flagyl, admission to medicine. CT of the abdomen pelvis shows good placement of the cholecystostomy tube and there is no other acute abnormalities other than constipation and surgery did order some stool softeners/laxatives. Lactic acid was elevated 2.8 which is nonspecific. Discussed with hospitalist for admission. Impression: 1. Abdominal pain 2. Cholecystostomy care Lab Data Attestation: I reviewed the patient's lab results. Labs: Laboratory Results - last 24 hr 01/24/24 01/24/24 14:49 15:02 WBC 11.5 H RBC 3.67 L Hgb 10.5 L Hct 32.6 L MCV 88.8 MCH 28.6 MCHC 32.2 RDW Std Deviation 46.5 H RDW Coeff of Yasir 14.3 Plt Count 356 MPV 10.3 Immature Gran % (Auto) 0.300 Neut % (Auto) 76.2 H Lymph % (Auto) 13.9 L Imperial % (Auto) 6.7 Eos % (Auto) 2.6 Baso % (Auto) 0.3 Absolute Neuts (auto) 8.7 H Absolute Lymphs (auto) 1.59 Nucleated RBC % 0 Sodium 132 L Potassium 4.5 Chloride 97 L Carbon Dioxide 28.0 Anion Gap 7 BUN 23 H Creatinine 1.00 Est GFR (MDRD) Af Amer 68 Est GFR (MDRD) Non-Af 56 L BUN/Creatinine Ratio 23.1 H Glucose 163 H Lactic Acid 2.8 H* Calcium 9.5 Total Bilirubin 0.40 Direct Bilirubin 0.10 AST 17 ALT 15 Alkaline Phosphatase 76 Total Protein 6.8 Albumin 3.2 Globulin 3.6 Lipase 40 Radiography Diagnostic Testing: Clinical Impression(s) from Imaging Studies Abdomen/Pelvis CT 01/24/24 15:42 IMPRESSION: 1. Cholecystostomy tube in stable position. There has been no significant change from the reference exam. 2. Large amount of stool in rectum compatible with fecal impaction. There is also stool seen throughout the colon compatible with constipation. Electronically Signed: Suleman Carolina MD at 16:42 EDT , Discharge Plan Disposition Disposition: Acute Care Hospital [facility] Discharge Date/Time: 01/24/24 17:46
[2024-01-24 15:58] LABS: Lactic Acid 2.8 mmol/L (0.4-1.9)
--- NOTE | 2024-01-24 16:01 | CON.PCM.SX_ITS ---
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 When I was called down the tube was kinked around the sut ures several times. When I straightened it out and untwisted everything purulent material started draining from the drain. I asked the emergency room to order CT scan. The patient can likely be admitted to medicine as long as the tube is in the gallbladder and started on antibiotics. She can have a full liquid diet. Will consult IR in the morning to see if they want to change the tube out over a guidewire and resuture. I will also notify Dr. Herrera who is back tomorrow. Abram Elmore MD Pager: [facility] [address] [place] [address], [address] [place] [address] Office: HPI Consult Data Date of Consult: 01/24/24 HPI Narrative HPI Narrative: JEANNETTE PATEL, is a 88 F who presents with increasing right upper quadrant pain. The patient was seen [address] Herrera in the office for cholecystostomy tube and tube cholangiogram was planned. She reports 2 days ago her right upper quadrant pain began to worsen. She denies nausea or vomiting or fevers or chills. [facility] Medical History Anemia Anxiety Asthma Chest pain CHF (congestive heart failure) COPD (chronic obstructive pulmonary disease) Coronary artery disease DVT (deep venous thrombosis) Former smoker HTN (hypertension) Osteoporosis Stroke/cerebrovascular accident Home Medications albuterol sulfate 90 mcg/actuation aerosol inhaler 2 puff inhalation Q6H PRN shortness of breath or wheezing 11/25/23 [History Last Taken Unknown] carvedilol 3.125 mg tablet 3.125 mg PO Q12H 11/25/23 [History Last Taken 12/27/23] fluticasone 500 mcg-salmeterol 50 mcg/dose blistr powdr for inhalation 1 inh inhalation Q12H 11/25/23 [History Last Taken 11/24/23] furosemide 40 mg tablet 40 mg PO DAILY 11/25/23 [History Last Taken 12/27/23] multivitamin (Daily Multi-Vitamin tablet) 1 tab PO DAILY 11/25/23 [History Last Taken 12/27/23] nystatin 100,000 unit/gram topical cream 1 applic topical DAILY 11/25/23 [History Last Taken 12/27/23] omeprazole 40 mg capsule,delayed release 40 mg PO DAILY 11/25/23 [History Last Taken 11/24/23] heparin (porcine) 5,000 unit/mL injection solution 5,000 unit subcut Q12 #1 mL 11/29/23 [Rx Last Taken 12/27/23] ondansetron HCl 8 mg tablet 8 mg PO Q6H PRN PRN nausea and vomiting #1 TAB 11/29/23 [Rx Last Taken 12/27/23] potassium chloride 20 mEq tablet,extended release(part/cryst) 20 meq PO BIDCM #0 tabs 11/29/23 [Rx Last Taken 12/27/23] atorvastatin 20 mg tablet 20 mg PO QHS 12/27/23 [History Last Taken 12/26/23] bisacodyl 10 mg rectal suppository 10 mg IN DAILY PRN constipation 12/27/23 [History Last Taken 12/26/23] food supplemt, lactose-reduced 0.08 gram-1.5 kcal/mL oral liquid (Ensure Plus High Protein) 120 ml PO 4X/DAY #0 mL 01/02/24 [Rx Last Taken Unknown] insulin lispro 100 unit/mL subcutaneous pen (Humalog KwikPen (U-100) Insulin) See Protocol subcut ACHS #1 mL 01/02/24 [Rx Last Taken Unknown] lisinopril 10 mg tablet 10 mg PO DAILY #1 TAB 01/02/24 [Rx Last Taken Unknown] menthol 0.44 %-zinc oxide 20.6 % topical ointment (Calmoseptine) 1 applic topical BID #0 grams 01/02/24 [Rx Last Taken Unknown] metformin 500 mg tablet 500 mg PO BID #1 TAB 01/02/24 [Rx Last Taken Unknown] oxycodone 5 mg tablet 5 mg PO Q4H PRN PRN Pain Score 6-10 2 days #6 tabs 01/02/24 [Rx Last Taken Unknown] risperidone 0.5 mg tablet 0.5 mg PO QHS #0 tabs 01/02/24 [Rx Last Taken Unknown] Allergy/AdvReac Type Severity Reaction Status Date / Time acetaminophen [From Tylenol] Allergy Rash Verified 01/24/24 14:40 amphetamine Allergy PT UNSURE Verified 01/24/24 14:40 OF REACTION aztreonam Allergy PT UNSURE Verified 01/24/24 14:40 OF REACTION carbamazepine Allergy PT UNSURE Verified 01/24/24 14:40 OF REACTION Carbapenems Allergy PT UNSURE Verified 01/24/24 14:40 OF REACTION celecoxib Allergy PT UNSURE Verified 01/24/24 14:40 OF REACTION codeine Allergy PT UNSURE Verified 01/24/24 14:40 OF REACTION doxycycline Allergy PT UNSURE Verified 01/24/24 14:40 OF REACTION epinephrine Allergy PT UNSURE Verified 01/24/24 14:40 OF REACTION latex Allergy PT UNSURE Verified 01/24/24 14:40 OF REACTION nickel Allergy PT UNSURE Verified 01/24/24 14:40 OF REACTION Penicillins Allergy Other Verified 01/24/24 14:40 pseudoephedrine Allergy PT UNSURE Verified 01/24/24 14:40 OF REACTION saccharin Allergy PT UNSURE Verified 01/24/24 14:40 OF REACTION Sulfa (Sulfonamide Allergy PT UNSURE Verified 01/24/24 14:40 Antibiotics) OF REACTION sulfamethoxazole Allergy PT UNSURE Verified 01/24/24 14:40 [From OF REACTION Sulfamethoxazole-Trimethoprim] trimethoprim Allergy PT UNSURE Verified 01/24/24 14:40 [From OF REACTION Sulfamethoxazole-Trimethoprim] Surgical History History of appendectomy Social History household members: spouse housing: prison Smoking Status: Former smoker ROS Constitutional Constitutional: Denies anorexia or chills Eyes Eyes: Denies blurry vision ENT HEENT: Denies abnormal hearing Cardiovascular Cardiovascular: Denies chest pain Respiratory/Chest Respiratory/Chest: Denies cough or dyspnea Gastrointestinal Gastrointestinal: Reports abdominal pain; Denies nausea or vomiting Musculoskeletal Musculoskeletal: Denies abnormal gait Integumentary Integumentary: Denies jaundice Neurologic Neurologic: Denies abnormal gait Physical Exam Const oriented x3 and no apparent distress HEENT normocephalic Eyes PERRL Resp Resp Narrative: Seems short of breath Cardio Rate: regular rate Rhythm: regular rhythm GI soft to palpation Palpation: tender RUQ Extremity normal to inspection Lab / Micro Data 01/24/24 14:49 01/24/24 14:49 Labs: Laboratory Results - last 24 hr 01/24/24 14:49: WBC 11.5 H, RBC 3.67 L, Hgb 10.5 L, Hct 32.6 L, MCV 88.8, MCH 28.6, MCHC 32.2, RDW Std Deviation 46.5 H, RDW Coeff of Yasir 14.3, Plt Count 356, MPV 10.3, Immature Gran % (Auto) 0.300, Neut % (Auto) 76.2 H, Lymph % (Auto) 13.9 L, [place] % (Auto) 6.7, Eos % (Auto) 2.6, Baso % (Auto) 0.3, Absolute Neuts (auto) 8.7 H, Absolute Lymphs (auto) 1.59, Nucleated RBC % 0, Sodium 132 L, Potassium 4.5, Chloride 97 L, Carbon Dioxide 28.0, Anion Gap 7, BUN 23 H, Creatinine 1.00, Est GFR (MDRD) Af Amer 68, Est GFR (MDRD) Non-Af 56 L, BUN/Creatinine Ratio 23.1 H, Glucose 163 H, Calcium 9.5, Total Bilirubin 0.40, Direct Bilirubin 0.10, AST 17, ALT 15, Alkaline Phosphatase 76, Total Protein 6.8, Albumin 3.2, Globulin 3.6, Lipase 40 01/24/24 15:02: Lactic Acid 2.8 H*
[2024-01-24] MEDS: metroNIDAZOLE 500 MG/100 ML BAG 100 MG IV (16:29)
--- NOTE | 2024-01-24 16:33 | ED.RN ---
Pty has pressure wound, about the size of a dime, on coccyx. Pt states she feels painful with repositioning
--- NOTE | 2024-01-24 16:48 | ED.RN ---
Update given to [facility] about pt admission.
--- NOTE | 2024-01-24 17:18 | ED.RN ---
Pt soft stool x2 and passing gas. Enema held due to pt passing stool.
[2024-01-24] MEDS: Ciprofloxacin 400 MG/200 ML BAG 200 MG IV (17:32)
[2024-01-24] MEDS: Fleet Enema 133 ML RC ×2 (17:34→22:00)
[2024-01-24 19:11] LABS: Reflex Lactate? Y
--- NOTE | 2024-01-24 19:42 | PCM.HP.STD ---
HPI - General General Date of Admission: 01/24/24 HPI Narrative JEANNETTE PATEL, is a 88 F who [facility] with increasing right upper quadrant abdominal pain was found to have a leukocytosis on admission to the ER. She does have a history of a cholecystostomy tube secondary to acute cholecystitis on 12/28/2023. On arrival to the ER it does appear that her cholecystostomy tube was kinked on the outside of her abdomen and when it was straightened out and adjusted there appeared to be purulent drainage. Her previous culture demonstrated Enterobacter. General surgery was consulted and felt that this could potentially be adjusted in IR with either a new cholecystostomy tube or repositioning of the current tube [facility] Medical History Anemia Anxiety Asthma Chest pain CHF (congestive heart failure) COPD (chronic obstructive pulmonary disease) Coronary artery disease DVT (deep venous thrombosis) Former smoker HTN (hypertension) Osteoporosis Stroke/cerebrovascular accident Home Medications albuterol sulfate 90 mcg/actuation aerosol inhaler 2 puff inhalation Q6H PRN shortness of breath or wheezing 11/25/23 [History Last Taken Unknown] carvedilol 3.125 mg tablet 3.125 mg PO Q12H 11/25/23 [History Last Taken 12/27/23] fluticasone 500 mcg-salmeterol 50 mcg/dose blistr powdr for inhalation 1 inh inhalation Q12H 11/25/23 [History Last Taken 11/24/23] furosemide 40 mg tablet 40 mg PO DAILY 11/25/23 [History Last Taken 12/27/23] multivitamin (Daily Multi-Vitamin tablet) 1 tab PO DAILY 11/25/23 [History Last Taken 12/27/23] nystatin 100,000 unit/gram topical cream 1 applic topical DAILY 11/25/23 [History Last Taken 12/27/23] omeprazole 40 mg capsule,delayed release 40 mg PO DAILY 11/25/23 [History Last Taken 11/24/23] heparin (porcine) 5,000 unit/mL injection solution 5,000 unit subcut Q12 #1 mL 11/29/23 [Rx Last Taken 12/27/23] ondansetron HCl 8 mg tablet 8 mg PO Q6H PRN PRN nausea and vomiting #1 TAB 11/29/23 [Rx Last Taken 12/27/23] atorvastatin 20 mg tablet 20 mg PO QHS 12/27/23 [History Last Taken 12/26/23] bisacodyl 10 mg rectal suppository 10 mg SC DAILY PRN constipation 12/27/23 [History Last Taken 12/26/23] insulin lispro 100 unit/mL subcutaneous pen (Humalog KwikPen (U-100) Insulin) See Protocol subcut ACHS #1 mL 01/02/24 [Rx Last Taken Unknown] lisinopril 10 mg tablet 10 mg PO DAILY #1 TAB 01/02/24 [Rx Last Taken Unknown] menthol 0.44 %-zinc oxide 20.6 % topical ointment (Calmoseptine) 1 applic topical BID #0 grams 01/02/24 [Rx Last Taken Unknown] metformin 500 mg tablet 500 mg PO BID #1 TAB 01/02/24 [Rx Last Taken Unknown] ascorbic acid (vitamin C) 1,000 mg tablet (Vitamin C) 1,000 mg PO DAILY 01/24/24 [History Last Taken Unknown] potassium chloride 20 mEq tablet,extended release(part/cryst) 20 meq PO DAILY 01/24/24 [History Last Taken Unknown] Allergy/AdvReac Type Severity Reaction Status Date / Time acetaminophen [From Tylenol] Allergy Rash Verified 01/24/24 14:40 amphetamine Allergy PT UNSURE Verified 01/24/24 14:40 OF REACTION aztreonam Allergy PT UNSURE Verified 01/24/24 14:40 OF REACTION carbamazepine Allergy PT UNSURE Verified 01/24/24 14:40 OF REACTION Carbapenems Allergy PT UNSURE Verified 01/24/24 14:40 OF REACTION celecoxib Allergy PT UNSURE Verified 01/24/24 14:40 OF REACTION codeine Allergy PT UNSURE Verified 01/24/24 14:40 OF REACTION doxycycline Allergy PT UNSURE Verified 01/24/24 14:40 OF REACTION epinephrine Allergy PT UNSURE Verified 01/24/24 14:40 OF REACTION latex Allergy PT UNSURE Verified 01/24/24 14:40 OF REACTION nickel Allergy PT UNSURE Verified 01/24/24 14:40 OF REACTION Penicillins Allergy Other Verified 01/24/24 14:40 pseudoephedrine Allergy PT UNSURE Verified 01/24/24 14:40 OF REACTION saccharin Allergy PT UNSURE Verified 01/24/24 14:40 OF REACTION Sulfa (Sulfonamide Allergy PT UNSURE Verified 01/24/24 14:40 Antibiotics) OF REACTION sulfamethoxazole Allergy PT UNSURE Verified 01/24/24 14:40 [From OF REACTION Sulfamethoxazole-Trimethoprim] trimethoprim Allergy PT UNSURE Verified 01/24/24 14:40 [From OF REACTION Sulfamethoxazole-Trimethoprim] Family History no significant family his no significant family history Surgical History History of appendectomy Social History household members: spouse housing: [facility] Smoking Status: Former smoker ROS Constitutional Constitutional: Denies chills, fatigue, fever(s) or malaise Eyes Eyes: Denies blurry vision ENT HEENT: Denies headache(s) or nasal discharge Cardiovascular Cardiovascular: Denies chest pain, dyspnea on exertion or syncope Respiratory/Chest Respiratory/Chest: Denies cough, shortness of breath at rest or shortness of breath with exertion Gastrointestinal Gastrointestinal: Reports abdominal pain; Denies constipation, diarrhea, nausea or vomiting Genitourinary Genitourinary: Denies dysuria Neurologic Neurologic: Denies focal weakness, numbness or tremor(s) Psychiatric Psychiatric: Denies anxiety or depression Vital Signs Vital Signs Vital Signs: 01/24/24 14:15 01/24/24 14:17 01/24/24 15:17 Temperature 98 F 98 F 98 F Temperature Source Oral Oral Oral Pulse Rate 69 69 75 Respiratory Rate 20 H 20 H 28 H Blood Pressure 135/58 H 135/58 H 132/70 H Blood Pressure Mean 83 83 90 Pulse Ox 96 96 98 Oxygen Delivery Method Nasal Cannula Nasal Cannula Room Air Oxygen Flow Rate (L/min) 3 3 01/24/24 16:00 01/24/24 17:11 01/24/24 17:00 Temperature 98 F 98 F 98 F Temperature Source Oral Oral Pulse Rate 71 75 75 Respiratory Rate 19 H 18 18 Blood Pressure 146/70 H 138/86 H 138/86 H Blood Pressure Mean 95 103 103 Pulse Ox 95 95 95 Oxygen Delivery Method Nasal Cannula Nasal Cannula Oxygen Flow Rate (L/min) 3 3 Weight Weight: 182 lb 12.211 oz Body Mass Index (BMI) 35.6 Physical Exam Narrative General: Alert, Oriented x3, Cooperative, No apparent distress HEENT: Atraumatic, PERRLA, EOMI, Normocephalic Oral: Moist Mucosa Neck: Supple, No JVD Lungs: Diminished, Normal air movement, No rhonchi, No wheeze, No rales Cardiovascular: Regular rate, Regular Rhythm, Normal S1, Normal S2, No murmurs Abdomen: Soft, slightly tender RUQ, Non-Distended, No Hepato-splenomegaly, cholecystostomy tube present Extremities: No edema, Capillary Refill Less than 3 Seconds Skin: No rashes, No breakdown Musculoskeletal: No Tenderness to Palpation of Joints or Extremities Neurological: No focal neurological deficits, Motor Exam 5/5 strength throughout, Sensory exam intact to light touch and pain Psych/Mental Status: Flat Results Lab / Micro Data 01/24/24 14:49 01/24/24 14:49 Labs: Laboratory Results - last 24 hr 01/24/24 14:49: WBC 11.5 H, RBC 3.67 L, Hgb 10.5 L, Hct 32.6 L, MCV 88.8, MCH 28.6, MCHC 32.2, RDW Std Deviation 46.5 H, RDW Coeff of Yasir 14.3, Plt Count 356, MPV 10.3, Immature Gran % (Auto) 0.300, Neut % (Auto) 76.2 H, Lymph % (Auto) 13.9 L, [place] % (Auto) 6.7, Eos % (Auto) 2.6, Baso % (Auto) 0.3, Absolute Neuts (auto) 8.7 H, Absolute Lymphs (auto) 1.59, Nucleated RBC % 0, Sodium 132 L, Potassium 4.5, Chloride 97 L, Carbon Dioxide 28.0, Anion Gap 7, BUN 23 H, Creatinine 1.00, Est GFR (MDRD) Af Amer 68, Est GFR (MDRD) Non-Af 56 L, BUN/Creatinine Ratio 23.1 H, Glucose 163 H, Calcium 9.5, Total Bilirubin 0.40, Direct Bilirubin 0.10, AST 17, ALT 15, Alkaline Phosphatase 76, Total Protein 6.8, Albumin 3.2, Globulin 3.6, Lipase 40 01/24/24 15:02: Lactic Acid 2.8 H* Imaging Radiology Impression Abdomen/Pelvis CT 01/24/24 15:42 IMPRESSION: 1. Cholecystostomy tube in stable position. There has been no significant change from the reference exam. 2. Large amount of stool in rectum compatible with fecal impaction. There is also stool seen throughout the colon compatible with constipation. Electronically Signed: Suleman Carolina MD at 16:42 EDT , Assessment & Plan Assessment/Plan (1) Cholecystitis: PLAN: Plan 1. Cholecystitis secondary to cholecystostomy tube being obstructed ? This was straightened out with continued purulent drainage by general surgery ? Will order fluoroscopy and guidewire change the tube by IR tomorrow morning ? Continue the full liquid diet ? Continue with Cipro as her previous cultures demonstrated Enterobacter 2. Essential HTN/HLD/CAD ? Blood pressure stable ? Can resume her home blood pressure medications ? Continue with her home cholesterol medications ? We will monitor make adjustments as necessary 3. DM2/CKD 3a ? Can resume her home sliding scale insulin ? Accu-Cheks ACHS ? Will monitor make adjustments as necessary 4. GERD ? Stable ? Continue with PPI DVT: Heparin 75 minutes was spent on direct patient care, including documentation as well as chart review and collaboration with colleagues Charges/Coding Visit Charges Inpatient E&M: 44615 Init Hosp L3
[2024-01-24 21:00] LABS: Lactic Acid 2.9 mmol/L (0.4-1.9)
[2024-01-24] MEDS: Menthol/Lanolin/Calamine/Znox 113 GM Tube 1 APPLIC TOPICAL (23:43)
[2024-01-24] MEDS: Atorvastatin Calcium 20 MG Tablet PO (23:44)
[2024-01-24] MEDS: Heparin Injection (Vial) 5,000 UNIT/ML VIAL 5000 UNIT SC (23:44)
[2024-01-24] MEDS: Carvedilol 3.125 MG TABLET PO (23:44)
[2024-01-25 00:58] LABS: Bedside Glucose 145 mg/dL (74-106)
[2024-01-25] MEDS: Bisacodyl 10 MG Suppository RC (02:23)
[2024-01-25 02:29] VITALS: BP 130/50; PULSE 62; RESP 16; TEMP 36.7; O2SAT 99
[2024-01-25 07:02] LABS: Bedside Glucose 169 mg/dL (74-106)
[2024-01-25 07:11] LABS: Absolute Lymphocyte Count 1.19 X10^3/uL (0.83-4.51); Absolute Neutrophil Count 6.6 X10^3/uL (2.0-7.7); Basophil# 0.03 X10^3/uL; Basophil% 0.3 % (0-1); Eosinophil# 0.21 X10^3/uL; Eosinophils% 2.4 % (0-5); Hematocrit 28.8 % (37-47); Hemoglobin 9.1 g/dL (12.0-15.0); Lymphocyte # 1.19 X10^3/ul (0.83-4.51); Lymphocyte % 13.6 % (19-41); Mean Corp Hgb Conc 31.6 g/dL (32-36); Mean Corpuscular Hgb 28.3 pg (27.0-32.0); Mean Corpuscular Volume 89.4 fL (81-99); Mean Platelet Vol. 9.9 fl (6.2-12.0); Monocyte# 0.65 X10^3/uL; Monocyte% 7.4 % (0-10); NRBC Flagged by Analyzer 0 % (0-5); Neutrophil # 6.63 X10^3/uL (2.7-7.7); Neutrophil % 75.8 % (47-70); Platelet Count 280 K/mm3 (150-450); RBC Distribution Width CV 14.5 % (11.6-14.6); Red Blood Count 3.22 M/mm3 (4.2-5.4); White Blood Count 8.8 K/mm3 (4.4-11.0)
[2024-01-25 07:49] LABS: Anion Gap 5 (5-15); BUN 20 mg/dL (7-18); BUN/Creat Ratio 20.1 RATIO (10-20); Calcium,Total 9.3 mg/dL (8.5-10.1); Chloride 102 mmol/L (98-107); Creatinine, Serum 0.99 mg/dL (0.55-1.02); EST Glomerular Filtration Rate 56 mL/min (>60); Est Glom Filt Rate - Afr Amer 68 mL/min (>60); Estimated Creatinine Clearance 38.21 ml/min; Glucose 164 mg/dL (74-106); Sodium Level 136 mmol/L (136-145)
--- NOTE | 2024-01-25 08:08 | PN.SURG_ITS ---
Subjective Subjective Patient is an 88 y/o F I am following in conjunction with Dr. Herrera. She was evaluate dressing comfortably in bed. She seemed very lethargic this morning. She notes abdominal pain however is unable to show us where her pain is at. Objective Data Objective Data Vital Signs: Vital Signs Temp Pulse Resp BP Pulse Ox O2 Del Method O2 Flow Rate 98.1 F 62 16 130/50 H 99 Nasal Cannula 3 01/25/24 02:29 01/25/24 02:29 01/25/24 02:29 01/25/24 02:29 01/25/24 02:01/25/24 02:01/25/24 02:29 Oxygen Flow Rate (L/min) 3 Oxygen Delivery Method Nasal Cannula Weight: 182 lb 12.211 oz Body Mass Index (BMI) 35.6 Intake & Output: Intake and Output for Last 24 Hours 01/23/24 01/24/24 01/25/24 23:59 23:59 23:59 Intake Total 1300 / 1300 Output Total 430 / 430 Balance 1300 / 1270 -430 / -430 Lab / Micro Data 01/25/24 06:53 01/25/24 06:53 Labs: Laboratory Results - last 24 hr 01/24/24 14:49: WBC 11.5 H, RBC 3.67 L, Hgb 10.5 L, Hct 32.6 L, MCV 88.8, MCH 28.6, MCHC 32.2, RDW Std Deviation 46.5 H, RDW Coeff of Yasir 14.3, Plt Count 356, MPV 10.3, Immature Gran % (Auto) 0.300, Neut % (Auto) 76.2 H, Lymph % (Auto) 13.9 L, [place] % (Auto) 6.7, Eos % (Auto) 2.6, Baso % (Auto) 0.3, Absolute Neuts (auto) 8.7 H, Absolute Lymphs (auto) 1.59, Nucleated RBC % 0, Sodium 132 L, Potassium 4.5, Chloride 97 L, Carbon Dioxide 28.0, Anion Gap 7, BUN 23 H, Creatinine 1.00, Est GFR (MDRD) Af Amer 68, Est GFR (MDRD) Non-Af 56 L, BUN/Creatinine Ratio 23.1 H, Glucose 163 H, Calcium 9.5, Total Bilirubin 0.40, Direct Bilirubin 0.10, AST 17, ALT 15, Alkaline Phosphatase 76, Total Protein 6.8, Albumin 3.2, Globulin 3.6, Lipase 40 01/24/24 15:02: Lactic Acid 2.8 H* 01/24/24 19:59: Lactic Acid 2.9 H* 01/24/24 23:41: POC Glucose 145 H 01/25/24 06:36: POC Glucose 169 H 01/25/24 06:53: WBC 8.8, RBC 3.22 L, Hgb 9.1 L, Hct 28.8 L, MCV 89.4, MCH 28.3, MCHC 31.6 L, RDW Std Deviation 47.0 H, RDW Coeff of Yasir 14.5, Plt Count 280, MPV 9.9, Immature Gran % (Auto) 0.500, Neut % (Auto) 75.8 H, Lymph % (Auto) 13.6 L, [place] % (Auto) 7.4, Eos % (Auto) 2.4, Baso % (Auto) 0.3, Absolute Neuts (auto) 6.6, Absolute Lymphs (auto) 1.19, Nucleated RBC % 0, Sodium 136, Potassium 4.0, Chloride 102, Carbon Dioxide 29.0, Anion Gap 5, BUN 20 H, Creatinine 0.99, Estim Creat Clear Calc 38.21, Est GFR (MDRD) Af Amer 68, Est GFR (MDRD) Non-Af 56 L, BUN/Creatinine Ratio 20.1 H, Glucose 164 H, Calcium 9.3 Radiography Diagnostic Testing: Radiology Impression Abdomen/Pelvis CT 01/24/24 15:42 IMPRESSION: 1. Cholecystostomy tube in stable position. There has been no significant change from the reference exam. 2. Large amount of stool in rectum compatible with fecal impaction. There is also stool seen throughout the colon compatible with constipation. Electronically Signed: Suleman Carolina MD at 16:42 EDT , Physical Exam GI GI Narrative: Abdomen- soft, obese. Non-tender to palpation. Hypoactive bowel sounds. Beto tube intact with sutures however appears as though the tube has pulled out some. There appears to be green bile within the bulb. Assessment & Plan Assessment/Plan (1) Cholecystitis: PLAN: I am following this patient in conjunction with Dr. Herrera. He has independently evaluated this patient. Plan for beto tube exchange today We will continue to monitor this patient Charges/Coding Visit Charges Inpatient E&M: 48830 Subs Hosp L1
[2024-01-25 08:20] VITALS: BP 98/50; PULSE 60; RESP 16; TEMP 36.7; O2SAT 100
[2024-01-25] MEDS: Lidocaine 2% (20 ml mdv) 20 ML Vial (09:10)
--- NOTE | 2024-01-25 09:15 | CASEMGMT ---
Addendum entered by Elizabeth Tai 01/25/24 09:45: [facility] replied pt is able to return to facility when ready. LIONEL Mcconnell Original Note: Social Work Sent clinical updates to [facility] through [facility] and asked if pt. is able to return to facility. LIONEL Mcconnell
--- NOTE | 2024-01-25 09:26 | PN.HOSP_ITS ---
Reason for Visit Reason for Visit: Diagnoses Cholecystitis, unspecified (01/24/24) Objective Data Objective Data Vital Signs: Vital Signs Temp Pulse Resp BP Pulse Ox O2 Del Method O2 Flow Rate 98.1 F 60 16 98/50 L 100 Room Air 3 01/25/24 08:20 01/25/24 08:20 01/25/24 08:20 01/25/24 08:20 01/25/24 08:20 01/25/24 08:20 01/25/24 02:29 Oxygen Flow Rate (L/min) 3 Oxygen Delivery Method Room Air Weight: 182 lb 12.211 oz Body Mass Index (BMI) 35.6 Intake & Output: Intake and Output for Last 24 Hours 01/23/24 01/24/24 01/25/24 23:59 23:59 23:59 Intake Total 1300 / 1300 Output Total 430 / 430 Balance 1300 / 1270 -430 / -430 Lab / Micro Data 01/25/24 06:53 01/25/24 06:53 Labs: Laboratory Results - last 24 hr 01/24/24 14:49: WBC 11.5 H, RBC 3.67 L, Hgb 10.5 L, Hct 32.6 L, MCV 88.8, MCH 28.6, MCHC 32.2, RDW Std Deviation 46.5 H, RDW Coeff of Yasir 14.3, Plt Count 356, MPV 10.3, Immature Gran % (Auto) 0.300, Neut % (Auto) 76.2 H, Lymph % (Auto) 13.9 L, [place] % (Auto) 6.7, Eos % (Auto) 2.6, Baso % (Auto) 0.3, Absolute Neuts (auto) 8.7 H, Absolute Lymphs (auto) 1.59, Nucleated RBC % 0, Sodium 132 L, Potassium 4.5, Chloride 97 L, Carbon Dioxide 28.0, Anion Gap 7, BUN 23 H, Creatinine 1.00, Est GFR (MDRD) Af Amer 68, Est GFR (MDRD) Non-Af 56 L, BUN/Creatinine Ratio 23.1 H, Glucose 163 H, Calcium 9.5, Total Bilirubin 0.40, Direct Bilirubin 0.10, AST 17, ALT 15, Alkaline Phosphatase 76, Total Protein 6.8, Albumin 3.2, Globulin 3.6, Lipase 40 01/24/24 15:02: Lactic Acid 2.8 H* 01/24/24 19:59: Lactic Acid 2.9 H* 01/24/24 23:41: POC Glucose 145 H 01/25/24 06:36: POC Glucose 169 H 01/25/24 06:53: WBC 8.8, RBC 3.22 L, Hgb 9.1 L, Hct 28.8 L, MCV 89.4, MCH 28.3, MCHC 31.6 L, RDW Std Deviation 47.0 H, RDW Coeff of Yasir 14.5, Plt Count 280, MPV 9.9, Immature Gran % (Auto) 0.500, Neut % (Auto) 75.8 H, Lymph % (Auto) 13.6 L, [place] % (Auto) 7.4, Eos % (Auto) 2.4, Baso % (Auto) 0.3, Absolute Neuts (auto) 6.6, Absolute Lymphs (auto) 1.19, Nucleated RBC % 0, Sodium 136, Potassium 4.0, Chloride 102, Carbon Dioxide 29.0, Anion Gap 5, BUN 20 H, Creatinine 0.99, Estim Creat Clear Calc 38.21, Est GFR (MDRD) Af Amer 68, Est GFR (MDRD) Non-Af 56 L, BUN/Creatinine Ratio 20.1 H, Glucose 164 H, Calcium 9.3 Radiography Diagnostic Testing: Radiology Impression Abdomen/Pelvis CT 01/24/24 15:42 IMPRESSION: 1. Cholecystostomy tube in stable position. There has been no significant change from the reference exam. 2. Large amount of stool in rectum compatible with fecal impaction. There is also stool seen throughout the colon compatible with constipation. Electronically Signed: Suleman Carolina MD at 16:42 EDT , Assessment & Plan Assessment/Plan (1) Cholecystitis: PLAN: Plan 84-year-old female came to ED with abdominal pain for last couple days with recent cholecystostomy tube placed by Dr. Delaney about a month ago. Patient stated that her tube might have been kinked. No fever or chills. 1. Cholecystitis secondary to cholecystostomy tube kink/obstruction: Patient is being admitted versus floor. General surgery was consulted and tube was straightened. In the morning, patient had change in the cholecystostomy tube. It was done under local anesthesia lidocaine and patient also had morphine yesterday in ED. Patient currently very sleepy and lethargic. States he does not have abdominal pain. Patient had leukocytosis mild 11.5 thousand with neutrophils 76%. Repeat CBC normal. Lactic acid elevated but patient does not seem sepsis. Sepsis ruled out. Continue IV Cipro and Flagyl. Continue liquid diet when patient is awake 2. Severe constipation/rectal impaction: CT abdomen shows large amount of stool in rectum compatible with fecal impaction. Patient had 2 doses of Fleet enema. 3. CAD: Patient on carvedilol, lisinopril, atorvastatin and furosemide 40 mg d aily and potassium supplement. Continued. No acute chest pain or shortness of breath. 4. Essential HTN: Blood pressure in normal range 5. Dyslipidemia: As mentioned above 6. 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 BUNs/creatinine normal range. Estimated GFR 6080 mill per hour. Glucose about 150s. 7 GERD: Continue with PPI 8. Acute encephalopathy most likely due to opioid pain medication and lidocai ne: Monitor. Avoid any sedative. DVT: Heparin 5000 unit every 12 hourly. Please change orders in the status to inpatient. Patient is lethargic while sleepy related to pain medication and lidocaine. Charges/Coding Visit Charges Inpatient E&M: 68495 Subs Hosp L2
--- NOTE | 2024-01-25 09:30 | RAD_ITS ---
PROCEDURE: Percutaneous cholecystostomy tube exchange. DATE OF EXAMINATION: January 25, 2024. INDICATION: Female, 88 years old. Cholecystitis. PHYSICIAN: Dr. Lennon. FLUOROSCOPY TIME (if supplied): (1 minute and 30 seconds) minutes/seconds. 26.83 mGy. 4 images were obtained. RAD/Fluoro Guided Needle Placement IMPRESSION: Under fluoroscopic guidance, the indwelling 8 [place] percutaneous catheter was replaced. The patient tolerated the procedure well. Electronically Signed: Edgardo Lennon MD at 10:08 EDT ,
--- NOTE | 2024-01-25 10:15 | CASEMGMT ---
Social Work SW attempted to meet with patient to discuss DC plans. Pt opened eyes a couple times but did not respond to this worker. SW then called to confirm plan to return to [facility]. stated that he does want pt to return to [facility] at [place]. Elizabeth FLOWERS
[2024-01-25] MEDS: Ciprofloxacin 400 MG/200 ML BAG 200 MG IV ×2 (10:49→21:47)
[2024-01-25] MEDS: Potassium Chloride Oral Tablet 20 MEQ PO (10:54)
[2024-01-25] MEDS: Carvedilol 3.125 MG TABLET PO ×2 (10:55→21:48)
[2024-01-25] MEDS: Furosemide 40 MG Tablet PO (10:55)
[2024-01-25] MEDS: Pantoprazole Sodium 40 MG Tablet PO (10:55)
[2024-01-25] MEDS: Menthol/Lanolin/Calamine/Znox 113 GM Tube 1 APPLIC TOPICAL ×4 (10:55→21:48)
[2024-01-25] MEDS: Heparin Injection (Vial) 5,000 UNIT/ML VIAL 5000 UNIT SC ×2 (10:55→21:49)
[2024-01-25] MEDS: Insulin Lispro 100 UNIT/ML INSULN.PEN SC ×2 (12:23→21:49)
[2024-01-25 12:41] LABS: Bedside Glucose 157 mg/dL (74-106)
--- NOTE | 2024-01-25 14:38 | WOUNDNOTE ---
wound phoro: sacrum
[2024-01-25 16:00] VITALS: BP 98/46; PULSE 65; RESP 14; TEMP 36.8; O2SAT 95
[2024-01-25] MEDS: Lisinopril 10 MG Tablet PO (16:04)
[2024-01-25 16:40] LABS: Bedside Glucose 154 mg/dL (74-106)
[2024-01-25 19:20] VITALS: PULSE 70; RESP 20; O2SAT 94
[2024-01-25] MEDS: Budesonide Respules 0.5 MG/2 ML AMPUL.NEB. INHALATION (19:20)
[2024-01-25] MEDS: Albuterol 2.5 MG/3 ML VIAL.NEB. INHALATION (19:20)
[2024-01-25 21:40] VITALS: BP 99/50; PULSE 66; RESP 18; TEMP 36.6; O2SAT 96
[2024-01-25] MEDS: Atorvastatin Calcium 20 MG Tablet PO (21:49)
[2024-01-25 23:54] LABS: Bedside Glucose 169 mg/dL (74-106)
[2024-01-26] VITALS (9 sets, daily range): BP systolic 112–141; BP diastolic 59–76; PULSE 59–66; RESP 18–20; TEMP 36.2–36.6; O2SAT 95–100
[2024-01-26] MEDS: Insulin Lispro 100 UNIT/ML INSULN.PEN SC ×2 (06:42→11:34)
[2024-01-26 06:51] LABS: Bedside Glucose 155 mg/dL (74-106)
[2024-01-26] MEDS: Albuterol 2.5 MG/3 ML VIAL.NEB. INHALATION ×3 (07:23→19:30)
[2024-01-26] MEDS: Budesonide Respules 0.5 MG/2 ML AMPUL.NEB. INHALATION ×2 (07:23→19:30)
[2024-01-26 07:36] LABS: Absolute Lymphocyte Count 1.26 X10^3/uL (0.83-4.51); Absolute Neutrophil Count 5.7 X10^3/uL (2.0-7.7); Basophil# 0.03 X10^3/uL; Basophil% 0.4 % (0-1); Eosinophil# 0.27 X10^3/uL; Eosinophils% 3.4 % (0-5); Hematocrit 30.3 % (37-47); Hemoglobin 9.7 g/dL (12.0-15.0); Lymphocyte # 1.26 X10^3/ul (0.83-4.51); Lymphocyte % 15.7 % (19-41); Mean Corpuscular Hgb 28.8 pg (27.0-32.0); Mean Corpuscular Volume 89.9 fL (81-99); Monocyte# 0.71 X10^3/uL; Monocyte% 8.8 % (0-10); NRBC Flagged by Analyzer 0 % (0-5); Neutrophil # 5.74 X10^3/uL (2.7-7.7); Neutrophil % 71.2 % (47-70); Platelet Count 305 K/mm3 (150-450); RBC Distribution Width CV 14.4 % (11.6-14.6); RBC Distribution Width SD 47.7 fl (35.1-43.9); Red Blood Count 3.37 M/mm3 (4.2-5.4); White Blood Count 8.1 K/mm3 (4.4-11.0)
[2024-01-26] MEDS: Carvedilol 3.125 MG TABLET PO ×2 (08:48→22:22)
[2024-01-26] MEDS: Pantoprazole Sodium 40 MG Tablet PO (08:48)
[2024-01-26] MEDS: Potassium Chloride Oral Tablet 20 MEQ PO (08:48)
[2024-01-26] MEDS: Heparin Injection (Vial) 5,000 UNIT/ML VIAL 5000 UNIT SC ×2 (08:48→22:22)
[2024-01-26] MEDS: Ascorbic Acid 500 MG Tablet 1000 MG PO (08:48)
[2024-01-26] MEDS: Furosemide 40 MG Tablet PO (08:48)
[2024-01-26] MEDS: Menthol/Lanolin/Calamine/Znox 113 GM Tube 1 APPLIC TOPICAL ×4 (08:49→22:21)
[2024-01-26] MEDS: Lisinopril 10 MG Tablet PO (08:51)
[2024-01-26] MEDS: 0.9% Saline Lock 10 ML Syringe IV (08:55)
[2024-01-26 08:56] LABS: Anion Gap 6 (5-15); BUN 20 mg/dL (7-18); BUN/Creat Ratio 18.7 RATIO (10-20); Calcium,Total 8.7 mg/dL (8.5-10.1); Chloride 102 mmol/L (98-107); Creatinine, Serum 1.07 mg/dL (0.55-1.02); EST Glomerular Filtration Rate 52 mL/min (>60); Est Glom Filt Rate - Afr Amer 62 mL/min (>60); Estimated Creatinine Clearance 35.35 ml/min; Glucose 169 mg/dL (74-106); Potassium 4.1 mmol/L (3.5-5.1); Sodium Level 134 mmol/L (136-145)
--- NOTE | 2024-01-26 11:25 | CASEMGMT ---
Addendum entered by Elizabeth Tai 01/26/24 13:33: [facility] replied: Patient is usp with us, and we can eval her once she returns to see about therapy. I believe she has the brace on her foot from her ankle fx that she initially admitted to us with. Elizabeth FLOWERS Original Note: Social Work SW sent updated clinical information to [facility] through [facility] and updated [facility] that pt will not be discharged today. Elizabeth FLOWERS
[2024-01-26 11:54] LABS: Bedside Glucose 171 mg/dL (74-106)
--- NOTE | 2024-01-26 13:21 | CASEMGMT ---
Social Work As per [facility], pt is senior care there at this time, they do not need therapy for her to return. [facility] can have her assessed when she returns. will continue to follow for return to [facility] when ready. JUNI Obrien
--- NOTE | 2024-01-26 15:21 | PN.HOSP_ITS ---
Reason for Visit Reason for Visit: Diagnoses Cholecystitis, unspecified (01/25/24) Objective Data Objective Data Vital Signs: Vital Signs Temp Pulse Resp BP Pulse Ox O2 Del Method O2 Flow Rate 97.2 F L 59 L 18 112/59 L 97 Nasal Cannula 2 01/26/24 14:42 01/26/24 14:42 01/26/24 14:42 01/26/24 14:42 01/26/24 14:42 01/26/24 14:42 01/26/24 14:42 Oxygen Flow Rate (L/min) 2 Oxygen Delivery Method Nasal Cannula Weight: 182 lb 12.211 oz Body Mass Index (BMI) 35.6 Intake & Output: Intake and Output for Last 24 Hours 01/24/24 01/25/24 01/26/24 23:59 23:59 23:59 Intake Total 1300 / 1300 200 / 350 450 / 450 Output Total 520 / 770 1530 / 1530 Balance 1300 / 1270 -320 / -420 -1080 / -1080 Lab / Micro Data 01/26/24 07:07 01/26/24 07:07 Labs: Laboratory Results - last 24 hr 01/25/24 16:08: POC Glucose 154 H 01/25/24 21:46: POC Glucose 169 H 01/26/24 06:02: POC Glucose 155 H 01/26/24 07:07: WBC 8.1, RBC 3.37 L, Hgb 9.7 L, Hct 30.3 L, MCV 89.9, MCH 28.8, MCHC 32.0, RDW Std Deviation 47.7 H, RDW Coeff of Yasir 14.4, Plt Count 305, MPV 10.0, Immature Gran % (Auto) 0.500, Neut % (Auto) 71.2 H, Lymph % (Auto) 15.7 L, Hand % (Auto) 8.8, Eos % (Auto) 3.4, Baso % (Auto) 0.4, Absolute Neuts (auto) 5.7, Absolute Lymphs (auto) 1.26, Nucleated RBC % 0, Sodium 134 L, Potassium 4.1, Chloride 102, Carbon Dioxide 26.0, Anion Gap 6, BUN 20 H, Creatinine 1.07 H , Estim Creat Clear Calc 35.35, Est GFR (MDRD) Af Amer 62, Est GFR (MDRD) Non-Af 52 L, BUN/Creatinine Ratio 18.7, Glucose 169 H, Calcium 8.7 01/26/24 11:29: POC Glucose 171 H Physical Exam Narrative Seen and examined. Patient had cholecystostomy tube exchanged over the guidewire by IR. Patient still has right upper quadrant pain but no fever. Physical exam General: Alert, Oriented x3, Cooperative HEENT: Atraumatic, PERRLA, EOMI, Normocephalic Oral: No Gingival or Mucosal Lesions/ Ulcerations Neck: Supple, No JVD, Negative Carotid Bruits Chest wall/Lungs: Air entry diminished in bilateral lung bases. No crepitation/rhonchi Cardiovascular: Regular rate, Regular Rhythm, Normal S1, Normal S2, No M/G/R Abdomen: Bowel Sounds Present, Soft, mild tenderness over right upper quadrant. New cholecystostomy tube. Non-Distended : No dysuria. No renal angle tenderness. No suprapubic tenderness. Extremities: No edema, Capillary Refill Less than 3 Seconds Skin: No rashes, No breakdown Musculoskeletal: No Tenderness to Palpation of Joints or Extremities Neurological: Cranial nerves II-XII grossly intact, DTR 2+/4. No acute focal neurological deficit. Psych/Mental Status: Flat affect. In pain Assessment & Plan Assessment/Plan (1) Cholecystitis: PLAN: Plan 84-year-old female came to ED with abdominal pain for last couple days with recent cholecystostomy tube placed by Dr. Delaney about a month ago. Patient stated that her tube might have been kinked. No fever or chills. 1. Cholecystitis secondary to cholecystostomy tube kink/obstruction: Patient is being admitted versus floor. General surgery was consulted and tube was straightened. In the morning, patient had change in the cholecystostomy tube. It was done under local anesthesia lidocaine and patient also had morphine yesterday in ED. Patient currently very sleepy and lethargic. States he does not have abdominal pain. Patient had leukocytosis mild 11.5 thousand with ne utrophils 76%. Repeat CBC normal. Lactic acid elevated but patient does not seem sepsis. Sepsis ruled out. Continue IV Cipro and Flagyl. Continue liquid diet when patient is awake /11: Previous 12/27 deep wound culture shows Enterobacter cloacae, sensitive to Cipro.Patient does not have good IV line therefore antibiotics changed to oral Cipro and Flagyl. 2. Severe constipation/rectal impaction: CT abdomen shows large amount of stool in rectum compatible with fecal impaction. Patient had 2 doses of Fleet enema. 01/25: Monitor bowel movement. Patient on senna S2 tablet twice daily, Dulcolax oral and suppository. 3. CAD: Patient on carvedilol, lisinopril, atorvastatin and furosemide 40 mg daily and potassium supplement. Continued. No acute chest pain or shortness of breath. 4. Essential HTN: Blood pressure in normal range 5. Dyslipidemia: As mentioned above 6. 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 BUNs/creatinine normal range. Estimated GFR 6080 mill per hour. Glucose about 150s. 7 GERD: Continue with PPI 8. Acute encephalopathy most likely due to opioid pain medication and li docaine: Monitor. Avoid any sedative. DVT: Heparin 5000 unit every 12 hourly. Please change orders in the status to inpatient. Patient is lethargic while sleepy related to pain medication and lidocaine. Charges/Coding Visit Charges Inpatient E&M: 01317 Subs Hosp L2
[2024-01-26] MEDS: Ciprofloxacin 500 MG Tablet PO ×2 (15:25→22:22)
--- NOTE | 2024-01-26 15:28 | PN.SURG_ITS ---
Subjective Subjective Patient seen and examined during AM rounds. She is initially drowsy but shares that her abdominal pain is improved. Her is in the room later in the day and states that he is torn the pieces by having to listen to his complaining of pain from her buttocks. Objective Data Objective Data Vital Signs: Vital Signs Temp Pulse Resp BP Pulse Ox O2 Del Method O2 Flow Rate 97.2 F L 59 L 18 112/59 L 97 Nasal Cannula 2 01/26/24 14:42 01/26/24 14:42 01/26/24 14:42 01/26/24 14:42 01/26/24 14:42 01/26/24 14:42 01/26/24 14:42 Oxygen Flow Rate (L/min) 2 Oxygen Delivery Method Nasal Cannula Weight: 182 lb 12.211 oz Body Mass Index (BMI) 35.6 Intake & Output: Intake and Output for Last 24 Hours 01/24/24 01/25/24 01/26/24 23:59 23:59 23:59 Intake Total 1300 / 1300 200 / 350 450 / 450 Output Total 520 / 770 1530 / 1530 Balance 1300 / 1270 -320 / -420 -1080 / -1080 Lab / Micro Data 01/26/24 07:07 01/26/24 07:07 Labs: Laboratory Results - last 24 hr 01/25/24 16:08: POC Glucose 154 H 01/25/24 21:46: POC Glucose 169 H 01/26/24 06:02: POC Glucose 155 H 01/26/24 07:07: WBC 8.1, RBC 3.37 L, Hgb 9.7 L, Hct 30.3 L, MCV 89.9, MCH 28.8, MCHC 32.0, RDW Std Deviation 47.7 H, RDW Coeff of Yasir 14.4, Plt Count 305, MPV 10.0, Immature Gran % (Auto) 0.500, Neut % (Auto) 71.2 H, Lymph % (Auto) 15.7 L, [place] % (Auto) 8.8, Eos % (Auto) 3.4, Baso % (Auto) 0.4, Absolute Neuts (auto) 5.7, Absolute Lymphs (auto) 1.26, Nucleated RBC % 0, Sodium 134 L, Potassium 4.1, Chloride 102, Carbon Dioxide 26.0, Anion Gap 6, BUN 20 H, Creatinine 1.07 H , Estim Creat Clear Calc 35.35, Est GFR (MDRD) Af Amer 62, Est GFR (MDRD) Non-Af 52 L, BUN/Creatinine Ratio 18.7, Glucose 169 H, Calcium 8.7 01/26/24 11:29: POC Glucose 171 H Physical Exam Const Constitutional Narrative: Oriented to person, cooperative Resp normal respiratory effort GI GI Narrative: Mildly distended, cholecystostomy tube in right upper quadrant is unkinked at the skin, however the clear tubing leading into the HAYDEN bulb was kinked at the bed sheets. The bilious drainage from this tube appears to be clearing rapidly. There is no GLORIA tube tenderness Assessment & Plan Assessment/Plan (1) Cholecystitis: PLAN: Patient postprocedure day 1 from cholecystostomy tube exchange. She is doing well clinically with no significant right upper quadrant discomfort. Her tube appears to be functioning well and there is no kinking at the drain dressing. However, care providers will have to be on guard as the tubing coming from the primary drain site is also prone to kinking and patient's bedding. Both patient and their family's complaint today revolves around a painful decubitus ulcer wound. I have offered to try to procure a trapeze bar so that t he patient is able to offload this area more easily. From a surgical standpoint patient could be discharged back to her facility once medically cleared by hospitalist service. Charges/Coding Visit Charges Inpatient E&M: 95835 Subs Hosp L2
[2024-01-26] MEDS: Senna/Docusate Sodium 1 Tablet 2 TABLET PO ×2 (17:20→22:22)
[2024-01-26] MEDS: oxyCODONE 5 MG Tablet PO (17:20)
[2024-01-26] MEDS: Bisacodyl 5 MG Tablet PO (17:20)
[2024-01-26 17:27] LABS: Bedside Glucose 138 mg/dL (74-106)
[2024-01-26] MEDS: metroNIDAZOLE 500 MG Tablet PO (22:22)
[2024-01-26] MEDS: Atorvastatin Calcium 20 MG Tablet PO (22:23)
[2024-01-26 22:58] LABS: Bedside Glucose 150 mg/dL (74-106)
[2024-01-27 04:10] VITALS: BP 104/54; PULSE 58; RESP 18; TEMP 36.6; O2SAT 94
[2024-01-27] MEDS: metroNIDAZOLE 500 MG Tablet PO ×2 (05:39→13:39)
[2024-01-27 06:21] LABS: Bedside Glucose 135 mg/dL (74-106)
[2024-01-27] MEDS: Budesonide Respules 0.5 MG/2 ML AMPUL.NEB. INHALATION (06:44)
[2024-01-27 06:45] VITALS: PULSE 66; RESP 20; O2SAT 94
[2024-01-27] MEDS: Albuterol 2.5 MG/3 ML VIAL.NEB. INHALATION ×2 (06:45→13:28)
--- NOTE | 2024-01-27 07:10 | PCM.PN.SRG ---
Subjective Subjective Patient seen and examined during AM rounds. She is found resting in bed. She denies any abdominal pain but states that her buttocks wound is still sore. Objective Data Objective Data Vital Signs: Vital Signs Temp Pulse Resp BP Pulse Ox O2 Del Method O2 Flow Rate 97.9 F 66 20 H 104/54 L 94 Nasal Cannula 2 01/27/24 04:10 01/27/24 06:45 01/27/24 06:45 01/27/24 04:10 01/27/24 06:45 01/27/24 06:45 01/27/24 06:45 Oxygen Flow Rate (L/min) 2 Oxygen Delivery Method Nasal Cannula Weight: 182 lb 12.211 oz Body Mass Index (BMI) 35.6 Intake & Output: Intake and Output for Last 24 Hours 01/25/24 01/26/24 01/27/24 23:59 23:59 23:59 Intake Total 200 / 350 450 / 550 200 / 200 Output Total 520 / 770 1530 / 1910 570 / 570 Balance -320 / -420 -1080 / -1360 -370 / -370 Lab / Micro Data 01/26/24 07:07 01/26/24 07:07 Labs: Laboratory Results - last 24 hr 01/26/24 07:07: WBC 8.1, RBC 3.37 L, Hgb 9.7 L, Hct 30.3 L, MCV 89.9, MCH 28.8, MCHC 32.0, RDW Std Deviation 47.7 H, RDW Coeff of Yasir 14.4, Plt Count 305, MPV 10.0, Immature Gran % (Auto) 0.500, Neut % (Auto) 71.2 H, Lymph % (Auto) 15.7 L, [place] % (Auto) 8.8, Eos % (Auto) 3.4, Baso % (Auto) 0.4, Absolute Neuts (auto) 5.7, Absolute Lymphs (auto) 1.26, Nucleated RBC % 0, Sodium 134 L, Potassium 4.1, Chloride 102, Carbon Dioxide 26.0, Anion Gap 6, BUN 20 H, Creatinine 1.07 H, Estim Creat Clear Calc 35.35, Est GFR (MDRD) Af Amer 62, Est GFR (MDRD) Non-Af 52 L, BUN/Creatinine Ratio 18.7, Glucose 169 H, Calcium 8.7 01/26/24 11:29: POC Glucose 171 H 01/26/24 16:32: POC Glucose 138 H 01/26/24 22:21: POC Glucose 150 H 01/27/24 05:38: POC Glucose 135 H Physical Exam Const no apparent distress Constitutional Narrative: Oriented to person GI GI Narrative: Mildly distended, soft, right upper quadrant cholecystostomy tube drain is functioning well draining clear green bile. There is no kinking to the patient's tubing Assessment & Plan Assessment/Plan (1) Cholecystitis: PLAN: Patient postprocedure day 2 from cholecystostomy tube exchange. She is doing well clinically with no significant right upper quadrant discomfort. Once again, tube appears to be functioning well and there is no kinking at the drain dressing. Based on the stability we will defer to medicine as to when patient is clinically appropriate for discharge back to her nursing facility. At this time recommend continued drainage for another 3 to 4 weeks with outpatient follow-up. At that time we can reassess whether patient is appropriate for a through?tube cholangiogram, however, I have been careful to caution the family destination therapy for Mrs. Amos given her severely debilitated state.
[2024-01-27 08:34] VITALS: BP 130/68; PULSE 58; RESP 20; TEMP 36.2; O2SAT 100
[2024-01-27] MEDS: Ciprofloxacin 500 MG Tablet PO (09:32)
[2024-01-27] MEDS: Menthol/Lanolin/Calamine/Znox 113 GM Tube 1 APPLIC TOPICAL (09:32)
[2024-01-27] MEDS: Potassium Chloride Oral Tablet 20 MEQ PO (09:32)
[2024-01-27] MEDS: Carvedilol 3.125 MG TABLET PO (09:33)
[2024-01-27] MEDS: Pantoprazole Sodium 40 MG Tablet PO (09:33)
[2024-01-27] MEDS: Furosemide 40 MG Tablet PO (09:33)
[2024-01-27] MEDS: Ascorbic Acid 500 MG Tablet 1000 MG PO (09:33)
[2024-01-27] MEDS: Lisinopril 10 MG Tablet PO (09:33)
[2024-01-27] MEDS: Heparin Injection (Vial) 5,000 UNIT/ML VIAL 5000 UNIT SC (09:33)
[2024-01-27 10:50] VITALS: BP 141/60; PULSE 65; RESP 20; TEMP 36.2; O2SAT 98
[2024-01-27] MEDS: oxyCODONE 5 MG Tablet PO (11:02)
[2024-01-27 11:26] LABS: Bedside Glucose 229 mg/dL (74-106)
--- NOTE | 2024-01-27 11:29 | TREXTCAR_ITS ---
Diet Diet Order/Speech Therapy: 01/25/24 13:04 Diet: Full Liquid Is pt able to select menu?: No Routine Orders/Code Status Suppository Type: Dulcolax 10mg Suppository Frequency: Daily PRN Code Status: DNRCC-A Wound(s) Coccyx: Wound Type: Pressure Injury Dressing Change: applied foam dressing Therapies Weight Bearing: Weight bearing as tolerated Extremity Affected:: Bilateral Lower Physical Therapy: Eval and Treat Occupational Therapy: Eval and Treat Problem/Diagnosis (1) Cholecystitis: Status: Acute Code(s): K81.9 - Cholecystitis, unspecified Comment: Patient's status post cholecystostomy tube placement December 28, 2023. Overall she is doing well and symptomatically resolved. The tube appears appropriate on exam. Patient is not a surgical candidate based on her significant frailty and other comorbidities. Thus, I have discussed with her planning for a through?tube cholangiogram to see if her cystic duct is open and the possibility of removing her cholecystostomy tube only under those circumstances. Otherwise this represents destination therapy for Mrs. Amos. Plan 84-year-old female came to ED with abdominal pain for last couple days with recent cholecystostomy tube placed by Dr. Delaney about a month ago. Patient stated that her tube might have been kinked. No fever or chills. 1. Cholecystitis secondary to cholecystostomy tube kink/obstruction: Patient is being admitted versus floor. General surgery was consulted and tube was straightened. In the morning, patient had change in the cholecystostomy tube. It was done under local anesthesia lidocaine and patient also had morphine yesterday in ED. Patient currently very sleepy and lethargic. States he does not have abdominal pain. Patient had leukocytosis mild 11.5 thousand with neutrophils 76%. Repeat CBC normal. Lactic acid elevated but patient does not seem sepsis. Sepsis ruled out. Continue IV Cipro and Flagyl. Continue liquid diet when patient is awake 2. Severe constipation/rectal impaction: CT abdomen shows large amount of stool in rectum compatible with fecal impaction. Patient had 2 doses of Fleet enema. 3. CAD: Patient on carvedilol, lisinopril, atorvastatin and furosemide 40 mg daily and potassium supplement. Continued. No acute chest pain or shortness of breath. 4. Essential HTN: Blood pressure in normal range 5. Dyslipidemia: As mentioned above 6. 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 BUNs/creatinine normal range. Estimated GFR 6080 mill per hour. Glucose about 150s. 7 GERD: Continue with PPI 8. Acute encephalopathy most likely due to opioid pain medication and lidocaine: Monitor. Avoid any sedative. DVT: Heparin 5000 unit every 12 hourly. Please change orders in the status to inpatient. Patient is lethargic while sleepy related to pain medication and lidocaine. Allergies/Procedures Done in Hospital Allergies acetaminophen [From Tylenol] Allergy (Verified 01/24/24 14:40) Rash amphetamine Allergy (Verified 01/24/24 14:40) PT UNSURE OF REACTION aztreonam Allergy (Verified 01/24/24 14:40) PT UNSURE OF REACTION carbamazepine Allergy (Verified 01/24/24 14:40) PT UNSURE OF REACTION Carbapenems Allergy (Verified 01/24/24 14:40) PT UNSURE OF REACTION celecoxib Allergy (Verified 01/24/24 14:40) PT UNSURE OF REACTION codeine Allergy (Verified 01/24/24 14:40) PT UNSURE OF REACTION doxycycline Allergy (Verified 01/24/24 14:40) PT UNSURE OF REACTION epinephrine Allergy (Verified 01/24/24 14:40) PT UNSURE OF REACTION latex Allergy (Verified 01/24/24 14:40) PT UNSURE OF REACTION nickel Allergy (Verified 01/24/24 14:40) PT UNSURE OF REACTION Penicillins Allergy (Verified 01/24/24 14:40) Other puffs me up pseudoephedrine Allergy (Verified 01/24/24 14:40) PT UNSURE OF REACTION saccharin Allergy (Verified 01/24/24 14:40) PT UNSURE OF REACTION Sulfa (Sulfonamide Antibiotics) Allergy (Verified 01/24/24 14:40) PT UNSURE OF REACTION sulfamethoxazole [From Sulfamethoxazole-Trimethoprim] Allergy (Verified 01/24/24 14:40) PT UNSURE OF REACTION trimethoprim [From Sulfamethoxazole-Trimethoprim] Allergy (Verified 01/24/24 14:40) PT UNSURE OF REACTION Type of Care/Length of Stay Estimated LOS: Convalescent Care Less Than 30 days Type of Care Needed: Skilled Rehab Potential: Good Prognosis: Good Additional Orders/Day of Discharge Day of Discharge: 01/27/24 Discharge Plan Admission Admit Date/Time: 01/25/24 13:16 Primary Reason for Your Visit: Acute cholecystitis Attending Provider: Justin Watters Primary Care Provider: Kirby Dukes Consulting Providers: Axel Ji Discharge Orders/Prescriptions Prescriptions: New sennosides-docusate sodium [Stool Softener-Stimulant Laxat] 8.6-50 mg Tablet 2 tab PO BID Qty: 0 0RF metronidazole 500 mg Tablet 500 mg PO TID 3 Days Qty: 9 0RF ciprofloxacin HCl 500 mg Tablet 500 mg PO BID 4 Days Qty: 0 0RF Continued carvedilol 3.125 mg tablet 3.125 mg PO Q12H fluticasone propion-salmeterol 500-50 mcg/dose blister with device 1 inh INHALATION Q12H furosemide 40 mg tablet 40 mg PO DAILY nystatin 100,000 unit/gram cream 1 applic TOPICAL DAILY omeprazole 40 mg capsule,delayed release(DR/EC) 40 mg PO DAILY multivitamin [Daily Multi-Vitamin] Tablet 1 tab PO DAILY albuterol sulfate 90 mcg/actuation HFA aerosol inhaler 2 puff INHALATION Q6H PRN (Reason: shortness of breath or wheezing) Patient Comments: inhale 2 puffs by mouth and INTO THE LUNGS every 6 hours if needed heparin (porcine) 5,000 unit/mL Solution 5,000 unit subcut Q12 Qty: 1 0RF ondansetron HCl 8 mg tablet 8 mg PO Q6H PRN PRN (Reason: nausea and vomiting) Qty: 1 0RF atorvastatin 20 mg tablet 20 mg PO QHS bisacodyl 10 mg suppository 10 mg MN DAILY PRN (Reason: constipation) insulin lispro [Humalog KwikPen Insulin] 100 unit/mL Insulin Pen See Protocol subcut ACHS Qty: 1 0RF Protocol: 3. Sliding Scale Insulin Med Dosing Condition: 150-189 mg/dl = 1 unit Condition: 190-229 mg/dl = 2 units Condition: 230-269 mg/dl = 3 units Condition: 270-309 mg/dl = 4 units Condition: 310-349 mg/dl = 5 units Condition: 350-399 mg/dl = 6 units Condition: 400-449 mg/dl = 7 units Condition: Greater than 449 call physician Protocol Text: - Use for Total Daily Dose of Insulin 37-55 units - Obsese, infected, or steroid patients MEDIUM DOSING ALGORITHIM menthol-zinc oxide [Calmoseptine] 0.44-20.6 % Ointment 1 applic topical BID Qty: 0 0RF Protocol: *Topical Application Instructions APPLICATION INSTRUCTIONS: buttocks lisinopril 10 mg tablet 10 mg PO DAILY Qty: 1 0RF metformin 500 mg tablet 500 mg PO BID Qty: 1 0RF ascorbic acid (vitamin C) [Vitamin C] 1,000 mg tablet 1,000 mg PO DAILY potassium chloride 20 mEq Tablet,Er Particles/Crystals 20 meq PO DAILY Referrals / Follow Up: Kirby Dukes DO [Primary Care Provider] - Abram Elmore MD [Med Staff - Active Staff] - Within 2 Weeks Disposition Disposition (needs filled in before D/C Order can be placed): [facility]
--- NOTE | 2024-01-27 12:13 | DS.PCM_ITS ---
Providers Date of Admission: 01/25/24 Date of Discharge: 01/27/24 Primary Care Physician: Dr. Kirby Dukes, DO Consultations 01/25/24 06:19 Consult: Onc/Wound/surveyor helper Routine Comment: Comments:: on coccyx Reason For Visit: CHOLECYSTOSTOMY TUBE COMPLICATION Diagnosis Discharge Diagnosis (1) Cholecystitis: Status: Acute Code(s): K81.9 - Cholecystitis, unspecified Plan 84-year-old female came to ED with abdominal pain for last couple days with recent cholecystostomy tube placed by Dr. Delaney about a month ago. Patient stated that her tube might have been kinked. No fever or chills. 1. Cholecystitis secondary to cholecystostomy tube kink/obstruction: Patient is being admitted versus floor. General surgery was consulted and tube was straig htened. In the morning, patient had change in the cholecystostomy tube. It was done under local anesthesia lidocaine and patient also had morphine yesterday in ED. Patient currently very sleepy and lethargic. States he does not have abdominal pain. Patient had leukocytosis mild 11.5 thousand with neutrophils 76%. Repeat CBC normal. Lactic acid elevated but patient does not seem sepsis. Sepsis ruled out. Continue IV Cipro and Flagyl. Continue liquid diet when patient is awake 4/12: Leukocytosis has resolved. Patient abdominal pain has also resolved. No RUQ tenderness. Patient discharged on Cipro and Flagyl to complete a total of 8 days of antibiotics. 2. Severe constipation/rectal impaction: CT abdomen shows large amount of stool in rectum compatible with fecal impaction. Patient had 2 doses of Fleet enema. 412: Continue on senna S and Dulcolax suppository. If needed, can add MiraLAX in shelter. 3. CAD: Patient on carvedilol, lisinopril, atorvastatin and furosemide 40 mg daily and potassium supplement. Continued. No acute chest pain or shortness of breath. 412: Continue home medications, discharge meds reconciliation done 4. Essential HTN: Blood pressure in normal range 5. Dyslipidemia: As mentioned above 6. 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 BUNs/creatinine normal range. Estimated GFR 6080 mill per hour. Glucose about 150s. 7 GERD: Continue with PPI 8. Acute encephalopathy most likely due to opioid pain medication and lidocaine: Monitor. Avoid any sedative. DVT: Heparin 5000 unit every 12 hourly. Discharge medication reconciliation done. Discharge follow-up instructions completed. Discharge process discussed with the patient and all questions were answered to patient's satisfaction. Follow with PCP in 1 to 2 weeks Total time spent, exact 35 minutes on discharge meds reconciliation, examination, coordination of care with nurses and ancillary staff, review of imaging and blood test and discussion with the patient on follow-up in structions. Medications at Discharge Home Medications albuterol sulfate 90 mcg/actuation aerosol inhaler 2 puff inhalation Q6H PRN shortness of breath or wheezing 11/25/23 carvedilol 3.125 mg tablet 3.125 mg PO Q12H 11/25/23 fluticasone 500 mcg-salmeterol 50 mcg/dose blistr powdr for inhalation 1 inh inhalation Q12H 11/25/23 furosemide 40 mg tablet 40 mg PO DAILY 11/25/23 multivitamin (Daily Multi-Vitamin tablet) 1 tab PO DAILY 11/25/23 nystatin 100,000 unit/gram topical cream 1 applic topical DAILY 11/25/23 omeprazole 40 mg capsule,delayed release 40 mg PO DAILY 11/25/23 heparin (porcine) 5,000 unit/mL injection solution 5,000 unit subcut Q12 #1 mL 11/29/23 ondansetron HCl 8 mg tablet 8 mg PO Q6H PRN PRN nausea and vomiting #1 TAB 11/29/23 atorvastatin 20 mg tablet 20 mg PO QHS 12/27/23 bisacodyl 10 mg rectal suppository 10 mg IN DAILY PRN constipation 12/27/23 insulin lispro 100 unit/mL subcutaneous pen (Humalog KwikPen (U-100) Insulin) See Protocol subcut ACHS #1 mL 01/02/24 lisinopril 10 mg tablet 10 mg PO DAILY #1 TAB 01/02/24 menthol 0.44 %-zinc oxide 20.6 % topical ointment (Calmoseptine) 1 applic t opical BID #0 grams 01/02/24 metformin 500 mg tablet 500 mg PO BID #1 TAB 01/02/24 ascorbic acid (vitamin C) 1,000 mg tablet (Vitamin C) 1,000 mg PO DAILY 01/24/24 potassium chloride 20 mEq tablet,extended release(part/cryst) 20 meq PO DAILY 01/24/24 ciprofloxacin HCl 500 mg tablet 500 mg PO BID 4 days #0 tabs 01/27/24 metronidazole 500 mg tablet 500 mg PO TID 3 days #9 tabs 01/27/24 sennosides 8.6 mg-docusate sodium 50 mg tablet (Stool Softener-Stimulant Laxative) 2 tab PO BID #0 tabs 01/27/24 Physical Exam Narrative Seen and examined. Patient had cholecystostomy tube exchanged over the guidewire by IR. Abdominal pain has resolved. Patient moved her bowels. Physical exam General: Alert, Oriented x3, Cooperative HEENT: Atraumatic, PERRLA, EOMI, Normocephalic Oral: Oral mucosa moist. No Gingival or Mucosal Lesions/ Ulcerations Neck: Supple, No JVD, Negative Carotid Bruits Chest wall/Lungs: Air entry diminished in bilateral lung bases. No crepitation/rhonchi Cardiovascular: Regular rate, Regular Rhythm, Normal S1, Normal S2, No M/G/R Abdomen: Bowel Sounds Present, Soft, tenderness has resolved. New cholec ystostomy tube draining bile. Non-Distended : No dysuria. No renal angle tenderness. No suprapubic tenderness. Extremities: No edema, Capillary Refill Less than 3 Seconds Skin: No rashes, No breakdown Musculoskeletal: No Tenderness to Palpation of Joints or Extremities Neurological: Cranial nerves II-XII grossly intact, DTR 2+/4. No acute focal neurological deficit. Psych/Mental Status: Flat affect. In pain Weight / BMI Weight Weight: 182 lb 12.211 oz Body Mass Index (BMI) 35.6 ABG / Lab / Microbiology Data 01/26/24 07:07 01/26/24 07:07 Laboratory: Laboratory Results - last 24 hr 01/26/24 16:32: POC Glucose 138 H 01/26/24 22:21: POC Glucose 150 H 01/27/24 05:38: POC Glucose 135 H 01/27/24 10:57: POC Glucose 229 H Meaningful Use Info Meaningful Use Diagnoses (Choose all that apply): None applicable Discharge Plan Admission Admit Date/Time: 01/25/24 13:16 Primary Reason for Your Visit: Acute cholecystitis Attending Provider: Justin Watters Primary Care Provider: Kirby Dukes Consulting Providers: Axel Ji Discharge Orders/Prescriptions Prescriptions: New sennosides-docusate sodium [Stool Softener-Stimulant Laxat] 8.6-50 mg Tablet 2 tab PO BID Qty: 0 0RF metronidazole 500 mg Tablet 500 mg PO TID 3 Days Qty: 9 0RF ciprofloxacin HCl 500 mg Tablet 500 mg PO BID 4 Days Qty: 0 0RF Continued carvedilol 3.125 mg tablet 3.125 mg PO Q12H fluticasone propion-salmeterol 500-50 mcg/dose blister with device 1 inh INHALATION Q12H furosemide 40 mg tablet 40 mg PO DAILY nystatin 100,000 unit/gram cream 1 applic TOPICAL DAILY omeprazole 40 mg capsule,delayed release(DR/EC) 40 mg PO DAILY multivitamin [Daily Multi-Vitamin] Tablet 1 tab PO DAILY albuterol sulfate 90 mcg/actuation HFA aerosol inhaler 2 puff INHALATION Q6H PRN (Reason: shortness of breath or wheezing) Patient Comments: inhale 2 puffs by mouth and INTO THE LUNGS every 6 hours if needed heparin (porcine) 5,000 unit/mL Solution 5,000 unit subcut Q12 Qty: 1 0RF ondansetron HCl 8 mg tablet 8 mg PO Q6H PRN PRN (Reason: nausea and vomiting) Qty: 1 0RF atorvastatin 20 mg tablet 20 mg PO QHS bisacodyl 10 mg suppository 10 mg IN DAILY PRN (Reason: constipation) insulin lispro [Humalog KwikPen Insulin] 100 unit/mL Insulin Pen See Protocol subcut ACHS Qty: 1 0RF Protocol: 3. Sliding Scale Insulin Med Dosing Condition: 150-189 mg/dl = 1 unit Condition: 190-229 mg/dl = 2 units Condition: 230-269 mg/dl = 3 units Condition: 270-309 mg/dl = 4 units Condition: 310-349 mg/dl = 5 units Condition: 350-399 mg/dl = 6 units Condition: 400-449 mg/dl = 7 units Condition: Greater than 449 call physician Protocol Text: - Use for Total Daily Dose of Insulin 37-55 units - Obsese, infected, or steroid patients MEDIUM DOSING ALGORITHIM menthol-zinc oxide [Calmoseptine] 0.44-20.6 % Ointment 1 applic topical BID Qty: 0 0RF Protocol: *Topical Application Instructions APPLICATION INSTRUCTIONS: buttocks lisinopril 10 mg tablet 10 mg PO DAILY Qty: 1 0RF metformin 500 mg tablet 500 mg PO BID Qty: 1 0RF ascorbic acid (vitamin C) [Vitamin C] 1,000 mg tablet 1,000 mg PO DAILY potassium chloride 20 mEq Tablet,Er Particles/Crystals 20 meq PO DAILY Referrals / Follow Up: Abram Elmore MD [Med Staff - Active Staff] - Within 2 Weeks Kirby Dukes DO [Primary Care Provider] - Disposition Disposition (needs filled in before D/C Order can be placed): [facility] Charges/Coding Visit Charges Inpatient E&M: 94033 Disch Hosp >30min
[2024-01-27] MEDS: Insulin Lispro 100 UNIT/ML INSULN.PEN SC (12:24)
[2024-01-27 13:28] VITALS: PULSE 70; RESP 20
--- NOTE | 2024-01-27 13:33 | CASEMGMT ---
Addendum entered by Shila Goodrich 01/27/24 15:59: Social Work [facility] is able to accept pt today. Phone call to [facility] and updated Kkii that pt's family does not want pt to return and that pt is going to [facility]. SW requested PASRR be faxed to hospital to provide to [facility]. Phone call to Brooke Mendez and updated that pt has been accepted to [facility] and will dc today at 4:30. Nursing updated. [facility], skilled level of care LIONEL Galvan Original Note: Social Work Per physician, pt is ready for discharge today. Pt scheduled to return to [facility]. Transportation arranged with [facility] for 4:30 seed cone picker. Discharge orders sent to [facility] via [facility]. Pt and bedside nurse notified of dc time. VM left with pt spouse updating on time of discharge. After VM left with spouse, SW recieved call from Brooke Mendez who was with pt spouse. Brooke reports she would like a referral to [facility] and does not want pt to return to [facility]. MARGO explained that pt has been discharged and transportation back to [facility] set for 4:30 also that pt's spouse confirmed return to [facility] on 01/24. Brooke and pt spouse both now requesting move to [facility]. MARGO will send a referral and [facility] (as pt is medically ready for dc) then we can accomodate. If [facility] cannot take today, pt will return to [facility] and they can assist family in transferring facilities. Referral made to [facility]. LIONEL Galvan
[2024-01-27 14:32] VITALS: BP 111/74; PULSE 66; RESP 18; TEMP 36.3; O2SAT 97
--- NOTE | 2024-01-27 16:26 | CASEMGMT ---
Social Work PAS/RR w/results faxed from [facility] and sent to [facility] JUNI Obrien
== END 2024-01-27 16:47 | disposition skilled nursing facility (03) | DRG 444 ==
LOC: ED 15:09 → MS3 17:04
PROVIDERS: Admitting Provider Family Medicine; Emergency Provider Student in an Organized Health Care Education/Training Program; PCP Family Medicine; Visit Provider Internal Medicine
DX: K81.9 Cholecystitis, unspecified (principal); G92.8 Other toxic encephalopathy; I13.0 Hypertensive heart and chronic kidney disease with heart failure and stage 1 through stage 4 chronic kidney disease, or unspecified chronic kidney disease; T85.698A Other mechanical complication of other specified internal prosthetic devices, implants and grafts, initial encounter; E11.21 Type 2 diabetes mellitus with diabetic nephropathy; I50.9 Heart failure, unspecified; J44.9 Chronic obstructive pulmonary disease, unspecified; N18.31 Chronic kidney disease, stage 3a; Z79.4 Long term (current) use of insulin; E11.22 Type 2 diabetes mellitus with diabetic chronic kidney disease; I25.10 Atherosclerotic heart disease of native coronary artery without angina pectoris; E78.5 Hyperlipidemia, unspecified; K21.9 Gastro-esophageal reflux disease without esophagitis; K59.00 Constipation, unspecified; Z79.01 Long term (current) use of anticoagulants; Z87.891 Personal history of nicotine dependence; Z86.73 Personal history of transient ischemic attack (TIA), and cerebral infarction without residual deficits; T40.2X5A Adverse effect of other opioids, initial encounter
CPT/HCPCS: 36415; 51702; 74177; 77002; 80048; 80076; 82962; 83605; 83690; 85025; 94640; 97166; 99285; J7030; J7040; Q9967; A4216; J0744; J2405

== ENCOUNTER 2024-02-01 13:02 | Inpatient (IN) | payer MEDICARE, MEDICAID, SELFPAY ==
[2024-02-01] VITALS (26 sets, daily range): BP systolic 47–181; BP diastolic 17–138; PULSE 58–92; RESP 17–32; TEMP 35.9–37.7; O2SAT 74–100; BMI 35.6
--- NOTE | 2024-02-01 13:21 | CT_ITS ---
STUDY: CT ABDOMEN AND PELVIS WITHOUT CONTRAST REASON FOR EXAM: Female, 88 years old. abd pain RADIATION DOSAGE (If Supplied By Facility): CTDIvol = ( 21.01 ) mGy, DLP = ( 1050.02 ) mGycm TECHNIQUE: Transaxial images were obtained from the dome of the diaphragm to the symphysis pubis without oral contrast, and without intravenous contrast. Sagittal and coronal images were reconstructed. Individualized dose optimization techniques were used for this CT. COMPARISON: CT abdomen and pelvis January 24, 2024. FINDINGS: The visualized lung bases are unremarkable. Calcific coronary artery disease. Normal liver. Large calcified gallstone. Percutaneous cholecystostomy tube unchanged in position. Normal spleen. Normal pancreas. Normal bilateral adrenal glands. Normal right kidney. Normal left kidney. Normal visualized stomach. Normal small intestine. Increased stool and gas in the colon. Desiccated oral contrast noted in the rectosigmoid. Circumferential bowel wall thickening of the rectosigmoid. No pneumatosis.. Appendix not identified. Calcified plaque along the aorta and its branches. Normal inferior vena cava. Prominent stable retroperitoneal lymph nodes measuring 19 mm in diameter. Bladder decompressed with Garcia catheter. 3.5 cm right adnexal soft tissue nodule. Surgical mesh anterior abdominal wall. Diffuse demineralization. CT/Abdomen/Pelvis without Cont IMPRESSION: Cholelithiasis and percutaneous cholecystostomy catheter unchanged. Colonic ileus and increased stool. Possible new stercoral colitis. Stable borderline nonspecific retroperitoneal lymphadenopathy. Electronically Signed: Ludwin Waller MD at 16:52 EDT ,
[2024-02-01] MEDS: Ondansetron 4 MG/2 ML Vial IV (14:38)
[2024-02-01] MEDS: 0.9% Normal Saline (1000mL) 1,000 ML 1000 ML IV (14:38)
[2024-02-01 14:48] LABS: Absolute Lymphocyte Count 1.59 X10^3/uL (0.83-4.51); Absolute Neutrophil Count 48.9 X10^3/uL (2.0-7.7); Basophil# 0.09 X10^3/uL; Basophil% 0.2 % (0-1); Eosinophil# 0.01 X10^3/uL; Hematocrit 41.7 % (37-47); Lymphocyte # 1.59 X10^3/ul (0.83-4.51); Lymphocyte % 2.8 % (19-41); Mean Corp Hgb Conc 31.2 g/dL (32-36); Mean Corpuscular Hgb 28.4 pg (27.0-32.0); Mean Corpuscular Volume 91.2 fL (81-99); Mean Platelet Vol. 10.2 fl (6.2-12.0); Monocyte# 4.93 X10^3/uL; Monocyte% 8.6 % (0-10); NRBC Flagged by Analyzer 0 % (0-5); Neutrophil # 48.93 X10^3/uL (2.7-7.7); Neutrophil % 84.9 % (47-70); POSITIVE COUNT YES; POSITIVE DIFFERENTIAL YES; POSITIVE MORPHOLOGY YES; Platelet Count 651 K/mm3 (150-450); RBC Distribution Width SD 50.4 fl (35.1-43.9); Red Blood Count 4.57 M/mm3 (4.2-5.4); White Blood Count 57.6 K/mm3 (4.4-11.0)
[2024-02-01 14:50] LABS: Differential Indicated SCAN CRITERIA MET
--- NOTE | 2024-02-01 15:11 | EDS_ITS ---
HPI HPI - GI History of Present Illness Chief Complaint: Nausea/Vomiting/Diarrhea Informant: patient and spouse/S.O. Abdominal Pain/Flank Pain Onset: Today and Hours Context: Gradual Onset Timing: Continuous Quality: Cramping Location: Diffuse Current Severity: Mild Maximum Severity: Mild Worsened by: Nothing Relieved by: Nothing Nausea/Vomiting/Emesis GI Symptom: Positive for Nausea and Vomiting Onset: Today and Hours Severity: Moderate Diarrhea/Melena/Hematochezia GI Symptom: Positive for Diarrhea Onset: Today Stool Quality: Positive for Loose Severity: Mild Associated Symptoms Associated Symptoms: Negative for Dysuria, Frequency, Hematuria or Urgency Narrative Narrative: 88-year-old female from extended-care facility with a history of anemia, CHF, COPD, stroke and prior DVT. Had nausea vomiting diarrhea today with diffuse abdominal pain. No fever. No chills. Denies any dysuria. Unknown past abdominal surgical history. Prior similar symptoms: Yes Recent Illness/Hospitalization: No PFSH PFSH Medical History Acute calculous cholecystitis Anemia Anxiety Asthma Bimalleolar fracture of left ankle Chest pain CHF (congestive heart failure) COPD (chronic obstructive pulmonary disease) Coronary artery disease DVT (deep venous thrombosis) Dysphagia Former smoker Fracture of left tibial plafond with involvement of fibula HTN (hypertension) Nausea & vomiting Osteoporosis Stroke/cerebrovascular accident Tibial plateau fracture, left Home Medications albuterol sulfate 90 mcg/actuation aerosol inhaler 2 puff inhalation Q6H PRN shortness of breath or wheezing 11/25/23 [History Last Taken Unknown] carvedilol 3.125 mg tablet 3.125 mg PO Q12H 11/25/23 [History Last Taken 12/27/23] fluticasone 500 mcg-salmeterol 50 mcg/dose blistr powdr for inhalation 1 inh inhalation Q12H 11/25/23 [History Last Taken 11/24/23] furosemide 40 mg tablet 40 mg PO DAILY 11/25/23 [History Last Taken 12/27/23] multivitamin (Daily Multi-Vitamin tablet) 1 tab PO DAILY 11/25/23 [History Last Taken 12/27/23] omeprazole 40 mg capsule,delayed release 40 mg PO DAILY 11/25/23 [History Last Taken 11/24/23] atorvastatin 20 mg tablet 20 mg PO QHS 12/27/23 [History Last Taken 12/26/23] bisacodyl 10 mg rectal suppository 10 mg AK DAILY PRN constipation 12/27/23 [History Last Taken 12/26/23] insulin lispro 100 unit/mL subcutaneous pen (Humalog KwikPen (U-100) Insulin) See Protocol subcut ACHS #1 mL 01/02/24 [Rx Last Taken Unknown] lisinopril 10 mg tablet 10 mg PO DAILY #1 TAB 01/02/24 [Rx Last Taken Unknown] metformin 500 mg tablet 500 mg PO BID #1 TAB 01/02/24 [Rx Last Taken Unknown] ascorbic acid (vitamin C) 1,000 mg tablet (Vitamin C) 1,000 mg PO DAILY 01/24/24 [History Last Taken Unknown] potassium chloride 20 mEq tablet,extended release(part/cryst) 20 meq PO DAILY 01/24/24 [History Last Taken Unknown] metronidazole 500 mg tablet 500 mg PO TID 3 days #9 tabs 01/27/24 [Rx Last Taken Unknown] sennosides 8.6 mg-docusate sodium 50 mg tablet (Stool Softener-Stimulant Laxative) 2 tab PO BID #0 tabs 01/27/24 [Rx Last Taken Unknown] albuterol sulfate 0.63 mg/3 mL solution for nebulization 0.63 mg inhalation Q4H PRN shortness of breath or wheezing 02/01/24 [History Last Taken Unknown] heparin (porcine) 5,000 unit/mL injection solution 5,000 unit subcut Q12H 02/01/24 [History Last Taken Unknown] ipratropium 0.5 mg-albuterol 3 mg (2.5 mg base)/3 mL nebulization soln 3 ml inhalation TID PRN SHORTNESS OF BREATH 02/01/24 [History Last Taken Unknown] ondansetron HCl 8 mg tablet 8 mg PO Q6H PRN nausea and vomiting 02/01/24 [History Last Taken Unknown] Allergy/AdvReac Type Severity Reaction Status Date / Time acetaminophen [From Tylenol] Allergy Rash Verified 02/01/24 13:03 amphetamine Allergy PT UNSURE Verified 02/01/24 13:03 OF REACTION aztreonam Allergy PT UNSURE Verified 02/01/24 13:03 OF REACTION carbamazepine Allergy PT UNSURE Verified 02/01/24 13:03 OF REACTION Carbapenems Allergy PT UNSURE Verified 02/01/24 13:03 OF REACTION celecoxib Allergy PT UNSURE Verified 02/01/24 13:03 OF REACTION codeine Allergy PT UNSURE Verified 02/01/24 13:03 OF REACTION doxycycline Allergy PT UNSURE Verified 02/01/24 13:03 OF REACTION epinephrine Allergy PT UNSURE Verified 02/01/24 13:03 OF REACTION latex Allergy PT UNSURE Verified 02/01/24 13:03 OF REACTION nickel Allergy PT UNSURE Verified 02/01/24 13:03 OF REACTION Penicillins Allergy Other Verified 02/01/24 13:03 pseudoephedrine Allergy PT UNSURE Verified 02/01/24 13:03 OF REACTION saccharin Allergy PT UNSURE Verified 02/01/24 13:03 OF REACTION Sulfa (Sulfonamide Allergy PT UNSURE Verified 02/01/24 13:03 Antibiotics) OF REACTION sulfamethoxazole Allergy PT UNSURE Verified 02/01/24 13:03 [From OF REACTION Sulfamethoxazole-Trimethoprim] trimethoprim Allergy PT UNSURE Verified 02/01/24 13:03 [From OF REACTION Sulfamethoxazole-Trimethoprim] Surgical History History of appendectomy Social History household members: spouse housing: detention Smoking Status: Former smoker ROS ROS ED ROS Narrative Nausea, vomiting diarrhea. Abdominal pain. Denies fever. Denies dysuria. Review of Systems ROS Unobtainable: Denies due to encephalopathy Constitutional Constitutional ED: Denies chills or fever(s) ENT ENT ED: Denies ear pain Cardiovascular Cardiovascular: Denies chest pain Respiratory/Chest Respiratory/Chest: Denies cough or dyspnea Gastrointestinal Gastrointestinal: Reports abdominal pain, diarrhea, nausea and vomiting Genitourinary Genitourinary ED: Denies dysuria or hematuria Musculoskeletal Musculoskeletal: Denies arthralgias Integumentary Denies abscess Neurologic Neurologic: Denies headache(s) Psychiatric Psychiatric: Denies anxiety or depression Endocrine Endocrinology: Denies polydipsia Hematologic/Lymphatic Hematologic/Lymphatic: Denies easy bleeding, easy bruising or lymphadenopathy Allergic/Immunologic Allergic/Immunologic ED: Denies mouth swelling, tongue swelling or urticaria EXAM Physical Exam Narrative Exam Narrative: 88-year-old female vital signs stable afebrile initial blood pressure was elevated rechecked is 100/78. H EENT exam pupils are reactive light. Dry mucous membranes. Neck nontender. Lungs clear to auscultation bilaterally. Heart regular rhythm rate about 60 no murmur. Abdomen soft diffusely tender. Completely bleeding no peritoneal signs. She has a drain in her right upper quadrant to her gallbladder. Reportedly they could not do surgery due to her overall medical condition. There is no hernia or mass. Moving all 4 extremities. Neurologically she is awake alert. Answering questions following commands. Const Vital Signs: 02/01/24 13:03 02/01/24 13:07 02/01/24 14:07 Temperature 96.7 F L 96.7 F L 99.9 F H Temperature Source Temporal Temporal Axillary Pulse Rate 92 92 58 L Respiratory Rate 18 18 20 H Respiratory Pattern Blood Pressure 181/138 H 181/138 H 100/78 Blood Pressure Mean 152 152 85 Pulse Ox 99 99 95 Oxygen Delivery Method Nasal Cannula Room Air Nasal Cannula Oxygen Flow Rate (L/min) 2 2 02/01/24 15:00 02/01/24 16:23 02/01/24 17:00 Temperature 99.9 F H 98.8 F Temperature Source Axillary Axillary Pulse Rate 82 88 83 Respiratory Rate 29 H 17 31 H Respiratory Pattern Normal Blood Pressure 80/64 L 71/47 L Blood Pressure Mean 69 55 Pulse Ox 95 100 Oxygen Delivery Method Nasal Cannula Nasal Cannula Oxygen Flow Rate (L/min) 2 2 02/01/24 15:45 Temperature 98.8 F Temperature Source Pulse Rate 83 Respiratory Rate 22 H Respiratory Pattern Blood Pressure 71/47 L Blood Pressure Mean 55 Pulse Ox 100 Oxygen Delivery Method Oxygen Flow Rate (L/min) Positive well nourished and well developed; Negative for cachectic, contractures or unkempt General Appearance ED: well developed and NAD; Negative for unkempt, cachectic, contractures or pallor Nutritional Appearance: Negative for cachectic HEENT Reports dry mucous membranes; Denies moist mucous membranes normocephalic and atraumatic; Negative for trauma or tenderness Mouth ED: Yes dry mucous membranes Mouth: dry mucous membranes Eyes PERRL and EOMs intact bilaterally General Eye ED: Negative for pale conjunctiva or scleral icterus Neck no lymphadenopathy, supple and no JVD General: Negative for tenderness Carotids: Negative for other Lymph Lymphatic: Negative for other Resp normal respiratory effort and clear to auscultation bilaterally Effort and Inspection: Negative for respiratory distress Auscultation: Negative for rales, rhonchi or wheezes Cardio regular rate, regular rhythm, S1 normal heart sound, S2 normal heart sound and no murmurs Rate: Negative for bradycardia or tachycardic Rhythm: Negative for abnormal rhythm GI non-tender, non-distended and no masses GI Narrative: Tenderness. Localizing. Inspection: Negative for abdominal distention Auscultation: normoactive bowel sounds Palpation: soft and tender; Negative for guarding or rebound tenderness present Back/Spine no CVA tenderness General Back: Negative for CVA tenderness Cervical Spine: Negative for cervical spine tenderness Thoracic Spine / Upper Back: Negative for thoracic spinal tenderness Lumbar Spine / Lower Back: Negative for lumbar spinal tenderness Coccyx: Negative for other Extremity full ROM General Extremety ED: Negative for edema or tenderness General Extremity: Negative for edema Neuro CN's II-XII intact bilaterally and moves all extremities Sensorium / Orientation: alert, oriented to person, oriented to place and oriented to time Motor Exam: general weakness Psych mental status grossly normal and thought process normal Appearance: Negative for unkempt Attitude: No agitated Mood & Affect: Negative for depressed, anxious or tearful Skin no wounds General Skin Exam: Negative for jaundice or pallor Lesions: no lesions Rashes: no rashes MDM MDM MDM Narrative Medical decision making narrative: 88-year-old female with nausea vomiting and diarrhea. Suspect viral syndrome. However she does have diffuse abdominal tenderness. And a CAT scan to be obtained. She will be treated with IV fluids and Zofran for dehydration and nausea. Repeat exam at 3:38 PM unchanged. Patient be started on hyperkalemia protocol due to her potassium of 7.4 and acute kidney failure. CAT scan will be done also the abdomen which was ordered and will be done without any IV contrast. Patient will need to be admitted for acute kidney failure, hyperkalemia. And awaiting the CAT scan results. I have already spoken to the patient and family of her results are really having. She will be admitted. And we are hoping for additional information with the CAT scan. Lengthy discussion with the patient's family. Her is at bedside. Her daughters are now at bedside. Patient is DNR. They do not want intubation. They did not want CPR. They do not want a central line. We also El a DNR order from prior visits. They realize how critically ill she is. The hospitalist is also in the room speaking with him. She has received IV fluids. She will also receive IV vancomycin on top of the IV Zosyn she is already getting. History & Record Review Discussion w/independent historian: Patient Additional record(s) reviewed:: Prior inpatient record, Prior outpatient record, Prior ED visit and Prior labs Lab Data Attestation: I reviewed the patient's lab results. Lab results narrative: CBC shows elevated white count of 57,000. H&H 13 and 41. Platelets 651. Chemistry shows sodium 126. Potassium 7.4. Patient will be started on hyperkalemia protocol. Anion gap of 22. BUN and creatinine of 57 and 4.15. Glucose 203. Liver enzymes was unremarkable. Lipase normal at 11. Labs are consistent with acute kidney failure with severe hyperkalemia which will be addressed. Labs: Laboratory Results - last 24 hr 02/01/24 02/01/24 14:23 16:30 WBC 57.6 H* RBC 4.57 Hgb 13.0 Hct 41.7 MCV 91.2 MCH 28.4 MCHC 31.2 L RDW Std Deviation 50.4 H RDW Coeff of Yasir 15.0 H Plt Count 651 H MPV 10.2 Immature Gran % (Auto) 3.500 H Neut % (Auto) 84.9 H Lymph % (Auto) 2.8 L [place] % (Auto) 8.6 Eos % (Auto) 0.0 Baso % (Auto) 0.2 Absolute Neuts (auto) 48.9 H Absolute Lymphs (auto) 1.59 Nucleated RBC % 0 Diff Path Review May foll Hypersegmented Neuts 1+ H Platelet Estimate MOD INC Sodium 126 L Potassium 7.4 H* Chloride 93 L Carbon Dioxide 11.0 L Anion Gap 22 H BUN 57 H Creatinine 4.15 H Estim Creat Clear Calc 9.10 Est GFR (MDRD) Af Amer 13 L Est GFR (MDRD) Non-Af 11 L BUN/Creatinine Ratio 13.7 Glucose 283 H Lactic Acid Cancelled Calcium 9.1 Total Bilirubin 0.60 AST 16 ALT 17 Alkaline Phosphatase 126 H Total Protein 6.5 Albumin 2.6 L Globulin 3.9 Albumin/Globulin Ratio 0.7 L Lipase 11 L Radiography Diagnostic Testing: Clinical Impression(s) from Imaging Studies Abdomen/Pelvis CT 02/01/24 13:21 IMPRESSION: Cholelithiasis and percutaneous cholecystostomy catheter unchanged. Colonic ileus and increased stool. Possible new stercoral colitis. Stable borderline nonspecific retroperitoneal lymphadenopathy. Electronically Signed: Ludwin Waller MD at 16:52 EDT , Rhythm Strip Rhythm Strip: Sinus Rhythm Rate: 77 Ectopy: None EKG Initial EKG: Attestation: I personally reviewed and interpreted this EKG as follows: Interpretation: Sinus Rhythm and No Acute Injury Pattern Comments: Normal sinus rhythm rate of 77. Left bundle branch block. No signs of NE, ischemia or dysrhythmia. Critical Care Time Critical Care Time: Yes Critical care time (excluding procedures): 30-74 minutes, Including time spent:, Discussing w/Patient &/or Family/Vitreo Retinal Surgeon, Discussing w/Consultants, Arranging Admission or Transfer, Performing Direct Patient Care at Bedside and - (40 min.) Discharge Plan Dx/Rx/DC Orders Clinical Impression: Nausea vomiting and diarrhea, Acute dehydration, Acute kidney failure, Leukocytosis, History of diabetes mellitus, Abdominal pain, Acute hyperkalemia Disposition Disposition: Acute Care [facility]
[2024-02-01 15:21] LABS: Hypersegmented Neutrophils 1+; Platelet Estimate MOD INC (ADEQ)
[2024-02-01 15:30] LABS: ALB/GLOB Ratio 0.7 RATIO (0.9-2.4); AST(SGOT) 16 U/L (15-37); Alanine Aminotransfer ALT/SGPT 17 U/L (13-56); Albumin, Serum 2.6 g/dL (3.2-5.0); Alkaline Phosphatase 126 U/L (45-117); Anion Gap 22 (5-15); BUN 57 mg/dL (7-18); BUN/Creat Ratio 13.7 RATIO (10-20); Calcium,Total 9.1 mg/dL (8.5-10.1); Chloride 93 mmol/L (98-107); Creatinine, Serum 4.15 mg/dL (0.55-1.02); EST Glomerular Filtration Rate 11 mL/min (>60); Est Glom Filt Rate - Afr Amer 13 mL/min (>60); Globulin 3.9 g/dL (2.2-4.2); Glucose 283 mg/dL (74-106); Lipase 11 U/L (13-75); Potassium 7.4 mmol/L (3.5-5.1); Protein, Total 6.5 g/dL (6.4-8.2); Sodium Level 126 mmol/L (136-145)
[2024-02-01] MEDS: Albuterol 2.5 MG/3 ML VIAL.NEB. 10 MG INHALATION (15:53)
[2024-02-01] MEDS: Calcium Gluconate IV 3 GM in Syringe 1 EACH IV (16:26)
[2024-02-01] MEDS: Insulin Lispro 10 UNIT in Syringe 0 ML 6 UNIT IV (16:26)
[2024-02-01] MEDS: Sodium Bicarbonate 150 MEQ in Dextrose 5%-Water (1000mL Bag) 1,000 ML 250 MEQ IV (16:27)
--- NOTE | 2024-02-01 16:30 | PCM.HP.STD ---
HPI - General General Date of Admission: 02/01/24 Date of Service: 02/01/24 Chief Complaint: Abdominal pain, N/V/D HPI Narrative The patient is an 88 y/o F w/ PMHx: CKD stage III unclear subtype, Chronic anemia, Asthma/COPD, HTN, HLD, Former tobacco use, Hx CVA, Hx VTE, CAD, Chronic Cholecystitis with cholecystostomy tube with recent discharge 01/27/24 following tube obstruction with exchange performed as well as treatment for severe constipation/rectal impaction who now re-presents to the [facility] ED on 02/01/24 with onset of nausea, emesis as well as diarrhea with diffuse abdominal discomfort with no reported fevers or chills but recent history prompted concern as well as ongoing, diffuse and cramping in nature, not improving prompting facility to transfer patient to the ED for evaluation. Workup in the ED included T96.7, heart rate 92, BP 181/138, respiratory rate 18, 99% on 2 L nasal cannula with most recent repeat vital signs T99.9, heart rate 82, BP 80/64, respiratory rate 29, 95% on 2 L nasal cannula, CBC with WBC 57.6, hemoglobin 13, platelets 651 with left shift, CMP with sodium 126, potassium 7.4 not noted to be hemolyzed, chloride 93, carbon oxide 11, anion gap 22, BUN/creatinine 57/4.15, glucose 283, hepatic profile not marked appearing, lipase 11, CT abdomen and pelvis with chronic cholelithiasis and percutaneous cholecystostomy catheter unchanged, chronic ileus and increase stool, stable nonspecific retroperitoneal lymphadenopathy, chest x-ray with no acute cardiopulmonary findings. In the ED patient administered sodium bicarb drip, IV Zosyn, insulin 10 unit IV, calcium gluconate 3 g IV, albuterol inhalation x 1, 2 L normal saline as well as Zofran 4 mg IV x 1. [facility] Medical History Acute calculous cholecystitis Anemia Anxiety Asthma Bimalleolar fracture of left ankle Chest pain CHF (congestive heart failure) COPD (chronic obstructive pulmonary disease) Coronary artery disease DVT (deep venous thrombosis) Dysphagia Former smoker Fracture of left tibial plafond with involvement of fibula HTN (hypertension) Nausea & vomiting Osteoporosis Stroke/cerebrovascular accident Tibial plateau fracture, left Home Medications albuterol sulfate 90 mcg/actuation aerosol inhaler 2 puff inhalation Q6H PRN shortness of breath or wheezing 11/25/23 [History Last Taken Unknown] carvedilol 3.125 mg tablet 3.125 mg PO Q12H 11/25/23 [History Last Taken 12/27/23] fluticasone 500 mcg-salmeterol 50 mcg/dose blistr powdr for inhalation 1 inh inhalation Q12H 11/25/23 [History Last Taken 11/24/23] furosemide 40 mg tablet 40 mg PO DAILY 11/25/23 [History Last Taken 12/27/23] multivitamin (Daily Multi-Vitamin tablet) 1 tab PO DAILY 11/25/23 [History Last Taken 12/27/23] omeprazole 40 mg capsule,delayed release 40 mg PO DAILY 11/25/23 [History Last Taken 11/24/23] atorvastatin 20 mg tablet 20 mg PO QHS 12/27/23 [History Last Taken 12/26/23] bisacodyl 10 mg rectal suppository 10 mg VA DAILY PRN constipation 12/27/23 [History Last Taken 12/26/23] insulin lispro 100 unit/mL subcutaneous pen (Humalog KwikPen (U-100) Insulin) See Protocol subcut ACHS #1 mL 01/02/24 [Rx Last Taken Unknown] lisinopril 10 mg tablet 10 mg PO DAILY #1 TAB 01/02/24 [Rx Last Taken Unknown] metformin 500 mg tablet 500 mg PO BID #1 TAB 01/02/24 [Rx Last Taken Unknown] ascorbic acid (vitamin C) 1,000 mg tablet (Vitamin C) 1,000 mg PO DAILY 01/24/24 [History Last Taken Unknown] potassium chloride 20 mEq tablet,extended release(part/cryst) 20 meq PO DAILY 01/24/24 [History Last Taken Unknown] metronidazole 500 mg tablet 500 mg PO TID 3 days #9 tabs 01/27/24 [Rx Last Taken Unknown] sennosides 8.6 mg-docusate sodium 50 mg tablet (Stool Softener-Stimulant Laxative) 2 tab PO BID #0 tabs 01/27/24 [Rx Last Taken Unknown] albuterol sulfate 0.63 mg/3 mL solution for nebulization 0.63 mg inhalation Q4H PRN shortness of breath or wheezing 02/01/24 [History Last Taken Unknown] heparin (porcine) 5,000 unit/mL injection solution 5,000 unit subcut Q12H 02/01/24 [History Last Taken Unknown] ipratropium 0.5 mg-albuterol 3 mg (2.5 mg base)/3 mL nebulization soln 3 ml inhalation TID PRN SHORTNESS OF BREATH 02/01/24 [History Last Taken Unknown] ondansetron HCl 8 mg tablet 8 mg PO Q6H PRN nausea and vomiting 02/01/24 [History Last Taken Unknown] Allergy/AdvReac Type Severity Reaction Status Date / Time acetaminophen [From Tylenol] Allergy Rash Verified 02/01/24 13:03 amphetamine Allergy PT UNSURE Verified 02/01/24 13:03 OF REACTION aztreonam Allergy PT UNSURE Verified 02/01/24 13:03 OF REACTION carbamazepine Allergy PT UNSURE Verified 02/01/24 13:03 OF REACTION Carbapenems Allergy PT UNSURE Verified 02/01/24 13:03 OF REACTION celecoxib Allergy PT UNSURE Verified 02/01/24 13:03 OF REACTION codeine Allergy PT UNSURE Verified 02/01/24 13:03 OF REACTION doxycycline Allergy PT UNSURE Verified 02/01/24 13:03 OF REACTION epinephrine Allergy PT UNSURE Verified 02/01/24 13:03 OF REACTION latex Allergy PT UNSURE Verified 02/01/24 13:03 OF REACTION nickel Allergy PT UNSURE Verified 02/01/24 13:03 OF REACTION Penicillins Allergy Other Verified 02/01/24 13:03 pseudoephedrine Allergy PT UNSURE Verified 02/01/24 13:03 OF REACTION saccharin Allergy PT UNSURE Verified 02/01/24 13:03 OF REACTION Sulfa (Sulfonamide Allergy PT UNSURE Verified 02/01/24 13:03 Antibiotics) OF REACTION sulfamethoxazole Allergy PT UNSURE Verified 02/01/24 13:03 [From OF REACTION Sulfamethoxazole-Trimethoprim] trimethoprim Allergy PT UNSURE Verified 02/01/24 13:03 [From OF REACTION Sulfamethoxazole-Trimethoprim] Family History Mother Hypertension Father Hypertension Surgical History History of appendectomy History of surgery of liver Social History (Updated 04/17/24 @ 21:[address] Olga Lidia Rosen MD) household members: spouse housing: assisted Smoking Status: Former smoker alcohol intake: never substance use type: does not use ROS Review of Systems ROS Unobtainable: due to encephalopathy Vital Signs Vital Signs Vital Signs: 02/01/24 13:03 02/01/24 13:07 02/01/24 14:07 Temperature 96.7 F L 96.7 F L 99.9 F H Temperature Source Temporal Temporal Axillary Pulse Rate 92 92 58 L Respiratory Rate 18 18 20 H Respiratory Pattern Blood Pressure 181/138 H 181/138 H 100/78 Blood Pressure Mean 152 152 85 Pulse Ox 99 99 95 Oxygen Delivery Method Nasal Cannula Room Air Nasal Cannula Oxygen Flow Rate (L/min) 2 2 02/01/24 15:00 02/01/24 16:23 Temperature 99.9 F H Temperature Source Axillary Pulse Rate 82 88 Respiratory Rate 29 H 17 Respiratory Pattern Normal Blood Pressure 80/64 L Blood Pressure Mean 69 Pulse Ox 95 Oxygen Delivery Method Nasal Cannula Oxygen Flow Rate (L/min) 2 Weight Weight: 182 lb 5.156 oz Body Mass Index (BMI) 35.6 Physical Exam Narrative Physical Examination: General: Awakens to stimuli, intermittently alert, can answer some questions but is encephalopathic, follows some exam request, laying in the ED bed, ill-appearing, critical. Skin: Normal color, normal turgor, no icterus, no cyanosis except very staged ecchymoses, abrasions. HEENT: AT/NC, EOMI, PERRLA, dry MM, no carotid bruits or JVD noted. Lungs: Significantly diminished, mildly increased respiratory rate, some accessory muscle usage, no rales, ronchi or wheezing. Heart: R currently egular rate and rhythm; no gallop, rub audible. Abdomen: Soft, diffuse abdominal discomfort with no specific rebound or guarding, but patient does notably grimace, mildly distended and tympanitic, hyperactive BS, no appreciable HSM. Extremities: No cyanosis, no clubbing, left lower extremity braces in place status post tibial plateau fracture and malleolar fracture. Neurological: Awakens to stimuli, intermittently alert, can answer some questions but is encephalopathic, follows some exam request, laying in the ED bed, ill-appearing, critical, cognitive function not baseline intact; pupils equally reactive to light and accommodation, cranial nerves difficult to assess given encephalopathy, moving extremities, no specific overt focal deficits, strength severely globally decreased. Psychiatric: Affect appears flat, lethargic, critically ill-appearing, no acute evidence of depressive or anxiety feelings. Results Lab / Micro Data 02/01/24 14:23 02/01/24 14:23 Labs: Laboratory Results - last 24 hr 02/01/24 14:23: WBC 57.6 H*, RBC 4.57, Hgb 13.0, Hct 41.7, MCV 91.2, MCH 28.4, MCHC 31.2 L, RDW Std Deviation 50.4 H, RDW Coeff of Yasir 15.0 H, Plt Count 651 H, MPV 10.2, Immature Gran % (Auto) 3.500 H, Neut % (Auto) 84.9 H, Lymph % (Auto) 2.8 L, Crosby % (Auto) 8.6, Eos % (Auto) 0.0, Baso % (Auto) 0.2, Absolute Neuts (auto) 48.9 H, Absolute Lymphs (auto) 1.59, Nucleated RBC % 0, Diff Path Review May foll, Hypersegmented Neuts 1+ H, Platelet Estimate MOD INC, Sodium 126 L, Potassium 7.4 H*, Chloride 93 L, Carbon Dioxide 11.0 L, Anion Gap 22 H, BUN 57 H, Creatinine 4.15 H, Estim Creat Clear Calc 9.10, Est GFR (MDRD) Af Amer 13 L, Est GFR (MDRD) Non-Af 11 L, BUN/Creatinine Ratio 13.7, Glucose 283 H, Calcium 9.1, Total Bilirubin 0.60, AST 16, ALT 17, Alkaline Phosphatase 126 H, Total Protein 6.5, Albumin 2.6 L, Globulin 3.9, Albumin/Globulin Ratio 0.7 L, Lipase 11 L Assessment & Plan Assessment/Plan (1) Septic shock: PLAN: Plan The patient is an 88 y/o F w/ PMHx: CKD stage III unclear subtype, Chronic anemia, Asthma/COPD, HTN, HLD, Former tobacco use, Hx CVA, Hx VTE, CAD, Chronic Cholecystitis with cholecystostomy tube with recent discharge 01/27/24 following tube obstruction with exchange performed as well as treatment for severe constipation/rectal impaction who now re-presents to the [facility] ED on 02/01/24 with onset of nausea, emesis as well as diarrhea with diffuse abdominal discomfort with no reported fevers or chills but recent history prompted concern as well as ongoing, diffuse and cramping in nature, not improving prompting facility to transfer patient to the ED for evaluation. #1. Acute Encephalopathy secondary to #2 and Acute Septic Shock, Unclear Exact Source with evidence of sepsis-induced organ dysfunction/tissue hypoperfusion and sepsis induced hypotension despite adequate fluid administration as evidenced by significant hypotension, marked leukocytosis, notable lactic acidosis with generalized abdominal discomfort, nausea, emesis, diarrhea of unclear etiology: Will admit patient to the ICU, maintain on cardiac monitoring, continue IV bicarb drip, discussed at length the patient and family and will defer any usage of pressor therapy or central line per their preference, will obtain ABG, will initiate on stress dose hydrocortisone regimen, maintain IV Zosyn and IV vancomycin, awaiting urinalysis, will request stool culture as well as enteric given diarrhea, maintain n.p.o. on IV PPI, as needed antiemetic regimen, medical psychotherapist consulted and aware as well as general surgeon given recent presentation with cholecystitis with cholecystostomy tube although again CT is not marked appearing and hepatic profile is not severe appearing either. Will continue to trend lactic acid per facility protocol as well as repeat CBC, CMP. Requested sputum culture, urine antigens again given unclear source as well as respiratory viral panel. Given patient's severe presentation discussed very frankly with family poor prognosis to which they understand and if patient looks uncomfortable their preference is to then transition to comfort care. #2. Significant metabolic acidosis with acute kidney injury on CKD stage III unclear subtype and hyperkalemia: Admission potassium 7.4 not noted to be hemolyzed, CMP with CO2 11, BUN/creatinine 57/4.15 with baseline creatinine previously primarily 0.9-1.1, most recently noted 01/26/2024 creatinine 1.07, will continue bicarb drip and attempt administration of per rectal Kayexalate with continued serial BMP assessments and continued hyperkalemic protocol as needed, ABG requested, case and plan reviewed with nephrology. Additionally to be cautious will obtain acetone and urinalysis is also pending. #3. Recent discharge following Acute cholecystitis with cholecystostomy tube exchange: Patient recently discharged following change of her cholecystostomy tube as it was felt to be kinked with known history of acute cholecystitis, CT abdomen and pelvis as noted with no overt concerning findings and hepatic profile not marked appearing but unclear source of infection thus maintained on broad-spectrum antibiotic therapy including IV Zosyn, discussed case with Dr. Herrera who will also evaluate and follow. #4. Chronic normocytic anemia: Admission hemoglobin 13, suspect this is falsely elevated, most recently prior 8-9, last noted 01/26/2024 hemoglobin 9.7, continue to closely trend. #5. Recent history mechanical fall with left tibial plateau and medial malleolus with distal tibia and fibula fractures: Will continue nonweightbearing status with continued brace in place, offloading, positional changes. #6. CAD: Holding all oral regimen including aspirin, Coreg, lisinopril, statin therapy, resume once oral intake safe and if blood pressure does recover but suspect this will not be the case. #7. Chronic COPD/asthma: Will maintain on oxygen with wean as tolerated to room air, continue ATC duonebs, PRN albuterol, HOB, IS parameters. #8. Former tobacco use: Encourage continued tobacco cessation. #9. Hypertension: Holding all regimen given significant hypotensive presentation. #10. Hyperlipidemia: Holding all oral regimen including statin, resume if patient oral intake becomes safe. #11. History CVA: Given unclear safe oral intake at this time we will hold aspirin, hypertensive regimen given significant hypotension as noted number 1 and hold oral statin as well, resume once appropriate. #12. Diabetes mellitus type II: Hold oral home regimen, continue insulin therapy with consideration for one half dose while n.p.o. status, n.p.o. status with every 6 hours accu checks w/ ISS, as noted urinalysis and acetone levels requested given concerns. #13. History of VTE: Will maintain on SCDs and utilize chemoprophylactic heparin as noted. #14. GERD: Will maintain on IV PPI. #15. DVT prophylaxis: Heparin. #16. CODE status: Patient does not have healthcare Pap workers compensation defense attorney or living will in place but her who is present would be her decision-maker. Discussed CODE status at length including difference between FULL code, DNR-CCA and DNR-CC status. Following discussions about the differences in these status, requested DNR-CCA, no intubation, no central line, no pressor therapy. Family, patient and spouse note that if she declines and is in pain they would prefer transition to comfort measures. Advanced Care Planning Face to Face Time: 16 minutes. Charges/Coding Visit Charges Inpatient E&M: 83698 Init Hosp L3 Procedures Hospitalists Procedures: 40416 Advncd Care Plan 30 Min
[2024-02-01] MEDS: Piperacil/Tazobactam 4.5 GM in 0.9% Normal Saline (100mL MB+) 100 ML IV (17:05)
[2024-02-01] MEDS: 0.9% Normal Saline (1000mL) 1,000 ML 999 ML IV (17:06)
--- NOTE | 2024-02-01 17:42 | RAD_ITS ---
STUDY: X-RAY CHEST REASON FOR EXAM: Female, 88 years old. hypotension TECHNIQUE: Single frontal view of the chest. COMPARISON: Chest x-ray November 26, 2023 FINDINGS: The lungs are clear and expanded. There is no demonstrated pleural abnormality. Normal size heart. Normal mediastinum and augustina. Normal visualized pulmonary arteries. Normal visualized aortic arch and descending thoracic aorta. Normal visualized thoracic spine. There is degenerative osteoarthritis of the bilateral shoulders. There is no demonstrated abnormality of the visualized soft tissue structures of the upper abdomen. RAD/Chest 1 View IMPRESSION: No acute disease Electronically Signed: Ludwin Waller MD at 18:07 EDT ,
[2024-02-01 17:52] LABS: Lactic Acid 11.9 mmol/L (0.4-1.9)
--- NOTE | 2024-02-01 17:54 | ED.RN ---
Update given to [facility]. All questions by RN answered.
--- NOTE | 2024-02-01 20:14 | CON.PCM.SX_ITS ---
Assessment & Plan Assessment/Plan (1) Nausea vomiting and diarrhea: PLAN: Patient is an 88-year-old female with exceptionally complex past medical history who is previously deemed a nonoperative candidate for diagnosis of cholecystitis and underwent cholecystostomy tube placement last month. She presents with profuse vomiting and diarrhea. This is apparently led to acute renal failure with a markedly elevated creatinine and hyperkalemia. At baseline, patient has known to suffer from severe constipation so this is a clear departure from her normal status. CT imaging was read as colonic ileus with possible new stercoral colitis. However, based on patient's history I remain most suspicious for a possible opportunistic enteric pathogen such as C. difficile colitis and find that her residual contrast burden to be significantly decreased from her last CT exam. She is at high risk for such an infection given her recent hospitalizations with antibiotic use as well as her ongoing institutionalized status. Recommend stat enteric pathogen sampling and broad- spectrum antibiotic therapy in the interim. (2) Abdominal pain: PLAN: Mild, no evidence of peritonitis, felt to be secondary to the above (3) Cholecystostomy care: PLAN: Patient with indwelling cholecystostomy tube. Placement appears appropriate after my independent review of patient's CT imaging and furthermore the tube appears to be functioning well upon direct exam of patient HPI Consult Data Date of Consult: 02/01/24 HPI Narrative Reason for Consultation: Abdominal pain with nausea, vomiting, and diarrhea HPI Narrative: JEANNETTE PATEL, is a 88 F who presents from her nursing facility to [facility] after her nursing facility concluded they could simply not find a way to stop profuse vomiting and diarrhea that began today. Patient does confirm that she has some abdominal pain but denies other complaints. She is minimally communicative as she is quite tachypneic at this point but she does respond appropriately. Patient's ER workup was notable for numerous exceptional laboratories including leukocytosis of 58,000, potassium of greater than 7, lactic acid of greater than 11,... CT of the abdomen pelvis was performed and read by radiology as stable position of cholecystostomy tube as well as evidence of possible new stercoral ulcer and colitis. Patient is known to me from prior admission last month for cholecystitis. She was determined to be a prohibitive operative candidate and recommended cholecys tostomy tube placement. She underwent this placement with radiology but required readmission (that concluded 01/27/2024) when her cholecystostomy tube became kinked and she had symptoms of recurrent cholecystitis. COUNT INCLUDES THE [facility] Medical History Acute calculous cholecystitis Anemia Anxiety Asthma Bimalleolar fracture of left ankle Chest pain CHF (congestive heart failure) COPD (chronic obstructive pulmonary disease) Coronary artery disease DVT (deep venous thrombosis) Dysphagia Former smoker Fracture of left tibial plafond with involvement of fibula HTN (hypertension) Nausea & vomiting Osteoporosis Stroke/cerebrovascular accident Tibial plateau fracture, left Home Medications albuterol sulfate 90 mcg/actuation aerosol inhaler 2 puff inhalation Q6H PRN shortness of breath or wheezing 11/25/23 [History Last Taken Unknown] carvedilol 3.125 mg tablet 3.125 mg PO Q12H 11/25/23 [History Last Taken 12/27/23] fluticasone 500 mcg-salmeterol 50 mcg/dose blistr powdr for inhalation 1 inh inhalation Q12H 11/25/23 [History Last Taken 11/24/23] furosemide 40 mg tablet 40 mg PO DAILY 11/25/23 [History Last Taken 12/27/23] multivitamin (Daily Multi-Vitamin tablet) 1 tab PO DAILY 11/25/23 [History Last Taken 12/27/23] omeprazole 40 mg capsule,delayed release 40 mg PO DAILY 11/25/23 [History Last Taken 11/24/23] atorvastatin 20 mg tablet 20 mg PO QHS 12/27/23 [History Last Taken 12/26/23] bisacodyl 10 mg rectal suppository 10 mg AL DAILY PRN constipation 12/27/23 [History Last Taken 12/26/23] insulin lispro 100 unit/mL subcutaneous pen (Humalog KwikPen (U-100) Insulin) See Protocol subcut ACHS #1 mL 01/02/24 [Rx Last Taken Unknown] lisinopril 10 mg tablet 10 mg PO DAILY #1 TAB 01/02/24 [Rx Last Taken Unknown] metformin 500 mg tablet 500 mg PO BID #1 TAB 01/02/24 [Rx Last Taken Unknown] ascorbic acid (vitamin C) 1,000 mg tablet (Vitamin C) 1,000 mg PO DAILY 01/24/24 [History Last Taken Unknown] potassium chloride 20 mEq tablet,extended release(part/cryst) 20 meq PO DAILY 01/24/24 [History Last Taken Unknown] metronidazole 500 mg tablet 500 mg PO TID 3 days #9 tabs 01/27/24 [Rx Last Taken Unknown] sennosides 8.6 mg-docusate sodium 50 mg tablet (Stool Softener-Stimulant Laxative) 2 tab PO BID #0 tabs 01/27/24 [Rx Last Taken Unknown] albuterol sulfate 0.63 mg/3 mL solution for nebulization 0.63 mg inhalation Q4H PRN shortness of breath or wheezing 02/01/24 [History Last Taken Unknown] heparin (porcine) 5,000 unit/mL injection solution 5,000 unit subcut Q12H 02/01/24 [History Last Taken Unknown] ipratropium 0.5 mg-albuterol 3 mg (2.5 mg base)/3 mL nebulization soln 3 ml inhalation TID PRN SHORTNESS OF BREATH 02/01/24 [History Last Taken Unknown] ondansetron HCl 8 mg tablet 8 mg PO Q6H PRN nausea and vomiting 02/01/24 [History Last Taken Unknown] Allergy/AdvReac Type Severity Reaction Status Date / Time acetaminophen [From Tylenol] Allergy Rash Verified 02/01/24 13:03 amphetamine Allergy PT UNSURE Verified 02/01/24 13:03 OF REACTION aztreonam Allergy PT UNSURE Verified 02/01/24 13:03 OF REACTION carbamazepine Allergy PT UNSURE Verified 02/01/24 13:03 OF REACTION Carbapenems Allergy PT UNSURE Verified 02/01/24 13:03 OF REACTION celecoxib Allergy PT UNSURE Verified 02/01/24 13:03 OF REACTION codeine Allergy PT UNSURE Verified 02/01/24 13:03 OF REACTION doxycycline Allergy PT UNSURE Verified 02/01/24 13:03 OF REACTION epinephrine Allergy PT UNSURE Verified 02/01/24 13:03 OF REACTION latex Allergy PT UNSURE Verified 02/01/24 13:03 OF REACTION nickel Allergy PT UNSURE Verified 02/01/24 13:03 OF REACTION Penicillins Allergy Other Verified 02/01/24 13:03 pseudoephedrine Allergy PT UNSURE Verified 02/01/24 13:03 OF REACTION saccharin Allergy PT UNSURE Verified 02/01/24 13:03 OF REACTION Sulfa (Sulfonamide Allergy PT UNSURE Verified 02/01/24 13:03 Antibiotics) OF REACTION sulfamethoxazole Allergy PT UNSURE Verified 02/01/24 13:03 [From OF REACTION Sulfamethoxazole-Trimethoprim] trimethoprim Allergy PT UNSURE Verified 02/01/24 13:03 [From OF REACTION Sulfamethoxazole-Trimethoprim] Surgical History History of appendectomy Social History household members: spouse housing: retirement Smoking Status: Former smoker Physical Exam Const alert Constitutional Narrative: In distress with tachypnea and work of breathing General Appearance: cooperative Resp Resp Narrative: Tachypnea with shallow respirations and accessory muscles of inspiration are in active use GI GI Narrative: Moderately distended, soft, mildly tender to palpation (patient rates this 2 out of 10) of lower abdomen. Cholecystostomy tube in the right upper quadrant is no longer dressed but it is draining freely and in the drain there is transparent brown bile Lab / Micro Data 02/01/24 14:23 02/01/24 14:23 Labs: Laboratory Results - last 24 hr 02/01/24 14:23: WBC 57.6 H*, RBC 4.57, Hgb 13.0, Hct 41.7, MCV 91.2, MCH 28.4, MCHC 31.2 L, RDW Std Deviation 50.4 H, RDW Coeff of Yasir 15.0 H, Plt Count 651 H, MPV 10.2, Immature Gran % (Auto) 3.500 H, Neut % (Auto) 84.9 H, Lymph % (Auto) 2.8 L, [place] % (Auto) 8.6, Eos % (Auto) 0.0, Baso % (Auto) 0.2, Absolute Neuts (auto) 48.9 H, Absolute Lymphs (auto) 1.59, Nucleated RBC % 0, Diff Path Review May foll, Hypersegmented Neuts 1+ H, Platelet Estimate MOD INC, Sodium 126 L, Potassium 7.4 H*, Chloride 93 L, Carbon Dioxide 11.0 L, Anion Gap 22 H, BUN 57 H , Creatinine 4.15 H, Estim Creat Clear Calc 9.10, Est GFR (MDRD) Af Amer 13 L, Est GFR (MDRD) Non-Af 11 L, BUN/Creatinine Ratio 13.7, Glucose 283 H, Calcium 9.1, Total Bilirubin 0.60, AST 16, ALT 17, Alkaline Phosphatase 126 H, Total Protein 6.5, Albumin 2.6 L, Globulin 3.9, Albumin/Globulin Ratio 0.7 L, Lipase 11 L 02/01/24 16:30: Lactic Acid Cancelled 02/01/24 17:15: Lactic Acid 11.9 H* Rhythm Strip Rhythm Strip: Sinus Rhythm Rate: 77 Ectopy: None Imaging Radiology Impression Abdomen/Pelvis CT 02/01/24 13:21 IMPRESSION: Cholelithiasis and percutaneous cholecystostomy catheter unchanged. Colonic ileus and increased stool. Possible new stercoral colitis. Stable borderline nonspecific retroperitoneal lymphadenopathy. Electronically Signed: Ludwin Waller MD at 16:52 EDT , Chest X-Ray 02/01/24 17:42 IMPRESSION: No acute disease Electronically Signed: Ludwin Waller MD at 18:07 EDT , Charges/Coding Visit Charges Inpatient E&M: 10354 Init Hosp L2
[2024-02-01 20:16] LABS: Magnesium 3.1 mg/dL (1.6-2.6); Phosphorus 7.5 mg/dL (2.5-4.9)
[2024-02-01] MEDS: Sodium Bicarbonate 150 MEQ in Dextrose 5%-Water (1000mL Bag) 1,000 ML IV (20:18)
[2024-02-01] MEDS: Vancomycin HCl 2,000 MG in 0.9% Normal Saline (500mL Bag) 500 ML 250 MG IV (20:19)
[2024-02-01] MEDS: Hydrocortisone Sod Succinate 100 MG/2 ML Vial IV (20:21)
[2024-02-01] MEDS: Ipratropium/Albuterol Sulfate 3 ML AMPUL.NEB INHALATION (20:24)
--- NOTE | 2024-02-01 20:36 | PCM.RX.CS ---
Consult Antibiotic Management Pharmacy has been consulted to manage selected antibiotic: Vancomycin Type of Intervention Type of Consult: New start Goal Trough Goal Trough: 15-20 mcg/mL Pharmacy Plan for Drug Dosing Pharmacy Plan for Drug Dosing: NEW START IV VANCOMYCIN Consulting Physician: Dr. Rosen Indication: Shock, unknown source of infection Goal Trough: 15-20 SrCr: 4.15 (baseline ~1.0 from earlier this month) CrCl: 9 mL/min Comments: Patient had loading dose of 2000mg IV x1 in ED 02/01/24 @2019 Vancomycin Dose: Patient with impaired renal function. Will not schedule doses at this time d/t renal function and get a random level with AM labs on 02/03/24 to assess dosing at that time. Pending Level: *RANDOM* 02/03/24 @0600 Pharmacy Service will continue to monitor and adjust dosing as required.
[2024-02-01 20:41] LABS: Base Excess -20 mmol/L (-2 to +2); Bicarbonate 7.4 mmol/L (22-26); Blood Gas Specimen Type ART; Mode Not entered; O2 Delivery Device NRB; PO2 269 mmHG (75-100); SITE R Radial; SO2 100 % (95-99); Time Given 20:38:05; Total Carbon Dioxide 8 mmol/L; pCO2 18.1 mmHg (35-45); pH 7.22 (7.35-7.45)
[2024-02-01 20:51] LABS: Anion Gap 26 (5-15); BUN 54 mg/dL (7-18); BUN/Creat Ratio 13.4 RATIO (10-20); Calcium,Total 8.9 mg/dL (8.5-10.1); Chloride 95 mmol/L (98-107); Creatinine, Serum 4.02 mg/dL (0.55-1.02); EST Glomerular Filtration Rate 11 mL/min (>60); Est Glom Filt Rate - Afr Amer 14 mL/min (>60); Estimated Creatinine Clearance 9.19 ml/min; Glucose 245 mg/dL (74-106); Potassium 6.3 mmol/L (3.5-5.1); Sodium Level 131 mmol/L (136-145)
[2024-02-01 20:54] LABS: Procalcitonin 6.67 ng/mL (0.00-0.09)
[2024-02-01 20:56] LABS: Bedside Glucose 240 mg/dL (74-106)
[2024-02-01 21:20] LABS: Reflex Lactate? Y
[2024-02-01 21:42] LABS: M R Staph aureus DNA By PCR Negative (Negative); Probe Check PASS; Specimen Processing Control PASS
[2024-02-01] MEDS: Furosemide 20 MG/2 ML VIAL IV (22:27)
[2024-02-01] MEDS: 0.9% Saline Lock 10 ML Syringe IV ×2 (22:27→23:36)
[2024-02-01] MEDS: Morphine 2 MG/ML Syringe IV (23:36)
[2024-02-02] VITALS (7 sets, daily range): BP systolic 34–49; BP diastolic 17–26; PULSE 68–75; RESP 18–30; O2SAT 76–95
[2024-02-02] MEDS: 0.9% Saline Lock 10 ML Syringe IV ×2 (00:34→01:47)
[2024-02-02] MEDS: LORazepam 2 MG/ML Syringe 1 MG IV (00:34)
[2024-02-02] MEDS: Morphine 2 MG/ML Syringe IV (01:46)
[2024-02-02] MEDS: Atropine Sulfate 1% 2 ml Bottle 4 DRP PO (01:50)
--- NOTE | 2024-02-02 04:05 | EXP.PCM_ITS ---
Preliminary Cause of Preliminary Cause of Preliminary Cause of : Septic shock Date of Admission: 02/01/24 Date of : 02/02/24 Principle Diagnosis Problem List: Active and Suspected Problems (Updated 02/01/24 @ 20:[address] Olga Lidia Rosen MD) Septic shock (Acute) Acute hyperkalemia (Acute) Abdominal pain (Acute) History of diabetes mellitus (Acute) Leukocytosis (Acute) Acute kidney failure (Acute) Acute dehydration (Acute) Nausea vomiting and diarrhea (Acute) Cholecystostomy care (Acute) Patient is approaching 1 month with cholecystostomy tube intact. No evidence of ongoing cholecystitis by exam. Need to assess patency of the cystic duct to determine if patient is a candidate for cholecystostomy tube removal. Will place an order to radiology for this procedure and then follow-up with patient based on results. Hospital Course Halle Amos is an 88-year-old female who was recently hospitalized for acute cholecystitis but given her chronic condition and comorbidities it was elected to perform a cholecystostomy tube versus a cholecystectomy. The tube was initially placed on 12/28/2023 and she was [facility] however she presented back to the hospital secondary to kinking of the tube. In the ER surgery was able to straighten it out which started draining purulent material. She was ultimately discharged back to her detention and then presented on 02/01/2024 with acute metabolic encephalopathy due to septic shock though source was currently unclear. Broad-spectrum workup was being done and she was started on antibiotics however her condition since admission continued to deteriorate and it was discussed with her and her family that she would likely need to have a central line placed and potentially initiate pressor support however they have refused all of those measures and then ultimately decided to proceed with a DNR CC status. I did delay in providing any pain relief medications at this time secondary to the fact that the had gone home and we are attempting to get him on the phone to come back to the hospital. After several attempts failed to reach him and with permission of the daughter at bedside she was started on morphine and Ativan to be made comfortable as well as atropine drops for secretions. We also did trial a dose of Lasix which did not help much or increase in urine output. She did have acute renal failure on this admission. She on 02/02/2024 at 0347. Visit Charges Inpatient E&M: 35980 Disch Hosp
--- NOTE | 2024-02-02 04:57 | NURSING ---
0347 pt's behaviorist alarmed asystole. This RN assessed pt, auscultated for heart/lung sounds, none present. Verified with Sandra ACEVES. Daughter Malika at bedside.
[2024-02-02 09:50] LABS: Pathologist Review Reviewed
== END 2024-02-02 05:55 | DRG 871 ==
LOC: ED 16:47 → ICU 18:39
PROVIDERS: Admitting Provider Family Medicine; Emergency Provider Emergency Medicine; PCP Internal Medicine Geriatric Medicine; Visit Provider Family Medicine
DX: A41.9 Sepsis, unspecified organism (principal); R65.21 Severe sepsis with septic shock; G93.41 Metabolic encephalopathy; E87.20 Acidosis, unspecified; I13.0 Hypertensive heart and chronic kidney disease with heart failure and stage 1 through stage 4 chronic kidney disease, or unspecified chronic kidney disease; N17.9 Acute kidney failure, unspecified; E11.22 Type 2 diabetes mellitus with diabetic chronic kidney disease; D64.9 Anemia, unspecified; I50.9 Heart failure, unspecified; I95.9 Hypotension, unspecified; J44.9 Chronic obstructive pulmonary disease, unspecified; N18.30 Chronic kidney disease, stage 3 unspecified; Z79.4 Long term (current) use of insulin; Z93.50 Unspecified cystostomy status; I25.10 Atherosclerotic heart disease of native coronary artery without angina pectoris; K21.9 Gastro-esophageal reflux disease without esophagitis; E86.0 Dehydration; R19.7 Diarrhea, unspecified; E78.5 Hyperlipidemia, unspecified; E87.5 Hyperkalemia; R11.2 Nausea with vomiting, unspecified; Z79.2 Long term (current) use of antibiotics; Z87.891 Personal history of nicotine dependence; Z86.73 Personal history of transient ischemic attack (TIA), and cerebral infarction without residual deficits; Z79.899 Other long term (current) drug therapy; Z79.51 Long term (current) use of inhaled steroids; Z90.49 Acquired absence of other specified parts of digestive tract; Z86.718 Personal history of other venous thrombosis and embolism; R10.9 Unspecified abdominal pain
CPT/HCPCS: 36600; 51702; 71045; 74176; 80048; 80053; 82009; 82803; 82962; 83605; 83690; 83735; 84100; 84145; 85025; 87040; 87493; 87506; 87641; 93005; 94640; 99285; J7030; J7040; A4216; J0612; J1940; J2405